=== PATIENT | male | born 1950 | race Caucasian/White ===

== ENCOUNTER 2016-09-29 15:25 | Emergency (ER) | payer MEDICARE, OTHER ==
[~2016-09-29] VITALS: Ht 180.3 cm; Wt 98.0 kg
[~2016-09-29 15:25] MED LIST: DYAZ37.52 PO; LEVI20TA PO; PERC10TA27 PO; SERT50 PO; TAMS0.4C67 PO; ZOCO40TA PO
[2016-09-29 15:30] VITALS: BP_SYST 124; BP_SYST 131; BP_SYST 151; BP_DIAS 73; BP_DIAS 81; BP_DIAS 88; PULSE 88; RESP 20; TEMP 98.9; O2SAT 99
[2016-09-29 16:05] VITALS: BP 148/93; PULSE 89; RESP 18; O2SAT 99
[2016-09-29] MEDS ORDERED: ATOR20TA15 PO (16:09)
[2016-09-29] MEDS ORDERED: SODIUM CHLORIDE 0.9% FLUSH 10 ML FLUSH IVF PRN (16:30)
[2016-09-29] MEDS ORDERED: SODIUM CHLORID 0.9% 500 ML INJ 500 ML IV ONE (16:30)
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
[2016-09-29 17:06] LABS: AUTOMATED NEUTROPHIL # 4.8 TH/MM3 (1.8-7.7); BASOPHIL # 0.1 TH/MM3 (0-0.2); BASOPHIL % 0.9 % (0.0-2.0); EOSINOPHIL # 0.2 TH/MM3 (0-0.4); EOSINOPHIL % 2.5 % (0.0-4.0); HEMATOCRIT 45.9 % (39.0-51.0); HEMO FLAGS DIFF FINAL; LYMPH % 22.1 % (9.0-44.0); LYMPHOCYTE # 1.6 TH/MM3 (1.0-4.8); MEAN CELL VOLUME 89.1 FL (80.0-100.0); MEAN CORPUSCULAR HEMOGLOBIN 30.4 PG (27.0-34.0); MEAN CORPUSCULAR HGB CONC 34.2 % (32.0-36.0); MONO % 8.3 % (0.0-8.0); NEUT % 66.2 % (16.0-70.0); PLATELET COUNT 172 TH/MM3 (150-450); RED BLOOD COUNT 5.15 MIL/MM3 (4.50-5.90); RED CELL DISTRIBUTION WIDTH 13.4 % (11.6-17.2); WHITE BLOOD COUNT 7.3 TH/MM3 (4.0-11.0)
--- NOTE | 2016-09-29 17:06 | RADRPT ---
EXAM DATE/TIME: 09/29/2016 16:56 [facility] COMPARISON: No previous studies available for comparison. INDICATIONS : Dizziness with lightheadness and pain. RADIATION DOSE: 56.35 CTDIvol (mGy) MEDICAL HISTORY : Diabetes mellitus type 2. Lumbago. SURGICAL HISTORY : Head sx in 1972 ENCOUNTER: Initial ACUITY: 1 day PAIN SCALE: 2/10 LOCATION: Bilateral cranial TECHNIQUE: Multiple contiguous axial images were obtained of the head. Using automated exposure control and adj ustment of the mA and/or kV according to patient size, radiation dose was kept as low as reasonably a chievable to obtain optimal diagnostic quality images. DICOM format image data is available electro nically for review and comparison. FINDINGS: CEREBRUM: The ventricles are normal for age. No evidence of midline shift, mass lesion, hemorrhage or acute in farction. No extra-axial fluid collections are seen. POSTERIOR FOSSA: The cerebellum and brainstem are intact. The 4th ventricle is midline. The cerebellopontine angle i s unremarkable. EXTRACRANIAL: The visualized portion of the orbits is intact. SKULL: The calvaria is intact. No evidence of skull fracture. CONCLUSION: Normal examination. Madhav Munguia MD on September 29, 2016 at 17:03 Board Certified Radiologist. This report was verified electronically.
--- NOTE | 2016-09-29 17:09 | RADRPT ---
EXAM DATE/TIME: 09/29/2016 16:40 [facility] COMPARISON: No previous studies available for comparison. INDICATIONS : Short of breath and palpitation. MEDICAL HISTORY : None. SURGICAL HISTORY : None. ENCOUNTER: Initial ACUITY: 1 day PAIN SCORE: 0/10 LOCATION: Bilateral chest FINDINGS: A single view of the chest demonstrates the lungs to be symmetrically aerated without evidence of mas s, infiltrate or effusion. The cardiomediastinal contours are unremarkable. Osseous structures are intact. CONCLUSION: 1. No acute cardiopulmonary disease. Humphrey Dudley MD on September 29, 2016 at 17:08 Board Certified Radiologist. This report was verified electronically.
[2016-09-29 17:12] LABS: APTT (PATIENT) 25.6 SEC (24.3-30.1); PROTHROMBIN TIME - PATIENT 11.2 SEC (9.8-11.6)
[2016-09-29 17:14] LABS: BLOOD, URINE NEG (NEG); COMMENT (UR) CULT NOT INDICATED; CULTURE IF INDICATED CULT NOT INDICATED; GLUCOSE,URINE TRACE mg/dL (NEG); HYALINE CAST, URINE 10 /lpf (RARE); KETONE, URINE NEG (NEG); MUCUS URINE MANY /lpf (OCC); NITRITE,URINE NEG (NEG); PH, URINE 5.5 (5.0-8.5); URINE COLOR YELLOW (YELLW/STRAW)
[2016-09-29 17:32] LABS: ALT (GPT) 27 U/L (12-78); ANION GAP 7 MEQ/L (5-15); AST (GOT) 25 U/L (15-37); BICARBONATE 26.6 MEQ/L (21.0-32.0); BLOOD UREA NITROGEN 24 MG/DL (7-18); CHLORIDE 105 MEQ/L (98-107); GLOMERULAR FILTRATION RATE 40 ML/MIN (>89); MAGNESIUM 2.3 MG/DL (1.5-2.5); POTASSIUM 3.8 MEQ/L (3.5-5.1); SODIUM (NA) 139 MEQ/L (136-145)
[2016-09-29 17:36] LABS: ALKALINE PHOSPHATASE 70 U/L (45-117); CREATINE KINASE 104 U/L (39-308); TOTAL BILIRUBIN ADULT 0.9 MG/DL (0.2-1.0)
[2016-09-29 17:48] LABS: CKMB 0.8 NG/ML (0.5-3.6)
[2016-09-29] MEDS ORDERED: MECL12.574 PO (18:38)
[2016-09-29] MEDS ORDERED: VIST25CA PO (18:38)
--- NOTE | 2016-09-30 16:16 | EKG ---
Date Performed: 09/29/2016 Time Performed: 16:09:46 PTAGE: 66 years EKG: Sinus rhythm NORMAL ECG NO PREVIOUS TRACING DOCTOR: Fabien Cook Interpretating Date/Time 09/30/2016 16:14:59
--- NOTE | 2016-10-06 21:41 | MB ---
cc: MISHAOKSANA DATE OF CONSULTATION 10/06/16 REASON FOR CONSULTATION Ataxia and vertigo. HISTORY OF PRESENT ILLNESS This is a pleasant 66-year-old man who was previously in good health until about a month ago when he started having difficulty with balance where he would tend to stagger, walk from [id number] with walking had a shuffling type of gait. Also, his sons noted a tremor which was a resting tremor. He has had cognitive decline as well as slowing down with his thought processes and left facial expressiveness. He was seen in the ER about a week ago. CT of the brain was negative. He was seen [facility] earlier today who recommended presentation to the ER again because of progressive symptoms. PERSONAL HISTORY History of non-insulin diabetes, hyperlipidemia, depression, anxiety, umbilical hernia repair. MEDICATIONS AT HOME 1. Meclizine. 2. Vistaril. 3. . 4. Lisinopril. 5. Metformin. 6. Triamcinolone. 7. Zoloft. 8. Atorvastatin. ALLERGIES PENICILLIN. SOCIAL HISTORY Drinks alcohol rarely. He does not smoke. NEUROLOGIC EXAMINATION VITAL SIGNS: Blood pressure is 160/81, pulse 83, respiratory rate is 16, temperature 98.6 degrees. NEURO: Higher cortical function, he is alert. Speech is somewhat hypophonic and somewhat slurred. His responses are somewhat slow. There is no neglect. Cranial nerves: He has got diminished facial expressiveness. Extraocular movements are intact. Pupils equal, reactive. On motor exam he has got 5/5 strength of all groups. He is bradykinetic with mild cogwheeling in the upper extremities. [id number] shows mild dysmetria. He has no tremor today. Reflexes are symmetric. LABORATORY DATA White count 6900, hemoglobin 15.1, hematocrit 42%, platelet count 148,000, PT 11.2, INR 1, APTT 24.7. Sodium is 140, potassium 3.7, chloride 104, CO2 25.3, the BUN is 22, creatinine 1.72, glucose 123, AST 26, ALT is 26, alk phos 64. Urinalysis pH is 5.5, specific gravity 1.031, protein is 30. There are 2 WBCs. IMPRESSION The patient has a number of extrapyramidal as well as cerebellar features. Would recommend an MRI of the brain to rule out posterior fossa tumor, rule out hydrocephalus, although, I doubt this with a normal CT. If the CT is negative consider lumbar puncture to further evaluate for chronic [place]NER infectious etiology, also would check the 14-3-3 protein to rule out a variant of Creutzfeldt. We also recommend labs, thyroid panel, sed rate, ASH, B12 level. If all is negative consider a trial of Sinemet to rule out Parkinson's disease, although, the rapid onset is somewhat atypical. MD DILEEP Meeks/NIKKI /8:29 PM /9:26 PM
== END 2016-09-29 19:30 | disposition home or self-care (01) ==
LOC: NEPE 15:25
DX: R42 Dizziness and giddiness (principal); G47.8 Other sleep disorders; F32.9 Major depressive disorder, single episode, unspecified; R53.1 Weakness; R63.0 Anorexia; R63.4 Abnormal weight loss; E11.9 Type 2 diabetes mellitus without complications; E78.00 Pure hypercholesterolemia, unspecified; Z87.442 Personal history of urinary calculi; Z87.39 Personal history of other diseases of the musculoskeletal system and connective tissue; Z86.59 Personal history of other mental and behavioral disorders; Z86.69 Personal history of other diseases of the nervous system and sense organs
CPT/HCPCS: 70450; 71010; 80053; 81001; 82550; 82552; 83735; 84443; 84484; 85025; 85610; 85730; 93005; 96360; 99285; J7040

== ENCOUNTER 2016-10-06 11:17 | Observation (INO) | payer OTHER ==
[2016-10-06] VITALS (8 sets, daily range): BP systolic 133–161; BP diastolic 72–86; PULSE 65–86; RESP 16–18; TEMP 98–98.7; O2SAT 98–100
[~2016-10-06] VITALS: Ht 182.9 cm; Wt 97.5 kg
[~2016-10-06 11:17] MED LIST changes: +ATOR20TA15 PO; -DYAZ37.52 PO; -LEVI20TA PO; +MECL12.574 PO; -PERC10TA27 PO; -SERT50 PO; -TAMS0.4C67 PO; +VIST25CA PO; -ZOCO40TA PO
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
[2016-10-06] MEDS ORDERED: SODIUM CHLORIDE 0.9% FLUSH 10 ML FLUSH IVF PRN (11:45)
[2016-10-06] MEDS ORDERED: CLOT1CRE TOPICAL (11:50)
[2016-10-06] MEDS ORDERED: TRIA.1%T TOPICAL (11:50)
[2016-10-06] MEDS ORDERED: LISI10TA3 PO (11:50)
[2016-10-06] MEDS ORDERED: ZOLO50TA PO (11:50)
[2016-10-06] MEDS ORDERED: METF500T PO (11:50)
--- NOTE | 2016-10-06 12:09 | RADRPT ---
EXAM DATE/TIME: 10/06/2016 11:48 [facility] COMPARISON: CHEST SINGLE AP, September 29, 2016, 16:40. INDICATIONS : Weakness and loss of appetite. MEDICAL HISTORY : None. SURGICAL HISTORY : Umbilical hernia repair. ENCOUNTER: Initial ACUITY: 3 days PAIN SCORE: 0/10 LOCATION: Bilateral chest FINDINGS: Portable AP view of the chest demonstrates a normal-sized cardiac silhouette. No effusion, consolidat ion, or pneumothorax is visualized. The bones and soft tissues demonstrate no acute abnormality. CONCLUSION: No acute cardiopulmonary abnormality is identified. Madhav Paula MD on October 06, 2016 at 12:06 Board Certified Radiologist. This report was verified electronically.
[2016-10-06 12:23] LABS: AUTOMATED NEUTROPHIL # 4.7 TH/MM3 (1.8-7.7); BASOPHIL % 0.7 % (0.0-2.0); EOSINOPHIL # 0.1 TH/MM3 (0-0.4); EOSINOPHIL % 1.4 % (0.0-4.0); HEMATOCRIT 42.9 % (39.0-51.0); LYMPH % 22.2 % (9.0-44.0); LYMPHOCYTE # 1.5 TH/MM3 (1.0-4.8); MEAN CELL VOLUME 87.9 FL (80.0-100.0); MEAN CORPUSCULAR HGB CONC 35.3 % (32.0-36.0); MONO % 7.6 % (0.0-8.0); NEUT % 68.1 % (16.0-70.0); PLATELET COUNT 148 TH/MM3 (150-450); RED BLOOD COUNT 4.87 MIL/MM3 (4.50-5.90); RED CELL DISTRIBUTION WIDTH 13.2 % (11.6-17.2); WHITE BLOOD COUNT 6.9 TH/MM3 (4.0-11.0)
[2016-10-06 12:25] LABS: HEMO FLAGS DIFF FINAL
[2016-10-06 12:28] LABS: APTT (PATIENT) 24.7 SEC (24.3-30.1); PROTHROMBIN TIME - PATIENT 11.2 SEC (9.8-11.6)
[2016-10-06 12:36] LABS: ALT (GPT) 26 U/L (12-78); ANION GAP 11 MEQ/L (5-15); AST (GOT) 26 U/L (15-37); BICARBONATE 25.3 MEQ/L (21.0-32.0); BLOOD UREA NITROGEN 22 MG/DL (7-18); CHLORIDE 104 MEQ/L (98-107); GLOMERULAR FILTRATION RATE 40 ML/MIN (>89); POTASSIUM 3.7 MEQ/L (3.5-5.1); SODIUM (NA) 140 MEQ/L (136-145)
[2016-10-06 12:40] LABS: ALKALINE PHOSPHATASE 64 U/L (45-117); CREATINE KINASE 105 U/L (39-308)
[2016-10-06] MEDS ORDERED: ACETAMINOPHEN 325 MG TAB PO PRN (14:00)
[2016-10-06] MEDS ORDERED: ONDANSETRON HCL 4 MG/2 ML VIAL IVP PRN (14:00)
[2016-10-06] MEDS ORDERED: NALOXONE HCL 0.4 MG/ML AMP IV PRN (14:00)
[2016-10-06] MEDS ORDERED: LACTULOSE SYRUP 20 GM/30 ML CUP PO PRN (14:00)
[2016-10-06] MEDS ORDERED: MAGNESIUM HYDROXIDE SUSP 30 ML CUP PO PRN (14:00)
[2016-10-06] MEDS ORDERED: BISACODYL 10 MG SUPP RECTAL PRN (14:00)
[2016-10-06] MEDS ORDERED: SODIUM CHLORIDE 0.9% FLUSH 10 ML FLUSH IV FLUSH PRN (14:00)
[2016-10-06] MEDS ORDERED: SENNOSIDES 8.6 MG TAB PO PRN (14:00)
[2016-10-06 14:34] LABS: BLOOD, URINE NEG (NEG); GLUCOSE,URINE NEG (NEG); HYALINE CAST, URINE 6 /lpf (RARE); KETONE, URINE TRACE mg/dL (NEG); MUCUS URINE MOD /lpf (OCC); NITRITE,URINE NEG (NEG); PH, URINE 5.5 (5.0-8.5); SQUAMOUS EPITHELIAL CELL URINE <1 /hpf (0-5); URINE COLOR YELLOW (YELLW/STRAW)
[2016-10-06 14:36] LABS: COMMENT (UR) CULT NOT INDICATED; CULTURE IF INDICATED CULT NOT INDICATED
--- NOTE | 2016-10-06 15:13 | HHI.HP ---
HPI Service [facility] Primary Care Physician [facility] Admission Diagnosis syncope Diagnoses: Chief Complaint: Dizziness Travel History International Travel<30 Days: No Contact w/Intl Traveler <30 Da: No Traveled to Known Affected Are: No History of Present Illness Written by Jaime Cooley, acting as scribe for Dr. Blackwood on 10/06/16 at 15:03. This note was transcribed by scribISADORA Love. I, Dr. Benjamin Blackwood personally performed the history, physical exam, and medical decision making; and confirmed the accuracy of the information in the transcribed note. Authenticated by Dr. Benjamin Blackwood on 10/06/16 at 22:12. 66-year-old male with past medical history of DM, HLD, and anxiety/depression, HTN who presented for dizziness. Patient has been having on and off episodes of dizziness for the past 2 months. He states it feels that the room is spinning and it feels acute steady on his feet. Symptoms are exacerbated whenever he stands up. He denies any sensation like he is going to pass out. He reports decreased appetite lately, but denies any nausea, vomiting, or diarrhea. He denies any history of kidney disease. He states that rarely she gets headaches. He has noticed his vision hasn't been as good for the past month. He's been having a hard time focusing. His has been noticing generalized muscle jerking. His PCP started him on Zoloft yesterday. [facility] He has been having a hard time ambulating secondary to the unsteadiness. The patient doesn' t think he had any improvement with meclizine and hydroxyzine. Review of Systems Except as stated in HPI: all other systems reviewed are Neg Past Family Social History Past Medical History Diabetes mellitus Hyperlipidemia Hypertension Anxiety/depression Past Surgical History Umbilical hernia repair Reported Medications Prescribed on recent ED visit, patient reports no improvement: Vistaril (Hydroxyzine Pamoate) 25 Mg Cap 25 Mg PO HS 10 Days Meclizine (Meclizine HCl) 12.5 Mg Tab 12.5 Mg PO TID PRN Reported Lisinopril 10 Mg Tab 5 Mg PO DAILY Clotrimazole Topical (Clotrimazole) 1% Cream 1 Applic TOPICAL DAILY Metformin (Metformin HCl) 500 Mg Tab 500 Mg PO BID With meals Triamcinolone Topical (Triamcinolone Acetonide) 0.1% Cream 1 Applic TOPICAL DAILY Zoloft (Sertraline HCl) 50 Mg Tab 25 Mg PO DAILY 7 Days After 7 days, increase to 1 whole tablet (50mg) daily Atorvastatin (Atorvastatin Calcium) 20 Mg Tab 10 Mg PO HS Allergies: Coded Allergies: Penicillin (Verified Allergy, Severe, 10/06/16) Active Ordered Medications Current Medications Medications (Trade) Dose Ordered Sig/Alyssa Route Start Time Stop Time Status Last Admin (NS 1000 ml Inj) 1,000 ml @ 100 mls/hr Q10H IV 10/06/16 15:00 (NS Flush) 2 ml UNSCH PRN IV FLUSH 10/06/16 14:00 (NS Flush) 2 ml BID IV FLUSH 10/06/16 21:00 (Tylenol) 650 mg Q4H PRN PO 10/06/16 14:00 (Zofran Inj) 4 mg Q6H PRN IVP 10/06/16 14:00 (Narcan Inj) 0.4 mg UNSCH PRN IV 10/06/16 14:00 (Ambar-Colace) 1 tab BID PO 10/06/16 21:00 (Milk Of Magnesia Liq) 30 ml Q12H PRN PO 10/06/16 14:00 (Senokot) 17.2 mg Q12H PRN PO 10/06/16 14:00 (Dulcolax Supp) 10 mg DAILY PRN RECTAL 10/06/16 14:00 (Lactulose Liq) 30 ml DAILY PRN PO 10/06/16 14:00 Family History Multiple relatives with cancer and depression Social History Has one drink every 2 or 3 days Denies any tobacco use Physical Exam Vital Signs Vital Signs Date Time Temp Pulse Resp B/P Pulse Ox O2 Delivery O2 Flow Rate FiO2 10/06/16 12:02 82 141/78 10/06/16 12:02 82 18 141/78 99 Nasal Cannula 2 10/06/16 11:48 99 Nasal Cannula 2 10/06/16 11:44 86 18 135/82 99 Room Air 10/06/16 11:29 98.6 76 16 137/72 99 Room Air 10/06/16 11:29 76 137/72 10/06/16 11:29 99 Room Air 10/06/16 11:29 98.6 73 16 137/72 99 Physical Exam GENERAL: Well-developed well-nourished. In no acute distress. SKIN: Warm and dry. No lesions noted. HEENT: Normocephalic. Pupils equal and round and reactive to light. Mucous membranes pink and moist. CARDIOVASCULAR: Regular rate and rhythm. No murmur appreciated. RESPIRATORY: No accessory muscle use. Clear to auscultation. Breath sounds equal bilaterally. GASTROINTESTINAL: Abdomen soft, non-tender, nondistended. Bowel sounds x4. MUSCULOSKELETAL: No obvious deformities. No clubbing or cyanosis. No edema. NEUROLOGICAL: Awake and alert. No focal neurological deficits. Moves upper and lower extremities spontaneously. Normal speech. Strength 5/5. Normal finger to nose and rapid alternating movement. PSYCHIATRIC: Appropriate mood and affect; insight and judgment normal. Laboratory Laboratory Tests Test 10/06/16 10/06/16 11:30 14:00 White Blood Count 6.9 Red Blood Count 4.87 Hemoglobin 15.1 Hematocrit 42.9 Mean Corpuscular Volume 87.9 Mean Corpuscular Hemoglobin 31.0 Mean Corpuscular Hemoglobin 35.3 Concent Red Cell Distribution Width 13.2 Platelet Count 148 Mean Platelet Volume 9.1 Neutrophils (%) (Auto) 68.1 Lymphocytes (%) (Auto) 22.2 Monocytes (%) (Auto) 7.6 Eosinophils (%) (Auto) 1.4 Basophils (%) (Auto) 0.7 Neutrophils # (Auto) 4.7 Lymphocytes # (Auto) 1.5 Monocytes # (Auto) 0.5 Eosinophils # (Auto) 0.1 Basophils # (Auto) 0.0 CBC Comment DIFF FINAL Differential Comment Prothrombin Time 11.2 Prothromb Time International 1.0 Ratio Activated Partial 24.7 Thromboplast Time Sodium Level 140 Potassium Level 3.7 Chloride Level 104 Carbon Dioxide Level 25.3 Anion Gap 11 Blood Urea Nitrogen 22 Creatinine 1.72 Estimat Glomerular Filtration 40 Rate Random Glucose 123 Calcium Level 9.3 Magnesium Level 2.0 Total Bilirubin 1.0 Aspartate Amino Transf 26 (AST/SGOT) Alanine Aminotransferase 26 (ALT/SGPT) Alkaline Phosphatase 64 Total Creatine Kinase 105 Creatine Kinase MB 1.0 Troponin I LESS THAN 0.02 Total Protein 7.9 Albumin 4.0 Urine Color YELLOW Urine Turbidity HAZY Urine pH 5.5 Urine Specific [place] 1.031 Urine Protein 30 Urine Glucose (UA) NEG Urine Ketones TRACE Urine Occult Blood NEG Urine Nitrite NEG Urine Bilirubin NEG Urine Urobilinogen LESS THAN 2.0 Urine Leukocyte Esterase NEG Urine RBC LESS THAN 1 Urine WBC 2 Urine Squamous Epithelial <1 Cells Urine Hyaline Casts 6 Urine Mucus MOD Microscopic Urinalysis Comment CULT NOT INDICATED Result Diagram: 10/06/16 1130 10/06/16 1130 Imaging Last Impressions Chest X-Ray 10/06/16 1136 Signed Impressions: Service Date/Time: Thursday, October 06, 2016 11:48 - CONCLUSION: No acute cardiopulmonary abnormality is identified. Madhav Paula MD Assessment and Plan Assessment and Plan 66-year-old male with past medical history of DM, HLD, and anxiety/depression, HTN who presented for dizziness Dizziness/vertigo/ataxia: Unclear etiology. Reportedly normal carotid ultrasound as outpatient. Reviewed: Head CT 09/29/16 was unremarkable. Labs with signs of dehydration. Afebrile with no leukocytosis. -Neurology consultation, further imaging per neurology -PT eval -Monitor on telemetry -neuro checks -Consider underlying psychiatric etiology if neuro workup is unremarkable GEOVANY vs CKD: Creatinine 1.72, 1.70 on 09/29/16, no previous labs for comparison. Reports poor oral intake. IVF. Follow-up labs in the a.m. Diabetes mellitus: Hold home metformin for now. Monitor Accu-Cheks. Cover with SSI if needed. DVT prophylaxis: SCDs Discussed Condition With Patient with at bedside, ED staff Jaime Cooley Oct 06, 2016 15:13 Ena Blackwood DO Oct 06, 2016 22:12
[2016-10-06] MEDS: SODIUM CHLOR 0.9% 1000 ML INJ 1,000 ML IV SCH (15:36)
[2016-10-06] MEDS ORDERED: GLUCAGON 1 MG/ML VIAL OTHER PRN (16:45)
[2016-10-06] MEDS ORDERED: DEXTROSE 50% IN WATER 50 ML VIAL(D50) IV PRN (16:45)
[2016-10-06] MEDS ORDERED: MECLIZINE HCL 25 MG TAB PO PRN (17:00)
[2016-10-06] MEDS ORDERED: PILL SPLITTER OTHER PRN (17:00)
[2016-10-06] MEDS: clonazePAM 0.5 MG TAB PO PRN ×2 (17:29→22:01)
--- NOTE | 2016-10-06 17:53 | HHI.PR ---
Addendum to Inpatient Note Addendum Reason: Additional Documentation Additional Information Called by RN to reassess patient due to patient wanting leave leave against bilingual medical assistant and family had concerns. The patient is oriented to person, place, and time. The patient does maintain an odd affect, pressured speech, and does frequently need reorientation as he frequently reverts to talking about friends he lost in [place] and enemies he had to shoot there. He does deny any intent to hurt himself or others. He does not want any further inpatient workup, because he states he trusts [facility], but he has nothing against us here. Discussed with patient's and son. They state that the patient has made statements today about shooting himself in the head and burning down the hospital. He states that the patient is denying these to everybody else. They' re concerned for their safety and feel like he might hurt them are hurt himself if he were to go home. Recommended the patient stay for psychiatric evaluation here, and he wants his IV taken out so that he can go home. Discussed with Dr. Blackwood, we will Jha act the patient and have psychiatry evaluate him here. He refused as needed Klonopin earlier today. Haldol IM as needed for agitation. Ran. Jaime Cooley Oct 06, 2016 17:53
[2016-10-06] MEDS ORDERED: HALOPERIDOL LACTATE 5 MG/ML AMP IM PRN (18:00)
[2016-10-06] MEDS: SODIUM CHLORIDE 0.9% FLUSH 10 ML FLUSH IV FLUSH SCH (21:00)
[2016-10-06] MEDS: INSULIN ASPART SUPPLEMENTAL SCALE SQ SCH (21:00)
[2016-10-06] MEDS ORDERED: ATORVASTATIN 10 MG TAB PO SCH (21:00)
[2016-10-06] MEDS ORDERED: hydrOXYzine PAMOATE 25 MG CAP PO SCH (21:00)
[2016-10-06] MEDS: DOCUSATE SODIUM 50 MG/SENNA 8.6 MG TAB PO SCH (22:02)
[2016-10-07 04:36] VITALS: BP 130/69; PULSE 69; RESP 18; TEMP 98.6; O2SAT 96
[2016-10-07] MEDS: SODIUM CHLOR 0.9% 1000 ML INJ 1,000 ML IV SCH ×2 (06:34→11:00)
[2016-10-07] MEDS: INSULIN ASPART SUPPLEMENTAL SCALE SQ SCH ×2 (07:00→12:30)
[2016-10-07 07:17] VITALS: BP 126/78; PULSE 69; RESP 18; TEMP 98.1; O2SAT 99
[2016-10-07] MEDS ORDERED: GADOBENATE DIM PF 529 MG/ML 20ML VIAL (for RAD MRI) IV ONE (08:14)
--- NOTE | 2016-10-07 08:35 | RADRPT ---
EXAM DATE/TIME: 10/07/2016 07:54 [facility] COMPARISON: No previous studies available for comparison. INDICATIONS : Ataxia. MEDICAL HISTORY : None. SURGICAL HISTORY : Umbilical hernia repair. ENCOUNTER: Initial ACUITY: 1 day PAIN SCORE: 0/10 LOCATION: cranial Please note a normal MRA of the brain does not entirely exclude the possibility of a small aneurysm, nor the possibility of distal intracranial vessel disease. TECHNIQUE: 3D time of flight MRA was performed. Source images, multiplanar STS MIP, and 3D volume MIP reconstru ctions were reviewed. FINDINGS: Anterior circulation: The internal carotid arteries demonstrate no abnormality or atherosclerotic change. A1 segments and m ore distal anterior cerebral arteries are symmetric and within normal limits. The middle cerebral art esther branches demonstrate symmetric flow related enhancement. No aneurysm or high-grade stenosis is id entified. Posterior circulation: There are patent posterior cerebral arteries bilaterally. The left vertebral artery is dominant. The basilar artery and posterior cerebral arteries demonstrate no significant stenosis or abnormality. No aneurysm is visualized. CONCLUSION: No intracranial vascular abnormality is identified. Madhav Paula MD on October 07, 2016 at 8:31 Board Certified Radiologist. This report was verified electronically.
--- NOTE | 2016-10-07 08:42 | RADRPT ---
EXAM DATE/TIME: 10/07/2016 07:54 [facility] COMPARISON: CT BRAIN W/O CONTRAST, September 29, 2016, 16:56. INDICATIONS : Ataxia CONTRAST: 18 cc Multihance (gadobenate) IV MEDICAL HISTORY : None. SURGICAL HISTORY : Umbilical hernia repair. ENCOUNTER: Initial ACUITY: 1 day PAIN SCORE: 0/10 LOCATION: cranial TECHNIQUE: Multiplanar, multisequence MRI of the brain was performed both prior to and following the administrat ion of paramagnetic contrast. FINDINGS: CEREBRUM: The ventricles are within normal limits. No evidence of midline shift, mass lesion, hemorrhage or ac [place] infarction. No extraaxial fluid collections are seen. The pituitary gland and suprasellar ciste rn are normal in configuration. WHITE MATTER: No significant signal abnormalities are seen in the white matter. POSTERIOR FOSSA: The cerebellum and brainstem demonstrate no acute finding. The 4th ventricle is midline. The cerebel lopontine angle is unremarkable. The cerebellar tonsils are normal in position. DIFFUSION IMAGING: No focal areas of restricted diffusion are seen. No evidence of acute infarction. EXTRACRANIAL: The visualized portions of the orbits and paranasal sinuses are unremarkable. POST-CONTRAST: No abnormal areas of parenchymal or dural enhancement. No evidence of blood-brain barrier breakdown. CONCLUSION: Negative brain MRI with and without intravenous contrast. No acute finding is identified. Madhav Paula MD on October 07, 2016 at 8:36 Board Certified Radiologist. This report was verified electronically.
[2016-10-07] MEDS ORDERED: SERTRALINE HCL 50 MG TAB PO SCH (09:00)
[2016-10-07] MEDS: DOCUSATE SODIUM 50 MG/SENNA 8.6 MG TAB PO SCH (09:00)
[2016-10-07] MEDS: SODIUM CHLORIDE 0.9% FLUSH 10 ML FLUSH IV FLUSH SCH (09:00)
--- NOTE | 2016-10-07 09:28 | HHI.PR ---
Subjective Remarks Follow up for dizziness. The patient denies any dizziness today however has not yet attempted ambulation this morning. Denies any headache, visual changes, unilateral numbness/weakness. He wants to go home today. Discussed his family's concerns for suicidal ideations, patient denies any suicidal or homicidal ideations however is guarded with further questioning. Objective Vitals Vital Signs Date Time Temp Pulse Resp B/P Pulse Ox O2 Delivery O2 Flow Rate FiO2 10/07/16 07:17 98.1 69 18 126/78 99 10/07/16 04:36 98.6 69 18 130/69 96 10/06/16 23:37 98.7 65 18 133/79 100 10/06/16 20:36 98.0 66 18 161/82 100 10/06/16 15:00 83 16 160/81 99 Nasal Cannula 2 10/06/16 14:00 66 16 153/86 98 Nasal Cannula 2 10/06/16 13:00 76 18 133/83 99 Nasal Cannula 2 10/06/16 12:02 82 141/78 10/06/16 12:02 82 18 141/78 99 Nasal Cannula 2 10/06/16 11:48 99 Nasal Cannula 2 10/06/16 11:44 86 18 135/82 99 Room Air 10/06/16 11:29 98.6 76 16 137/72 99 Room Air 10/06/16 11:29 76 137/72 10/06/16 11:29 99 Room Air 10/06/16 11:29 98.6 73 16 137/72 99 I/O 10/06/16 10/06/16 10/06/16 10/07/16 10/07/16 10/07/16 07:00 15:00 23:00 07:00 15:00 23:00 Intake Total 240 ml 200 ml 300 ml Balance 240 ml 200 ml 300 ml Intake Oral 240 ml 200 ml 300 ml # Voids 1 Result Diagram: 10/06/16 1130 10/06/16 1130 Imaging Last Impressions Head Magnetic Resonance Angiography 10/07/16 0000 Signed Impressions: Service Date/Time: Friday, October 07, 2016 07:54 - CONCLUSION: No intracranial vascular abnormality is identified. Madhav Paula MD Brain MRI 10/07/16 0000 Signed Impressions: Service Date/Time: Friday, October 07, 2016 07:54 - CONCLUSION: Negative brain MRI with and without intravenous contrast. No acute finding is identified. Madhav Paula MD Chest X-Ray 10/06/16 1136 Signed Impressions: Service Date/Time: Thursday, October 06, 2016 11:48 - CONCLUSION: No acute cardiopulmonary abnormality is identified. Madhav Paula MD Objective Remarks GENERAL: Well-nourished, well-developed male patient in NAD. SKIN: Warm and dry. No rash. HEENT: Normocephalic. Atraumatic. Pupils equal and round. No nystagmus. Mucous membranes pink and moist. NECK: Supple. Trachea midline. CARDIOVASCULAR: Regular rate and rhythm. S1, S2 noted. No murmur appreciated. RESPIRATORY: No accessory muscle use. Clear to auscultation. Breath sounds equal bilaterally. GASTROINTESTINAL: Abdomen soft, non-tender, nondistended. Normoactive bowel sounds x4. MUSCULOSKELETAL: No obvious deformities. Extremities without clubbing, cyanosis , or edema. NEUROLOGICAL: Awake and alert. No obvious cranial nerve deficits. Motor grossly within normal limits. 5/5 muscle strength in bilateral upper and lower extremities. Normal speech. PSYCHIATRIC: Appropriate mood and affect; insight and judgment normal. Medications and IVs Current Medications Medications (Trade) Dose Ordered Sig/Alyssa Route Start Time Stop Time Status Last Admin (NS 1000 ml Inj) 1,000 ml @ 100 mls/hr Q10H IV 10/06/16 15:00 10/07/16 06:34 (NS Flush) 2 ml UNSCH PRN IV FLUSH 10/06/16 14:00 (NS Flush) 2 ml BID IV FLUSH 10/06/16 21:00 (Tylenol) 650 mg Q4H PRN PO 10/06/16 14:00 (Zofran Inj) 4 mg Q6H PRN IVP 10/06/16 14:00 (Narcan Inj) 0.4 mg UNSCH PRN IV 10/06/16 14:00 (Ambar-Colace) 1 tab BID PO 10/06/16 21:00 10/06/16 22:02 (Milk Of Magnesia Liq) 30 ml Q12H PRN PO 10/06/16 14:00 (Senokot) 17.2 mg Q12H PRN PO 10/06/16 14:00 (Dulcolax Supp) 10 mg DAILY PRN RECTAL 10/06/16 14:00 (Lactulose Liq) 30 ml DAILY PRN PO 10/06/16 14:00 (Lipitor) 10 mg HS PO 10/06/16 21:00 10/06/16 22:02 (Vistaril) 25 mg HS PO 10/06/16 21:00 10/06/16 22:02 (Antivert) 12.5 mg TID PRN PO 10/06/16 17:00 (Zoloft) 25 mg DAILY PO 10/07/16 09:00 (D50w (Vial) Inj) 50 ml UNSCH PRN IV 10/06/16 16:45 (Glucagon Inj) 1 mg UNSCH PRN OTHER 10/06/16 16:45 (KlonoPIN) 0.5 mg Q8H PRN PO 10/06/16 17:00 10/06/16 22:01 (Pill Splitter) 1 ea UNSCH PRN OTHER 10/06/16 17:00 A/P Problem List: (1) Vertigo ICD Code: R42 Status: Acute Assessment and Plan 66-year-old male with past medical history of DM, HLD, and anxiety/depression, HTN who presented for dizziness worsening over the past 2 months Dizziness/vertigo/ataxia: Unclear etiology. Reportedly normal carotid ultrasound as outpatient. Head CT 09/29/16 images reviewed, unremarkable. Labs with signs of dehydration. Afebrile, no leukocytosis. -Neurology consulted -Brain MRI/MRA images reviewed and unremarkable -PT eval ordered -Monitor on telemetry, no acute events -check orthostatics -neuro checks -dizziness improved -Consider underlying psychiatric etiology if neuro workup is unremarkable, psychiatry consulted Suicidal Ideations: per patient's family although patient denies -currently under Jha Act -consult psychiatry -continue sitter GEOVANY vs CKD: Creatinine 1.72, 1.70 on 09/29/16, no previous labs for comparison. Reports poor oral intake. -Given IVF. -Repeat labs pending -Avoid nephrotoxins Diabetes mellitus: Hold home metformin for now. -Monitor Accu-Cheks. -Cover with SSI if needed. DVT prophylaxis: SCDs Discharge Planning 0925hrs: Possible discharge later today if cleared by neurology and psychiatry. Also awaiting PT eval. 1300hrs: Discussed with Dr. Rosado, recommends admission to psychiatry. 1400hrs: Discussed with neurologist Dr. Branham, starting patient's on Sinemet for Parkinsonian symptoms. Also given B12 replacement. Dr. Branham ok with discharge to psychiatry, will follow up with the patient there. The patient is medically clear for discharge to inpatient psychiatry. Discharge patient to inpatient psychiatry Condition on discharge: Improved Heart healthy Diet as tolerated Ad Arti activity Rx written: Sinemet Follow-up with primary care physician at the [facility] within 1 week Zayra Lynch PA-C Oct 07, 2016 9:28 am
[2016-10-07 10:26] VITALS: BP_SYST 122; BP_SYST 125; BP_SYST 136; BP_DIAS 67; BP_DIAS 75; BP_DIAS 83; PULSE 73; RESP 18; TEMP 98.1; O2SAT 97
[2016-10-07 10:27] VITALS: PULSE 80
--- NOTE | 2016-10-07 11:52 | PD.PSY.CON ---
Provisional Diagnosis Admission Date Oct 06, 2016 at 14:03 [place] I. 1. Adjustment disorder, unspecified Rule out depressive diathesis Rule out PTSD Montgomery II. Deferred Montgomery V. GAF is presently unclear History of Present Illness Service Psychiatry Consult Requested By ISADORA Cooley Reason for Consult Jha act. Made suicidal and homicidal statements to family. Primary Care Physician [facility] HPI Mr. Luong is a 66-year-old male with no reported past psychiatric history, although I do see suggestions of depression in the chart and the patient is on Zoloft and Klonopin, who presented initially voluntarily from the [place] clinic with complaints of dizziness. Reviewing the electronic medical record , I see no prior psychiatric contact within our system. The patient was apparently trying to leave the hospital yesterday and was placed under a Jha Act after family disclosed the following to ISADORA in CDU: "Discussed with patient's and son. They state that the patient has made statements today about shooting himself in the head and burning down the hospital. He states that the patient is denying these to everybody else. They' re concerned for their safety and feel like he might hurt them are hurt himself if he were to go home." Patient seen and examined. Chart reviewed. Case discussed with ISADORA in the CDU. A sitter is at the bedside. On my examination today, the patient presents as somewhat flat and psychomotor slowed. He denies making any of the threats alluded to above. He denies any suicidal or homicidal ideation on direct questioning. He denies any particular issues with mood, nor can I elicit any depressive or hypomanic/manic symptoms. Sleep is somewhat poor. Appetite reportedly fair. Denies audiovisual hallucinations. No jeniffer delusions. He says that the vertiginous sensation was of relatively recent onset, although he does have a history of head injury in the past. Remainder of the psychiatric ROS is negative. With the patient's permission, I have tried several times to obtain collateral from his , [place], over the phone to clarify the situation. I have left a voicemail requesting a call back. Past psychiatric history: The patient denies a history of psychiatric diagnosis. He denies a history of inpatient or outpatient psychiatric treatment. He denies a history of suicide attempts. Family history: The patient denies any family history of mental illness. Chemical dependency history: The patient reports occasional use of alcohol. Denies any other substance use. Social history: The patient reports that he lives with his of 41 years. He has 2 sons. He has 2 years of college. He is a retired salesman. He served in the [employer] during [place] and [place] and had an honorable discharge. He did see combat but does not describe any PTSD symptoms at this time, nor has he [facility] he tells me. He denies any legal issues. Somewhat evasive on the question of whether he has access to guns or firearms. Review of Systems Except as stated in HPI: all other systems reviewed are Neg Past Family Social History Coded Allergies: Penicillin (Verified Allergy, Severe, 10/06/16) Past Medical History See electronic medical record Active Scripts Hydroxyzine Pamoate (Vistaril)25 Mg Cap25 Mg PO HS 10 Days Ref 0 Prov:Bryanna Laws DO 09/29/16 Meclizine 12.5 Mg Tab12.5 Mg PO TID PRN (VERTIGO) #20 TAB Prov:Bryanna Laws DO 09/29/16 Reported Medications Lisinopril 10 Mg Tab5 Mg PO DAILY #30 TAB Ref 0 10/06/16 Clotrimazole Topical 1% Cream1 Applic TOPICAL DAILY #15 GM 10/06/16 Metformin 500 Mg [id number] Mg PO BID #60 TAB Ref 0 With meals 10/06/16 Triamcinolone Topical 0.1% Cream1 Applic TOPICAL DAILY Ref 0 10/06/16 Sertraline (Zoloft)50 Mg Tab25 Mg PO DAILY 7 Days Ref 0 After 7 days, increase to 1 whole tablet (50mg) daily 10/06/16 Atorvastatin 20 Mg Tab10 Mg PO HS #30 TAB Ref 0 09/29/16 Current Medications Medications (Trade) Dose Ordered Sig/Alyssa Route Start Time Stop Time Status Last Admin (NS 1000 ml Inj) 1,000 ml @ 100 mls/hr Q10H IV 10/06/16 15:00 10/07/16 06:34 (NS Flush) 2 ml UNSCH PRN IV FLUSH 10/06/16 14:00 (NS Flush) 2 ml BID IV FLUSH 10/06/16 21:00 (Tylenol) 650 mg Q4H PRN PO 10/06/16 14:00 (Zofran Inj) 4 mg Q6H PRN IVP 10/06/16 14:00 (Narcan Inj) 0.4 mg UNSCH PRN IV 10/06/16 14:00 (Ambar-Colace) 1 tab BID PO 10/06/16 21:00 10/06/16 22:02 (Milk Of Magnesia Liq) 30 ml Q12H PRN PO 10/06/16 14:00 (Senokot) 17.2 mg Q12H PRN PO 10/06/16 14:00 (Dulcolax Supp) 10 mg DAILY PRN RECTAL 10/06/16 14:00 (Lactulose Liq) 30 ml DAILY PRN PO 10/06/16 14:00 (Lipitor) 10 mg HS PO 10/06/16 21:00 10/06/16 22:02 (Vistaril) 25 mg HS PO 10/06/16 21:00 10/06/16 22:02 (Antivert) 12.5 mg TID PRN PO 10/06/16 17:00 (Zoloft) 25 mg DAILY PO 10/07/16 09:00 10/07/16 09:21 (D50w (Vial) Inj) 50 ml UNSCH PRN IV 10/06/16 16:45 (Glucagon Inj) 1 mg UNSCH PRN OTHER 10/06/16 16:45 (KlonoPIN) 0.5 mg Q8H PRN PO 10/06/16 17:00 10/06/16 22:01 (Pill Splitter) 1 ea UNSCH PRN OTHER 10/06/16 17:00 Patient's Strengths (min. 2) In a monitored setting. Verbally fluent. Physical Exam Physical examination completed by primary team. On my examination today, the patient appears to be in no acute physical distress. No motor abnormalities noted. Labs and vitals reviewed: Vital Signs Vital Signs Date Time Temp Pulse Resp B/P Pulse Ox O2 Delivery O2 Flow Rate FiO2 10/07/16 10:27 80 10/07/16 10:26 98.1 18 136/75 97 122/67 125/83 10/06/16 15:00 Nasal Cannula 2 I/O 10/06/16 10/06/16 10/07/16 08:00 16:00 00:00 Intake Total 240 ml 200 ml Balance 240 ml 200 ml Lab Results Laboratory Tests Test 10/06/16 10/06/16 10/06/16 11:30 14:00 23:21 White Blood Count 6.9 TH/MM3 Red Blood Count 4.87 MIL/MM3 Hemoglobin 15.1 GM/DL Hematocrit 42.9 % Mean Corpuscular Volume 87.9 FL Mean Corpuscular Hemoglobin 31.0 PG Mean Corpuscular Hemoglobin 35.3 % Concent Red Cell Distribution Width 13.2 % Platelet Count 148 TH/MM3 Mean Platelet Volume 9.1 FL Neutrophils (%) (Auto) 68.1 % Lymphocytes (%) (Auto) 22.2 % Monocytes (%) (Auto) 7.6 % Eosinophils (%) (Auto) 1.4 % Basophils (%) (Auto) 0.7 % Neutrophils # (Auto) 4.7 TH/MM3 Lymphocytes # (Auto) 1.5 TH/MM3 Monocytes # (Auto) 0.5 TH/MM3 Eosinophils # (Auto) 0.1 TH/MM3 Basophils # (Auto) 0.0 TH/MM3 CBC Comment DIFF FINAL Differential Comment Prothrombin Time 11.2 SEC Prothromb Time International 1.0 RATIO Ratio Activated Partial 24.7 SEC Thromboplast Time Sodium Level 140 MEQ/L Potassium Level 3.7 MEQ/L Chloride Level 104 MEQ/L Carbon Dioxide Level 25.3 MEQ/L Anion Gap 11 MEQ/L Blood Urea Nitrogen 22 MG/DL Creatinine 1.72 MG/DL Estimat Glomerular Filtration 40 ML/MIN Rate Random Glucose 123 MG/DL Calcium Level 9.3 MG/DL Magnesium Level 2.0 MG/DL Total Bilirubin 1.0 MG/DL Aspartate Amino Transf 26 U/L (AST/SGOT) Alanine Aminotransferase 26 U/L (ALT/SGPT) Alkaline Phosphatase 64 U/L Total Creatine Kinase 105 U/L Creatine Kinase MB 1.0 NG/ML Troponin I LESS THAN 0.02 NG/ML Total Protein 7.9 GM/DL Albumin 4.0 GM/DL Urine Color YELLOW Urine Turbidity HAZY Urine pH 5.5 Urine Specific [place] 1.031 Urine Protein 30 mg/dL Urine Glucose (UA) NEG mg/dL Urine Ketones TRACE mg/dL Urine Occult Blood NEG Urine Nitrite NEG Urine Bilirubin NEG Urine Urobilinogen LESS THAN 2.0 MG/DL Urine Leukocyte Esterase NEG Urine RBC LESS THAN 1 /hpf Urine WBC 2 /hpf Urine Squamous Epithelial <1 /hpf Cells Urine Hyaline Casts 6 /lpf Urine Mucus MOD /lpf Microscopic Urinalysis Comment CULT NOT INDICATED Erythrocyte Sedimentation Rate 16 mm/hr Vitamin B12 Level 235 PG/ML Thyroid Stimulating Hormone 1.570 uIU/ML 3rd Gen Last Impressions Head Magnetic Resonance Angiography 10/07/16 0000 Signed Impressions: Service Date/Time: Friday, October 07, 2016 07:54 - CONCLUSION: No intracranial vascular abnormality is identified. Madhav Paula MD Brain MRI 10/07/16 0000 Signed Impressions: Service Date/Time: Friday, October 07, 2016 07:54 - CONCLUSION: Negative brain MRI with and without intravenous contrast. No acute finding is identified. Madhav Paula MD Chest X-Ray 10/06/16 1136 Signed Impressions: Service Date/Time: Thursday, October 06, 2016 11:48 - CONCLUSION: No acute cardiopulmonary abnormality is identified. Madhav Paula MD Mental Status Examination Patient is in hospital gown. He is well groomed. He is awake and alert and oriented 3. No evidence of delirium. No motor abnormalities noted. Speech within normal limits for rate, tone and volume. Language and fund of knowledge average. Denies mood issues and affect blunted, tending towards flat. Thought process a little slowed but linear. No loosening of associations. No delusions elicited. No audiovisual hallucinations. Denies suicidal or homicidal ideation. Insight and judgment are unclear. Assessment & Plan Problem List: (1) Adjustment disorder ICD Code: F43.20 Assessment & Plan This is a 66-year-old male with psychiatric history as detailed above who is presently admitted to the CDU and under a Jha act. Patient is alleged to have made suicidal and violent threats to family yesterday. He denies making any such threats today and denies suicidal or homicidal ideation at this time. He is somewhat psychomotor slowed and his affect a little flat, but there is otherwise very little evidence of any sort of unstable psychiatric illness in this patient. My best guess would be that the patient was upset yesterday and made the alleged statements, if he did so at all, in this context. However, in the absence of reassuring collateral I think that the most prudent course of action is to continue to observe the patient. If the patient is medically cleared, he may be transferred to the inpatient psychiatric unit for further observation there. Sitter while patient remains in the CDU. Case discussed with PA in the CDU Arnoldo Lynch. Thank you very much for this consultation. Problem Qualifiers (1) Adjustment disorder: Qualified Code: F43.20 - Adjustment disorder, unspecified type Kranthi Rosado MD Oct 07, 2016 11:52
[2016-10-07 12:34] VITALS: BP 140/75; PULSE 69; RESP 20; TEMP 98; O2SAT 98
--- NOTE | 2016-10-07 13:40 | EKG ---
Date Performed: 10/06/2016 Time Performed: 11:39:02 PTAGE: 66 years EKG: Sinus rhythm NORMAL ECG PREVIOUS TRACING : 09/29/2016 16.09 Since previous tracing, no significant change noted DOCTOR: Demetrice Yepez Interpretating Date/Time 10/07/2016 13:38:06
--- NOTE | 2016-10-07 13:57 | HHI.PR ---
Review/Management Diagnosis He has Parkinsonian sx and low B12. Plan vitamin B12 supplements trial of sinemet Diagnosis/Plan: Subjective Subjective Comments No acute events reported I saw patient yesterday in consult and dictated note--but note not yet on the chart. Active Medications Current Medications Medications (Trade) Dose Ordered Sig/Alyssa Route Start Time Stop Time Status Last Admin (NS 1000 ml Inj) 1,000 ml @ 100 mls/hr Q10H IV 10/06/16 15:00 10/07/16 06:34 (NS Flush) 2 ml UNSCH PRN IV FLUSH 10/06/16 14:00 (NS Flush) 2 ml BID IV FLUSH 10/06/16 21:00 (Tylenol) 650 mg Q4H PRN PO 10/06/16 14:00 (Zofran Inj) 4 mg Q6H PRN IVP 10/06/16 14:00 (Narcan Inj) 0.4 mg UNSCH PRN IV 10/06/16 14:00 (Ambar-Colace) 1 tab BID PO 10/06/16 21:00 10/06/16 22:02 (Milk Of Magnesia Liq) 30 ml Q12H PRN PO 10/06/16 14:00 (Senokot) 17.2 mg Q12H PRN PO 10/06/16 14:00 (Dulcolax Supp) 10 mg DAILY PRN RECTAL 10/06/16 14:00 (Lactulose Liq) 30 ml DAILY PRN PO 10/06/16 14:00 (Lipitor) 10 mg HS PO 10/06/16 21:00 10/06/16 22:02 (Vistaril) 25 mg HS PO 10/06/16 21:00 10/06/16 22:02 (Antivert) 12.5 mg TID PRN PO 10/06/16 17:00 (Zoloft) 25 mg DAILY PO 10/07/16 09:00 10/07/16 09:21 (D50w (Vial) Inj) 50 ml UNSCH PRN IV 10/06/16 16:45 (Glucagon Inj) 1 mg UNSCH PRN OTHER 10/06/16 16:45 (KlonoPIN) 0.5 mg Q8H PRN PO 10/06/16 17:00 10/06/16 22:01 (Pill Splitter) 1 ea UNSCH PRN OTHER 10/06/16 17:00 Allergies Allergies Coded Allergies Penicillin (Verified Allergy, Severe, 10/06/16) Exam I&O / VS 10/06/16 10/06/16 10/07/16 15:00 23:00 07:00 Intake Total 240 ml 200 ml 300 ml Balance 240 ml 200 ml 300 ml Intake Oral 240 ml 200 ml 300 ml # Voids 1 Vital Signs Date Time Temp Pulse Resp B/P Pulse Ox O2 Delivery O2 Flow Rate FiO2 10/07/16 12:34 98.0 69 20 140/75 98 10/07/16 10:27 80 10/07/16 10:26 98.1 73 18 136/75 97 122/67 125/83 10/07/16 07:17 98.1 69 18 126/78 99 10/07/16 04:36 98.6 69 18 130/69 96 10/06/16 23:37 98.7 65 18 133/79 100 10/06/16 20:36 98.0 66 18 161/82 100 10/06/16 15:00 83 16 160/81 99 Nasal Cannula 2 10/06/16 14:00 66 16 153/86 98 Nasal Cannula 2 Exam Comments alert speech hypophonic decrease facial expresion eomi MOTOR--bradykinetic 07/07 BUE and BLE, cogwheeling BUE Objective Radiology Results MRI brain normal MRA normal brain Micro and Labs Laboratory Tests Test 10/06/16 10/06/16 14:00 23:21 Urine Color YELLOW Urine Turbidity HAZY Urine pH 5.5 Urine Specific [place] 1.031 Urine Protein 30 Urine Glucose (UA) NEG Urine Ketones TRACE Urine Occult Blood NEG Urine Nitrite NEG Urine Bilirubin NEG Urine Urobilinogen LESS THAN 2.0 Urine Leukocyte Esterase NEG Urine RBC LESS THAN 1 Urine WBC 2 Urine Squamous Epithelial <1 Cells Urine Hyaline Casts 6 Urine Mucus MOD Microscopic Urinalysis Comment CULT NOT INDICATED Erythrocyte Sedimentation Rate 16 Vitamin B12 Level 235 Thyroid Stimulating Hormone 1.570 3rd Gen Miguelito Branham PhD MD Oct 07, 2016 13:57
[2016-10-07] MEDS ORDERED: CYANOCOBALAMIN 1000 MCG/ML VIAL IM ONE (14:00)
[2016-10-07] MEDS ORDERED: CARB25TA9 PO (14:10)
[2016-10-07] MEDS ORDERED: CARBIDOPA/LEVODOPA 25 MG/100 MG TAB PO SCH (21:00)
[2016-10-09 10:03] LABS: RAPID PLASMA REAGIN SCREEN NON-REACTIVE (NON-REACTVE)
[2016-10-09 15:49] LABS: ANA SCREEN NEG (NEG)
== END 2016-10-07 15:17 ==
LOC: NEPE 11:17 → NEDA 14:03 → NEPGCP 17:50
PROVIDERS: ADMIT Hospitalist; ATTEND Hospitalist
DX: R55 Syncope and collapse (principal); R42 Dizziness and giddiness; R63.0 Anorexia; R53.83 Other fatigue; R41.0 Disorientation, unspecified; R45.1 Restlessness and agitation; R45.851 Suicidal ideations; R25.8 Other abnormal involuntary movements; R53.1 Weakness; R27.0 Ataxia, unspecified; I10 Essential (primary) hypertension; E78.5 Hyperlipidemia, unspecified; E78.00 Pure hypercholesterolemia, unspecified; E11.9 Type 2 diabetes mellitus without complications; F41.9 Anxiety disorder, unspecified; F32.9 Major depressive disorder, single episode, unspecified; F41.0 Panic disorder [episodic paroxysmal anxiety]; M54.5 Low back pain; G89.29 Other chronic pain; G43.909 Migraine, unspecified, not intractable, without status migrainosus; Z79.84 Long term (current) use of oral hypoglycemic drugs; Z79.899 Other long term (current) drug therapy
CPT/HCPCS: 70544; 70553; 71010; 80053; 81001; 82550; 82552; 82607; 82948; 83735; 84443; 84484; 85025; 85610; 85652; 85730; 86038; 86592; 93005; 96360; 96361; 96372; 97162; 99285; A9577; G0378; G8987; G8988; J3420; J7030; Q0177

== ENCOUNTER 2016-10-07 14:30 | Inpatient (IN) | payer OTHER, MEDICARE ==
[~2016-10-07] VITALS: Ht 180.3 cm; Wt 90.5 kg
[~2016-10-07 14:30] MED LIST changes: +CARB25TA9 PO; +CLOT1CRE TOPICAL; +LISI10TA3 PO; +METF500T PO; +TRIA.1%T TOPICAL; +ZOLO50TA PO
[2016-10-07] MEDS ORDERED: GLUCAGON 1 MG/ML VIAL OTHER PRN (16:15)
[2016-10-07] MEDS ORDERED: BENZTROPINE MESYLATE 2 MG/2 ML VIAL IM PRN (16:15)
[2016-10-07] MEDS ORDERED: DEXTROSE 50% IN WATER 50 ML VIAL(D50) IV PRN (16:15)
[2016-10-07] MEDS ORDERED: BENZTROPINE MESYLATE 1 MG TAB PO PRN (16:15)
[2016-10-07] MEDS ORDERED: MAGNESIUM HYDROXIDE SUSP 30 ML CUP PO PRN (16:15)
[2016-10-07] MEDS ORDERED: MECLIZINE HCL 25 MG TAB PO PRN (16:15)
[2016-10-07] MEDS ORDERED: ALUMINUM/MAGNESIUM/SIMETH 30 ML CUP PO PRN (16:15)
[2016-10-07 16:41] VITALS: BP 130/92; PULSE 87; RESP 18
[2016-10-07] MEDS ORDERED: PILL SPLITTER OTHER PRN (16:45)
[2016-10-07 17:00] VITALS: BP 101/75; PULSE 74; RESP 16; TEMP 97.9; O2SAT 99
[2016-10-07] MEDS: INSULIN ASPART SUPPLEMENTAL SCALE SQ SCH (21:00)
[2016-10-07] MEDS: ATORVASTATIN 10 MG TAB PO SCH (21:23)
[2016-10-07] MEDS: CARBIDOPA/LEVODOPA 25 MG/100 MG TAB PO SCH (21:23)
[2016-10-07] MEDS: metFORMIN HCL 500 MG TAB PO SCH (21:23)
[2016-10-07] MEDS: hydrOXYzine PAMOATE 25 MG CAP PO SCH (21:24)
[2016-10-07] MEDS: diphenhydrAMINE HCL 50 MG CAP PO PRN (21:24)
[2016-10-08 05:49] VITALS: BP 128/95; PULSE 98; RESP 16; TEMP 97.5; O2SAT 98
[2016-10-08] MEDS: INSULIN ASPART SUPPLEMENTAL SCALE SQ SCH ×5 (06:17→20:51)
[2016-10-08] MEDS ORDERED: REMOVE OLD PATCH T-DERMAL SCH (09:00)
[2016-10-08] MEDS ORDERED: NICOTINE 21 MG/24 HR PATCH T-DERMAL SCH (09:00)
[2016-10-08] MEDS: TRIAMCINOLONE ACETONIDE 0.1% CREAM 15 GM TOPICAL SCH (09:00)
[2016-10-08] MEDS ORDERED: SERTRALINE HCL 50 MG TAB PO SCH (09:00)
[2016-10-08] MEDS: metFORMIN HCL 500 MG TAB PO SCH (09:46)
[2016-10-08] MEDS: CARBIDOPA/LEVODOPA 25 MG/100 MG TAB PO SCH ×2 (09:46→20:47)
[2016-10-08] MEDS: CLOTRIMAZOLE 1% CREAM 15 GM TOPICAL SCH (09:47)
--- NOTE | 2016-10-08 09:47 | HHI.HP ---
Provisional Diagnosis Admission Date Oct 07, 2016 at 14:30 [place]. 1. Adjustment disorder, unspecified Rule out PTSD Rule out mild neurocognitive disorder Rule out primary psychotic process, although this seems significantly less likely [place]. Deferred Certification of Person's Competence To Provide Express and Informed Consent I have personally examined James Luong , a person being served at [facility] on, Oct 08, 2016 09:30. Express and informed consent means consent voluntarily given in writing, by a competent person, after sufficient explanation and disclosure of the subject matter involved to enable the person to make a knowing and willful decision without any element of force, fraud, deceit, duress, or other form of constraint or coercion. This person is 18 years of age or older, is not now known to be incompetent to consent to treatment with a guardian advocate, and does not have a health care surrogate or proxy currently making medical treatment decisions. I have found this person to be one of the following: [x] Competent to provide express and informed consent, as defined above, for voluntary admission to this facility and is competent to provide express and informed consent for treatment. He/she has the consistent capacity to make well reasoned, willful, and knowing decisions concerning his or her medical or mental health treatment. The person fully and consistently understands the purpose of the admission for examination/placement and is fully capable of personally exercising all rights assured under [place] Incompetent to provide express and informed consent to voluntary admission, and this is incompetent to provide express and informed consent to treatment. The person must be transferred to involuntary status and a petition for a guardian advocate filed with the Circuit Court. [] Refusing to provide express and informed consent to voluntary admission but is competent to provide express and informed consent for treatment. The person must be discharged or transferred to involuntary status. Form shall be completed within 24 hours of a person's arrival at the receiving facility and filed in the clinical record of each person: 1. Admitted on a voluntary basis 2. Permitted to provide express and informed consent to his/her own treatment 3. Allowed to transfer from involuntary to voluntary status 4. Prior to permitting a person to consent to his or her own treatment after having been previously found incompetent to consent to treatment. History of Present Illness Capacity: Has Capacity HPI From my consult note yesterday in the CDU: Mr. Luong is a 66-year-old male with no reported past psychiatric history, although I do see suggestions of depression in the chart and the patient is on Zoloft and Klonopin, who presented initially voluntarily from the [facility] with complaints of dizziness. Reviewing the electronic medical record , I see no prior psychiatric contact within our system. The patient was apparently trying to leave the hospital yesterday and was placed under a Jha Act after family disclosed the following to PA in CDU: "Discussed with patient's and son. They state that the patient has made statements today about shooting himself in the head and burning down the hospital. He states that the patient is denying these to everybody else. They' re concerned for their safety and feel like he might hurt them are hurt himself if he were to go home." Patient seen and examined. Chart reviewed. Case discussed with PA in the CDU. A sitter is at the bedside. On my examination today, the patient presents as somewhat flat and psychomotor slowed. He denies making any of the threats alluded to above. He denies any suicidal or homicidal ideation on direct questioning. He denies any particular issues with mood, nor can I elicit any depressive or hypomanic/manic symptoms. Sleep is somewhat poor. Appetite reportedly fair. Denies audiovisual hallucinations. No jeniffer delusions. He says that the vertiginous sensation was of relatively recent onset, although he does have a history of head injury in the past. Remainder of the psychiatric ROS is negative. With the patient's permission, I have tried several times to obtain collateral from his , [place], over the phone to clarify the situation. I have left a voicemail requesting a call back. Past psychiatric history: The patient denies a history of psychiatric diagnosis. He denies a history of inpatient or outpatient psychiatric treatment. He denies a history of suicide attempts. Family history: The patient denies any family history of mental illness. Chemical dependency history: The patient reports occasional use of alcohol. Denies any other substance use. Social history: The patient reports that he lives with his of 41 years. He has 2 sons. He has 2 years of college. He is a retired salesman. He served in the [employer] during [place] and [place] and had an honorable discharge. He did see combat but does not describe any PTSD symptoms at this time, nor has he [facility] this [facility] he tells me. He denies any legal issues. Somewhat evasive on the question of whether he has access to guns or firearms. On my exam today: Patient seen and examined. Chart reviewed. Case discussed with nursing staff. No problematic behaviors noted overnight by nursing staff. On my examination today, I discussed the patient's 's concerns obtained from telephone collateral with the patient. He agrees that he has been somewhat more short- tempered of late. "The news infuriates me and we're the dummies paying for it. I seen it myself when I was in the . Waste, vast quantities of waste. " He speaks quite a bit about his experiences in [place], and this seems quite fresh for him. He does endorse some re-experiencing and hyperarousal but no real avoidance. He does say that he worries that his short temper places him at risk for violence, noting "I don't want to hurt anyone that I don't want to hurt up here [gesturing to his head]." He denies any HI. No SI. Otherwise no new psychiatric symptomatology versus yesterday. Past psychiatric, family, chemical dependency and social history are likewise unchanged. Review of Systems Except as stated in HPI: all other systems reviewed are Neg Past Psych History Psychological trauma history History of combat trauma Violence risk - others (6 mos) Indeterminate. Patient denies any homicidal ideation at this time. Violence risk - self (6 mos) Suspect lower imminent risk. No suicidal ideation. Substance Abuse History Drugs/Alcohol past 12 months See above Past Family Social History Coded Allergies: Penicillin (Verified Allergy, Severe, 10/06/16) Past Medical History See electronic medical record Active Scripts Carbidopa-Levodopa 25-100 Mg Tab1 Tab PO Q12HR #60 TAB Prov:Zayra Lynch PA-C 10/07/16 Hydroxyzine Pamoate (Vistaril)25 Mg Cap25 Mg PO HS 10 Days Ref 0 Prov:Bryanna Laws DO 09/29/16 Meclizine 12.5 Mg Tab12.5 Mg PO TID PRN (VERTIGO) #20 TAB Prov:Bryanna Laws DO 09/29/16 Reported Medications Clotrimazole Topical 1% Cream1 Applic TOPICAL DAILY #15 GM 10/06/16 Metformin 500 Mg Ikj232 Mg PO BID #60 TAB Ref 0 With meals 10/06/16 Triamcinolone Topical 0.1% Cream1 Applic TOPICAL DAILY Ref 0 10/06/16 Sertraline (Zoloft)50 Mg Tab25 Mg PO DAILY 7 Days Ref 0 After 7 days, increase to 1 whole tablet (50mg) daily 10/06/16 Atorvastatin 20 Mg Tab10 Mg PO HS #30 TAB Ref 0 09/29/16 Discontinued Reported Medications Lisinopril 10 Mg Tab5 Mg PO DAILY #30 TAB Ref 0 10/06/16 Current Medications Medications (Trade) Dose Ordered Sig/Alyssa Route Start Time Stop Time Status Last Admin (Ativan) 1 mg Q6H PRN PO 10/07/16 16:15 (Ativan Inj) 1 mg Q6H PRN IM 10/07/16 16:15 (Benadryl) 50 mg HS PRN PO 10/07/16 16:15 10/07/16 21:24 (Tylenol) 650 mg Q4H PRN PO 10/07/16 16:15 (Milk Of Magnesia Liq) 30 ml DAILY PRN PO 10/07/16 16:15 (Mag-Al Plus Susp Liq) 30 ml Q6H PRN PO 10/07/16 16:15 (Cogentin) 1 mg Q12H PRN PO 10/07/16 16:15 (Cogentin Inj) 1 mg Q12H PRN IM 10/07/16 16:15 (Lipitor) 10 mg HS PO 10/07/16 21:00 10/07/16 21:23 (Sinemet 25-100 Mg) 1 tab Q12HR PO 10/07/16 21:00 10/07/16 21:23 (Lotrimin 1% Cream) 1 applic DAILY TOPICAL 10/08/16 09:00 (Vistaril) 25 mg HS PO 10/07/16 21:00 10/07/16 21:24 (Antivert) 12.5 mg TID PRN PO 10/07/16 16:15 (Glucophage) 500 mg BID PO 10/07/16 21:00 10/07/16 21:23 (Zoloft) 25 mg DAILY PO 10/08/16 09:00 (Aristocort 0.1% Cream) 1 applic DAILY TOPICAL 10/08/16 09:00 (D50w (Vial) Inj) 50 ml UNSCH PRN IV 10/07/16 16:15 (Glucagon Inj) 1 mg UNSCH PRN OTHER 10/07/16 16:15 (Pill Splitter) 1 ea UNSCH PRN OTHER 10/07/16 16:45 Patient's Strengths (min. 2) In a monitored setting. Verbally fluent. Physical Exam Physical exam completed in CDU prior to transfer to the inpatient psychiatric unit. On my examination today, the patient appears to be in no acute physical distress. Somewhat shuffling gait but otherwise no motor abnormalities noted. The patient has been started on Sinemet for parkinsonism. Labs and vitals reviewed: Vital Signs Vital Signs Date Time Temp Pulse Resp B/P Pulse Ox O2 Delivery O2 Flow Rate FiO2 10/08/16 05:49 97.5 98 16 128/95 98 Lab Results Item Value Date Time White Blood Count 6.9 TH/MM3 10/06/16 1130 Hemoglobin 15.1 GM/DL 10/06/16 1130 Platelet Count 148 TH/MM3 L 10/06/16 1130 Sodium Level 140 MEQ/L 10/06/16 1130 Potassium Level 3.7 MEQ/L 10/06/16 1130 Chloride Level 104 MEQ/L 10/06/16 1130 Carbon Dioxide Level 25.3 MEQ/L 10/06/16 1130 Blood Urea Nitrogen 22 MG/DL H 10/06/16 1130 Creatinine 1.72 MG/DL H 10/06/16 1130 Aspartate Amino Transf (AST/SGOT) 26 U/L 10/06/16 1130 Alanine Aminotransferase (ALT/SGPT) 26 U/L 10/06/16 1130 Alkaline Phosphatase 64 U/L 10/06/16 1130 Vitamin B12 Level 235 PG/ML 10/06/16 2321 Thyroid Stimulating Hormone 3rd Gen 1.570 uIU/ML 10/06/16 2321 ASH and RPR still pending. MRI of the brain was read as unremarkable. Mental Status Examination Patient is casually dressed. He is well groomed. He is awake and alert and oriented to person, October 2016, hospital in [place]. He struggles to spell the word world backward and likewise struggles with serial sevens. He is able to name 2 items and repeat a phrase. His registration is 3 out of 3 and recall 2 out of 3 at 3 minutes. No evidence of delirium. Motor exam as above noted. Speech within normal limits for rate, tone and volume. Language and fund of knowledge average. No issues with mood and affect somewhat blunted, tending towards flat. Thought process perseverative as above. No loosening of associations. No delusions elicited. No audiovisual hallucinations. Denies suicidal or homicidal ideation. Insight and judgment remain unclear. Assessment & Plan Problem List: (1) Adjustment disorder ICD Code: F43.20 Assessment & Plan This is a 66-year-old male with psychiatric history as detailed above presently admitted to the inpatient psychiatric unit under a Jha act. Collateral obtained from patient's yesterday suggested more psychotic symptomatology as well as increased irritability. The patient admits to being somewhat more quick to anger lately. He does seem to be somewhat perseverative on his experiences in the in [place] and does endorse reexperiencing and hyperarousal but I suspect may be part of a posttraumatic stress reaction. It is unclear, however, why he would come more symptomatic within the last month or so. There are also some subtle neurocognitive abnormalities that are presently unexplained. Primary psychotic process seems less likely but not definitively ruled out. Patient requires psychiatric hospitalization at this time for safety, observation and stabilization. Admit inpatient. Voluntary status. Consult to the hospitalist to continue to follow from the CDU. Continue general medical medications with further adjustments as per the hospitalist. Consult to neurology to continue to follow as the patient was started on Sinemet. Consult PT to continue to follow on the inpatient psychiatric unit. Falls precautions. Follow-up labs. On the likelihood that patient's current symptomatology is related to posttraumatic stress, I will titrate his Zoloft to 50 mg daily. To consider prazosin or other augmenting agents used in the treatment of PTSD. Ativan as needed for anxiety, Cogentin as needed for EPS, Benadryl as needed for sleep. Vitals every shift. Counselor to see. Disposition planning. Estimated length of stay : 5-7 days. Discharge Planning Pending outcome of observation Request HC Surrog/Guard Advoc?: No Problem Qualifiers (1) Adjustment disorder: Qualified Code: F43.20 - Adjustment disorder, unspecified type Kranthi Rosado MD Oct 08, 2016 09:47
[2016-10-08 14:26] LABS: ANION GAP 11 MEQ/L (5-15); BICARBONATE 25.1 MEQ/L (21.0-32.0); BLOOD UREA NITROGEN 20 MG/DL (7-18); CHLORIDE 103 MEQ/L (98-107); GLOMERULAR FILTRATION RATE 47 ML/MIN (>89); SODIUM (NA) 139 MEQ/L (136-145)
[2016-10-08 14:30] LABS: LDL CHOLESTEROL 96 MG/DL (0-99)
[2016-10-08 16:57] VITALS: BP 174/79; PULSE 111; RESP 18; TEMP 97.7; O2SAT 98
[2016-10-08] MEDS ORDERED: POTASSIUM CHLORIDE 10 MEQ CONTROLLED RELEASE TAB PO ONE (17:00)
[2016-10-08 17:55] VITALS: BP 166/77; PULSE 78
--- NOTE | 2016-10-08 18:09 | PD.CONS ---
HPI Service [facility] Hospitalists Consult Requested By Psychiatric services Reason for Consult Medical management Primary Care Physician [facility] Diagnoses: History of Present Illness Written by Jessy Schneider PA-C acting as scribe for Dr. Ruelas on 10/08/16 at 17 :47. This 66-year-old male with past medical history significant for depression, hypertension, diabetes and dyslipidemia who came in with complaints of dizziness. Patient was seen in consultation by neurology. Head CT was negative. Currently patient had normal carotid ultrasound done as an outpatient. Brain MRI and MRA were negative. Per neuro evaluation, patient with parkinsonian symptoms and low B12. Patient started on B12 supplementation and Sinemet. Patient attempted to leave AGAINST MEDICAL ADVICE. Patient's family voiced concerns that he might hurt himself. Per the and son, patient had made statements regarding shooting himself in the head and burning down the hospital. Patient was evaluated by psychiatry and has been admitted to the inpatient psychiatric unit. Hospitalist service consulted for medical management. Patient seen and examined today. Patient denies any complaints except for blurry vision but states he needs new glasses. He denies any fever or chills. Denies any chest pain or shortness of breath. Denies any nausea, vomiting or abdominal pain. Review of Systems Except as stated in HPI: all other systems reviewed are Neg Past Family Social History Allergies: Coded Allergies: Penicillin (Verified Allergy, Severe, 10/06/16) Past Medical History Hypertension Diabetes Dyslipidemia Depression Past Surgical History Umbilical hernia repair Reported Medications Lisinopril 10 Mg Tab 5 Mg PO DAILY Clotrimazole Topical (Clotrimazole) 1% Cream 1 Applic TOPICAL DAILY Metformin (Metformin HCl) 500 Mg Tab 500 Mg PO BID With meals Triamcinolone Topical (Triamcinolone Acetonide) 0.1% Cream 1 Applic TOPICAL DAILY Zoloft (Sertraline HCl) 50 Mg Tab 25 Mg PO DAILY 7 Days After 7 days, increase to 1 whole tablet (50mg) daily Atorvastatin (Atorvastatin Calcium) 20 Mg Tab 10 Mg PO HS Active Ordered Medications Current Medications Medications (Trade) Dose Ordered Sig/Alyssa Route Start Time Stop Time Status Last Admin (Ativan) 1 mg Q6H PRN PO 10/07/16 16:15 (Ativan Inj) 1 mg Q6H PRN IM 10/07/16 16:15 (Benadryl) 50 mg HS PRN PO 10/07/16 16:15 10/07/16 21:24 (Tylenol) 650 mg Q4H PRN PO 10/07/16 16:15 (Milk Of Magnesia Liq) 30 ml DAILY PRN PO 10/07/16 16:15 (Mag-Al Plus Susp Liq) 30 ml Q6H PRN PO 10/07/16 16:15 (Cogentin) 1 mg Q12H PRN PO 10/07/16 16:15 (Cogentin Inj) 1 mg Q12H PRN IM 10/07/16 16:15 (Lipitor) 10 mg HS PO 10/07/16 21:00 10/07/16 21:23 (Sinemet 25-100 Mg) 1 tab Q12HR PO 10/07/16 21:00 10/08/16 09:46 (Lotrimin 1% Cream) 1 applic DAILY TOPICAL 10/08/16 09:00 10/08/16 09:47 (Vistaril) 25 mg HS PO 10/07/16 21:00 10/07/16 21:24 (Antivert) 12.5 mg TID PRN PO 10/07/16 16:15 (Glucophage) 500 mg BID PO 10/07/16 21:00 10/08/16 09:46 (Aristocort 0.1% Cream) 1 applic DAILY TOPICAL 10/08/16 09:00 10/08/16 09:00 (D50w (Vial) Inj) 50 ml UNSCH PRN IV 10/07/16 16:15 (Glucagon Inj) 1 mg UNSCH PRN OTHER 10/07/16 16:15 (Pill Splitter) 1 ea UNSCH PRN OTHER 10/07/16 16:45 (Zoloft) 50 mg DAILY PO 10/09/16 09:00 Family History Cancer Depression Social History Patient reports history of smoking cigars but quit 6-7 years ago. Admits to alcohol consumption of one drink q 2 to 3 days. Denies any illicit drug use Physical Exam Vital Signs Vital Signs Date Time Temp Pulse Resp B/P Pulse Ox O2 Delivery O2 Flow Rate FiO2 10/08/16 16:57 97.7 111 18 174/79 98 10/08/16 05:49 97.5 98 16 128/95 98 Physical Exam GENERAL: This is a well-nourished, well-developed patient, in no apparent distress. Awake and alert. SKIN: No rashes, ecchymoses or lesions. Cool and dry. HEAD: Atraumatic. Normocephalic. No temporal or scalp tenderness. EYES: Pupils equal round and reactive. Extraocular motions intact. No scleral icterus. No injection or drainage. ENT: Nose without bleeding, purulent drainage. Throat without erythema, tonsillar hypertrophy or exudate. Uvula midline. Airway patent. NECK: Trachea midline. No lymphadenopathy. Supple, nontender, no meningeal signs. CARDIOVASCULAR: Regular rate and rhythm without murmurs, gallops, or rubs. RESPIRATORY: Clear to auscultation. Breath sounds equal bilaterally. No wheezes , rales, or rhonchi. GASTROINTESTINAL: Abdomen soft, non-tender, nondistended. No hepato-splenomegaly , or palpable masses. No guarding. MUSCULOSKELETAL: Extremities without clubbing, cyanosis, or edema. No joint tenderness, effusion, or edema noted. No calf tenderness. NEUROLOGICAL: Awake and alert. Able to move all extremities. Normal speech. Laboratory Laboratory Tests Test 10/08/16 13:12 Sodium Level 139 Potassium Level 3.0 Chloride Level 103 Carbon Dioxide Level 25.1 Anion Gap 11 Blood Urea Nitrogen 20 Creatinine 1.48 Estimat Glomerular Filtration 47 Rate Random Glucose 115 Calcium Level 9.3 Triglycerides Level 129 Cholesterol Level 163 LDL Cholesterol 96 HDL Cholesterol 41.0 Cholesterol/HDL Ratio 3.97 Result Diagram: 10/08/16 1312 Assessment and Plan Assessment and Plan 66-year-old male with past medical history significant for depression, hypertension, diabetes and dyslipidemia who came in with complaints of dizziness and was found to have low B12 and parkinsonian symptoms. Patient started on Sinemet and B12. Patient voiced thoughts of harming himself and burning down the hospital. Patient now admitted to the psychiatric unit and hospitalist service is consulted for medical management. Adjustment disorder Depression Management per psychiatric team Parkinsonian symptoms B12 deficiency Patient evaluated by neurology and started on Sinemet and B12 supplementation. Continue Hypertension Hyperlipidemia Continue patient's home dose of Lipitor 10 mg by mouth daily Clonidine when necessary with parameters GEOVANY Improving Hold metformin Encourage by mouth fluids A.m. labs to monitor Hypokalemia Mag level 2.0 Repletion ordered by primary team Follow-up with BMP in a.m. to monitor response Diabetes Hold metformin due to GEOVANY Accu-Chek ISS Obtain hemoglobin A1c DVT prophylaxis Patient is ambulatory This note was transcribed by [place], Dr. Josefa Ruelas personally performed the history, physical exam, and medical decision making; and confirmed the accuracy of the information in the transcribed note. Authenticated by Dr. Josefa Ruelas on 10/08/16 at 17:47. Discussed Condition With Patient and nursing staff Jessy Schneider Oct 08, 2016 18:09 Josefa Ruelas MD Oct 08, 2016 18:41
[2016-10-08] MEDS ORDERED: GLUCAGON 1 MG/ML VIAL OTHER PRN (18:15)
[2016-10-08] MEDS ORDERED: cloNIDine HCL 0.1 MG TAB PO PRN (18:15)
[2016-10-08] MEDS ORDERED: DEXTROSE 50% IN WATER 50 ML VIAL(D50) IV PRN (18:15)
[2016-10-08] MEDS: hydrOXYzine PAMOATE 25 MG CAP PO SCH (20:47)
[2016-10-08] MEDS: ATORVASTATIN 10 MG TAB PO SCH (20:47)
[2016-10-08] MEDS: diphenhydrAMINE HCL 50 MG CAP PO PRN (20:48)
[2016-10-09 05:30] VITALS: BP 120/67; PULSE 91; RESP 18; TEMP 98; O2SAT 97
[2016-10-09] MEDS: INSULIN ASPART SUPPLEMENTAL SCALE SQ SCH ×5 (06:15→20:19)
[2016-10-09] MEDS: SERTRALINE HCL 50 MG TAB PO SCH (08:25)
[2016-10-09] MEDS: CARBIDOPA/LEVODOPA 25 MG/100 MG TAB PO SCH ×2 (08:25→20:19)
[2016-10-09] MEDS: TRIAMCINOLONE ACETONIDE 0.1% CREAM 15 GM TOPICAL SCH (08:45)
[2016-10-09] MEDS: CLOTRIMAZOLE 1% CREAM 15 GM TOPICAL SCH (08:45)
[2016-10-09 10:54] LABS: BICARBONATE 24.2 MEQ/L (21.0-32.0); MAGNESIUM 2.1 MG/DL (1.5-2.5); POTASSIUM 3.3 MEQ/L (3.5-5.1)
--- NOTE | 2016-10-09 11:46 | HHI.PYPN ---
Subjective Remarks Patient seen and examined with counselor and nurse. Chart reviewed. Case discussed with nursing staff who has noted significant confusion and difficulty with ADLs in patient. On my exam, patient does seem a little forgetful. However, affect is bright, and he seems much less pre-occupied with events from [place]. He is calm and easy-going with no signs of irritability or agitation. Continues to feel like Sinemet is making him a little groggy but otherwise denies side effects. No physical complaints. Review of Systems Except as stated in HPI: all other systems reviewed are Neg Objective Alert: Yes Row[place]: Person, Place Mood: Calm Affect: Euthymic Memory Intact: Comment (perhaps mildly impaired on clinical exam) Hallucinations: Other (No AVH) Delusions: No Delusion Type: Other (No delusions) Suicidal: Ideation (No SI) Homicidal: Ideation (No HI) Insight/Judgment Poor Remarks No motor abnormalities appreciated. Grooming and hygiene good. Thought process a little slowed but generally linear. Labs Test 10/08/16 10/09/16 13:12 08:54 Sodium Level 139 MEQ/L 138 MEQ/L Potassium Level 3.0 MEQ/L 3.3 MEQ/L Chloride Level 103 MEQ/L 102 MEQ/L Carbon Dioxide Level 25.1 MEQ/L 24.2 MEQ/L Anion Gap 11 MEQ/L 12 MEQ/L Blood Urea Nitrogen 20 MG/DL 21 MG/DL Creatinine 1.48 MG/DL 1.60 MG/DL Estimat Glomerular Filtration 47 ML/MIN 43 ML/MIN Rate Random Glucose 115 MG/DL 133 MG/DL Calcium Level 9.3 MG/DL 9.2 MG/DL Triglycerides Level 129 MG/DL Cholesterol Level 163 MG/DL LDL Cholesterol 96 MG/DL HDL Cholesterol 41.0 MG/DL Cholesterol/HDL Ratio 3.97 RATIO Magnesium Level 2.1 MG/DL Labs reviewed. Vitals/IOs Vital Signs Date Time Temp Pulse Resp B/P Pulse Ox O2 Delivery O2 Flow Rate FiO2 10/09/16 05:30 98.0 91 18 120/67 97 Assessment & Plan Problem List: (1) Adjustment disorder ICD Code: F43.20 Assessment & Plan Continue Zoloft 50mg daily. Replete potassium and check BMP in morning. OT eval. Awaiting neuro consult. Appreciate hospitalist input. Continue other medications and care as ordered. Justification for Cont. Inpt. Monitoring for impairments in safety, none noted. Discharge Planning Pending outcome of observation. Request HC Surrog/Guard Advoc?: No Problem Qualifiers (1) Adjustment disorder: Qualified Code: F43.20 - Adjustment disorder, unspecified type Kranthi Rosado MD Oct 09, 2016 11:45
[2016-10-09 15:37] VITALS: BP 153/91; PULSE 113; RESP 18; TEMP 97.6; O2SAT 96
[2016-10-09] MEDS ORDERED: POTASSIUM CHLORIDE 10 MEQ CONTROLLED RELEASE TAB PO ONE (17:00)
[2016-10-09 17:05] LABS: HEMOGLOBIN A1a 0.9 %; HEMOGLOBIN A1b 1.6 %; HEMOGLOBIN P3 3.9 %
[2016-10-09] MEDS: hydrOXYzine PAMOATE 25 MG CAP PO SCH (20:19)
[2016-10-09] MEDS: ATORVASTATIN 10 MG TAB PO SCH (20:19)
[2016-10-10 06:26] VITALS: BP 126/74; PULSE 89; RESP 16; TEMP 98.1; O2SAT 96
[2016-10-10] MEDS: INSULIN ASPART SUPPLEMENTAL SCALE SQ SCH ×4 (06:34→21:00)
[2016-10-10 08:32] LABS: BICARBONATE 22.2 MEQ/L (21.0-32.0); POTASSIUM 3.7 MEQ/L (3.5-5.1)
[2016-10-10] MEDS: SERTRALINE HCL 50 MG TAB PO SCH (09:54)
[2016-10-10] MEDS: CARBIDOPA/LEVODOPA 25 MG/100 MG TAB PO SCH ×2 (09:54→21:57)
[2016-10-10] MEDS: CLOTRIMAZOLE 1% CREAM 15 GM TOPICAL SCH (09:55)
[2016-10-10] MEDS: TRIAMCINOLONE ACETONIDE 0.1% CREAM 15 GM TOPICAL SCH (09:55)
--- NOTE | 2016-10-10 13:08 | HHI.PYPN ---
Subjective Remarks Patient seen and examined with counselor and nurse. Chart reviewed. Case discussed in treatment team. Per nursing staff, patient remains fairly confused and struggles with some of his ADLs. Awaiting OT eval. On my exam, patient is calm and pleasant. No psychotic symptoms. No SI or HI. No PTSD symptoms reported. Completed MOCA with patient, suggestive of significant cognitive impairment, and we discuss results. No side effects from medications. No physical complaints. MOCA: Visuospatial/Executive: 2/5 Namin3 Attention: 03/10 Language: 2/3 Abstraction: 12 Delayed Recall: 05 Orientation: 06/08 Total: 03/03 Case d/w pt's yesterday evening (RN confirmed NHUNG). I discuss differential diagnosis, patient's progress on the unit, and recommendations for outpatient follow up. She would like to have the patient home once discharged from the unit. I recommend that she secure the home in advance of patient's return there of all potential means of harm to self/others including but not limited to guns, knives, meds, etc. Review of Systems Except as stated in HPI: all other systems reviewed are Neg Objective Alert: Yes [place]: Person, Place Mood: Calm Affect: Appropriate Memory Intact: Comment (See above.) Hallucinations: Other (No hallucinations.) Delusions: No Delusion Type: Other (No delusions) Suicidal: Ideation (No SI) Homicidal: Ideation (No HI) Insight/Judgment Poor Remarks No motoric abnormalities noted. Thought process a little slowed. Grooming and hygiene fair. Labs Test 10/10/16 07:00 Sodium Level 138 MEQ/L Potassium Level 3.7 MEQ/L Chloride Level 105 MEQ/L Carbon Dioxide Level 22.2 MEQ/L Anion Gap 11 MEQ/L Blood Urea Nitrogen 23 MG/DL Creatinine 1.37 MG/DL Estimat Glomerular Filtration 52 ML/MIN Rate Random Glucose 86 MG/DL Calcium Level 9.2 MG/DL Labs reviewed. Vitals/IOs Vital Signs Date Time Temp Pulse Resp B/P Pulse Ox O2 Delivery O2 Flow Rate FiO2 10/10/16 06:26 98.1 89 16 126/74 96 Assessment & Plan Problem List: (1) Adjustment disorder ICD Code: F43.20 (2) Major neurocognitive disorder Assessment & Plan: Suspected ICD Code: F03.90 Assessment & Plan Cognitive screening findings concerning for major neurocognitive disorder. Workup for reversible causes of dementia completed in CDU. Could consider Aricept/Namenda but since these are rarely associated with worsened behavioral disturbance, I think it is best to hold off in the present case. Continue Zoloft as ordered. Awaiting neuro follow up and OT eval. Continue other medications and care as ordered. Justification for Cont. Inpt. Monitoring for impairment in safety. So far none noted. Discharge Planning Pending completion of observation, OT eval. Request HC Surrog/Guard Advoc?: No Problem Qualifiers (1) Adjustment disorder: Qualified Code: F43.20 - Adjustment disorder, unspecified type Kranthi Rosado MD Oct 10, 2016 13:08
[2016-10-10 15:35] VITALS: BP 157/91; PULSE 95; RESP 18; TEMP 97.3; O2SAT 97
--- NOTE | 2016-10-10 17:04 | PD.TTN ---
Present for Treatment Team Treatment Team Staff: Provider (Dr. Rosado), Nurse (Steven), Psych Therapist ( ROSE MARY Elias) Patient Problems 1. Discharge planning 2. Medication compliance 3. Knowledge deficit 4. Lack of coping skills Progress Toward Goals Provider Input: Dr. Rosado requested an update related to patient's progress, medication compliance, behaviors, and plan for discharge. Dr. Rosado administered The [place] Cognitive Assessment to this patient and the results were suggestive of significant cognitive impairment. Nurse Input: Steven reported the patient typically stays in his room and has remained calm. According to Steven, the patient became slightly confused last night and was looking for his phone, but staff was able to redirect the patient. Psych Therapist Input: Counselor reported that I have spoke to patient's , and she will be visiting the patient on the unit this evening. Documentation Scribe: Rsoe Mary Elias Date Resolved: Oct 10, 2016 Wendy Holland Oct 10, 2016 17:04
[2016-10-10] MEDS: ATORVASTATIN 10 MG TAB PO SCH (21:57)
[2016-10-10] MEDS: hydrOXYzine PAMOATE 25 MG CAP PO SCH (21:57)
[2016-10-11] MEDS: INSULIN ASPART SUPPLEMENTAL SCALE SQ SCH ×4 (06:22→20:38)
[2016-10-11 06:29] VITALS: BP 127/70; PULSE 83; RESP 16; TEMP 97.6; O2SAT 98
[2016-10-11] MEDS: CLOTRIMAZOLE 1% CREAM 15 GM TOPICAL SCH (08:37)
[2016-10-11] MEDS: TRIAMCINOLONE ACETONIDE 0.1% CREAM 15 GM TOPICAL SCH (08:37)
[2016-10-11] MEDS: SERTRALINE HCL 50 MG TAB PO SCH (08:37)
[2016-10-11] MEDS: CARBIDOPA/LEVODOPA 25 MG/100 MG TAB PO SCH ×2 (08:37→21:00)
[2016-10-11 09:08] LABS: BICARBONATE 25.3 MEQ/L (21.0-32.0)
[2016-10-11 09:10] LABS: POTASSIUM 3.3 MEQ/L (3.5-5.1)
--- NOTE | 2016-10-11 15:20 | HHI.PYPN ---
Subjective Remarks Patient seen and examined with counselor and nurse. Chart reviewed. Case discussed with nursing staff. No behavioral outbursts noted, but patient is noted to remain confused per nursing staff. On my examination today, patient seems confused about his length of stay in the hospital, believing that he has been here for weeks possibly. Affect is bright and euthymic. He admits that he has had worsening memory impairment for at least a year or two. He admits that being in the unfamiliar environment of the inpatient unit and CDU is difficult as a result of this impairment; he is more comfortable in his home. He notes that he has struggled somewhat more with complex tasks around the home. No SI or HI. No side effects from medications. No physical complaints. Updated patient's over the phone. I expend not insignificant effort to convey my concerns regarding patient's evident cognitive impairment and my concern for possible dementia diagnosis and prognosis. I perceive that is a little passive-aggressive, I cannot discern for what reason she is so. She is quite insistent on putting her son on the phone even though nurse confirms that we do not have NHUNG for son, and I did try to explain this to . Despite my best efforts, a somewhat unsatisfactory consultation. Review of Systems ROS Limitations: Poor Historian Except as stated in HPI: all other systems reviewed are Neg Objective Alert: Yes [place]: Person, Place Mood: Calm Affect: Euthymic Memory Intact: Comment (Impaired on clinical exam) Hallucinations: Other (No AVH) Delusions: No Delusion Type: Other (No delusions noted.) Suicidal: Ideation (No SI) Homicidal: Ideation (No HI) Insight/Judgment Poor Remarks Minimal hand tremor/cogwheeling with Sinemet. TP slowed. Speech wnl rate, tone , volume. Grooming and hygiene fair. Labs Test 10/11/16 06:59 Sodium Level 137 MEQ/L Potassium Level 3.3 MEQ/L Chloride Level 101 MEQ/L Carbon Dioxide Level 25.3 MEQ/L Anion Gap 11 MEQ/L Blood Urea Nitrogen 26 MG/DL Creatinine 1.52 MG/DL Estimat Glomerular Filtration 46 ML/MIN Rate Random Glucose 85 MG/DL Calcium Level 9.1 MG/DL Labs reviewed. K low. Replete. GFR within recent range. Vitals/IOs Vital Signs Date Time Temp Pulse Resp B/P Pulse Ox O2 Delivery O2 Flow Rate FiO2 10/11/16 06:29 97.6 83 16 127/70 98 Assessment & Plan Problem List: (1) Major neurocognitive disorder ICD Code: F03.90 Assessment & Plan With benefit of observation, major neurocognitive disorder seems most likely cause of patient's presenting symptoms. I have asked Dr. Branham to follow up with the patient and make further recommendations. Given parkinsonism, patient may have some degree of subcortical dementia. I have d/w OT, who will complete his assessment of patient today. Continue Zoloft as ordered. Continue other medications and care as ordered. Justification for Cont. Inpt. Risk for decompensation Discharge Planning Pending completion of OT eval and neuro f/u, possible discharge home after that. Request HC Surrog/Guard Advoc?: No Kranthi Rosado MD Oct 11, 2016 15:20
--- NOTE | 2016-10-11 15:21 | HHI.PR ---
Subjective Remarks Follow up for Dizziness/vertigo/ataxia, Diabetes, elevated creatinine. Pt reports poor food intake due to not liking the food at [facility]. Notes walking with walker for support/stability. Sleep is poor, not restful. 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 When asked if he had PTSD he said "I might have a tough of it but I handle it." No other issues noted or reported by pt. Pt denied fever, chills, cough, shortness of breath, NVD, bloody urine or stool. Discussed with RN (Manjit) told her of pt's comments about PTSD. Per RN, no acute issues noted overnight or since start of shift. Objective Vitals Vital Signs Date Time Temp Pulse Resp B/P Pulse Ox O2 Delivery O2 Flow Rate FiO2 10/11/16 06:29 97.6 83 16 127/70 98 10/10/16 15:35 97.3 95 18 157/91 97 Result Diagram: 10/11/16 0659 Objective Remarks GENERAL: Pt encountered in day room and used a walker to ambulate to his room. Pt alert. NAD SKIN: Warm and dry. HEAD: Normocephalic. EYES: No scleral icterus. No injection or drainage. NECK: Supple, trachea midline. No lymphadenopathy. CARDIOVASCULAR: Regular rate and rhythm without murmurs, gallops, or rubs. RESPIRATORY: Breath sounds equal bilaterally. No accessory muscle use. GASTROINTESTINAL: Abdomen soft, non-tender, nondistended. MUSCULOSKELETAL: No cyanosis, or edema. PSYCHIATRIC: Alert and oriented x 3. Pleasant and cooperative. No overt signs of anxiety/depression. Speech clear and fluent. Medications and IVs Current Medications Medications (Trade) Dose Ordered Sig/Alyssa Route Start Time Stop Time Status Last Admin (Ativan) 1 mg Q6H PRN PO 10/07/16 16:15 (Ativan Inj) 1 mg Q6H PRN IM 10/07/16 16:15 (Benadryl) 50 mg HS PRN PO 10/07/16 16:15 10/08/16 20:48 (Tylenol) 650 mg Q4H PRN PO 10/07/16 16:15 (Milk Of Magnesia Liq) 30 ml DAILY PRN PO 10/07/16 16:15 (Mag-Al Plus Susp Liq) 30 ml Q6H PRN PO 10/07/16 16:15 (Cogentin) 1 mg Q12H PRN PO 10/07/16 16:15 (Cogentin Inj) 1 mg Q12H PRN IM 10/07/16 16:15 (Lipitor) 10 mg HS PO 10/07/16 21:00 10/10/16 21:57 (Sinemet 25-100 Mg) 1 tab Q12HR PO 10/07/16 21:00 10/11/16 08:37 (Lotrimin 1% Cream) 1 applic DAILY TOPICAL 10/08/16 09:00 10/11/16 08:37 (Vistaril) 25 mg HS PO 10/07/16 21:00 10/10/16 21:57 (Antivert) 12.5 mg TID PRN PO 10/07/16 16:15 (Aristocort 0.1% Cream) 1 applic DAILY TOPICAL 10/08/16 09:00 10/11/16 08:37 (Pill Splitter) 1 ea UNSCH PRN OTHER 10/07/16 16:45 (Zoloft) 50 mg DAILY PO 10/09/16 09:00 10/11/16 08:37 (Catapres) 0.1 mg Q6H PRN PO 10/08/16 18:15 (D50w (Vial) Inj) 50 ml UNSCH PRN IV 10/08/16 18:15 (Glucagon Inj) 1 mg UNSCH PRN OTHER 10/08/16 18:15 Urinary Catheter: No A/P Assessment and Plan 66-year-old male with past medical history significant for depression, hypertension, diabetes and dyslipidemia who came in with complaints of dizziness and was found to have low B12 and parkinsonian symptoms. Patient started on Sinemet and B12. Patient voiced thoughts of harming himself and burning down the hospital. Patient now admitted to the psychiatric unit and hospitalist service is consulted for medical management. Creatinine increased to 1.52 (from 1.37) in 24 hours. Encourage fluids. Consider nephrology consult.A1c noted to be 5.6. Adjustment disorder Depression Management per psychiatric team Parkinsonian symptoms B12 deficiency -Patient evaluated by neurology and started on Sinemet and B12 supplementation. Continue Hypertension Hyperlipidemia -Continue patient's home dose of Lipitor 10 mg by mouth daily -Clonidine when necessary with parameters GEOVANY -Improving -Hold metformin -Encourage by mouth fluids -creatinine increased from 1.37 to 1.52 Hypokalemia -Mag level 2.0 -Repletion ordered by primary team -Follow-up with BMP in a.m. to monitor response Diabetes -Hold metformin due to GEOVANY -Accu-Chek -ISS -Obtain hemoglobin A1c, 5.6. DVT prophylaxis -Patient is ambulatory Discussed with Pt, RN, and Dr. Ruelas. Discharge Planning Discharge planning ongoing. Nicholas Simental Jr. Oct 11, 2016 15:21
[2016-10-11] MEDS ORDERED: POTASSIUM CHLORIDE 10 MEQ CONTROLLED RELEASE TAB PO ONE (15:30)
--- NOTE | 2016-10-11 16:41 | HHI.PR ---
Review/Management Diagnosis Parkinsonism--response to sinemet is consistent with idiopathic Parkinsons disease Vitamin B12 deficiency Plan continue current dose of sinemet. vitamin B12 supplement 1000 ug IM weekly times 3. When he is discharged, please schedule follow up in my office in 2-3 weeks Diagnosis/Plan: Subjective Subjective Comments Patient reports improvement in balance since starting sinemet. He is tolerating sinemet at this time. Denies light headedness, nausea Active Medications Current Medications Medications (Trade) Dose Ordered Sig/Alyssa Route Start Time Stop Time Status Last Admin (Ativan) 1 mg Q6H PRN PO 10/07/16 16:15 (Ativan Inj) 1 mg Q6H PRN IM 10/07/16 16:15 (Benadryl) 50 mg HS PRN PO 10/07/16 16:15 10/08/16 20:48 (Tylenol) 650 mg Q4H PRN PO 10/07/16 16:15 (Milk Of Magnesia Liq) 30 ml DAILY PRN PO 10/07/16 16:15 (Mag-Al Plus Susp Liq) 30 ml Q6H PRN PO 10/07/16 16:15 (Cogentin) 1 mg Q12H PRN PO 10/07/16 16:15 (Cogentin Inj) 1 mg Q12H PRN IM 10/07/16 16:15 (Lipitor) 10 mg HS PO 10/07/16 21:00 10/10/16 21:57 (Sinemet 25-100 Mg) 1 tab Q12HR PO 10/07/16 21:00 10/11/16 08:37 (Lotrimin 1% Cream) 1 applic DAILY TOPICAL 10/08/16 09:00 10/11/16 08:37 (Vistaril) 25 mg HS PO 10/07/16 21:00 10/10/16 21:57 (Antivert) 12.5 mg TID PRN PO 10/07/16 16:15 (Aristocort 0.1% Cream) 1 applic DAILY TOPICAL 10/08/16 09:00 10/11/16 08:37 (Pill Splitter) 1 ea UNSCH PRN OTHER 10/07/16 16:45 (Zoloft) 50 mg DAILY PO 10/09/16 09:00 10/11/16 08:37 (Catapres) 0.1 mg Q6H PRN PO 10/08/16 18:15 (D50w (Vial) Inj) 50 ml UNSCH PRN IV 10/08/16 18:15 (Glucagon Inj) 1 mg UNSCH PRN OTHER 10/08/16 18:15 Allergies Allergies Coded Allergies Penicillin (Verified Allergy, Severe, 10/06/16) Exam I&O / VS Vital Signs Date Time Temp Pulse Resp B/P Pulse Ox O2 Delivery O2 Flow Rate FiO2 10/11/16 06:29 97.6 83 16 127/70 98 Exam Comments alert, oriented, speech fluent CN--diminished facial expression. PERRL, extra occular motility normal MOTOR--mild bradykinesia. 5/5 strength BUE and BLE. Mild cogwheel rigidity BUE Objective Micro and Labs Laboratory Tests Test 10/11/16 06:59 Sodium Level 137 Potassium Level 3.3 Chloride Level 101 Carbon Dioxide Level 25.3 Anion Gap 11 Blood Urea Nitrogen 26 Creatinine 1.52 Estimat Glomerular Filtration 46 Rate Random Glucose 85 Calcium Level 9.1 Miguelito Branham PhD MD Oct 11, 2016 16:41
[2016-10-11 17:26] VITALS: BP 137/86; PULSE 90; RESP 17; TEMP 97.3; O2SAT 99
[2016-10-11] MEDS: ATORVASTATIN 10 MG TAB PO SCH (21:00)
[2016-10-11] MEDS: hydrOXYzine PAMOATE 25 MG CAP PO SCH (21:00)
[2016-10-11] MEDS: LORazepam 1 MG TAB PO PRN (21:00)
[2016-10-11] MEDS: ACETAMINOPHEN 325 MG TAB PO PRN (21:00)
[2016-10-12 05:33] VITALS: BP 127/81; PULSE 87; RESP 16; TEMP 97.9; O2SAT 97
[2016-10-12] MEDS: INSULIN ASPART SUPPLEMENTAL SCALE SQ SCH ×4 (06:39→20:10)
[2016-10-12] MEDS ORDERED: POTASSIUM CHLORIDE 10 MEQ CONTROLLED RELEASE TAB PO ONE (08:00)
[2016-10-12] MEDS: CARBIDOPA/LEVODOPA 25 MG/100 MG TAB PO SCH ×2 (08:49→20:49)
[2016-10-12] MEDS: SERTRALINE HCL 50 MG TAB PO SCH (08:49)
[2016-10-12] MEDS: TRIAMCINOLONE ACETONIDE 0.1% CREAM 15 GM TOPICAL SCH (08:54)
[2016-10-12] MEDS: CLOTRIMAZOLE 1% CREAM 15 GM TOPICAL SCH (08:54)
[2016-10-12 09:06] LABS: BICARBONATE 24.7 MEQ/L (21.0-32.0)
--- NOTE | 2016-10-12 11:43 | HHI.PYPN ---
Subjective Remarks Patient seen and examined with counselor. Chart reviewed. Case discussed with nursing staff. No behavioral issues noted overnight. Patient remains confused. He was sitting for a time in an unoccupied room, thinking in error that it was his own room. On my exam, patient reports mood is improved versus admission. Affect is bright and euthymic. Denies SI/HI. Denies AVH. Sleeping and eating well. Hoping to go home soon. No side effects from meds. Spoke with patient's . She is now ambivalent about accepting patient home. Says that he was hallucinating last night during visitation, seeing figures that were not there. Patient has not been noted to hallucinate by staff ( although interestingly, patient told staff son was getting him a new car and one of the figures family said he hallucinated was a car). wants guarantees about patient's behavior if discharged home, and I explain that patient's with cognitive are by nature somewhat unpredictable and I cannot provide these guarantees. The patient has been no behavioral problem in the structure of the unit. I have asked counselor to speak with and son about there options re: placement. Also spoke with Dr. Branham. He was pleased with patient's progress with the Sinemet. He would like to follow up with patient in the clinic in a few weeks. If patient remains in house, Dr. Branham will follow up at intervals, perhaps sometime next week. I saw that he was considering LP for 14-3-3 and other tests , but Dr. Branham tells me he does not think LP is presently essential, and he notes patient was declining LP at initial consultation anyway. Review of Systems ROS Limitations: Poor Historian Except as stated in HPI: all other systems reviewed are Neg Objective Alert: Yes [place]: Person, Place ([place], [place]), Date (Oct, 2016) Mood: Calm Affect: Euthymic Memory Intact: Comment (Remains impaired) Hallucinations: Other (No AVH) Delusions: No Delusion Type: Other (No delusions) Suicidal: Ideation (No SI) Homicidal: Ideation (No HI) Insight/Judgment Poor Remarks Minimal hand tremor. No other motor abnormalities noted. Bradyphrenia noted. Grooming and hygiene fair. Labs Test 10/12/16 07:34 Sodium Level 138 MEQ/L Potassium Level 4.0 MEQ/L Chloride Level 102 MEQ/L Carbon Dioxide Level 24.7 MEQ/L Anion Gap 11 MEQ/L Blood Urea Nitrogen 31 MG/DL Creatinine 1.59 MG/DL Estimat Glomerular Filtration 44 ML/MIN Rate Random Glucose 121 MG/DL Calcium Level 9.3 MG/DL Labs reviewed. Vitals/IOs Vital Signs Date Time Temp Pulse Resp B/P Pulse Ox O2 Delivery O2 Flow Rate FiO2 10/12/16 05:33 97.9 87 16 127/81 97 Intake and Output 10/11/16 10/11/16 10/11/16 07:59 15:59 23:59 Intake Total 360 ml Balance 360 ml Assessment & Plan Problem List: (1) Major neurocognitive disorder Assessment & Plan: ?DLB versus Parkinson's Disease Dementia versus MORIS versus other dementia ICD Code: F03.90 Assessment & Plan Add Seroquel 12.5mg qHS for possible hallucinations. I have chosen Seroquel as it is among the least anti-dopaminergic antipsychotic given the patient's parkinsonism. Continue Zoloft as ordered. Appreciate program evaluation consultant input. RAVI jeter reviewed and appreciated, and I did speak with the occupational therapist about the case yesterday evening. Counselor to speak with patient's family regarding their wishes about placement. Continue other medications and care as ordered. Justification for Cont. Inpt. Medication changes. Discharge Planning To be determined. Home with family and HHC vs. placement. Request HC Surrog/Guard Advoc?: No Kranthi Rosado MD Oct 12, 2016 11:43
--- NOTE | 2016-10-12 14:02 | RADRPT ---
EXAM DATE/TIME: 10/12/2016 12:44 [facility] COMPARISON: No previous studies available for comparison. INDICATIONS : Increased BUN and creatnine. MEDICAL HISTORY : Hypercholesterolemia. Gastroesophageal reflux disease. Osteoarthritis. Umbilical hernia. Diabetes. Ki dney stone. SURGICAL HISTORY : Tonsillectomy. ENCOUNTER: Initial ACUITY: 1 day PAIN SCORE: 0/10 LOCATION: Bilateral flank MEASUREMENTS: RIGHT KIDNEY: 11.1 x 5.4 x 4.4 cm LEFT KIDNEY: 11.8 x 4.0 x 5.0 cm FINDINGS: RIGHT KIDNEY: Renal cortex is normal in thickness and echotexture. No hydronephrosis, stone, or mass. There is a cyst along the upper pole measuring 2.5 cm. LEFT KIDNEY: Renal cortex is normal in thickness and echotexture. No hydronephrosis, stone, or mass. BLADDER: Within normal limits given the degree of distension. CONCLUSION: 1. No evidence of hydronephrosis. 2. Benign right renal cyst measuring 2.5 cm. Trey Bang MD on October 12, 2016 at 14:00 Board Certified Radiologist. This report was verified electronically.
--- NOTE | 2016-10-12 15:10 | HHI.PR ---
Subjective Remarks In bed. Says he still feels depressed. says she is not able to eat much and also did not drink water. Encourage PO intake. No n/v/d/c. No fever ro chills. No lightheadedness. Objective Vitals Vital Signs Date Time Temp Pulse Resp B/P Pulse Ox O2 Delivery O2 Flow Rate FiO2 10/12/16 05:33 97.9 87 16 127/81 97 10/11/16 17:26 97.3 90 17 137/86 99 I/O 10/11/16 10/11/16 10/11/16 10/12/16 10/12/16 10/12/16 07:00 15:00 23:00 07:00 15:00 23:00 Intake Total 360 ml Balance 360 ml Intake Oral 360 ml Result Diagram: 10/12/16 0734 Imaging Last Impressions Renal Ultrasound 10/12/16 0000 Signed Impressions: Service Date/Time: October 12:44 - CONCLUSION: 1. No evidence of hydronephrosis. 2. Benign right renal cyst measuring 2.5 cm. Trey Bang MD Objective Remarks GENERAL: Pt encountered in day room and used a walker to ambulate to his room. Pt alert. NAD CARDIOVASCULAR: Regular rate and rhythm without murmurs, gallops, or rubs. RESPIRATORY: Breath sounds equal bilaterally. No accessory muscle use. GASTROINTESTINAL: Abdomen soft, non-tender, nondistended. MUSCULOSKELETAL: No cyanosis, or edema. PSYCHIATRIC: Alert and oriented x 3. Pleasant and cooperative. No overt signs of anxiety/depression. Speech clear and fluent. A/P Assessment and Plan 66-year-old male with past medical history significant for depression, hypertension, diabetes and dyslipidemia who came in with complaints of dizziness and was found to have low B12 and parkinsonian symptoms. Patient started on Sinemet and B12. Patient voiced thoughts of harming himself and burning down the hospital. Patient now admitted to the psychiatric unit and hospitalist service is consulted for medical management. Creatinine increased to 1.52 (from 1.37) in 24 hours. Encourage fluids. Consider nephrology consult.A1c noted to be 5.6. Adjustment disorder Depression Management per psychiatric team Parkinsonian symptoms B12 deficiency Patient evaluated by neurology and started on Sinemet and B12 supplementation. Continue Hypertension Hyperlipidemia Continue patient's home dose of Lipitor 10 mg by mouth daily Clonidine when necessary with parameters GEOVANY- Worsening . Unknown kidney indices baseline. Hold metformin Encourage by mouth fluids Creatinine trending up Patient is telling me he has decreased PO intake as he is depressed. Will give 1L NS and also start IVF US kidney reviewed cyct noted Will also ask nephrology on consult Hypokalemia Mag level 2.0 Monitor and replace as indicated Follow-up with BMP in a.m. to monitor response Diabetes mellitus controlled Hold metformin due to GEOVANY Accu-Chek ISS Hemoglobin A1c, 5.6. DVT prophylaxis -Patient is ambulatory Discussed with patient, nurse Discharge Planning Discharge planning per psych. Not cleared for dc by medical team , will follow Josefa Ruelas MD Oct 12, 2016 15:10
[2016-10-12] MEDS: SODIUM CHLOR 0.9% 1000 ML INJ 1,000 ML IV SCH ×2 (15:15→23:14)
[2016-10-12] MEDS ORDERED: SODIUM CHLOR 0.9% 1000 ML INJ 1,000 ML IV ONE (15:15)
[2016-10-12 18:09] VITALS: BP 141/65; PULSE 84; RESP 18; TEMP 97.1; O2SAT 99
--- NOTE | 2016-10-12 19:58 | MB ---
cc: WENDY WAY MD DATE OF CONSULTATION 10/12/16 REASON FOR CONSULTATION Elevated BUN and creatinine for evaluation. HISTORY OF PRESENT ILLNESS This is a 66-year-old male with past medical history of depression and psychosis, hypertension, diabetes mellitus, hyperlipidemia, chronic kidney disease, was admitted to the psych department because of worsening psychosis. I was called to see the patient for elevated BUN and creatinine. The patient denies any known history of renal disease. We do not have any previous labs for him except the first creatinine we have on September 29 was 1.7 and it has improved to 1.3 and now it is 1.5. The patient admits that he has not been eating very well. He does not have any nausea or vomiting. There is no history of diarrhea. He denies any dysuria, hematuria or difficulty passing urine. The patient was transferred to the main hospital from the psych unit to give him some IV fluid. He had MRI of the brain done and also he had ultrasound of the kidneys done. The patient denies any dysuria, hematuria or difficulty passing urine. He did not notice any decrease in the urine output. The patient was also diagnosed with Parkinson's disease and neurology has been following him. PAST MEDICAL HISTORY Hypertension, diabetes mellitus, possible chronic kidney disease, hyperlipidemia, depression and psychosis. PAST SURGICAL HISTORY Umbilical hernia repair. REVIEW OF SYSTEMS Denies any headache, dizziness or blurring of vision. No shortness of breath. No chest pain. No palpitation. No nausea, vomiting. He decreased appetite, not eating well. Occasionally has nausea. There is no vomiting. No abdominal pain or diarrhea. No dysuria, hematuria. SOCIAL HISTORY The patient is . He has a history of smoking cigars but quit 6-7 years ago. Occasionally drinks alcoholic beverages. FAMILY HISTORY Noncontributory. ALLERGIES HE HAS ALLERGY TO PENICILLIN. MEDICATIONS Currently on: 1. IV fluid normal saline at 125 an hour. 2. Zoloft 50 milligrams once a day. 3. Lipitor 10 milligrams q. h.s. 4. Vistaril 25 milligrams q. h.s. 5. Seroquel 12.5 milligrams q. h.s. 6. Sinemet 1 tablet q. 12-hours. 7. Ativan p.r.n. 8. Tylenol p.r.n. PHYSICAL EXAMINATION GENERAL: The patient is awake, alert. He is not in acute distress. VITAL SIGNS: Last blood pressure 141/65, temperature 97.1, oxygen saturation 97-99% on room air. There is no documented hypotensive episode during this admission. HEENT: Pupils equally reacting to light. Nonicteric sclera, conjunctiva normal. NECK: Supple. JVD is not elevated. LUNGS: The patient has bilateral good air entry. No wheezing. HEART: S1-S2. Regular rhythm. ABDOMEN: Soft, lax. There is no tenderness. Bowel sounds positive. EXTREMITIES: There is no pedal edema. INVESTIGATION WBC count is 6.9, hemoglobin 15.1, platelet count 148, sodium 138, potassium 4.0, chloride 102, bicarb 24.7, BUN 31, creatinine 1.59, calcium 9.3. Urinalysis showing that he has protein of 30, INR is 1.0. IMAGING STUDIES Ultrasound of the kidney was done which showed both kidneys are normal in size and there is no hydronephrosis. There is benign right renal cyst 2.5 cm in size. MRI of the brain was done and it shows that he has a negative MRI without contrast. MRA of the head was done and it shows that he has no intracranial vascular abnormality. ASSESSMENT/PLAN 1. Possible chronic kidney disease with some acute worsening. 2. Psychosis and depression. 3. Parkinsonism. 4. Hypertension. 5. History of diabetes mellitus. The patient has underlying possible chronic kidney disease. We do not have any baseline creatinine here but he was admitted with abnormal creatinine and has some proteinuria, maybe there is some acute worsening over chronic disease because of dehydration. I agree with continuing IV fluid and avoid giving any nephrotoxins. Follow the BUN and creatinine. Thank you for the consultation and I will follow the patient while he is in the hospital. MD JOSE Kern/NIKKI /7:11 PM /7:37 PM
[2016-10-12] MEDS: QUEtiapine FUMARATE 25 MG TAB PO SCH (20:49)
[2016-10-12] MEDS: hydrOXYzine PAMOATE 25 MG CAP PO SCH (20:49)
[2016-10-12] MEDS: ATORVASTATIN 10 MG TAB PO SCH (20:49)
[2016-10-13] MEDS: SODIUM CHLOR 0.9% 1000 ML INJ 1,000 ML IV SCH ×3 (04:28→23:15)
[2016-10-13 06:25] VITALS: BP 124/71; PULSE 76; RESP 18; TEMP 99.1; O2SAT 98
[2016-10-13] MEDS: INSULIN ASPART SUPPLEMENTAL SCALE SQ SCH ×4 (06:36→21:00)
[2016-10-13] MEDS: CLOTRIMAZOLE 1% CREAM 15 GM TOPICAL SCH (09:00)
[2016-10-13] MEDS: CARBIDOPA/LEVODOPA 25 MG/100 MG TAB PO SCH ×2 (09:10→21:00)
[2016-10-13] MEDS: TRIAMCINOLONE ACETONIDE 0.1% CREAM 15 GM TOPICAL SCH (09:10)
[2016-10-13] MEDS: SERTRALINE HCL 50 MG TAB PO SCH (09:10)
[2016-10-13 10:33] LABS: AUTOMATED NEUTROPHIL # 3.6 TH/MM3 (1.8-7.7); BASOPHIL # 0.1 TH/MM3 (0-0.2); BASOPHIL % 1.1 % (0.0-2.0); EOSINOPHIL # 0.4 TH/MM3 (0-0.4); EOSINOPHIL % 6.8 % (0.0-4.0); HEMO FLAGS DIFF FINAL; LYMPH % 16.5 % (9.0-44.0); LYMPHOCYTE # 0.9 TH/MM3 (1.0-4.8); MEAN CELL VOLUME 88.4 FL (80.0-100.0); MEAN CORPUSCULAR HEMOGLOBIN 30.4 PG (27.0-34.0); MEAN CORPUSCULAR HGB CONC 34.4 % (32.0-36.0); MONO % 9.2 % (0.0-8.0); NEUT % 66.4 % (16.0-70.0); PLATELET COUNT 118 TH/MM3 (150-450); RED BLOOD COUNT 4.42 MIL/MM3 (4.50-5.90); RED CELL DISTRIBUTION WIDTH 13.1 % (11.6-17.2); WHITE BLOOD COUNT 5.4 TH/MM3 (4.0-11.0)
[2016-10-13 11:25] LABS: BICARBONATE 28.2 MEQ/L (21.0-32.0); POTASSIUM 3.7 MEQ/L (3.5-5.1)
--- NOTE | 2016-10-13 12:06 | HHI.PR ---
Subjective Remarks In bed. Says she is not eating much however better than yesterday. No urinary complaints. No n/v/d/c. Denies chest pain or sob. Feels tired. Objective Vitals Vital Signs Date Time Temp Pulse Resp B/P Pulse Ox O2 Delivery O2 Flow Rate FiO2 10/13/16 06:25 99.1 76 18 124/71 98 10/12/16 18:09 97.1 84 18 141/65 99 I/O 10/12/16 10/12/16 10/12/16 10/13/16 10/13/16 10/13/16 07:00 15:00 23:00 07:00 15:00 23:00 Intake Total 90 ml 1616 ml 240 ml Balance 90 ml 1616 ml 240 ml Intake Oral 330 ml 240 ml IV Total 90 ml 1286 ml Result Diagram: 10/13/16 1012 10/13/16 1012 Imaging Last Impressions Renal Ultrasound 10/12/16 0000 Signed Impressions: Service Date/Time: October 12:44 - CONCLUSION: 1. No evidence of hydronephrosis. 2. Benign right renal cyst measuring 2.5 cm. Trey Bang MD Objective Remarks GENERAL: Pt encountered in day room and used a walker to ambulate to his room. Pt alert. NAD CARDIOVASCULAR: Regular rate and rhythm without murmurs, gallops, or rubs. RESPIRATORY: Breath sounds equal bilaterally. No accessory muscle use. GASTROINTESTINAL: Abdomen soft, non-tender, nondistended. MUSCULOSKELETAL: No cyanosis, or edema. PSYCHIATRIC: Alert and oriented x 3. Pleasant and cooperative. No overt signs of anxiety/depression. Speech clear and fluent. A/P Assessment and Plan 66-year-old male with past medical history significant for depression, hypertension, diabetes and dyslipidemia who came in with complaints of dizziness and was found to have low B12 and parkinsonian symptoms. Patient started on Sinemet and B12. Patient voiced thoughts of harming himself and burning down the hospital. Patient now admitted to the psychiatric unit and hospitalist service is consulted for medical management. GEOVANY on likely CKD. Kidney indices improved with IVF. Unknown kidney indices baseline. Creatinine increased to 1.52 (from 1.37) 10/12/16. Encourage fluids. Consider nephrology consult.A1c noted to be 5.6. Hold metformin Encourage by mouth fluids Patient is telling me he has decreased PO intake as he is depressed. Received 1L NS, continue IVF, encourage PO hydration. US kidney reviewed benign right renal cyst noted Nephrology on consult Avoid nephrotoxins. Adjustment disorder Depression Management per psychiatric team Parkinsonian symptoms B12 deficiency Patient evaluated by neurology and started on Sinemet and B12 supplementation. Continue Hypertension Hyperlipidemia Continue patient's home dose of Lipitor 10 mg by mouth daily Clonidine when necessary with parameters Hypokalemia Mag level 2.0 Monitor and replace as indicated Follow-up with BMP in a.m. to monitor response Diabetes mellitus controlled Hold metformin due to GEOVANY Accu-Chek ISS Hemoglobin A1c, 5.6. DVT prophylaxis -Patient is ambulatory Discussed with patient, nurse Discharge Planning Discharge planning per psych. Kidney function improving. Josefa Ruelas MD Oct 13, 2016 12:06
--- NOTE | 2016-10-13 16:25 | HHI.NPPN ---
Subjective Renal Failure: Chronic, Acute, Stage III History of Present Illness 66-year-old male with past medical history of depression and psychosis, hypertension, diabetes mellitus, hyperlipidemia, chronic kidney disease, was admitted to the psych department because of worsening psychosis. I was called to see the patient for elevated BUN and creatinine. The patient denies any known history of renal disease. We do not have any previous labs for him except the first creatinine we have on September 29 was 1.7 and it has improved to 1.3. Additional Remarks Patient is alert, no SOB, not in distress. Objective Data Data 10/12/16 10/13/16 18:59 06:59 Intake Total 1706 ml Balance 1706 ml Intake Oral 330 ml IV Total 1376 ml Vital Signs Date Time Temp Pulse Resp B/P Pulse Ox O2 Delivery O2 Flow Rate FiO2 10/13/16 06:25 99.1 76 18 124/71 98 10/12/16 18:09 97.1 84 18 141/65 99 -: 10/13/16 1012 10/13/16 1012 Physical Exam General Appearance: No Acute Distress, Comfortable Eyes Eye Exam: Pupils Equal Pulmonary Resp Exam: Clear Bilaterally, Breath Sounds Equal, No Distress Cardiology CV Exam: Regular, Normal Sinus Rhythm Gastrointestinal/Abdomen GI Exam: Soft, Non-Tender, Bowel Sounds Present Extremeties Extremities Exam: No Edema Neurologic Neuro Exam: Alert, Awake Assessment/Plan Assessment Summary: GEOVANY/Acute Renal Failure, CKD Stage III Problem List: (1) Depression (2) Adjustment disorder (3) Major neurocognitive disorder (4) GEOVANY (acute kidney injury) Plan Patient has improvement in the Creatinine , now 1.3. BP is stable. He is removing IV Cannula. Need to continue IVF. Has an element of pre renal. Avoid Nephrotoxins, follow the urine out put and BMP. Problem Qualifiers (1) Adjustment disorder: Qualified Code: F43.20 - Adjustment disorder, unspecified type Madhuri Lott MD Oct 13, 2016 16:25
--- NOTE | 2016-10-13 17:50 | HHI.PYPN ---
Subjective Remarks Patient is a 66 y/o man, , domiciled with , connected to ID services, no formal past psychiatric history, no prior psychiatric hospitalizations, no prior SA or mental health services, past medical history of diabetes, was brought into the hospital for initial complaints of dizziness from the ID clinic and as per prior notes patients family had safety concerns of self-harm and harm to others which patient has stated to the family about shooting himself in the head and burning down the hospital which patient denied but was admitted to the inpatient psychiatric unit under [employer] act for safety and reported psychotic symptoms family which stated inpatient admission for stabilization. Patient was started on sertraline 50 mg daily, quetiapine 12.5 mg at bedtime for hallucinations, had consult with neurology for parkinsonian symptoms which patient was started on Sinemet. [facility] was contacted patient was found to have major cognitive impairment (Total: 03/03). Due to current unsafe discharge despite patient requests, patient had been petition for involuntary hospitalization. Patient was transferred to the medpsych unit for IV fluid further observation and management. Patient found lying in hospital bed, noted to be minimally cooperative in interview. Patient states that he had come to the hospital for lightheadedness and dizziness. He states that he does not recall events that led to his hospitalizations lately had been feeling sad and depressed for a while. He states that he had previous service and has suffered some trauma which she continues to have nightmares, but no flashbacks. Patient reports that he had been having suicidal ideations since a year ago and have been worsening lately. Denies any previous suicide attempts. Patient at this time is alert to person place and date. Patient reports he has been having auditory hallucinations for the past month lasting all day last time being yesterday which they have been command type but was not able to elaborate but denied commands to kill self or others. He also reports endorsing visual hallucinations and started months ago but again was not able to elaborate. Patient denies any paranoid ideations. Patient this time reports feeling good , was unable to report whether he was having perceptual disturbances at time of interview this patient did not answer when asked. Review of Systems ROS Limitations: Poor Historian Except as stated in HPI: all other systems reviewed are Neg Objective Alert: Yes [place]: Person, Place ([place], [place]), Date (Oct, 2016) Mood: Other ("good") Affect: Flat Memory Intact: Comment (Remains impaired) Hallucinations: Other (unclear at time of interview with having perceptual disturbances this patient did not elaborate) Delusions: No Delusion Type: Other (No delusions) Suicidal: Ideation (endorsing suicidal ideations.) Homicidal: Ideation (No HI) Insight/Judgment Poor insight, fair impulse control and poor judgment Remarks Patient appears stated age, found in hospital [facility], lying on hospital bed, especially cooperative in interview. Speech slow rate, low tone, language fluent and nonspontaneous Labs Test 10/13/16 10:12 White Blood Count 5.4 TH/MM3 Red Blood Count 4.42 MIL/MM3 Hemoglobin 13.4 GM/DL Hematocrit 39.0 % Mean Corpuscular Volume 88.4 FL Mean Corpuscular Hemoglobin 30.4 PG Mean Corpuscular Hemoglobin 34.4 % Concent Red Cell Distribution Width 13.1 % Platelet Count 118 TH/MM3 Mean Platelet Volume 8.6 FL Neutrophils (%) (Auto) 66.4 % Lymphocytes (%) (Auto) 16.5 % Monocytes (%) (Auto) 9.2 % Eosinophils (%) (Auto) 6.8 % Basophils (%) (Auto) 1.1 % Neutrophils # (Auto) 3.6 TH/MM3 Lymphocytes # (Auto) 0.9 TH/MM3 Monocytes # (Auto) 0.5 TH/MM3 Eosinophils # (Auto) 0.4 TH/MM3 Basophils # (Auto) 0.1 TH/MM3 CBC Comment DIFF FINAL Differential Comment Sodium Level 142 MEQ/L Potassium Level 3.7 MEQ/L Chloride Level 107 MEQ/L Carbon Dioxide Level 28.2 MEQ/L Anion Gap 7 MEQ/L Blood Urea Nitrogen 20 MG/DL Creatinine 1.34 MG/DL Estimat Glomerular Filtration 53 ML/MIN Rate Random Glucose 104 MG/DL Calcium Level 8.6 MG/DL Magnesium Level 2.0 MG/DL Vitals/IOs Vital Signs Date Time Temp Pulse Resp B/P Pulse Ox O2 Delivery O2 Flow Rate FiO2 10/13/16 06:25 99.1 76 18 124/71 98 Intake and Output 10/12/16 10/12/16 10/12/16 07:59 15:59 23:59 Intake Total 420 ml Balance 420 ml Assessment & Plan Problem List: (1) Major neurocognitive disorder ICD Code: F03.90 Assessment & Plan Estimated LOS: 5-7 days. Patient at this time endorsing depressive symptoms along with suicidal ideations and perceptual disturbances which patient will continue to require involuntary admission for stabilization. I have seen and examined this patient also reviewed documentation. Based on my independent findings I completely agree concur with Dr. Silva assessment and plan. Patient to continue current treatment, positive her medication response and adverse drug reactions. Patient to be on one-to-one observation for safety. Discharge planning in progress Justification for Cont. Inpt. Patient at risk for decompensation if at lower level of care Discharge Planning In progress Request HC Surrog/Guard Advoc?: No Abdon Mario MD Oct 13, 2016 17:50
[2016-10-13 18:20] VITALS: BP 149/69; PULSE 86; RESP 18; TEMP 98.8; O2SAT 96
[2016-10-13 19:28] LABS: C. DIFF EPI 027 PRESUMPTIVE NEGATIVE (NEGATIVE)
[2016-10-13] MEDS: LACTOBACILLUS ACIDOPHILUS TAB PO SCH (21:00)
[2016-10-13] MEDS: QUEtiapine FUMARATE 25 MG TAB PO SCH (21:00)
[2016-10-13] MEDS: ATORVASTATIN 10 MG TAB PO SCH (21:00)
[2016-10-13] MEDS: hydrOXYzine PAMOATE 25 MG CAP PO SCH (21:00)
[2016-10-13] MEDS: LORazepam 1 MG TAB PO PRN (21:10)
[2016-10-13] MEDS: diphenhydrAMINE HCL 50 MG CAP PO PRN (21:10)
[2016-10-14] MEDS: SODIUM CHLOR 0.9% 1000 ML INJ 1,000 ML IV SCH ×3 (04:46→22:49)
[2016-10-14 05:00] VITALS: BP 147/79; PULSE 82; RESP 18; TEMP 97.7; O2SAT 97
[2016-10-14] MEDS: INSULIN ASPART SUPPLEMENTAL SCALE SQ SCH ×4 (05:48→21:00)
[2016-10-14 08:43] LABS: AUTOMATED NEUTROPHIL # 3.9 TH/MM3 (1.8-7.7); BASOPHIL # 0.1 TH/MM3 (0-0.2); BASOPHIL % 0.8 % (0.0-2.0); EOSINOPHIL # 0.4 TH/MM3 (0-0.4); EOSINOPHIL % 6.6 % (0.0-4.0); HEMATOCRIT 37.3 % (39.0-51.0); HEMO FLAGS DIFF FINAL; LYMPH % 18.8 % (9.0-44.0); LYMPHOCYTE # 1.2 TH/MM3 (1.0-4.8); MEAN CORPUSCULAR HEMOGLOBIN 30.8 PG (27.0-34.0); MEAN CORPUSCULAR HGB CONC 35.5 % (32.0-36.0); MONO % 10.1 % (0.0-8.0); NEUT % 63.7 % (16.0-70.0); PLATELET COUNT 111 TH/MM3 (150-450); RED BLOOD COUNT 4.29 MIL/MM3 (4.50-5.90); RED CELL DISTRIBUTION WIDTH 13.4 % (11.6-17.2); WHITE BLOOD COUNT 6.1 TH/MM3 (4.0-11.0)
[2016-10-14] MEDS: CLOTRIMAZOLE 1% CREAM 15 GM TOPICAL SCH (09:00)
[2016-10-14] MEDS: LACTOBACILLUS ACIDOPHILUS TAB PO SCH ×2 (09:00→21:33)
[2016-10-14] MEDS: CARBIDOPA/LEVODOPA 25 MG/100 MG TAB PO SCH ×2 (09:00→21:34)
[2016-10-14] MEDS: TRIAMCINOLONE ACETONIDE 0.1% CREAM 15 GM TOPICAL SCH (09:00)
[2016-10-14] MEDS: SERTRALINE HCL 50 MG TAB PO SCH (09:00)
[2016-10-14 09:01] LABS: BICARBONATE 26.4 MEQ/L (21.0-32.0); POTASSIUM 3.3 MEQ/L (3.5-5.1)
--- NOTE | 2016-10-14 10:17 | HHI.PR ---
Subjective Remarks Says he is eating better. [id number] K is low. No n/v/d/c. Denies chest pain or sob. No fever or chills. Objective Vitals Vital Signs Date Time Temp Pulse Resp B/P Pulse Ox O2 Delivery O2 Flow Rate FiO2 10/14/16 05:00 97.7 82 18 147/79 97 10/13/16 18:20 98.8 86 18 149/69 96 I/O 10/13/16 10/13/16 10/13/16 10/14/16 10/14/16 10/14/16 06:59 14:59 22:59 06:59 14:59 22:59 Intake Total 1616 ml 1440 ml 960 ml 2617 ml 240 ml Balance 1616 ml 1440 ml 960 ml 2617 ml 240 ml Intake Oral 330 ml 1440 ml 960 ml 240 ml IV Total 1286 ml 2617 ml # Voids 2 # Bowel Movements 0 Result Diagram: 10/14/16 0816 10/14/16 0816 Imaging Last Impressions Renal Ultrasound 10/12/16 0000 Signed Impressions: Service Date/Time: October 12:44 - CONCLUSION: 1. No evidence of hydronephrosis. 2. Benign right renal cyst measuring 2.5 cm. Trey Bang MD Objective Remarks GENERAL: Pt encountered in day room and used a walker to ambulate to his room. Pt alert. NAD CARDIOVASCULAR: Regular rate and rhythm without murmurs, gallops, or rubs. RESPIRATORY: Breath sounds equal bilaterally. No accessory muscle use. GASTROINTESTINAL: Abdomen soft, non-tender, nondistended. MUSCULOSKELETAL: No cyanosis, or edema. PSYCHIATRIC: Alert and oriented x 3. Pleasant and cooperative. No overt signs of anxiety/depression. Speech clear and fluent. A/P Assessment and Plan 66-year-old male with past medical history significant for depression, hypertension, diabetes and dyslipidemia who came in with complaints of dizziness and was found to have low B12 and parkinsonian symptoms. Patient started on Sinemet and B12. Patient voiced thoughts of harming himself and burning down the hospital. Patient now admitted to the psychiatric unit and hospitalist service is consulted for medical management. GEOVANY on likely CKD. Kidney indices improved with IVF. Unknown kidney indices baseline. Creatinine increased to 1.52 (from 1.37) 10/12/16. Encourage fluids. Consider nephrology consult.A1c noted to be 5.6. Hold metformin Encourage by mouth fluids Patient is telling me he has decreased PO intake as he is depressed. Received 1L NS, continue IVF, encourage PO hydration. US kidney reviewed benign right renal cyst noted Nephrology on consult Avoid nephrotoxins. Adjustment disorder Depression Management per psychiatric team Parkinsonian symptoms B12 deficiency Patient evaluated by neurology and started on Sinemet and B12 supplementation. Continue Hypertension Hyperlipidemia Continue patient's home dose of Lipitor 10 mg by mouth daily Clonidine when necessary with parameters Hypokalemia. Replaced. Monitor K level and replace as need. Mag level 2.0 Monitor and replace as indicated Follow-up with BMP in a.m. to monitor response Diabetes mellitus controlled Hold metformin due to GEOVANY Accu-Chek ISS Hemoglobin A1c, 5.6. DVT prophylaxis -Patient is ambulatory Discussed with patient, nurse Discharge Planning Discharge planning per psych. Kidney function improving. Josefa Ruelas MD Oct 14, 2016 10:17
--- NOTE | 2016-10-14 10:45 | HHI.PYPN ---
Subjective Remarks Patient is a for follow, chart review. As discussed with nursing staff there was reported the patient slept well last night currently on IV fluids with improving creatinine, patient seemed he received Ativan by mouth 1 and 9 PM at that he was pulling his IV line last evening. This morning the patient had noted to be eating and feeling okay. Patient seen lying in hospital bed, calm and cooperative in interview. Patient states they've been feeling "better" and states that his head is "is not as floating around" and when asked to expand to elaborate patient was not able to elaborate patient states that "everything is out of proportion" and again when asked to elaborate patient was unable to do so. Patient noted to be internally preoccupied during interview with some thought blocking. Patient states that he has had auditory hallucinations last evening and vaguely mentioned visual hallucinations but was unable to specify. With passive patient was experiencing auditory hallucinations at time of interview patient simply remained quiet. Review of Systems Except as stated in HPI: all other systems reviewed are Neg Objective Alert: Yes [place]: Person, Place ([place], [place]), Date (Oct, 2016) Mood: Other ("better") Affect: Flat Memory Intact: Comment (Remains impaired) Hallucinations: Other (unclear at time of interview with having perceptual disturbances this patient did not elaborate) Delusions: No Delusion Type: Other (No delusions) Suicidal: Ideation (endorsing suicidal ideations.) Homicidal: Ideation (No HI) Insight/Judgment Impaired insight, fair impulse control, poor judgement Labs Labs reviewed. Patient continues to have mild thrombocytopenia, slowly improving GFR. Test 10/13/16 10/14/16 14:58 08:16 Stool C. difficile Toxin (PCR) NEGATIVE Stl C. difficile Toxin PRESUMPTIVE Epiderm 027 NEGATIVE White Blood Count 6.1 TH/MM3 Red Blood Count 4.29 MIL/MM3 Hemoglobin 13.2 GM/DL Hematocrit 37.3 % Mean Corpuscular Volume 87.0 FL Mean Corpuscular Hemoglobin 30.8 PG Mean Corpuscular Hemoglobin 35.5 % Concent Red Cell Distribution Width 13.4 % Platelet Count 111 TH/MM3 Mean Platelet Volume 9.2 FL Neutrophils (%) (Auto) 63.7 % Lymphocytes (%) (Auto) 18.8 % Monocytes (%) (Auto) 10.1 % Eosinophils (%) (Auto) 6.6 % Basophils (%) (Auto) 0.8 % Neutrophils # (Auto) 3.9 TH/MM3 Lymphocytes # (Auto) 1.2 TH/MM3 Monocytes # (Auto) 0.6 TH/MM3 Eosinophils # (Auto) 0.4 TH/MM3 Basophils # (Auto) 0.1 TH/MM3 CBC Comment DIFF FINAL Differential Comment Sodium Level 142 MEQ/L Potassium Level 3.3 MEQ/L Chloride Level 107 MEQ/L Carbon Dioxide Level 26.4 MEQ/L Anion Gap 9 MEQ/L Blood Urea Nitrogen 12 MG/DL Creatinine 1.30 MG/DL Estimat Glomerular Filtration 55 ML/MIN Rate Random Glucose 122 MG/DL Calcium Level 8.6 MG/DL Vitals/IOs Vital Signs Date Time Temp Pulse Resp B/P Pulse Ox O2 Delivery O2 Flow Rate FiO2 10/14/16 05:00 97.7 82 18 147/79 97 Intake and Output 10/13/16 10/13/16 10/13/16 07:59 15:59 23:59 Intake Total 1286 ml 1440 ml 960 ml Balance 1286 ml 1440 ml 960 ml Assessment & Plan Problem List: (1) Major neurocognitive disorder ICD Code: F03.90 Assessment & Plan Patient at this time continues to be noted to be internally preoccupied, although alert and oriented patient continues to state he is here for dizziness and lightheadedness. Patient denies having felt dizzy or lightheaded but continues to endorse auditory hallucinations and unclear whether he continues to experience visual hallucinations at this time. Patient noted to be internally preoccupied with some thought blocking. Will continue Sinemet daily , continue sertraline 50 mg by mouth daily, increase quetiapine 25 mg by mouth at bedtime with upward titration as needed for psychosis. EKG ordered. Patient will continue to be follow primary medical team. Monitor medication response and adverse drug reactions. Discharge planning in progress Justification for Cont. Inpt. Patient risk for further decompensation if at lower level of care Discharge Planning In progress Request HC Surrog/Guard Advoc?: Abdon Segovia MD Oct 14, 2016 10:45
[2016-10-14] MEDS ORDERED: POTASSIUM CHLORIDE 10 MEQ CONTROLLED RELEASE TAB PO ONE (11:15)
--- NOTE | 2016-10-14 12:13 | HHI.NPPN ---
Subjective Renal Failure: Chronic, Acute, Stage III History of Present Illness 66-year-old male with past medical history of depression and psychosis, hypertension, diabetes mellitus, hyperlipidemia, chronic kidney disease, was admitted to the psych department because of worsening psychosis. I was called to see the patient for elevated BUN and creatinine. The patient denies any known history of renal disease. We do not have any previous labs for him except the first creatinine we have on September 29 was 1.7 and it has improved to 1.3. Additional Remarks Patient is alert, no SOB, not in distress, clinically same. Objective Data Data 10/13/16 10/14/16 18:59 06:59 Intake Total 1920 ml 3097 ml Balance 1920 ml 3097 ml Intake Oral 1920 ml 480 ml IV Total 2617 ml # Voids 2 # Bowel Movements 0 Vital Signs Date Time Temp Pulse Resp B/P Pulse Ox O2 Delivery O2 Flow Rate FiO2 10/14/16 05:00 97.7 82 18 147/79 97 10/13/16 18:20 98.8 86 18 149/69 96 -: 10/14/16 0816 10/14/16 0816 Physical Exam General Appearance: No Acute Distress, Comfortable Eyes Eye Exam: Pupils Equal Pulmonary Resp Exam: Clear Bilaterally, Breath Sounds Equal, No Distress Cardiology CV Exam: Regular, Normal Sinus Rhythm Gastrointestinal/Abdomen GI Exam: Soft, Non-Tender, Bowel Sounds Present Extremeties Extremities Exam: No Edema Neurologic Neuro Exam: Alert, Awake Assessment/Plan Assessment Summary: GEOVANY/Acute Renal Failure, CKD Stage III Problem List: (1) Depression (2) Adjustment disorder (3) Major neurocognitive disorder (4) GEOVANY (acute kidney injury) Plan Patient has now stable Creatinine of 1.3. BP is stable. If eating well, can D/C IVF. Avoid Nephrotoxins, Possibly has chronic kidney disease and baseline Creatinine close to 1.3. Problem Qualifiers (1) Adjustment disorder: Qualified Code: F43.20 - Adjustment disorder, unspecified type Madhuri Lott MD Oct 14, 2016 12:13
[2016-10-14 18:00] VITALS: BP 147/76; PULSE 78; RESP 18; TEMP 99.1; O2SAT 97
[2016-10-14] MEDS: ATORVASTATIN 10 MG TAB PO SCH (21:33)
[2016-10-14] MEDS: QUEtiapine FUMARATE 25 MG TAB PO SCH (21:34)
[2016-10-14] MEDS: hydrOXYzine PAMOATE 25 MG CAP PO SCH (21:34)
[2016-10-15] MEDS: LORazepam 1 MG TAB PO PRN ×2 (01:17→21:32)
[2016-10-15 05:15] VITALS: BP 131/80; PULSE 84; RESP 18; TEMP 97.7; O2SAT 97
[2016-10-15] MEDS: INSULIN ASPART SUPPLEMENTAL SCALE SQ SCH ×4 (07:00→20:19)
[2016-10-15] MEDS: SODIUM CHLOR 0.9% 1000 ML INJ 1,000 ML IV SCH ×3 (07:15→20:20)
[2016-10-15] MEDS: CARBIDOPA/LEVODOPA 25 MG/100 MG TAB PO SCH ×2 (08:11→20:19)
[2016-10-15] MEDS: CLOTRIMAZOLE 1% CREAM 15 GM TOPICAL SCH (08:11)
[2016-10-15] MEDS: TRIAMCINOLONE ACETONIDE 0.1% CREAM 15 GM TOPICAL SCH (08:11)
[2016-10-15] MEDS: SERTRALINE HCL 50 MG TAB PO SCH (08:11)
[2016-10-15] MEDS: LACTOBACILLUS ACIDOPHILUS TAB PO SCH ×2 (08:11→20:19)
[2016-10-15 12:26] LABS: AUTOMATED NEUTROPHIL # 3.3 TH/MM3 (1.8-7.7); BASOPHIL # 0.1 TH/MM3 (0-0.2); BASOPHIL % 1.1 % (0.0-2.0); EOSINOPHIL # 0.4 TH/MM3 (0-0.4); HEMATOCRIT 38.9 % (39.0-51.0); HEMO FLAGS DIFF FINAL; LYMPHOCYTE # 1.5 TH/MM3 (1.0-4.8); MEAN CELL VOLUME 87.1 FL (80.0-100.0); MEAN CORPUSCULAR HEMOGLOBIN 30.9 PG (27.0-34.0); MEAN CORPUSCULAR HGB CONC 35.5 % (32.0-36.0); MONO % 9.7 % (0.0-8.0); NEUT % 57.2 % (16.0-70.0); PLATELET COUNT 120 TH/MM3 (150-450); RED BLOOD COUNT 4.47 MIL/MM3 (4.50-5.90); RED CELL DISTRIBUTION WIDTH 13.1 % (11.6-17.2); WHITE BLOOD COUNT 5.8 TH/MM3 (4.0-11.0)
--- NOTE | 2016-10-15 12:27 | EKG ---
Date Performed: 10/14/2016 Time Performed: 18:46:11 PTAGE: 66 years EKG: Sinus rhythm NORMAL ECG PREVIOUS TRACING : 10/06/2016 11.39 Compared to prior tracing no significant change DOCTOR: Hayden Shaw Interpretating Date/Time 10/15/2016 12:24:19
[2016-10-15 12:50] LABS: BICARBONATE 27.1 MEQ/L (21.0-32.0); POTASSIUM 3.2 MEQ/L (3.5-5.1)
--- NOTE | 2016-10-15 16:12 | HHI.PYPN ---
Subjective Remarks Patient seen for psychiatric evaluation, patient is calm, cooperative, pleasant. He reported improved mood, he says that he has been eating okay, had a good night last night, compliant with medication, no significant side effects. Patient is oriented 3, no attention deficit present. Review of Systems Other No somatic complaint Objective Alert: Yes [place]: Person, Place ([place], [place]), Date (Oct, 2016) Mood: Other ("better") Affect: Flat Memory Intact: Comment (Remains impaired) Hallucinations: Other (unclear at time of interview with having perceptual disturbances this patient did not elaborate) Delusions: No Delusion Type: Other (No delusions) Suicidal: Ideation (endorsing suicidal ideations.) Homicidal: Ideation (No HI) Insight/Judgment Improved Labs Test 10/15/16 12:09 White Blood Count 5.8 TH/MM3 Red Blood Count 4.47 MIL/MM3 Hemoglobin 13.8 GM/DL Hematocrit 38.9 % Mean Corpuscular Volume 87.1 FL Mean Corpuscular Hemoglobin 30.9 PG Mean Corpuscular Hemoglobin 35.5 % Concent Red Cell Distribution Width 13.1 % Platelet Count 120 TH/MM3 Mean Platelet Volume 9.0 FL Neutrophils (%) (Auto) 57.2 % Lymphocytes (%) (Auto) 25.0 % Monocytes (%) (Auto) 9.7 % Eosinophils (%) (Auto) 7.0 % Basophils (%) (Auto) 1.1 % Neutrophils # (Auto) 3.3 TH/MM3 Lymphocytes # (Auto) 1.5 TH/MM3 Monocytes # (Auto) 0.6 TH/MM3 Eosinophils # (Auto) 0.4 TH/MM3 Basophils # (Auto) 0.1 TH/MM3 CBC Comment DIFF FINAL Differential Comment Sodium Level 138 MEQ/L Potassium Level 3.2 MEQ/L Chloride Level 102 MEQ/L Carbon Dioxide Level 27.1 MEQ/L Anion Gap 9 MEQ/L Blood Urea Nitrogen 9 MG/DL Creatinine 1.47 MG/DL Estimat Glomerular Filtration 48 ML/MIN Rate Random Glucose 128 MG/DL Calcium Level 8.9 MG/DL Vitals/IOs Vital Signs Date Time Temp Pulse Resp B/P Pulse Ox O2 Delivery O2 Flow Rate FiO2 10/15/16 05:15 97.7 84 18 131/80 97 Intake and Output 10/14/16 10/14/16 10/15/16 08:00 16:00 00:00 Intake Total 2857 ml 280 ml 2658 ml Balance 2857 ml 280 ml 2658 ml Assessment & Plan Problem List: (1) Major neurocognitive disorder Assessment & Plan: Continue current psychotropic regimen. ICD Code: F03.90 Assessment & Plan Estimated LOS: days Justification for Cont. Inpt. Patient is to continue psychiatric hospitalization for stabilization Request HC Surrog/Guard Advoc?: No Henrik Soto MD Oct 15, 2016 16:12
--- NOTE | 2016-10-15 16:15 | HHI.PR ---
Subjective Remarks Says she is eating better, however potassium is still low. He is drinking more fluids per nurse. Family at bedside. Patient denies any nausea, vomiting, diarrhea or constipation. He feels better however he still appeared depressed. Takes time to answer questions. Objective Vitals Vital Signs Date Time Temp Pulse Resp B/P Pulse Ox O2 Delivery O2 Flow Rate FiO2 10/15/16 05:15 97.7 84 18 131/80 97 10/14/16 18:00 99.1 78 18 147/76 97 I/O 10/14/16 10/14/16 10/14/16 10/15/16 10/15/16 10/15/16 07:00 15:00 23:00 07:00 15:00 23:00 Intake Total 2617 ml 520 ml 2658 ml 442 ml 360 ml Output Total 2 ml Balance 2617 ml 520 ml 2658 ml 440 ml 360 ml Intake Oral 520 ml 1020 ml 360 ml IV Total 2617 ml 1638 ml 442 ml Output Stool Total 2 ml # Voids 1 1 Result Diagram: 10/15/16 1209 10/15/16 1209 Imaging Last Impressions Renal Ultrasound 10/12/16 0000 Signed Impressions: Service Date/Time: October 12:44 - CONCLUSION: 1. No evidence of hydronephrosis. 2. Benign right renal cyst measuring 2.5 cm. Trey Bang MD Objective Remarks GENERAL: Pt encountered in day room and used a walker to ambulate to his room. Pt alert. NAD CARDIOVASCULAR: Regular rate and rhythm without murmurs, gallops, or rubs. RESPIRATORY: Breath sounds equal bilaterally. No accessory muscle use. GASTROINTESTINAL: Abdomen soft, non-tender, nondistended. MUSCULOSKELETAL: No cyanosis, or edema. PSYCHIATRIC: Alert and oriented x 3. Pleasant and cooperative. No overt signs of anxiety/depression. Speech clear and fluent. A/P Assessment and Plan 66-year-old male with past medical history significant for depression, hypertension, diabetes and dyslipidemia who came in with complaints of dizziness and was found to have low B12 and parkinsonian symptoms. Patient started on Sinemet and B12. Patient voiced thoughts of harming himself and burning down the hospital. Patient now admitted to the psychiatric unit and hospitalist service is consulted for medical management. GEOVANY on likely CKD. Kidney indices improved with IVF. Unknown kidney indices baseline. Creatinine increased to 1.52 (from 1.37) 10/12/16. Encourage fluids. Consider nephrology consult.A1c noted to be 5.6. Hold metformin Encourage by mouth fluids Patient is telling me he has decreased PO intake as he is depressed. Received 1L NS. DC IVF, encourage PO hydration. US kidney reviewed benign right renal cyst noted Nephrology on consult, appreciate recommendations. Avoid nephrotoxins. Adjustment disorder Depression Management per psychiatric team Parkinsonian symptoms B12 deficiency Patient evaluated by neurology and started on Sinemet and B12 supplementation. Continue Hypertension Hyperlipidemia Continue patient's home dose of Lipitor 10 mg by mouth daily Clonidine when necessary with parameters Hypokalemia. Replaced. Monitor K level and replace as need. Mag level 2.0 Monitor and replace as indicated Follow-up with BMP in a.m. to monitor response Diabetes mellitus controlled Hold metformin due to GEOVANY Accu-Chek ISS Hemoglobin A1c, 5.6. DVT prophylaxis -Patient is ambulatory Discussed with patient, nurse Discharge Planning Discharge planning per psych. Kidney function improving. Josefa Ruelas MD Oct 15, 2016 16:15
[2016-10-15] MEDS ORDERED: POTASSIUM CHLORIDE 10 MEQ CONTROLLED RELEASE TAB PO ONE (16:30)
[2016-10-15 18:00] VITALS: BP 158/75; PULSE 76; RESP 18; TEMP 97.7; O2SAT 94
[2016-10-15] MEDS: ATORVASTATIN 10 MG TAB PO SCH (20:19)
[2016-10-15] MEDS: hydrOXYzine PAMOATE 25 MG CAP PO SCH (20:19)
[2016-10-15] MEDS: QUEtiapine FUMARATE 25 MG TAB PO SCH (20:19)
[2016-10-15] MEDS: diphenhydrAMINE HCL 50 MG CAP PO PRN (21:32)
[2016-10-16 04:48] VITALS: BP 138/78; PULSE 86; RESP 15; TEMP 96.9; O2SAT 98
[2016-10-16] MEDS: INSULIN ASPART SUPPLEMENTAL SCALE SQ SCH ×4 (06:39→21:00)
[2016-10-16] MEDS: SODIUM CHLOR 0.9% 1000 ML INJ 1,000 ML IV SCH ×3 (06:42→20:38)
[2016-10-16 08:20] LABS: AUTOMATED NEUTROPHIL # 2.7 TH/MM3 (1.8-7.7); BASOPHIL # 0.1 TH/MM3 (0-0.2); BASOPHIL % 1.3 % (0.0-2.0); EOSINOPHIL # 0.4 TH/MM3 (0-0.4); EOSINOPHIL % 8.8 % (0.0-4.0); HEMATOCRIT 39.6 % (39.0-51.0); HEMO FLAGS DIFF FINAL; LYMPH % 26.3 % (9.0-44.0); LYMPHOCYTE # 1.3 TH/MM3 (1.0-4.8); MEAN CELL VOLUME 86.8 FL (80.0-100.0); MEAN CORPUSCULAR HEMOGLOBIN 30.5 PG (27.0-34.0); MEAN CORPUSCULAR HGB CONC 35.2 % (32.0-36.0); MONO % 11.6 % (0.0-8.0); PLATELET COUNT 113 TH/MM3 (150-450); RED BLOOD COUNT 4.57 MIL/MM3 (4.50-5.90); RED CELL DISTRIBUTION WIDTH 12.8 % (11.6-17.2); WHITE BLOOD COUNT 5.1 TH/MM3 (4.0-11.0)
[2016-10-16 08:42] LABS: BICARBONATE 27.2 MEQ/L (21.0-32.0); POTASSIUM 3.4 MEQ/L (3.5-5.1)
[2016-10-16] MEDS: TRIAMCINOLONE ACETONIDE 0.1% CREAM 15 GM TOPICAL SCH (09:00)
[2016-10-16] MEDS: CLOTRIMAZOLE 1% CREAM 15 GM TOPICAL SCH (09:00)
[2016-10-16] MEDS: CARBIDOPA/LEVODOPA 25 MG/100 MG TAB PO SCH ×2 (09:02→20:38)
[2016-10-16] MEDS: SERTRALINE HCL 50 MG TAB PO SCH (09:02)
[2016-10-16] MEDS: LACTOBACILLUS ACIDOPHILUS TAB PO SCH ×2 (09:02→20:37)
[2016-10-16] MEDS ORDERED: POTASSIUM CHLORIDE 20 MEQ CONTROLLED RELEASE TAB PO ONE (11:00)
--- NOTE | 2016-10-16 14:20 | HHI.PR ---
Subjective Remarks potassium low states felt light headed earlier but now asymtomatic denies cp/sob stable bp Creatinine better Objective Vitals Vital Signs Date Time Temp Pulse Resp B/P Pulse Ox O2 Delivery O2 Flow Rate FiO2 10/16/16 04:48 96.9 86 15 138/78 98 10/15/16 18:00 97.7 76 18 158/75 94 I/O 10/15/16 10/15/16 10/15/16 10/16/16 10/16/16 10/16/16 07:00 15:00 23:00 07:00 15:00 23:00 Intake Total 442 ml 360 ml 1080 ml 720 ml Output Total 2 ml Balance 440 ml 360 ml 1080 ml 720 ml Intake Oral 360 ml 1080 ml 720 ml IV Total 442 ml Output Stool Total 2 ml # Voids 1 2 1 Result Diagram: 10/16/16 0752 10/16/16 0752 Imaging Last Impressions Renal Ultrasound 10/12/16 0000 Signed Impressions: Service Date/Time: October 12:44 - CONCLUSION: 1. No evidence of hydronephrosis. 2. Benign right renal cyst measuring 2.5 cm. Trey Bang MD Objective Remarks GENERAL: lying in bed. Pt alert. NAD CARDIOVASCULAR: Regular rate and rhythm without murmurs, gallops, or rubs. RESPIRATORY: Breath sounds equal bilaterally. No accessory muscle use. GASTROINTESTINAL: Abdomen soft, non-tender, nondistended. MUSCULOSKELETAL: No cyanosis, or edema. PSYCHIATRIC: Alert and oriented x 3. Pleasant and cooperative. No overt signs of anxiety/depression. Speech clear and fluent. Procedures none Medications and IVs Current Medications Medications (Trade) Dose Ordered Sig/Alyssa Route Start Time Stop Time Status Last Admin (Ativan) 1 mg Q6H PRN PO 10/07/16 16:15 10/15/16 21:32 (Ativan Inj) 1 mg Q6H PRN IM 10/07/16 16:15 (Benadryl) 50 mg HS PRN PO 10/07/16 16:15 10/15/16 21:32 (Tylenol) 650 mg Q4H PRN PO 10/07/16 16:15 10/11/16 21:00 (Milk Of Magnesia Liq) 30 ml DAILY PRN PO 10/07/16 16:15 (Mag-Al Plus Susp Liq) 30 ml Q6H PRN PO 10/07/16 16:15 (Cogentin) 1 mg Q12H PRN PO 10/07/16 16:15 (Cogentin Inj) 1 mg Q12H PRN IM 10/07/16 16:15 (Lipitor) 10 mg HS PO 10/07/16 21:00 10/15/16 20:19 (Sinemet 25-100 Mg) 1 tab Q12HR PO 10/07/16 21:00 10/16/16 09:02 (Lotrimin 1% Cream) 1 applic DAILY TOPICAL 10/08/16 09:00 10/16/16 09:00 (Vistaril) 25 mg HS PO 10/07/16 21:00 10/15/16 20:19 (Antivert) 12.5 mg TID PRN PO 10/07/16 16:15 (Aristocort 0.1% Cream) 1 applic DAILY TOPICAL 10/08/16 09:00 10/16/16 09:00 (Pill Splitter) 1 ea UNSCH PRN OTHER 10/07/16 16:45 (Zoloft) 50 mg DAILY PO 10/09/16 09:00 10/16/16 09:02 (Catapres) 0.1 mg Q6H PRN PO 10/08/16 18:15 (D50w (Vial) Inj) 50 ml UNSCH PRN IV 10/08/16 18:15 Glucagon 1 mg 1 mg UNSCH PRN OTHER 10/08/16 18:15 (NS 1000 ml Inj) 1,000 ml @ 125 mls/hr Q8H IV 10/12/16 15:15 10/14/16 22:49 (Lactinex) 1 tab BID PO 10/13/16 21:00 10/16/16 09:02 (SEROquel) 25 mg HS PO 10/14/16 21:00 10/15/16 20:19 Urinary Catheter: No Vascular Central Line Catheter: No A/P Problem List: (1) Adjustment disorder ICD Code: F43.20 Status: Acute (2) Major neurocognitive disorder ICD Code: F03.90 Status: Acute (3) Light-headedness ICD Code: R42 Status: Acute (4) GEOVANY (acute kidney injury) ICD Code: N17.9 Status: Acute Assessment and Plan 66-year-old male with past medical history significant for depression, hypertension, diabetes and dyslipidemia who came in with complaints of dizziness and was found to have low B12 and parkinsonian symptoms. Patient started on Sinemet and B12. Patient voiced thoughts of harming himself and burning down the hospital. Patient now admitted to the psychiatric unit and hospitalist service is consulted for medical management. GEOVANY on likely CKD. Kidney indices improved with IVF. Unknown kidney indices baseline. Creatinine increased to 1.52 (from 1.37) 10/12/16. Encourage fluids. Consider nephrology consult.A1c noted to be 5.6. Metformin held Received 1L NS. DC IVF, encourage PO hydration. US kidney reviewed benign right renal cyst noted Nephrology consulted GEOVANY resolving creatinine down from 1.4 to 1.2 - Continue IV fluids but may DC Fluids if patient is eating well. Adjustment disorder Depression Management per psychiatric team Parkinsonian symptoms B12 deficiency Patient evaluated by neurology and started on Sinemet and B12 supplementation. Continue Hypertension Hyperlipidemia Continue patient's home dose of Lipitor 10 mg by mouth daily Clonidine when necessary with parameters Hypokalemia. Replaced. Monitor K level and replace as need. Mag level 2.0 K low today at 3.4 Replace orally and continue to monitor BMP. Diabetes mellitus controlled Hold metformin due to GEOVANY Accu-Chek ISS Hemoglobin A1c, 5.6. Blood sugars stable Lightheadedness - check orthostatic bp. DVT prophylaxis -Patient is ambulatory Discussed with patient, nurse Problem Qualifiers (1) Adjustment disorder: Qualified Code: F43.20 - Adjustment disorder, unspecified type Alvin Garzon MD Oct 16, 2016 14:20
--- NOTE | 2016-10-16 14:21 | HHI.PYPN ---
Subjective Remarks Patient seen for follow-up, chart reviewed. As a discussion with nursing team, patient was found this evening "shoving things down the commode", noted to be incoherent and confused at times. Patient was found lying in hospital bed in the hallway, Cooperative in Interview. Patient states he doesn't recall the event last evening which he was throwing things in the toilet. He states that he was visited by his mother last evening but answers report was visited by his and son. She reports eating and drinking well, no issues with urination a bowel movement, reports adherence to history of denies any adverse drug reactions. Patient continues to be confused alert and oriented only to person. Although he denied auditory or visual hallucinations at time of interview patient was found responding to internal stimuli during visit as reported by nursing staff. Patient denies SI, HI, AVH or delusions at time of interview but also appears to be minimizing symptoms with advertising copywriter at this time. Patient reports feeling better, with improved mood. Review of Systems Except as stated in HPI: all other systems reviewed are Neg Objective Alert: Yes [place]: Person Mood: Other Affect: Blunted (blunted with occasional smiling) Memory Intact: Comment (Remains impaired) Hallucinations: Other (denied any perceptual disturbances at this time but also to be responding to internal stimuli as per nursing staff) Delusions: No Delusion Type: Other (No delusions) Suicidal: Ideation (endorsing suicidal ideations.) Homicidal: Ideation (No HI) Insight/Judgment Poor insight, fair impulse control poor judgment Remarks Patient appears stated age, found hospital gown. Calm and cooperative in interview. Fair eye contact. Patient noted to have thought blocking and is internally preoccupied during interview. Thought process concrete, thought content denies SI, HI, AVH or delusions. Appears to be minimizing symptoms at this time. Labs Labs reviewed. Patient continues with mild hypokalemia and thrombocytopenia. Test 10/16/16 07:52 White Blood Count 5.1 TH/MM3 Red Blood Count 4.57 MIL/MM3 Hemoglobin 13.9 GM/DL Hematocrit 39.6 % Mean Corpuscular Volume 86.8 FL Mean Corpuscular Hemoglobin 30.5 PG Mean Corpuscular Hemoglobin 35.2 % Concent Red Cell Distribution Width 12.8 % Platelet Count 113 TH/MM3 Mean Platelet Volume 8.9 FL Neutrophils (%) (Auto) 52.0 % Lymphocytes (%) (Auto) 26.3 % Monocytes (%) (Auto) 11.6 % Eosinophils (%) (Auto) 8.8 % Basophils (%) (Auto) 1.3 % Neutrophils # (Auto) 2.7 TH/MM3 Lymphocytes # (Auto) 1.3 TH/MM3 Monocytes # (Auto) 0.6 TH/MM3 Eosinophils # (Auto) 0.4 TH/MM3 Basophils # (Auto) 0.1 TH/MM3 CBC Comment DIFF FINAL Differential Comment Sodium Level 136 MEQ/L Potassium Level 3.4 MEQ/L Chloride Level 103 MEQ/L Carbon Dioxide Level 27.2 MEQ/L Anion Gap 6 MEQ/L Blood Urea Nitrogen 12 MG/DL Creatinine 1.23 MG/DL Estimat Glomerular Filtration 59 ML/MIN Rate Random Glucose 102 MG/DL Calcium Level 8.8 MG/DL Vitals/IOs Vital Signs Date Time Temp Pulse Resp B/P Pulse Ox O2 Delivery O2 Flow Rate FiO2 10/16/16 04:48 96.9 86 15 138/78 98 Intake and Output 10/15/16 10/15/16 10/16/16 08:00 16:00 00:00 Intake Total 562 ml 240 ml 1080 ml Output Total 2 ml Balance 560 ml 240 ml 1080 ml Assessment & Plan Problem List: (1) Major neurocognitive disorder ICD Code: F03.90 Assessment & Plan Patient continues to be confused on the unit, appears to have some regression at this time which is allowing staff to treat him although this capable of self defeat himself. Patient able to recall event last evening which she was throwing objects down the toilet. Patient minimizes symptoms and denying any perceptual disturbances although noted to be internally preoccupied with some thought blocking during interview. Patient noted with some mild rigidity upper extremities and slightly shuffled gait, and continues with perceptual disturbances as reported by nursing staff, noted to be dry preoccupied although minimizing symptoms this advertising copywriter. Patient will continue on current treatment will likely increase quetiapine slowly as differential diagnoses is DLB which patient may be more sensitive to neuroleptics but must address current psychosis at this time. Patient may require more supervised setting post discharge which team will continue to explore. Justification for Cont. Inpt. Patient was referred of the conversation if it lower level of care Discharge Planning In progress Request HC Surrog/Guard Advoc?: No Abdon Mario MD Oct 16, 2016 14:21
--- NOTE | 2016-10-16 16:26 | HHI.NPPN ---
Subjective Renal Failure: Chronic, Acute, Stage III History of Present Illness 66-year-old male with past medical history of depression and psychosis, hypertension, diabetes mellitus, hyperlipidemia, chronic kidney disease, was admitted to the psych department because of worsening psychosis. I was called to see the patient for elevated BUN and creatinine. The patient denies any known history of renal disease. We do not have any previous labs for him except the first creatinine we have on September 29 was 1.7 and it has improved to 1.3. Additional Remarks Patient is alert, no SOB, not in distress. Objective Data Data 10/15/16 10/16/16 19:00 07:00 Intake Total 1080 ml 360 ml Balance 1080 ml 360 ml Intake Oral 1080 ml 360 ml # Voids 3 Vital Signs Date Time Temp Pulse Resp B/P Pulse Ox O2 Delivery O2 Flow Rate FiO2 10/16/16 04:48 96.9 86 15 138/78 98 10/15/16 18:00 97.7 76 18 158/75 94 -: 10/16/16 0752 10/16/16 0752 Physical Exam General Appearance: No Acute Distress, Comfortable Eyes Eye Exam: Pupils Equal Pulmonary Resp Exam: Clear Bilaterally, Breath Sounds Equal, No Distress Cardiology CV Exam: Regular, Normal Sinus Rhythm Gastrointestinal/Abdomen GI Exam: Soft, Non-Tender, Bowel Sounds Present Extremeties Extremities Exam: No Edema Neurologic Neuro Exam: Alert, Awake Assessment/Plan Assessment Summary: GEOVANY/Acute Renal Failure, CKD Stage III Problem List: (1) Depression (2) Adjustment disorder (3) Major neurocognitive disorder (4) GEOVANY (acute kidney injury) Plan Patient has now some improvement in the Creatinine and it is 1.2, BP is stable. Avoid Nephrotoxins, Possibly has chronic kidney disease. Encourage oral intake. Problem Qualifiers (1) Adjustment disorder: Qualified Code: F43.20 - Adjustment disorder, unspecified type Madhuri Lott MD Oct 16, 2016 16:26
[2016-10-16 18:29] VITALS: BP 135/76; PULSE 73; RESP 16; TEMP 97.9; O2SAT 96
[2016-10-16] MEDS: hydrOXYzine PAMOATE 25 MG CAP PO SCH (20:37)
[2016-10-16] MEDS: ATORVASTATIN 10 MG TAB PO SCH (20:37)
[2016-10-16] MEDS ORDERED: QUEtiapine FUMARATE 25 MG TAB PO SCH (21:00)
[2016-10-16] MEDS: diphenhydrAMINE HCL 50 MG CAP PO PRN (21:49)
[2016-10-16] MEDS: LORazepam 1 MG TAB PO PRN (21:50)
[2016-10-17 05:18] VITALS: BP 130/71; PULSE 82; RESP 18; TEMP 97; O2SAT 96
[2016-10-17] MEDS: INSULIN ASPART SUPPLEMENTAL SCALE SQ SCH ×4 (06:29→21:00)
[2016-10-17] MEDS: SODIUM CHLOR 0.9% 1000 ML INJ 1,000 ML IV SCH ×3 (07:09→22:21)
[2016-10-17] MEDS: CARBIDOPA/LEVODOPA 25 MG/100 MG TAB PO SCH ×2 (08:49→21:38)
[2016-10-17] MEDS: TRIAMCINOLONE ACETONIDE 0.1% CREAM 15 GM TOPICAL SCH (08:49)
[2016-10-17] MEDS: LACTOBACILLUS ACIDOPHILUS TAB PO SCH ×2 (08:49→21:38)
[2016-10-17] MEDS: SERTRALINE HCL 50 MG TAB PO SCH (08:49)
[2016-10-17] MEDS: CLOTRIMAZOLE 1% CREAM 15 GM TOPICAL SCH (08:50)
[2016-10-17 14:58] LABS: BICARBONATE 27.1 MEQ/L (21.0-32.0); POTASSIUM 3.8 MEQ/L (3.5-5.1)
--- NOTE | 2016-10-17 16:25 | HHI.PR ---
Subjective Remarks as per RN patient having visual and auditory hallucinations patient has no complaints denies cp/sob creatinine trending up to 1.6 Objective Vitals Vital Signs Date Time Temp Pulse Resp B/P Pulse Ox O2 Delivery O2 Flow Rate FiO2 10/17/16 05:18 97.0 82 18 130/71 96 10/16/16 18:29 97.9 73 16 135/76 96 I/O 10/16/16 10/16/16 10/16/16 10/17/16 10/17/16 10/17/16 06:59 14:59 22:59 06:59 14:59 22:59 Intake Total 720 ml 240 ml 720 ml Balance 720 ml 240 ml 720 ml Intake Oral 720 ml 240 ml 720 ml # Voids 1 1 1 Result Diagram: 10/16/16 0752 10/17/16 1339 Imaging Last Impressions Renal Ultrasound 10/12/16 0000 Signed Impressions: Service Date/Time: October 12:44 - CONCLUSION: 1. No evidence of hydronephrosis. 2. Benign right renal cyst measuring 2.5 cm. Trey Bang MD Objective Remarks GENERAL: lying in bed. Pt alert. NAD CARDIOVASCULAR: Regular rate and rhythm without murmurs, gallops, or rubs. RESPIRATORY: Breath sounds equal bilaterally. No accessory muscle use. GASTROINTESTINAL: Abdomen soft, non-tender, nondistended. MUSCULOSKELETAL: No cyanosis, or edema. PSYCHIATRIC: Alert and oriented x 3. Pleasant and cooperative. No overt signs of anxiety/depression. Speech clear and fluent. Procedures none Medications and IVs Current Medications Medications (Trade) Dose Ordered Sig/Alyssa Route Start Time Stop Time Status Last Admin (Ativan) 1 mg Q6H PRN PO 10/07/16 16:15 10/16/16 21:50 (Ativan Inj) 1 mg Q6H PRN IM 10/07/16 16:15 (Benadryl) 50 mg HS PRN PO 10/07/16 16:15 10/16/16 21:49 (Tylenol) 650 mg Q4H PRN PO 10/07/16 16:15 10/11/16 21:00 (Milk Of Magnesia Liq) 30 ml DAILY PRN PO 10/07/16 16:15 (Mag-Al Plus Susp Liq) 30 ml Q6H PRN PO 10/07/16 16:15 (Cogentin) 1 mg Q12H PRN PO 10/07/16 16:15 (Cogentin Inj) 1 mg Q12H PRN IM 10/07/16 16:15 (Lipitor) 10 mg HS PO 10/07/16 21:00 10/16/16 20:37 (Sinemet 25-100 Mg) 1 tab Q12HR PO 10/07/16 21:00 10/17/16 08:49 (Lotrimin 1% Cream) 1 applic DAILY TOPICAL 10/08/16 09:00 10/16/16 09:00 (Vistaril) 25 mg HS PO 10/07/16 21:00 10/16/16 20:37 (Antivert) 12.5 mg TID PRN PO 10/07/16 16:15 (Aristocort 0.1% Cream) 1 applic DAILY TOPICAL 10/08/16 09:00 10/16/16 09:00 (Pill Splitter) 1 ea UNSCH PRN OTHER 10/07/16 16:45 (Zoloft) 50 mg DAILY PO 10/09/16 09:00 10/17/16 08:49 (Catapres) 0.1 mg Q6H PRN PO 10/08/16 18:15 (D50w (Vial) Inj) 50 ml UNSCH PRN IV 10/08/16 18:15 Glucagon 1 mg 1 mg UNSCH PRN OTHER 10/08/16 18:15 (NS 1000 ml Inj) 1,000 ml @ 125 mls/hr Q8H IV 10/12/16 15:15 10/14/16 22:49 (Lactinex) 1 tab BID PO 10/13/16 21:00 10/17/16 08:49 (SEROquel) 100 mg HS PO 10/17/16 21:00 A/P Problem List: (1) Adjustment disorder ICD Code: F43.20 Status: Acute (2) Major neurocognitive disorder ICD Code: F03.90 Status: Acute (3) Light-headedness ICD Code: R42 Status: Acute (4) GEOVANY (acute kidney injury) ICD Code: N17.9 Status: Acute Assessment and Plan 66-year-old male with past medical history significant for depression, hypertension, diabetes and dyslipidemia who came in with complaints of dizziness and was found to have low B12 and parkinsonian symptoms. Patient started on Sinemet and B12. Patient voiced thoughts of harming himself and burning down the hospital. Patient now admitted to the psychiatric unit and hospitalist service is consulted for medical management. GEOVANY on likely CKD. Kidney indices improved with IVF. Unknown kidney indices baseline. Creatinine increased to 1.52 (from 1.37) 10/12/16. Encourage fluids. Consider nephrology consult.A1c noted to be 5.6. Metformin held Received 1L NS. DC IVF, encourage PO hydration. US kidney reviewed benign right renal cyst noted Nephrology consulted GEOVANY resolving creatinine down from 1.4 to 1.2 - Continue IV fluids but may DC Fluids if patient is eating well. 10/17 creatinine Slightly elevated. Continue to monitor BMP. Nephrology following. Adjustment disorder Depression Management per psychiatric team Parkinsonian symptoms B12 deficiency Patient evaluated by neurology and started on Sinemet and B12 supplementation. Continue Hypertension Hyperlipidemia Continue patient's home dose of Lipitor 10 mg by mouth daily Clonidine when necessary with parameters Hypokalemia. Replaced. Monitor K level and replace as need. Mag level 2.0 K low today at 3.4 815 K level normal today. Continue to monitor BMP and replace as needed. Diabetes mellitus controlled Hold metformin due to GEOVANY Accu-Chek ISS Hemoglobin A1c, 5.6. Blood sugars stable Lightheadedness - check orthostatic bp - not done. Patient denies lightheadedness. DVT prophylaxis -Patient is ambulatory Discussed with patient, nurse Problem Qualifiers (1) Adjustment disorder: Qualified Code: F43.20 - Adjustment disorder, unspecified type Alvin Garzon MD Oct 17, 2016 16:25
--- NOTE | 2016-10-17 16:28 | HHI.PYPN ---
Subjective Remarks Patient's C-file, chart review. Patient's recent CBC showed mild thrombocytopenia, basic metabolic panel with a slightly mild hypokalemia and decreased GFR. After discussion with nursing, patient has limited interaction, continues to endorse visual hallucinations of family in the room last evening. Patient found lying in hospital bed found to be in good spirits, patient states that he has been feeling "better" and that he did yesterday he had attended the exercise group but also reported having walked yesterday around the hospital. Patient reports she was visited by family specifically Drs. friends and sister. Patient denies any auditory hallucinations but endorses visual hallucinations "once in a while" was unable to elaborate specifics. Patient noted to be in some preoccupied with some thought blocking and when asked what he was thinking about patient states even having the thoughts of "spinal procedure". Patient at this time denies SI, HI, AVH or delusions at time of interview. Review of Systems Except as stated in HPI: all other systems reviewed are Neg Objective Alert: Yes [place]: Person, Place, Date Mood: Other ("better") Affect: Blunted (blunted with occasional smiling) Memory Intact: Comment (Remains impaired) Hallucinations: Visual (reported recent visual hallucinations but denied experiencing them at time of interview), Other (denied any perceptual disturbances at this time but also to be responding to internal stimuli) Delusions: No Delusion Type: Other (No delusions) Suicidal: Ideation (endorsing suicidal ideations.) Homicidal: Ideation (No HI) Insight/Judgment Poor insight, fair post control, fair judgment Remarks Thought processes, noted to be thought blocking at times, thought content endorsing visual hallucinations but did not elaborate. Labs Test 10/17/16 13:39 Sodium Level 139 MEQ/L Potassium Level 3.8 MEQ/L Chloride Level 104 MEQ/L Carbon Dioxide Level 27.1 MEQ/L Anion Gap 8 MEQ/L Blood Urea Nitrogen 20 MG/DL Creatinine 1.66 MG/DL Estimat Glomerular Filtration 41 ML/MIN Rate Random Glucose 135 MG/DL Calcium Level 9.3 MG/DL Magnesium Level 2.0 MG/DL Vitals/IOs Vital Signs Date Time Temp Pulse Resp B/P Pulse Ox O2 Delivery O2 Flow Rate FiO2 10/17/16 05:18 97.0 82 18 130/71 96 Intake and Output 10/16/16 10/16/16 10/16/16 07:59 15:59 23:59 Intake Total 720 ml 240 ml Balance 720 ml 240 ml Assessment & Plan Problem List: (1) Major neurocognitive disorder ICD Code: F03.90 Assessment & Plan Patient at this time appears to be more reactive during interview but continues to be noted to have thought blocking and as noted to be internally preoccupied at times. Patient continues to have visual hallucinations but denied any auditory hallucinations. We will increase quetiapine to 100 mg by mouth at bedtime for psychosis. Continue sertraline 50 mg by mouth daily for depressive symptoms. We'll monitor for medication response and adverse drug reactions. We 'll monitor for possible NMS as patient with a differential diagnosis of Lewy body dementia. Patient to continue on Sinemet as per neurology consult. Living Coach attempted to contact our for update but was unable to reach them. We'll continue to attempt to contact family Justification for Cont. Inpt. Patient risk for further decompensation if it lower level of care Discharge Planning In progress Request HC Surrog/Guard Advoc?: No Abdon Mario MD Oct 17, 2016 16:28
[2016-10-17 17:58] VITALS: BP 126/69; PULSE 78; RESP 16; TEMP 97.8; O2SAT 95
--- NOTE | 2016-10-17 18:18 | HHI.NPPN ---
Subjective Renal Failure: Chronic, Acute, Stage III History of Present Illness 66-year-old male with past medical history of depression and psychosis, hypertension, diabetes mellitus, hyperlipidemia, chronic kidney disease, was admitted to the psych department because of worsening psychosis. I was called to see the patient for elevated BUN and creatinine. The patient denies any known history of renal disease. We do not have any previous labs for him except the first creatinine we have on September 29 was 1.7 and it has improved to 1.3. Additional Remarks Patient is alert, no SOB, not in distress. Objective Data Data 10/16/16 10/17/16 19:00 07:00 Intake Total 720 ml 240 ml Balance 720 ml 240 ml Intake Oral 720 ml 240 ml # Voids 1 Vital Signs Date Time Temp Pulse Resp B/P Pulse Ox O2 Delivery O2 Flow Rate FiO2 10/17/16 17:58 97.8 78 16 126/69 95 10/17/16 05:18 97.0 82 18 130/71 96 10/16/16 18:29 97.9 73 16 135/76 96 -: 10/16/16 0752 10/17/16 1339 Physical Exam General Appearance: No Acute Distress, Comfortable Eyes Eye Exam: Pupils Equal Pulmonary Resp Exam: Clear Bilaterally, Breath Sounds Equal, No Distress Cardiology CV Exam: Regular, Normal Sinus Rhythm Gastrointestinal/Abdomen GI Exam: Soft, Non-Tender, Bowel Sounds Present Extremeties Extremities Exam: No Edema Neurologic Neuro Exam: Alert, Awake Assessment/Plan Assessment Summary: GEOVANY/Acute Renal Failure, CKD Stage III Problem List: (1) Depression (2) Adjustment disorder (3) Major neurocognitive disorder (4) GEOVANY (acute kidney injury) Plan Patient has now some improvement in the Creatinine and it is 1.2, BP is stable. Avoid Nephrotoxins, Possibly has chronic kidney disease. Encourage oral intake. Problem Qualifiers (1) Adjustment disorder: Qualified Code: F43.20 - Adjustment disorder, unspecified type Madhuri Lott MD Oct 17, 2016 18:18
[2016-10-17] MEDS ORDERED: QUEtiapine FUMARATE 100 MG TAB PO SCH (21:00)
[2016-10-17] MEDS: hydrOXYzine PAMOATE 25 MG CAP PO SCH (21:37)
[2016-10-17] MEDS: ATORVASTATIN 10 MG TAB PO SCH (21:38)
[2016-10-18] MEDS: SODIUM CHLOR 0.9% 1000 ML INJ 1,000 ML IV SCH ×3 (03:45→20:28)
[2016-10-18 05:43] VITALS: BP 131/82; PULSE 85; RESP 20; TEMP 98.1; O2SAT 98
[2016-10-18] MEDS: INSULIN ASPART SUPPLEMENTAL SCALE SQ SCH ×4 (06:45→20:27)
[2016-10-18] MEDS: CLOTRIMAZOLE 1% CREAM 15 GM TOPICAL SCH (09:00)
--- NOTE | 2016-10-18 09:02 | HHI.PYPN ---
Subjective Remarks Patient seen for follow-up, chart reviewed. After discussing with nursing staff patient was doing well last evening, has not been pulling out his IV lines lately, had visits from family yesterday. Patient's creatinine noted to be elevated, and decreased GFR upon labs yesterday. Patient found lying in hospital bed watching television and able to engage in interview today. Patient states that he had a good night last night, doesn't recall who can do visit him this evening. Patient noted during to be looking outside stating "ship is going down" was unable to elaborate what he meant by that. Patient states that he did having less auditory hallucinations but continues to have them even during interview. Patient was pointing at the door when asked what he was seeing and states "I see appear". Patient noted to be internally preoccupied responding to internal stimuli was not able to elaborate. Patient stated that he's been feeling "good" denies being sad or depressed denies any manic symptoms or any other perceptual disturbances. Patient alert and oriented to person and place only. Diagnostic Cardiac Sonographer met with family last evening to discuss patient's current condition which due to patient's significant cognitive deficits will likely require supervision post discharge and services placed. Patient's family also aware that patient will continue to be followed by neurology as an outpatient and currently on Sinemet. Review of Systems Except as stated in HPI: all other systems reviewed are Neg Objective Alert: Yes [place]: Person, Place, Date Mood: Other ("good") Affect: Blunted (blunted with occasional smiling) Memory Intact: Comment (Remains impaired) Hallucinations: Visual (reports seeing appear pointing at the door), Other ( denied any perceptual disturbances at this time but also to be responding to internal stimuli) Delusions: No Delusion Type: Other (No delusions) Suicidal: Ideation (denies at this time) Homicidal: Ideation (No HI) Insight/Judgment Poor insight, fair impulse control, and poor judgment Labs Test 10/17/16 13:39 Sodium Level 139 MEQ/L Potassium Level 3.8 MEQ/L Chloride Level 104 MEQ/L Carbon Dioxide Level 27.1 MEQ/L Anion Gap 8 MEQ/L Blood Urea Nitrogen 20 MG/DL Creatinine 1.66 MG/DL Estimat Glomerular Filtration 41 ML/MIN Rate Random Glucose 135 MG/DL Calcium Level 9.3 MG/DL Magnesium Level 2.0 MG/DL Vitals/IOs Vital Signs Date Time Temp Pulse Resp B/P Pulse Ox O2 Delivery O2 Flow Rate FiO2 10/18/16 05:43 98.1 85 20 131/82 98 Intake and Output 10/17/16 10/17/16 10/18/16 08:00 16:00 00:00 Intake Total 0 ml 720 ml 960 ml Balance 0 ml 720 ml 960 ml Assessment & Plan Problem List: (1) Major neurocognitive disorder ICD Code: F03.90 Assessment & Plan Patient continues to endorse visual hallucinations, noted be disorganized, internally preoccupied and responding to internal stimuli. Patient also seems to be minimizing some of his symptoms refuses to elaborate when asked. Patient also having difficulty recalling who had visited him last evening he was alert and oriented to person and place only. Patient's current renal function is abnormal which medical team is currently managing at this time. Patient current treatment regimen includes Sinemet for idiopathic parkinsonian disease, will will increase quetiapine to 125 at bedtime for psychosis with slow titration due to risk of NMS as Lewy body dementia i current differential diagnosis at this time.. Monitor for medication response of his drug reactions. Discharge planning in progress Justification for Cont. Inpt. A service for further decompensation if it lower level of care Discharge Planning In progress Request HC Surrog/Guard Advoc?: No Abdon Mario MD Oct 18, 2016 09:02
[2016-10-18] MEDS: LACTOBACILLUS ACIDOPHILUS TAB PO SCH ×2 (10:04→20:27)
[2016-10-18] MEDS: TRIAMCINOLONE ACETONIDE 0.1% CREAM 15 GM TOPICAL SCH (10:04)
[2016-10-18] MEDS: CARBIDOPA/LEVODOPA 25 MG/100 MG TAB PO SCH ×2 (10:04→20:27)
[2016-10-18] MEDS: SERTRALINE HCL 50 MG TAB PO SCH (10:04)
[2016-10-18 11:00] LABS: BICARBONATE 25.5 MEQ/L (21.0-32.0); POTASSIUM 3.5 MEQ/L (3.5-5.1)
--- NOTE | 2016-10-18 14:26 | HHI.PR ---
Subjective Remarks patient seen with JM genao - patient was previously not getting IV lfuids because he kept ripping them out However, patient is now compliant with peripheral line and has been getting the IV fluids patient denies cp/sob stable vital signs Objective Vitals Vital Signs Date Time Temp Pulse Resp B/P Pulse Ox O2 Delivery O2 Flow Rate FiO2 10/18/16 05:43 98.1 85 20 131/82 98 10/17/16 17:58 97.8 78 16 126/69 95 I/O 10/17/16 10/17/16 10/17/16 10/18/16 10/18/16 10/18/16 07:00 15:00 23:00 07:00 15:00 23:00 Intake Total 240 ml 720 ml 960 ml 1126 ml 960 ml Balance 240 ml 720 ml 960 ml 1126 ml 960 ml Intake Oral 240 ml 720 ml 960 ml 960 ml IV Total 1126 ml # Voids 1 1 1 3 Result Diagram: 10/16/16 0752 10/18/16 0943 Imaging Last Impressions Renal Ultrasound 10/12/16 0000 Signed Impressions: Service Date/Time: October 12:44 - CONCLUSION: 1. No evidence of hydronephrosis. 2. Benign right renal cyst measuring 2.5 cm. Trey Bang MD Objective Remarks GENERAL: lying in bed. Pt alert. NAD CARDIOVASCULAR: Regular rate and rhythm without murmurs, gallops, or rubs. RESPIRATORY: Breath sounds equal bilaterally. No accessory muscle use. GASTROINTESTINAL: Abdomen soft, non-tender, nondistended. MUSCULOSKELETAL: No cyanosis, or edema. PSYCHIATRIC: Alert and oriented x 3. Pleasant and cooperative. No overt signs of anxiety/depression. Speech clear and fluent. Procedures none Medications and IVs Current Medications Medications (Trade) Dose Ordered Sig/Alyssa Route Start Time Stop Time Status Last Admin (Ativan) 1 mg Q6H PRN PO 10/07/16 16:15 10/16/16 21:50 (Ativan Inj) 1 mg Q6H PRN IM 10/07/16 16:15 (Benadryl) 50 mg HS PRN PO 10/07/16 16:15 10/16/16 21:49 (Tylenol) 650 mg Q4H PRN PO 10/07/16 16:15 10/11/16 21:00 (Milk Of Magnesia Liq) 30 ml DAILY PRN PO 10/07/16 16:15 (Mag-Al Plus Susp Liq) 30 ml Q6H PRN PO 10/07/16 16:15 (Cogentin) 1 mg Q12H PRN PO 10/07/16 16:15 (Cogentin Inj) 1 mg Q12H PRN IM 10/07/16 16:15 (Lipitor) 10 mg HS PO 10/07/16 21:00 10/17/16 21:38 (Sinemet 25-100 Mg) 1 tab Q12HR PO 10/07/16 21:00 10/18/16 10:04 (Lotrimin 1% Cream) 1 applic DAILY TOPICAL 10/08/16 09:00 10/16/16 09:00 (Vistaril) 25 mg HS PO 10/07/16 21:00 10/17/16 21:37 (Antivert) 12.5 mg TID PRN PO 10/07/16 16:15 (Aristocort 0.1% Cream) 1 applic DAILY TOPICAL 10/08/16 09:00 10/18/16 10:04 (Pill Splitter) 1 ea UNSCH PRN OTHER 10/07/16 16:45 (Zoloft) 50 mg DAILY PO 10/09/16 09:00 10/18/16 10:04 (Catapres) 0.1 mg Q6H PRN PO 10/08/16 18:15 (D50w (Vial) Inj) 50 ml UNSCH PRN IV 10/08/16 18:15 Glucagon 1 mg 1 mg UNSCH PRN OTHER 10/08/16 18:15 (NS 1000 ml Inj) 1,000 ml @ 125 mls/hr Q8H IV 10/12/16 15:15 10/18/16 03:45 (Lactinex) 1 tab BID PO 10/13/16 21:00 10/18/16 10:04 (SEROquel) 100 mg HS PO 10/18/16 21:00 (SEROquel) 25 mg HS PO 10/18/16 21:00 A/P Problem List: (1) Adjustment disorder ICD Code: F43.20 Status: Acute (2) Major neurocognitive disorder ICD Code: F03.90 Status: Acute (3) Light-headedness ICD Code: R42 Status: Acute (4) GEOVANY (acute kidney injury) ICD Code: N17.9 Status: Acute Assessment and Plan 66-year-old male with past medical history significant for depression, hypertension, diabetes and dyslipidemia who came in with complaints of dizziness and was found to have low B12 and parkinsonian symptoms. Patient started on Sinemet and B12. Patient voiced thoughts of harming himself and burning down the hospital. Patient now admitted to the psychiatric unit and hospitalist service is consulted for medical management. GEOVANY on likely CKD. Kidney indices improved with IVF. Unknown kidney indices baseline. Creatinine increased to 1.52 (from 1.37) 10/12/16. Encourage fluids. Consider nephrology consult.A1c noted to be 5.6. Metformin held US kidney reviewed benign right renal cyst noted Nephrology consulted. Initially creatinine trending down, however on 10/17 creatinine elevated up to 1.6 since the patient was not compliant with IV fluids. As per RN report the patient kept ripping the peripheral line out. . 10/18 Creatinine trending down from 1.66 to 1.48, continue IV fluids. Continue to monitor BMP and continue to monitor nephrology recommendations. Adjustment disorder Depression Management per psychiatric team Parkinsonian symptoms B12 deficiency Patient evaluated by neurology and started on Sinemet and B12 supplementation. Continue Hypertension Hyperlipidemia Continue patient's home dose of Lipitor 10 mg by mouth daily Clonidine when necessary with parameters BP stable Hypokalemia. Replaced. Monitor K level and replace as need. 10/18 K level normal but trending down will give 20 mew of potassium to avoid hypokalemia. Diabetes mellitus controlled Hold metformin due to GEOVANY Accu-Chek ISS Hemoglobin A1c, 5.6. Blood sugars stable Lightheadedness - Resolved DVT prophylaxis -Patient is ambulatory Problem Qualifiers (1) Adjustment disorder: Qualified Code: F43.20 - Adjustment disorder, unspecified type Alvin Garzon MD Oct 18, 2016 14:26
[2016-10-18] MEDS ORDERED: POTASSIUM CHLORIDE 20 MEQ CONTROLLED RELEASE TAB PO ONE (14:30)
[2016-10-18 18:00] VITALS: BP 142/80; PULSE 80; RESP 20; TEMP 98.4; O2SAT 93
[2016-10-18] MEDS: hydrOXYzine PAMOATE 25 MG CAP PO SCH (20:27)
[2016-10-18] MEDS: ATORVASTATIN 10 MG TAB PO SCH (20:27)
[2016-10-18] MEDS: QUEtiapine FUMARATE 100 MG TAB PO SCH (20:27)
[2016-10-18] MEDS: LORazepam 1 MG TAB PO PRN ×2 (20:27→22:50)
[2016-10-18] MEDS ORDERED: QUEtiapine FUMARATE 25 MG TAB PO SCH (21:00)
[2016-10-18] MEDS: LORazepam 2 MG/ML VIAL IM PRN (22:18)
[2016-10-19] MEDS: INSULIN ASPART SUPPLEMENTAL SCALE SQ SCH ×4 (05:36→21:00)
[2016-10-19 06:13] VITALS: BP 150/73; PULSE 79; RESP 16; TEMP 97.8; O2SAT 97
[2016-10-19] MEDS: SODIUM CHLOR 0.9% 1000 ML INJ 1,000 ML IV SCH ×3 (07:15→21:36)
[2016-10-19] MEDS: SERTRALINE HCL 50 MG TAB PO SCH (08:44)
[2016-10-19] MEDS: LACTOBACILLUS ACIDOPHILUS TAB PO SCH ×2 (08:44→21:34)
[2016-10-19] MEDS: CARBIDOPA/LEVODOPA 25 MG/100 MG TAB PO SCH ×2 (08:44→21:34)
[2016-10-19] MEDS: CLOTRIMAZOLE 1% CREAM 15 GM TOPICAL SCH (09:00)
[2016-10-19] MEDS: TRIAMCINOLONE ACETONIDE 0.1% CREAM 15 GM TOPICAL SCH (09:00)
--- NOTE | 2016-10-19 09:15 | HHI.NPPN ---
Subjective Renal Failure: Chronic, Acute, Stage III History of Present Illness 66-year-old male with past medical history of depression and psychosis, hypertension, diabetes mellitus, hyperlipidemia, chronic kidney disease, was admitted to the psych department because of worsening psychosis. I was called to see the patient for elevated BUN and creatinine. The patient denies any known history of renal disease. We do not have any previous labs for him except the first creatinine we have on September 29 was 1.7 and it has improved to 1.3. Additional Remarks Patient is alert, no SOB, not in distress. Objective Data Data 10/18/16 10/19/16 19:00 07:00 Intake Total 1920 ml 240 ml Output Total 111 ml Balance 1920 ml 129 ml Intake Oral 1920 ml 240 ml Output Urine Total 111 ml # Voids 3 1 # Bowel Movements 1 Vital Signs Date Time Temp Pulse Resp B/P Pulse Ox O2 Delivery O2 Flow Rate FiO2 10/19/16 06:13 97.8 79 16 150/73 97 10/18/16 18:00 98.4 80 20 142/80 93 -: 10/16/16 0752 10/18/16 0943 Physical Exam General Appearance: No Acute Distress, Comfortable Eyes Eye Exam: Pupils Equal Pulmonary Resp Exam: Clear Bilaterally, Breath Sounds Equal, No Distress Cardiology CV Exam: Regular, Normal Sinus Rhythm Gastrointestinal/Abdomen GI Exam: Soft, Non-Tender, Bowel Sounds Present Extremeties Extremities Exam: No Edema Neurologic Neuro Exam: Alert, Awake Assessment/Plan Assessment Summary: GEOVANY/Acute Renal Failure, CKD Stage III Problem List: (1) Depression (2) Adjustment disorder (3) Major neurocognitive disorder (4) GEOVANY (acute kidney injury) Plan Patient has now some improvement in the Creatinine and it is 1.2, BP is stable. Avoid Nephrotoxins, Possibly has chronic kidney disease. Encourage oral intake. Problem Qualifiers (1) Adjustment disorder: Qualified Code: F43.20 - Adjustment disorder, unspecified type Madhuri Lott MD Oct 19, 2016 09:15
--- NOTE | 2016-10-19 13:54 | HHI.PR ---
Subjective Remarks Patient denies any complaints denies fevers/chills denies cp./sob Objective Vitals Vital Signs Date Time Temp Pulse Resp B/P Pulse Ox O2 Delivery O2 Flow Rate FiO2 10/19/16 06:13 97.8 79 16 150/73 97 10/18/16 18:00 98.4 80 20 142/80 93 I/O 10/18/16 10/18/16 10/18/16 10/19/16 10/19/16 10/19/16 07:00 15:00 23:00 07:00 15:00 23:00 Intake Total 1126 ml 1920 ml 240 ml 480 ml Output Total 111 ml Balance 1126 ml 1920 ml 129 ml 480 ml Intake Oral 1920 ml 240 ml 480 ml IV Total 1126 ml Output Urine Total 111 ml # Voids 3 3 1 # Bowel Movements 1 Result Diagram: 10/16/16 0752 10/18/16 0943 Imaging Last Impressions Renal Ultrasound 10/12/16 0000 Signed Impressions: Service Date/Time: October 12:44 - CONCLUSION: 1. No evidence of hydronephrosis. 2. Benign right renal cyst measuring 2.5 cm. Trey Bang MD Objective Remarks GENERAL: lying in bed. Pt alert. NAD CARDIOVASCULAR: Regular rate and rhythm without murmurs, gallops, or rubs. RESPIRATORY: Breath sounds equal bilaterally. No accessory muscle use. GASTROINTESTINAL: Abdomen soft, non-tender, nondistended. MUSCULOSKELETAL: No cyanosis, or edema. PSYCHIATRIC: Alert and oriented x 3. Pleasant and cooperative. No overt signs of anxiety/depression. Speech clear and fluent. Procedures none Medications and IVs Current Medications Medications (Trade) Dose Ordered Sig/Alyssa Route Start Time Stop Time Status Last Admin (Ativan) 1 mg Q6H PRN PO 10/07/16 16:15 10/18/16 22:50 (Ativan Inj) 1 mg Q6H PRN IM 10/07/16 16:15 10/18/16 22:18 (Benadryl) 50 mg HS PRN PO 10/07/16 16:15 10/16/16 21:49 (Tylenol) 650 mg Q4H PRN PO 10/07/16 16:15 10/11/16 21:00 (Milk Of Magnesia Liq) 30 ml DAILY PRN PO 10/07/16 16:15 (Mag-Al Plus Susp Liq) 30 ml Q6H PRN PO 10/07/16 16:15 (Cogentin) 1 mg Q12H PRN PO 10/07/16 16:15 (Cogentin Inj) 1 mg Q12H PRN IM 10/07/16 16:15 (Lipitor) 10 mg HS PO 10/07/16 21:00 10/18/16 20:27 (Sinemet 25-100 Mg) 1 tab Q12HR PO 10/07/16 21:00 10/19/16 08:44 (Lotrimin 1% Cream) 1 applic DAILY TOPICAL 10/08/16 09:00 10/19/16 09:00 (Vistaril) 25 mg HS PO 10/07/16 21:00 10/18/16 20:27 (Antivert) 12.5 mg TID PRN PO 10/07/16 16:15 (Aristocort 0.1% Cream) 1 applic DAILY TOPICAL 10/08/16 09:00 10/19/16 09:00 (Pill Splitter) 1 ea UNSCH PRN OTHER 10/07/16 16:45 (Zoloft) 50 mg DAILY PO 10/09/16 09:00 10/19/16 08:44 (Catapres) 0.1 mg Q6H PRN PO 10/08/16 18:15 (D50w (Vial) Inj) 50 ml UNSCH PRN IV 10/08/16 18:15 Glucagon 1 mg 1 mg UNSCH PRN OTHER 10/08/16 18:15 (NS 1000 ml Inj) 1,000 ml @ 125 mls/hr Q8H IV 10/12/16 15:15 10/18/16 03:45 (Lactinex) 1 tab BID PO 10/13/16 21:00 10/19/16 08:44 (SEROquel) 100 mg HS PO 10/18/16 21:00 10/18/16 20:27 (SEROquel) 25 mg HS PO 10/18/16 21:00 10/18/16 20:26 A/P Problem List: (1) Adjustment disorder ICD Code: F43.20 Status: Acute (2) Major neurocognitive disorder ICD Code: F03.90 Status: Acute (3) Light-headedness ICD Code: R42 Status: Acute (4) GEOVANY (acute kidney injury) ICD Code: N17.9 Status: Acute Assessment and Plan 66-year-old male with past medical history significant for depression, hypertension, diabetes and dyslipidemia who came in with complaints of dizziness and was found to have low B12 and parkinsonian symptoms. Patient started on Sinemet and B12. Patient voiced thoughts of harming himself and burning down the hospital. Patient now admitted to the psychiatric unit and hospitalist service is consulted for medical management. GEOVANY on likely CKD. Kidney indices improved with IVF. Unknown kidney indices baseline. Creatinine increased to 1.52 (from 1.37) 10/12/16. Encourage fluids. Consider nephrology consult.A1c noted to be 5.6. Metformin held US kidney reviewed benign right renal cyst noted Nephrology consulted. Initially creatinine trending down, however on 10/17 creatinine elevated up to 1.6 since the patient was not compliant with IV fluids. As per RN report the patient kept ripping the peripheral line out. . 10/19Creatinine trending down from 1.66 to 1.48, continue IV fluids. Continue to monitor BMP and continue to monitor nephrology recommendations. Adjustment disorder Depression Management per psychiatric team Parkinsonian symptoms B12 deficiency Patient evaluated by neurology and started on Sinemet and B12 supplementation. Continue Hypertension Hyperlipidemia Continue patient's home dose of Lipitor 10 mg by mouth daily Clonidine when necessary with parameters BP stable Hypokalemia. Replaced. Monitor K level and replace as need. 10/18 K level normal but trending down will give 20 mew of potassium to avoid hypokalemia. Diabetes mellitus controlled Hold metformin due to GEOVANY Accu-Chek ISS Hemoglobin A1c, 5.6. Blood sugars stable Lightheadedness - Resolved DVT prophylaxis -Patient is ambulatory Problem Qualifiers (1) Adjustment disorder: Qualified Code: F43.20 - Adjustment disorder, unspecified type Alvin Garzon MD Oct 19, 2016 13:54
[2016-10-19 14:48] LABS: BICARBONATE 29.2 MEQ/L (21.0-32.0); POTASSIUM 3.7 MEQ/L (3.5-5.1)
--- NOTE | 2016-10-19 17:34 | HHI.PYPN ---
Subjective Remarks Patient seen for follow, chart review. As per nursing report patient last evening was noted to be upset and shook one of the nurses. Patient continues to require assistance and feeding. Patient was taken to mental health Court today which petition for involuntary hospitalization was granted. Patient was found lying in hospital bed, calm and cooperative interview. Patient continues to be noted to be thought blocking and/or internally preoccupied. Patient noted to be guarded and required a lot of prompting to be able to have patient respond to questions. Patient states that he had been feeling good, denies feeling sad or depressed, but does recall feeling upset last evening stating "general things going around... World issues". When asked if patient was continued to having any visual hallucinations patient states that his friends and roommates were sitting there pointing toward the corner of the room. Patient denied having some tremor of the left arm and asked if she was feeling restless patient stated yes. Patient this time denies any SI or HI, auditory hallucinations but continues to have visual hallucinations. Review of Systems Except as stated in HPI: all other systems reviewed are Neg Objective Alert: Yes [place]: Person, Place, Date Mood: Other ("good") Affect: Blunted (blunted with occasional smiling) Memory Intact: Comment (Remains impaired) Hallucinations: Visual (reports seeing friends and roommates), Other (denied any perceptual disturbances at this time but also to be responding to internal stimuli) Delusions: No Delusion Type: Other (No delusions) Suicidal: Ideation (denies at this time) Homicidal: Ideation (No HI) Insight/Judgment Limited insight, fair impulse control, limited judgment Labs Labs reviewed. Test 10/19/16 13:35 Sodium Level 138 MEQ/L Potassium Level 3.7 MEQ/L Chloride Level 102 MEQ/L Carbon Dioxide Level 29.2 MEQ/L Anion Gap 7 MEQ/L Blood Urea Nitrogen 16 MG/DL Creatinine 1.46 MG/DL Estimat Glomerular Filtration 48 ML/MIN Rate Random Glucose 104 MG/DL Calcium Level 9.3 MG/DL Vitals/IOs Vital Signs Date Time Temp Pulse Resp B/P Pulse Ox O2 Delivery O2 Flow Rate FiO2 10/19/16 06:13 97.8 79 16 150/73 97 Intake and Output 10/18/16 10/18/16 10/19/16 08:00 16:00 00:00 Intake Total 1846 ml 1200 ml 240 ml Output Total 111 ml Balance 1846 ml 1200 ml 129 ml Assessment & Plan Problem List: (1) Major neurocognitive disorder ICD Code: F03.90 Assessment & Plan Patient this time continues to have visual hallucinations, difficulty with ADLs such as feeding self which she requires assistance with. Patient noted to have some restlessness which may be due to akathisia secondary to neuroleptics. Will decrease quetiapine back to 100 mg at bedtime to see if akathisia resolves. Patient will continue to be monitored for mood and behavior. Patient to continue recommendations as per primary medical team. Continue monitoring renal function. If patient continues to have episodes of behavioral dysregulation and may require one-to-one observation again. Monitor for medication response adverse drug reactions. Discharge planning in progress. Family is pending decision on placement or home with supervision. Justification for Cont. Inpt. Patient risk for decompensation if at lower level of care Discharge Planning In progress Request HC Surrog/Guard Advoc?: No Abdon Mario MD Oct 19, 2016 17:34
[2016-10-19 18:00] VITALS: BP 155/74; PULSE 78; RESP 17; TEMP 98.1; O2SAT 94
[2016-10-19] MEDS: QUEtiapine FUMARATE 100 MG TAB PO SCH (21:34)
[2016-10-19] MEDS: ATORVASTATIN 10 MG TAB PO SCH (21:34)
[2016-10-19] MEDS: hydrOXYzine PAMOATE 25 MG CAP PO SCH (21:35)
[2016-10-20] MEDS: LORazepam 1 MG TAB PO PRN (00:10)
[2016-10-20] MEDS: INSULIN ASPART SUPPLEMENTAL SCALE SQ SCH ×4 (05:36→21:00)
[2016-10-20] MEDS: SODIUM CHLOR 0.9% 1000 ML INJ 1,000 ML IV SCH ×2 (05:36→15:15)
[2016-10-20 06:05] VITALS: BP 125/68; PULSE 96; RESP 14; TEMP 97.5; O2SAT 97
[2016-10-20] MEDS: CARBIDOPA/LEVODOPA 25 MG/100 MG TAB PO SCH ×2 (08:54→21:15)
[2016-10-20] MEDS: TRIAMCINOLONE ACETONIDE 0.1% CREAM 15 GM TOPICAL SCH (08:54)
[2016-10-20] MEDS: SERTRALINE HCL 50 MG TAB PO SCH (08:54)
[2016-10-20] MEDS: LACTOBACILLUS ACIDOPHILUS TAB PO SCH ×2 (08:54→21:15)
[2016-10-20] MEDS: CLOTRIMAZOLE 1% CREAM 15 GM TOPICAL SCH (09:00)
--- NOTE | 2016-10-20 09:27 | HHI.PYPN ---
Subjective Remarks Patient seen for follow up, chart reviewed. After discussion with nursing staff , patient yesterday noted to be confused, noted with tremors yesterday. Patient seen lying on hospital bed, calm and cooperative with interview. Patient continues to be noted to have internal preoccupation but able to engage in interview. Patient noted to have less tremor today. Patient stated that he has been feeling a little cold states "it's the meds". She reports having rested well last evening and also mentions that he had been visited by his mother and father and friends. Patient reports feeling "a little depressed" but not able to elaborate. Patient denies any suicidal ideation states "I want to be alive". Patient attended a new appears to be responding to internal stimuli but does not elaborate even when asked. Review of Systems Except as stated in HPI: all other systems reviewed are Neg Objective Alert: Yes [place]: Person, Place, Date Mood: Other ("good") Affect: Blunted (blunted with occasional smiling) Memory Intact: Comment (Remains impaired) Hallucinations: Visual (reports seeing friends and parents last evening but during interview appears to be responding to internal stimuli but did not elaborate), Other (denied any perceptual disturbances at this time but also to be responding to internal stimuli) Delusions: No Delusion Type: Other (No delusions) Suicidal: Ideation (denies at this time) Homicidal: Ideation (No HI) Insight/Judgment Poor insight, impulse control is fair and judgment is fair Labs Labs reviewed. Test 10/19/16 13:35 Sodium Level 138 MEQ/L Potassium Level 3.7 MEQ/L Chloride Level 102 MEQ/L Carbon Dioxide Level 29.2 MEQ/L Anion Gap 7 MEQ/L Blood Urea Nitrogen 16 MG/DL Creatinine 1.46 MG/DL Estimat Glomerular Filtration 48 ML/MIN Rate Random Glucose 104 MG/DL Calcium Level 9.3 MG/DL Vitals/IOs Vital Signs Date Time Temp Pulse Resp B/P Pulse Ox O2 Delivery O2 Flow Rate FiO2 10/20/16 06:05 97.5 96 14 125/68 97 Intake and Output 10/19/16 10/19/16 10/20/16 08:00 16:00 00:00 Intake Total 480 ml 1020 ml 540 ml Balance 480 ml 1020 ml 540 ml Assessment & Plan Problem List: (1) Major neurocognitive disorder ICD Code: F03.90 Assessment & Plan Patient at this time continues to experience visual hallucinations, continues to be noted to be confused and requires encouragement and prompting to eat his meals. Patient able to eat on his own but requires reminding that he has to eat. Patient was noted with some probable akathisia last evening which quetiapine was lowered back down to 100 mg at bedtime and this morning noted to have much less tremors and restlessness. We'll continue on quetiapine 100 mg at bedtime. Family currently discussing discharge options with team. Patient will continue to require supervision post discharge. Justification for Cont. Inpt. Patient at risk for further decompensation if at lower level of care. Discharge Planning In progress Request HC Surrog/Guard Advoc?: No Abdon Mario MD Oct 20, 2016 09:27
--- NOTE | 2016-10-20 12:37 | HHI.PR ---
Subjective Remarks As per RN patient still having hallucinations patient is eating better but needs encouragement to eat patient denies cp/sob or any other complaints Objective Vitals Vital Signs Date Time Temp Pulse Resp B/P Pulse Ox O2 Delivery O2 Flow Rate FiO2 10/20/16 06:05 97.5 96 14 125/68 97 10/19/16 18:00 98.1 78 17 155/74 94 I/O 10/19/16 10/19/16 10/19/16 10/20/16 10/20/16 10/20/16 07:00 15:00 23:00 07:00 15:00 23:00 Intake Total 1500 ml 540 ml Balance 1500 ml 540 ml Intake Oral 1500 ml 540 ml # Voids 1 2 4 5 Result Diagram: 10/16/16 0752 10/19/16 1335 Objective Remarks GENERAL: lying in bed. Pt alert. NAD CARDIOVASCULAR: Regular rate and rhythm without murmurs, gallops, or rubs. RESPIRATORY: Breath sounds equal bilaterally. No accessory muscle use. GASTROINTESTINAL: Abdomen soft, non-tender, nondistended. MUSCULOSKELETAL: No cyanosis, or edema. PSYCHIATRIC: Alert and oriented x 3. Pleasant and cooperative. No overt signs of anxiety/depression. Speech clear and fluent. Procedures none Medications and IVs Current Medications Medications (Trade) Dose Ordered Sig/Alyssa Route Start Time Stop Time Status Last Admin (Ativan) 1 mg Q6H PRN PO 10/07/16 16:15 10/20/16 00:10 (Ativan Inj) 1 mg Q6H PRN IM 10/07/16 16:15 10/18/16 22:18 (Benadryl) 50 mg HS PRN PO 10/07/16 16:15 10/16/16 21:49 (Tylenol) 650 mg Q4H PRN PO 10/07/16 16:15 10/11/16 21:00 (Milk Of Magnesia Liq) 30 ml DAILY PRN PO 10/07/16 16:15 (Mag-Al Plus Susp Liq) 30 ml Q6H PRN PO 10/07/16 16:15 (Cogentin) 1 mg Q12H PRN PO 10/07/16 16:15 (Cogentin Inj) 1 mg Q12H PRN IM 10/07/16 16:15 (Lipitor) 10 mg HS PO 10/07/16 21:00 10/19/16 21:34 (Sinemet 25-100 Mg) 1 tab Q12HR PO 10/07/16 21:00 10/20/16 08:54 (Lotrimin 1% Cream) 1 applic DAILY TOPICAL 10/08/16 09:00 10/19/16 09:00 (Vistaril) 25 mg HS PO 10/07/16 21:00 10/19/16 21:35 (Antivert) 12.5 mg TID PRN PO 10/07/16 16:15 (Aristocort 0.1% Cream) 1 applic DAILY TOPICAL 10/08/16 09:00 10/20/16 08:54 (Pill Splitter) 1 ea UNSCH PRN OTHER 10/07/16 16:45 (Zoloft) 50 mg DAILY PO 10/09/16 09:00 10/20/16 08:54 (Catapres) 0.1 mg Q6H PRN PO 10/08/16 18:15 (D50w (Vial) Inj) 50 ml UNSCH PRN IV 10/08/16 18:15 Glucagon 1 mg 1 mg UNSCH PRN OTHER 10/08/16 18:15 (NS 1000 ml Inj) 1,000 ml @ 125 mls/hr Q8H IV 10/12/16 15:15 10/20/16 05:36 (Lactinex) 1 tab BID PO 10/13/16 21:00 10/20/16 08:54 (SEROquel) 100 mg HS PO 10/18/16 21:00 10/19/16 21:34 A/P Problem List: (1) Adjustment disorder ICD Code: F43.20 Status: Acute (2) Major neurocognitive disorder ICD Code: F03.90 Status: Acute (3) Light-headedness ICD Code: R42 Status: Acute (4) GEOVANY (acute kidney injury) ICD Code: N17.9 Status: Acute Assessment and Plan 66-year-old male with past medical history significant for depression, hypertension, diabetes and dyslipidemia who came in with complaints of dizziness and was found to have low B12 and parkinsonian symptoms. Patient started on Sinemet and B12. Patient voiced thoughts of harming himself and burning down the hospital. Patient now admitted to the psychiatric unit and hospitalist service is consulted for medical management. GEOVANY on likely CKD. Kidney indices improved with IVF. Unknown kidney indices baseline. Creatinine increased to 1.52 (from 1.37) 10/12/16. Encourage fluids. Consider nephrology consult.A1c noted to be 5.6. Metformin held US kidney reviewed benign right renal cyst noted Nephrology consulted. Initially creatinine trending down, however on 10/17 creatinine elevated up to 1.6 since the patient was not compliant with IV fluids. As per RN report the patient kept ripping the peripheral line out. . 10/19Creatinine trending down from 1.66 to 1.48, continue IV fluids. Continue to monitor BMP and continue to monitor nephrology recommendations. 10/20 Continue to monitor BMP. fu nephrology recommendations. Continue IVF for now. Adjustment disorder Depression Management per psychiatric team Parkinsonian symptoms B12 deficiency Patient evaluated by neurology and started on Sinemet and B12 supplementation. Continue Hypertension Hyperlipidemia Continue patient's home dose of Lipitor 10 mg by mouth daily Clonidine when necessary with parameters BP stable Hypokalemia. Replaced. Monitor K level and replace as need. 10/18 K level normal but trending down will give 20 mew of potassium to avoid hypokalemia. Diabetes mellitus controlled Hold metformin due to GEOVANY Accu-Chek ISS Hemoglobin A1c, 5.6. Blood sugars stable Lightheadedness - Resolved DVT prophylaxis -Patient is ambulatory Problem Qualifiers (1) Adjustment disorder: Qualified Code: F43.20 - Adjustment disorder, unspecified type Alvin Garzon MD Oct 20, 2016 12:37
--- NOTE | 2016-10-20 16:59 | HHI.NPPN ---
Subjective Renal Failure: Chronic, Acute, Stage III History of Present Illness 66-year-old male with past medical history of depression and psychosis, hypertension, diabetes mellitus, hyperlipidemia, chronic kidney disease, was admitted to the psych department because of worsening psychosis. I was called to see the patient for elevated BUN and creatinine. The patient denies any known history of renal disease. We do not have any previous labs for him except the first creatinine we have on September 29 was 1.7 and it has improved to 1.3. Additional Remarks Patient is alert, no SOB, not in distress, remain confused, and pulling lines. Objective Data Data 10/19/16 10/20/16 19:00 07:00 Intake Total 1500 ml 540 ml Balance 1500 ml 540 ml Intake Oral 1500 ml 540 ml # Voids 2 9 Vital Signs Date Time Temp Pulse Resp B/P Pulse Ox O2 Delivery O2 Flow Rate FiO2 10/20/16 06:05 97.5 96 14 125/68 97 10/19/16 18:00 98.1 78 17 155/74 94 -: 10/16/16 0752 10/19/16 1335 Physical Exam General Appearance: No Acute Distress, Comfortable Eyes Eye Exam: Pupils Equal Pulmonary Resp Exam: Clear Bilaterally, Breath Sounds Equal, No Distress Cardiology CV Exam: Regular, Normal Sinus Rhythm Gastrointestinal/Abdomen GI Exam: Soft, Non-Tender, Bowel Sounds Present Extremeties Extremities Exam: No Edema Neurologic Neuro Exam: Alert, Awake Assessment/Plan Assessment Summary: GEOVANY/Acute Renal Failure, CKD Stage III Problem List: (1) Depression (2) Adjustment disorder (3) Major neurocognitive disorder (4) GEOVANY (acute kidney injury) Plan Patient is not eating muc, pulling the IV cannula. Avoid Nephrotoxins, Possibly has chronic kidney disease. Encourage oral intake. Creatinine increase to1.6. Problem Qualifiers (1) Adjustment disorder: Qualified Code: F43.20 - Adjustment disorder, unspecified type Madhuri Lott MD Oct 20, 2016 16:59
[2016-10-20 17:31] VITALS: BP 151/83; PULSE 97; RESP 16; TEMP 97.6; O2SAT 96
[2016-10-20] MEDS: LORazepam 2 MG/ML VIAL IM PRN (18:10)
[2016-10-20] MEDS: QUEtiapine FUMARATE 100 MG TAB PO SCH (21:15)
[2016-10-20] MEDS: hydrOXYzine PAMOATE 25 MG CAP PO SCH (21:15)
[2016-10-20] MEDS: ATORVASTATIN 10 MG TAB PO SCH (21:15)
[2016-10-21 06:13] VITALS: BP 136/82; PULSE 82; RESP 18; TEMP 97.7; O2SAT 94
[2016-10-21] MEDS: INSULIN ASPART SUPPLEMENTAL SCALE SQ SCH ×4 (06:31→21:00)
[2016-10-21] MEDS: SODIUM CHLOR 0.9% 1000 ML INJ 1,000 ML IV SCH ×3 (06:33→16:21)
[2016-10-21] MEDS: CLOTRIMAZOLE 1% CREAM 15 GM TOPICAL SCH (09:00)
[2016-10-21] MEDS: CARBIDOPA/LEVODOPA 25 MG/100 MG TAB PO SCH ×2 (09:29→21:56)
[2016-10-21] MEDS: LORazepam 1 MG TAB PO PRN (09:29)
[2016-10-21] MEDS: LACTOBACILLUS ACIDOPHILUS TAB PO SCH ×2 (09:29→21:56)
[2016-10-21] MEDS: SERTRALINE HCL 50 MG TAB PO SCH (09:29)
[2016-10-21] MEDS: TRIAMCINOLONE ACETONIDE 0.1% CREAM 15 GM TOPICAL SCH (09:30)
--- NOTE | 2016-10-21 09:41 | HHI.PYPN ---
Subjective Remarks Patient seen for follow-up, chart reviewed. As per discussion with nursing staff patient has had no behavioral issues overnight although did need to have IV put back in after having pulled it out and continues to require assistance to eat. Patient found lying in hospital bed watching television. Patient noted to be slightly more interactive with interview today. Patient states they 've been feeling "good" denies feeling sad or depressed and denies having any SI. Patient oriented to person and year only. Patient denies any visual hallucinations and reports last time being couple of days ago although during interview patient presented to be looking around and likely internally preoccupied. Patient states that he would like to go home to be with his family. Review of Systems Except as stated in HPI: all other systems reviewed are Neg Objective Alert: Yes [place]: Person, Place, Date Mood: Other ("good") Affect: Blunted (blunted with occasional smiling) Memory Intact: Comment (Remains impaired) Hallucinations: Visual (denies at this time), Other (denied any perceptual disturbances at this time but also to be responding to internal stimuli) Delusions: No Delusion Type: Other (No delusions) Suicidal: Ideation (denies at this time) Homicidal: Ideation (No HI) Insight/Judgment Poor insight, impulse control and judgment Vitals/IOs Vital Signs Date Time Temp Pulse Resp B/P Pulse Ox O2 Delivery O2 Flow Rate FiO2 10/21/16 06:13 97.7 82 18 136/82 94 Intake and Output 10/20/16 10/20/16 10/20/16 07:59 15:59 23:59 Intake Total 1400 ml 240 ml Balance 1400 ml 240 ml Assessment & Plan Problem List: (1) Major neurocognitive disorder ICD Code: F03.90 Assessment & Plan Estimated LOS: 3-5 days. Patient at this time noted to be less confused able to maintain or engage in interview. Patient with less behavioral dyscontrol and reacting less to internal stimuli. Patient may continue to have visual hallucinations but denies at this time. Patient to continue current regimen discharge planning with family to exhibit services as patient will require supervision post discharge. Recommendations as per primary medical team. Legal Support Analyst attempted to call son as they were wanting to speak with scientific technical writer for an update. Will attempt to reach son again today. Justification for Cont. Inpt. Patient at risk for further decompensation if it lower level of care Discharge Planning In progress Request HC Surrog/Guard Advoc?: No Abdon Mario MD Oct 21, 2016 09:41
--- NOTE | 2016-10-21 13:39 | HHI.PR ---
Subjective Remarks Follow up adjustment disorder, neurocognitive disorder and GEOVANY. Patient resting in bed slow to response verbally- per nurse this is consistent with his baseline Appear to be in no acute distress Patient does appear to be reacting to internal stimuli Objective Vitals Vital Signs Date Time Temp Pulse Resp B/P Pulse Ox O2 Delivery O2 Flow Rate FiO2 10/21/16 06:13 97.7 82 18 136/82 94 10/20/16 17:31 97.6 97 16 151/83 96 I/O 10/20/16 10/20/16 10/20/16 10/21/16 10/21/16 10/21/16 07:00 15:00 23:00 07:00 15:00 23:00 Intake Total 1400 ml 240 ml 0 ml 360 ml Balance 1400 ml 240 ml 0 ml 360 ml Intake Oral 1400 ml 240 ml 0 ml 360 ml # Voids 5 5 1 Result Diagram: 10/19/16 1335 Imaging Last Impressions Renal Ultrasound 10/12/16 0000 Signed Impressions: Service Date/Time: October 12:44 - CONCLUSION: 1. No evidence of hydronephrosis. 2. Benign right renal cyst measuring 2.5 cm. Trey Bang MD Objective Remarks GENERAL: lying in bed. Pt alert. NAD CARDIOVASCULAR: Regular rate and rhythm without murmurs, gallops, or rubs. RESPIRATORY: Breath sounds equal bilaterally. No accessory muscle use. GASTROINTESTINAL: Abdomen soft, non-tender, nondistended. MUSCULOSKELETAL: No cyanosis, or edema. PSYCHIATRIC: Awake and alert. speech is clear seems to have a delay ( per nurse this is patient's baseline) No evidence of focal deficits. Procedures none A/P Problem List: (1) Adjustment disorder ICD Code: F43.20 - Adjustment disorder, unspecified Status: Acute (2) Major neurocognitive disorder ICD Code: F03.90 - Unspecified dementia without behavioral disturbance Status: Acute (3) Light-headedness ICD Code: R42 - Dizziness and giddiness Status: Acute (4) GEOVANY (acute kidney injury) ICD Code: N17.9 - Acute kidney failure, unspecified Status: Acute Assessment and Plan 66-year-old male with past medical history significant for depression, hypertension, diabetes and dyslipidemia who came in with complaints of dizziness and was found to have low B12 and parkinsonian symptoms. Patient started on Sinemet and B12. Patient voiced thoughts of harming himself and burning down the hospital. Patient now admitted to the psychiatric unit and hospitalist service is consulted for medical management. GEOVANY on likely CKD. Kidney indices improved with IVF. Unknown kidney indices baseline. Creatinine increased to 1.52 (from 1.37) 10/12/16. Encourage fluids. Consider nephrology consult.A1c noted to be 5.6. Metformin held US kidney reviewed benign right renal cyst noted Nephrology consulted. Initially creatinine trending down, however on 10/17 creatinine elevated up to 1.6 since the patient was not compliant with IV fluids. As per RN report the patient kept ripping the peripheral line out. . 10/19Creatinine trending down from 1.66 to 1.48, continue IV fluids. Continue to monitor BMP and continue to monitor nephrology recommendations. repeat BMP pending. patient also followed by nephrology appreciate recommendations. Continue IVF decrease rate to 75ml/h Adjustment disorder Depression Management per psychiatric team Parkinsonian symptoms B12 deficiency Patient evaluated by neurology and started on Sinemet and B12 supplementation. Continue Hypertension Hyperlipidemia Continue patient's home dose of Lipitor 10 mg by mouth daily Clonidine when necessary with parameters BP stable Hypokalemia. Replaced. Monitor K level and replace as need. Magnesium 2.0 on 10/17/16 Diabetes mellitus controlled Hold metformin due to GEOVANY Accu-Chek ISS Hemoglobin A1c, 5.6. Blood sugars stable Lightheadedness - Resolved DVT prophylaxis - encourage ambulation Discussed with patient, nursing and Dr. Jewell Problem Qualifiers (1) Adjustment disorder: Valery Darnell Oct 21, 2016 13:38
[2016-10-21 18:10] VITALS: BP 142/81; PULSE 94; RESP 18; O2SAT 97
[2016-10-21] MEDS: QUEtiapine FUMARATE 100 MG TAB PO SCH (21:56)
[2016-10-21] MEDS: ATORVASTATIN 10 MG TAB PO SCH (21:56)
[2016-10-21] MEDS: hydrOXYzine PAMOATE 25 MG CAP PO SCH (21:56)
[2016-10-22 05:24] VITALS: BP 136/77; PULSE 88; RESP 17; TEMP 99.2; O2SAT 94
[2016-10-22] MEDS: SODIUM CHLOR 0.9% 1000 ML INJ 1,000 ML IV SCH ×3 (05:41→22:31)
[2016-10-22] MEDS: INSULIN ASPART SUPPLEMENTAL SCALE SQ SCH ×4 (06:35→21:00)
[2016-10-22 07:32] LABS: BICARBONATE 27.2 MEQ/L (21.0-32.0); POTASSIUM 3.9 MEQ/L (3.5-5.1)
[2016-10-22] MEDS: TRIAMCINOLONE ACETONIDE 0.1% CREAM 15 GM TOPICAL SCH (08:00)
[2016-10-22] MEDS: CARBIDOPA/LEVODOPA 25 MG/100 MG TAB PO SCH ×2 (08:00→21:00)
[2016-10-22] MEDS: SERTRALINE HCL 50 MG TAB PO SCH (08:00)
[2016-10-22] MEDS: LACTOBACILLUS ACIDOPHILUS TAB PO SCH ×2 (08:00→21:00)
[2016-10-22] MEDS: CLOTRIMAZOLE 1% CREAM 15 GM TOPICAL SCH (08:01)
[2016-10-22] MEDS ORDERED: diphenhydrAMINE HCL 25 MG CAP PO ONE (14:45)
[2016-10-22] MEDS ORDERED: diphenhydrAMINE HCL 25 MG CAP PO PRN (14:45)
--- NOTE | 2016-10-22 15:03 | HHI.PR ---
Subjective Remarks Follow up adjustment disorder, neurocognitive disorder and GEOVANY. Patient resting in bed continues to have slow verbal response rash noted through out anterior and posterior trunk, top of head and bilateral legs. Patient endorses itching- consistent with contact dermatitis Objective Vitals Vital Signs Date Time Temp Pulse Resp B/P (MAP) Pulse Ox O2 Delivery O2 Flow Rate FiO2 10/22/16 05:24 99.2 88 17 136/77 (96) 94 10/21/16 18:10 94 18 142/81 (101) 97 I/O 10/21/16 10/21/16 10/21/16 10/22/16 10/22/16 10/22/16 07:00 15:00 23:00 07:00 15:00 23:00 Intake Total 0 ml 360 ml 840 ml 450 ml 480 ml Output Total 2 ml Balance 0 ml 360 ml 838 ml 450 ml 480 ml Intake Oral 0 ml 360 ml 840 ml 480 ml IV Total 450 ml Output Urine Total 2 ml Stool Total 0 ml # Voids 1 3 Result Diagram: 10/22/16 0702 Objective Remarks GENERAL: lying in bed. Pt alert. NAD SKIN: erythematous raised rash noted through out anterior and posterior trunk, top of head and bilateral legs- consistent with contact dermatitis CARDIOVASCULAR: Regular rate and rhythm without murmurs, gallops, or rubs. RESPIRATORY: Breath sounds equal bilaterally. No accessory muscle use. GASTROINTESTINAL: Abdomen soft, non-tender, nondistended. MUSCULOSKELETAL: No cyanosis, or edema. PSYCHIATRIC: Awake and alert. speech is delayed but clear( per nurse this is patient's baseline) Procedures none A/P Problem List: (1) Adjustment disorder ICD Code: F43.20 - Adjustment disorder, unspecified Status: Acute (2) Major neurocognitive disorder ICD Code: F03.90 - Unspecified dementia without behavioral disturbance Status: Acute (3) Light-headedness ICD Code: R42 - Dizziness and giddiness Status: Acute (4) GEOVANY (acute kidney injury) ICD Code: N17.9 - Acute kidney failure, unspecified Status: Acute Assessment and Plan 66-year-old male with past medical history significant for depression, hypertension, diabetes and dyslipidemia who came in with complaints of dizziness and was found to have low B12 and parkinsonian symptoms. Patient started on Sinemet and B12. Patient voiced thoughts of harming himself and burning down the hospital. Patient now admitted to the psychiatric unit and hospitalist service is consulted for medical management. GEOVANY on likely CKD. Kidney indices improved with IVF. Unknown kidney indices baseline. Creatinine increased to 1.52 (from 1.37) 10/12/16. Encourage fluids. Consider nephrology consult.A1c noted to be 5.6. Metformin held US kidney reviewed benign right renal cyst noted Nephrology consulted. Initially creatinine trending down, however on 10/17 creatinine elevated up to 1.6 since the patient was not compliant with IV fluids. As per RN report the patient kept ripping the peripheral line out. . 10/19Creatinine trending down from 1.66 to 1.48, continue IV fluids. Continue to monitor BMP and continue to monitor nephrology recommendations. repeat BMP creatinine increased to 1.55 after decreasing IV fluids will increase rate to 125ml/h patient also followed by nephrology appreciate recommendations. Recheck BMP in AM Adjustment disorder Depression Management per psychiatric team Parkinsonian symptoms B12 deficiency Patient evaluated by neurology and started on Sinemet and B12 supplementation. Continue Hypertension Hyperlipidemia Continue patient's home dose of Lipitor 10 mg by mouth daily Clonidine when necessary with parameters BP stable Hypokalemia. Replaced. Monitor K level and replace as need. Magnesium 2.0 on 10/17/16 Diabetes mellitus controlled Hold metformin due to GEOVANY Accu-Chek ISS Hemoglobin A1c, 5.6. Blood sugars stable Lightheadedness - Resolved Contact dermatitis- Benadryl 25 mg by mouth every 6 hours for itching, prednisone 40 mg by mouth daily 4 days Hypoallergenic sheets ordered DVT prophylaxis - encourage ambulation Discussed with patient, nursing and Dr. Jewell Problem Qualifiers (1) Adjustment disorder: Valery Darnell Oct 22, 2016 15:03
[2016-10-22] MEDS: predniSONE 20 MG TAB PO SCH (15:54)
[2016-10-22] MEDS: ACETAMINOPHEN 325 MG TAB PO PRN (17:02)
[2016-10-22] MEDS: LORazepam 1 MG TAB PO PRN (17:02)
[2016-10-22 18:02] VITALS: BP 148/86; PULSE 102; RESP 18; TEMP 98.3; O2SAT 97
--- NOTE | 2016-10-22 18:21 | HHI.PYPN ---
Subjective Remarks Patient seen for follow-up, chart reviewed. After discussion with nursing staff , patient oriented to person, place and date; eating only with assistance. Patient found lying down watching television, calm and cooperative with interview. Patient states feeling "good", noted to be scratching his head throughout interview and admits to have pruritis. Patient shows tech writer rash on chest, and back. Patient denies depressive mood, denies SI and VH but noted to be internally preoccupied and looking around room. Patient encourged to get out of bed, sit on chair and walk today which he agreed to. Review of Systems Except as stated in HPI: all other systems reviewed are Neg Objective Alert: Yes [place]: Person, Place, Date Mood: Other ("good") Affect: Blunted (blunted with occasional smiling) Memory Intact: Comment (Remains impaired) Hallucinations: Visual (denies at this time), Other (denied any perceptual disturbances at this time but also to be responding to internal stimuli) Delusions: No Delusion Type: Other (No delusions) Suicidal: Ideation (denies at this time) Homicidal: Ideation (No HI) Insight/Judgment Poor insight impulse control and judgement Labs Labs reviewed. Test 10/22/16 07:02 Blood Urea Nitrogen 18 MG/DL Creatinine 1.55 MG/DL Random Glucose 104 MG/DL Calcium Level 8.9 MG/DL Sodium Level 138 MEQ/L Potassium Level 3.9 MEQ/L Chloride Level 104 MEQ/L Carbon Dioxide Level 27.2 MEQ/L Anion Gap 7 MEQ/L Estimat Glomerular Filtration Rate 45 ML/MIN Vitals/IOs Vital Signs Date Time Temp Pulse Resp B/P (MAP) Pulse Ox O2 Delivery O2 Flow Rate FiO2 10/22/16 18:02 98.3 102 18 148/86 (106) 97 Intake and Output 10/22/16 10/22/16 10/23/16 08:00 16:00 00:00 Intake Total 450 ml 480 ml 480 ml Balance 450 ml 480 ml 480 ml Assessment & Plan Problem List: (1) Major neurocognitive disorder ICD Codes: F03.90 - Unspecified dementia without behavioral disturbance Status: Acute Assessment & Plan Patient noted to have slightly less thought blocking, continues to be internally preoccupied likely continuing to have visual hallucinations but denies when asked. Patient no longer to have noted to have tremor which may have been due to EPS from neuroleptic but ceased upon decreased dose. Patient has not had any behavioral dyscontrol recently but continues to require encouragement and assistance to eat and get out of bed. Continue current treatment, discharge planning in progress. Justification for Cont. Inpt. At risk for further decompensation if at lower level of care. Discharge Planning In progress Request HC Surrog/Guard Advoc?: No Abdon Mario MD Oct 22, 2016 18:20
[2016-10-22] MEDS: QUEtiapine FUMARATE 100 MG TAB PO SCH (21:00)
[2016-10-22] MEDS: hydrOXYzine PAMOATE 25 MG CAP PO SCH (21:00)
[2016-10-22] MEDS: ATORVASTATIN 10 MG TAB PO SCH (21:00)
[2016-10-23] MEDS: LORazepam 2 MG/ML VIAL IM PRN ×2 (04:55→15:24)
[2016-10-23] MEDS ORDERED: LORazepam 2 MG/ML VIAL ONE (05:02)
[2016-10-23] MEDS ORDERED: LORazepam 2 MG/ML VIAL IM SCH (05:15)
[2016-10-23] MEDS: INSULIN ASPART SUPPLEMENTAL SCALE SQ SCH ×4 (06:26→21:00)
[2016-10-23 06:30] VITALS: BP 122/68; PULSE 92; RESP 18; O2SAT 97
[2016-10-23 07:14] LABS: MEAN CELL VOLUME 87.1 FL (80.0-100.0); MEAN CORPUSCULAR HEMOGLOBIN 30.7 PG (27.0-34.0); MEAN CORPUSCULAR HGB CONC 35.2 % (32.0-36.0); PLATELET COUNT 190 TH/MM3 (150-450); RED BLOOD COUNT 4.47 MIL/MM3 (4.50-5.90); RED CELL DISTRIBUTION WIDTH 12.9 % (11.6-17.2); REVIEW FLAG FINAL; WHITE BLOOD COUNT 8.6 TH/MM3 (4.0-11.0)
[2016-10-23 07:17] LABS: BICARBONATE 25.2 MEQ/L (21.0-32.0); POTASSIUM 3.8 MEQ/L (3.5-5.1)
[2016-10-23] MEDS: CLOTRIMAZOLE 1% CREAM 15 GM TOPICAL SCH (09:00)
[2016-10-23] MEDS: LACTOBACILLUS ACIDOPHILUS TAB PO SCH ×2 (09:06→21:00)
[2016-10-23] MEDS: SERTRALINE HCL 50 MG TAB PO SCH (09:06)
[2016-10-23] MEDS: CARBIDOPA/LEVODOPA 25 MG/100 MG TAB PO SCH ×2 (09:07→21:00)
[2016-10-23] MEDS: SODIUM CHLOR 0.9% 1000 ML INJ 1,000 ML IV SCH ×2 (09:07→17:21)
[2016-10-23] MEDS: predniSONE 20 MG TAB PO SCH (09:07)
--- NOTE | 2016-10-23 14:11 | HHI.PYPN ---
Subjective Remarks Patient seen for follow, chart review. After discussion with nursing staff patient last evening had become startle with nursing came in to check in on him which she then jumped up showed the nurse which a jodee pinto had to be called in order to safely de-escalate the patient. Patient was provided with 2 mg Ativan at that time for agitation and was later found to be asleep this morning. Patient was a lying on hospital bed asleep and couldn't episode interview this morning due to s sedative effect from recent medications. Patient's family requested a meeting with psychiatry and medical team to discuss current patient' s medical status which meeting will be held tomorrow at 10 AM for the same. Review of Systems Except as stated in HPI: all other systems reviewed are Neg Objective Alert: Yes [place]: Person Mood: Other (patient was sedated) Affect: Other (sedated) Memory Intact: Comment (unable to assess) Hallucinations: Other (patient is sedated and unable to assess at this time) Delusions: No Delusion Type: Other (patient is sedated and unable to assess at this time) Suicidal: Ideation (patient is sedated unable to assess at this time) Homicidal: Ideation (patient is sedated unable to assess at this time) Insight/Judgment Patient sedated unable to assess at this time Labs Labs reviewed. Test 10/23/16 06:45 White Blood Count 8.6 TH/MM3 Red Blood Count 4.47 MIL/MM3 Hemoglobin 13.7 GM/DL Hematocrit 39.0 % Mean Corpuscular Volume 87.1 FL Mean Corpuscular Hemoglobin 30.7 PG Mean Corpuscular Hemoglobin Concent 35.2 % Red Cell Distribution Width 12.9 % Platelet Count 190 TH/MM3 Mean Platelet Volume 8.6 FL Blood Urea Nitrogen 24 MG/DL Creatinine 1.29 MG/DL Random Glucose 160 MG/DL Calcium Level 8.5 MG/DL Sodium Level 136 MEQ/L Potassium Level 3.8 MEQ/L Chloride Level 104 MEQ/L Carbon Dioxide Level 25.2 MEQ/L Anion Gap 7 MEQ/L Estimat Glomerular Filtration Rate 55 ML/MIN Vitals/IOs Vital Signs Date Time Temp Pulse Resp B/P (MAP) Pulse Ox O2 Delivery O2 Flow Rate FiO2 10/23/16 06:30 92 18 122/68 (86) 97 10/22/16 18:02 98.3 Intake and Output 10/23/16 10/23/16 10/24/16 08:00 16:00 00:00 Intake Total 1375 ml 720 ml Balance 1375 ml 720 ml Assessment & Plan Problem List: (1) Major neurocognitive disorder ICD Codes: F03.90 - Unspecified dementia without behavioral disturbance Status: Acute Assessment & Plan Patient this time continues to have disorganization, continues to be noted to be responding to internal stimuli, continues to require assistance for meals. Will order EEG to rule out seizures, discussed the medical team with patient's current medical condition with possibility of lumbar tap to rule out any other etiology to explain patient's current symptomatology. Medical team will also consult neuropsychological testing. Family meeting with medical team tomorrow at 10 AM. Justification for Cont. Inpt. Patient at risk for further decompensation if at a lower level of care Discharge Planning In progress Request HC Surrog/Guard Advoc?: Abdon Segovia MD Oct 23, 2016 14:11
[2016-10-23 18:00] VITALS: BP 147/78; PULSE 96; RESP 16; TEMP 98.4; O2SAT 95
--- NOTE | 2016-10-23 18:08 | HHI.PR ---
Review/Management Diagnosis Parkinsonism-- Vitamin B12 deficiency possible complex-partial seizures Plan I agree with jeanne repeat EEG tomorrow Repeat MRI brain consider lumbar puncture after repeat EEG Diagnosis/Plan: Subjective Subjective Comments Patient has become less responsive and less communicative Active Medications Current Medications Medications (Trade) Dose Ordered Sig/Alyssa Route Start Time Stop Time Status Last Admin (Ativan) 1 mg Q6H PRN PO 10/07/16 16:15 10/22/16 17:02 (Ativan Inj) 1 mg Q6H PRN IM 10/07/16 16:15 10/23/16 15:24 (Benadryl) 50 mg HS PRN PO 10/07/16 16:15 10/16/16 21:49 (Tylenol) 650 mg Q4H PRN PO 10/07/16 16:15 10/22/16 17:02 (Milk Of Magnesia Liq) 30 ml DAILY PRN PO 10/07/16 16:15 10/22/16 17:02 (Mag-Al Plus Susp Liq) 30 ml Q6H PRN PO 10/07/16 16:15 (Cogentin) 1 mg Q12H PRN PO 10/07/16 16:15 (Cogentin Inj) 1 mg Q12H PRN IM 10/07/16 16:15 (Lipitor) 10 mg HS PO 10/07/16 21:00 10/22/16 21:00 (Sinemet 25-100 Mg) 1 tab Q12HR PO 10/07/16 21:00 10/23/16 09:07 (Lotrimin 1% Cream) 1 applic DAILY TOPICAL 10/08/16 09:00 10/23/16 09:00 (Vistaril) 25 mg HS PO 10/07/16 21:00 10/22/16 21:00 (Antivert) 12.5 mg TID PRN PO 10/07/16 16:15 (Pill Splitter) 1 ea UNSCH PRN OTHER 10/07/16 16:45 (Zoloft) 50 mg DAILY PO 10/09/16 09:00 10/23/16 09:06 (Catapres) 0.1 mg Q6H PRN PO 10/08/16 18:15 (D50w (Vial) Inj) 50 ml UNSCH PRN IV 10/08/16 18:15 (Glucagon Inj) 1 mg UNSCH PRN OTHER 10/08/16 18:15 (NovoLOG SUPPLEMENTAL SCALE) 1 ACHS SLIDING SCALE SQ 10/08/16 21:00 Sodium Chloride 1,000 ml @ 125 mls/hr Q8H IV 10/12/16 15:15 10/23/16 17:21 (Lactinex) 1 tab BID PO 10/13/16 21:00 10/23/16 09:06 (SEROquel) 100 mg HS PO 10/18/16 21:00 10/22/16 21:00 (Benadryl) 25 mg Q6H PRN PO 10/22/16 14:45 (Deltasone) 40 mg DAILY PO 10/22/16 16:00 10/26/16 15:59 10/23/16 09:07 Levetriacetam 100 ml @ 400 mls/hr Q12HR IV 10/23/16 21:00 Allergies Allergies Coded Allergies penicillin G (Unverified Allergy, Severe, 10/17/16) Exam I&O / VS 10/23/16 10/23/16 10/24/16 15:00 23:00 07:00 Intake Total 720 ml Balance 720 ml Intake Oral 720 ml Vital Signs Date Time Temp Pulse Resp B/P (MAP) Pulse Ox O2 Delivery O2 Flow Rate FiO2 10/23/16 06:30 92 18 122/68 (86) 97 Exam Comments alert, does not follow commands. No spontaneous speech. CN intact MOTOR--no focal deficits, occasional myoclonus BUE Objective Micro and Labs Laboratory Tests Test 10/23/16 06:45 White Blood Count 8.6 Red Blood Count 4.47 Hemoglobin 13.7 Hematocrit 39.0 Mean Corpuscular Volume 87.1 Mean Corpuscular Hemoglobin 30.7 Mean Corpuscular Hemoglobin Concent 35.2 Red Cell Distribution Width 12.9 Platelet Count 190 Mean Platelet Volume 8.6 Blood Urea Nitrogen 24 Creatinine 1.29 Random Glucose 160 Calcium Level 8.5 Sodium Level 136 Potassium Level 3.8 Chloride Level 104 Carbon Dioxide Level 25.2 Anion Gap 7 Estimat Glomerular Filtration Rate 55 Diagnostic Tests EEG---intermittent sharp activity Miguelito Branham PhD Oct 23, 2016 18:08
--- NOTE | 2016-10-23 18:39 | HHI.PR ---
Subjective Remarks Deferred entry - patient seen at 12:25 am As per RN patient has been declining his functioning intermittent periods of lucency patient does not answer questions Objective Vitals Vital Signs Date Time Temp Pulse Resp B/P (MAP) Pulse Ox O2 Delivery O2 Flow Rate FiO2 10/23/16 06:30 92 18 122/68 (86) 97 I/O 10/22/16 10/22/16 10/22/16 10/23/16 10/23/16 10/23/16 06:59 14:59 22:59 06:59 14:59 22:59 Intake Total 450 ml 480 ml 1350 ml 1375 ml 720 ml 994 ml Balance 450 ml 480 ml 1350 ml 1375 ml 720 ml 994 ml Intake Oral 480 ml 960 ml 720 ml IV Total 450 ml 390 ml 1375 ml 994 ml # Voids 2 2 Result Diagram: 10/23/16 0645 10/23/16 0645 Imaging Last Impressions Renal Ultrasound 10/12/16 0000 Signed Impressions: Service Date/Time: October 12:44 - CONCLUSION: 1. No evidence of hydronephrosis. 2. Benign right renal cyst measuring 2.5 cm. Trey Bang MD Objective Remarks GENERAL: lying in bed. Pt alert. non verbal CARDIOVASCULAR: Regular rate and rhythm without murmurs, gallops, or rubs. RESPIRATORY: Breath sounds equal bilaterally. No accessory muscle use. GASTROINTESTINAL: Abdomen soft, non-tender, nondistended. MUSCULOSKELETAL: No cyanosis, or edema. PSYCHIATRIC: awake, does not follow commands.Non verbal. Procedures none Medications and IVs Current Medications Medications (Trade) Dose Ordered Sig/Alyssa Route Start Time Stop Time Status Last Admin (Ativan) 1 mg Q6H PRN PO 10/07/16 16:15 10/22/16 17:02 (Ativan Inj) 1 mg Q6H PRN IM 10/07/16 16:15 10/23/16 15:24 (Benadryl) 50 mg HS PRN PO 10/07/16 16:15 10/16/16 21:49 (Tylenol) 650 mg Q4H PRN PO 10/07/16 16:15 10/22/16 17:02 (Milk Of Magnesia Liq) 30 ml DAILY PRN PO 10/07/16 16:15 10/22/16 17:02 (Mag-Al Plus Susp Liq) 30 ml Q6H PRN PO 10/07/16 16:15 (Cogentin) 1 mg Q12H PRN PO 10/07/16 16:15 (Cogentin Inj) 1 mg Q12H PRN IM 10/07/16 16:15 (Lipitor) 10 mg HS PO 10/07/16 21:00 10/22/16 21:00 (Sinemet 25-100 Mg) 1 tab Q12HR PO 10/07/16 21:00 10/23/16 09:07 (Lotrimin 1% Cream) 1 applic DAILY TOPICAL 10/08/16 09:00 10/23/16 09:00 (Vistaril) 25 mg HS PO 10/07/16 21:00 10/22/16 21:00 (Antivert) 12.5 mg TID PRN PO 10/07/16 16:15 (Pill Splitter) 1 ea UNSCH PRN OTHER 10/07/16 16:45 (Zoloft) 50 mg DAILY PO 10/09/16 09:00 10/23/16 09:06 (Catapres) 0.1 mg Q6H PRN PO 10/08/16 18:15 (D50w (Vial) Inj) 50 ml UNSCH PRN IV 10/08/16 18:15 (Glucagon Inj) 1 mg UNSCH PRN OTHER 10/08/16 18:15 (NovoLOG SUPPLEMENTAL SCALE) 1 ACHS SLIDING SCALE SQ 10/08/16 21:00 Sodium Chloride 1,000 ml @ 125 mls/hr Q8H IV 10/12/16 15:15 10/23/16 17:21 (Lactinex) 1 tab BID PO 10/13/16 21:00 10/23/16 09:06 (SEROquel) 100 mg HS PO 10/18/16 21:00 10/22/16 21:00 (Benadryl) 25 mg Q6H PRN PO 10/22/16 14:45 (Deltasone) 40 mg DAILY PO 10/22/16 16:00 10/26/16 15:59 10/23/16 09:07 Levetriacetam 100 ml @ 400 mls/hr Q12HR IV 10/23/16 21:00 A/P Problem List: (1) Adjustment disorder ICD Code: F43.20 - Adjustment disorder, unspecified Status: Acute (2) Major neurocognitive disorder ICD Code: F03.90 - Unspecified dementia without behavioral disturbance Status: Acute (3) Light-headedness ICD Code: R42 - Dizziness and giddiness Status: Acute (4) GEOVANY (acute kidney injury) ICD Code: N17.9 - Acute kidney failure, unspecified Status: Acute Assessment and Plan 66-year-old male with past medical history significant for depression, hypertension, diabetes and dyslipidemia who came in with complaints of dizziness and was found to have low B12 and parkinsonian symptoms. Patient started on Sinemet and B12. Patient voiced thoughts of harming himself and burning down the hospital. Patient now admitted to the psychiatric unit and hospitalist service is consulted for medical management. GEOVANY on likely CKD. Kidney indices improved with IVF. Unknown kidney indices baseline. Creatinine increased to 1.52 (from 1.37) 10/12/16. Encourage fluids. Consider nephrology consult.A1c noted to be 5.6. Metformin held US kidney reviewed benign right renal cyst noted Nephrology consulted. Initially creatinine trending down, however on 10/17 creatinine elevated up to 1.6 since the patient was not compliant with IV fluids. As per RN report the patient kept ripping the peripheral line out. . 10/19Creatinine trending down from 1.66 to 1.48, continue IV fluids. Continue to monitor BMP and continue to monitor nephrology recommendations. 10/20 Continue to monitor BMP. fu nephrology recommendations. Continue IVF for now. 10/23 Creatinine trending down - Creatinine down to 1.29, continue IV fluids. Adjustment disorder Depression Management per psychiatric team Parkinsonian symptoms B12 deficiency Cognitive decline Patient evaluated by neurology and started on Sinemet and B12 supplementation. C Case discussed extensively with Dr Mario. Patient presents a fast cognitive decline. Differential diagnosis include parkinson's dementia, Frontotemporal dementia, demential with lewy body, seizures. Will order EEG, HIV test, and consider lumbar puncture. Hypertension Hyperlipidemia Continue patient's home dose of Lipitor 10 mg by mouth daily Clonidine when necessary with parameters BP stable Hypokalemia. Replaced. Monitor K level and replace as need. K normal. Continue to monitor BMP and replace as needed. Diabetes mellitus controlled Hold metformin due to GEOVANY Accu-Chek ISS Hemoglobin A1c, 5.6. Blood sugars stable Lightheadedness - Resolved Dysphagia Patient is pocketing food in mouth and not eating or swallowing. Will order a swallowing eval. DVT prophylaxis -Patient is ambulatory Problem Qualifiers (1) Adjustment disorder: Alvin Garzon MD Oct 23, 2016 18:39
--- NOTE | 2016-10-23 19:04 | MG ---
cc: ZENY RINALDI MD Lab No: Date: 10/23/2016 Age: Sex: M Race: DATE OF [address] Mario. MEDICAL HISTORY ? MEDICATIONS Not available. DESCRIPTION The EEG recording is generally slow in the delta and theta range with polymorphic delta throughout the recording. There is excessive movement artifacts. There is a breach rhythm at T5. Hyperventilation was not done. Photic station did not elicit a driving response. There were no electrographic seizures or epileptiform discharges seen during the recording. INTERPRETATION This is an awake EEG with generalized slowing.The generalized slowing may indicate a moderate encephalopathy that may be related to medications, metabolic derangements or hypoxic effect. Absence of electrographic seizures or epileptiform discharges does not rule out diagnosis of epilepsy. Clinical correlation is recommended. Zeny Rinaldi MD RGO/KK /4:41 PM /6:55 PM MTDD
[2016-10-23 22:08] LABS: APTT (PATIENT) 27.7 SEC (24.3-30.1); PROTHROMBIN TIME - PATIENT 11.4 SEC (9.8-11.6)
[2016-10-23] MEDS: hydrOXYzine PAMOATE 25 MG CAP PO SCH (23:55)
[2016-10-23] MEDS: ATORVASTATIN 10 MG TAB PO SCH (23:55)
[2016-10-23] MEDS: QUEtiapine FUMARATE 100 MG TAB PO SCH (23:55)
[2016-10-23] MEDS: levETIRAcetam 1000 MG INJ 100 ML IV SCH (23:56)
--- NOTE | 2016-10-24 00:04 | HHI.PR ---
Addendum to Inpatient Note Addendum Reason: Additional Documentation Additional Information Subjective: Night Float team paged for Megan at 22:00 to assess patient admitted for psychosis On arrival, patient was awake and alert but only oriented to person Nursing staff noted that his mental status has steadily been declining with occasional agitation, decrease in following commands Denied headache, chest pain, SOB, abdominal pain Objective: Vitals at arrival were HR 85-90, BP 145/80, RR 16-20, O2 sat 95-97 on 2L NC Had not required O2 previously CV: normal rate, regular rhythm with no m/r/g Lungs: CTAB, no wheezes, rales or rhonchi Abd: soft, nontender and nondistended Neuro: Patient was able to state his name, inaccurately state day of week. Poorly cooperated in neurological exam, was able to move bilateral upper extremities, moved both feet, but unable to assess muscle strength/sensation EOMI, PERRL Assessment/Plan: Suspicion for stoke unlikely Patient was already schedule to have MRI later in the evening by primary team, nursing staff encouraged to proceed with this. Troponin, EKG, D Dimer, q4hr Neuro checks and O2 ordered by residents Nursing staff instructed to inform Primary team of the new developments/labs ordered. Seen and discussed with Nahun Saldivar MD R1 Oct 24, 2016 00:04
[2016-10-24] MEDS: SODIUM CHLOR 0.9% 1000 ML INJ 1,000 ML IV SCH ×3 (02:54→17:21)
--- NOTE | 2016-10-24 06:17 | RADRPT ---
EXAM DATE/TIME: 10/24/2016 05:48 [facility] COMPARISON: CHEST SINGLE AP, October 06, 2016, 11:48. INDICATIONS : Short of breath. MEDICAL HISTORY : None. SURGICAL HISTORY : None. ENCOUNTER: Initial ACUITY: 1 day PAIN SCORE: 0/10 LOCATION: Bilateral chest FINDINGS: A single view of the chest demonstrates minimal basilar atelectasis. No effusion. No pneumothorax. He art size normal. CONCLUSION: 1. Minimal basilar atelectasis. Kit Cates MD on October 24, 2016 at 6:15 Board Certified Radiologist. This report was verified electronically.
[2016-10-24 06:20] VITALS: BP 169/79; PULSE 87; RESP 18; TEMP 97.4; O2SAT 95
[2016-10-24] MEDS: INSULIN ASPART SUPPLEMENTAL SCALE SQ SCH ×3 (07:00→16:00)
[2016-10-24] MEDS: levETIRAcetam 1000 MG INJ 100 ML IV SCH (08:41)
[2016-10-24] MEDS: CARBIDOPA/LEVODOPA 25 MG/100 MG TAB PO SCH (08:42)
[2016-10-24] MEDS: LACTOBACILLUS ACIDOPHILUS TAB PO SCH (08:42)
[2016-10-24] MEDS: SERTRALINE HCL 50 MG TAB PO SCH (08:42)
[2016-10-24] MEDS: CLOTRIMAZOLE 1% CREAM 15 GM TOPICAL SCH (08:42)
[2016-10-24] MEDS: predniSONE 20 MG TAB PO SCH (08:42)
[2016-10-24] MEDS: LORazepam 2 MG/ML VIAL IM PRN ×3 (08:53→17:29)
[2016-10-24] MEDS ORDERED: GADODIAMIDE PF 287 MG/ML 20 ML VIAL (for RAD MRI) IVCONTRAST ONE (09:51)
--- NOTE | 2016-10-24 10:50 | RADRPT ---
EXAM DATE/TIME: 10/24/2016 10:11 [facility] COMPARISON: CHEST SINGLE AP, October 24, 2016, 5:48. INDICATIONS : Short of breath and elevated d-dimer. DOSE: 8.1 mCi Tc99m MAA IV 0.71 mCi Tc99m DTPA aerosol MEDICAL HISTORY : Smoking history. SURGICAL HISTORY : Inguinal hernia repair. Head surgery. ENCOUNTER: Initial ACUITY: 1 day PAIN SCALE: 2/10 LOCATION: Bilateral chest TECHNIQUE: Following five minutes of tidal breathing of DTPA aerosol, planar images of the lungs were performed in eight projections. The patient was then injected with MAA, and eight-view perfusion scan was perf ormed. FINDINGS: There is a homogeneous pattern of aerosol delivery to the periphery of both lungs. No focal ventilat ory defects are seen. The perfusion lung scan demonstrates a homogenous pattern of uptake in both lungs. No segmental or s ubsegmental defects are seen. CONCLUSION: Low probability scan for pulmonary embolus. Yonas Mckeon MD on October 24, 2016 at 10:47 Board Certified Radiologist. This report was verified electronically.
--- NOTE | 2016-10-24 11:01 | HHI.PYPN ---
Subjective Remarks Patient seen for follow, chart review. Patient had neurology follow-up as EEG was done yesterday. As per neurology note patient with possible complexpartial seizures recommendations ordered a repeat EEG MRI and lumbar puncture. Medical team also recommended HIV testing as well as swallowing evaluation. Patient was started on Keppra for seizures. Patient found this morning lying on hospital bed isslightly lethargic but was able to respond slightly improved response time. Patient was able to recall that his had visited him yesterday and that he even feeling "okay". Workforce Services Representative met with family today in a family meeting along with hospitalist and treatment team which update on patient 's current workup and medical conditions were discussed at length. Review of Systems Except as stated in HPI: all other systems reviewed are Neg Objective Alert: Yes [place]: Person Mood: Other ("okay") Affect: Other (lethargic) Memory Intact: Comment (unable to assess) Hallucinations: Other (patient is lethargic and unable to assess at this time) Delusions: No Delusion Type: Other (patient is lethargic and unable to assess at this time) Suicidal: Ideation (patient is lethargic unable to assess at this time) Homicidal: Ideation (patient is lethargic unable to assess at this time) Insight/Judgment Poor insight, impulse control and judgment Labs Labs reviewed. Test 10/23/16 21:14 Prothrombin Time 11.4 SEC Prothromb Time International Ratio 1.0 RATIO Activated Partial Thromboplast Time 27.7 SEC D-Dimer Quantitative (PE/DVT) 1.54 MG/L FEU Troponin I LESS THAN 0.02 NG/ML Vitamin B12 Level 347 PG/ML Vitals/IOs Vital Signs Date Time Temp Pulse Resp B/P (MAP) Pulse Ox O2 Delivery O2 Flow Rate FiO2 10/24/16 06:20 97.4 87 18 169/79 (109) 95 Intake and Output 10/24/16 10/24/16 10/25/16 08:00 16:00 00:00 Intake Total 1475 ml Balance 1475 ml Assessment & Plan Problem List: (1) Major neurocognitive disorder ICD Codes: F03.90 - Unspecified dementia without behavioral disturbance Status: Acute Assessment & Plan Patient at this time continues to be confused and disorganized and responding to internal stimuli. Had EEG done yesterday which showed possible poor complexpartial seizures and was put on Keppra for seizure control. Neurology will continue to follow and make recommendations as stated in history of present illness. Patient will continue workup and Sinemet, sertraline, and quetiapine will be down titrated for now to better evaluate his current symptoms that is likely secondary to ongoing seizures. Discharge planning in progress Justification for Cont. Inpt. At risk for further decompensation if lower level of care Request HC Surrog/Guard Advoc?: No Abdon Mario MD Oct 24, 2016 11:01
--- NOTE | 2016-10-24 11:03 | RADRPT ---
EXAM DATE/TIME: 10/24/2016 09:34 [facility] COMPARISON: MRI BRAIN W & W/O CONTRAST, October 07, 2016, 7:54. INDICATIONS : Seizures. Encephalopathy. CONTRAST: 18 cc Omniscan (gadodiamide) IV MEDICAL HISTORY : Diabetes mellitus type 2. TBI. SURGICAL HISTORY : Umbilical hernia repair. ENCOUNTER: Subsequent ACUITY: 4-6 days PAIN SCORE: 0/10 LOCATION: head. TECHNIQUE: Multiplanar, multisequence MRI of the brain was performed both prior to and following the administrat ion of paramagnetic contrast. FINDINGS: CEREBRUM: The ventricles are normal for age. No evidence of midline shift, mass lesion, hemorrhage or acute in farction. No extraaxial fluid collections are seen. The pituitary gland and suprasellar cistern are normal in configuration. WHITE MATTER: No significant signal abnormalities are seen in the white matter. POSTERIOR FOSSA: The cerebellum and brainstem are intact. The 4th ventricle is midline. The cerebellopontine angle is unremarkable. The cerebellar tonsils are normal in position. DIFFUSION IMAGING: No focal areas of restricted diffusion are seen. No evidence of acute infarction. EXTRACRANIAL: The visualized portions of the orbits and paranasal sinuses are unremarkable. POST-CONTRAST: No abnormal areas of parenchymal or dural enhancement. No evidence of blood-brain barrier breakdown. CONCLUSION: 1. Negative exam. No acute intracranial process to explain current clinical symptoms. 2. No change from prior. Yonas Mckeon MD on October 24, 2016 at 10:58 Board Certified Radiologist. This report was verified electronically.
[2016-10-24 12:47] VITALS: O2SAT 95
--- NOTE | 2016-10-24 13:03 | HHI.PR ---
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 Work up thus far negative, but I feel LP is indicated to check for infectious, inflammatory conditions and also check 14- 3-3 protein to asses for possible Ministerio-Creutzfeldt disease. Plan Lumbar Puncture in Radiology Diagnosis/Plan: Subjective Subjective Comments No acute events reported Active Medications Current Medications Medications (Trade) Dose Ordered Sig/Alyssa Route Start Time Stop Time Status Last Admin (Ativan) 1 mg Q6H PRN PO 10/07/16 16:15 10/22/16 17:02 (Ativan Inj) 1 mg Q6H PRN IM 10/07/16 16:15 10/24/16 08:53 (Benadryl) 50 mg HS PRN PO 10/07/16 16:15 10/16/16 21:49 (Tylenol) 650 mg Q4H PRN PO 10/07/16 16:15 10/22/16 17:02 (Milk Of Magnesia Liq) 30 ml DAILY PRN PO 10/07/16 16:15 10/22/16 17:02 (Mag-Al Plus Susp Liq) 30 ml Q6H PRN PO 10/07/16 16:15 (Cogentin) 1 mg Q12H PRN PO 10/07/16 16:15 (Cogentin Inj) 1 mg Q12H PRN IM 10/07/16 16:15 (Lipitor) 10 mg HS PO 10/07/16 21:00 10/23/16 23:55 (Lotrimin 1% Cream) 1 applic DAILY TOPICAL 10/08/16 09:00 10/23/16 09:00 (Vistaril) 25 mg HS PO 10/07/16 21:00 10/23/16 23:55 (Antivert) 12.5 mg TID PRN PO 10/07/16 16:15 (Pill Splitter) 1 ea UNSCH PRN OTHER 10/07/16 16:45 (Catapres) 0.1 mg Q6H PRN PO 10/08/16 18:15 (D50w (Vial) Inj) 50 ml UNSCH PRN IV 10/08/16 18:15 (Glucagon Inj) 1 mg UNSCH PRN OTHER 10/08/16 18:15 (NovoLOG SUPPLEMENTAL SCALE) 1 ACHS SLIDING SCALE SQ 8/6/17 21:00 Sodium Chloride 1,000 ml @ 125 mls/hr Q8H IV 10/12/16 15:15 10/24/16 09:21 (Lactinex) 1 tab BID PO 10/13/16 21:00 10/23/16 21:00 (Benadryl) 25 mg Q6H PRN PO 10/22/16 14:45 (Deltasone) 40 mg DAILY PO 10/22/16 16:00 10/26/16 15:59 10/23/16 09:07 Levetriacetam 100 ml @ 400 mls/hr Q12HR IV 10/23/16 21:00 10/24/16 08:41 (SEROquel) 50 mg HS PO 10/24/16 21:00 Allergies Allergies Coded Allergies penicillin G (Unverified Allergy, Severe, 10/17/16) Exam I&O / VS Vital Signs Date Time Temp Pulse Resp B/P (MAP) Pulse Ox O2 Delivery O2 Flow Rate FiO2 10/24/16 12:47 95 21 10/24/16 06:20 97.4 87 18 169/79 (109) 95 10/23/16 18:00 98.4 96 16 147/78 (101) 95 Exam Comments alert, does not follow commands. No spontaneous speech. CN intact MOTOR--no focal deficits, occasional myoclonus BUE Objective Radiology Results MRI brain--normal Micro and Labs Laboratory Tests Test 10/23/16 21:14 Prothrombin Time 11.4 Prothromb Time International Ratio 1.0 Activated Partial Thromboplast Time 27.7 D-Dimer Quantitative (PE/DVT) 1.54 Troponin I LESS THAN 0.02 Vitamin B12 Level 347 Diagnostic Tests EEG---generalized slowing . There is periodic lateralizing activity over the right hemisphere that resolves during sleep. It is not truly epileptiform as the waves are not sharp and not spike and wave contour but they are periodic and lateralizing. Miguelito Branham. PhD Oct 24, 2016 13:03
--- NOTE | 2016-10-24 13:47 | EKG ---
Date Performed: 10/23/2016 Time Performed: 22:32:32 PTAGE: 66 years EKG: Sinus rhythm NONSPECIFIC T-WAVE ABNORMALITY BORDERLINE ECG Compared to prior tracing no significant change PREVIOUS TRACING : 10/14/2016 18.46 DOCTOR: Arleth Cottrell Interpretating Date/Time 10/24/2016 13:42:21
--- NOTE | 2016-10-24 14:33 | HHI.PR ---
Subjective Remarks Patient still confused does not follow commands as per RN patient was more responsive earlier afebrile no convulsions oberved Objective Vitals Vital Signs Date Time Temp Pulse Resp B/P (MAP) Pulse Ox O2 Delivery O2 Flow Rate FiO2 10/24/16 12:47 95 21 10/24/16 06:20 97.4 87 18 169/79 (109) 95 10/23/16 18:00 98.4 96 16 147/78 (101) 95 I/O 10/23/16 10/23/16 10/23/16 10/24/16 10/24/16 10/24/16 07:00 15:00 23:00 07:00 15:00 23:00 Intake Total 1375 ml 720 ml 994 ml 1475 ml 0 ml Balance 1375 ml 720 ml 994 ml 1475 ml 0 ml Intake Oral 720 ml 0 ml Oral Supplement 0 ml IV Total 1375 ml 994 ml 1475 ml # Voids 2 3 1 # Bowel Movements 2 Result Diagram: 10/23/16 0645 10/23/16 0645 Imaging Last Impressions Renal Ultrasound 10/12/16 0000 Signed Impressions: Service Date/Time: October 12:44 - CONCLUSION: 1. No evidence of hydronephrosis. 2. Benign right renal cyst measuring 2.5 cm. Trey Bang MD Objective Remarks GENERAL: lying in bed. Pt alert. non verbal CARDIOVASCULAR: Regular rate and rhythm without murmurs, gallops, or rubs. RESPIRATORY: Breath sounds equal bilaterally. No accessory muscle use. GASTROINTESTINAL: Abdomen soft, non-tender, nondistended. MUSCULOSKELETAL: No cyanosis, or edema. PSYCHIATRIC: awake, does not follow commands.Non verbal. Procedures none Medications and IVs Current Medications Medications (Trade) Dose Ordered Sig/Alyssa Route Start Time Stop Time Status Last Admin (Ativan) 1 mg Q6H PRN PO 10/07/16 16:15 10/22/16 17:02 (Ativan Inj) 1 mg Q6H PRN IM 10/07/16 16:15 10/24/16 08:53 (Benadryl) 50 mg HS PRN PO 10/07/16 16:15 10/16/16 21:49 (Tylenol) 650 mg Q4H PRN PO 10/07/16 16:15 10/22/16 17:02 (Milk Of Magnesia Liq) 30 ml DAILY PRN PO 10/07/16 16:15 10/22/16 17:02 (Mag-Al Plus Susp Liq) 30 ml Q6H PRN PO 10/07/16 16:15 (Cogentin) 1 mg Q12H PRN PO 10/07/16 16:15 (Cogentin Inj) 1 mg Q12H PRN IM 10/07/16 16:15 (Lipitor) 10 mg HS PO 10/07/16 21:00 10/23/16 23:55 (Lotrimin 1% Cream) 1 applic DAILY TOPICAL 10/08/16 09:00 10/23/16 09:00 (Vistaril) 25 mg HS PO 10/07/16 21:00 10/23/16 23:55 (Antivert) 12.5 mg TID PRN PO 10/07/16 16:15 (Pill Splitter) 1 ea UNSCH PRN OTHER 10/07/16 16:45 (Catapres) 0.1 mg Q6H PRN PO 10/08/16 18:15 (D50w (Vial) Inj) 50 ml UNSCH PRN IV 10/08/16 18:15 (Glucagon Inj) 1 mg UNSCH PRN OTHER 10/08/16 18:15 (NovoLOG SUPPLEMENTAL SCALE) 1 ACHS SLIDING SCALE SQ 10/08/16 21:00 Sodium Chloride 1,000 ml @ 125 mls/hr Q8H IV 10/12/16 15:15 10/24/16 09:21 (Lactinex) 1 tab BID PO 10/13/16 21:00 10/23/16 21:00 (Benadryl) 25 mg Q6H PRN PO 10/22/16 14:45 (Deltasone) 40 mg DAILY PO 10/22/16 16:00 10/26/16 15:59 10/23/16 09:07 Levetriacetam 100 ml @ 400 mls/hr Q12HR IV 10/23/16 21:00 10/24/16 08:41 (SEROquel) 50 mg HS PO 10/24/16 21:00 Acyclovir Sodium 905 mg/Sodium Chloride 150 ml @ 150 mls/hr Q8H IV 10/24/16 16:00 Urinary Catheter: No Vascular Central Line Catheter: No A/P Problem List: (1) Rapidly progressive dementia ICD Code: F03.90 - Unspecified dementia without behavioral disturbance Plan: This is a 66-year-old male with past medical history significant for depression, hypertension, diabetes and dyslipidemia who came in complaining of dizziness and was found to have a low normal B12 along with some parkinsonian symptoms. Patient started on Sinemet and B12. As per medical records the patient voiced thoughts of harming himself and burning down the hospital. Patient was then admitted to the psychiatric unit and the hospitalist service was consulted for medical management. Neurology has been consulted. The patient underwent several imaging studies including a head CT, brain MRI, head MRA which were reportedly normal. Neurology initially labeled the patient is having idiopathic dementia and recommended follow-up as an outpatient once discharged. The patient's neurological status has been declining over the past few weeks to the point where the patient is nonverbal, does not follow commands. EEG was ordered on 10/23 which showed some slowing. As per neurology documentation the patient is having periodic lateralizing activity on EEG. Repeat EEG today and agree with lumbar puncture suggested by neurology. Protein 14-3-3 will be checked to assess for possible Juanjo-Creutzfeldt disease. Case discussed with Dr. Branham who will start the patient on IV acyclovir. Continue Keppra IV and adjust as per neurology recommendations. I will also transfer the patient to the neurology floor. (2) GEOVANY (acute kidney injury) ICD Code: N17.9 - Acute kidney failure, unspecified Status: Acute Plan: GEOVANY secondary to prerenal azotemia due to poor oral intake and dehydration. resolving with Iv fluid administration. Continue to monitor BUN/creatinine, strict I's and O's and continue IV fluids for now. (3) Dysphagia ICD Code: R13.10 - Dysphagia, unspecified Plan: Speech therapy evaluation recommended since patient was seen pocket of fluid in his mouth. Speech therapy recommended soft diet with thin liquids. (4) HTN (hypertension) ICD Code: I10 - Essential (primary) hypertension Plan: Blood pressure seems to be overall with stable control. Continue clonidine when necessary (5) Rash ICD Code: R21 - Rash and other nonspecific skin eruption Plan: Patient has a maculopapular rash on thorax and back. Started on prednisone 40 mg by mouth daily on 10/22. I will discontinue oral prednisone and continue to monitor rash. (6) Dyslipidemia ICD Code: E78.5 - Hyperlipidemia, unspecified Plan: I will discontinue statin given that it is described in the literature that Lipitor can cause cognitive impairment. (7) Diabetes ICD Code: E11.9 - Type 2 diabetes mellitus without complications Status: Chronic Plan: Metformin held due to AKA. Continue SSI with insulin NovoLog and continue to monitor Accu-Cheks. And hemoglobin A1c checked in 5.6. Blood sugars remain stable Assessment and Plan DVT prophylaxis: SCDs while in bed. Have family meeting this a.m. along with the primary physician and staff from the unit including nurse's, caseworkers another ancillary staff. Explained to the family that we still don't have a set diagnosis on the patient's condition, given the cognitive decline and the presence of possible seizures on EEG that he has been started on anticonvulsants and that further testing will be required including a lumbar puncture which the family agreed to. The case was also discussed extensively in person with Dr. Mario and on the phone with Dr. Branham from neurology. 50 minutes were spent in total inpatient family meeting and potential care. Problem Qualifiers (1) Dysphagia: Qualified Codes: R13.10 - Dysphagia, unspecified (2) HTN (hypertension): Qualified Codes: I10 - Essential (primary) hypertension (3) Diabetes: Qualified Codes: E11.9 - Type 2 diabetes mellitus without complications Alvin Garzon MD Oct 24, 2016 14:33
[2016-10-24 14:35] VITALS: BP 146/83; PULSE 83; RESP 20; TEMP 98.7; O2SAT 95
[2016-10-24] MEDS ORDERED: IOHEXOL 300 MG/ML 50 ML BTL (for RAD DIAG) IT ONE (15:15)
[2016-10-24] MEDS ORDERED: ACYCLOVIR IV SCH (16:00)
[2016-10-24] MEDS ORDERED: SODIUM CHLORIDE 0.9% IV SCH (16:00)
--- NOTE | 2016-10-24 16:09 | HHI.DS ---
Psychiatry Discharge Summary Inpatient Psychiatric care?: Yes Advance Directive: No Reason Not Provided: Due to Patient Condition Mental Health AdvanceDirective: No Health Care Proxy: No Admission Admission Date Oct 07, 2016 at 14:30 Admission Diagnosis: (1) Delirium due to another medical condition ICD Code: F05 - Delirium due to known physiological condition (2) Seizure disorder ICD Code: G40.909 - Epilepsy, unspecified, not intractable, without status epilepticus Brief History From my consult note yesterday in the CDU: Mr. Luong is a 66-year-old male with no reported past psychiatric history, although I do see suggestions of depression in the chart and the patient is on Zoloft and Klonopin, who presented initially voluntarily from the [facility] clinic with complaints of dizziness. Reviewing the electronic medical record , I see no prior psychiatric contact within our system. The patient was apparently trying to leave the hospital yesterday and was placed under a Jha Act after family disclosed the following to PA in CDU: "Discussed with patient's and son. They state that the patient has made statements today about shooting himself in the head and burning down the hospital. He states that the patient is denying these to everybody else. They' re concerned for their safety and feel like he might hurt them are hurt himself if he were to go home." Patient seen and examined. Chart reviewed. Case discussed with PA in the CDU. A sitter is at the bedside. On my examination today, the patient presents as somewhat flat and psychomotor slowed. He denies making any of the threats alluded to above. He denies any suicidal or homicidal ideation on direct questioning. He denies any particular issues with mood, nor can I elicit any depressive or hypomanic/manic symptoms. Sleep is somewhat poor. Appetite reportedly fair. Denies audiovisual hallucinations. No jeniffer delusions. He says that the vertiginous sensation was of relatively recent onset, although he does have a history of head injury in the past. Remainder of the psychiatric ROS is negative. With the patient's permission, I have tried several times to obtain collateral from his , [employer], over the phone to clarify the situation. I have left a voicemail requesting a call back. Past psychiatric history: The patient denies a history of psychiatric diagnosis. He denies a history of inpatient or outpatient psychiatric treatment. He denies a history of suicide attempts. Family history: The patient denies any family history of mental illness. Chemical dependency history: The patient reports occasional use of alcohol. Denies any other substance use. Social history: The patient reports that he lives with his of 41 years. He has 2 sons. He has 2 years of college. He is a retired salesman. He served in the [employer] during [place] and [place] and had an honorable discharge. He did see combat but does not describe any PTSD symptoms at this time, nor has he been [facility] with this [facility] the [facility] he tells me. He denies any legal issues. Somewhat evasive on the question of whether he has access to guns or firearms. On my exam today: Patient seen and examined. Chart reviewed. Case discussed with nursing staff. No problematic behaviors noted overnight by nursing staff. On my examination today, I discussed the patient's 's concerns obtained from telephone collateral with the patient. He agrees that he has been somewhat more short- tempered of late. "The news infuriates me and we're the dummies paying for it. I seen it myself when I was in the . Waste, vast quantities of waste. " He speaks quite a bit about his experiences in [place], and this seems quite fresh for him. He does endorse some re-experiencing and hyperarousal but no real avoidance. He does say that he worries that his short temper places him at risk for violence, noting "I don't want to hurt anyone that I don't want to hurt up here [gesturing to his head]." He denies any HI. No SI. Otherwise no new psychiatric symptomatology versus yesterday. Past psychiatric, family, chemical dependency and social history are likewise unchanged. Tobacco Use In Past 30 Days: No Tobacco Past 30 Days Alcohol Use: Never Hospital Course Patient is a 66 y/o man with no previous psychiatric history who presented initially to the ED with complaints of dizziness from the ME clinic. Patient was then put under Jha act after family disclosed that patient had made suicidal threats as well as concerns that he might hurt others. Patient was admitted to the inpatient psychiatry unit where he was noted to have psychotic symptoms which he was initially started on sertraline 50mg po daily. Neurology was consulted and recommended patient to start on Sinemet due to parkinsonian symptoms. Patient had cognitive screening which was concerning for probable major neurocognitive disorder. Workup for reversible causes of dementia were completed in CDU. Patient had response to sinemet which idiopathic parkinsonism was considered at that time. Patient also began to experience hallucinations which he was stated on quetiapine 12.5mg HS. Due to patients poor oral intake patient required IVF which he was then transferred to the medical/psychiatric unit for further management. Patient was retained on involuntary status after he requested discharge and involuntary admission was granted by mental health court senior project accountant. Patient noted to have further cognitive decline and increasing hallucinations which quetiapine was increased to throughout admission to 100mg HS. Patient continued to be noted to be more confused with requiring assistance with feeding. Differential diagnoses were considered due to the clinical picture which included DLB, CJD, fronto-temperal dementia. EEG was ordered to rule out seizure disorder which showed possible complex-partial seizures and was started on Keppra for seizure control. Sertraline, quetiapine and sinemet were discontinued as patients clinical presentation may be secondary to current seizure activity although workup to exclude other differential diagnosis is being pursued. Patient had repeat Brain MRI and lumbar puncture which results are pending. After discussion with medical team, patient will be discharged from the medical/psychiatry unit and transferred onto the medical floor for further testing and management. Results Blood Pressure 146 / 83 Vital Signs Date Time Temp Pulse Resp B/P (MAP) Pulse Ox O2 Delivery O2 Flow Rate FiO2 10/24/16 14:35 98.7 83 20 146/83 (104) 95 10/24/16 12:47 21 Laboratory Tests Test 10/22/16 07:02 10/23/16 06:45 10/23/16 21:14 Creatinine 1.55 MG/DL (0.60-1.30) Estimat Glomerular Filtration Rate 45 ML/MIN (>89) 55 ML/MIN (>89) Red Blood Count 4.47 MIL/MM3 (4.50-5.90) Blood Urea Nitrogen 24 MG/DL (7-18) Random Glucose 160 MG/DL (74-106) D-Dimer Quantitative (PE/DVT) 1.54 MG/L FEU (0.00-0.50) Troponin I LESS THAN 0.02 NG/ML Laboratory Results Test 10/08/16 13:12 Cholesterol Level 163 MG/DL (120-200) HDL Cholesterol 41.0 MG/DL (40.0-60.0) Hemoglobin A1c 5.8 % (4.3-6.0) LDL Cholesterol 96 MG/DL (0-99) Triglycerides Level 129 MG/DL (42-150) Summary of Procedures Head MRA, Brain MRI, two EEG, lumbar puncture, VQ scan Imaging Last Impressions Renal Ultrasound 10/12/16 0000 Signed Impressions: Service Date/Time: October 12:44 - CONCLUSION: 1. No evidence of hydronephrosis. 2. Benign right renal cyst measuring 2.5 cm. Trey Bang MD Pending results at discharge: Yes Medications # of Antipsychotic meds at D/C: 0 Approp Antipsych med options 1 - Minimum of three failed multiple trials of monotherapy. 2 - Documented plan to taper to monotherapy due to previous use of multiple meds OR cross-taper in progress at D/C. 3 - Documentation of augmentation of Clozapine. 4 - Justification other than those listed in allowable values 1-3, document here : Discharge Discharge Date: Oct 24, 2016 Discharge Diagnosis: (1) Delirium due to another medical condition Diagnosis: Principal ICD Code: F05 - Delirium due to known physiological condition Status: Acute (2) Seizure disorder Diagnosis: Secondary ICD Code: G40.909 - Epilepsy, unspecified, not intractable, without status epilepticus Status: Acute Mental Status Exam at Disch MSE: Appearance/Behavior: appears stated age, in hospital [facility], lying on hospital bed, fair hygiene and grooming, poor eye contact Speech: minimal responses Language: fluent and non-spontaneous Mood: good Affect: slightly lethargic Thought process: disorganized Thought content: unable to assess Insight: poor Impulse control: limited Judgment: poor Alert and oriented to person and place only Pt Condition on Discharge: Stable Discharge Disposition: Discharge Home (Patient will be transfered to medical floor for further treatment and management.) Discharge Instructions Diet Instructions: Heart Healthy Diet Activities you can perform: Weight Bearing as Renay Discharge Time > 30 minutes Discharge/Advance Care Plan Health Problems: (1) Major neurocognitive disorder Goals to promote your health * To prevent worsening of your condition and complications * To maintain your health at the optimal level Directions to meet your goals Take your medications as prescribed Follow your dietary instruction Follow activity as directed Keep your appointments as scheduled Take your immunizations and boosters as scheduled If your symptoms worsen call your PCP, if no PCP go to Urgent Care Center or Emergency Room For 25/09 questions related to your inpatient stay or results of tests pending at discharge, please contact Dr. Abdon Mario at Smoking is Dangerous to Your Health. Avoid second hand smoking Abdon Mario MD Oct 24, 2016 16:09
--- NOTE | 2016-10-24 16:09 | PD.RAD ---
Post Procedure Progress Note Pre Procedure Diagnosis: (1) Seizure disorder (2) Delirium due to another medical condition Post Procedure Diagnosis: (1) Seizure disorder (2) Delirium due to another medical condition Procedure Date: Oct 24, 2016 Supervising Radiologist: Abraham Gage JR Proceduralist/Assist: Yeny Baez, RT(R)(), Megan Ibarra RT(R)() Anesthesia: Local Plan of Activity Patient to Unit: Nursing Unit Patient Condition: Good See PACS Report for procedural detail/treatment Spinal Procedure L1-L2, L2-L3, L3-L4, L4-L5 Findings: Very difficult case. 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 Multiple accesses performed with inability to obtain significant volume of CSF. Contrast confirmed intrathecal position of needle. Salines instilled with 0.5 ml obtained in return. Jr. Too,Abraham Swift MD Oct 24, 2016 16:09
--- NOTE | 2016-10-24 16:17 | HHI.NPPN ---
Subjective Renal Failure: Chronic, Acute, Stage III History of Present Illness 66-year-old male with past medical history of depression and psychosis, hypertension, diabetes mellitus, hyperlipidemia, chronic kidney disease, was admitted to the psych department because of worsening psychosis. I was called to see the patient for elevated BUN and creatinine. The patient denies any known history of renal disease. We do not have any previous labs for him except the first creatinine we have on September 29 was 1.7 and it has improved to 1.3. Additional Remarks Patient is alert, no SOB, remain confused, not in distress. Objective Data Data 10/24/16 10/25/16 19:00 07:00 Intake Total 0 ml Balance 0 ml Oral Supplement 0 ml Vital Signs Date Time Temp Pulse Resp B/P (MAP) Pulse Ox O2 Delivery O2 Flow Rate FiO2 10/24/16 14:35 98.7 83 20 146/83 (104) 95 10/24/16 12:47 95 21 10/24/16 06:20 97.4 87 18 169/79 (109) 95 10/23/16 18:00 98.4 96 16 147/78 (101) 95 -: 10/23/16 0645 10/23/16 0645 Physical Exam General Appearance: No Acute Distress, Comfortable Eyes Eye Exam: Pupils Equal Pulmonary Resp Exam: Clear Bilaterally, Breath Sounds Equal, No Distress Cardiology CV Exam: Regular, Normal Sinus Rhythm Gastrointestinal/Abdomen GI Exam: Soft, Non-Tender, Bowel Sounds Present Extremeties Extremities Exam: No Edema Neurologic Neuro Exam: Alert, Awake Assessment/Plan Assessment Summary: GEOVANY/Acute Renal Failure, CKD Stage III Problem List: (1) Depression ICD Codes: F32.9 - Major depressive disorder, single episode, unspecified Status: Acute (2) Adjustment disorder ICD Codes: F43.20 - Adjustment disorder, unspecified Status: Acute (3) Major neurocognitive disorder ICD Codes: F03.90 - Unspecified dementia without behavioral disturbance Status: Acute (4) GEOVANY (acute kidney injury) ICD Codes: N17.9 - Acute kidney failure, unspecified Status: Acute Plan Possibly has chronic kidney disease. Now he is NPO and for transfer to medical floor. Most likely will need GT feeding. Avoid Nephrotoxins and follow the BMP. Problem Qualifiers (1) Adjustment disorder: Madhuri Lott MD Oct 24, 2016 16:17
--- NOTE | 2016-10-24 16:58 | RADRPT ---
EXAM DATE/TIME: 10/24/2016 14:50 [place] COMPARISON: No previous studies available for comparison. 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 MEDICAL HISTORY : 1.AMS 2.Ministerio-Creutzfeldt disease SURGICAL HISTORY : 1.Unobtainable ENCOUNTER: Initial ACUITY: 2 days PAIN SCORE: Nonresponsive. LUMBAR PUNCTURE TIME: 1512 hours FLUORO TIME: 4.2 minutes IMAGE SERIES: ACCESS LEVEL: L2-3, L3-4. L4-5 FLUID: 0.5 cc of clear CSF was collected and sent to the laboratory for analysis. PROCEDURE : 1. Fluoroscopic guided lumbar puncture. The risks, benefits and alternatives to the procedure were explained to the patient's via teleph one and verbal consent was obtained. The site was prepped in sterile fashion. Full sterile techniqu e was used, including cap, mask, sterile gloves and gown and a large sterile sheet. Hand hygiene and 2% chlorhexidine and/or betadine/alcohol prep was utilized per protocol for cutaneous antisepsis. T he skin and subcutaneous tissues were infiltrated with local anesthetic solution. With fluoroscopic guidance the lumbar thecal sac was punctured at multiple levels as above. Unable t o obtain significant CSF at any level. CSF fills the hub of the needle but that's the maximum fluid o btained. Contrast was injected to confirm intrathecal positioning of the needle. Saline was instilled and withdrawn with 0.5 ML's able to be accumulated. 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 The patient tolerated the procedure well and there were no complications. CONCLUSION: Very difficult case as this patient has a congenitally small central canal. Despite accessing 3 level s and utilizing saline I was only able to obtain 0.5 ML of fluid from the thecal space. This was sent for analysis. Abraham Gage Jr., MD on October 24, 2016 at 16:53 Board Certified Radiologist. This report was verified electronically.
[2016-10-24 18:00] VITALS: BP 170/88; PULSE 88; RESP 17; TEMP 97.5; O2SAT 93
[2016-10-24 18:16] LABS: CSF LYMPHOCYTES 6 %; CSF MONOCYTES 84 %; CSF NEUTROPHILS 9 %; GROSS BLOOD TUBE #4 ND (0); SUPERNATE COLOR TUBE #4 ND (CLEAR); VOLUME TUBE # 4 0.2 ML; WBC TUBE #4 17 /MM3 (0-10)
[2016-10-24 19:46] LABS: BLOOD, URINE MOD (NEG); GLUCOSE,URINE TRACE mg/dL (NEG); KETONE, URINE NEG (NEG); MUCUS URINE FEW /lpf (OCC); NITRITE,URINE NEG (NEG); URINE COLOR YELLOW (YELLW/STRAW)
[2016-10-24 19:47] LABS: AUTOMATED NEUTROPHIL # 7.2 TH/MM3 (1.8-7.7); BASOPHIL # 0.1 TH/MM3 (0-0.2); BASOPHIL % 0.7 % (0.0-2.0); EOSINOPHIL # 0.2 TH/MM3 (0-0.4); EOSINOPHIL % 1.6 % (0.0-4.0); HEMATOCRIT 40.6 % (39.0-51.0); HEMO FLAGS DIFF FINAL; LYMPH % 12.4 % (9.0-44.0); LYMPHOCYTE # 1.2 TH/MM3 (1.0-4.8); MEAN CELL VOLUME 88.9 FL (80.0-100.0); MEAN CORPUSCULAR HEMOGLOBIN 29.9 PG (27.0-34.0); MEAN CORPUSCULAR HGB CONC 33.7 % (32.0-36.0); MONO % 11.3 % (0.0-8.0); PLATELET COUNT 195 TH/MM3 (150-450); RED BLOOD COUNT 4.56 MIL/MM3 (4.50-5.90); RED CELL DISTRIBUTION WIDTH 12.9 % (11.6-17.2); WHITE BLOOD COUNT 9.8 TH/MM3 (4.0-11.0)
[2016-10-24 19:47] LABS: COMMENT (UR) CATH-CULT NOT IND; CULTURE IF INDICATED CATH CULTURE NOT IND
[2016-10-24 20:08] LABS: ANION GAP 7 MEQ/L (5-15); BICARBONATE 24.9 MEQ/L (21.0-32.0); BLOOD UREA NITROGEN 25 MG/DL (7-18); CHLORIDE 104 MEQ/L (98-107); GLOMERULAR FILTRATION RATE 55 ML/MIN (>89); MAGNESIUM 2.5 MG/DL (1.5-2.5); POTASSIUM 3.8 MEQ/L (3.5-5.1); SODIUM (NA) 136 MEQ/L (136-145)
[2016-10-24 20:09] LABS: ALT (GPT) 26 U/L (12-78); AST (GOT) 32 U/L (15-37)
[2016-10-24 20:12] LABS: ALKALINE PHOSPHATASE 58 U/L (45-117); TOTAL BILIRUBIN ADULT 0.7 MG/DL (0.2-1.0)
[2016-10-24] MEDS ORDERED: QUEtiapine FUMARATE 25 MG TAB PO SCH (21:00)
--- NOTE | 2016-10-24 21:48 | MG ---
cc: ZENY RINALDI MD Lab No: Date: 10/24/16 Age: 66 Sex: M Race: DATE OF [address] Branham MEDICAL HISTORY Altered mental status, unsteady gait, vertigo. MEDICATIONS 1. Keppra. 2. Seroquel. 3. Zoloft. 4. Lipitor. 5. Sinemet. 6. Vistaril. DESCRIPTION There is generalized slowing on the EEG recording with intermittent lateralized periodic sharp activity mainly on the right hemisphere. During the recording there was generalized slowing in the theta range. Hyperventilation was not done. Photic stimulation did not elicit a driving response. INTERPRETATION This is an abnormal EEG with periodic lateralized discharges mainly on the right hemisphere with background slowing activity.This may indicate epileptogenicity with a background of an encephalopathic pattern. Clinical correlation is recommended. Zeny Rinaldi MD RGO/EO /9:16 PM /9:27 PM [facility]
--- NOTE | 2016-10-29 11:19 | MG ---
cc: ZENY RINALDI MD Lab No: Date: 10/23/2016 Age: Sex: M Race: DATE OF : 1950 This a re-dictation of 10/23/2016 The patient with altered mental status and myoclonic jerking. DESCRIPTION At the very beginning of the recording there were periodic sharp like activities bilateral, greater on the right. The activity was slower after 1 mg of Ativan was given. During the recording there were intermittent generalized slowing noted with polymorphic Beta and Theta high amplitude. Hyperventilation was not done. Photic stimulation did not elicit a driving response. INTERPRETATION This is an abnormal EEG. The background slowing may indicate an encephalopathic pattern. The periodic sharp like activity bilaterally may indicate epileptogenicity. Clinical correlation is indicated. Zeny Rinaldi MD RGO/TLL /10:06 AM /10:53 AM [facility]
== END 2016-10-24 22:55 | disposition admitted as inpatient to this hospital (09) | DRG 882 ==
LOC: H260 14:30 → H4EA 10-12 16:59 → HCPC 10-17 06:46 → H4EA 10-17 06:46
PROVIDERS: ADMIT Student in an Organized Health Care Education/Training Program; ATTEND Student in an Organized Health Care Education/Training Program
PROC: 009U3ZZ Drainage of Spinal Canal, Percutaneous Approach (ICD-10-PCS; principal; 2016-10-24)
PROC: B01B1ZZ Fluoroscopy of Spinal Cord using Low Osmolar Contrast (ICD-10-PCS; 2016-10-24)
DX: F43.20 Adjustment disorder, unspecified (principal); N17.9 Acute kidney failure, unspecified; F05 Delirium due to known physiological condition; E11.22 Type 2 diabetes mellitus with diabetic chronic kidney disease; N28.1 Cyst of kidney, acquired; R13.10 Dysphagia, unspecified; R45.851 Suicidal ideations; F01.50 Vascular dementia, unspecified severity, without behavioral disturbance, psychotic disturbance, mood disturbance, and anxiety; F29 Unspecified psychosis not due to a substance or known physiological condition; F43.10 Post-traumatic stress disorder, unspecified; E53.8 Deficiency of other specified B group vitamins; E78.5 Hyperlipidemia, unspecified; E86.0 Dehydration; E87.6 Hypokalemia; F32.9 Major depressive disorder, single episode, unspecified; G20 Parkinson's disease; G40.909 Epilepsy, unspecified, not intractable, without status epilepticus; I12.9 Hypertensive chronic kidney disease with stage 1 through stage 4 chronic kidney disease, or unspecified chronic kidney disease; N18.3 Chronic kidney disease, stage 3 (moderate); L25.9 Unspecified contact dermatitis, unspecified cause; Z79.899 Other long term (current) drug therapy; Z87.891 Personal history of nicotine dependence
CPT/HCPCS: 62270; 70553; 71010; 76775; 77003; 78582; 80048; 80053; 80061; 81001; 82607; 82948; 83036; 83735; 84100; 84484; 85025; 85027; 85379; 85610; 85730; 87015; 87493; 89051; 93005; 95819; A9540; A9567; A9579; J0133; J1953; J2060; J7030; J7512; Q0163; Q0177; Q9967

== ENCOUNTER 2016-10-24 21:39 | Inpatient (IN) | payer MEDICARE, OTHER ==
[~2016-10-24 21:39] MED LIST changes: +IOHEXOL 300 MG/ML 50 ML BTL (for RAD DIAG) IT ONE; -LISI10TA3 PO
[2016-10-25] VITALS: BP 132/93; PULSE 89; RESP 18; TEMP 97.8; O2SAT 97
[2016-10-25] MEDS ORDERED: SENNOSIDES 8.6 MG TAB PO PRN (00:45)
[2016-10-25] MEDS ORDERED: ONDANSETRON HCL 4 MG/2 ML VIAL IVP PRN (00:45)
[2016-10-25] MEDS ORDERED: ACETAMINOPHEN 325 MG TAB PO PRN (00:45)
[2016-10-25] MEDS ORDERED: NALOXONE HCL 0.4 MG/ML AMP IV PRN (00:45)
[2016-10-25] MEDS ORDERED: SODIUM CHLORIDE 0.9% FLUSH 10 ML FLUSH IV FLUSH PRN (00:45)
[2016-10-25] MEDS: DEXT 5%-NACL 0.9% 1000 ML INJ 1,000 ML IV SCH ×2 (01:00→20:15)
[2016-10-25] MEDS ORDERED: DEXTROSE 50% IN WATER 50 ML VIAL(D50) IV PRN (01:00)
[2016-10-25] MEDS ORDERED: GLUCAGON 1 MG/ML VIAL OTHER PRN (01:00)
[2016-10-25] MEDS: levETIRAcetam 1000 MG INJ 100 ML IV SCH ×3 (02:10→20:14)
[2016-10-25] MEDS: ACYCLOVIR INJ 900 MG in SODIUM CHLORIDE 0.9% INJ 150 ML IV SCH ×3 (02:10→18:33)
[2016-10-25 04:00] VITALS: BP 181/84; PULSE 65; RESP 20; TEMP 98.5; O2SAT 98
[2016-10-25 08:00] VITALS: BP 165/87; PULSE 90; RESP 17; TEMP 98; O2SAT 94
--- NOTE | 2016-10-25 08:52 | HHI.HP ---
[facility] Service [facility] Primary Care Physician [facility] Admission Diagnosis Diagnoses: Travel History International Travel<30 Days: No Contact w/Intl Traveler <30 Da: No Traveled to Known Affected Are: No History of Present Illness Mr. Luong is a 66 year male who initially presented on 10/08/16 with complaints of dizziness, workup was negative. Patient was then admitted to psych unit for suicidal ideations and altered mental status. He was evaluated by neurology, diagnosed with possible Parkinsonian symptoms and vitamin B 12 deficiency. However symptoms did not improve. MRI of the brain showed increased signal on T2 within the right occipital region possible cerebritis however CSF studies does not support this. EEG showed PLEDs, and with his clinical progression of extrapyramidal features was concerning for Creutzfeldt- Ministerio Disease. He underwent lumbar puncture for CSF studies but not enough sample was obtained to test for Creutzfeldt-Jakcob Disease. Patient discharged from psychiatry to inpatient for further workup. Presently, per patient's , patient acutely became confused in a span of 24 hours. No meaningful recovery since that happened. Patient remains to be a poor historian. He does not follow commands but seems to recognize his . Review of Systems ROS Limitations: Poor Historian Past Family Social History Past Medical History Hypertension Diabetes Dyslipidemia Depression Past Surgical History Umbilical hernia repair Reported Medications Carbidopa-Levodopa 25-100 Mg Tab 1 Tab PO Q12HR Vistaril (Hydroxyzine Pamoate) 25 Mg Cap 25 Mg PO HS 10 Days Meclizine (Meclizine HCl) 12.5 Mg Tab 12.5 Mg PO TID PRN Clotrimazole Topical (Clotrimazole) 1% Cream 1 Applic TOPICAL DAILY Metformin (Metformin HCl) 500 Mg Tab 500 Mg PO BID With meals Triamcinolone Topical (Triamcinolone Acetonide) 0.1% Cream 1 Applic TOPICAL DAILY Zoloft (Sertraline HCl) 50 Mg Tab 25 Mg PO DAILY 7 Days After 7 days, increase to 1 whole tablet (50mg) daily Atorvastatin (Atorvastatin Calcium) 20 Mg Tab 10 Mg PO HS Allergies: Coded Allergies: penicillin G (Unverified Allergy, Severe, 10/17/16) Family History Cancer Depression Social History Patient reports history of smoking cigars but quit 6-7 years ago. Admits to alcohol consumption of one drink q 2 to 3 days. Denies any illicit drug use Physical Exam Vital Signs Vital Signs Date Time Temp Pulse Resp B/P (MAP) Pulse Ox O2 Delivery O2 Flow Rate FiO2 10/25/16 04:00 98.5 65 20 181/84 (116) 98 10/25/16 00:00 97.8 89 18 132/93 (106) 97 Physical Exam Not in distress, nonverbal PERRL Supple neck, no masses or thyromegaly, trachea midline Normal rate and regular rhythm, no murmurs gallops or rubs appreciated. Clear to auscultation and symmetric bilaterally,, poor effort. Normal bowel sounds, soft, non-tender, nondistended, no guarding. Extremities without clubbing, cyanosis, or edema. Patient is awake, nonpurposeful movements, does not follow any commands, nonverbal. Moves all 4 extremities, positive for clonus. Caprini VTE Risk Assessment Caprini VTE Risk Assessment: Mod/High Risk (score >= 2) Caprini Risk Assessment Model Point Value = 1 Point Value = 2 Point Value = 3 Point Value = 5 Age 41-60 Minor surgery BMI > 25 kg/m2 Swollen legs Varicose veins or History of unexplained or recurrent spontaneous Oral contraceptives or hormone replacement Sepsis (< 1 month) Serious lung disease, including pneumonia (< 1 month) Abnormal pulmonary function Acute myocardial infarction Congestive heart failure (< 1 month) History of inflammatory bowel disease Medical patient at bed rest Age 61-74 Arthroscopic surgery Major open surgery (> 45 min) Laparoscopic surgery (> 45 min) Malignancy Confined to bed (> 72 hours) Immobilizing plaster cast Central venous access Age >= 75 History of VTE Family history of VTE Factor V Leiden Prothrombin [id number] Lupus anticoagulant Anticardiolipin antibodies Elevated serum homocysteine Heparin-induced thrombocytopenia Other congenital or acquired thrombophilia Stroke (< 1 month) Elective arthroplasty Hip, pelvis, or leg fracture Acute spinal cord injury (< 1 month) Prophylaxis Regimen Total Risk Factor Score Risk Level Prophylaxis Regimen 0-1 Low Early ambulation 2 Moderate Order ONE of the following: *Sequential Compression Device (SCD) *Heparin 5000 units SQ BID 3-4 Higher Order ONE of the following medications: *Heparin 5000 units SQ TID *Enoxaparin/Lovenox 40 mg SQ daily (WT < 150 kg, CrCl > 30 mL/min) *Enoxaparin/Lovenox 30 mg SQ daily (WT < 150 kg, CrCl > 10-29 mL/min) *Enoxaparin/Lovenox 30 mg SQ BID (WT < 150 kg, CrCl > 30 mL/min) AND/OR *Sequential Compression Device (SCD) 5 or more Highest Order ONE of the following medications: *Heparin 5000 units SQ TID (Preferred with Epidurals) *Enoxaparin/Lovenox 40 mg SQ daily (WT < 150 kg, CrCl > 30 mL/min) *Enoxaparin/Lovenox 30 mg SQ daily (WT < 150 kg, CrCl > 10-29 mL/min) *Enoxaparin/Lovenox 30 mg SQ BID (WT < 150 kg, CrCl > 30 mL/min) AND *Sequential Compression Device (SCD) Assessment and Plan Assessment and Plan This is a 66-year-old male with acute mental status changes- Acute mental status changes-secondary to rapidly progressive dementia? Versus Parkinson's, neurology consulted and recommended steroids. Consult neurosurgery for brain biopsy, might need transfer to tertiary care center. Steroids started for cerebritis, also on acyclovir per possible encephalitis, repeat lumbar puncture tomorrow per neurology. Continue Keppra. Patient was on Sinemet and B 12. Head CT, MRI of the brain and MRA unremarkable. EEG however shows some slowing. Repeat lumbar puncture for protein 14-3-3 to rule out Creutzfeldt-Ministerio disease. Recheck CBC and BMP tomorrow. Will defer Sinemet to nephrology. Next Dyslipidemia-statin on hold because of mental status changes Acute renal failure-resolving, recheck BMP tomorrow Dysphagia-reconsult speech therapy, on soft diet. Hypertension-controlled, clonidine as needed. Diabetes mellitus- Hemoglobin A1c 5.6. Monitor blood glucose and BMP. Hold metformin for now with normal hemoglobin A1c DVT prophylaxis: SCDs and heparin needs to be started after lumbar puncture Discussed with and discussed what has been diagnosed so far, she will talk to her 2 sons regarding brain biopsy. Physician Certification 2 Midnight Certification Type: Admission for Inpatient Services Order for Inpatient Services The services are ordered in accordance with Medicare regulations or non- Medicare payer requirements, as applicable. In the case of services not specified as inpatient-only, they are appropriately provided as inpatient services in accordance with the 2-midnight benchmark. Estimated LOS (days): 2 days is the estimated time the patient will need to remain in the hospital, assuming treatment plan goals are met and no additional complications. Post-Hospital Plan: [facility] Maylin Salazar MD Oct 25, 2016 08:52
--- NOTE | 2016-10-25 08:58 | HHI.PR ---
Review/Management Diagnosis I reviewed MRI with Dr Lloyd. THere is an area on the right in the occipital area of increase signal on T2--possible cerebritis. Differential also includes Creutzfeldt-Ministerio. They were unable to obtain sufficient CSF from multiple attempts at lumbar puncture yesterday to send for studies. THerefore, unable to obtain enough for 14-3-3 protein for Creutzfeldt-Ministerio. Currently on acyclovir for possibility of viral cerebritis, but he has no fevers and only minimal csf pleocytosis on the small quantity of csf obtained. This makes infectious cerebritis less likely. The clinical course of progression over time, extrapyramidal features and PLEDS on EEG as well as prominent myoclonus in absence of fevers is more consistent with Creutzfeldt-Ministerio disease. Plan continue current therapy. will start solumedrol for possibility of autoimmune cerebritis consult neurosurgery to consider biopsy of area of abnormality on MRI Consider transfer to [facility] or [facility]. Diagnosis/Plan: Subjective Subjective Comments No acute events Active Medications Current Medications Medications (Trade) Dose Ordered Sig/Alyssa Route Start Time Stop Time Status Last Admin (NS Flush) 2 ml UNSCH PRN IV FLUSH 10/25/16 00:45 (NS Flush) 2 ml BID IV FLUSH 10/25/16 09:00 (Tylenol) 650 mg Q4H PRN PO 10/25/16 00:45 (Zofran Inj) 4 mg Q6H PRN IVP 10/25/16 00:45 (Narcan Inj) 0.4 mg UNSCH PRN IV 10/25/16 00:45 (Senokot) 17.2 mg Q12H PRN PO 10/25/16 00:45 (D50w (Vial) Inj) 50 ml UNSCH PRN IV 10/25/16 01:00 (Glucagon Inj) 1 mg UNSCH PRN OTHER 10/25/16 01:00 Dextrose/Sodium Chloride 1,000 ml @ 84 mls/hr [id number] IV 10/25/16 01:00 10/25/16 01:00 Acyclovir Sodium 900 mg/Sodium Chloride 150 ml @ 150 mls/hr Q8H IV 10/25/16 02:00 10/25/16 02:10 Levetriacetam 100 ml @ 400 mls/hr Q12HR IV 10/25/16 01:00 10/25/16 02:10 Allergies Allergies Coded Allergies penicillin G (Unverified Allergy, Severe, 10/17/16) Exam I&O / VS Vital Signs Date Time Temp Pulse Resp B/P (MAP) Pulse Ox O2 Delivery O2 Flow Rate FiO2 10/25/16 04:00 98.5 65 20 181/84 (116) 98 10/25/16 00:00 97.8 89 18 132/93 (106) 97 Exam Comments alert, does not respond. does not follow simple commands. No speech CN--PERRL, EOM intact MOTOR--no focal deficit. He has myoclonus Miguelito More PhD Oct 25, 2016 08:58
[2016-10-25] MEDS: SODIUM CHLORIDE 0.9% FLUSH 10 ML FLUSH IV FLUSH SCH ×2 (09:00→20:22)
--- NOTE | 2016-10-25 09:32 | PD.CONS ---
(Marcos Nieto MD) HPI Consult Requested By Primary Care Physician [facility] (Marcos Nieto MD) Service Neurosurgery Consult Requested By Dr. Miguelito Branham Reason for Consult Brain Biopsy History of Present Illness Mr. Luong is a 66 year male who initially presented on 10/08/16 with complaints of dizziness. History cannot be obtained from the patient thus history was obtained from medical records and his at bedside. Upon admission, the patient was evaluated by Neurology. He was diagnosed with Parkinsonian symptoms and B12 deficiency and was placed on Sinemet and B12 supplements. The patient then made statements about harming himself and was Jha Acted and admitted in the psychiatric unit. His reports the patient continued to get worse despite medical management. He underwent an MRI Brain which showed increased signal on T2 within the right occipital region concerning for possible cerebritis. EEG showed PLEDs, and with his clinical progression of extrapyramidal features was concerning for Creutzfeldt-Ministerio Disease. He underwent lumbar puncture for CSF studies but not enough sample was obtained to test for Creutzfeldt-Jakcob Disease. Neurosurgery was consulted for possible brain biopsy. (Abi Whalen) Review of Systems NOT POSSIBLE DUE TO HIS CLINICAL CONDITION ROS Limitations: Clinical Condition (confused), Altered Mental Status, Unresponsive (Marcos Nieto MD) ROS Limitations: Clinical Condition (confused), Altered Mental Status (Abi Whalen) Past Family Social History Allergies: Coded Allergies: penicillin G (Unverified Allergy, Severe, 10/17/16) Past Medical History Arterial Hypertension Hyperlipidemia Diabetes Depression Active Ordered Medications Current Medications Sodium Chloride (NS Flush) 2 ml UNSCH PRN IV FLUSH FLUSH AFTER USING IV ACCESS ; Start 10/25/16 at 00:45 Sodium Chloride (NS Flush) 2 ml BID IV FLUSH ; Start 10/25/16 at 09:00 Acetaminophen (Tylenol) 650 mg Q4H PRN PO TEMP > 100.4; Start 10/25/16 at 00:45 Ondansetron HCl (Zofran Inj) 4 mg Q6H PRN IVP NAUSEA OR VOMITING; Start at 00:45 Naloxone HCl (Narcan Inj) 0.4 mg UNSCH PRN IV SEE LABEL COMMENTS; Start at 00:45 Sennosides (Senokot) 17.2 mg Q12H PRN PO MODERATE - SEVERE CONSTIPATION; Start 10/25/16 at 00:45 Dextrose (D50w (Vial) Inj) 50 ml UNSCH PRN IV HYPOGLYCEMIA-SEE COMMENTS; Start 10/25/16 at 01:00 Glucagon (Glucagon Inj) 1 mg UNSCH PRN OTHER HYPOGLYCEMIA-SEE COMMENTS; Start 10/25/16 at 01:00 Dextrose/Sodium Chloride 1,000 ml @ 84 mls/hr [id number] IV Last administered on 10/25/16 01:00; Start 10/25/16 at 01:00 Acyclovir Sodium 900 mg/Sodium Chloride 150 ml @ 150 mls/hr Q8H IV Last administered on 10/25/16 10:09; Start 10/25/16 at 02:00 Levetriacetam 100 ml @ 400 mls/hr Q12HR IV Last administered on 10/25/16 11: 45; Start 10/25/16 at 01:00 Methylprednisolone Sodium Succinate (SoluMEDROL INJ) 250 mg Q8HR IV PUSH ; Start 10/25/16 at 10:00 Iohexol (Omnipaque 300 Inj) 2 ml STK-MED ONCE IT ; Start 10/24/16 at 15:15; Stop 10/25/16 at 15:25; Status DC (Marcos Nieto MD) Past Medical History Per record Hypertension Hyperlipidemia Diabetes Depression Past Surgical History Per record Hernia repair Reported Medications Per record Lisinopril 10 Mg Tab 5 Mg PO DAILY Clotrimazole Topical (Clotrimazole) 1% Cream 1 Applic TOPICAL DAILY Metformin (Metformin HCl) 500 Mg Tab 500 Mg PO BID With meals Triamcinolone Topical (Triamcinolone Acetonide) 0.1% Cream 1 Applic TOPICAL DAILY Zoloft (Sertraline HCl) 50 Mg Tab 25 Mg PO DAILY 7 Days After 7 days, increase to 1 whole tablet (50mg) daily Atorvastatin (Atorvastatin Calcium) 20 Mg Tab 10 Mg PO HS Active Ordered Medications Current Medications Medications (Trade) Dose Ordered Sig/Alyssa Route PRN Reason Start Time Stop Time Status Last Admin Dose Admin Sodium Chloride (NS Flush) 2 ml UNSCH PRN IV FLUSH FLUSH AFTER USING IV ACCESS 10/25/16 00:45 Sodium Chloride (NS Flush) 2 ml BID IV FLUSH 10/25/16 09:00 Acetaminophen (Tylenol) 650 mg Q4H PRN PO TEMP > 100.4 10/25/16 00:45 Ondansetron HCl (Zofran Inj) 4 mg Q6H PRN IVP NAUSEA OR VOMITING 10/25/16 00:45 Naloxone HCl (Narcan Inj) 0.4 mg UNSCH PRN IV SEE LABEL COMMENTS 10/25/16 00:45 Sennosides (Senokot) 17.2 mg Q12H PRN PO MODERATE - SEVERE CONSTIPATION 10/25/16 00:45 Dextrose (D50w (Vial) Inj) 50 ml UNSCH PRN IV HYPOGLYCEMIA-SEE COMMENTS 10/25/16 01:00 Glucagon (Glucagon Inj) 1 mg UNSCH PRN OTHER HYPOGLYCEMIA-SEE COMMENTS 10/25/16 01:00 Dextrose/Sodium Chloride 1,000 ml @ 84 mls/hr [id number] IV 10/25/16 01:00 10/25/16 01:00 Acyclovir Sodium 900 mg/Sodium Chloride 150 ml @ 150 mls/hr Q8H IV 10/25/16 02:00 10/25/16 10:09 Levetriacetam 100 ml @ 400 mls/hr Q12HR IV 10/25/16 01:00 10/25/16 02:10 Methylprednisolone Sodium Succinate (SoluMEDROL INJ) 250 mg Q8HR IV PUSH 10/25/16 10:00 Family History Per records family history of cancer Social History Per record has history of smoking cigars but quit 6 years ago. One alcoholic drink every 2-3 days. No illicit drug use (Abi Whalen) Physical Exam Vital Signs Vital Signs Date Time Temp Pulse Resp B/P (MAP) Pulse Ox O2 Delivery O2 Flow Rate FiO2 10/25/16 04:00 98.5 65 20 181/84 (116) 98 10/25/16 00:00 97.8 89 18 132/93 (106) 97 Physical Exam The patient is minimally responsive. Opens eyes to pain. Localizes to painful stimuli with all 4 extremities. Spontaneous myoclonic jerks Cranial Nerves: Pupils equal, round, reactive to light. Eyes appear conjugated. There was no nystagmus, no papilledema. Face musculature appeared symmetrical at rest. Face sensation, olfaction, visual stephen, and hearing cannot be adequately assessed due to his neurological condition. The patient has a corneal reflex. He has a gag reflex. The sternocleidomastoid and trapezius are symmetrical. Cervical Spine: His neck is soft, supple, without nuchal rigidity. Motor: His muscle tone and bulk are normal. He moves purposefully all 4 extremities symmetrically. Reflexes: Deep tendon reflexes are 1+ and symmetrical in the biceps, triceps, and brachioradialis, bilaterally, in the upper extremities. In the lower extremities, the patellar and ankles are 1+, bilaterally. There is a bilateral plantar flexion response. There is no clonus or other abnormal reflexes noted. Sensory: On examination there is response to painful stimuli, localizing with both upper and lower extremities. Cerebellar: Examination cannot be adequately assessed due to the patient's neurological condition. (Marcos Nieto MD) Imaging I reviewed MRI with Dr Lloyd. THere is an area on the right in the occipital area of increase signal on T2--possible cerebritis. Otherwise the MRI ios unremarkable (Marcos Nieto MD) Attending Statement Neuro. neuro checks in a serial fashion. Discussed with his alternatives of treatment including possibility of a brain biopsy There was an unsuccessful attempt to lumbar puncture yesterday. recommend a C1- C2 puncture and obtain CSF for rotune and specialized studies, including inmunnohystochemical testing Antihypertensives to keep her blood pressure between 1 22/1/40 millimeters of medically anterior the aneurysm is secure He is receiving solumedrol for possibility of suspected autoimmune cerebritis Keppra for prophylaxis of seizures. Hyperlipidemia. Monitor lipid profile Depression. Hoild antidepresants for now Pulmonary. aggressive pulmonary toilette, nasotracheal suction, and breathing treatments with nebulizers. PT and OT evaluation Nutrition. Oral diet Renal. monitor closely urine output, BUN and creatinine Diabetes mellitus. Monitor serial Acu checks and SSI as needed in detail ID monitor for signs of infection Protonix for stress ulcer prophylaxis Steve hose and SCD's for DVT prophylaxis Discussed in detail with and children (Marcos Nieto MD) Marcos Nieto MD Oct 25, 2016 09:32 Abi Whalen Oct 25, 2016 10:50
[2016-10-25] MEDS ORDERED: methylPREDNISolone SOD SUCC 40 MG/1 ML VIAL IV PUSH SCH (10:00)
[2016-10-25 12:39] VITALS: BP 144/70; PULSE 103; RESP 20; TEMP 98.2; O2SAT 94
--- NOTE | 2016-10-25 14:24 | HHI.HP ---
[facility] Service [place] [facility] Primary Care Physician [facility] Admission Diagnosis Diagnoses: Past Family Social History Allergies: Coded Allergies: penicillin G (Unverified Allergy, Severe, 10/17/16) Physical Exam Vital Signs Vital Signs Date Time Temp Pulse Resp B/P (MAP) Pulse Ox O2 Delivery O2 Flow Rate FiO2 10/25/16 12:39 98.2 103 20 144/70 (94) 94 10/25/16 08:00 98.0 90 17 165/87 (113) 94 10/25/16 04:00 98.5 65 20 181/84 (116) 98 10/25/16 00:00 97.8 89 18 132/93 (106) 97 Physical Exam GENERAL: This is a well-nourished, well-developed patient, in no apparent distress. SKIN: No rashes, ecchymoses or lesions. Cool and dry. HEAD: Atraumatic. Normocephalic. No temporal or scalp tenderness. EYES: Pupils equal round and reactive. Extraocular motions intact. No scleral icterus. No injection or drainage. ENT: Nose without bleeding, purulent drainage or septal hematoma. Throat without erythema, tonsillar hypertrophy or exudate. Uvula midline. Airway patent. NECK: Trachea midline. No JVD or lymphadenopathy. Supple, nontender, no meningeal signs. CARDIOVASCULAR: Regular rate and rhythm without murmurs, gallops, or rubs. RESPIRATORY: Clear to auscultation. Breath sounds equal bilaterally. No wheezes , rales, or rhonchi. GASTROINTESTINAL: Abdomen soft, non-tender, nondistended. No hepato-splenomegaly , or palpable masses. No guarding. MUSCULOSKELETAL: Extremities without clubbing, cyanosis, or edema. No joint tenderness, effusion, or edema noted. No calf tenderness. Negative Homans sign bilaterally. NEUROLOGICAL: Awake and alert. Cranial nerves II through XII intact. Motor and sensory grossly within normal limits. Five out of 5 muscle strength in all muscle groups. Normal speech. Caprini VTE Risk Assessment Caprini Risk Assessment Model Point Value = 1 Point Value = 2 Point Value = 3 Point Value = 5 Age 41-60 Minor surgery BMI > 25 kg/m2 Swollen legs Varicose veins or History of unexplained or recurrent spontaneous Oral contraceptives or hormone replacement Sepsis (< 1 month) Serious lung disease, including pneumonia (< 1 month) Abnormal pulmonary function Acute myocardial infarction Congestive heart failure (< 1 month) History of inflammatory bowel disease Medical patient at bed rest Age 61-74 Arthroscopic surgery Major open surgery (> 45 min) Laparoscopic surgery (> 45 min) Malignancy Confined to bed (> 72 hours) Immobilizing plaster cast Central venous access Age >= 75 History of VTE Family history of VTE Factor V Leiden Prothrombin [id number] Lupus anticoagulant Anticardiolipin antibodies Elevated serum homocysteine Heparin-induced thrombocytopenia Other congenital or acquired thrombophilia Stroke (< 1 month) Elective arthroplasty Hip, pelvis, or leg fracture Acute spinal cord injury (< 1 month) Prophylaxis Regimen Total Risk Factor Score Risk Level Prophylaxis Regimen 0-1 Low Early ambulation 2 Moderate Order ONE of the following: *Sequential Compression Device (SCD) *Heparin 5000 units SQ BID 3-4 Higher Order ONE of the following medications: *Heparin 5000 units SQ TID *Enoxaparin/Lovenox 40 mg SQ daily (WT < 150 kg, CrCl > 30 mL/min) *Enoxaparin/Lovenox 30 mg SQ daily (WT < 150 kg, CrCl > 10-29 mL/min) *Enoxaparin/Lovenox 30 mg SQ BID (WT < 150 kg, CrCl > 30 mL/min) AND/OR *Sequential Compression Device (SCD) 5 or more Highest Order ONE of the following medications: *Heparin 5000 units SQ TID (Preferred with Epidurals) *Enoxaparin/Lovenox 40 mg SQ daily (WT < 150 kg, CrCl > 30 mL/min) *Enoxaparin/Lovenox 30 mg SQ daily (WT < 150 kg, CrCl > 10-29 mL/min) *Enoxaparin/Lovenox 30 mg SQ BID (WT < 150 kg, CrCl > 30 mL/min) AND *Sequential Compression Device (SCD) Physician Certification Order for Inpatient Services The services are ordered in accordance with Medicare regulations or non- Medicare payer requirements, as applicable. In the case of services not specified as inpatient-only, they are appropriately provided as inpatient services in accordance with the 2-midnight benchmark. days is the estimated time the patient will need to remain in the hospital, assuming treatment plan goals are met and no additional complications. Maylin Salazar MD Oct 25, 2016 14:24
[2016-10-25 16:11] VITALS: BP 147/95; PULSE 89; RESP 20; TEMP 97.8; O2SAT 94
[2016-10-25] MEDS ORDERED: cloNIDine HCL 0.1 MG TAB PO PRN (18:15)
[2016-10-25 20:00] VITALS: PULSE 100
[2016-10-26] VITALS (7 sets, daily range): BP systolic 133–165; BP diastolic 75–99; PULSE 94–106; RESP 16–22; TEMP 98.2–99.4; O2SAT 92–97
[2016-10-26] MEDS: DEXT 5%-NACL 0.9% 1000 ML INJ 1,000 ML IV SCH ×2 (01:48→12:45)
[2016-10-26] MEDS: ACYCLOVIR INJ 900 MG in SODIUM CHLORIDE 0.9% INJ 150 ML IV SCH ×3 (01:49→18:28)
[2016-10-26 07:45] LABS: AUTOMATED NEUTROPHIL # 6.6 TH/MM3 (1.8-7.7); BASOPHIL # 0.1 TH/MM3 (0-0.2); BASOPHIL % 0.6 % (0.0-2.0); EOSINOPHIL # 0.5 TH/MM3 (0-0.4); EOSINOPHIL % 5.1 % (0.0-4.0); HEMO FLAGS DIFF FINAL; LYMPH % 10.6 % (9.0-44.0); MEAN CELL VOLUME 88.6 FL (80.0-100.0); MEAN CORPUSCULAR HEMOGLOBIN 30.7 PG (27.0-34.0); MEAN CORPUSCULAR HGB CONC 34.6 % (32.0-36.0); NEUT % 72.7 % (16.0-70.0); PLATELET COUNT 176 TH/MM3 (150-450); RED BLOOD COUNT 4.29 MIL/MM3 (4.50-5.90); WHITE BLOOD COUNT 9.1 TH/MM3 (4.0-11.0)
[2016-10-26] MEDS: SODIUM CHLORIDE 0.9% FLUSH 10 ML FLUSH IV FLUSH SCH ×2 (08:15→21:16)
[2016-10-26] MEDS: levETIRAcetam 1000 MG INJ 100 ML IV SCH ×2 (08:15→21:16)
[2016-10-26 08:19] LABS: POTASSIUM 3.6 MEQ/L (3.5-5.1)
--- NOTE | 2016-10-26 08:44 | HHI.PR ---
Subjective Remarks Follow-up for altered mental status No mental status changes, no improvement. Still very confused, not oriented, non-volitional movements. Objective Vitals Vital Signs Date Time Temp Pulse Resp B/P (MAP) Pulse Ox O2 Delivery O2 Flow Rate FiO2 10/26/16 08:00 99.1 94 18 159/86 (110) 94 10/26/16 04:00 98.5 100 22 160/90 (113) 92 10/26/16 00:00 98.5 100 22 160/90 (113) 92 10/25/16 20:00 100 10/25/16 16:11 97.8 89 20 147/95 (112) 94 10/25/16 12:39 98.2 103 20 144/70 (94) 94 I/O 10/25/16 10/25/16 10/25/16 10/26/16 10/26/16 10/26/16 07:00 15:00 23:00 07:00 15:00 23:00 Output Total 300 ml Balance -300 ml Output Urine Total 300 ml # Voids 3 1 # Bowel Movements 3 1 1 Result Diagram: 10/26/16 0648 10/26/16 0648 Objective Remarks Not in distress, nonverbal PERRL Supple neck Normal rate and regular rhythm, no murmurs gallops or rubs appreciated. Clear to auscultation and symmetric bilaterally,, poor effort. Normal bowel sounds, soft, non-tender, nondistended, no guarding. Extremities without clubbing, cyanosis, or edema. Patient is awake, nonpurposeful movements, does not follow any commands, nonverbal. Moves all 4 extremities, positive for clonus. A/P Problem List: (1) GEOVANY (acute kidney injury) ICD Code: N17.9 - Acute kidney failure, unspecified Status: Acute (2) Rapidly progressive dementia ICD Code: F03.90 - Unspecified dementia without behavioral disturbance (3) Diabetes ICD Code: E11.9 - Type 2 diabetes mellitus without complications Status: Chronic (4) HTN (hypertension) ICD Code: I10 - Essential (primary) hypertension Assessment and Plan This is a 66-year-old male initially admitted with dizzines and acute mental status changes Acute mental status changes-secondary to rapidly progressive dementia Versus Parkinson's, neurology ordered. Recommended to consult neurosurgery for brain biopsy, neurosurgery would like to defer brain biopsy for no endocervical puncture. Steroids started for cerebritis, also on acyclovir per possible encephalitis, series on hold until after her cervical puncture. Continue Keppra. Patient was on Sinemet and B 12, on hold including other medications from home. Doubt delirium. Head CT, MRI of the brain and MRA unremarkable. EEG however shows some slowing. Repeat lumbar puncture for protein 14-3-3 to rule out Creutzfeldt-Ministerio disease today, discussed with Dr. Branham. Dyslipidemia-statin on hold because of mental status changes Acute renal failure- Creatinine higher again, start NS, recheck BMP tomorrow, likely from dehydration from poor oral intake. Dysphagia-reconsult speech therapy, on soft diet. Hypertension- uncontrolled, start norvasc, clonidine as needed. Diabetes mellitus- Hemoglobin A1c 5.6. Monitor blood glucose with BMP. Hold metformin for now with normal hemoglobin A1c DVT prophylaxis: SCDs and heparin needs to be started after lumbar puncture Discussed with and discussed what has been diagnosed so far, updated her about the plan. We'll wait for her cervical puncture results, nondiagnostic, might need a brain biopsy or transfer to tertiary center Discharge Planning not Medically ready, will likely need rehabilitation. Maylin Salazar MD Oct 26, 2016 08:44
[2016-10-26] MEDS ORDERED: amLODIPine BESYLATE 5 MG TAB PO SCH (09:00)
[2016-10-26] MEDS ORDERED: LORazepam 2 MG/ML VIAL ONE (13:04)
--- NOTE | 2016-10-26 13:47 | PD.RAD ---
Post Procedure Progress Note Procedure Date: Oct 26, 2016 Supervising Radiologist: Kranthi Lloyd MD Proceduralist/Assist: Zayra Hendrix, RT(R) Anesthesia: Other Plan of Activity Patient to Unit: Critical Care Patient Condition: Fair See PACS Report for procedural detail/treatment Spinal Procedure Lumbar Puncture Other Fluid Removal (CCs): 4 Fluid Description: Clear Puncture Time: 13:00 Findings: C1-C2 puncture for CSF. Best obtainable volume of 4.5 ml. Sample to lab. Jr. Too,Abraham Swift MD Oct 26, 2016 13:47
[2016-10-26] MEDS: SODIUM CHLOR 0.9% 1000 ML INJ 1,000 ML IV SCH ×2 (15:30→18:45)
[2016-10-26 15:50] LABS: CSF LYMPHOCYTES 2 %; CSF MONOCYTES 19 %; CSF NEUTROPHILS 78 %
[2016-10-26 16:01] LABS: SUPERNATE COLOR TUBE #1 CLEAR (CLEAR); VOLUME TUBE # 1 1.2 ML
[2016-10-26 16:02] LABS: GROSS BLOOD TUBE #1 1+ (0); GROSS BLOOD TUBE #2 1+ (0); GROSS BLOOD TUBE #3 1+ (0); SUPERNATE COLOR TUBE #2 CLEAR (CLEAR); SUPERNATE COLOR TUBE #3 CLEAR (CLEAR)
[2016-10-26 16:20] LABS: WBC TUBE #3 20 /MM3 (0-10)
--- NOTE | 2016-10-26 17:26 | HHI.PR ---
Review/Management Diagnosis csf so far is normal. Mild csf wbc elevation --nonspecific. could be proportionate to the rbc count in the csf. possibilities include vasculitis, infectious, Juanjo Creutzfeldt. Plan follow up csf start solumedrol for possibility of vasculitis. Diagnosis/Plan: Subjective Subjective Comments No acute events reported s/p C1-2 puncture for csf Active Medications Current Medications Medications (Trade) Dose Ordered Sig/Alyssa Route Start Time Stop Time Status Last Admin (NS Flush) 2 ml UNSCH PRN IV FLUSH 10/25/16 00:45 (NS Flush) 2 ml BID IV FLUSH 10/25/16 09:00 10/25/16 20:22 (Tylenol) 650 mg Q4H PRN PO 10/25/16 00:45 (Zofran Inj) 4 mg Q6H PRN IVP 10/25/16 00:45 (Narcan Inj) 0.4 mg UNSCH PRN IV 10/25/16 00:45 (Senokot) 17.2 mg Q12H PRN PO 10/25/16 00:45 (D50w (Vial) Inj) 50 ml UNSCH PRN IV 10/25/16 01:00 (Glucagon Inj) 1 mg UNSCH PRN OTHER 10/25/16 01:00 Dextrose/Sodium Chloride 1,000 ml @ 84 mls/hr [id number] IV 10/25/16 01:00 10/26/16 01:48 Acyclovir Sodium 900 mg/Sodium Chloride 150 ml @ 150 mls/hr Q8H IV 10/25/16 02:00 10/26/16 10:33 Levetriacetam 100 ml @ 400 mls/hr Q12HR IV 10/25/16 01:00 10/26/16 08:15 (Catapres) 0.1 mg Q6H PRN PO 10/25/16 18:15 (Norvasc) 5 mg DAILY PO 10/26/16 09:00 Sodium Chloride 1,000 ml @ 100 mls/hr Q10H IV 10/26/16 08:45 10/26/16 15:30 Allergies Allergies Coded Allergies penicillin G (Unverified Allergy, Severe, 10/17/16) Exam I&O / VS 10/26/16 10/26/16 10/27/16 15:00 23:00 07:00 Intake Total 0 ml Balance 0 ml Intake Oral 0 ml # Voids 3 # Bowel Movements 1 Vital Signs Date Time Temp Pulse Resp B/P (MAP) Pulse Ox O2 Delivery O2 Flow Rate FiO2 10/26/16 16:00 98.2 94 16 141/75 (97) 97 10/26/16 12:00 98.4 97 18 165/96 (119) 96 10/26/16 08:00 99.1 94 18 159/86 (110) 94 10/26/16 04:00 98.5 100 22 160/90 (113) 92 10/26/16 00:00 98.5 100 22 160/90 (113) 92 10/25/16 20:00 100 Exam Comments lethargic does not follow simple commands. No speech CN--PERRL, EOM intact MOTOR--no focal deficit. He has myoclonus BUE Objective Micro and Labs Laboratory Tests Test 10/26/16 06:48 10/26/16 13:00 White Blood Count 9.1 Red Blood Count 4.29 Hemoglobin 13.2 Hematocrit 38.0 Mean Corpuscular Volume 88.6 Mean Corpuscular Hemoglobin 30.7 Mean Corpuscular Hemoglobin Concent 34.6 Red Cell Distribution Width 13.0 Platelet Count 176 Mean Platelet Volume 8.3 Neutrophils (%) (Auto) 72.7 Lymphocytes (%) (Auto) 10.6 Monocytes (%) (Auto) 11.0 Eosinophils (%) (Auto) 5.1 Basophils (%) (Auto) 0.6 Neutrophils # (Auto) 6.6 Lymphocytes # (Auto) 1.0 Monocytes # (Auto) 1.0 Eosinophils # (Auto) 0.5 Basophils # (Auto) 0.1 CBC Comment DIFF FINAL Differential Comment Blood Urea Nitrogen 37 Creatinine 2.78 Random Glucose 141 Calcium Level 8.5 Sodium Level 138 Potassium Level 3.6 Chloride Level 107 Carbon Dioxide Level 23.0 Anion Gap 8 Estimat Glomerular Filtration Rate 23 CSF Volume (Tube 1) 1.2 CSF Supernatant Color (tube 1) CLEAR CSF Gross Blood (Tube 1) 1+ CSF Volume (Tube 2) 1.0 CSF Supernatant Color (tube 2) CLEAR CSF Gross Blood (Tube 2) 1+ CSF Volume (Tube 3) 2.0 CSF Supernatant Color (tube 3) CLEAR CSF Gross Blood (Tube 3) 1+ CSF WBC (Tube 3) 20 CSF RBC (Tube 3) 415 CSF Neutrophils 78 CSF Lymphocytes 2 CSF Monocytes 19 CSF Basophils 1 CSF Glucose 86 CSF Total Protein 29.9 Date/Time Source Procedure Growth Status 10/26/16 13:00 Cerebral Spinal Fluid Lumbar Puncture Fungal Smear Pending Received 10/26/16 13:00 Cerebral Spinal Fluid Lumbar Puncture Fungal Culture Pending Received Miguelito Branham PhD Oct 26, 2016 17:26
[2016-10-26] MEDS ORDERED: methylPREDNISolone SOD SUCC 40 MG/1 ML VIAL IV PUSH SCH (18:00)
[2016-10-26] MEDS: METHYLPREDNISOLONE SO SUCC IV SCH (21:02)
[2016-10-26] MEDS: SODIUM CHLORIDE 0.9% IV SCH (21:02)
[2016-10-26] MEDS: LORazepam 2 MG/ML VIAL IV PRN (23:34)
[2016-10-27] VITALS (7 sets, daily range): BP systolic 115–178; BP diastolic 54–88; PULSE 91–108; RESP 18–20; TEMP 97.6–99; O2SAT 93–95
[2016-10-27] MEDS: ACYCLOVIR INJ 900 MG in SODIUM CHLORIDE 0.9% INJ 150 ML IV SCH ×3 (02:43→22:41)
[2016-10-27] MEDS: SODIUM CHLORIDE 0.9% IV SCH ×4 (02:43→20:16)
[2016-10-27] MEDS: METHYLPREDNISOLONE SO SUCC IV SCH ×4 (02:43→20:16)
[2016-10-27] MEDS: SODIUM CHLOR 0.9% 1000 ML INJ 1,000 ML IV SCH ×3 (04:55→17:42)
[2016-10-27] MEDS: LORazepam 2 MG/ML VIAL IV PRN ×3 (06:24→19:56)
[2016-10-27] MEDS: SODIUM CHLORIDE 0.9% FLUSH 10 ML FLUSH IV FLUSH SCH ×2 (09:00→21:11)
[2016-10-27] MEDS: levETIRAcetam 1000 MG INJ 100 ML IV SCH (09:06)
[2016-10-27 10:46] LABS: BICARBONATE 21.7 MEQ/L (21.0-32.0); POTASSIUM 3.9 MEQ/L (3.5-5.1)
[2016-10-27] MEDS: ENALAPRILAT 1.25 MG/ML VIAL IV PUSH PRN (13:35)
--- NOTE | 2016-10-27 16:21 | HHI.PR ---
Subjective Remarks Follow up acute mental status change. Patient still not responding to verbal stimuli. at bedside states that patient is about the same today. He does have a rash on his chest and back. Objective Vitals Vital Signs Date Time Temp Pulse Resp B/P (MAP) Pulse Ox O2 Delivery O2 Flow Rate FiO2 10/27/16 11:56 98.8 100 20 178/70 (106) 95 10/27/16 08:50 98.4 91 20 155/88 (110) 93 10/27/16 06:20 98.0 95 18 126/68 (87) 94 10/27/16 04:00 97.8 99 20 115/54 (74) 95 10/27/16 00:00 97.6 108 18 153/87 (109) 95 10/26/16 20:00 99.4 106 18 133/88 (103) 95 10/26/16 17:30 98.8 97 17 154/99 (117) 96 I/O 10/26/16 10/26/16 10/26/16 10/27/16 10/27/16 10/27/16 07:00 15:00 23:00 07:00 15:00 23:00 Intake Total 0 ml 100 ml 1251 ml 1077 ml Output Total 300 ml 200 ml 200 ml Balance -300 ml 0 ml -100 ml 1051 ml 1077 ml Intake Oral 0 ml IV Total 100 ml 1251 ml 1077 ml Output Urine Total 300 ml 200 ml 200 ml # Voids 3 1 # Bowel Movements 1 1 Result Diagram: 10/26/16 0648 10/27/16 0814 Objective Remarks General: Elderly male in no acute distress. Heart: Regular rate and rhythm. No murmur. Lungs: Clear to auscultation bilaterally. No wheezes, rales, or rhonchi. Breathing is nonlabored. Abdomen: Soft, nontender, nondistended. Extremities: No lower extremity edema. Psych: Nonverbal. Does not respond to verbal stimuli. Does not follow commands. Skin: Rash on chest with excoriations. Procedures 10/26/16 C1-C2 puncture for CSF Urinary Catheter: No Vascular Central Line Catheter: No A/P Problem List: (1) GEOVANY (acute kidney injury) ICD Code: N17.9 - Acute kidney failure, unspecified Status: Acute (2) Rapidly progressive dementia ICD Code: F03.90 - Unspecified dementia without behavioral disturbance (3) Diabetes ICD Code: E11.9 - Type 2 diabetes mellitus without complications Status: Chronic (4) HTN (hypertension) ICD Code: I10 - Essential (primary) hypertension (5) Rash ICD Code: R21 - Rash and other nonspecific skin eruption Assessment and Plan 1 Acute mental status changes: Secondary to rapidly progressive dementia vs Parkinson's. Appreciate neurology recommendations. S/P cervical puncture. Awaiting CSF results. Neurosurgery deferred brain biopsy at this time. Continue steroids, acyclovir. Continue Keppra. Doubt delirium. Imaging unremarkable. EEG shows some slowing. 2. Dyslipidemia: Statin on hold. 3. Acute renal failure: Continue IV fluids. Monitor labs. 4. Dysphagia: NPO per speech therapy. 5. Hypertension: Continue Norvasc. Clonidine as needed. 6. Diabetes mellitus: A1c 5.6. Metformin on hold. Monitor Accu-checks and cover with sliding scale insulin. 7. DVT prophylaxis: SCDs. Discharge Planning Patient may require transfer to tertiary care center. Miguel Stratton MD Oct 27, 2016 16:21
--- NOTE | 2016-10-27 17:00 | HHI.PR ---
Review/Management Diagnosis csf so far is normal. Mild csf wbc elevation --nonspecific. could be proportionate to the rbc count in the csf. possibilities include vasculitis, infectious, Juanjo Creutzfeldt. Plan follow up csf continue solumedrol for possibility of vasculitis. rash could be related to keppra. Will stop keppra and replace with vimpat. Diagnosis/Plan: Subjective Subjective Comments No acute events reported has developed rash Active Medications Current Medications Medications (Trade) Dose Ordered Sig/Alyssa Route Start Time Stop Time Status Last Admin (NS Flush) 2 ml UNSCH PRN IV FLUSH 10/25/16 00:45 (NS Flush) 2 ml BID IV FLUSH 10/25/16 09:00 10/27/16 09:00 (Tylenol) 650 mg Q4H PRN PO 10/25/16 00:45 (Zofran Inj) 4 mg Q6H PRN IVP 10/25/16 00:45 (Narcan Inj) 0.4 mg UNSCH PRN IV 10/25/16 00:45 (Senokot) 17.2 mg Q12H PRN PO 10/25/16 00:45 (D50w (Vial) Inj) 50 ml UNSCH PRN IV 10/25/16 01:00 (Glucagon Inj) 1 mg UNSCH PRN OTHER 10/25/16 01:00 Levetriacetam 100 ml @ 400 mls/hr Q12HR IV 10/25/16 01:00 10/27/16 09:06 (Catapres) 0.1 mg Q6H PRN PO 10/25/16 18:15 (Norvasc) 5 mg DAILY PO 10/26/16 09:00 Sodium Chloride 1,000 ml @ 100 mls/hr Q10H IV 10/26/16 08:45 10/27/16 04:55 Methylprednisolone Sodium Succinate 250 mg/Sodium Chloride 50 ml @ 100 mls/hr Q6H IV 10/26/16 20:00 10/27/16 14:56 (Ativan Inj) 1 mg Q6H PRN IV 10/26/16 21:30 10/27/16 13:35 (Vasotec Inj) 1.25 mg Q6H PRN IV PUSH 10/26/16 21:30 10/27/16 13:35 Acyclovir Sodium 900 mg/Sodium Chloride 150 ml @ 150 mls/hr Q12H IV 10/27/16 22:00 Allergies Allergies Coded Allergies penicillin G (Unverified Allergy, Severe, 10/17/16) Exam I&O / VS 10/27/16 10/27/16 10/28/16 14:59 22:59 06:59 Intake Total 1077 ml Balance 1077 ml IV Total 1077 ml # Voids 1 Vital Signs Date Time Temp Pulse Resp B/P (MAP) Pulse Ox O2 Delivery O2 Flow Rate FiO2 10/27/16 16:49 99.0 98 20 162/85 (110) 94 10/27/16 11:56 98.8 100 20 178/70 (106) 95 10/27/16 08:50 98.4 91 20 155/88 (110) 93 10/27/16 06:20 98.0 95 18 126/68 (87) 94 10/27/16 04:00 97.8 99 20 115/54 (74) 95 10/27/16 00:00 97.6 108 18 153/87 (109) 95 10/26/16 20:00 99.4 106 18 133/88 (103) 95 10/26/16 17:30 98.8 97 17 154/99 (117) 96 Exam Comments lethargic does not follow simple commands. No speech CN--PERRL, EOM intact MOTOR--no focal deficit. He has myoclonus BUE Objective Micro and Labs Laboratory Tests Test 10/27/16 08:14 Blood Urea Nitrogen 47 Creatinine 2.83 Random Glucose 197 Calcium Level 8.6 Sodium Level 138 Potassium Level 3.9 Chloride Level 107 Carbon Dioxide Level 21.7 Anion Gap 9 Estimat Glomerular Filtration Rate 22 Date/Time Source Procedure Growth Status 10/26/16 13:00 Cerebral Spinal Fluid Lumbar Puncture Fungal Smear Pending Received 10/26/16 13:00 Cerebral Spinal Fluid Lumbar Puncture Fungal Culture Pending Received Miguelito Branham PhD Oct 27, 2016 17:00
[2016-10-27] MEDS: LACOSAMIDE INJ 100 MG in SODIUM CHLORIDE 0.9% INJ 100 ML IV SCH (21:09)
[2016-10-28] VITALS: BP 163/90; PULSE 105; RESP 18; TEMP 98.4; O2SAT 93
[2016-10-28] MEDS: SODIUM CHLORIDE 0.9% IV SCH ×4 (01:40→19:43)
[2016-10-28] MEDS: METHYLPREDNISOLONE SO SUCC IV SCH ×4 (01:40→19:43)
[2016-10-28 04:00] VITALS: BP 157/75; PULSE 96; RESP 18; TEMP 98.6; O2SAT 94
[2016-10-28] MEDS: LORazepam 2 MG/ML VIAL IV PRN ×3 (06:25→19:43)
[2016-10-28 08:00] VITALS: BP 143/83; PULSE 98; RESP 22; TEMP 99.1; O2SAT 94
[2016-10-28] MEDS: SODIUM CHLOR 0.9% 1000 ML INJ 1,000 ML IV SCH (08:44)
[2016-10-28 08:58] LABS: BICARBONATE 21.9 MEQ/L (21.0-32.0); MAGNESIUM 2.6 MG/DL (1.5-2.5); POTASSIUM 3.4 MEQ/L (3.5-5.1)
[2016-10-28] MEDS: SODIUM CHLORIDE 0.9% FLUSH 10 ML FLUSH IV FLUSH SCH ×2 (09:00→21:00)
[2016-10-28] MEDS: LACOSAMIDE INJ 100 MG in SODIUM CHLORIDE 0.9% INJ 100 ML IV SCH ×2 (09:17→22:09)
[2016-10-28] MEDS: ACYCLOVIR INJ 900 MG in SODIUM CHLORIDE 0.9% INJ 150 ML IV SCH ×2 (11:04→23:39)
[2016-10-28 12:00] VITALS: BP 155/88; PULSE 111; RESP 22; TEMP 98.5; O2SAT 91
[2016-10-28 13:22] LABS: HSV 1,PCR Negative (Negative)
--- NOTE | 2016-10-28 14:55 | HHI.PR ---
Subjective Remarks Follow up acute mental status change. Patient's at bedside. States that patient opened his eyes earlier today when she said his name. Rash appears to be improving. No other changes noted. Objective Vitals Vital Signs Date Time Temp Pulse Resp B/P (MAP) Pulse Ox O2 Delivery O2 Flow Rate FiO2 10/28/16 12:00 98.5 111 22 155/88 (110) 91 10/28/16 08:00 99.1 98 22 143/83 (103) 94 10/28/16 04:00 98.6 96 18 157/75 (102) 94 10/28/16 00:00 98.4 105 18 163/90 (114) 93 10/27/16 20:00 98.7 94 18 151/82 (105) 93 10/27/16 16:49 99.0 98 20 162/85 (110) 94 I/O 10/27/16 10/27/16 10/27/16 10/28/16 10/28/16 10/28/16 07:00 15:00 23:00 07:00 15:00 23:00 Intake Total 1251 ml 150 ml 1000 ml 160 ml Output Total 200 ml 850 ml Balance 1051 ml 150 ml 1000 ml -850 ml 160 ml IV Total 1251 ml 150 ml 1000 ml 160 ml Output Urine Total 200 ml 850 ml # Voids 1 Result Diagram: 10/26/16 0648 10/28/16 0706 Objective Remarks General: Elderly male in no acute distress. Heart: Regular rate and rhythm. No murmur. Lungs: Clear to auscultation bilaterally. No wheezes, rales, or rhonchi. Breathing is nonlabored. Abdomen: Soft, nontender, nondistended. Extremities: No lower extremity edema. Psych: Nonverbal. Does not respond to verbal stimuli. Does not follow commands. Skin: Rash on chest is improving. Procedures 10/26/16 C1-C2 puncture for CSF Urinary Catheter: No Vascular Central Line Catheter: No A/P Problem List: (1) GEOVANY (acute kidney injury) ICD Code: N17.9 - Acute kidney failure, unspecified Status: Acute (2) Rapidly progressive dementia ICD Code: F03.90 - Unspecified dementia without behavioral disturbance (3) Diabetes ICD Code: E11.9 - Type 2 diabetes mellitus without complications Status: Chronic (4) HTN (hypertension) ICD Code: I10 - Essential (primary) hypertension (5) Rash ICD Code: R21 - Rash and other nonspecific skin eruption Assessment and Plan 1 Acute mental status changes: Secondary to rapidly progressive dementia vs Parkinson's. Appreciate neurology recommendations. S/P cervical puncture. Awaiting CSF results. Neurosurgery deferred brain biopsy at this time. Continue steroids, acyclovir. Continue Vimpat. Doubt delirium. Imaging unremarkable. EEG shows some slowing. 2. Dyslipidemia: Statin on hold. 3. Acute renal failure: Continue IV fluids. Monitor labs. 4. Dysphagia: NPO per speech therapy. 5. Hypertension: Continue Norvasc. Clonidine as needed. 6. Diabetes mellitus: A1c 5.6. Metformin on hold. Monitor Accu-checks and cover with sliding scale insulin. 7. DVT prophylaxis: SCDs. 8. Rash: ? secondary to Keppra. Improving after Keppra discontinued. Discharge Planning Patient may require transfer to tertiary care center. Miguel Stratton MD Oct 28, 2016 14:55
[2016-10-28] MEDS: NS + KCL 20 MEQ INJ 1,000 ML IV SCH (15:11)
[2016-10-28 20:00] VITALS: BP 175/83; PULSE 71; PULSE 98; RESP 18; TEMP 99.3; O2SAT 92
[2016-10-28 22:54] VITALS: BP 159/90
[2016-10-29] VITALS: BP 152/80; PULSE 96; RESP 18; TEMP 98.7; O2SAT 91
--- NOTE | 2016-10-29 00:36 | HHI.PR ---
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 Plan - [place] Q4h - Vimpat 100mg Q12h - Acyclovir 900mg Q8h - Follow up csf - Continue solumedrol for possibility of vasculitis. - Keppra stopped, rash could be related to Keppra, - Continue Vimpat. - Dr. Branham will continue during the week Diagnosis/Plan: Subjective Subjective Comments Neurology follow up, covering for Dr. Branham Patient's and son at bed side Continued myoclonic jerky movements and being delirious Pending CSF results Active Medications Current Medications Medications (Trade) Dose Ordered Sig/Alyssa Route Start Time Stop Time Status Last Admin (NS Flush) 2 ml UNSCH PRN IV FLUSH 10/25/16 00:45 (NS Flush) 2 ml BID IV FLUSH 10/25/16 09:00 10/28/16 09:00 (Tylenol) 650 mg Q4H PRN PO 10/25/16 00:45 (Zofran Inj) 4 mg Q6H PRN IVP 10/25/16 00:45 (Narcan Inj) 0.4 mg UNSCH PRN IV 10/25/16 00:45 (Senokot) 17.2 mg Q12H PRN PO 10/25/16 00:45 (D50w (Vial) Inj) 50 ml UNSCH PRN IV 10/25/16 01:00 (Glucagon Inj) 1 mg UNSCH PRN OTHER 10/25/16 01:00 (Catapres) 0.1 mg Q6H PRN PO 10/25/16 18:15 (Norvasc) 5 mg DAILY PO 10/26/16 09:00 Methylprednisolone Sodium Succinate 250 mg/Sodium Chloride 50 ml @ 100 mls/hr Q6H IV 10/26/16 20:00 10/28/16 19:43 (Ativan Inj) 1 mg Q6H PRN IV 10/26/16 21:30 10/28/16 19:43 (Vasotec Inj) 1.25 mg Q6H PRN IV PUSH 10/26/16 21:30 10/27/16 13:35 Acyclovir Sodium 900 mg/Sodium Chloride 150 ml @ 150 mls/hr Q12H IV 10/27/16 22:00 10/28/16 23:39 Lacosamide 100 mg/ Sodium Chloride 110 ml @ 110 mls/hr Q12HR IV 10/27/16 21:00 10/28/16 22:09 Potassium Chloride/Sodium Chloride 1,000 ml @ 84 mls/hr [id number] IV 10/28/16 14:00 10/28/16 15:11 Allergies Allergies Coded Allergies penicillin G (Unverified Allergy, Severe, 10/17/16) Review of Systems All other ROS: ROS reviewed as documented in chart Exam I&O / VS Vital Signs Date Time Temp Pulse Resp B/P (MAP) Pulse Ox O2 Delivery O2 Flow Rate FiO2 10/28/16 22:54 159/90 (113) 10/28/16 20:00 99.3 71 18 175/83 (113) 92 10/28/16 12:00 98.5 111 22 155/88 (110) 91 10/28/16 08:00 99.1 98 22 143/83 (103) 94 10/28/16 04:00 98.6 96 18 157/75 (102) 94 Exam Comments unchanged neurologic exam Objective Micro and Labs Laboratory Tests Test 10/28/16 07:06 Blood Urea Nitrogen 37 Creatinine 1.35 Random Glucose 177 Calcium Level 8.5 Magnesium Level 2.6 Sodium Level 143 Potassium Level 3.4 Chloride Level 112 Carbon Dioxide Level 21.9 Anion Gap 9 Estimat Glomerular Filtration Rate 53 Date/Time Source Procedure Growth Status 10/26/16 13:00 Cerebral Spinal Fluid Lumbar Puncture Fungal Smear Pending Received 10/26/16 13:00 Cerebral Spinal Fluid Lumbar Puncture Fungal Culture Pending Received Georgette Rinaldi MD Oct 29, 2016 00:36
[2016-10-29] MEDS: METHYLPREDNISOLONE SO SUCC IV SCH ×4 (02:00→22:13)
[2016-10-29] MEDS: SODIUM CHLORIDE 0.9% IV SCH ×4 (02:00→22:13)
[2016-10-29 08:00] VITALS: BP 159/83; PULSE 87; RESP 20; TEMP 98.9; O2SAT 93
[2016-10-29] MEDS: LACOSAMIDE INJ 100 MG in SODIUM CHLORIDE 0.9% INJ 100 ML IV SCH ×2 (09:00→23:23)
[2016-10-29] MEDS: SODIUM CHLORIDE 0.9% FLUSH 10 ML FLUSH IV FLUSH SCH ×2 (09:00→22:13)
[2016-10-29] MEDS: ACYCLOVIR INJ 900 MG in SODIUM CHLORIDE 0.9% INJ 150 ML IV SCH (10:53)
[2016-10-29] MEDS: NS + KCL 20 MEQ INJ 1,000 ML IV SCH ×2 (11:10→22:17)
[2016-10-29 11:43] LABS: AUTOMATED NEUTROPHIL # 8.8 TH/MM3 (1.8-7.7); BASOPHIL % 0.1 % (0.0-2.0); HEMATOCRIT 36.9 % (39.0-51.0); HEMO FLAGS DIFF FINAL; LYMPH % 4.4 % (9.0-44.0); LYMPHOCYTE # 0.4 TH/MM3 (1.0-4.8); MEAN CELL VOLUME 88.9 FL (80.0-100.0); MEAN CORPUSCULAR HEMOGLOBIN 30.7 PG (27.0-34.0); MEAN CORPUSCULAR HGB CONC 34.5 % (32.0-36.0); NEUT % 89.5 % (16.0-70.0); PLATELET COUNT 169 TH/MM3 (150-450); RED BLOOD COUNT 4.15 MIL/MM3 (4.50-5.90); RED CELL DISTRIBUTION WIDTH 12.9 % (11.6-17.2); WHITE BLOOD COUNT 9.8 TH/MM3 (4.0-11.0)
[2016-10-29 12:00] VITALS: BP 157/94; PULSE 106; RESP 20; TEMP 99.7; O2SAT 92
[2016-10-29 12:12] LABS: BICARBONATE 22.9 MEQ/L (21.0-32.0); POTASSIUM 3.7 MEQ/L (3.5-5.1)
[2016-10-29 13:44] LABS: CSF CRYPTOCOCCUS AG CONF ND (NOT DETECTD)
--- NOTE | 2016-10-29 15:22 | HHI.PR ---
Subjective Remarks Follow up acute mental status change. No change reported by nursing or patient' s at bedside. Still not following commands. Objective Vitals Vital Signs Date Time Temp Pulse Resp B/P (MAP) Pulse Ox O2 Delivery O2 Flow Rate FiO2 10/29/16 12:00 99.7 106 20 157/94 (115) 92 10/29/16 08:00 98.9 87 20 159/83 (108) 93 10/29/16 00:00 98.7 96 18 152/80 (104) 91 10/28/16 22:54 159/90 (113) 10/28/16 20:00 98 10/28/16 20:00 99.3 71 18 175/83 (113) 92 I/O 10/28/16 10/28/16 10/28/16 10/29/16 10/29/16 10/29/16 07:00 15:00 23:00 07:00 15:00 23:00 Intake Total 160 ml 450 ml Output Total 850 ml 600 ml 600 ml Balance -850 ml 160 ml 450 ml -600 ml -600 ml IV Total 160 ml 450 ml Output Urine Total 850 ml 600 ml 600 ml # Bowel Movements 2 5 Result Diagram: 10/29/16 1016 10/29/16 1016 Objective Remarks General: Elderly male in no acute distress. Heart: Regular rate and rhythm. No murmur. Lungs: Clear to auscultation bilaterally. No wheezes, rales, or rhonchi. Breathing is nonlabored. Abdomen: Soft, nontender, nondistended. Extremities: No lower extremity edema. Psych: Nonverbal. Does not respond to verbal stimuli. Does not follow commands. Skin: Rash on chest is improving. Procedures 10/26/16 C1-C2 puncture for CSF Urinary Catheter: No Vascular Central Line Catheter: No A/P Problem List: (1) GEOVANY (acute kidney injury) ICD Code: N17.9 - Acute kidney failure, unspecified Status: Acute (2) Rapidly progressive dementia ICD Code: F03.90 - Unspecified dementia without behavioral disturbance (3) Diabetes ICD Code: E11.9 - Type 2 diabetes mellitus without complications Status: Chronic (4) HTN (hypertension) ICD Code: I10 - Essential (primary) hypertension (5) Rash ICD Code: R21 - Rash and other nonspecific skin eruption Assessment and Plan 1 Acute mental status changes: Secondary to rapidly progressive dementia vs Parkinson's. Appreciate neurology recommendations. S/P cervical puncture. Awaiting CSF results. Neurosurgery deferred brain biopsy at this time. Continue steroids, acyclovir. Continue Vimpat. Doubt delirium. Imaging unremarkable. EEG shows some slowing. 2. Dyslipidemia: Statin on hold. 3. Acute renal failure: Continue IV fluids. Monitor labs. Creatinine increased today. 4. Dysphagia: NPO per speech therapy. 5. Hypertension: Continue Norvasc. Clonidine as needed. 6. Diabetes mellitus: A1c 5.6. Metformin on hold. Monitor Accu-checks and cover with sliding scale insulin. Glucose elevated secondary to steroids. 7. DVT prophylaxis: SCDs. 8. Rash: ? secondary to Keppra. Improving after Keppra discontinued. Discharge Planning Patient may require transfer to tertiary care center. Miguel Stratton MD Oct 29, 2016 15:22
[2016-10-29] MEDS ORDERED: GLUCAGON 1 MG/ML VIAL OTHER PRN (15:30)
[2016-10-29] MEDS ORDERED: DEXTROSE 50% IN WATER 50 ML SYRINGE IV PRN (15:45)
[2016-10-29 16:00] VITALS: BP 168/83; PULSE 89; RESP 20; TEMP 99.9; O2SAT 93
[2016-10-29] MEDS: INSULIN ASPART SUPPLEMENTAL SCALE SQ SCH ×2 (16:00→22:56)
[2016-10-29] MEDS: cloNIDine HCL 0.1 MG/24 HR PATCH T-DERMAL SCH (16:58)
[2016-10-29] MEDS: LORazepam 2 MG/ML VIAL IV PRN (18:01)
[2016-10-29 20:00] VITALS: PULSE 101
[2016-10-29 20:39] LABS: C. DIFF EPI 027 PRESUMPTIVE NEGATIVE (NEGATIVE)
[2016-10-29 23:31] VITALS: BP_SYST 159; BP_SYST 168; BP_DIAS 104; BP_DIAS 91; PULSE 100; TEMP 99.4; O2SAT 92
[2016-10-30] VITALS (11 sets, daily range): BP systolic 140–165; BP diastolic 85–90; PULSE 88–109; RESP 20–26; TEMP 98.1–99.4; O2SAT 91–96
[2016-10-30] MEDS: ACYCLOVIR INJ 900 MG in SODIUM CHLORIDE 0.9% INJ 150 ML IV SCH ×2 (00:39→10:42)
[2016-10-30] MEDS: METHYLPREDNISOLONE SO SUCC IV SCH ×4 (03:08→21:18)
[2016-10-30] MEDS: SODIUM CHLORIDE 0.9% IV SCH ×4 (03:08→21:18)
[2016-10-30] MEDS: LORazepam 2 MG/ML VIAL IV PRN ×2 (03:43→10:36)
[2016-10-30] MEDS: INSULIN ASPART SUPPLEMENTAL SCALE SQ SCH ×4 (06:13→21:00)
[2016-10-30 07:31] LABS: AUTOMATED NEUTROPHIL # 6.6 TH/MM3 (1.8-7.7); HEMATOCRIT 39.4 % (39.0-51.0); HEMO FLAGS DIFF FINAL; LYMPH % 3.8 % (9.0-44.0); LYMPHOCYTE # 0.3 TH/MM3 (1.0-4.8); MEAN CELL VOLUME 89.5 FL (80.0-100.0); MEAN CORPUSCULAR HEMOGLOBIN 30.4 PG (27.0-34.0); MEAN CORPUSCULAR HGB CONC 33.9 % (32.0-36.0); MONO % 10.2 % (0.0-8.0); PLATELET COUNT 147 TH/MM3 (150-450); RED CELL DISTRIBUTION WIDTH 12.9 % (11.6-17.2); WHITE BLOOD COUNT 7.7 TH/MM3 (4.0-11.0)
[2016-10-30 08:06] LABS: ALKALINE PHOSPHATASE 74 U/L (45-117); ALT (GPT) 67 U/L (12-78); ANION GAP 9 MEQ/L (5-15); AST (GOT) 50 U/L (15-37); BICARBONATE 21.9 MEQ/L (21.0-32.0); BLOOD UREA NITROGEN 71 MG/DL (7-18); CHLORIDE 122 MEQ/L (98-107); GLOMERULAR FILTRATION RATE 24 ML/MIN (>89); POTASSIUM 3.9 MEQ/L (3.5-5.1); SODIUM (NA) 153 MEQ/L (136-145); TOTAL BILIRUBIN ADULT 1.2 MG/DL (0.2-1.0)
[2016-10-30] MEDS: LACOSAMIDE INJ 100 MG in SODIUM CHLORIDE 0.9% INJ 100 ML IV SCH ×2 (09:17→21:18)
[2016-10-30] MEDS: SODIUM CHLORIDE 0.9% FLUSH 10 ML FLUSH IV FLUSH SCH (09:18)
[2016-10-30] MEDS: NS + KCL 20 MEQ INJ 1,000 ML IV SCH (09:37)
--- NOTE | 2016-10-30 09:56 | RADRPT ---
EXAM DATE/TIME: 10/26/2016 12:24 [facility] COMPARISON: LUMBAR PUNCTURE, October 24, 2016, 14:50. INDICATIONS : Patient with rapidly progressive dementia in need of lumbar puncture. MEDICAL HISTORY : HTN, Diabetes, HLD SURGICAL HISTORY : Lumbar puncture, Umbilical hernia repair ENCOUNTER: Subsequent ACUITY: 3 weeks PAIN SCORE: Nonresponsive. LUMBAR PUNCTURE TIME: 1300 hours FLUORO TIME: 2.8 minutes IMAGE SERIES: 0 SEDATION TIME: 15 minutes ACCESS LEVEL: C1-C2 FLUID: 4.5 cc of clear CSF was collected and sent to the laboratory for analysis. SEDATION: 1.) 100 mcg fentanyl (Sublimaze) IV 2.) 2 mg lorazepam (Ativan) IV PROCEDURE : 1. Fluoroscopic guided cervical puncture. The risks, benefits and alternatives to the procedure were explained and verbal and written consent w as obtained. The site was prepped in sterile fashion. Full sterile technique was used, including ca p, mask, sterile gloves and gown and a large sterile sheet. Hand hygiene and 2% chlorhexidine and/or betadine/alcohol prep was utilized per protocol for cutaneous antisepsis. The skin and subcutaneous tissues were infiltrated with local anesthetic solution. With fluoroscopic guidance the cervical thecal sac was punctured at the level above. The fluid descr ibed above was removed without difficulty. The patient tolerated the procedure well and there were no complications. CONCLUSION: Uncomplicated fluoroscopically guided cervical puncture. Kranthi Lloyd MD on October 30, 2016 at 9:53 Board Certified Radiologist. This report was verified electronically.
--- NOTE | 2016-10-30 11:26 | HHI.PR ---
Subjective Remarks Follow up mental status change. Nursing reports that patient has had labored breathing this morning. O2 sats decreased to 87 on 3L oxygen. Improved to mid 90s on 4L. Still having diarrhea. No other changes reported. Objective Vitals Vital Signs Date Time Temp Pulse Resp B/P (MAP) Pulse Ox O2 Delivery O2 Flow Rate FiO2 10/30/16 08:43 98.1 92 20 165/85 (111) 91 10/30/16 04:00 98.9 103 20 140/90 (107) 91 10/30/16 03:40 98.9 100 156/89 (111) 10/30/16 00:00 98.2 109 20 154/85 (108) 92 10/29/16 23:31 99.4 100 168/91 (116) 92 10/29/16 20:00 101 10/29/16 16:00 99.9 89 20 168/83 (111) 93 10/29/16 12:00 99.7 106 20 157/94 (115) 92 I/O 10/29/16 10/29/16 10/29/16 10/30/16 10/30/16 10/30/16 07:00 15:00 23:00 07:00 15:00 23:00 Output Total 600 ml 600 ml 851 ml Balance -600 ml -600 ml -851 ml Output Urine Total 600 ml 600 ml 850 ml Stool Total 1 ml # Bowel Movements 2 5 1 3 1 Result Diagram: 10/30/16 0704 10/30/16 0704 Imaging Last Impressions Lumbar Puncture Fluoroscopy 10/26/16 0000 Signed Impressions: Service Date/Time: October 12:24 - CONCLUSION: Uncomplicated fluoroscopically guided cervical puncture. Kranthi Lloyd MD Objective Remarks General: Elderly male in no acute distress. Heart: Regular rate and rhythm. No murmur. Lungs: Clear to auscultation bilaterally. No wheezes, rales, or rhonchi. Breathing is somewhat labored. Abdomen: Soft, nontender, nondistended. Extremities: No lower extremity edema. Psych: Nonverbal. Does not respond to verbal stimuli. Does not follow commands. Skin: Rash on chest is improving. Procedures 10/26/16 C1-C2 puncture for CSF Urinary Catheter: No Vascular Central Line Catheter: No A/P Problem List: (1) GEOVANY (acute kidney injury) ICD Code: N17.9 - Acute kidney failure, unspecified Status: Acute (2) Rapidly progressive dementia ICD Code: F03.90 - Unspecified dementia without behavioral disturbance (3) Diabetes ICD Code: E11.9 - Type 2 diabetes mellitus without complications Status: Chronic (4) HTN (hypertension) ICD Code: I10 - Essential (primary) hypertension (5) Rash ICD Code: R21 - Rash and other nonspecific skin eruption Assessment and Plan 1 Acute mental status changes: Secondary to rapidly progressive dementia vs Parkinson's. Appreciate neurology recommendations. S/P cervical puncture. Awaiting CSF results. Neurosurgery deferred brain biopsy at this time. Continue steroids, acyclovir. Continue Vimpat. Doubt delirium. Imaging unremarkable. EEG shows some slowing. 2. Dyslipidemia: Statin on hold. 3. Acute renal failure: Continue IV fluids. Monitor labs. Creatinine continues to increase. Consult nephrology. 4. Dysphagia: NPO per speech therapy. 5. Hypertension: Catapres patch. 6. Diabetes mellitus: A1c 5.6. Metformin on hold. Monitor Accu-checks and cover with sliding scale insulin. Glucose elevated secondary to steroids. 7. DVT prophylaxis: SCDs. 8. Rash: ? secondary to Keppra. Improving after Keppra discontinued. 9. Dyspnea, labored breathing: Check CXR, ABG. Transfer to ICU. Consult pulmonology. Discharge Planning Patient may require transfer to tertiary care center. Miguel Stratton MD Oct 30, 2016 11:26
[2016-10-30 11:28] LABS: BLOOD GAS HCO3 21 mmol/L (22-26); BLOOD GAS METHEMOGLOBIN 0.9 % (0-2); BLOOD GAS O2 HGB SATURATION 93 % (90-100); BLOOD GAS OXYGEN CONTENT 17.8 Vol % (12.0-20.0); BLOOD GAS PCO2 31 mmHg (38-42); BLOOD GAS PO2 76 mmHg (61-120); BLOOD GAS TOTAL HGB 13.5 G/DL (12.0-16.0); TEMP CORR TO 98.6
[2016-10-30 11:29] LABS: CRITICAL VALUE NO; DRAW SITE LT RADIAL; FIO2 36 %; NUMBER OF ARTERIAL PUNCTURES 1; OXYGEN DEVICE NASAL CANNULA; STAT YES; ULNAR PULSE PRESENT
--- NOTE | 2016-10-30 12:03 | RADRPT ---
EXAM DATE/TIME: 10/30/2016 11:21 [facility] COMPARISON: CHEST SINGLE AP, October 24, 2016, 5:48. INDICATIONS : Short of breath. MEDICAL HISTORY : Diabetes mellitus type II. SURGICAL HISTORY : TBI, Hernia repair ENCOUNTER: Initial ACUITY: 3 weeks PAIN SCORE: Non-responsive. LOCATION: Bilateral chest FINDINGS: Lungs are under aerated but clear. The heart and pulmonary vascularity are normal. The portion of the bony skeleton visualized is unremarkable. CONCLUSION: Underated otherwise negative. Rahat Frey MD FACR on October 30, 2016 at 12:01 Board Certified Radiologist. This report was verified electronically.
[2016-10-30 13:41] LABS: BACTERIA, URINE MANY /hpf; BLOOD, URINE LARGE (NEG); COMMENT (UR) CULTURE INDICATED; CULTURE IF INDICATED CULTURE INDICATED; GLUCOSE,URINE NEG (NEG); KETONE, URINE NEG (NEG); MUCUS URINE FEW /lpf (OCC); NITRITE,URINE NEG (NEG); SQUAMOUS EPITHELIAL CELL URINE <1 /hpf (0-5); URINE COLOR YELLOW (YELLW/STRAW)
[2016-10-30 17:51] LABS: CALIFORNIA ENCEPH AB IGG <1:4 (<1:4); CALIFORNIA ENCEPH AB IGM <1:4 (<1:4); EAST EQUINE ENCEPH AB IGG <1:4 (<1:4); EAST EQUINE ENCEPH AB IGM <1:4 (<1:4); ST LOUIS ENCEPH AB IGG <1:4 (<1:4); ST LOUIS ENCEPH AB IGM <1:4 (<1:4)
--- NOTE | 2016-10-30 18:45 | HHI.PR ---
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 Plan - [place]cks Q4h - Vimpat 100mg Q12h - Acyclovir 900mg Q8h - Follow up csf - Continue solumedrol for possibility of vasculitis. - Keppra stopped, rash could be related to Keppra, - Continue Vimpat. - repeat MRI brain and EEG Diagnosis/Plan: Subjective Subjective Comments No acute events reported Active Medications Current Medications Medications (Trade) Dose Ordered Sig/Alyssa Route Start Time Stop Time Status Last Admin (NS Flush) 2 ml UNSCH PRN IV FLUSH 10/25/16 00:45 (NS Flush) 2 ml BID IV FLUSH 10/25/16 09:00 10/30/16 09:18 (Zofran Inj) 4 mg Q6H PRN IVP 10/25/16 00:45 (Narcan Inj) 0.4 mg UNSCH PRN IV 10/25/16 00:45 Methylprednisolone Sodium Succinate 250 mg/Sodium Chloride 50 ml @ 100 mls/hr Q6H IV 10/26/16 20:00 10/30/16 08:13 (Ativan Inj) 1 mg Q6H PRN IV 10/26/16 21:30 10/30/16 10:36 (Vasotec Inj) 1.25 mg Q6H PRN IV PUSH 10/26/16 21:30 10/27/16 13:35 Acyclovir Sodium 900 mg/Sodium Chloride 150 ml @ 150 mls/hr Q12H IV 10/27/16 22:00 10/30/16 10:42 Lacosamide 100 mg/ Sodium Chloride 110 ml @ 110 mls/hr Q12HR IV 10/27/16 21:00 10/30/16 09:17 Potassium Chloride/Sodium Chloride 1,000 ml @ 100 mls/hr Q10H IV 10/28/16 14:00 10/29/16 22:17 (Catapres-Tts 0.1mg Patch.7d) 1 patch Q7D T-DERMAL 10/29/16 16:00 10/29/16 16:58 (D50w (Syr) Inj) 50 ml UNSCH PRN IV 10/29/16 15:45 (Glucagon Inj) 1 mg UNSCH PRN OTHER 10/29/16 15:30 (NovoLOG SUPPLEMENTAL SCALE) 1 ACHS SLIDING SCALE SQ 10/29/16 16:00 10/30/16 11:05 Miscellaneous Information 1 Q7D T-DERMAL 11/05/16 16:00 Allergies Allergies Coded Allergies penicillin G (Unverified Allergy, Severe, 10/17/16) Review of Systems All other ROS: ROS reviewed as documented in chart Exam I&O / VS 10/30/16 10/30/16 10/31/16 15:00 23:00 07:00 Intake Total 50 ml Output Total 950 ml Balance -900 ml IV Total 50 ml Output Urine Total 950 ml # Bowel Movements 1 Vital Signs Date Time Temp Pulse Resp B/P (MAP) Pulse Ox O2 Delivery O2 Flow Rate FiO2 10/30/16 12:00 98.5 97 20 149/86 (107) 94 10/30/16 08:43 98.1 92 20 165/85 (111) 91 10/30/16 08:05 88 10/30/16 04:00 98.9 103 20 140/90 (107) 91 10/30/16 03:40 98.9 100 156/89 (111) 10/30/16 00:00 98.2 109 20 154/85 (108) 92 10/29/16 23:31 99.4 100 168/91 (116) 92 10/29/16 20:00 101 Exam Comments lethargic does not follow simple commands. No speech CN--PERRL, EOM intact MOTOR--no focal deficit. no myoconus at present Objective Micro and Labs Laboratory Tests Test 10/30/16 07:04 10/30/16 11:10 10/30/16 12:25 10/30/16 13:10 White Blood Count 7.7 Red Blood Count 4.40 Hemoglobin 13.4 Hematocrit 39.4 Mean Corpuscular Volume 89.5 Mean Corpuscular Hemoglobin 30.4 Mean Corpuscular Hemoglobin Concent 33.9 Red Cell Distribution Width 12.9 Platelet Count 147 Mean Platelet Volume 8.2 Neutrophils (%) (Auto) 86.0 Lymphocytes (%) (Auto) 3.8 Monocytes (%) (Auto) 10.2 Eosinophils (%) (Auto) 0.0 Basophils (%) (Auto) 0.0 Neutrophils # (Auto) 6.6 Lymphocytes # (Auto) 0.3 Monocytes # (Auto) 0.8 Eosinophils # (Auto) 0.0 Basophils # (Auto) 0.0 CBC Comment DIFF FINAL Differential Comment Blood Urea Nitrogen 71 Creatinine 2.70 Random Glucose 209 Total Protein 6.6 Albumin 2.6 Calcium Level 8.6 Alkaline Phosphatase 74 Aspartate Amino Transf (AST/SGOT) 50 Alanine Aminotransferase (ALT/SGPT) 67 Total Bilirubin 1.2 Sodium Level 153 Potassium Level 3.9 Chloride Level 122 Carbon Dioxide Level 21.9 Anion Gap 9 Estimat Glomerular Filtration Rate 24 Ammonia 33 Blood Gas Puncture Site LT RADIAL Blood Gas Patient Temperature 98.6 Blood Gas HCO3 21 Blood Gas Base Excess -2.0 Blood Gas Oxygen Saturation 93 Arterial Blood pH 7.45 Arterial Blood Partial Pressure CO2 31 Arterial Blood Partial Pressure O2 76 Arterial Blood Oxygen Content 17.8 Arterial Blood Carboxyhemoglobin 1.0 Arterial Blood Methemoglobin 0.9 Blood Gas Hemoglobin 13.5 Oxygen Delivery Device NASAL CANNULA Blood Gas Inspired Oxygen 36 Urine Color YELLOW Urine Turbidity HAZY Urine pH 5.0 Urine Specific [place] 1.020 Urine Protein NEG Urine Glucose (UA) NEG Urine Ketones NEG Urine Occult Blood LARGE Urine Nitrite NEG Urine Bilirubin NEG Urine Urobilinogen 2.0 Urine Leukocyte Esterase LARGE Urine RBC 3 Urine WBC 15 Urine WBC Clumps FEW Urine Squamous Epithelial Cells <1 Urine Bacteria MANY Urine Mucus FEW Microscopic Urinalysis Comment CULTURE INDICATED Nasal Screen MRSA (PCR) MRSA NOT DETECTED Date/Time Source Procedure Growth Status 10/26/16 13:00 Cerebral Spinal Fluid Lumbar Puncture Fungal Smear Pending Received 10/26/16 13:00 Cerebral Spinal Fluid Lumbar Puncture Fungal Culture Pending Received 10/30/16 12:25 Urine Clean Catch Urine Culture Pending Received Miguelito Branham PhD Oct 30, 2016 18:45
[2016-10-30] MEDS: RESP: ALBUTEROL 2.5 MG/IPRATROPIUM 0.5 MG NEB (SCH) NEB (20:47)
[2016-10-31] VITALS (8 sets, daily range): BP systolic 124–162; BP diastolic 64–91; PULSE 78–98; RESP 18–26; TEMP 98.8–100; O2SAT 93–96
[2016-10-31] MEDS: SODIUM CHLORIDE 0.9% IV SCH ×4 (02:00→20:54)
[2016-10-31] MEDS: METHYLPREDNISOLONE SO SUCC IV SCH ×4 (02:00→20:54)
[2016-10-31] MEDS: RESP: ALBUTEROL 2.5 MG/IPRATROPIUM 0.5 MG NEB (SCH) NEB ×4 (03:21→20:59)
[2016-10-31] MEDS: ACYCLOVIR INJ 900 MG in SODIUM CHLORIDE 0.9% INJ 150 ML IV SCH ×3 (06:44→20:54)
[2016-10-31] MEDS: INSULIN ASPART SUPPLEMENTAL SCALE SQ SCH ×4 (06:47→20:54)
--- NOTE | 2016-10-31 07:20 | MB ---
cc: JUAN MIGUEL DIAZ DATE OF CONSULTATION 10/30/[address] Syd Stratton REASON FOR CONSULTATION Evaluation of dizziness. HISTORY OF PRESENT ILLNESS Mr. Luong is a 66-year-old male who was admitted initially on October 06. He had shortness of breath. He was feeling dizzy and he was sent from the [facility]. The patient had a workup done. He has seen by neurologist and the impression was progressive dementia and the differential including vasculitis. 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 He was getting more short of breath. He was put on three liters nasal cannula. The patient is obtunded, barely responds, his is at the bedside who will provided most of the information. PAST MEDICAL HISTORY He has quite a significant history of: 1. Hypertension 2. Hernia surgery done twice. MEDICATIONS He is currently takin. Clonidine patch 2. Insulin on sliding scale 3. Lorazepam as needed 4. Solu-Medrol IV 250 mg q6 ALLERGIES HE IS ALLERGIC TO PENICILLIN. SOCIAL HISTORY He is . He has two children. No history of smoking, drinks socially. He is a retired. He used to work for sales of motorcycles. FAMILY HISTORY He has two children. REVIEW OF SYSTEMS Until a few months ago, he was riding a bicycle and doing everything for himself. No history of seizure, stroke, DVT or pulmonary embolism. PHYSICAL EXAMINATION This is a well-built, well-nourished male on three liters nasal cannula, obtunded, minimal response. VITAL SIGNS: Blood pressure 149/86, heart rate 97, respirations 20, temperature 98.4. HEENT: Pupils are equal and reactive. NECK: Supple. JVP not raised. CHEST: Equal bilaterally. Fair entry, rhonchi. CARDIAC: S1, S2 normal. ABDOMEN: soft, non tender EXTREMITIES: No edema. HEALTH INSURANCE AGENT: He has minimal response. LABORATORY DATA His lab evaluation WBC count is 7.7, hemoglobin 13.4, hematocrit 39.4, platelet count 147. Blood gas pH 7.45, pCO2 38, pO2 76. Sodium 153, chloride 3.9, chloride 122, pCO2 22, BUN 71, creatinine 2.70. IMPRESSION 1. Mild shortness of breath, need to rule out the possibility of aspiration. 2. CVA and altered mental status, possible vasculitis or infectious etiology versus Creutzfeldt-Juanjo disease. 3. Hypertension 4. Hypercholesterolemia 5. Hypercholesterolemia PLAN I discussed with the patient's , we will supplement his oxygen, give him aerosol treatment, frequent suction and aggressive pulmonary toilet. Neurology and neurosurgery are following the patient. Further treatment will dependent on the course in the hospital.. Thank you, Dr. Stratton for this consultation. MD MAYUR White/ARTEMIO /7:33 PM /6:59 AM LISBET
--- NOTE | 2016-10-31 07:48 | MB ---
cc: WENDY WAY MD DATE OF CONSULTATION 10/30/2016 REASON FOR CONSULTATION Elevated BUN and creatinine, for evaluation. HISTORY OF PRESENT ILLNESS This is a 66-year-old male known to me from before with past medical history of hypertension, diabetes mellitus, hyperlipidemia, history of depression, history of rapidly progressive dementia and altered mental status, history of possible chronic kidney disease who was admitted to the medical floor from the Psych department because of worsening mental status. I was called to see the patient because of elevated BUN and creatinine. The patient had elevated creatinine when he was in the Psych department and I saw him there and at that time the impression was that the patient has prerenal azotemia, he was not eating very good and his creatinine improved after he was getting the hydration. His creatinine was 1.7 and it improved to 1.2 to 1.4. Then he was discharged from Psych and admitted here 6 days ago because of worsening mental status. His creatinine on admission to the medical floor was 1.3 which is probably baseline and increased to 2.7 and then now is getting worse. The patient has been mainly admitted to the medical floor because of worsening shortness of breath and was seen by the Psych department and had a lumbar puncture done for CSF history and he was started on acyclovir. The patient remains drowsy and lethargic and so far as not shown significant improvement in his mental status. Today he was transferred to the intensive care unit because of worsening mental status and he has a Mcdaniel catheter inserted and has very good urine, dark colored, coming out of the Mcdaniel catheter. The patient is not able to give any history. Most of the history was taken from the patient's chart and some from the patient's family who is sitting in the bedside. PAST MEDICAL HISTORY 1. Hypertension. 2. Diabetes mellitus. 3. Hyperlipidemia. 4. Depression. 5. Possible chronic kidney disease. PAST SURGICAL HISTORY Umbilical hernia repair. REVIEW OF SYSTEMS Cannot be obtained since the patient is not answering any questions. SOCIAL HISTORY The patient is and has history of smoking cigars. He stopped about 7 years ago and occasionally drinks alcoholic beverages. FAMILY HISTORY Noncontributory. ALLERGIES HE IS ALLERGIC TO PENICILLIN. MEDICATIONS Currently he is on following medications - 1. IV fluid with potassium chloride at 100/hour. 2. DuoNeb nebulizer. 3. Acyclovir 500 mg IV q. 12 hours. 4. Lacosamide 100 mg IV q. 12 hours. 5. Methylprednisone ____ mg IV q. 6 hours. 6. Clonidine patch q. 7 days. 7. Insulin sliding scale. 8. Zofran as needed. 9. Narcan as needed. 10. Ativan as needed. PHYSICAL EXAMINATION GENERAL: The patient is drowsy, lethargic. He is currently on is nasal cannula. VITAL SIGNS: Last blood pressure recorded is 140/86, temperature is 98.5, oxygen saturation 94%. HEENT: Pupils are mid-constricted. Nonicteric sclerae. Conjunctivae are normal. NECK: Supple. JVD is slightly decreased. LUNGS: The patient has bilateral decreased air entry with occasional wheezing. HEART: S1, S2. ABDOMEN: Lax, distended. There is no tenderness. EXTREMITIES: He has mild edema in the legs. INVESTIGATIONS WBC count is 7.7, hemoglobin 13.4, platelet count 147, neutrophils 86%, eosinophils 0%. Sodium 153, potassium 3.9, chloride 132, bicarb 21.9, BUN 71, creatinine 2.7, glucose 209, total bilirubin is 1.2, AST is 50, ALT is 67. Ammonia level is 33. Total protein is 6.6 with albumin of 2.6. INR is 1.0, D-dimer 1.54. Urinalysis showing that there is no proteinuria. Large leukocyte esterase, RBC 15, WBC few, many clumps. ASH was negative. CSF showing WBCs 20, RBC 415, glucose 86, total protein 29.9. Herpes simplex virus negative 1 and 2. RPR is also nonreactive. Cultures are all pending. IMAGING STUDIES The patient had a chest x-ray done which shows lung stephen clear. MRI of the brain was done which shows no acute intracranial process. VQ scan of the lung was done which shows low probability of pulmonary embolism. Ultrasound of the kidney was done on October 12 and it showed that the patient has bilateral normal sized kidneys and no evidence of hydronephrosis, right renal cyst, both 2.5 cm. ASSESSMENT AND PLAN 1. Chronic kidney disease, acute kidney injury. 2. Encephalopathy. 3. Progressive dementia and myoclonus. 4. History of depression. 5. Diabetes mellitus. 6. Hypertension. The patient has been following with Infectious Disease and getting acyclovir right now for the possibility of infectious encephalitis. The acute kidney injury seems to be multifactorial including either prerenal or ATN from the infection or because of the toxicity of medication especially acyclovir or there is a possibility of obstructive uropathy since he has a lot of urine coming out after the Mcdaniel catheter was inserted. I agree with continuing intravenous fluid at present, check the urine sodium and osmolality and follow the urine output and the BUN and creatinine, adjust the dose of acyclovir if needed. Thank you for the consultation and I will follow the patient while he is in the hospital. Discussed with family at the bedside. MD JOSE Kern/ANTIONE /7:44 PM /7:21 AM
[2016-10-31] MEDS: LACOSAMIDE INJ 100 MG in SODIUM CHLORIDE 0.9% INJ 100 ML IV SCH ×2 (08:01→21:49)
[2016-10-31] MEDS: NS + KCL 20 MEQ INJ 1,000 ML IV SCH ×2 (08:02→20:53)
--- NOTE | 2016-10-31 09:32 | HHI.PR ---
Subjective Remarks Follow up mental status change, dyspnea. No change neurologically. Per at bedside, the patient appears more comfortable today. Still having diarrhea. Objective Vitals Vital Signs Date Time Temp Pulse Resp B/P (MAP) Pulse Ox O2 Delivery O2 Flow Rate FiO2 10/31/16 08:42 93 Nasal Cannula 4.00 10/31/16 08:00 99.6 97 18 149/91 (110) 96 10/31/16 04:00 99.6 97 18 151/88 (109) 96 10/31/16 00:00 100.0 98 22 125/69 (87) 93 10/30/16 20:48 93 Nasal Cannula 3.00 10/30/16 20:00 99.4 108 26 149/86 (107) 96 10/30/16 18:00 98.5 97 20 149/86 (107) 94 10/30/16 16:00 98.5 97 20 149/86 (107) 94 10/30/16 14:00 98.5 97 20 149/86 (107) 94 10/30/16 12:00 98.5 97 20 149/86 (107) 94 I/O 10/30/16 10/30/16 10/30/16 10/31/16 10/31/16 10/31/16 06:59 14:59 22:59 06:59 14:59 22:59 Intake Total 50 ml 1855 ml Output Total 851 ml 950 ml 2450 ml Balance -851 ml -900 ml -595 ml IV Total 50 ml 1855 ml Output Urine Total 850 ml 950 ml 2350 ml Stool Total 1 ml 100 ml # Bowel Movements 3 1 Result Diagram: 10/30/16 0704 10/30/16 0704 Imaging Last Impressions Chest X-Ray 10/30/16 0000 Signed Impressions: Service Date/Time: Sunday, October 30, 2016 11:21 - CONCLUSION: Underated otherwise negative. Rahat Frey MD FACR Lumbar Puncture Fluoroscopy 10/26/16 0000 Signed Impressions: Service Date/Time: October 12:24 - CONCLUSION: Uncomplicated fluoroscopically guided cervical puncture. Kranthi Lloyd MD Objective Remarks General: Elderly male in no acute distress. Heart: Regular rate and rhythm. No murmur. Lungs: Clear to auscultation bilaterally. No wheezes, rales, or rhonchi. Breathing is nonlabored. Abdomen: Soft, nontender, nondistended. Extremities: No lower extremity edema. Psych: Nonverbal. Does not respond to verbal stimuli. Does not follow commands. Skin: Rash on chest is improving. Procedures 10/26/16 C1-C2 puncture for CSF Urinary Catheter: No Vascular Central Line Catheter: No A/P Problem List: (1) GEOVANY (acute kidney injury) ICD Code: N17.9 - Acute kidney failure, unspecified Status: Acute (2) Rapidly progressive dementia ICD Code: F03.90 - Unspecified dementia without behavioral disturbance (3) Diabetes ICD Code: E11.9 - Type 2 diabetes mellitus without complications Status: Chronic (4) HTN (hypertension) ICD Code: I10 - Essential (primary) hypertension (5) Rash ICD Code: R21 - Rash and other nonspecific skin eruption Assessment and Plan 1. Acute mental status changes: Secondary to rapidly progressive dementia vs Parkinson's. Appreciate neurology recommendations. S/P cervical puncture. Awaiting CSF results. Neurosurgery deferred brain biopsy at this time. Continue steroids for possible vasculitis. Continue Vimpat. Doubt delirium. Imaging unremarkable. EEG shows some slowing. Repeat MRI brain ordered by neurology. 2. Dyslipidemia: Statin on hold. 3. Acute renal failure: Continue IV fluids. Monitor labs. Creatinine continues to increase. Appreciate nephrology recommendations. May be secondary to Acyclovir (dose changed by pharmacy due to decreased GFR). Labs are pending today. 4. Dysphagia: NPO per speech therapy. 5. Hypertension: Catapres patch. 6. Diabetes mellitus: A1c 5.6. Metformin on hold. Monitor Accu-checks and cover with sliding scale insulin. Glucose elevated secondary to steroids. 7. DVT prophylaxis: SCDs. 8. Rash: ? secondary to Keppra. Improving after Keppra discontinued. 9. Dyspnea, labored breathing: Improving. Appreciate pulmonology recommendations. CXR, ABG unremarkable. Continue supplemental oxygen, bronchodilators. Discharge Planning Patient may require transfer to tertiary care center. Miguel Stratton MD Oct 31, 2016 09:32
--- NOTE | 2016-10-31 11:47 | RADRPT ---
EXAM DATE/TIME: 10/31/2016 10:51 [facility] COMPARISON: MRI BRAIN W & W/O CONTRAST, October 07, 2016, 7:54. MRI BRAIN W & W/O CONTRAST, October 24, 2016, 9: 34. INDICATIONS : CVA. Unresponsive. MEDICAL HISTORY : Hypercholesterolemia. Diabetes mellitus type 2. SURGICAL HISTORY : Inguinal hernia repair. Tonsillectomy. ENCOUNTER: Initial ACUITY: 2 day PAIN SCORE: Nonresponsive. LOCATION: head TECHNIQUE: Multiplanar, multisequence MRI of the brain was performed without contrast. FINDINGS: There is subtle abnormality centered at the pinto-white junction in the right temporal lobe and right occipital lobe which may reflect cerebritis or encephalitis. No hemorrhage is identified. No fracture or fluid collections are present. Posterior fossa structures are unremarkable. CONCLUSION: 1. Subtle signal abdomen only at the pinto-white junction in the right hemisphere as above. The findin gs may reflect encephalitis or cerebritis Kranthi Lloyd MD on October 31, 2016 at 11:31 Board Certified Radiologist. This report was verified electronically.
[2016-10-31] MEDS ORDERED: FOSPHENYTOIN INJ 1,000 MGPE in SODIUM CHLORIDE 0.9% INJ 50 ML IV ONE (14:15)
[2016-10-31 16:00] LABS: BICARBONATE 28.1 MEQ/L (21.0-32.0); POTASSIUM 4.2 MEQ/L (3.5-5.1)
[2016-10-31 16:03] LABS: AUTOMATED NEUTROPHIL # 8.2 TH/MM3 (1.8-7.7); HEMATOCRIT 38.2 % (39.0-51.0); HEMO FLAGS DIFF FINAL; LYMPHOCYTE # 0.3 TH/MM3 (1.0-4.8); MEAN CELL VOLUME 90.4 FL (80.0-100.0); MEAN CORPUSCULAR HEMOGLOBIN 29.6 PG (27.0-34.0); MEAN CORPUSCULAR HGB CONC 32.8 % (32.0-36.0); PLATELET COUNT 106 TH/MM3 (150-450); RED BLOOD COUNT 4.23 MIL/MM3 (4.50-5.90); RED CELL DISTRIBUTION WIDTH 13.1 % (11.6-17.2); WHITE BLOOD COUNT 8.8 TH/MM3 (4.0-11.0)
--- NOTE | 2016-10-31 17:42 | HHI.NPPN ---
Subjective History of Present Illness 66-year-old male known to me from before with past medical history of hypertension, diabetes mellitus, hyperlipidemia, history of depression, history of rapidly progressive dementia and altered mental status, history of possible chronic kidney disease who was admitted to the medical floor from the Psych department because of worsening mental status. I was called to see the patient because of elevated BUN and creatinine. The patient had elevated creatinine when he was in the Psych department and I saw him there and at that time the impression was that the patient has prerenal azotemia, he was not eating very good and his creatinine improved after he was getting the hydration. His creatinine was 1.7 and it improved to 1.2 to 1.4. Additional Remarks Patient remain non verbal and unresponsive. Review of Systems General General Remarks Unresponsive and non verbal. Objective Data Data 10/31/16 11/01/16 19:00 07:00 Intake Total 1030 ml Balance 1030 ml IV Total 1030 ml Vital Signs Date Time Temp Pulse Resp B/P (MAP) Pulse Ox O2 Delivery O2 Flow Rate FiO2 10/31/16 16:00 99.0 78 18 124/64 (84) 96 10/31/16 12:00 99.3 78 18 162/89 (113) 96 10/31/16 08:42 93 Nasal Cannula 4.00 10/31/16 08:00 99.6 97 18 149/91 (110) 96 10/31/16 04:00 99.6 97 18 151/88 (109) 96 10/31/16 00:00 100.0 98 22 125/69 (87) 93 10/30/16 20:48 93 Nasal Cannula 3.00 10/30/16 20:00 99.4 108 26 149/86 (107) 96 10/30/16 18:00 98.5 97 20 149/86 (107) 94 -: 10/31/16 1508 10/31/16 1508 Physical Exam General Appearance Remarks Unresponsive and obtunded. Eyes Eye Exam: Pupils Equal Neck Neck Exam: Neck Supple Pulmonary Resp Exam: Breath Sounds Equal, No Distress, Rhonchi, Decreased Bases Cardiology CV Exam: Regular Gastrointestinal/Abdomen GI Exam: Soft, Non-Tender, Bowel Sounds Present, Non-Distended Extremeties Extremities Exam: Trace Edema Neurologic Neuro Exam: Obtunded, Unresponsive Assessment/Plan Assessment Summary: GEOVANY/Acute Renal Failure Problem List: (1) HTN (hypertension) ICD Codes: I10 - Essential (primary) hypertension (2) Diabetes ICD Codes: E11.9 - Type 2 diabetes mellitus without complications Status: Chronic (3) Seizure disorder ICD Codes: G40.909 - Epilepsy, unspecified, not intractable, without status epilepticus Status: Acute (4) Dyslipidemia ICD Codes: E78.5 - Hyperlipidemia, unspecified (5) Rapidly progressive dementia ICD Codes: F03.90 - Unspecified dementia without behavioral disturbance (6) GEOVANY (acute kidney injury) ICD Codes: N17.9 - Acute kidney failure, unspecified Status: Acute Plan Patient has improvement in the Creatinine. Urine Na. was not low. Most likely has pre renal or obs. uropathy. Now with Mcdaniel's catheter. Repeat MRI and EEG done. Neurology following. Continue IVF, avoid Nephrotoxins. Problem Qualifiers (1) Diabetes: Madhuri Lott MD Oct 31, 2016 17:42
--- NOTE | 2016-10-31 19:58 | HHI.PR ---
Subjective Remarks 66 YOWM with AMS, sz, renal insuff On NC No sig oral secretions Had EEG, started on Cerebyx at BS Objective Vital Signs Vital Signs Date Time Temp Pulse Resp B/P (MAP) Pulse Ox O2 Delivery O2 Flow Rate FiO2 10/31/16 16:00 99.0 78 18 124/64 (84) 96 10/31/16 12:00 99.3 78 18 162/89 (113) 96 10/31/16 08:42 93 Nasal Cannula 4.00 10/31/16 08:00 99.6 97 18 149/91 (110) 96 10/31/16 04:00 99.6 97 18 151/88 (109) 96 10/31/16 00:00 100.0 98 22 125/69 (87) 93 10/30/16 20:48 93 Nasal Cannula 3.00 10/30/16 20:00 99.4 108 26 149/86 (107) 96 I/O 10/30/16 10/30/16 10/30/16 10/31/16 10/31/16 10/31/16 07:00 15:00 23:00 07:00 15:00 23:00 Intake Total 50 ml 1855 ml 310 ml 720 ml Output Total 851 ml 950 ml 2450 ml 1650 ml Balance -851 ml -900 ml -595 ml 310 ml -930 ml IV Total 50 ml 1855 ml 310 ml 720 ml Output Urine Total 850 ml 950 ml 2350 ml 1400 ml Stool Total 1 ml 100 ml 250 ml # Bowel Movements 3 1 Result Diagram: 10/31/16 1508 10/31/16 1508 Objective Remarks GENERAL: WBWN male, unresponsive SKIN: Warm and dry. HEAD: Normocephalic. EYES: No scleral icterus. No injection or drainage. NECK: Supple, trachea midline. No JVD or lymphadenopathy. CARDIOVASCULAR: Regular rate and rhythm without murmurs, gallops, or rubs. RESPIRATORY: Breath sounds equal bilaterally. No accessory muscle use. GASTROINTESTINAL: Abdomen soft, non-tender, nondistended. MUSCULOSKELETAL: No cyanosis, or edema. BACK: Nontender without obvious deformity. No CVA tenderness. A/P Assessment and Plan AMS SZ disorder Renal insuff ? Cerebritis PLAN On nasal cannula Cerebyx per Neuro IV Solumedrol Monitor renal functions Neuro following pt. Stanley Malhotra MD Oct 31, 2016 19:57
--- NOTE | 2016-10-31 20:19 | HHI.PR ---
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 Plan - [place] Q4h - Vimpat 100mg Q12h - Acyclovir 900mg Q8h - Follow up csf - Continue solumedrol for possibility of vasculitis. - Keppra stopped, rash could be related to Keppra, - Continue Vimpat. add cerebyx due to eeg finding of bilateral pleds Diagnosis/Plan: Subjective Subjective Comments No acute events reported Active Medications Current Medications Medications (Trade) Dose Ordered Sig/Alyssa Route Start Time Stop Time Status Last Admin (NS Flush) 2 ml UNSCH PRN IV FLUSH 10/25/16 00:45 (NS Flush) 2 ml BID IV FLUSH 10/25/16 09:00 10/30/16 09:18 (Zofran Inj) 4 mg Q6H PRN IVP 10/25/16 00:45 (Narcan Inj) 0.4 mg UNSCH PRN IV 10/25/16 00:45 Methylprednisolone Sodium Succinate 250 mg/Sodium Chloride 50 ml @ 100 mls/hr Q6H IV 10/26/16 20:00 10/31/16 16:35 (Ativan Inj) 1 mg Q6H PRN IV 10/26/16 21:30 10/30/16 10:36 (Vasotec Inj) 1.25 mg Q6H PRN IV PUSH 10/26/16 21:30 10/27/16 13:35 Acyclovir Sodium 900 mg/Sodium Chloride 150 ml @ 150 mls/hr Q12H IV 10/27/16 22:00 10/31/16 12:15 Lacosamide 100 mg/ Sodium Chloride 110 ml @ 110 mls/hr Q12HR IV 10/27/16 21:00 10/31/16 08:01 Potassium Chloride/Sodium Chloride 1,000 ml @ 100 mls/hr Q10H IV 10/28/16 14:00 10/31/16 08:02 (Catapres-Tts 0.1mg Patch.7d) 1 patch Q7D T-DERMAL 10/29/16 16:00 10/29/16 16:58 (D50w (Syr) Inj) 50 ml UNSCH PRN IV 10/29/16 15:45 (Glucagon Inj) 1 mg UNSCH PRN OTHER 10/29/16 15:30 (NovoLOG SUPPLEMENTAL SCALE) 1 ACHS SLIDING SCALE SQ 10/29/16 16:00 10/31/16 16:00 Miscellaneous Information 1 Q7D T-DERMAL 11/05/16 16:00 (Duoneb Neb) 1 ampule Q6HR NEB NEB 10/30/16 22:00 10/31/16 15:54 (Cerebyx Inj) 100 mgpe Q8H IV 10/31/16 23:00 Allergies Allergies Coded Allergies penicillin G (Unverified Allergy, Severe, 10/17/16) Review of Systems All other ROS: ROS reviewed as documented in chart Exam I&O / VS 10/31/16 10/31/16 11/01/16 15:00 23:00 07:00 Intake Total 310 ml 720 ml Output Total 1650 ml Balance 310 ml -930 ml IV Total 310 ml 720 ml Output Urine Total 1400 ml Stool Total 250 ml Vital Signs Date Time Temp Pulse Resp B/P (MAP) Pulse Ox O2 Delivery O2 Flow Rate FiO2 10/31/16 16:00 99.0 78 18 124/64 (84) 96 10/31/16 12:00 99.3 78 18 162/89 (113) 96 10/31/16 08:42 93 Nasal Cannula 4.00 10/31/16 08:00 99.6 97 18 149/91 (110) 96 10/31/16 04:00 99.6 97 18 151/88 (109) 96 10/31/16 00:00 100.0 98 22 125/69 (87) 93 10/30/16 20:48 93 Nasal Cannula 3.00 Exam Comments minimaly arousable CN--PERRL, EOM intact MOTOR--no focal deficit. no myoconus at present Objective Radiology Results MRI--subtle signal abnormality right temporal / occipital lobe Micro and Labs Laboratory Tests Test 10/31/16 15:08 White Blood Count 8.8 Red Blood Count 4.23 Hemoglobin 12.5 Hematocrit 38.2 Mean Corpuscular Volume 90.4 Mean Corpuscular Hemoglobin 29.6 Mean Corpuscular Hemoglobin Concent 32.8 Red Cell Distribution Width 13.1 Platelet Count 106 Mean Platelet Volume 8.1 Neutrophils (%) (Auto) 93.0 Lymphocytes (%) (Auto) 3.0 Monocytes (%) (Auto) 4.0 Eosinophils (%) (Auto) 0.0 Basophils (%) (Auto) 0.0 Neutrophils # (Auto) 8.2 Lymphocytes # (Auto) 0.3 Monocytes # (Auto) 0.3 Eosinophils # (Auto) 0.0 Basophils # (Auto) 0.0 CBC Comment DIFF FINAL Differential Comment Blood Urea Nitrogen 47 Creatinine 1.34 Random Glucose 246 Calcium Level 8.0 Sodium Level 156 Potassium Level 4.2 Chloride Level 124 Carbon Dioxide Level 28.1 Anion Gap 4 Estimat Glomerular Filtration Rate 53 Complement C3 109 Complement C4 23 Date/Time Source Procedure Growth Status 10/26/16 13:00 Cerebral Spinal Fluid Lumbar Puncture Fungal Smear - Final NO FUNGAL ELEMENTS SEEN. Resulted 10/26/16 13:00 Cerebral Spinal Fluid Lumbar Puncture Fungal Culture Pending Resulted 10/30/16 12:25 Urine Clean Catch Urine Culture - Preliminary Gram Negative Gopi Resulted Diagnostic Tests csf 14-3-3 protein result pending Miguelito Branham PhD Oct 31, 2016 20:19
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
[2016-10-31] MEDS: SODIUM CHLORIDE 0.9% FLUSH 10 ML FLUSH IV FLUSH SCH (20:53)
[2016-10-31] MEDS: FOSPHENYTOIN SODIUM 100 MG PE/2 ML VIAL IV SCH (21:51)
[2016-11-01] VITALS (15 sets, daily range): BP systolic 99–145; BP diastolic 57–86; PULSE 71–108; RESP 16–33; TEMP 98.3–101.4; O2SAT 91–100
[2016-11-01] MEDS: SODIUM CHLORIDE 0.9% IV SCH ×4 (01:53→20:16)
[2016-11-01] MEDS: METHYLPREDNISOLONE SO SUCC IV SCH ×4 (01:53→20:16)
[2016-11-01] MEDS: NS + KCL 20 MEQ INJ 1,000 ML IV SCH (01:55)
[2016-11-01] MEDS: RESP: ALBUTEROL 2.5 MG/IPRATROPIUM 0.5 MG NEB (SCH) NEB ×4 (02:46→19:35)
[2016-11-01] MEDS: FOSPHENYTOIN SODIUM 100 MG PE/2 ML VIAL IV SCH ×3 (06:17→20:22)
[2016-11-01] MEDS: INSULIN ASPART SUPPLEMENTAL SCALE SQ SCH ×4 (06:17→20:17)
[2016-11-01] MEDS: SODIUM CHLORIDE 0.9% FLUSH 10 ML FLUSH IV FLUSH SCH ×2 (08:36→20:17)
[2016-11-01] MEDS: ACYCLOVIR INJ 900 MG in SODIUM CHLORIDE 0.9% INJ 150 ML IV SCH ×2 (08:38→20:15)
[2016-11-01 08:53] LABS: BICARBONATE 26.2 MEQ/L (21.0-32.0); POTASSIUM 4.2 MEQ/L (3.5-5.1)
[2016-11-01] MEDS ORDERED: POTASSIUM CHLORIDE INJ 20 MEQ, SODIUM CHLORIDE 23.4% INJ 38.5 MEQ in WATER STERILE FOR ... IV SCH (09:00)
[2016-11-01] MEDS: LACOSAMIDE INJ 100 MG in SODIUM CHLORIDE 0.9% INJ 100 ML IV SCH ×3 (09:32→20:16)
--- NOTE | 2016-11-01 09:38 | HHI.PR ---
Subjective Remarks Follow up mental status change, hypernatremia. No change neurologically. Family not at bedside. No events overnight per nursing. Objective Vitals Vital Signs Date Time Temp Pulse Resp B/P (MAP) Pulse Ox O2 Delivery O2 Flow Rate FiO2 11/01/16 08:58 96 Nasal Cannula 4.00 11/01/16 04:00 98.3 90 33 145/86 (105) 91 11/01/16 00:00 99.0 80 21 128/76 (93) 96 10/31/16 20:59 95 Nasal Cannula 4.00 10/31/16 20:00 98.8 80 26 134/76 (95) 95 10/31/16 16:00 99.0 78 18 124/64 (84) 96 10/31/16 12:00 99.3 78 18 162/89 (113) 96 I/O 10/31/16 10/31/16 10/31/16 11/01/16 11/01/16 11/01/16 07:00 15:00 23:00 07:00 15:00 23:00 Intake Total 1855 ml 310 ml 720 ml 0 ml 430 ml Output Total 2450 ml 1650 ml 1500 ml Balance -595 ml 310 ml -930 ml -1500 ml 430 ml Intake Oral 0 ml IV Total 1855 ml 310 ml 720 ml 430 ml Output Urine Total 2350 ml 1400 ml 1300 ml Stool Total 100 ml 250 ml 200 ml Result Diagram: 10/31/16 1508 11/01/16 0658 Imaging Last Impressions Brain MRI 10/31/16 0000 Signed Impressions: Service Date/Time: Monday, October 31, 2016 10:51 - CONCLUSION: 1. Subtle signal abdomen only at the pinto-white junction in the right hemisphere as above. The findings may reflect encephalitis or cerebritis Kranthi Lloyd MD Chest X-Ray 10/30/16 0000 Signed Impressions: Service Date/Time: Sunday, October 30, 2016 11:21 - CONCLUSION: Underated otherwise negative. Rahat Frey MD FACR Lumbar Puncture Fluoroscopy 10/26/16 0000 Signed Impressions: Service Date/Time: October 12:24 - CONCLUSION: Uncomplicated fluoroscopically guided cervical puncture. Kranthi Lloyd MD Objective Remarks General: Elderly male in no acute distress. Heart: Regular rate and rhythm. No murmur. Lungs: Clear to auscultation bilaterally. No wheezes, rales, or rhonchi. Breathing is nonlabored. Abdomen: Soft, nontender, nondistended. Extremities: No lower extremity edema. Psych: Nonverbal. Does not respond to verbal stimuli. Does not follow commands. Procedures 10/26/16 C1-C2 puncture for CSF Urinary Catheter: Yes Assessment to: Continue Mcdaniel insert reason: Obstruction/Retention Vascular Central Line Catheter: No A/P Problem List: (1) GEOVANY (acute kidney injury) ICD Code: N17.9 - Acute kidney failure, unspecified Status: Acute (2) Rapidly progressive dementia ICD Code: F03.90 - Unspecified dementia without behavioral disturbance (3) Diabetes ICD Code: E11.9 - Type 2 diabetes mellitus without complications Status: Chronic (4) HTN (hypertension) ICD Code: I10 - Essential (primary) hypertension (5) Rash ICD Code: R21 - Rash and other nonspecific skin eruption Assessment and Plan 1. Acute mental status changes: Secondary to rapidly progressive dementia vs Parkinson's. Appreciate neurology recommendations. S/P cervical puncture. Awaiting CSF results. Neurosurgery deferred brain biopsy at this time. Continue steroids for possible vasculitis. Continue Vimpat. Doubt delirium. Imaging unremarkable. EEG shows some slowing. Repeat MRI brain report noted (? encephalitis/cerebritis). ?Creutzfeldt-Juanjo disease 2. Dyslipidemia: Statin on hold. 3. Acute renal failure: Continue IV fluids. Monitor labs. Creatinine continues to increase. Appreciate nephrology recommendations. May be secondary to Acyclovir (dose changed by pharmacy due to decreased GFR). Labs are pending today. 4. Dysphagia: NPO per speech therapy. 5. Hypertension: Catapres patch. 6. Diabetes mellitus: A1c 5.6. Metformin on hold. Monitor Accu-checks and cover with sliding scale insulin. Glucose elevated secondary to steroids. 7. DVT prophylaxis: SCDs. 8. Rash: ? secondary to Keppra. Resolved after Keppra discontinued. 9. Dyspnea, labored breathing: Improved. Appreciate pulmonology recommendations. CXR, ABG unremarkable. Continue supplemental oxygen, bronchodilators. 10. Hypernatremia: Adjust IV fluids. Recheck labs this afternoon. Appreciate nephrology recommendations. Discharge Planning Patient may require transfer to tertiary care center. Problem Qualifiers (1) Diabetes: Miguel Stratton MD Nov 01, 2016 09:38
[2016-11-01] MEDS ORDERED: FOSPHENYTOIN SODIUM 100 MG PE/2 ML VIAL IV ONE (10:30)
[2016-11-01] MEDS ORDERED: FOSPHENYTOIN INJ 300 MGPE in SODIUM CHLORIDE 0.9% INJ 50 ML IV ONE (11:00)
[2016-11-01] MEDS: LORazepam 2 MG/ML VIAL IV PRN (11:17)
[2016-11-01] MEDS ORDERED: MIDAZOLAM HCL 5 MG/ML VIAL (1 ML) ONE (11:53)
[2016-11-01] MEDS ORDERED: ETOMIDATE 20 MG/10 ML VIAL ONE (11:53)
[2016-11-01] MEDS ORDERED: ROCURONIUM INJ 50 MG/5 ML VIAL ONE (11:54)
--- NOTE | 2016-11-01 12:24 | HHI.PR ---
Review/Management Diagnosis Creutzfeldt-Juanjo is less likely with negative csf 14-3-3 protein and MRI appearance. CSF is negative for infectious etiology---csf cultures no growth, cryptococcal ag in csf negative, negative fungal stain. HSV PCR in csf also negative. This may be an autoimmune encephalitis, possibly paraneoplastic, vasculitic or NMDA-receptor encephalitis. The absence of stroke on MRI is against a vasculitis. A normal MRI or MRI with subtle findings on flair can be seen in NMDA receptor encephalitis He is also having sz on eeg--these did respond to iv ativan Plan Consult [facility] to consider intubation and beginning versed drip for seizure control. THe response to ativan suggests sz may respond to versed start ivig in addition to the iv solumedrol for possible auto-immune encephalitis. Will send anti-NMDA receptor antibody. When stable, proceed with CT or MRI of abdomen and chest to assess for possible malignancy (?paraneoplastic encephalitis) Consult ID to be sure no other infectious considerations. However, csf so far negative for infection and his clinical course is not typical of infectious encephalitis--gradually progressive over 6-8 weeks, no headaches, no fevers. Diagnosis/Plan: Subjective Subjective Comments pt has developed more generalized sz activity especially RUE Active Medications Current Medications Medications (Trade) Dose Ordered Sig/Alyssa Route Start Time Stop Time Status Last Admin (NS Flush) 2 ml UNSCH PRN IV FLUSH 10/25/16 00:45 (NS Flush) 2 ml BID IV FLUSH 10/25/16 09:00 11/01/16 08:36 (Zofran Inj) 4 mg Q6H PRN IVP 10/25/16 00:45 (Narcan Inj) 0.4 mg UNSCH PRN IV 10/25/16 00:45 Methylprednisolone Sodium Succinate 250 mg/Sodium Chloride 50 ml @ 100 mls/hr Q6H IV 10/26/16 20:00 11/01/16 08:35 (Ativan Inj) 1 mg Q6H PRN IV 10/26/16 21:30 11/01/16 11:17 (Vasotec Inj) 1.25 mg Q6H PRN IV PUSH 10/26/16 21:30 10/27/16 13:35 Acyclovir Sodium 900 mg/Sodium Chloride 150 ml @ 150 mls/hr Q12H IV 10/27/16 22:00 11/01/16 08:38 (Catapres-Tts 0.1mg Patch.7d) 1 patch Q7D T-DERMAL 10/29/16 16:00 10/29/16 16:58 (D50w (Syr) Inj) 50 ml UNSCH PRN IV 10/29/16 15:45 (Glucagon Inj) 1 mg UNSCH PRN OTHER 10/29/16 15:30 (NovoLOG SUPPLEMENTAL SCALE) 1 ACHS SLIDING SCALE SQ 10/29/16 16:00 11/01/16 10:57 Miscellaneous Information 1 Q7D T-DERMAL 11/05/16 16:00 (Duoneb Neb) 1 ampule Q6HR NEB NEB 10/30/16 22:00 11/01/16 08:57 Potassium Chloride 20 meq/ Sodium Chloride 38.5 meq/Sterile Water 1,019.625 ml @ 42 mls/hr Q24H IV 11/01/16 09:00 11/01/16 09:32 Lacosamide 100 mg/ Sodium Chloride 110 ml @ 110 mls/hr Q6H IV 11/01/16 15:00 (Cerebyx Inj) 100 mgpe Q6HR NEB IV 11/01/16 16:00 (Ativan Inj) 1 mg NOW ONCE IV PUSH 11/01/16 12:00 11/01/16 12:01 UNV (Ativan Inj) 1 mg ONCE PRN IV PUSH 11/01/16 12:00 11/01/16 13:00 UNV Allergies Allergies Coded Allergies penicillin G (Unverified Allergy, Severe, 10/17/16) Review of Systems All other ROS: ROS reviewed as documented in chart Exam I&O / VS 11/01/16 11/01/16 11/02/16 14:59 22:59 06:59 Intake Total 745 ml Balance 745 ml IV Total 745 ml Vital Signs Date Time Temp Pulse Resp B/P (MAP) Pulse Ox O2 Delivery O2 Flow Rate FiO2 11/01/16 10:00 89 11/01/16 08:58 96 Nasal Cannula 4.00 11/01/16 08:00 100.4 80 20 145/79 (101) 95 11/01/16 08:00 80 11/01/16 04:00 98.3 90 33 145/86 (105) 91 11/01/16 00:00 99.0 80 21 128/76 (93) 96 10/31/16 20:59 95 Nasal Cannula 4.00 10/31/16 20:00 98.8 80 26 134/76 (95) 95 10/31/16 16:00 99.0 78 18 124/64 (84) 96 Exam Comments minimaly arousable CN--PERRL, EOM intact MOTOR--no focal deficit. had rhythmic rue twitching Objective Micro and Labs Laboratory Tests Test 10/31/16 15:08 10/31/16 20:19 11/01/16 06:58 White Blood Count 8.8 Red Blood Count 4.23 Hemoglobin 12.5 Hematocrit 38.2 Mean Corpuscular Volume 90.4 Mean Corpuscular Hemoglobin 29.6 Mean Corpuscular Hemoglobin Concent 32.8 Red Cell Distribution Width 13.1 Platelet Count 106 Mean Platelet Volume 8.1 Neutrophils (%) (Auto) 93.0 Lymphocytes (%) (Auto) 3.0 Monocytes (%) (Auto) 4.0 Eosinophils (%) (Auto) 0.0 Basophils (%) (Auto) 0.0 Neutrophils # (Auto) 8.2 Lymphocytes # (Auto) 0.3 Monocytes # (Auto) 0.3 Eosinophils # (Auto) 0.0 Basophils # (Auto) 0.0 CBC Comment DIFF FINAL Differential Comment Blood Urea Nitrogen 47 45 Creatinine 1.34 1.26 Random Glucose 246 271 Calcium Level 8.0 8.1 Sodium Level 156 159 Potassium Level 4.2 4.2 Chloride Level 124 124 Carbon Dioxide Level 28.1 26.2 Anion Gap 4 9 Estimat Glomerular Filtration Rate 53 57 Complement C3 109 Complement C4 23 Ammonia 27 Phenytoin (Dilantin) Level 12.9 Date/Time Source Procedure Growth Status 10/26/16 13:00 Cerebral Spinal Fluid Lumbar Puncture Fungal Smear - Final NO FUNGAL ELEMENTS SEEN. Resulted 10/26/16 13:00 Cerebral Spinal Fluid Lumbar Puncture Fungal Culture Pending Resulted 10/30/16 12:25 Urine Clean Catch Urine Culture - Final Escherichia Coli Complete Diagnostic Tests CSF 14-3-3 protein is negative. Miguelito Branham PhD Nov 01, 2016 12:24
--- NOTE | 2016-11-01 12:26 | PD.CONS ---
[facility] Service Critical Care Medicine Consult Requested By Dr. Branham Reason for Consult Status epilepticus Acute encephalopathy Encephalitis/cerebritis of unknown etiology Primary Care Physician [facility] History of Present Illness This is a 66-year-old man with history of diabetes, hypertension, dyslipidemia who about a month ago started having difficulty with balance with shuffling type of gait and resting tremor along with recent cognitive decline as well. His initial admission was on 10/06/16, as initial workup was negative patient was admitted to psych unit on 10/06/16 for suicidal ideations and altered mental status. He was evaluated by neurology Dr Branham, possibility of Parkinsonian symptoms and vitamin B 12 deficiency was entertained, but there was no improvement with treatment. He was re admitted to hospitalist service with worsening mental status on 10/25/16. Per Dr. Branham, MRI showed possible cerebritis. Differential included Creutzfeldt-Ministerio. But 14-3-3 protein for Creutzfeldt-Ministerio was negative. Currently on acyclovir for possibility of viral cerebritis. EEG done 10/24/16 showed generalized epileptiform activity. Patient was placed on Cerebyx, Keppra. Keppra was DCd due to rash and currently patient is on Cerebyx and Vimpat. Repeat EEGs from 10/31/16 and today shows continued seizure activity/subclinical seizures. Patient continues to be encephalopathic not responding. EEG today shows continued seizure activity indicating status epilepticus. Critical-care medicine was consulted by Dr. Branham today for continuous Versed infusion after intubation I evaluated the patient in ICU. He barely opens his eyes to painful stimuli localizes with right upper extremity withdrawal of any other extremities. Discussed with Dr. Branham multiple times. In his opinion, this appears to be a autoimmune encephalitis less likely to be infectious. Anti-NMDA receptor antibody ordered. Per Dr. Branham D/D possibly paraneoplastic, vasculitic or NMDA- receptor encephalitis. Currently patient is on IV Solu-Medrol and IVIG had been ordered by Dr. Branham. Initiate continuous EEG monitoring. TTP/HUS unlikely, but patient has E Coli UTI, I have asked for peripheral smear review by pathologist Review of Systems ROS Limitations: Altered Mental Status, Unresponsive Past Family Social History Allergies: Coded Allergies: penicillin G (Unverified Allergy, Severe, 10/17/16) Past Medical History Hypertension Diabetes Dyslipidemia Depression Progressive rapid cognitive rapid cognitive decline with ataxia for 1 month Past Surgical History Umbilical hernia repair Reported Medications Carbidopa-Levodopa 25-100 Mg Tab 1 Tab PO Q12HR Vistaril (Hydroxyzine Pamoate) 25 Mg Cap 25 Mg PO HS 10 Days Meclizine (Meclizine HCl) 12.5 Mg Tab 12.5 Mg PO TID PRN Clotrimazole Topical (Clotrimazole) 1% Cream 1 Applic TOPICAL DAILY Metformin (Metformin HCl) 500 Mg Tab 500 Mg PO BID Triamcinolone Topical (Triamcinolone Acetonide) 0.1% Cream 1 Applic TOPICAL DAILY Zoloft (Sertraline HCl) 50 Mg Tab 25 Mg PO DAILY 7 Days Atorvastatin (Atorvastatin Calcium) 20 Mg Tab 10 Mg PO HS Active Ordered Medications Reviewed Family History Positive for cancer and depression Social History History of smoking cigars but quit 6-7 years ago. One drink of alcoholic beverages every 2-3 days per history Physical Exam Vital Signs Vital Signs Date Time Temp Pulse Resp B/P (MAP) Pulse Ox O2 Delivery O2 Flow Rate FiO2 11/01/16 10:00 89 11/01/16 08:58 96 Nasal Cannula 4.00 11/01/16 08:00 100.4 80 20 145/79 (101) 95 11/01/16 08:00 80 11/01/16 04:00 98.3 90 33 145/86 (105) 91 11/01/16 00:00 99.0 80 21 128/76 (93) 96 10/31/16 20:59 95 Nasal Cannula 4.00 10/31/16 20:00 98.8 80 26 134/76 (95) 95 10/31/16 16:00 99.0 78 18 124/64 (84) 96 Physical Exam GENERAL: Well-developed well-nourished, unresponsive and severely encephalopathic SKIN: Warm and dry. No lesions noted. HEENT: Normocephalic. Pupils equal 2 mm nonreactive. Disconjugate gaze CARDIOVASCULAR: Regular rate and rhythm. No murmur appreciated. RESPIRATORY: No accessory muscle use. Clear to auscultation. Breath sounds equal bilaterally. GASTROINTESTINAL: Abdomen soft, non-tender, nondistended. Bowel sounds x4. MUSCULOSKELETAL: No obvious deformities. No clubbing or cyanosis. No edema. NEUROLOGICAL: Patient is unresponsive. Pupils 2 mm millimeter unreactive with disconjugate gaze. To noxious stimuli there is partial eye opening, localizes with right upper extremity slight withdrawal of the right lower extremity. No movement on the left upper and lower extremity Laboratory Laboratory Tests Test 10/31/16 15:08 10/31/16 20:19 11/01/16 06:58 White Blood Count 8.8 Red Blood Count 4.23 Hemoglobin 12.5 Hematocrit 38.2 Mean Corpuscular Volume 90.4 Mean Corpuscular Hemoglobin 29.6 Mean Corpuscular Hemoglobin Concent 32.8 Red Cell Distribution Width 13.1 Platelet Count 106 Mean Platelet Volume 8.1 Neutrophils (%) (Auto) 93.0 Lymphocytes (%) (Auto) 3.0 Monocytes (%) (Auto) 4.0 Eosinophils (%) (Auto) 0.0 Basophils (%) (Auto) 0.0 Neutrophils # (Auto) 8.2 Lymphocytes # (Auto) 0.3 Monocytes # (Auto) 0.3 Eosinophils # (Auto) 0.0 Basophils # (Auto) 0.0 CBC Comment DIFF FINAL Differential Comment Blood Urea Nitrogen 47 45 Creatinine 1.34 1.26 Random Glucose 246 271 Calcium Level 8.0 8.1 Sodium Level 156 159 Potassium Level 4.2 4.2 Chloride Level 124 124 Carbon Dioxide Level 28.1 26.2 Anion Gap 4 9 Estimat Glomerular Filtration Rate 53 57 Complement C3 109 Complement C4 23 Ammonia 27 Phenytoin (Dilantin) Level 12.9 Date/Time Source Procedure Growth Status 10/26/16 13:00 Cerebral Spinal Fluid Lumbar Puncture Fungal Smear - Final NO FUNGAL ELEMENTS SEEN. 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 Monitor levels - Workup negative for infectious encephalitis including CJD - Ongoing workup for autoimmune encephalitis, anti-NMDA receptor antibody pending - CT of the chest abdomen pelvis to rule out malignancy - Continue acyclovir, ID consulted - Continue IV Solu-Medrol and IVIG per Dr. Branham - TTP/HUS possible with E Coli UTI, but thrombocytopenia has resolved. Peripheral smear review requeted RESP: Acute respiratory failure - Intubated for failure to protect airway from status epilepticus - ACV 16/550/5 50%, and dilated bundle - DuoNeb every 6 hours and when necessary - SBT after sz control CV: - Normal saline IV fluids 75 ml per hour, not on any pressors at this time GI: - Replace NG tube and start tube feedings. IV Protonix for GI prophylaxis : Acute kidney failure - Creatinine steadily improving. Monitor renal function closely. Mcdaniel catheter. - Continue with careful hydration ID: Encephalitis is probably noninfectious E Coli UTI - Continue empiric acyclovir - Start Rocephin for Escherichia coli UTI - TTP/HUS possible but thrombocytopenia has resolved. Check peripheral smear HEME: - Monitor CBC, CMP, coags - Thrombocytopenia has resolved ENDO: Type 2 diabetes - Electrolyte replacement per protocol - Sliding-scale insulin PROPH: - Bilateral lower extremity SCDs. Lovenox 40 mg subcutaneous daily starting . IV Protonix LINES: - Utilize peripheral IVs, central line if needed CC time 95 min excluding procedures Patient remains very critically ill with ongoing status epilepticus inability to protect airway. He was intubated and placed on mechanical ventilation and continuous Versed infusion, will request continuous EEG monitoring. Code Status Full Discussed Condition With Dr. Branham, Stella Mo MD Nov 01, 2016 12:25
[2016-11-01] MEDS ORDERED: LORazepam 2 MG/ML VIAL IV PUSH ONE (12:30)
[2016-11-01] MEDS: MIDAZOLAM 100 MG/NS 100 ML DRIP Premix IV PRN (12:34)
[2016-11-01] MEDS ORDERED: ETOMIDATE 20 MG/10 ML VIAL IV PUSH ONE (12:45)
[2016-11-01] MEDS ORDERED: ROCURONIUM INJ 50 MG/5 ML VIAL IV ONE (12:45)
[2016-11-01] MEDS ORDERED: MIDAZOLAM HCL 5 MG/ML VIAL (1 ML) IV ONE (12:45)
[2016-11-01] MEDS ORDERED: LORazepam 2 MG/ML VIAL IV PUSH PRN (13:00)
[2016-11-01] MEDS ORDERED: diphenhydrAMINE HCL 50 MG/ML VIAL IV PUSH PRN (13:15)
[2016-11-01] MEDS ORDERED: cefTRIAXone INJ 1,000 MG in SODIUM CHLORIDE 0.9% INJ 100 ML IV SCH (13:45)
[2016-11-01] MEDS ORDERED: POTASSIUM PHOSPHATE INJ 30 MMOL in SODIUM CHLOR 0.9% 250 ML INJ 250 ML IV PRN (14:00)
[2016-11-01] MEDS ORDERED: MAGNESIUM OXIDE 400 MG TAB PO PRN (14:00)
[2016-11-01] MEDS ORDERED: POTASSIUM CHLOR 40 MEQ PREMIX 100 ML IV PRN ×2 (14:00)
[2016-11-01] MEDS ORDERED: MAGNESIUM SULFATE INJ 4 GM in SODIUM CHLORIDE 0.9% INJ 92 ML IV PRN (14:00)
[2016-11-01] MEDS ORDERED: MAGNESIUM SULFATE INJ 2 GM in SODIUM CHLORIDE 0.9% INJ 96 ML IV PRN (14:00)
[2016-11-01] MEDS ORDERED: POTASSIUM CHLOR 20 MEQ PREMIX 100 ML IV PRN ×2 (14:00)
[2016-11-01] MEDS ORDERED: POTASSIUM CHLORIDE 25 MEQ EFFERVESCENT TAB PO PRN (14:00)
[2016-11-01] MEDS ORDERED: SODIUM PHOSPHATE INJ 30 MMOL in SODIUM CHLOR 0.9% 250 ML INJ 240 ML IV PRN (14:00)
[2016-11-01] MEDS ORDERED: POTASSIUM PHOSPHATE MONOBASIC 500 MG TAB PO/TUBE PRN (14:00)
[2016-11-01] MEDS ORDERED: POTASSIUM PHOSPHATE MONOBASIC 500 MG TAB PO PRN (14:00)
[2016-11-01] MEDS: IMMUNE GLOBULIN INJ 35 GM in SYRINGE/BAG 1 EA IV SCH (14:11)
--- NOTE | 2016-11-01 14:14 | RADRPT ---
EXAM DATE/TIME: 11/01/2016 13:10 [facility] COMPARISON: CHEST SINGLE AP, October 30, 2016, 11:21. INDICATIONS : Respiratory failure. MEDICAL HISTORY : Hypercholesterolemia. Diabetes mellitus type 2. CVA. SURGICAL HISTORY : Inguinal hernia repair. Tonsillectomy ENCOUNTER: Subsequent ACUITY: 1 week PAIN SCORE: Non-responsive. LOCATION: Bilateral chest FINDINGS: A single view of the chest demonstrates the lungs to be symmetrically aerated without evidence of mas s, infiltrate or effusion. Support apparatus in good position. The cardiomediastinal contours are u nremarkable. Osseous structures are intact. CONCLUSION: ET and nasogastric in good position. Lungs are clear. Rahat Frey MD FACR on November 01, 2016 at 14:12 Board Certified Radiologist. This report was verified electronically.
[2016-11-01 14:21] LABS: BICARBONATE 27.4 MEQ/L (21.0-32.0); POTASSIUM 4.1 MEQ/L (3.5-5.1)
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
--- NOTE | 2016-11-01 15:01 | PD.PROCEDR ---
Procedure Note Procedure Indication: Statue Epilepticus, inability to protect airway INTUBATION: The patient was put in optimal position for the procedure. Rapid sequence intubation was initiated by me using 20 milligrams of etomidate IV and 5 milligrams of versed IV and Rocuronium 50 mg IV. DL Mac 4 Grade 1 view, single attempt. The patient was intubated with a cuffed 8.0 endotracheal tube. Tube placement was confirmed by visualization of the tube and balloon passing through the cords, capnometry and subsequent chest x-ray. Breath sounds were equal and well aerated bilaterally postintubation. No breath sounds over stomach. Patient tolerated procedure well. Stella Corey MD Nov 01, 2016 15:00
[2016-11-01] MEDS ORDERED: SODIUM CHLOR 0.45% 500 ML INJ 500 ML IV ONE (15:45)
[2016-11-01] MEDS ORDERED: cefTRIAXone INJ 2,000 MG in SODIUM CHLORIDE 0.9% INJ 100 ML IV SCH (16:00)
[2016-11-01] MEDS: SODIUM CHLOR 0.45% 1000 ML INJ 1,000 ML IV SCH ×2 (16:30→20:16)
[2016-11-01] MEDS: PANTOPRAZOLE SODIUM 40 MG VIAL IV PUSH SCH (16:54)
[2016-11-01] MEDS: FREE WATER OG-TUBE SCH ×2 (16:58→23:38)
--- NOTE | 2016-11-01 16:58 | RADRPT ---
EXAM DATE/TIME: 11/01/2016 15:59 [facility] COMPARISON: No previous studies available for comparison. INDICATIONS : Evaluate for malignancy. RADIATION DOSE: 5.18 CTDIvol (mGy) ; Combined studies - Thorax/Abdomen/Pelvis MEDICAL HISTORY : Diabetes mellitus type 1. SURGICAL HISTORY : Umbilical hernia repair. ENCOUNTER: Initial ACUITY: 1 day PAIN SCALE: Non-responsive LOCATION: chest TECHNIQUE: Volumetric scanning of the chest was performed. Using automated exposure control and adjustment of t he mA and/or kV according to patient size, radiation dose was kept as low as reasonably achievable to obtain optimal diagnostic quality images. DICOM format image data is available electronically for r eview and comparison. Follow-up recommendations for detected pulmonary nodules are based at a minimum on nodule size and pa tient risk factors according to Fleischner Society Guidelines. FINDINGS: LUNGS: Marked bibasilar parenchymal changes are present worse on the left without significant pleural effusi on. PLEURAE: There is no significant pleural effusion. MEDIASTINUM: The heart and great vessels demonstrate no acute abnormality. There is minimal left axillary adenopa thy. There is no significant mediastinal adenopathy. There is no pericardial effusion.. MUSCULOSKELETAL: Within normal limits for patient age. MISCELLANEOUS: Nasogastric tubes across the GE junction. CONCLUSION: Minimal nonspecific adenopathy the bibasilar parenchymal changes worse on the left. Rahat Frey MD FACR on November 01, 2016 at 16:54 Board Certified Radiologist. This report was verified electronically.
--- NOTE | 2016-11-01 17:01 | RADRPT ---
EXAM DATE/TIME: 11/01/2016 16:04 [facility] COMPARISON: No previous studies available for comparison. INDICATIONS : Evaluate for malignancy. ORAL CONTRAST: No oral contrast ingested. RADIATION DOSE: 5.18 CTDIvol (mGy) ; Combined studies - Thorax/Abdomen/Pelvis MEDICAL HISTORY : Diabetes mellitus type 1. SURGICAL HISTORY : Umbilical hernia repair. ENCOUNTER: Initial ACUITY: 1 day PAIN SCALE: Non-responsive LOCATION: abdomen TECHNIQUE: Volumetric scanning of the abdomen and pelvis was performed. Using automated exposure control and ad justment of the mA and/or kV according to patient size, radiation dose was kept as low as reasonably achievable to obtain optimal diagnostic quality images. DICOM format image data is available electro nically for review and comparison. FINDINGS: LIVER: Homogeneous density without lesion. There is no dilation of the biliary tree. No calcified gallston es. SPLEEN: Normal size without lesion. PANCREAS: Within normal limits. KIDNEYS: Incidental 1 cm right renal cyst. Nonobstructing 1 mm stone on the left. ADRENAL GLANDS: Within normal limits. VASCULAR: There is no aortic aneurysm. BOWEL/MESENTERY: Minimal bowel wall thickening in the colon nonspecific at this point. ABDOMINAL WALL: Within normal limits. RETROPERITONEUM: There is no lymphadenopathy. BLADDER: Decompressed by Mcdaniel REPRODUCTIVE: Within normal limits. INGUINAL: There is no lymphadenopathy or hernia. MUSCULOSKELETAL: Degenerative changes in the lumbar spine and both SI joints. CONCLUSION: Nonspecific minimal bowel wall thickening transverse colon. There are no ancillary s igns of malignancy. Rahat Frey MD FACR on November 01, 2016 at 16:57 Board Certified Radiologist. This report was verified electronically.
[2016-11-01 18:08] LABS: BLOOD GAS BASE EXCESS 1.1 mmol/L (-2-2); BLOOD GAS CARBOXYHEMOGLOBIN 1.1 % (0-4); BLOOD GAS HCO3 25 mmol/L (22-26); BLOOD GAS METHEMOGLOBIN 1.3 % (0-2); BLOOD GAS O2 HGB SATURATION 95 % (90-100); BLOOD GAS OXYGEN CONTENT 16.8 Vol % (12.0-20.0); BLOOD GAS PCO2 37 mmHg (38-42); BLOOD GAS PO2 90 mmHg (61-120); BLOOD GAS TOTAL HGB 12.5 G/DL (12.0-16.0); CRITICAL VALUE NO; OXYGEN DEVICE VENTILATOR; TEMP CORR TO 98.6
[2016-11-01 18:09] LABS: DRAW SITE RT RADIAL; FIO2 40 %; NUMBER OF ARTERIAL PUNCTURES 1; STAT NO; ULNAR PULSE PRESENT; VENT SETTINGS AC/16/550/ITIME1/+5
--- NOTE | 2016-11-01 18:52 | HHI.NPPN ---
Subjective History of Present Illness 66-year-old male known to me from before with past medical history of hypertension, diabetes mellitus, hyperlipidemia, history of depression, history of rapidly progressive dementia and altered mental status, history of possible chronic kidney disease who was admitted to the medical floor from the Psych department because of worsening mental status. I was called to see the patient because of elevated BUN and creatinine. The patient had elevated creatinine when he was in the Psych department and I saw him there and at that time the impression was that the patient has prerenal azotemia, he was not eating very good and his creatinine improved after he was getting the hydration. His creatinine was 1.7 and it improved to 1.2 to 1.4. Additional Remarks Patient remain non verbal and unresponsive, clinically same and now getting EEG. Review of Systems General General Remarks Unresponsive and non verbal. Objective Data Data 11/01/16 11/02/16 18:59 06:59 Intake Total 1566 ml Balance 1566 ml IV Total 1566 ml Vital Signs Date Time Temp Pulse Resp B/P (MAP) Pulse Ox O2 Delivery O2 Flow Rate FiO2 11/01/16 17:31 98 40 11/01/16 16:00 98.7 81 22 99/61 (74) 100 11/01/16 16:00 40 11/01/16 16:00 92 11/01/16 15:40 100 100 11/01/16 14:11 100 16 154/88 11/01/16 14:00 108 11/01/16 12:15 95 40 11/01/16 12:15 40 11/01/16 12:00 101.4 92 23 129/83 (98) 96 11/01/16 12:00 92 11/01/16 10:00 89 11/01/16 08:58 96 Nasal Cannula 4.00 11/01/16 08:00 100.4 80 20 145/79 (101) 95 11/01/16 08:00 80 11/01/16 04:00 98.3 90 33 145/86 (105) 91 11/01/16 00:00 99.0 80 21 128/76 (93) 96 10/31/16 20:59 95 Nasal Cannula 4.00 10/31/16 20:00 98.8 80 26 134/76 (95) 95 -: 10/31/16 1508 11/01/16 1635 Physical Exam General Appearance Remarks Unresponsive and obtunded. Eyes Eye Exam: Pupils Equal Neck Neck Exam: Neck Supple Pulmonary Resp Exam: Breath Sounds Equal, No Distress, Rhonchi, Decreased Bases Cardiology CV Exam: Regular Gastrointestinal/Abdomen GI Exam: Soft, Non-Tender, Bowel Sounds Present, Non-Distended Extremeties Extremities Exam: Trace Edema Neurologic Neuro Exam: Obtunded, Unresponsive Assessment/Plan Assessment Summary: GEOVANY/Acute Renal Failure Problem List: (1) HTN (hypertension) ICD Codes: I10 - Essential (primary) hypertension (2) Diabetes ICD Codes: E11.9 - Type 2 diabetes mellitus without complications Status: Chronic (3) Seizure disorder ICD Codes: G40.909 - Epilepsy, unspecified, not intractable, without status epilepticus Status: Acute (4) Dyslipidemia ICD Codes: E78.5 - Hyperlipidemia, unspecified (5) Rapidly progressive dementia ICD Codes: F03.90 - Unspecified dementia without behavioral disturbance (6) GEOVANY (acute kidney injury) ICD Codes: N17.9 - Acute kidney failure, unspecified Status: Acute Plan Patient has improvement in the Creatinine. Urine Na. was not low. Most likely has pre renal or obs. uropathy. Now with Mcdaniel's catheter. Repeat MRI and EEG done. Neurology following. Na. increased, now on 1/2 NS. Also to start NGT feeding. D/W , follow BMP. Problem Qualifiers (1) HTN (hypertension): Qualified Codes: I10 - Essential (primary) hypertension (2) Diabetes: Madhuri Lott MD Nov 01, 2016 18:52
--- NOTE | 2016-11-01 19:23 | HHI.PR ---
Subjective Remarks 66 YOWM with AMS, sz, renal insuff Intubated for airway protection Sedated with Versed Son and at BS Objective Vital Signs Vital Signs Date Time Temp Pulse Resp B/P (MAP) Pulse Ox O2 Delivery O2 Flow Rate FiO2 11/01/16 17:31 98 40 11/01/16 16:00 98.7 81 22 99/61 (74) 100 11/01/16 16:00 40 11/01/16 16:00 92 11/01/16 15:40 100 100 11/01/16 14:11 100 16 154/88 11/01/16 14:00 108 11/01/16 12:15 95 40 11/01/16 12:15 40 11/01/16 12:00 101.4 92 23 129/83 (98) 96 11/01/16 12:00 92 11/01/16 10:00 89 11/01/16 08:58 96 Nasal Cannula 4.00 11/01/16 08:00 100.4 80 20 145/79 (101) 95 11/01/16 08:00 80 11/01/16 04:00 98.3 90 33 145/86 (105) 91 11/01/16 00:00 99.0 80 21 128/76 (93) 96 10/31/16 20:59 95 Nasal Cannula 4.00 10/31/16 20:00 98.8 80 26 134/76 (95) 95 I/O 10/31/16 10/31/16 10/31/16 11/01/16 11/01/16 11/01/16 07:00 15:00 23:00 07:00 15:00 23:00 Intake Total 1855 ml 310 ml 720 ml 0 ml 801 ml 765 ml Output Total 2450 ml 1650 ml 1500 ml Balance -595 ml 310 ml -930 ml -1500 ml 801 ml 765 ml Intake Oral 0 ml IV Total 1855 ml 310 ml 720 ml 801 ml 765 ml Output Urine Total 2350 ml 1400 ml 1300 ml Stool Total 100 ml 250 ml 200 ml Result Diagram: 10/31/16 1508 11/01/16 4965 Objective Remarks GENERAL: WBWN male, unresponsive SKIN: Warm and dry. HEAD: Normocephalic. EYES: No scleral icterus. No injection or drainage. NECK: Supple, trachea midline. No JVD or lymphadenopathy. CARDIOVASCULAR: Regular rate and rhythm without murmurs, gallops, or rubs. RESPIRATORY: Breath sounds equal bilaterally. No accessory muscle use. GASTROINTESTINAL: Abdomen soft, non-tender, nondistended. MUSCULOSKELETAL: No cyanosis, or edema. BACK: Nontender without obvious deformity. No CVA tenderness. A/P Assessment and Plan AMS SZ disorder Renal insuff ? Cerebritis RF, on vent PLAN Vent Support Cerebyx per Neuro IV Solumedrol Monitor renal functions Neuro following pt. DW and son at [facility] Malhotra MD Nov 01, 2016 19:23
[2016-11-01] MEDS: CHLORHEXIDINE 0.12% (ORAL KIT) 15 ML CUP MT SCH (20:00)
[2016-11-01] MEDS: DOCUSATE SODIUM 100 MG/10 ML UDC PO SCH (20:14)
[2016-11-02] VITALS (17 sets, daily range): BP systolic 90–135; BP diastolic 54–71; PULSE 68–93; RESP 16–31; TEMP 98.1–100; O2SAT 94–99
[2016-11-02] MEDS: METHYLPREDNISOLONE SO SUCC IV SCH ×5 (00:33→23:37)
[2016-11-02] MEDS: SODIUM CHLOR 0.45% 1000 ML INJ 1,000 ML IV SCH ×6 (00:33→23:05)
[2016-11-02] MEDS: SODIUM CHLORIDE 0.9% IV SCH ×5 (00:33→23:37)
[2016-11-02] MEDS: FOSPHENYTOIN SODIUM 100 MG PE/2 ML VIAL IV SCH ×4 (02:08→20:10)
[2016-11-02] MEDS: LACOSAMIDE INJ 100 MG in SODIUM CHLORIDE 0.9% INJ 100 ML IV SCH ×4 (02:08→20:09)
[2016-11-02] MEDS: RESP: ALBUTEROL 2.5 MG/IPRATROPIUM 0.5 MG NEB (SCH) NEB ×4 (03:17→19:56)
[2016-11-02] MEDS: FREE WATER OG-TUBE SCH ×5 (04:50→23:06)
[2016-11-02] MEDS: INSULIN ASPART SUPPLEMENTAL SCALE SQ SCH ×4 (06:30→20:12)
[2016-11-02] MEDS: SODIUM CHLORIDE 0.9% FLUSH 10 ML FLUSH IV FLUSH SCH ×2 (08:20→19:29)
--- NOTE | 2016-11-02 08:47 | HHI.PR ---
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 Plan check phenytoin level. continue versed and vimpat and cerebyx. 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 continue solumedrol and ivig. follow up anti-NMDA receptor ab. follow up hematology consult Diagnosis/Plan: Subjective Subjective Comments No acute events reported Active Medications Current Medications Medications (Trade) Dose Ordered Sig/Alyssa Route Start Time Stop Time Status Last Admin (NS Flush) 2 ml UNSCH PRN IV FLUSH 10/25/16 00:45 (NS Flush) 2 ml BID IV FLUSH 10/25/16 09:00 11/02/16 08:20 (Zofran Inj) 4 mg Q6H PRN IVP 10/25/16 00:45 (Narcan Inj) 0.4 mg UNSCH PRN IV 10/25/16 00:45 Methylprednisolone Sodium Succinate 250 mg/Sodium Chloride 50 ml @ 100 mls/hr Q6H IV 10/26/16 20:00 11/02/16 08:13 (Ativan Inj) 1 mg Q6H PRN IV 10/26/16 21:30 11/01/16 11:17 (Vasotec Inj) 1.25 mg Q6H PRN IV PUSH 10/26/16 21:30 10/27/16 13:35 Acyclovir Sodium 900 mg/Sodium Chloride 150 ml @ 150 mls/hr Q12H IV 10/27/16 22:00 11/01/16 20:15 (Catapres-Tts 0.1mg Patch.7d) 1 patch Q7D T-DERMAL 10/29/16 16:00 10/29/16 16:58 (D50w (Syr) Inj) 50 ml UNSCH PRN IV 10/29/16 15:45 (Glucagon Inj) 1 mg UNSCH PRN OTHER 10/29/16 15:30 (NovoLOG SUPPLEMENTAL SCALE) 1 ACHS SLIDING SCALE SQ 10/29/16 16:00 11/02/16 06:30 Miscellaneous Information 1 Q7D T-DERMAL 11/05/16 16:00 (Duoneb Neb) 1 ampule Q6HR NEB NEB 10/30/16 22:00 11/02/16 08:30 Lacosamide 100 mg/ Sodium Chloride 110 ml @ 110 mls/hr Q6H IV 11/01/16 15:00 11/02/16 02:08 (Cerebyx Inj) 100 mgpe Q6HR NEB IV 11/01/16 16:00 11/02/16 02:08 Immune Globulin 35 gm/Syringe / Bag 350 ml @ 26.04 mls/ hr Q24H IV 11/01/16 14:00 11/03/16 03:27 11/01/16 14:11 (Benadryl Inj) 50 mg UNSCH PRN IV PUSH 11/01/16 13:15 11/04/16 13:14 (Peridex 0.12% Liq) 15 ml BID@08,20 MT 11/01/16 20:00 11/01/16 20:00 Midazolam HCl 100 ml @ 2 mls/hr TITRATE PRN IV 11/01/16 12:30 11/01/16 12:34 Ceftriaxone Sodium 2000 mg/ Sodium Chloride 100 ml @ 200 mls/hr Q24H IV 11/01/16 16:00 11/01/16 16:54 (Duoneb Neb) 1 ampule Q6HR NEB PRN NEB 11/01/16 13:45 (Colace Liq) 100 mg Q12HR PO 11/01/16 21:00 11/01/16 20:14 (Protonix Inj) 40 mg Q24H IV PUSH 11/01/16 16:00 11/01/16 16:54 (Lovenox Inj) 40 mg Q24H SQ 11/02/16 09:00 Potassium Chloride 100 ml @ 50 mls/hr Q2H PRN IV 11/01/16 14:00 Potassium Chloride 100 ml @ 50 mls/hr Q2H PRN IV 11/01/16 14:00 (K-Lyte Cl Eff) 50 meq UNSCH PRN PO 11/01/16 14:00 Potassium Chloride 100 ml @ 25 mls/hr UNSCH PRN IV 11/01/16 14:00 Potassium Chloride 100 ml @ 50 mls/hr Q2H PRN IV 11/01/16 14:00 Magnesium Sulfate 4 gm/Sodium Chloride 100 ml @ 50 mls/hr UNSCH PRN IV 11/01/16 14:00 (Mag-Ox) 800 mg UNSCH PRN PO 11/01/16 14:00 Magnesium Sulfate 2 gm/Sodium Chloride 100 ml @ 50 mls/hr UNSCH PRN IV 11/01/16 14:00 (K-Phos) 2,000 mg Q4H PRN PO 11/01/16 14:00 Sodium Phosphate 30 mmol/Sodium Chloride 250 ml @ 42 mls/hr UNSCH PRN IV 11/01/16 14:00 (K-Phos) 2,000 mg UNSCH PRN PO/TUBE 11/01/16 14:00 Potassium Phosphate 30 mmol/ Sodium Chloride 260 ml @ 42 mls/hr UNSCH PRN IV 11/01/16 14:00 (Tylenol 160 Mg/ 5 ml Liq) 325 mg Q6H PRN NG 11/01/16 14:00 Sodium Chloride 1,000 ml @ 200 mls/hr Q5H IV 11/01/16 15:45 11/02/16 06:31 (Free Water) VOLUME OF WATER: ( 300 ) ML Q6HR OG-TUBE 11/01/16 18:00 11/02/16 04:50 Allergies Allergies Coded Allergies penicillin G (Unverified Allergy, Severe, 10/17/16) Review of Systems All other ROS: ROS reviewed as documented in chart Exam I&O / VS Vital Signs Date Time Temp Pulse Resp B/P (MAP) Pulse Ox O2 Delivery O2 Flow Rate FiO2 11/02/16 08:23 97 40 11/02/16 04:10 95 40 11/02/16 04:00 98.1 72 16 90/55 (67) 94 11/02/16 04:00 40 11/02/16 02:11 98 40 11/02/16 00:00 40 11/02/16 00:00 98.4 70 16 96/54 (68) 94 11/02/16 00:00 70 16 96/54 (68) 94 11/01/16 23:08 97 40 11/01/16 20:35 98 40 11/01/16 20:00 40 11/01/16 20:00 99.0 71 16 102/57 (72) 96 11/01/16 18:00 75 11/01/16 17:31 98 40 11/01/16 16:00 98.7 81 22 99/61 (74) 100 11/01/16 16:00 40 11/01/16 16:00 92 11/01/16 15:40 100 100 11/01/16 14:11 100 16 154/88 11/01/16 14:00 108 11/01/16 12:15 95 40 11/01/16 12:15 40 11/01/16 12:00 101.4 92 23 129/83 (98) 96 11/01/16 12:00 92 11/01/16 10:00 89 11/01/16 08:58 96 Nasal Cannula 4.00 Exam Comments Intubated and on versed--nonresponsive CN--PERRL, MOTOR--no focal deficit. has rhythmic motor activity mainly involving RUE and BLE and neck turning to left--subtle and occurs in a rhythmic fashion--appears like myoclonus Objective Micro and Labs Laboratory Tests Test 11/01/16 13:00 11/01/16 16:35 11/01/16 17:52 11/01/16 22:23 Blood Urea Nitrogen 42 Creatinine 1.20 Random Glucose 247 Calcium Level 8.2 Phosphorus Level 2.8 Sodium Level 159 158 157 Potassium Level 4.1 Chloride Level 125 Carbon Dioxide Level 27.4 Anion Gap 7 Estimat Glomerular Filtration Rate 60 Blood Smear Pathologist Review Erythrocyte Sedimentation Rate 15 Lactate Dehydrogenase 332 Blood Gas Puncture Site RT RADIAL Blood Gas Patient Temperature 98.6 Blood Gas HCO3 25 Blood Gas Base Excess 1.1 Blood Gas Oxygen Saturation 95 Arterial Blood pH 7.44 Arterial Blood Partial Pressure CO2 37 Arterial Blood Partial Pressure O2 90 Arterial Blood Oxygen Content 16.8 Arterial Blood Carboxyhemoglobin 1.1 Arterial Blood Methemoglobin 1.3 Blood Gas Hemoglobin 12.5 Oxygen Delivery Device VENTILATOR Blood Gas Ventilator Setting AC/16/550/ITIME1/+5 Blood Gas Inspired Oxygen 40 Test 11/02/16 03:26 Sodium Level 156 Date/Time Source Procedure Growth Status 10/26/16 13:00 Cerebral Spinal Fluid Lumbar Puncture Fungal Smear - Final NO FUNGAL ELEMENTS SEEN. Resulted 10/26/16 13:00 Cerebral Spinal Fluid Lumbar Puncture Fungal Culture Pending Resulted 10/30/16 12:25 Urine Clean Catch Urine Culture - Final Escherichia Coli Complete Diagnostic Tests Continuous EEG---mainly slowing in delta frequency with periodic low amplitude sharp activity, but significantly improved from EEG yesterday since starting versed. Miguelito Branham PhD Nov 02, 2016 08:47
[2016-11-02 09:23] LABS: AUTOMATED NEUTROPHIL # 10.8 TH/MM3 (1.8-7.7); HEMATOCRIT 37.8 % (39.0-51.0); LYMPH % 3.3 % (9.0-44.0); LYMPHOCYTE # 0.4 TH/MM3 (1.0-4.8); MEAN CELL VOLUME 91.8 FL (80.0-100.0); MEAN CORPUSCULAR HEMOGLOBIN 30.1 PG (27.0-34.0); MEAN CORPUSCULAR HGB CONC 32.8 % (32.0-36.0); NEUT % 93.7 % (16.0-70.0); PLATELET COUNT 69 TH/MM3 (150-450); RED BLOOD COUNT 4.11 MIL/MM3 (4.50-5.90); WHITE BLOOD COUNT 11.5 TH/MM3 (4.0-11.0)
[2016-11-02 09:27] LABS: HEMO FLAGS AUTO DIFF
[2016-11-02 09:52] LABS: ANION GAP 8 MEQ/L (5-15); BICARBONATE 24.1 MEQ/L (21.0-32.0); BLOOD UREA NITROGEN 42 MG/DL (7-18); CHLORIDE 122 MEQ/L (98-107); GLOMERULAR FILTRATION RATE 63 ML/MIN (>89); POTASSIUM 3.9 MEQ/L (3.5-5.1); SODIUM (NA) 154 MEQ/L (136-145)
[2016-11-02] MEDS: ACYCLOVIR INJ 900 MG in SODIUM CHLORIDE 0.9% INJ 150 ML IV SCH ×2 (09:54→20:09)
[2016-11-02] MEDS: ENOXAPARIN SODIUM 40 MG/0.4 ML SYRINGE SQ SCH (09:54)
[2016-11-02 09:55] LABS: ALT (GPT) 178 U/L (12-78); AST (GOT) 127 U/L (15-37)
[2016-11-02 09:56] LABS: PLATELET ESTIMATE SMEAR LOW (NORMAL)
[2016-11-02] MEDS: DOCUSATE SODIUM 100 MG/10 ML UDC PO SCH ×2 (09:56→20:08)
[2016-11-02 09:57] LABS: PLATELET MORPHOLOGY NORMAL (NORMAL); SCAN/DIFF AUTO DIFF CONFIRMED
[2016-11-02] MEDS: CHLORHEXIDINE 0.12% (ORAL KIT) 15 ML CUP MT SCH ×2 (09:57→20:00)
[2016-11-02 09:59] LABS: ALKALINE PHOSPHATASE 70 U/L (45-117); TOTAL BILIRUBIN ADULT 1.4 MG/DL (0.2-1.0)
[2016-11-02] MEDS: VALPROATE INJ 500 MG in SODIUM CHLORIDE 0.9% INJ 100 ML IV SCH ×2 (11:49→18:31)
--- NOTE | 2016-11-02 12:24 | HHI.NPPN ---
Subjective History of Present Illness 66-year-old male known to me from before with past medical history of hypertension, diabetes mellitus, hyperlipidemia, history of depression, history of rapidly progressive dementia and altered mental status, history of possible chronic kidney disease who was admitted to the medical floor from the Psych department because of worsening mental status. I was called to see the patient because of elevated BUN and creatinine. The patient had elevated creatinine when he was in the Psych department and I saw him there and at that time the impression was that the patient has prerenal azotemia, he was not eating very good and his creatinine improved after he was getting the hydration. His creatinine was 1.7 and it improved to 1.2 to 1.4. Additional Remarks Patient now intubated and sedated. Review of Systems General General Remarks intubated and sedated. Objective Data Data Vital Signs Date Time Temp Pulse Resp B/P (MAP) Pulse Ox O2 Delivery O2 Flow Rate FiO2 11/02/16 10:23 96 40 11/02/16 08:23 97 40 11/02/16 04:10 95 40 11/02/16 04:00 98.1 72 16 90/55 (67) 94 11/02/16 04:00 40 11/02/16 02:11 98 40 11/02/16 00:00 40 11/02/16 00:00 98.4 70 16 96/54 (68) 94 11/02/16 00:00 70 16 96/54 (68) 94 11/01/16 23:08 97 40 11/01/16 20:35 98 40 11/01/16 20:00 40 11/01/16 20:00 99.0 71 16 102/57 (72) 96 11/01/16 18:00 75 11/01/16 17:31 98 40 11/01/16 16:00 98.7 81 22 99/61 (74) 100 11/01/16 16:00 40 11/01/16 16:00 92 11/01/16 15:40 100 100 11/01/16 14:11 100 16 154/88 11/01/16 14:00 108 -: 11/02/16 0859 11/02/16 0859 Physical Exam General Appearance Remarks intubated and sedated. Eyes Eye Exam: Pupils Equal Neck Neck Exam: Neck Supple Pulmonary Resp Exam: Breath Sounds Equal, No Distress, Rhonchi, Decreased Bases Cardiology CV Exam: Regular Gastrointestinal/Abdomen GI Exam: Soft, Non-Tender, Bowel Sounds Present, Non-Distended Extremeties Extremities Exam: Trace Edema Neurologic Neuro Exam: Sedated Assessment/Plan Assessment Summary: GEOVANY/Acute Renal Failure Problem List: (1) HTN (hypertension) ICD Codes: I10 - Essential (primary) hypertension (2) Diabetes ICD Codes: E11.9 - Type 2 diabetes mellitus without complications Status: Chronic (3) Seizure disorder ICD Codes: G40.909 - Epilepsy, unspecified, not intractable, without status epilepticus Status: Acute (4) Dyslipidemia ICD Codes: E78.5 - Hyperlipidemia, unspecified (5) Rapidly progressive dementia ICD Codes: F03.90 - Unspecified dementia without behavioral disturbance (6) GEOVANY (acute kidney injury) ICD Codes: N17.9 - Acute kidney failure, unspecified Status: Acute Plan Patient has improvement in the Creatinine. Urine Na. was not low. Most likely has pre renal or obs. uropathy. Now with Mcdaniel's catheter. Repeat MRI and EEG done. Neurology following. Na. is improving. On 1/2 NS and also GT feeding. Creatinine is stable 1.1-1.2. Problem Qualifiers (1) HTN (hypertension): Qualified Codes: I10 - Essential (primary) hypertension (2) Diabetes: Madhuri Lott MD Nov 02, 2016 12:24
[2016-11-02 12:50] LABS: APTT (PATIENT) 29.6 SEC (24.3-30.1); INTERNATIONAL NORMALIZED RATIO 1.2 RATIO; PROTHROMBIN TIME - PATIENT 13.5 SEC (9.8-11.6)
--- NOTE | 2016-11-02 12:50 | HHI.IDPN ---
Note Infectious Disease Note Patient is unresponsive on the ventilator. Noted to have less seizure activity. Afebrile. Had episode of fever yesterday. LFT's elevated. Discussed with RN. Patient admitted to the hospital on October 07, 2016. The patient was felt to have psychosis. PAST MEDICAL HISTORY 1. Hypercholesteremia. 2. Dyslipidemia. 3. Umbilical hernia repair. ALLERGIES PENICILLIN. MEDICATIONS 1. Cerebyx. 2. Lacosamide. 3. Immune globulin. 4. Versed. 5. Methylprednisolone. 6. Acyclovir. SOCIAL HISTORY No tobacco use. Occasional alcohol use approximately twice a week. No illicit drugs. Patient is a who served in [employer]. OBJECTIVE: Vital Signs Date Time Temp Pulse Resp B/P (MAP) Pulse Ox O2 Delivery O2 Flow Rate FiO2 11/02/16 10:23 96 40 11/02/16 08:23 97 40 11/02/16 04:10 95 40 11/02/16 04:00 98.1 72 16 90/55 (67) 94 11/02/16 04:00 40 11/02/16 02:11 98 40 11/02/16 00:00 40 11/02/16 00:00 98.4 70 16 96/54 (68) 94 11/02/16 00:00 70 16 96/54 (68) 94 11/01/16 23:08 97 40 11/01/16 20:35 98 40 11/01/16 20:00 40 11/01/16 20:00 99.0 71 16 102/57 (72) 96 11/01/16 18:00 75 11/01/16 17:31 98 40 11/01/16 16:00 98.7 81 22 99/61 (74) 100 11/01/16 16:00 40 11/01/16 16:00 92 11/01/16 15:40 100 100 11/01/16 14:11 100 16 154/88 11/01/16 14:00 108 Laboratory Tests Test 10/31/16 15:08 11/01/16 16:35 11/02/16 08:59 11/02/16 12:06 White Blood Count 8.8 TH/MM3 11.5 TH/MM3 Red Blood Count 4.23 MIL/MM3 4.11 MIL/MM3 Hemoglobin 12.5 GM/DL 12.4 GM/DL Hematocrit 38.2 % 37.8 % Mean Corpuscular Volume 90.4 FL 91.8 FL Mean Corpuscular Hemoglobin 29.6 PG 30.1 PG Mean Corpuscular Hemoglobin Concent 32.8 % 32.8 % Red Cell Distribution Width 13.1 % 13.0 % Platelet Count 106 TH/MM3 69 TH/MM3 Mean Platelet Volume 8.1 FL 8.5 FL Neutrophils (%) (Auto) 93.0 % 93.7 % Lymphocytes (%) (Auto) 3.0 % 3.3 % Monocytes (%) (Auto) 4.0 % 3.0 % Eosinophils (%) (Auto) 0.0 % 0.0 % Basophils (%) (Auto) 0.0 % 0.0 % Neutrophils # (Auto) 8.2 TH/MM3 10.8 TH/MM3 Lymphocytes # (Auto) 0.3 TH/MM3 0.4 TH/MM3 Monocytes # (Auto) 0.3 TH/MM3 0.3 TH/MM3 Eosinophils # (Auto) 0.0 TH/MM3 0.0 TH/MM3 Basophils # (Auto) 0.0 TH/MM3 0.0 TH/MM3 CBC Comment DIFF FINAL AUTO DIFF Differential Comment AUTO DIFF CONFIRMED Blood Smear Pathologist Review Erythrocyte Sedimentation Rate 15 mm/hr Platelet Estimate LOW Platelet Morphology Comment NORMAL Laboratory Tests Test 10/31/16 15:08 10/31/16 20:19 11/01/16 06:58 11/01/16 13:00 Blood Urea Nitrogen 47 MG/DL 45 MG/DL 42 MG/DL Creatinine 1.34 MG/DL 1.26 MG/DL 1.20 MG/DL Random Glucose 246 MG/DL 271 MG/DL 247 MG/DL Calcium Level 8.0 MG/DL 8.1 MG/DL 8.2 MG/DL Sodium Level 156 MEQ/L 159 MEQ/L 159 MEQ/L Potassium Level 4.2 MEQ/L 4.2 MEQ/L 4.1 MEQ/L Chloride Level 124 MEQ/L 124 MEQ/L 125 MEQ/L Carbon Dioxide Level 28.1 MEQ/L 26.2 MEQ/L 27.4 MEQ/L Anion Gap 4 MEQ/L 9 MEQ/L 7 MEQ/L Estimat Glomerular Filtration Rate 53 ML/MIN 57 ML/MIN 60 ML/MIN Ammonia 27 MCMOL/L Phosphorus Level 2.8 MG/DL Test 11/01/16 16:35 11/01/16 22:23 11/02/16 03:26 11/02/16 08:59 Sodium Level 158 MEQ/L 157 MEQ/L 156 MEQ/L 154 MEQ/L Lactate Dehydrogenase 332 U/L Blood Urea Nitrogen 42 MG/DL Creatinine 1.16 MG/DL Random Glucose 286 MG/DL Total Protein 5.7 GM/DL Albumin 1.8 GM/DL Calcium Level 7.6 MG/DL Alkaline Phosphatase 70 U/L Aspartate Amino Transf (AST/SGOT) 127 U/L Alanine Aminotransferase (ALT/SGPT) 178 U/L Total Bilirubin 1.4 MG/DL Potassium Level 3.9 MEQ/L Chloride Level 122 MEQ/L Carbon Dioxide Level 24.1 MEQ/L Anion Gap 8 MEQ/L Estimat Glomerular Filtration Rate 63 ML/MIN Test 11/02/16 12:06 IMAGING: Chest X-Ray 11/01/16 0000 Signed Impressions: Service Date/Time: Tuesday, November 01, 2016 13:10 - CONCLUSION: ET and nasogastric in good position. Lungs are clear. Rahat Frey MD FACR Chest CT 11/01/16 0000 Signed Impressions: Service Date/Time: Tuesday, November 01, 2016 15:59 - CONCLUSION: Minimal nonspecific adenopathy the bibasilar parenchymal changes worse on the left. Rahat Frey MD FACR Abdomen/Pelvis CT 11/01/16 0000 Signed Impressions: Service Date/Time: Tuesday, November 01, 2016 16:04 - CONCLUSION: Nonspecific minimal bowel wall thickening transverse colon. There are no ancillary signs of malignancy. Rahat Frey MD FACR Brain MRI 10/31/16 0000 Signed Impressions: Service Date/Time: Monday, October 31, 2016 10:51 - CONCLUSION: 1. Subtle signal abdomen only at the pinto-white junction in the right hemisphere as above. The findings may reflect encephalitis or cerebritis Kranthi Lloyd MD Lumbar Puncture Fluoroscopy 10/26/16 0000 Signed Impressions: Service Date/Time: October 12:24 - CONCLUSION: Uncomplicated fluoroscopically guided cervical puncture. Kranthi Lloyd MD PHYSICAL EXAMINATION GENERAL: On the ventilator. Has some twitching at the RUE. HEENT: The sclerae is not icteric. Oropharynx intubated. NECK: Supple without swelling. No adenopathy. LUNGS: Clear breath sounds. HEART: Regular, S1 and S2 without murmurs or rubs or gallops. ABDOMEN: Bowel sounds present, soft, nontender. EXTREMITIES: No clubbing or cyanosis or edema. SKIN: No rash. NEURO: Unable to assess. PSYCHE: Unable to assess. IMPRESSION 1. Possible encephalitis. 2. Acute respiratory failure. 3. Seizures. 4. Increased LFT's ? meds. 5. Thrombocytopenia ? etiology. The patient presented with dizziness and now has seizure activity and lumbar puncture showing some white cells with predominance of neutrophils, elevated glucose. MRI suggesting encephalitis/cerebritis. The patient's noted that he was very healthy before presenting and that he was able to do usual activities including riding his motorcycle and he did some gardening work around the house but never complained of any significant issues and never had any headache. Based on the CSF studies does not suggest bacterial meningitis and the CSF cultures have no growth. The etiology of encephalitis in this patient is unclear and other causes of the MRI findings should be addressed as it is being done currently. He likely could have an autoimmune cause of the cerebritis. RECOMMENDATIONS 1. Monitor serum Lyme antibody titer. 2. Stop ceftriaxone. ? contributing to elevated LFT. Also could be from cerebyx 3. Monitor temps. 4. May stop Acyclovir if okay with Dr. Branham. I will be off 11/03 - 11/19. other ID MD covering. Patient's updated. Also updated son James by phone conversation. Geoff Reeves MD Nov 02, 2016 12:50
[2016-11-02 13:04] LABS: BICARBONATE 25.8 MEQ/L (21.0-32.0); INDIRECT BILIRUBIN 0.4 MG/DL (0.0-0.8); TOTAL BILIRUBIN ADULT 1.3 MG/DL (0.2-1.0)
[2016-11-02 13:16] LABS: CALCIUM-PROTEIN CORRECTED 8.3 MG/DL (8.5-10.1)
[2016-11-02] MEDS: IMMUNE GLOBULIN INJ 35 GM in SYRINGE/BAG 1 EA IV SCH (13:45)
--- NOTE | 2016-11-02 15:27 | HHI.CCPN ---
Subjective Remarks/Hospital Course Hospital Course: This is a 66-year-old man with history of diabetes, hypertension, dyslipidemia who about a month ago started having difficulty with balance with shuffling type of gait and resting tremor along with recent cognitive decline as well. His initial admission was on 10/06/16, as initial workup was negative patient was admitted to psych unit on 10/06/16 for suicidal ideations and altered mental status. He was evaluated by neurology Dr Branham, possibility of Parkinsonian symptoms and vitamin B 12 deficiency was entertained, but there was no improvement with treatment. He was re admitted to hospitalist service with worsening mental status on 10/25/16. Per Dr. Branham, MRI showed possible cerebritis. Differential included Creutzfeldt-Ministerio. But 14-3-3 protein for Creutzfeldt-Ministerio was negative. Currently on acyclovir for possibility of viral cerebritis. EEG done 10/24/16 showed generalized epileptiform activity. Patient was placed on Cerebyx, Keppra. Keppra was DCd due to rash and currently patient is on Cerebyx and Vimpat. Repeat EEGs from 10/31/16 and today shows continued seizure activity/subclinical seizures. Patient continues to be encephalopathic not responding. EEG today shows continued seizure activity indicating status epilepticus. Critical-care medicine was consulted by Dr. Branham today for continuous Versed infusion after intubation I evaluated the patient in ICU. He barely opens his eyes to painful stimuli localizes with right upper extremity withdrawal of any other extremities. Discussed with Dr. Branham multiple times. In his opinion, this appears to be a autoimmune encephalitis less likely to be infectious. Anti-NMDA receptor antibody ordered. Per Dr. Branham D/D possibly paraneoplastic, vasculitic or NMDA- receptor encephalitis. Currently patient is on IV Solu-Medrol and IVIG had been ordered by Dr. Branham. Initiate continuous EEG monitoring. TTP/HUS unlikely, but patient has E Coli UTI, I have asked for peripheral smear review by pathologist Subjective: 11/02: remains encephalopathic, but also very deeply sedated on versed drip. continuous EEG with intermittent sharp spikes that correspond with rhythmic neck movement. neurology adding additional anti-epileptics. peripheral smear without Schistocytes. currently receiving IVIG for possible auto-immune encephalopathy. Objective Vital Signs Date Time Temp Pulse Resp B/P (MAP) Pulse Ox O2 Delivery O2 Flow Rate FiO2 8/31/17 13:58 96 40 11/02/16 13:45 81 19 131/71 11/02/16 04:00 98.1 11/01/16 08:58 Nasal Cannula 4.00 Intake and Output 11/02/16 11/02/16 11/02/16 07:59 15:59 23:59 Intake Total 1155 ml Output Total 1400 ml Balance -245 ml Result Diagram: 11/02/16 0859 11/02/16 1206 Other Results Laboratory Tests Test 11/01/16 17:52 Blood Gas Puncture Site RT RADIAL Blood Gas Patient Temperature 98.6 Blood Gas HCO3 25 mmol/L (22-26) Blood Gas Base Excess 1.1 mmol/L (-2-2) Blood Gas Oxygen Saturation 95 % (90-100) Arterial Blood pH 7.44 (7.380-7.420) Arterial Blood Partial Pressure CO2 37 mmHg (38-42) Arterial Blood Partial Pressure O2 90 mmHg (61-120) Arterial Blood Oxygen Content 16.8 Vol % (12.0-20.0) Arterial Blood Carboxyhemoglobin 1.1 % (0-4) Arterial Blood Methemoglobin 1.3 % (0-2) Blood Gas Hemoglobin 12.5 G/DL (12.0-16.0) Oxygen Delivery Device VENTILATOR Blood Gas Ventilator Setting AC/16/550/ITIME1/+5 Blood Gas Inspired Oxygen 40 % Imaging Reviewed Objective Remarks GENERAL: middle-aged male, lying in bed, intubated, unresponsive and severely encephalopathic SKIN: Warm and dry. No lesions noted. HEENT: Normocephalic. Pupils equal 2 mm nonreactive. Disconjugate gaze CARDIOVASCULAR: Regular rate and rhythm. No murmur appreciated. RESPIRATORY: No accessory muscle use. Clear to auscultation. Breath sounds equal bilaterally. GASTROINTESTINAL: Abdomen soft, non-tender, nondistended. MUSCULOSKELETAL: No obvious deformities. No clubbing or cyanosis. No edema. NEUROLOGICAL: Deeply sedated on versed infusion. Patient is unresponsive. Pupils 2 mm millimeter unreactive with disconjugate gaze. To noxious stimuli there is partial eye opening, localizes with right upper extremity slight withdrawal of the right lower extremity. No movement on the left upper and lower extremity Procedures 10/26/16 C1-C2 puncture for CSF A/P Assessment and Plan Assessment: 66yM with severe encephalopathy of unknown etiology, possibly autoimmune. Remains very critically ill. despite versed infusion still with evidence of epileptiform discharges on EEG. Needs to remain deeply sedated with ongoing continuous EEG. will keep intubated without sedation vacation until seizures improve. 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 Monitor levels - Workup negative for infectious encephalitis including CJD - Ongoing workup for autoimmune encephalitis, anti-NMDA receptor antibody pending - CT of the chest abdomen pelvis to rule out malignancy - Continue acyclovir, ID consulted - Continue IV Solu-Medrol and IVIG per Dr. Branham - TTP/HUS unlikely given lack of schistocytes on peripheral smear 11/01 - IVIG today. RESP: Acute hypoxic and hypercarbic respiratory failure - Intubated for failure to protect airway from status epilepticus - ACV 16/550/5 50%, and dilated bundle - DuoNeb every 6 hours and when necessary - no SBT today given ongoing active epileptic foci. unsafe to wean from mechanical ventilation. CV: - Normal saline IV fluids 75 ml per hour, not on any pressors at this time GI: - Replace NG tube and start tube feedings. IV Protonix for GI prophylaxis : Acute kidney injury - Creatinine steadily improving. Monitor renal function closely. Mcdaniel catheter. - Continue with careful hydration ID: Encephalitis is probably noninfectious E Coli UTI - Continue empiric acyclovir - Rocephin for Escherichia coli UTI - TTP/HUS unlikely given negative peripheral smear for schistocytes HEME: - Monitor CBC, CMP, coags - Thrombocytopenia has resolved ENDO: Type 2 diabetes - Electrolyte replacement per protocol - Sliding-scale insulin PROPH: - Bilateral lower extremity SCDs. Lovenox 40 mg subcutaneous daily starting . IV Protonix LINES: - Utilize peripheral IVs, central line if needed CC time 32 min excluding procedures Patient remains very critically ill with ongoing status epilepticus despite versed infusion. Too unsafe to lighten sedation, so must remain intubated and deeply sedated. Luis Fernando Sadler MD Nov 02, 2016 15:26
--- NOTE | 2016-11-02 16:16 | MB ---
cc: SCOTT BHARDWAJ RUBY ANNE E. M.D. DATE OF CONSULTATION: 11/02/[address] Bhardwaj. CHIEF COMPLAINT Dr. Bhardwaj requested consultation for Mr. Luong with thrombocytopenia, renal insufficiency suspicious for TTP/HUS. HISTORY OF PRESENT ILLNESS Mr. Luong is a 66-year-old man admitted on 10/24. He presented with dizziness. He was admitted to the psychiatric unit for suicidal ideation and altered mental status. He was evaluated by neurology and Parkinson's and B12 deficiency is considered in the differential. His complements the history is suggesting that the mental status change has been acute in nature. He was subsequently transferred back to the medical floor. He has a history of dyslipidemia, dysphasia, hypertension, diabetes. He was on low-molecular weight heparin for DVT prophylaxis. He had rapid onset of acute mental status change for which neurology has been evaluating. Imaging study, MRI of the brain shows no acute findings identified. VQ scan shows low probability for pulmonary embolism. Repeat brain MRI scan shows no acute intracranial process to produce the symptoms. On admission he was mildly thrombocytopenic with platelet count normally at 172,000 back in September. His platelet count started to trend down and is down to 69,000 at the time of the consultation. He was not anemic on admission by his hemoglobin trended down to 12.4. His white blood cell count is increased. His sed rate is normal. He had acute renal failure on admission with a creatinine of 2.78 and gradually improve. His renal function is actually improving at the time of the consultation. His bilirubin on admission was normal, increased to 1.2. Liver functions were elevated, LDH was 332. No history was obtained from the patient as he is intubated and sedated, requiring support. Neurology treatment included Solu-Medrol and IVIG. They are following up anti NMDA receptor. He is on phenytoin. He is thought to have autoimmune encephalitis with secondary seizures. He is on continuous EEG. Hematology/Oncology is consulted for the possibility of TTP. PAST MEDICAL HISTORY 1. Hypertension. 2. Diabetes. 3. Dyslipidemia. 4. Depression. 5. 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 6. Acute renal insufficiency. FAMILY HISTORY Significant for depression and cancer. SOCIAL HISTORY He is and has a . He quit smoking 6-7 years ago. He drinks one drink every [id number] days. Denies any illicit drug use. PHYSICAL EXAMINATION VITAL SIGNS: Temperature 98.1, heart rate 16, blood pressure 90/55, saturation 94%, FIO2 40s, sedated, intubated, mechanical ventilatory support. HEENT: His pupils are round, reactive. Oropharynx is dry. NECK: Neck is supple. LUNGS: Clear anteriorly with good air entry. CARDIOVASCULAR: Exam reveals a normal rate, rhythm. ABDOMEN: Benign. EXTREMITIES: Lower extremity with boot in place. Good pulses. There is no swelling. LABORATORY DATA As described above, bilirubin 1.4, AST 127, ALT 111, alkaline phosphatase 70, LDH is 322. PT and PTT are requested. Fibrinogen is pending. LABORATORY DATA Significant for mild anemia, hemoglobin 12.4, platelet count of 69,000. GAT is pending. ASSESSMENT/PLAN Mr. Luong is a 66-year-old man with multiple medical problems described above. He has acute presentation of mental status change. A differential include autoimmune encephalitis, possible anti NMDA receptor encephalitis and TTP. Hematology/Oncology is consulted for the TTP. Reviewed the evaluation of his labs. He has worsening thrombocytopenia. He also is on low-molecular weight heparin, I am unable to exclude other drug effect. He has no significant hemolysis as his hemoglobin was 13.4 on 10/30, has decreased to 12.4. LDH is only in the upper limits of normal at 332. It is unimpressive for hemolysis. Furthermore, his renal function is improving which argues against a hemolytic process. I will check a haptoglobin, review peripheral smear with pathology. Direct antibody test will be performed. In the differential include DIC. Coags with fibrinogen will be obtained today and repeated tomorrow. We will check heparin-induced thrombocytopenia antibody test. The low-molecular weight heparin will be held, clinically there is no signs of deep vein thromboses. It is difficult to explain his acute mental status change to TTP, his laboratory evaluation did not support that diagnosis. If he has no significant improvement, we can consider empiric trial of pheresis but this will be discussed in conjunction with his treating physicians with Dr. Bhardwaj and Dr. Miguelito Branham. LDH will be repeated. Deya Li MD RAD/TLL /12:06 PM /3:42 PM
[2016-11-02] MEDS: PANTOPRAZOLE SODIUM 40 MG VIAL IV PUSH SCH (16:44)
[2016-11-02] MEDS: MIDAZOLAM 100 MG/NS 100 ML DRIP Premix IV PRN (18:18)
--- NOTE | 2016-11-02 18:45 | HHI.PR ---
Subjective Remarks 66 YOWM with AMS, sz, renal insuff Intubated for airway protection Sedated with Versed at BS Started IVIG Objective Vital Signs Vital Signs Date Time Temp Pulse Resp B/P (MAP) Pulse Ox O2 Delivery O2 Flow Rate FiO2 11/02/16 18:00 68 11/02/16 16:00 68 11/02/16 15:42 96 40 11/02/16 14:00 68 11/02/16 13:58 96 40 11/02/16 13:45 81 19 131/71 11/02/16 12:00 68 11/02/16 10:23 96 40 11/02/16 10:00 68 11/02/16 08:23 97 40 11/02/16 08:00 68 11/02/16 08:00 100.0 75 16 117/59 (78) 97 11/02/16 08:00 40 11/02/16 04:10 95 40 11/02/16 04:00 98.1 72 16 90/55 (67) 94 11/02/16 04:00 40 11/02/16 02:11 98 40 11/02/16 00:00 40 11/02/16 00:00 98.4 70 16 96/54 (68) 94 11/02/16 00:00 70 16 96/54 (68) 94 11/01/16 23:08 97 40 11/01/16 20:35 98 40 11/01/16 20:00 40 11/01/16 20:00 99.0 71 16 102/57 (72) 96 I/O 11/01/16 11/01/16 11/01/16 11/02/16 11/02/16 11/02/16 07:00 15:00 23:00 07:00 15:00 23:00 Intake Total 0 ml 801 ml 765 ml 1155 ml Output Total 1500 ml 1200 ml 1400 ml Balance -1500 ml 801 ml -435 ml -245 ml Intake Oral 0 ml 0 ml IV Total 801 ml 765 ml Tube Feeding 555 ml Other 600 ml Output Urine Total 1300 ml 1200 ml 1125 ml Stool Total 200 ml 275 ml Result Diagram: 11/02/16 0859 11/02/16 1206 Objective Remarks GENERAL: WBWN male, unresponsive SKIN: Warm and dry. HEAD: Normocephalic. EYES: No scleral icterus. No injection or drainage. NECK: Supple, trachea midline. No JVD or lymphadenopathy. CARDIOVASCULAR: Regular rate and rhythm without murmurs, gallops, or rubs. RESPIRATORY: Breath sounds equal bilaterally. No accessory muscle use. GASTROINTESTINAL: Abdomen soft, non-tender, nondistended. MUSCULOSKELETAL: No cyanosis, or edema. BACK: Nontender without obvious deformity. No CVA tenderness. A/P Assessment and Plan AMS SZ disorder Renal insuff ? Cerebritis RF, on vent PLAN Vent Support Cerebyx per Neuro IV Solumedrol Monitor renal functions Neuro following pt. DW at [facility],Stanley Ramon MD Nov 02, 2016 18:45
--- NOTE | 2016-11-02 19:15 | HHI.PR ---
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 Differential includes possible anti-NMDA receptor encephalitis (antibody lab pending), paraneoplastic encephalitis Plan check phenytoin level. continue versed and vimpat and cerebyx. 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 continue solumedrol and ivig. follow up anti-NMDA receptor ab. check complete paraneoplastic antibody panel I spoke with neurologist at [facility] regarding transfer for second opinion. I spoke with his --she states she is not sure she wants him transferred --will discuss with his sons Diagnosis/Plan: Subjective Subjective Comments No acute events reported No clinical SZ Active Medications Current Medications Medications (Trade) Dose Ordered Sig/Alyssa Route Start Time Stop Time Status Last Admin (NS Flush) 2 ml UNSCH PRN IV FLUSH 10/25/16 00:45 (NS Flush) 2 ml BID IV FLUSH 10/25/16 09:00 11/02/16 08:20 (Zofran Inj) 4 mg Q6H PRN IVP 10/25/16 00:45 (Narcan Inj) 0.4 mg UNSCH PRN IV 10/25/16 00:45 Methylprednisolone Sodium Succinate 250 mg/Sodium Chloride 50 ml @ 100 mls/hr Q6H IV 10/26/16 20:00 11/02/16 13:51 (Ativan Inj) 1 mg Q6H PRN IV 10/26/16 21:30 11/01/16 11:17 (Vasotec Inj) 1.25 mg Q6H PRN IV PUSH 10/26/16 21:30 10/27/16 13:35 Acyclovir Sodium 900 mg/Sodium Chloride 150 ml @ 150 mls/hr Q12H IV 10/27/16 22:00 11/02/16 09:54 (Catapres-Tts 0.1mg Patch.7d) 1 patch Q7D T-DERMAL 10/29/16 16:00 10/29/16 16:58 (D50w (Syr) Inj) 50 ml UNSCH PRN IV 10/29/16 15:45 (Glucagon Inj) 1 mg UNSCH PRN OTHER 10/29/16 15:30 (NovoLOG SUPPLEMENTAL SCALE) 1 ACHS SLIDING SCALE SQ 10/29/16 16:00 11/02/16 16:00 Miscellaneous Information 1 Q7D T-DERMAL 11/05/16 16:00 (Duoneb Neb) 1 ampule Q6HR NEB NEB 10/30/16 22:00 11/02/16 15:41 Lacosamide 100 mg/ Sodium Chloride 110 ml @ 110 mls/hr Q6H IV 11/01/16 15:00 11/02/16 14:33 (Cerebyx Inj) 100 mgpe Q6HR NEB IV 11/01/16 16:00 11/02/16 16:00 Immune Globulin 35 gm/Syringe / Bag 350 ml @ 26.04 mls/ hr Q24H IV 11/01/16 14:00 11/03/16 03:27 11/02/16 13:45 (Benadryl Inj) 50 mg UNSCH PRN IV PUSH 11/01/16 13:15 11/04/16 13:14 (Peridex 0.12% Liq) 15 ml BID@08,20 MT 11/01/16 20:00 11/02/16 09:57 Midazolam HCl 100 ml @ 2 mls/hr TITRATE PRN IV 11/01/16 12:30 11/02/16 18:18 (Duoneb Neb) 1 ampule Q6HR NEB PRN NEB 11/01/16 13:45 (Colace Liq) 100 mg Q12HR PO 11/01/16 21:00 11/02/16 09:56 (Protonix Inj) 40 mg Q24H IV PUSH 11/01/16 16:00 11/02/16 16:44 (Lovenox Inj) 40 mg Q24H SQ 11/02/16 09:00 11/02/16 09:54 Potassium Chloride 100 ml @ 50 mls/hr Q2H PRN IV 11/01/16 14:00 Potassium Chloride 100 ml @ 50 mls/hr Q2H PRN IV 11/01/16 14:00 (K-Lyte Cl Eff) 50 meq UNSCH PRN PO 11/01/16 14:00 Potassium Chloride 100 ml @ 25 mls/hr UNSCH PRN IV 11/01/16 14:00 Potassium Chloride 100 ml @ 50 mls/hr Q2H PRN IV 11/01/16 14:00 Magnesium Sulfate 4 gm/Sodium Chloride 100 ml @ 50 mls/hr UNSCH PRN IV 11/01/16 14:00 (Mag-Ox) 800 mg UNSCH PRN PO 11/01/16 14:00 Magnesium Sulfate 2 gm/Sodium Chloride 100 ml @ 50 mls/hr UNSCH PRN IV 11/01/16 14:00 (K-Phos) 2,000 mg Q4H PRN PO 11/01/16 14:00 Sodium Phosphate 30 mmol/Sodium Chloride 250 ml @ 42 mls/hr UNSCH PRN IV 11/01/16 14:00 (K-Phos) 2,000 mg UNSCH PRN PO/TUBE 11/01/16 14:00 Potassium Phosphate 30 mmol/ Sodium Chloride 260 ml @ 42 mls/hr UNSCH PRN IV 11/01/16 14:00 (Tylenol 160 Mg/ 5 ml Liq) 325 mg Q6H PRN NG 11/01/16 14:00 Sodium Chloride 1,000 ml @ 200 mls/hr Q5H IV 11/01/16 15:45 11/02/16 18:19 (Free Water) VOLUME OF WATER: ( 300 ) ML Q6HR OG-TUBE 11/01/16 18:00 11/02/16 18:00 Valproate Sodium 500 mg/Sodium Chloride 105 ml @ 105 mls/hr Q8H IV 11/02/16 11:00 11/02/16 18:31 Allergies Allergies Coded Allergies penicillin G (Unverified Allergy, Severe, 10/17/16) Review of Systems All other ROS: ROS reviewed as documented in chart Exam I&O / VS 11/02/16 11/02/16 11/03/16 15:00 23:00 07:00 Intake Total 3781 ml Output Total 1675 ml Balance 2106 ml IV Total 2463 ml Tube Feeding 670 ml Tube Irrigant 648 ml Output Urine Total 1375 ml Stool Total 300 ml Vital Signs Date Time Temp Pulse Resp B/P (MAP) Pulse Ox O2 Delivery O2 Flow Rate FiO2 11/02/16 18:00 68 11/02/16 18:00 92 31 135/71 (92) 97 11/02/16 16:00 40 11/02/16 16:00 68 11/02/16 16:00 98.8 88 21 128/71 (90) 97 11/02/16 15:42 96 40 11/02/16 14:00 68 11/02/16 13:58 96 40 11/02/16 13:45 81 19 131/71 11/02/16 12:00 68 11/02/16 12:00 98.3 75 16 96/57 (70) 95 11/02/16 12:00 40 11/02/16 10:23 96 40 11/02/16 10:00 68 11/02/16 08:23 97 40 11/02/16 08:00 68 11/02/16 08:00 100.0 75 16 117/59 (78) 97 11/02/16 08:00 40 11/02/16 04:10 95 40 11/02/16 04:00 98.1 72 16 90/55 (67) 94 11/02/16 04:00 40 11/02/16 02:11 98 40 11/02/16 00:00 40 11/02/16 00:00 98.4 70 16 96/54 (68) 94 11/02/16 00:00 70 16 96/54 (68) 94 11/01/16 23:08 97 40 11/01/16 20:35 98 40 11/01/16 20:00 40 11/01/16 20:00 99.0 71 16 102/57 (72) 96 Exam Comments Intubated and on versed--nonresponsive CN--PERRL, MOTOR--no focal deficit. has rhythmic motor activity mainly involving RUE and BLE and neck turning to left--subtle and occurs in a rhythmic fashion--appears like myoclonus Objective Radiology Results CT abdomen/pelvis, CT chest---no evidence of malignancy Micro and Labs Laboratory Tests Test 11/01/16 22:23 11/02/16 03:26 11/02/16 08:59 11/02/16 12:06 Sodium Level 157 156 154 154 White Blood Count 11.5 Red Blood Count 4.11 Hemoglobin 12.4 Hematocrit 37.8 Mean Corpuscular Volume 91.8 Mean Corpuscular Hemoglobin 30.1 Mean Corpuscular Hemoglobin Concent 32.8 Red Cell Distribution Width 13.0 Platelet Count 69 Mean Platelet Volume 8.5 Neutrophils (%) (Auto) 93.7 Lymphocytes (%) (Auto) 3.3 Monocytes (%) (Auto) 3.0 Eosinophils (%) (Auto) 0.0 Basophils (%) (Auto) 0.0 Neutrophils # (Auto) 10.8 Lymphocytes # (Auto) 0.4 Monocytes # (Auto) 0.3 Eosinophils # (Auto) 0.0 Basophils # (Auto) 0.0 CBC Comment AUTO DIFF Differential Comment AUTO DIFF CONFIRMED Platelet Estimate LOW Platelet Morphology Comment NORMAL Blood Urea Nitrogen 42 44 Creatinine 1.16 1.18 Random Glucose 286 307 Total Protein 5.7 5.4 Albumin 1.8 Calcium Level 7.6 7.4 Alkaline Phosphatase 70 Aspartate Amino Transf (AST/SGOT) 127 Alanine Aminotransferase (ALT/SGPT) 178 Total Bilirubin 1.4 1.3 Potassium Level 3.9 4.0 Chloride Level 122 122 Carbon Dioxide Level 24.1 25.8 Anion Gap 8 6 Estimat Glomerular Filtration Rate 63 61 Haptoglobin 215 Prothrombin Time 13.5 Prothromb Time International Ratio 1.2 Activated Partial Thromboplast Time 29.6 Fibrinogen 185 Lactate Dehydrogenase 432 Direct Bilirubin 0.9 Protein Corrected Calcium 8.3 Indirect Bilirubin 0.4 Phenytoin (Dilantin) Level 11.9 Date/Time Source Procedure Growth Status 10/26/16 13:00 Cerebral Spinal Fluid Lumbar Puncture Fungal Smear - Final NO FUNGAL ELEMENTS SEEN. Resulted 10/26/16 13:00 Cerebral Spinal Fluid Lumbar Puncture Fungal Culture - Preliminary NO GROWTH IN 1 WEEK Resulted 10/30/16 12:25 Urine Clean Catch Urine Culture - Final Escherichia Coli Complete Diagnostic Tests Continuous EEG--generalized delta activity with no epileptiform discharges. Miguelito Branham PhD Nov 02, 2016 19:15
--- NOTE | 2016-11-02 23:58 | MG ---
cc: VIOLETTA DWYER M.D. Lab No: [id number] Date: 11/02/16 Age: 66 Sex: M Race: AGE [id number]. DATE OF [address] Branham ROOM 526 With photic stimulation on 10 micrograms of Versed, intubated. History of head injury in 1972, migraines. MEDICATIONS 1. Lacosamide. 2. Cerebyx. 3. Versed. 4. Protonix. DESCRIPTION OF RECORD The patient has an attenuated background predominately of what looks like a delta wave frequency, 1 to 2 hertz. Some artifact but no appreciable spike. Some movement in the hand and the mouth but here is no correlation with any epileptiform discharges. The patient at times looks like he is in the burst suppress pattern. Photic stimulation there is no driving response. IMPRESSION Abnormal EEG due to ___ background, may be due to medicine effect but there are no epileptiform features in this recording. Clinical correlation. Violetta Dwyer MD DF/NIKKI /8:10 PM /11:46 PM
[2016-11-03] VITALS (41 sets, daily range): BP systolic 112–147; BP diastolic 63–84; PULSE 79–101; RESP 16–30; TEMP 98.7–100.6; O2SAT 93–98
[2016-11-03] MEDS: LACOSAMIDE INJ 100 MG in SODIUM CHLORIDE 0.9% INJ 100 ML IV SCH ×4 (00:43→20:35)
[2016-11-03] MEDS: VALPROATE INJ 500 MG in SODIUM CHLORIDE 0.9% INJ 100 ML IV SCH ×4 (00:43→23:16)
[2016-11-03] MEDS: MIDAZOLAM 100 MG/NS 100 ML DRIP Premix IV PRN ×3 (00:46→23:02)
[2016-11-03] MEDS: RESP: ALBUTEROL 2.5 MG/IPRATROPIUM 0.5 MG NEB (SCH) NEB ×4 (02:58→21:17)
[2016-11-03] MEDS: FOSPHENYTOIN SODIUM 100 MG PE/2 ML VIAL IV SCH ×4 (03:04→21:37)
[2016-11-03] MEDS: SODIUM CHLOR 0.45% 1000 ML INJ 1,000 ML IV SCH ×3 (05:06→21:37)
[2016-11-03] MEDS: INSULIN ASPART SUPPLEMENTAL SCALE SQ SCH (05:36)
[2016-11-03] MEDS: SODIUM CHLORIDE 0.9% IV SCH ×3 (08:56→19:53)
[2016-11-03] MEDS: METHYLPREDNISOLONE SO SUCC IV SCH ×3 (08:56→19:53)
[2016-11-03] MEDS: ENOXAPARIN SODIUM 40 MG/0.4 ML SYRINGE SQ SCH (08:56)
[2016-11-03] MEDS: CHLORHEXIDINE 0.12% (ORAL KIT) 15 ML CUP MT SCH ×2 (08:57→19:54)
[2016-11-03] MEDS: SODIUM CHLORIDE 0.9% FLUSH 10 ML FLUSH IV FLUSH SCH ×2 (08:58→19:54)
[2016-11-03] MEDS: ACYCLOVIR INJ 900 MG in SODIUM CHLORIDE 0.9% INJ 150 ML IV SCH ×2 (08:58→19:54)
[2016-11-03] MEDS: DOCUSATE SODIUM 100 MG/10 ML UDC PO SCH ×2 (08:58→19:53)
[2016-11-03] MEDS ORDERED: GLUCAGON 1 MG/ML VIAL OTHER PRN (10:00)
[2016-11-03] MEDS ORDERED: DEXTROSE 50% IN WATER 50 ML VIAL(D50) IV PRN (10:00)
--- NOTE | 2016-11-03 10:16 | HHI.CCPN ---
Subjective Remarks/Hospital Course Hospital Course: This is a 66-year-old man with history of diabetes, hypertension, dyslipidemia who about a month ago started having difficulty with balance with shuffling type of gait and resting tremor along with recent cognitive decline as well. His initial admission was on 10/06/16, as initial workup was negative patient was admitted to psych unit on 10/06/16 for suicidal ideations and altered mental status. He was evaluated by neurology Dr Branham, possibility of Parkinsonian symptoms and vitamin B 12 deficiency was entertained, but there was no improvement with treatment. He was re admitted to hospitalist service with worsening mental status on 10/25/16. Per Dr. Branham, MRI showed possible cerebritis. Differential included Creutzfeldt-Ministerio. But 14-3-3 protein for Creutzfeldt-Ministerio was negative. Currently on acyclovir for possibility of viral cerebritis. EEG done 10/24/16 showed generalized epileptiform activity. Patient was placed on Cerebyx, Keppra. Keppra was DCd due to rash and currently patient is on Cerebyx and Vimpat. Repeat EEGs from 10/31/16 and today shows continued seizure activity/subclinical seizures. Patient continues to be encephalopathic not responding. EEG today shows continued seizure activity indicating status epilepticus. Critical-care medicine was consulted by Dr. Branham today for continuous Versed infusion after intubation I evaluated the patient in ICU. He barely opens his eyes to painful stimuli localizes with right upper extremity withdrawal of any other extremities. Discussed with Dr. Branham multiple times. In his opinion, this appears to be a autoimmune encephalitis less likely to be infectious. Anti-NMDA receptor antibody ordered. Per Dr. Branham D/D possibly paraneoplastic, vasculitic or NMDA- receptor encephalitis. Currently patient is on IV Solu-Medrol and IVIG had been ordered by Dr. Branham. Initiate continuous EEG monitoring. TTP/HUS unlikely, but patient has E Coli UTI, I have asked for peripheral smear review by pathologist Subjective: 11/02: remains encephalopathic, but also very deeply sedated on versed drip. continuous EEG with intermittent sharp spikes that correspond with rhythmic neck movement. neurology adding additional anti-epileptics. peripheral smear without Schistocytes. currently receiving IVIG for possible auto-immune encephalopathy. 11/03 Patient remains sedated and intubated. Afebrile. Objective Vital Signs Date Time Temp Pulse Resp B/P (MAP) Pulse Ox O2 Delivery O2 Flow Rate FiO2 11/03/16 08:10 96 40 11/03/16 06:00 83 11/03/16 04:00 99.3 21 115/63 (80) 11/01/16 08:58 Nasal Cannula 4.00 Intake and Output 11/03/16 11/03/16 11/04/16 08:00 16:00 00:00 Intake Total 2950 ml Output Total 1250 ml Balance 1700 ml Result Diagram: 11/02/1659 11/02/162014 Other Results Laboratory Tests Test 11/02/16 12:06 11/02/16 20:15 Haptoglobin 215 MG/DL Prothrombin Time 13.5 SEC Prothromb Time International Ratio 1.2 RATIO Activated Partial Thromboplast Time 29.6 SEC Fibrinogen 185 mg/dL Blood Urea Nitrogen 44 MG/DL Creatinine 1.18 MG/DL Random Glucose 307 MG/DL Total Protein 5.4 GM/DL Calcium Level 7.4 MG/DL Lactate Dehydrogenase 432 U/L Total Bilirubin 1.3 MG/DL Direct Bilirubin 0.9 MG/DL Sodium Level 154 MEQ/L 150 MEQ/L Potassium Level 4.0 MEQ/L Chloride Level 122 MEQ/L Carbon Dioxide Level 25.8 MEQ/L Anion Gap 6 MEQ/L Estimat Glomerular Filtration Rate 61 ML/MIN Protein Corrected Calcium 8.3 MG/DL Indirect Bilirubin 0.4 MG/DL Phenytoin (Dilantin) Level 11.9 MCG/ML Imaging Last Impressions Chest X-Ray 11/01/16 0000 Signed Impressions: Service Date/Time: Tuesday, November 01, 2016 13:10 - CONCLUSION: ET and nasogastric in good position. Lungs are clear. Rahat Frey MD FACR Chest CT 11/01/16 0000 Signed Impressions: Service Date/Time: Tuesday, November 01, 2016 15:59 - CONCLUSION: Minimal nonspecific adenopathy the bibasilar parenchymal changes worse on the left. Rahat Frey MD FACR Abdomen/Pelvis CT 11/01/16 0000 Signed Impressions: Service Date/Time: Tuesday, November 01, 2016 16:04 - CONCLUSION: Nonspecific minimal bowel wall thickening transverse colon. There are no ancillary signs of malignancy. Rahat Frey MD FACR Brain MRI 10/31/16 0000 Signed Impressions: Service Date/Time: Monday, October 31, 2016 10:51 - CONCLUSION: 1. Subtle signal abdomen only at the pinto-white junction in the right hemisphere as above. The findings may reflect encephalitis or cerebritis Kranthi Lloyd MD Lumbar Puncture Fluoroscopy 10/26/16 0000 Signed Impressions: Service Date/Time: October 12:24 - CONCLUSION: Uncomplicated fluoroscopically guided cervical puncture. Kranthi Lloyd MD Objective Remarks GENERAL: middle-aged male, lying in bed, intubated, unresponsive and severely encephalopathic SKIN: Warm and dry. No lesions noted. HEENT: Normocephalic. Pupils equal 2 mm nonreactive. Disconjugate gaze CARDIOVASCULAR: Regular rate and rhythm. No murmur appreciated. RESPIRATORY: No accessory muscle use. Clear to auscultation. Breath sounds equal bilaterally. GASTROINTESTINAL: Abdomen soft, non-tender, nondistended. MUSCULOSKELETAL: No obvious deformities. No clubbing or cyanosis. No edema. NEUROLOGICAL: Deeply sedated on versed infusion. Patient is unresponsive. Pupils 2 mm millimeter unreactive with disconjugate gaze. To noxious stimuli there is partial eye opening, localizes with right upper extremity slight withdrawal of the right lower extremity. 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 Monitor levels Dilantin level : 11.9 on 11/02 - Workup negative for infectious encephalitis including CJD - Ongoing workup for autoimmune encephalitis, anti-NMDA receptor antibody pending - Continue acyclovir, - Continue IV Solu-Medrol 250mg IV Q6 and IVIG per Dr. Branham - TTP/HUS unlikely given lack of schistocytes on peripheral smear 11/01 RESP: Acute hypoxic and hypercarbic respiratory failure - Intubated for failure to protect airway from status epilepticus - ACV 16/550/5 50%, and dilated bundle - DuoNeb every 6 hours and when necessary - SBT daily as ryland CV: -Monitor HR and BP keep MAP>65mmHg GI: - IV Protonix for GI prophylaxis -Continue tube feeds- Glucerna 1.5 with goal rate 50ml/hr : Acute kidney injury - Monitor renal function, electrolytes replacement as needed -IVF 1/2NS@100ml/hr, Free water 300ml Q6, monitor sodium level. ID: Encephalitis is probably noninfectious E Coli UTI - On empiric acyclovir, d/c Acyclovir, HSV PCR is negative - TTP/HUS unlikely given negative peripheral smear for schistocytes -ID is following HEME: - Monitor CBC, CMP, coags - Thrombocytopenia has resolved ENDO: Type 2 diabetes - Electrolyte replacement per protocol - Change SSI to medium scale, add Levemir 7units BID PROPH: - Bilateral lower extremity SCDs. Lovenox 40 mg subcutaneous daily. IV Protonix LINES: - Utilize peripheral IVs, central line if needed Follow up on labs Level 3 Brad Sheridan MD Nov 03, 2016 10:16
[2016-11-03] MEDS: FREE WATER OG-TUBE SCH ×4 (12:00→23:19)
[2016-11-03] MEDS: INSULIN NovoLIN REGULAR SUPPLEMENTAL SCALE SQ SCH ×4 (12:00→23:00)
--- NOTE | 2016-11-03 12:22 | HHI.NPPN ---
Subjective History of Present Illness 66-year-old male known to me from before with past medical history of hypertension, diabetes mellitus, hyperlipidemia, history of depression, history of rapidly progressive dementia and altered mental status, history of possible chronic kidney disease who was admitted to the medical floor from the Psych department because of worsening mental status. I was called to see the patient because of elevated BUN and creatinine. The patient had elevated creatinine when he was in the Psych department and I saw him there and at that time the impression was that the patient has prerenal azotemia, he was not eating very good and his creatinine improved after he was getting the hydration. His creatinine was 1.7 and it improved to 1.2 to 1.4. Additional Remarks Patient is still intubated and now on CPAP. Review of Systems General General Remarks intubated and sedated. Objective Data Data Vital Signs Date Time Temp Pulse Resp B/P (MAP) Pulse Ox O2 Delivery O2 Flow Rate FiO2 11/03/16 11:07 96 40 11/03/16 08:10 96 40 11/03/16 06:00 83 11/03/16 04:06 96 40 11/03/16 04:00 83 11/03/16 04:00 99.3 89 21 115/63 (80) 97 11/03/16 04:00 40 11/03/16 02:00 93 11/03/16 00:34 97 40 11/03/16 00:00 40 11/03/16 00:00 93 11/03/16 00:00 98.7 87 21 131/70 (90) 97 11/02/16 22:00 93 11/02/16 20:38 99 40 11/02/16 20:00 93 11/02/16 20:00 98.7 93 21 133/71 (91) 97 11/02/16 20:00 40 11/02/16 20:00 40 11/02/16 18:00 68 11/02/16 18:00 92 31 135/71 (92) 97 11/02/16 16:00 40 11/02/16 16:00 68 11/02/16 16:00 98.8 88 21 128/71 (90) 97 11/02/16 15:42 96 40 11/02/16 14:00 68 11/02/16 13:58 96 40 11/02/16 13:45 81 19 131/71 -: 8/31/17 0859 11/02/162014 Physical Exam General Appearance Remarks intubated and sedated. Eyes Eye Exam: Pupils Equal Neck Neck Exam: Neck Supple Pulmonary Resp Exam: Breath Sounds Equal, No Distress, Rhonchi, Decreased Bases Cardiology CV Exam: Regular Gastrointestinal/Abdomen GI Exam: Soft, Non-Tender, Bowel Sounds Present, Non-Distended Extremeties Extremities Exam: Trace Edema Neurologic Neuro Exam: Sedated Assessment/Plan Assessment Summary: GEOVANY/Acute Renal Failure Problem List: (1) HTN (hypertension) ICD Codes: I10 - Essential (primary) hypertension (2) Diabetes ICD Codes: E11.9 - Type 2 diabetes mellitus without complications Status: Chronic (3) Seizure disorder ICD Codes: G40.909 - Epilepsy, unspecified, not intractable, without status epilepticus Status: Acute (4) Dyslipidemia ICD Codes: E78.5 - Hyperlipidemia, unspecified (5) Rapidly progressive dementia ICD Codes: F03.90 - Unspecified dementia without behavioral disturbance (6) GEOVANY (acute kidney injury) ICD Codes: N17.9 - Acute kidney failure, unspecified Status: Acute Plan Urine Na. was not low. Most likely has pre renal or obs. uropathy. Now with Mcdaniel's catheter. Repeat MRI and EEG done. Neurology following. Na. is improving, last was 150. On 1/2 NS and also GT feeding. No new BMP today. Seizure activity improved. Problem Qualifiers (1) HTN (hypertension): Qualified Codes: I10 - Essential (primary) hypertension (2) Diabetes: Madhuri Lott MD Nov 03, 2016 12:22
[2016-11-03] MEDS: INSULIN DETEMIR 100 UNITS/ML VIAL SQ SCH ×2 (12:27→20:30)
[2016-11-03 13:12] LABS: RETIC % 0.9 % (0.4-3.0)
[2016-11-03 13:14] LABS: APTT (PATIENT) 26.1 SEC (24.3-30.1); INTERNATIONAL NORMALIZED RATIO 1.1 RATIO; PROTHROMBIN TIME - PATIENT 12.5 SEC (9.8-11.6)
[2016-11-03 13:20] LABS: REVIEW FLAG FINAL
[2016-11-03 13:21] LABS: AUTOMATED NEUTROPHIL # 12.6 TH/MM3 (1.8-7.7); BASOPHIL % 0.1 % (0.0-2.0); HEMATOCRIT 36.4 % (39.0-51.0); LYMPH % 1.1 % (9.0-44.0); LYMPHOCYTE # 0.1 TH/MM3 (1.0-4.8); MEAN CELL VOLUME 91.2 FL (80.0-100.0); MEAN CORPUSCULAR HEMOGLOBIN 29.7 PG (27.0-34.0); MEAN CORPUSCULAR HGB CONC 32.6 % (32.0-36.0); NEUT % 95.8 % (16.0-70.0); PLATELET COUNT 54 TH/MM3 (150-450); RED BLOOD COUNT 3.99 MIL/MM3 (4.50-5.90); RED CELL DISTRIBUTION WIDTH 13.1 % (11.6-17.2); WHITE BLOOD COUNT 13.1 TH/MM3 (4.0-11.0)
[2016-11-03 13:29] LABS: HEMO FLAGS AUTO DIFF
[2016-11-03 13:35] LABS: BICARBONATE 26.7 MEQ/L (21.0-32.0); CALCIUM-PROTEIN CORRECTED 7.9 MG/DL (8.5-10.1); MAGNESIUM 2.4 MG/DL (1.5-2.5); POTASSIUM 3.9 MEQ/L (3.5-5.1); TOTAL BILIRUBIN ADULT 0.8 MG/DL (0.2-1.0)
--- NOTE | 2016-11-03 13:41 | PD.ONC.PN ---
Subjective Subjective Remarks Afebrile overnight. Remains intubated, sedated. at bedside. Objective Data Date Time Temp Pulse Resp B/P (MAP) Pulse Ox O2 Delivery O2 Flow Rate FiO2 11/03/16 11:07 96 40 11/03/16 08:10 96 40 11/03/16 06:00 83 11/03/16 04:06 96 40 11/03/16 04:00 83 11/03/16 04:00 99.3 89 21 115/63 (80) 97 11/03/16 04:00 40 11/03/16 02:00 93 11/03/16 00:34 97 40 11/03/16 00:00 40 11/03/16 00:00 93 11/03/16 00:00 98.7 87 21 131/70 (90) 97 11/02/16 22:00 93 11/02/16 20:38 99 40 11/02/16 20:00 93 11/02/16 20:00 98.7 93 21 133/71 (91) 97 11/02/16 20:00 40 11/02/16 20:00 40 11/02/16 18:00 68 11/02/16 18:00 92 31 135/71 (92) 97 11/02/16 16:00 40 11/02/16 16:00 68 11/02/16 16:00 98.8 88 21 128/71 (90) 97 11/02/16 15:42 96 40 11/02/16 14:00 68 11/02/16 13:58 96 40 11/02/16 13:45 81 19 131/71 11/03/16 11/03/16 11/03/16 06:59 14:59 22:59 Intake Total 2950 ml Output Total 1250 ml Balance 1700 ml Result Diagram: 11/03/16 1200 11/02/162014 Laboratory Results Laboratory Tests Test 11/02/16 20:15 11/03/16 12:00 Sodium Level 150 MEQ/L White Blood Count 13.1 TH/MM3 Red Blood Count 3.99 MIL/MM3 Hemoglobin 11.9 GM/DL Hematocrit 36.4 % Mean Corpuscular Volume 91.2 FL Mean Corpuscular Hemoglobin 29.7 PG Mean Corpuscular Hemoglobin Concent 32.6 % Red Cell Distribution Width 13.1 % Platelet Count 54 TH/MM3 Mean Platelet Volume 8.9 FL Neutrophils (%) (Auto) 95.8 % Lymphocytes (%) (Auto) 1.1 % Monocytes (%) (Auto) 3.0 % Eosinophils (%) (Auto) 0.0 % Basophils (%) (Auto) 0.1 % Neutrophils # (Auto) 12.6 TH/MM3 Lymphocytes # (Auto) 0.1 TH/MM3 Monocytes # (Auto) 0.4 TH/MM3 Eosinophils # (Auto) 0.0 TH/MM3 Basophils # (Auto) 0.0 TH/MM3 CBC Comment AUTO DIFF Reticulocyte Count 0.9 % Absolute Reticulocyte Count 37.6 MIL/L Prothrombin Time 12.5 SEC Prothromb Time International Ratio 1.1 RATIO Activated Partial Thromboplast Time 26.1 SEC Fibrinogen 183 mg/dL Administered Medications Medications (Trade) Dose Ordered Sig/Alyssa Route PRN Reason Start Time Stop Time Status Last Admin Dose Admin Sodium Chloride (NS Flush) 2 ml BID IV FLUSH 10/25/16 09:00 11/03/16 08:58 Methylprednisolone Sodium Succinate 250 mg/Sodium Chloride 50 ml @ 100 mls/hr Q6H IV 10/26/16 20:00 11/03/16 12:26 Lorazepam (Ativan Inj) 1 mg Q6H PRN IV AGITATION 10/26/16 21:30 11/01/16 11:17 Enalaprilat (Vasotec Inj) 1.25 mg Q6H PRN IV PUSH SBP > 170 10/26/16 21:30 10/27/16 13:35 Acyclovir Sodium 900 mg/Sodium Chloride 150 ml @ 150 mls/hr Q12H IV 10/27/16 22:00 11/03/16 08:58 Clonidine (Catapres-Tts 0.1mg Patch.7d) 1 patch Q7D T-DERMAL 10/29/16 16:00 10/29/16 16:58 Albuterol/ Ipratropium (Duoneb Neb) 1 ampule Q6HR NEB NEB 10/30/16 22:00 11/03/16 08:07 Lacosamide 100 mg/ Sodium Chloride 110 ml @ 110 mls/hr Q6H IV 11/01/16 15:00 11/03/16 08:57 Fosphenytoin Sodium (Cerebyx Inj) 100 mgpe Q6HR NEB IV 11/01/16 16:00 11/03/16 08:58 Chlorhexidine Gluconate (Peridex 0.12% Liq) 15 ml BID@08,20 MT 11/01/16 20:00 11/03/16 08:57 Midazolam HCl 100 ml @ 2 mls/hr TITRATE PRN IV SEDATION 11/01/16 12:30 11/03/16 00:46 Docusate Sodium (Colace Liq) 100 mg Q12HR PO 11/01/16 21:00 11/02/16 20:08 Pantoprazole Sodium (Protonix Inj) 40 mg Q24H IV PUSH 11/01/16 16:00 11/02/16 16:44 Enoxaparin Sodium (Lovenox Inj) 40 mg Q24H SQ 11/02/16 09:00 11/03/16 08:56 Sodium Chloride 1,000 ml @ 100 mls/hr Q10H IV 11/01/16 15:45 11/03/16 05:06 Water (Free Water) VOLUME OF WATER: ( 300 ) ML Q6HR OG-TUBE 11/01/16 18:00 11/03/16 12:00 Valproate Sodium 500 mg/Sodium Chloride 105 ml @ 105 mls/hr Q8H IV 11/02/16 11:00 11/03/16 12:26 Insulin Human Regular (NovoLIN R SUPPLEMENTAL SCALE) 1 Q4HR SQ 11/03/16 12:00 11/03/16 12:00 Insulin Detemir (Levemir Inj) 7 units Q12HR SQ 11/03/16 11:30 11/03/16 12:27 Objective Remarks GENERAL: Intubated, sedated male, supine in bed. SKIN: Warm and dry. HEAD: Normocephalic. EYES: No injection or drainage. NECK: Supple, trachea midline. CARDIOVASCULAR: Regular rate and rhythm RESPIRATORY: anterior stephen clear. on mechanical ventilation. GASTROINTESTINAL: Abdomen soft, nondistended. EXTREMITIES: No cyanosis NEUROLOGICAL: intubated, sedated. Assessment/Plan Problem List: (1) Thrombocytopenia ICD Codes: D69.6 - Thrombocytopenia, unspecified Plan: --?drug effect --has no significant hemolysis --LDH is only in the upper limits of normal at 332-->is unimpressive for hemolysis. --renal function is improving which argues against a hemolytic process. --peripheral smear review: does not support MONSERRAT (microangiopathic hemolysis) --Piyush test negative --coags/fibrinogen--> show mildly low fibrinogen, mildly prolonged PT, normal PTT. --HIT negative --no splenomegaly Assessment 66y/o male with thrombocytopenia, renal insufficiency suspicious for TTP/HUS. HPI( from initial consult): admitted on 10/24. He presented with dizziness. admitted to the psychiatric unit for SI and AMS. He was evaluated by neurology and Parkinson's and B12 deficiency is considered in the differential. His complements the history is suggesting that the mental status change has been acute in nature. He was subsequently transferred back to the medical floor. history of dyslipidemia, dysphasia, hypertension, diabetes. Imaging study, MRI of the brain showed no acute findings identified. VQ scan shows low probability for pulmonary embolism. Repeat brain MRI scan showed no acute intracranial process to produce the symptoms. Plan 1. await HIT 2. monitor CBC 3. check LE U/S r/o DVT Attending Statement The exam, history, and the medical decision-making described in the above note were completed with the assistance of the mid-level provider. I reviewed and agree with the findings presented. I attest that I had a [id number] encounter with the patient on the same day, and personally performed and documented my assessment and findings in the medical record. Unlikely TTP, renal function improving still, smear unimpressive for schistocytes. HIT antibodies neg. Tx for encephalitis/paraneoplastic process per neurology. Thrombocytopenia from low grade DIC, pt prolonged, fibrinogen decreased. Clinically unchanged, no bleeding. Will follow. Saira Celeste Nov 03, 2016 13:41 Deya Li MD Nov 03, 2016 20:02
[2016-11-03 14:01] LABS: PLATELET ESTIMATE SMEAR LOW (NORMAL); PLATELET MORPHOLOGY NORMAL (NORMAL); SCAN/DIFF AUTO DIFF CONFIRMED
[2016-11-03 14:52] LABS: HEPARIN AB OD 0.189 O.D. (0.000-0.300); HEPARIN INDUCED PLATELET AB NEGATIVE (NEGATIVE)
[2016-11-03] MEDS: PANTOPRAZOLE SODIUM 40 MG VIAL IV PUSH SCH (15:38)
--- NOTE | 2016-11-03 16:24 | RADRPT ---
EXAM DATE/TIME: 11/03/2016 15:19 [facility] COMPARISON: No previous studies available for comparison. INDICATIONS : Bilateral leg swelling and pain. MEDICAL HISTORY : Hypercholesterolemia. Gastroesophageal reflux disease. Osteoarthritis. Diabetes. Kidney stone. Hypert ension. Anticoagulant therapy. PTSD. Depression. SURGICAL HISTORY : Tonsillectomy.Umbilical hernia repair. ENCOUNTER: Initial ACUITY: 1 day PAIN SCORE: Non-responsive LOCATION: Bilateral legs. TECHNIQUE: Venous ultrasound of the left and right leg was performed from the inguinal ligament to the proximal calf. Real-time, color Doppler and spectral tracing, compression and augmentation techniques were us ed. FINDINGS: RIGHT LEG: There is normal compressibility of the deep venous system from the inguinal region to the proximal ca lf. No echogenic clot is seen in the lumen of the common femoral, femoral, popliteal, and posterior tibial veins. There is a normal response of the venous system to proximal and distal augmentation an d respiration. LEFT LEG: There is normal compressibility of the deep venous system from the inguinal region to the proximal ca lf. No echogenic clot is seen in the lumen of the common femoral, femoral, popliteal, and posterior tibial veins. There is a normal response of the venous system to proximal and distal augmentation an d respiration. CONCLUSION: Negative for deep venous thrombosis. Rahat Frey MD FACR on November 03, 2016 at 16:22 Board Certified Radiologist. This report was verified electronically.
--- NOTE | 2016-11-03 17:01 | HHI.PR ---
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 Differential includes possible anti-NMDA receptor encephalitis (antibody lab pending), paraneoplastic encephalitis Plan check phenytoin level. continue versed and vimpat and cerebyx. 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 continue solumedrol and ivig. follow up anti-NMDA receptor ab. check complete paraneoplastic antibody panel I spoke with pt and son. They do not wish transfer to [facility] at this time. reduce solumedrol dose to 125 mg iv Q 6 hr. Diagnosis/Plan: Subjective Subjective Comments No acute events reported He developed more epileptiform activity when versed was held. No resumed and EEG shows no epileptiform activity Active Medications Current Medications Medications (Trade) Dose Ordered Sig/Alyssa Route Start Time Stop Time Status Last Admin (NS Flush) 2 ml UNSCH PRN IV FLUSH 10/25/16 00:45 (NS Flush) 2 ml BID IV FLUSH 10/25/16 09:00 11/03/16 08:58 (Zofran Inj) 4 mg Q6H PRN IVP 10/25/16 00:45 (Narcan Inj) 0.4 mg UNSCH PRN IV 10/25/16 00:45 Methylprednisolone Sodium Succinate 250 mg/Sodium Chloride 50 ml @ 100 mls/hr Q6H IV 10/26/16 20:00 11/03/16 12:26 (Ativan Inj) 1 mg Q6H PRN IV 10/26/16 21:30 11/01/16 11:17 (Vasotec Inj) 1.25 mg Q6H PRN IV PUSH 10/26/16 21:30 10/27/16 13:35 Acyclovir Sodium 900 mg/Sodium Chloride 150 ml @ 150 mls/hr Q12H IV 10/27/16 22:00 11/03/16 08:58 (Catapres-Tts 0.1mg Patch.7d) 1 patch Q7D T-DERMAL 10/29/16 16:00 10/29/16 16:58 Miscellaneous Information 1 Q7D T-DERMAL 11/05/16 16:00 (Duoneb Neb) 1 ampule Q6HR NEB NEB 10/30/16 22:00 11/03/16 16:47 Lacosamide 100 mg/ Sodium Chloride 110 ml @ 110 mls/hr Q6H IV 11/01/16 15:00 11/03/16 15:00 (Cerebyx Inj) 100 mgpe Q6HR NEB IV 11/01/16 16:00 11/03/16 15:38 (Benadryl Inj) 50 mg UNSCH PRN IV PUSH 11/01/16 13:15 11/04/16 13:14 (Peridex 0.12% Liq) 15 ml BID@08,20 MT 11/01/16 20:00 11/03/16 08:57 Midazolam HCl 100 ml @ 2 mls/hr TITRATE PRN IV 11/01/16 12:30 11/03/16 00:46 (Duoneb Neb) 1 ampule Q6HR NEB PRN NEB 11/01/16 13:45 (Colace Liq) 100 mg Q12HR PO 11/01/16 21:00 11/02/16 20:08 (Protonix Inj) 40 mg Q24H IV PUSH 11/01/16 16:00 11/03/16 15:38 (Lovenox Inj) 40 mg Q24H SQ 11/02/16 09:00 11/03/16 08:56 Potassium Chloride 100 ml @ 50 mls/hr Q2H PRN IV 11/01/16 14:00 Potassium Chloride 100 ml @ 50 mls/hr Q2H PRN IV 11/01/16 14:00 (K-Lyte Cl Eff) 50 meq UNSCH PRN PO 11/01/16 14:00 Potassium Chloride 100 ml @ 25 mls/hr UNSCH PRN IV 11/01/16 14:00 Potassium Chloride 100 ml @ 50 mls/hr Q2H PRN IV 11/01/16 14:00 Magnesium Sulfate 4 gm/Sodium Chloride 100 ml @ 50 mls/hr UNSCH PRN IV 11/01/16 14:00 (Mag-Ox) 800 mg UNSCH PRN PO 11/01/16 14:00 Magnesium Sulfate 2 gm/Sodium Chloride 100 ml @ 50 mls/hr UNSCH PRN IV 11/01/16 14:00 (K-Phos) 2,000 mg Q4H PRN PO 11/01/16 14:00 Sodium Phosphate 30 mmol/Sodium Chloride 250 ml @ 42 mls/hr UNSCH PRN IV 11/01/16 14:00 (K-Phos) 2,000 mg UNSCH PRN PO/TUBE 11/01/16 14:00 Potassium Phosphate 30 mmol/ Sodium Chloride 260 ml @ 42 mls/hr UNSCH PRN IV 11/01/16 14:00 (Tylenol 160 Mg/ 5 ml Liq) 325 mg Q6H PRN NG 11/01/16 14:00 Sodium Chloride 1,000 ml @ 100 mls/hr Q10H IV 11/01/16 15:45 11/03/16 15:12 (Free Water) VOLUME OF WATER: ( 300 ) ML Q6HR OG-TUBE 11/01/16 18:00 11/03/16 15:40 Valproate Sodium 500 mg/Sodium Chloride 105 ml @ 105 mls/hr Q8H IV 11/02/16 11:00 11/03/16 12:26 (D50w (Vial) Inj) 50 ml UNSCH PRN IV 11/03/16 10:00 (Glucagon Inj) 1 mg UNSCH PRN OTHER 11/03/16 10:00 (NovoLIN R SUPPLEMENTAL SCALE) 1 Q4HR SQ 11/03/16 12:00 11/03/16 15:38 (Levemir Inj) 7 units Q12HR SQ 11/03/16 11:30 11/03/16 12:27 Allergies Allergies Coded Allergies penicillin G (Unverified Allergy, Severe, 10/17/16) Review of Systems All other ROS: ROS reviewed as documented in chart Exam I&O / VS Vital Signs Date Time Temp Pulse Resp B/P (MAP) Pulse Ox O2 Delivery O2 Flow Rate FiO2 11/03/16 15:31 94 40 11/03/16 12:30 100 23 141/74 (96) 96 11/03/16 12:00 100.6 101 22 133/72 (92) 95 11/03/16 11:30 95 27 147/80 (102) 97 11/03/16 11:07 96 40 11/03/16 11:00 83 18 134/71 (92) 96 11/03/16 10:30 86 22 139/84 (102) 96 11/03/16 10:00 86 30 140/83 (102) 98 11/03/16 09:30 80 20 118/69 (85) 98 11/03/16 09:15 85 20 128/70 (89) 98 11/03/16 09:00 86 21 127/69 (88) 98 11/03/16 08:30 83 18 115/65 (82) 96 11/03/16 08:10 96 40 11/03/16 08:00 99.1 79 16 112/65 (81) 96 11/03/16 06:00 83 11/03/16 04:06 96 40 11/03/16 04:00 83 11/03/16 04:00 99.3 89 21 115/63 (80) 97 11/03/16 04:00 40 11/03/16 02:00 93 11/03/16 00:34 97 40 11/03/16 00:00 40 11/03/16 00:00 93 11/03/16 00:00 98.7 87 21 131/70 (90) 97 11/02/16 22:00 93 11/02/16 20:38 99 40 11/02/16 20:00 93 11/02/16 20:00 98.7 93 21 133/71 (91) 97 11/02/16 20:00 40 11/02/16 20:00 40 11/02/16 18:00 68 11/02/16 18:00 92 31 135/71 (92) 97 Exam Comments Intubated and on versed--nonresponsive CN--PERRL, MOTOR--no focal deficit.No clinical sz activity Objective Micro and Labs Laboratory Tests Test 11/02/16 20:15 11/03/16 12:00 Sodium Level 150 150 White Blood Count 13.1 Red Blood Count 3.99 Hemoglobin 11.9 Hematocrit 36.4 Mean Corpuscular Volume 91.2 Mean Corpuscular Hemoglobin 29.7 Mean Corpuscular Hemoglobin Concent 32.6 Red Cell Distribution Width 13.1 Platelet Count 54 Mean Platelet Volume 8.9 Neutrophils (%) (Auto) 95.8 Lymphocytes (%) (Auto) 1.1 Monocytes (%) (Auto) 3.0 Eosinophils (%) (Auto) 0.0 Basophils (%) (Auto) 0.1 Neutrophils # (Auto) 12.6 Lymphocytes # (Auto) 0.1 Monocytes # (Auto) 0.4 Eosinophils # (Auto) 0.0 Basophils # (Auto) 0.0 CBC Comment AUTO DIFF Differential Comment AUTO DIFF CONFIRMED Platelet Estimate LOW Platelet Morphology Comment NORMAL Ovalocytes Reticulocyte Count 0.9 Absolute Reticulocyte Count 37.6 Prothrombin Time 12.5 Prothromb Time International Ratio 1.1 Activated Partial Thromboplast Time 26.1 Fibrinogen 183 Blood Urea Nitrogen 38 Creatinine 1.13 Random Glucose 227 Total Protein 6.0 Albumin 1.7 Calcium Level 7.3 Phosphorus Level 1.8 Magnesium Level 2.4 Alkaline Phosphatase 86 Aspartate Amino Transf (AST/SGOT) 66 Alanine Aminotransferase (ALT/SGPT) 205 Total Bilirubin 0.8 Potassium Level 3.9 Chloride Level 116 Carbon Dioxide Level 26.7 Anion Gap 7 Estimat Glomerular Filtration Rate 65 Protein Corrected Calcium 7.9 Date/Time Source Procedure Growth Status 10/26/16 13:00 Cerebral Spinal Fluid Lumbar Puncture Fungal Smear - Final NO FUNGAL ELEMENTS SEEN. Resulted 10/26/16 13:00 Cerebral Spinal Fluid Lumbar Puncture Fungal Culture - Preliminary NO GROWTH IN 1 WEEK Resulted 10/30/16 12:25 Urine Clean Catch Urine Culture - Final Escherichia Coli Complete Miguelito Branham PhD Nov 03, 2016 17:01
--- NOTE | 2016-11-03 17:48 | HHI.PR ---
Subjective Remarks 66 YOWM with AMS, sz, renal insuff Intubated for airway protection Sedated with Versed at BS Tolerated CPAP briefly Objective Vital Signs Vital Signs Date Time Temp Pulse Resp B/P (MAP) Pulse Ox O2 Delivery O2 Flow Rate FiO2 11/03/16 15:31 94 40 11/03/16 12:30 100 23 141/74 (96) 96 11/03/16 12:00 100.6 101 22 133/72 (92) 95 11/03/16 11:30 95 27 147/80 (102) 97 11/03/16 11:07 96 40 11/03/16 11:00 83 18 134/71 (92) 96 11/03/16 10:30 86 22 139/84 (102) 96 11/03/16 10:00 86 30 140/83 (102) 98 11/03/16 09:30 80 20 118/69 (85) 98 11/03/16 09:15 85 20 128/70 (89) 98 11/03/16 09:00 86 21 127/69 (88) 98 11/03/16 08:30 83 18 115/65 (82) 96 11/03/16 08:10 96 40 11/03/16 08:00 99.1 79 16 112/65 (81) 96 11/03/16 06:00 83 11/03/16 04:06 96 40 11/03/16 04:00 83 11/03/16 04:00 99.3 89 21 115/63 (80) 97 11/03/16 04:00 40 11/03/16 02:00 93 11/03/16 00:34 97 40 11/03/16 00:00 40 11/03/16 00:00 93 11/03/16 00:00 98.7 87 21 131/70 (90) 97 11/02/16 22:00 93 11/02/16 20:38 99 40 11/02/16 20:00 93 11/02/16 20:00 98.7 93 21 133/71 (91) 97 11/02/16 20:00 40 11/02/16 20:00 40 11/02/16 18:00 68 11/02/16 18:00 92 31 135/71 (92) 97 I/O 11/02/16 11/02/16 11/02/16 11/03/16 9/1/17 9/1/17 06:59 14:59 22:59 06:59 14:59 22:59 Intake Total 1155 ml 6456 ml 2950 ml Output Total 1400 ml 2875 ml 1250 ml Balance -245 ml 3581 ml 1700 ml Intake Oral 0 ml IV Total 3938 ml 1750 ml Tube Feeding 555 ml 1245 ml 575 ml Tube Irrigant 1273 ml 625 ml Other 600 ml Output Urine Total 1125 ml 2350 ml 1125 ml Stool Total 275 ml 525 ml 125 ml Result Diagram: 11/03/16 1200 11/03/16 1200 Objective Remarks GENERAL: WBWN male, unresponsive SKIN: Warm and dry. HEAD: Normocephalic. EYES: No scleral icterus. No injection or drainage. NECK: Supple, trachea midline. No JVD or lymphadenopathy. CARDIOVASCULAR: Regular rate and rhythm without murmurs, gallops, or rubs. RESPIRATORY: Breath sounds equal bilaterally. No accessory muscle use. GASTROINTESTINAL: Abdomen soft, non-tender, nondistended. MUSCULOSKELETAL: No cyanosis, or edema. BACK: Nontender without obvious deformity. No CVA tenderness. A/P Assessment and Plan AMS SZ disorder Renal insuff ? Cerebritis RF, on vent PLAN Vent Support Cerebyx per Neuro IV Solumedrol Monitor renal functions Neuro following pt. DW at [facility],Stanley Ramon MD Nov 03, 2016 17:47
[2016-11-03] MEDS ORDERED: DIPHENHYDRAMINE HCL 50 MG/ML VIAL Reaction Med IV PUSH PRN (19:15)
[2016-11-03] MEDS: DIPHENHYDRAMINE HCL 25 MG CAP Pre-med PO SCH (19:53)
[2016-11-03] MEDS: ACETAMINOPHEN 325 MG TAB Pre-med PO SCH (19:53)
[2016-11-03] MEDS: methylPREDNISolone SOD SUCC 125 MG/2 ML VIAL IV SCH (19:55)
[2016-11-03] MEDS: NS 500 ML Pre-hydration IV SCH (19:55)
[2016-11-03] MEDS ORDERED: EPINEPHRINE HCL (1:1000) 1 MG/ML AMP Reaction Med OTHER PRN (20:00)
[2016-11-03] MEDS ORDERED: SODIUM CHLORIDE 0.9% IV SCH (20:00)
[2016-11-03] MEDS ORDERED: METHYLPREDNISOLONE SO SUCC IV SCH (20:00)
[2016-11-03] MEDS: IMMUNE GLOBULIN INJ 40 GM in SYRINGE/BAG 1 EA IV SCH (20:35)
[2016-11-03] MEDS: D5W as prime bag (IVIG as secondary) IV SCH (20:35)
--- NOTE | 2016-11-03 21:06 | MG ---
cc: VIOLETTA DWYER MD Lab No: [id number] Date: 11/03/16 Age: 66 Sex: M Race: DATE OF [address] Branham. Intubated on Versed. Follow-up EEG - last one showed still some spike, change in mental status, head injury. Depakote Cerebyx Glucosamine Versed Acyclovir Possible encephalitis. DESCRIPTION OF RECORD A low amplitude EEG predominately of delta wave frequency, some muscle artifact. Electrocardiogram looks sinus. No epileptiform features. Photic stimulation. No significant driving response observed. IMPRESSION Abnormal EEG due to suppressed background effect consistent with encephalopathic process versus medicine effect. However, there are no epileptiform features. Clinical correlation. Violetta Dwyer MD DF/ /7:14 PM /8:56 PM
[2016-11-03] MEDS: LORazepam 2 MG/ML VIAL IV PRN (23:29)
[2016-11-04] VITALS (19 sets, daily range): BP systolic 101–140; BP diastolic 56–80; PULSE 75–111; RESP 17–25; TEMP 97.9–101; O2SAT 92–100
[2016-11-04] MEDS: RESP: ALBUTEROL 2.5 MG/IPRATROPIUM 0.5 MG NEB (PRN) NEB ×2 (00:15→20:39)
[2016-11-04] MEDS: methylPREDNISolone SOD SUCC 125 MG/2 ML VIAL IV SCH ×4 (00:40→20:00)
[2016-11-04] MEDS: LACOSAMIDE INJ 100 MG in SODIUM CHLORIDE 0.9% INJ 100 ML IV SCH ×4 (00:42→21:00)
[2016-11-04 02:37] LABS: AUTOMATED NEUTROPHIL # 11.1 TH/MM3 (1.8-7.7); BASOPHIL % 0.1 % (0.0-2.0); LYMPH % 2.8 % (9.0-44.0); LYMPHOCYTE # 0.3 TH/MM3 (1.0-4.8); MEAN CORPUSCULAR HEMOGLOBIN 29.2 PG (27.0-34.0); MEAN CORPUSCULAR HGB CONC 32.1 % (32.0-36.0); MONO % 4.8 % (0.0-8.0); NEUT % 92.3 % (16.0-70.0); PLATELET COUNT 46 TH/MM3 (150-450); RED BLOOD COUNT 3.74 MIL/MM3 (4.50-5.90); RED CELL DISTRIBUTION WIDTH 13.1 % (11.6-17.2)
[2016-11-04 02:38] LABS: HEMO FLAGS AUTO DIFF
[2016-11-04] MEDS: FOSPHENYTOIN SODIUM 100 MG PE/2 ML VIAL IV SCH ×4 (02:59→22:37)
[2016-11-04] MEDS: INSULIN NovoLIN REGULAR SUPPLEMENTAL SCALE SQ SCH ×5 (03:00→20:00)
[2016-11-04 03:07] LABS: BICARBONATE 27.1 MEQ/L (21.0-32.0); CALCIUM-PROTEIN CORRECTED 7.6 MG/DL (8.5-10.1); POTASSIUM 3.8 MEQ/L (3.5-5.1); TOTAL BILIRUBIN ADULT 0.5 MG/DL (0.2-1.0)
[2016-11-04 03:15] LABS: SCAN/DIFF AUTO DIFF CONFIRMED
[2016-11-04] MEDS: LORazepam 2 MG/ML VIAL IV PRN ×2 (06:20→16:45)
[2016-11-04] MEDS: CHLORHEXIDINE 0.12% (ORAL KIT) 15 ML CUP MT SCH ×2 (08:49→20:00)
[2016-11-04] MEDS: SODIUM CHLORIDE 0.9% FLUSH 10 ML FLUSH IV FLUSH SCH ×2 (08:50→22:38)
[2016-11-04] MEDS: DOCUSATE SODIUM 100 MG/10 ML UDC PO SCH ×2 (08:50→21:00)
[2016-11-04] MEDS: ENOXAPARIN SODIUM 40 MG/0.4 ML SYRINGE SQ SCH (08:52)
[2016-11-04] MEDS: INSULIN DETEMIR 100 UNITS/ML VIAL SQ SCH ×2 (09:05→20:10)
[2016-11-04] MEDS: ACYCLOVIR INJ 900 MG in SODIUM CHLORIDE 0.9% INJ 150 ML IV SCH (09:26)
--- NOTE | 2016-11-04 10:04 | HHI.CCPN ---
Subjective Remarks/Hospital Course Hospital Course: This is a 66-year-old man with history of diabetes, hypertension, dyslipidemia who about a month ago started having difficulty with balance with shuffling type of gait and resting tremor along with recent cognitive decline as well. His initial admission was on 10/06/16, as initial workup was negative patient was admitted to psych unit on 10/06/16 for suicidal ideations and altered mental status. He was evaluated by neurology Dr Branham, possibility of Parkinsonian symptoms and vitamin B 12 deficiency was entertained, but there was no improvement with treatment. He was re admitted to hospitalist service with worsening mental status on 10/25/16. Per Dr. Branham, MRI showed possible cerebritis. Differential included Creutzfeldt-Ministerio. But 14-3-3 protein for Creutzfeldt-Ministerio was negative. Currently on acyclovir for possibility of viral cerebritis. EEG done 10/24/16 showed generalized epileptiform activity. Patient was placed on Cerebyx, Keppra. Keppra was DCd due to rash and currently patient is on Cerebyx and Vimpat. Repeat EEGs from 10/31/16 and today shows continued seizure activity/subclinical seizures. Patient continues to be encephalopathic not responding. EEG today shows continued seizure activity indicating status epilepticus. Critical-care medicine was consulted by Dr. Branham today for continuous Versed infusion after intubation I evaluated the patient in ICU. He barely opens his eyes to painful stimuli localizes with right upper extremity withdrawal of any other extremities. Discussed with Dr. Branham multiple times. In his opinion, this appears to be a autoimmune encephalitis less likely to be infectious. Anti-NMDA receptor antibody ordered. Per Dr. Branham D/D possibly paraneoplastic, vasculitic or NMDA- receptor encephalitis. Currently patient is on IV Solu-Medrol and IVIG had been ordered by Dr. Branham. Initiate continuous EEG monitoring. TTP/HUS unlikely, but patient has E Coli UTI, I have asked for peripheral smear review by pathologist Subjective: 11/02: remains encephalopathic, but also very deeply sedated on versed drip. continuous EEG with intermittent sharp spikes that correspond with rhythmic neck movement. neurology adding additional anti-epileptics. peripheral smear without Schistocytes. currently receiving IVIG for possible auto-immune encephalopathy. 11/03 Patient remains sedated and intubated. Afebrile. 11/04 Patient remains intubated and sedated with Versed 10mg/hr. Tmax 100.6 Objective Vital Signs Date Time Temp Pulse Resp B/P (MAP) Pulse Ox O2 Delivery O2 Flow Rate FiO2 11/04/16 08:37 98 35 11/04/16 04:00 98.9 75 21 127/71 (89) 11/01/16 08:58 Nasal Cannula 4.00 Intake and Output 11/04/16 11/04/16 11/05/16 08:00 16:00 00:00 Intake Total 2750 ml Output Total 1100 ml Balance 1650 ml Result Diagram: 11/04/16 0218 11/04/16 0218 Other Results Laboratory Tests Test 11/03/16 12:00 11/03/16 18:50 11/04/16 02:18 White Blood Count 13.1 TH/MM3 12.0 TH/MM3 Red Blood Count 3.99 MIL/MM3 3.74 MIL/MM3 Hemoglobin 11.9 GM/DL 10.9 GM/DL Hematocrit 36.4 % 34.0 % Mean Corpuscular Volume 91.2 FL 91.0 FL Mean Corpuscular Hemoglobin 29.7 PG 29.2 PG Mean Corpuscular Hemoglobin Concent 32.6 % 32.1 % Red Cell Distribution Width 13.1 % 13.1 % Platelet Count 54 TH/MM3 46 TH/MM3 Mean Platelet Volume 8.9 FL 8.5 FL Neutrophils (%) (Auto) 95.8 % 92.3 % Lymphocytes (%) (Auto) 1.1 % 2.8 % Monocytes (%) (Auto) 3.0 % 4.8 % Eosinophils (%) (Auto) 0.0 % 0.0 % Basophils (%) (Auto) 0.1 % 0.1 % Neutrophils # (Auto) 12.6 TH/MM3 11.1 TH/MM3 Lymphocytes # (Auto) 0.1 TH/MM3 0.3 TH/MM3 Monocytes # (Auto) 0.4 TH/MM3 0.6 TH/MM3 Eosinophils # (Auto) 0.0 TH/MM3 0.0 TH/MM3 Basophils # (Auto) 0.0 TH/MM3 0.0 TH/MM3 CBC Comment AUTO DIFF AUTO DIFF Differential Comment AUTO DIFF CONFIRMED AUTO DIFF CONFIRMED Platelet Estimate LOW Platelet Morphology Comment NORMAL Ovalocytes Reticulocyte Count 0.9 % Absolute Reticulocyte Count 37.6 MIL/L Prothrombin Time 12.5 SEC Prothromb Time International Ratio 1.1 RATIO Activated Partial Thromboplast Time 26.1 SEC Fibrinogen 183 mg/dL Blood Urea Nitrogen 38 MG/DL 36 MG/DL Creatinine 1.13 MG/DL 1.12 MG/DL Random Glucose 227 MG/DL 189 MG/DL Total Protein 6.0 GM/DL 5.8 GM/DL Albumin 1.7 GM/DL 1.5 GM/DL Calcium Level 7.3 MG/DL 6.9 MG/DL Phosphorus Level 1.8 MG/DL Magnesium Level 2.4 MG/DL Alkaline Phosphatase 86 U/L 64 U/L Aspartate Amino Transf (AST/SGOT) 66 U/L 47 U/L Alanine Aminotransferase (ALT/SGPT) 205 U/L 146 U/L Total Bilirubin 0.8 MG/DL 0.5 MG/DL Sodium Level 150 MEQ/L 149 MEQ/L 149 MEQ/L Potassium Level 3.9 MEQ/L 3.8 MEQ/L Chloride Level 116 MEQ/L 114 MEQ/L Carbon Dioxide Level 26.7 MEQ/L 27.1 MEQ/L Anion Gap 7 MEQ/L 8 MEQ/L Estimat Glomerular Filtration Rate 65 ML/MIN 65 ML/MIN Protein Corrected Calcium 7.9 MG/DL 7.6 MG/DL Lactate Dehydrogenase 350 U/L Phenytoin (Dilantin) Level 7.5 MCG/ML 6.6 MCG/ML Valproic Acid (Depakene) Level 58 MCG/ML 48 MCG/ML Imaging Last Impressions Lower Extremity Ultrasound 11/03/16 0000 Signed Impressions: Service Date/Time: Thursday, November 03, 2016 15:19 - CONCLUSION: Negative for deep venous thrombosis. Rahat Frey MD FACR Chest X-Ray 11/01/16 0000 Signed Impressions: Service Date/Time: Tuesday, November 01, 2016 13:10 - CONCLUSION: ET and nasogastric in good position. Lungs are clear. Rahat Frey MD FACR Chest CT 11/01/16 0000 Signed Impressions: Service Date/Time: Tuesday, November 01, 2016 15:59 - CONCLUSION: Minimal nonspecific adenopathy the bibasilar parenchymal changes worse on the left. Rahat Frey MD FACR Abdomen/Pelvis CT 11/01/16 0000 Signed Impressions: Service Date/Time: Tuesday, November 01, 2016 16:04 - CONCLUSION: Nonspecific minimal bowel wall thickening transverse colon. There are no ancillary signs of malignancy. Rahat Frey MD FACR Brain MRI 10/31/16 0000 Signed Impressions: Service Date/Time: Monday, October 31, 2016 10:51 - CONCLUSION: 1. Subtle signal abdomen only at the pinto-white junction in the right hemisphere as above. The findings may reflect encephalitis or cerebritis Kranthi Lloyd MD Lumbar Puncture Fluoroscopy 10/26/16 0000 Signed Impressions: Service Date/Time: October 12:24 - CONCLUSION: Uncomplicated fluoroscopically guided cervical puncture. Kranthi Lloyd MD Objective Remarks GENERAL: middle-aged male, lying in bed, intubated, unresponsive and severely encephalopathic SKIN: Warm and dry. No lesions noted. HEENT: Normocephalic. Pupils equal 2 mm nonreactive. Disconjugate gaze CARDIOVASCULAR: Regular rate and rhythm. No murmur appreciated. RESPIRATORY: No accessory muscle use. Clear to auscultation. Breath sounds equal bilaterally. GASTROINTESTINAL: Abdomen soft, non-tender, nondistended. MUSCULOSKELETAL: No obvious deformities. No clubbing or cyanosis. No edema. NEUROLOGICAL: Deeply sedated on versed infusion. Patient is unresponsive. Pupils 2 mm millimeter unreactive with disconjugate gaze. To noxious stimuli there is partial eye opening, localizes with right upper extremity slight withdrawal of the right lower extremity. 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 Monitor levels Dilantin level : 6.6 today - Workup negative for infectious encephalitis including CJD - Ongoing workup for autoimmune encephalitis, anti-NMDA receptor antibody pending - Continue acyclovir, - Continue IV Solu-Medrol 125mg IV Q6 and IVIG per Dr. Branham - TTP/HUS unlikely given lack of schistocytes on peripheral smear 11/01 RESP: Acute hypoxic and hypercarbic respiratory failure - Intubated for failure to protect airway from status epilepticus - ACV 16/550/5 40%, and ICU vent bundle - DuoNeb every 6 hours and when necessary - SBT daily as ryland CV: -Monitor HR and BP keep MAP>65mmHg GI: - IV Protonix for GI prophylaxis -Continue tube feeds- Glucerna 1.5 @ 50ml/hr : Acute kidney injury - Monitor renal function, electrolytes replacement as needed -IVF 1/2NS@100ml/hr, Free water 300ml Q6, monitor sodium level. ID: Encephalitis is probably noninfectious E Coli UTI - On empiric acyclovir, d/c Acyclovir, HSV PCR is negative - TTP/HUS unlikely given negative peripheral smear for schistocytes -ID is following HEME: - Monitor CBC, CMP, coags -HIT panel is negative ENDO: Type 2 diabetes - Electrolyte replacement per protocol - On SSI (medium scale), Levemir 7units BID PROPH: - Bilateral lower extremity SCDs. Hold Lovenox 40 mg SQ daily for PLT < 50 - IV Protonix LINES: - Utilize peripheral IVs, central line if needed Level 3 Brad Sheridan MD Nov 04, 2016 10:04
--- NOTE | 2016-11-04 11:07 | HHI.PR ---
Subjective Remarks sedation off now for 2 hrs no sz's seen unresponsive Objective Vital Signs Date Time Temp Pulse Resp B/P (MAP) Pulse Ox O2 Delivery O2 Flow Rate FiO2 11/04/16 10:00 80 11/04/16 08:37 98 35 11/04/16 08:00 40 11/04/16 08:00 97.9 80 17 133/80 (97) 100 11/04/16 08:00 80 11/04/16 08:00 40 11/04/16 08:00 80 11/04/16 04:30 97 40 11/04/16 04:00 98.9 75 21 127/71 (89) 95 11/04/16 04:00 40 11/04/16 01:21 99 40 11/04/16 00:00 40 11/04/16 00:00 98.9 76 21 101/56 (71) 95 11/03/16 21:17 96 40 11/03/16 20:35 81 18 131/78 11/03/16 20:00 98.9 80 21 130/70 (90) 95 11/03/16 20:00 40 11/03/16 17:30 90 21 132/74 (93) 95 11/03/16 17:15 90 20 133/72 (92) 95 11/03/16 17:00 90 21 132/74 (93) 94 11/03/16 16:45 91 21 134/74 (94) 93 11/03/16 16:30 92 21 136/74 (94) 94 11/03/16 16:15 92 22 134/72 (92) 94 11/03/16 16:00 100.5 94 21 128/70 (89) 94 11/03/16 16:00 40 11/03/16 15:45 94 22 139/79 (99) 94 11/03/16 15:31 94 40 11/03/16 15:30 100 23 141/82 (101) 94 11/03/16 15:15 92 18 144/76 (98) 95 11/03/16 15:00 92 18 139/78 (98) 95 11/03/16 14:45 92 19 144/76 (98) 95 11/03/16 14:30 93 22 144/77 (99) 95 11/03/16 14:15 96 26 147/84 (105) 95 11/03/16 14:00 96 22 145/77 (99) 96 11/03/16 13:45 96 21 142/76 (98) 96 11/03/16 13:30 96 23 146/76 (99) 96 11/03/16 13:15 94 22 141/76 (97) 96 11/03/16 13:00 96 20 130/74 (92) 95 11/03/16 12:30 100 23 141/74 (96) 96 11/03/16 12:00 100.6 101 22 133/72 (92) 95 11/03/16 12:00 40 11/03/16 11:30 95 27 147/80 (102) 97 11/03/16 11:07 96 40 I/O 11/03/16 11/03/16 11/03/16 11/04/16 11/04/16 11/04/16 07:00 15:00 23:00 07:00 15:00 23:00 Intake Total 2950 ml 6475 ml 2750 ml Output Total 1250 ml 3700 ml 1100 ml Balance 1700 ml 2775 ml 1650 ml IV Total 1750 ml 3975 ml 1750 ml Tube Feeding 575 ml 1275 ml 375 ml Tube Irrigant 625 ml 1225 ml 625 ml Output Urine Total 1125 ml 3575 ml 975 ml Stool Total 125 ml 125 ml 125 ml Result Diagram: 11/04/1621711/04/16217 Other Results intubated vent not following pp pupils no gaze no eye opening no w/d to pain blunted dtr's toes silent Medications and IVs corrected pht-,vpa Assessment and Plan Assessment and Plan ?encephalitis seizures -cont vimpat,vpa and pht check levels pht,vpa pendig antinmda ab's and paraneoplastic panel. keep off sedation unless sz's reoccur. Violetta Dwyer MD Nov 04, 2016 11:07
--- NOTE | 2016-11-04 11:15 | HHI.IDPN ---
Subjective Subjective Remarks ID [id number] for Dr Nguyen Chart was reviewed 66 yo male with dizziness, twitching started 6 weeks ago, progressive MS change , seizures Now intubated Unresponsive during sedation vacation x 2 hrs curretnly afebrile, fevers low grade few days ago has liquid diarrhea, tested negative for c.dff MRI with cerebritis/encephalitis Antibiotics acyclovir Allergies: Coded Allergies: penicillin G (Unverified Allergy, Severe, 10/17/16) Objective . Vital Signs Date Time Temp Pulse Resp B/P (MAP) Pulse Ox O2 Delivery O2 Flow Rate FiO2 11/04/16 10:00 80 11/04/16 08:37 98 35 11/04/16 08:00 40 11/04/16 08:00 97.9 80 17 133/80 (97) 100 11/04/16 08:00 80 11/04/16 08:00 40 11/04/16 08:00 80 11/04/16 04:30 97 40 11/04/16 04:00 98.9 75 21 127/71 (89) 95 11/04/16 04:00 40 11/04/16 01:21 99 40 11/04/16 00:00 40 11/04/16 00:00 98.9 76 21 101/56 (71) 95 11/03/16 21:17 96 40 11/03/16 20:35 81 18 131/78 11/03/16 20:00 98.9 80 21 130/70 (90) 95 11/03/16 20:00 40 11/03/16 17:30 90 21 132/74 (93) 95 11/03/16 17:15 90 20 133/72 (92) 95 11/03/16 17:00 90 21 132/74 (93) 94 11/03/16 16:45 91 21 134/74 (94) 93 11/03/16 16:30 92 21 136/74 (94) 94 11/03/16 16:15 92 22 134/72 (92) 94 11/03/16 16:00 100.5 94 21 128/70 (89) 94 11/03/16 16:00 40 11/03/16 15:45 94 22 139/79 (99) 94 11/03/16 15:31 94 40 11/03/16 15:30 100 23 141/82 (101) 94 11/03/16 15:15 92 18 144/76 (98) 95 11/03/16 15:00 92 18 139/78 (98) 95 11/03/16 14:45 92 19 144/76 (98) 95 11/03/16 14:30 93 22 144/77 (99) 95 11/03/16 14:15 96 26 147/84 (105) 95 11/03/16 14:00 96 22 145/77 (99) 96 11/03/16 13:45 96 21 142/76 (98) 96 11/03/16 13:30 96 23 146/76 (99) 96 11/03/16 13:15 94 22 141/76 (97) 96 11/03/16 13:00 96 20 130/74 (92) 95 11/03/16 12:30 100 23 141/74 (96) 96 11/03/16 12:00 100.6 101 22 133/72 (92) 95 11/03/16 12:00 40 11/03/16 11:30 95 27 147/80 (102) 97 11/03/16 11:07 96 40 . Laboratory Tests Test 11/02/16 12:06 11/03/16 12:00 11/04/16 02:18 Haptoglobin 215 MG/DL White Blood Count 13.1 TH/MM3 12.0 TH/MM3 Red Blood Count 3.99 MIL/MM3 3.74 MIL/MM3 Hemoglobin 11.9 GM/DL 10.9 GM/DL Hematocrit 36.4 % 34.0 % Mean Corpuscular Volume 91.2 FL 91.0 FL Mean Corpuscular Hemoglobin 29.7 PG 29.2 PG Mean Corpuscular Hemoglobin Concent 32.6 % 32.1 % Red Cell Distribution Width 13.1 % 13.1 % Platelet Count 54 TH/MM3 46 TH/MM3 Mean Platelet Volume 8.9 FL 8.5 FL Neutrophils (%) (Auto) 95.8 % 92.3 % Lymphocytes (%) (Auto) 1.1 % 2.8 % Monocytes (%) (Auto) 3.0 % 4.8 % Eosinophils (%) (Auto) 0.0 % 0.0 % Basophils (%) (Auto) 0.1 % 0.1 % Neutrophils # (Auto) 12.6 TH/MM3 11.1 TH/MM3 Lymphocytes # (Auto) 0.1 TH/MM3 0.3 TH/MM3 Monocytes # (Auto) 0.4 TH/MM3 0.6 TH/MM3 Eosinophils # (Auto) 0.0 TH/MM3 0.0 TH/MM3 Basophils # (Auto) 0.0 TH/MM3 0.0 TH/MM3 CBC Comment AUTO DIFF AUTO DIFF Differential Comment AUTO DIFF CONFIRMED AUTO DIFF CONFIRMED Platelet Estimate LOW Platelet Morphology Comment NORMAL Ovalocytes Reticulocyte Count 0.9 % Absolute Reticulocyte Count 37.6 MIL/L Laboratory Tests Test 11/02/16 12:06 11/02/16 20:15 11/03/16 12:00 11/03/16 18:50 Blood Urea Nitrogen 44 MG/DL 38 MG/DL Creatinine 1.18 MG/DL 1.13 MG/DL Random Glucose 307 MG/DL 227 MG/DL Total Protein 5.4 GM/DL 6.0 GM/DL Calcium Level 7.4 MG/DL 7.3 MG/DL Lactate Dehydrogenase 432 U/L 350 U/L Total Bilirubin 1.3 MG/DL 0.8 MG/DL Direct Bilirubin 0.9 MG/DL Sodium Level 154 MEQ/L 150 MEQ/L 150 MEQ/L 149 MEQ/L Potassium Level 4.0 MEQ/L 3.9 MEQ/L Chloride Level 122 MEQ/L 116 MEQ/L Carbon Dioxide Level 25.8 MEQ/L 26.7 MEQ/L Anion Gap 6 MEQ/L 7 MEQ/L Estimat Glomerular Filtration Rate 61 ML/MIN 65 ML/MIN Protein Corrected Calcium 8.3 MG/DL 7.9 MG/DL Indirect Bilirubin 0.4 MG/DL Albumin 1.7 GM/DL Phosphorus Level 1.8 MG/DL Magnesium Level 2.4 MG/DL Alkaline Phosphatase 86 U/L Aspartate Amino Transf (AST/SGOT) 66 U/L Alanine Aminotransferase (ALT/SGPT) 205 U/L Test 11/04/16 02:18 Blood Urea Nitrogen 36 MG/DL Creatinine 1.12 MG/DL Random Glucose 189 MG/DL Total Protein 5.8 GM/DL Albumin 1.5 GM/DL Calcium Level 6.9 MG/DL Alkaline Phosphatase 64 U/L Aspartate Amino Transf (AST/SGOT) 47 U/L Alanine Aminotransferase (ALT/SGPT) 146 U/L Total Bilirubin 0.5 MG/DL Sodium Level 149 MEQ/L Potassium Level 3.8 MEQ/L Chloride Level 114 MEQ/L Carbon Dioxide Level 27.1 MEQ/L Anion Gap 8 MEQ/L Estimat Glomerular Filtration Rate 65 ML/MIN Protein Corrected Calcium 7.6 MG/DL Imaging Last Impressions Lower Extremity Ultrasound 11/03/16 0000 Signed Impressions: Service Date/Time: Thursday, November 03, 2016 15:19 - CONCLUSION: Negative for deep venous thrombosis. Rahat Frey MD FACR Chest X-Ray 11/01/16 0000 Signed Impressions: Service Date/Time: Tuesday, November 01, 2016 13:10 - CONCLUSION: ET and nasogastric in good position. Lungs are clear. Rahat Frey MD FACR Chest CT 11/01/16 0000 Signed Impressions: Service Date/Time: Tuesday, November 01, 2016 15:59 - CONCLUSION: Minimal nonspecific adenopathy the bibasilar parenchymal changes worse on the left. Rahat Frey MD FACR Abdomen/Pelvis CT 11/01/16 0000 Signed Impressions: Service Date/Time: Tuesday, November 01, 2016 16:04 - CONCLUSION: Nonspecific minimal bowel wall thickening transverse colon. There are no ancillary signs of malignancy. Rahat Frey MD FACR Brain MRI 10/31/16 0000 Signed Impressions: Service Date/Time: Monday, October 31, 2016 10:51 - CONCLUSION: 1. Subtle signal abdomen only at the pinto-white junction in the right hemisphere as above. The findings may reflect encephalitis or cerebritis Kranthi Lloyd MD Lumbar Puncture Fluoroscopy 10/26/16 0000 Signed Impressions: Service Date/Time: October 12:24 - CONCLUSION: Uncomplicated fluoroscopically guided cervical puncture. Kranthi Lloyd MD Physical Exam CONSTITUTIONAL/GENERAL: This is an adequately nourished patient, in no apparent distress. TUBES/LINES/DRAINS: SKIN: No jaundice, rashes, or lesions. Skin temperature appropriate. Not diaphoretic. HEAD: Atraumatic. Normocephalic. EYES: Pupils equal and round and reactive. Extraocular motions intact. No scleral icterus. No injection or drainage. Fundi not examined. ENT: Hearing not tested. Nose without bleeding or purulent drainage. Orally intubated NECK: Trachea midline. Supple, nontender. CARDIOVASCULAR: Regular rate and rhythm without murmurs, gallops, or rubs. No JVD. Peripheral pulses symmetric. RESPIRATORY/CHEST: Symmetric, unlabored respirations. Clear to auscultation. Breath sounds equal bilaterally. No wheezes, rales, or rhonchi. GASTROINTESTINAL: Abdomen soft, non-tender, nondistended. No hepato-splenomegaly , or palpable masses. No guarding. Bowel sounds present. Incontinent of liquid brown stool GENITOURINARY: Without palpable bladder distension. Mcdaniel catheter in place with clear yellow urine MUSCULOSKELETAL: Extremities without clubbing, cyanosis, or edema. No mottling or clubbing. LYMPHATICS: No palpable cervical or supraclavicular adenopathy. NEUROLOGICAL: Pt showing no response to any kind of stimulation during sedation vaceation PSYCHIATRIC: unable to assess Assessment & Plan Remarks Cerebritis , encephalitis: infectious vs autoimnnune 14-3-3 PROTEIN,CSF: LESS THAN 2 ng/mL - ASH neg, ESR wnl - MRI cw cerebritis/encephalitis clinicall progression of neurological symptoms HSV negative CSF with nl glc, protein, bordeline moncytic pleocytosis Lymphopenia Progressive thrombocytopenia No unusual animals/insects exposure Rec's: chk HIV LEILANI dc acyclovir consider to repeat MRI dw @ b/s [place] [address], MD Nov 04, 2016 11:15
[2016-11-04] MEDS: FREE WATER OG-TUBE SCH ×2 (12:00→18:00)
[2016-11-04] MEDS: VALPROATE INJ 500 MG in SODIUM CHLORIDE 0.9% INJ 100 ML IV SCH ×2 (12:10→18:31)
[2016-11-04] MEDS: SODIUM CHLOR 0.45% 1000 ML INJ 1,000 ML IV SCH ×2 (12:11→21:15)
--- NOTE | 2016-11-04 13:20 | HHI.NPPN ---
Subjective History of Present Illness 66-year-old male known to me from before with past medical history of hypertension, diabetes mellitus, hyperlipidemia, history of depression, history of rapidly progressive dementia and altered mental status, history of possible chronic kidney disease who was admitted to the medical floor from the Psych department because of worsening mental status. I was called to see the patient because of elevated BUN and creatinine. The patient had elevated creatinine when he was in the Psych department and I saw him there and at that time the impression was that the patient has prerenal azotemia, he was not eating very good and his creatinine improved after he was getting the hydration. His creatinine was 1.7 and it improved to 1.2 to 1.4. Additional Remarks Patient is still intubated and remain unresponsive, off sedation. Review of Systems General General Remarks intubated and sedated. Objective Data Data 11/04/16 11/05/16 19:00 07:00 Intake Total 1260 ml Balance 1260 ml IV Total 1260 ml Vital Signs Date Time Temp Pulse Resp B/P (MAP) Pulse Ox O2 Delivery O2 Flow Rate FiO2 11/04/16 12:13 100 35 11/04/16 12:00 82 11/04/16 12:00 40 11/04/16 12:00 99.1 82 21 125/71 (89) 97 11/04/16 10:00 80 11/04/16 08:37 98 35 11/04/16 08:00 40 11/04/16 08:00 97.9 80 17 133/80 (97) 100 11/04/16 08:00 80 11/04/16 08:00 40 11/04/16 08:00 80 11/04/16 04:30 97 40 11/04/16 04:00 98.9 75 21 127/71 (89) 95 11/04/16 04:00 40 11/04/16 01:21 99 40 11/04/16 00:00 40 11/04/16 00:00 98.9 76 21 101/56 (71) 95 11/03/16 21:17 96 40 11/03/16 20:35 81 18 131/78 11/03/16 20:00 98.9 80 21 130/70 (90) 95 11/03/16 20:00 40 11/03/16 17:30 90 21 132/74 (93) 95 11/03/16 17:15 90 20 133/72 (92) 95 11/03/16 17:00 90 21 132/74 (93) 94 11/03/16 16:45 91 21 134/74 (94) 93 11/03/16 16:30 92 21 136/74 (94) 94 11/03/16 16:15 92 22 134/72 (92) 94 11/03/16 16:00 100.5 94 21 128/70 (89) 94 11/03/16 16:00 40 11/03/16 15:45 94 22 139/79 (99) 94 11/03/16 15:31 94 40 11/03/16 15:30 100 23 141/82 (101) 94 11/03/16 15:15 92 18 144/76 (98) 95 11/03/16 15:00 92 18 139/78 (98) 95 11/03/16 14:45 92 19 144/76 (98) 95 11/03/16 14:30 93 22 144/77 (99) 95 11/03/16 14:15 96 26 147/84 (105) 95 11/03/16 14:00 96 22 145/77 (99) 96 11/03/16 13:45 96 21 142/76 (98) 96 11/03/16 13:30 96 23 146/76 (99) 96 -: 11/04/16 0218 11/04/16 0218 Physical Exam General Appearance Remarks intubated and unresponsive. Eyes Eye Exam: Pupils Equal Neck Neck Exam: Neck Supple Pulmonary Resp Exam: Breath Sounds Equal, No Distress, Rhonchi, Decreased Bases Cardiology CV Exam: Regular Gastrointestinal/Abdomen GI Exam: Soft, Non-Tender, Bowel Sounds Present, Non-Distended Extremeties Extremities Exam: Trace Edema Neurologic Neuro Exam: Sedated Assessment/Plan Assessment Summary: GEOVANY/Acute Renal Failure Problem List: (1) HTN (hypertension) ICD Codes: I10 - Essential (primary) hypertension (2) Diabetes ICD Codes: E11.9 - Type 2 diabetes mellitus without complications Status: Chronic (3) Seizure disorder ICD Codes: G40.909 - Epilepsy, unspecified, not intractable, without status epilepticus Status: Acute (4) Dyslipidemia ICD Codes: E78.5 - Hyperlipidemia, unspecified (5) Rapidly progressive dementia ICD Codes: F03.90 - Unspecified dementia without behavioral disturbance (6) GEOVANY (acute kidney injury) ICD Codes: N17.9 - Acute kidney failure, unspecified Status: Acute Plan Urine Na. was not low. Most likely has pre renal or obs. uropathy. Now with Mcdaniel's catheter. Repeat MRI and EEG done. Neurology following. Na. is improving, now 149. On 1/2 NS and also GT feeding. Seizure activity improved. HIV test as per ID. Continue IVF. Problem Qualifiers (1) HTN (hypertension): Qualified Codes: I10 - Essential (primary) hypertension (2) Diabetes: Madhuri Lott MD Nov 04, 2016 13:20
[2016-11-04] MEDS: PANTOPRAZOLE SODIUM 40 MG VIAL IV PUSH SCH (15:18)
[2016-11-04] MEDS: MIDAZOLAM 100 MG/NS 100 ML DRIP Premix IV PRN (18:46)
--- NOTE | 2016-11-04 19:02 | RADRPT ---
EXAM DATE/TIME: 11/04/2016 18:24 [facility] COMPARISON: No previous studies available for comparison. INDICATIONS : Right arm swelling. MEDICAL HISTORY : Hypercholesterolemia. Osteoarthritis. Gastroesophageal reflux disease. Diabetes. Kidney stone. Hypert ension. Anticoagulant therapy. PTSD. Depression. SURGICAL HISTORY : Tonsillectomy. Umbilical hernia repair. ENCOUNTER: Initial ACUITY: 1 day PAIN SCORE: Non-responsive LOCATION: Right arm. FINDINGS: There is spontaneous flow documented in the brachial, basilic, axillary, and subclavian veins. The v essels are compressible and augmentation response is documented. No filling defects are seen. The f low is phasic with respiration. Direction of flow in the jugular vein is caudal. There is occlusion of the cephalic vein which is noncompressible from the mid upper arm to the mid forearm. CONCLUSION: Occlusion of the cephalic vein. The other veins are patent. Everett Block MD on November 04, 2016 at 18:59 Board Certified Radiologist. This report was verified electronically.
[2016-11-04] MEDS: ACETAMINOPHEN 325 MG TAB Pre-med PO SCH (20:00)
[2016-11-04] MEDS: NS 500 ML Pre-hydration IV SCH (20:00)
[2016-11-04] MEDS: DIPHENHYDRAMINE HCL 25 MG CAP Pre-med PO SCH (20:00)
[2016-11-04] MEDS: D5W as prime bag (IVIG as secondary) IV SCH (21:00)
[2016-11-04] MEDS: IMMUNE GLOBULIN INJ 40 GM in SYRINGE/BAG 1 EA IV SCH (21:28)
[2016-11-05] VITALS (22 sets, daily range): BP systolic 102–142; BP diastolic 58–91; PULSE 71–92; RESP 16–24; TEMP 97.7–99.9; O2SAT 94–100
[2016-11-05] MEDS: methylPREDNISolone SOD SUCC 125 MG/2 ML VIAL IV SCH ×4 (01:47→20:31)
[2016-11-05] MEDS: VALPROATE INJ 500 MG in SODIUM CHLORIDE 0.9% INJ 100 ML IV SCH ×3 (02:07→17:18)
[2016-11-05] MEDS: LACOSAMIDE INJ 100 MG in SODIUM CHLORIDE 0.9% INJ 100 ML IV SCH ×4 (02:07→21:07)
[2016-11-05] MEDS: FREE WATER OG-TUBE SCH ×2 (04:06)
[2016-11-05] MEDS: SODIUM CHLOR 0.45% 1000 ML INJ 1,000 ML IV SCH (04:06)
[2016-11-05] MEDS: INSULIN NovoLIN REGULAR SUPPLEMENTAL SCALE SQ SCH ×6 (04:21→20:00)
[2016-11-05] MEDS: FOSPHENYTOIN SODIUM 100 MG PE/2 ML VIAL IV SCH ×4 (04:23→20:33)
[2016-11-05] MEDS: MIDAZOLAM 100 MG/NS 100 ML DRIP Premix IV PRN ×3 (04:23→21:09)
[2016-11-05 06:13] LABS: AUTOMATED NEUTROPHIL # 8.5 TH/MM3 (1.8-7.7); HEMATOCRIT 30.6 % (39.0-51.0); LYMPH % 3.4 % (9.0-44.0); LYMPHOCYTE # 0.3 TH/MM3 (1.0-4.8); MEAN CELL VOLUME 90.5 FL (80.0-100.0); MEAN CORPUSCULAR HEMOGLOBIN 29.6 PG (27.0-34.0); MEAN CORPUSCULAR HGB CONC 32.7 % (32.0-36.0); MONO % 3.3 % (0.0-8.0); NEUT % 93.3 % (16.0-70.0); PLATELET COUNT 32 TH/MM3 (150-450); RED BLOOD COUNT 3.39 MIL/MM3 (4.50-5.90); RED CELL DISTRIBUTION WIDTH 13.2 % (11.6-17.2); WHITE BLOOD COUNT 9.1 TH/MM3 (4.0-11.0)
[2016-11-05 06:23] LABS: HEMO FLAGS DIFF FINAL
[2016-11-05 06:41] LABS: BICARBONATE 25.4 MEQ/L (21.0-32.0); POTASSIUM 4.1 MEQ/L (3.5-5.1); TOTAL BILIRUBIN ADULT 0.4 MG/DL (0.2-1.0)
[2016-11-05] MEDS: CHLORHEXIDINE 0.12% (ORAL KIT) 15 ML CUP MT SCH ×2 (07:47→20:00)
[2016-11-05] MEDS: INSULIN DETEMIR 100 UNITS/ML VIAL SQ SCH ×3 (07:48→21:00)
[2016-11-05] MEDS: SODIUM CHLORIDE 0.9% FLUSH 10 ML FLUSH IV FLUSH SCH ×2 (07:51→20:31)
[2016-11-05] MEDS ORDERED: CALCIUM GLUCONATE INJ 1 GM in SODIUM CHLORIDE 0.9% INJ 100 ML IV ONE (08:15)
--- NOTE | 2016-11-05 08:20 | HHI.CCPN ---
Subjective Remarks/Hospital Course Hospital Course: This is a 66-year-old man with history of diabetes, hypertension, dyslipidemia who about a month ago started having difficulty with balance with shuffling type of gait and resting tremor along with recent cognitive decline as well. His initial admission was on 10/06/16, as initial workup was negative patient was admitted to psych unit on 10/06/16 for suicidal ideations and altered mental status. He was evaluated by neurology Dr Branham, possibility of Parkinsonian symptoms and vitamin B 12 deficiency was entertained, but there was no improvement with treatment. He was re admitted to hospitalist service with worsening mental status on 10/25/16. Per Dr. Branham, MRI showed possible cerebritis. Differential included Creutzfeldt-Ministerio. But 14-3-3 protein for Creutzfeldt-Ministerio was negative. Currently on acyclovir for possibility of viral cerebritis. EEG done 10/24/16 showed generalized epileptiform activity. Patient was placed on Cerebyx, Keppra. Keppra was DCd due to rash and currently patient is on Cerebyx and Vimpat. Repeat EEGs from 10/31/16 and today shows continued seizure activity/subclinical seizures. Patient continues to be encephalopathic not responding. EEG today shows continued seizure activity indicating status epilepticus. Critical-care medicine was consulted by Dr. Branham today for continuous Versed infusion after intubation I evaluated the patient in ICU. He barely opens his eyes to painful stimuli localizes with right upper extremity withdrawal of any other extremities. Discussed with Dr. Branham multiple times. In his opinion, this appears to be a autoimmune encephalitis less likely to be infectious. Anti-NMDA receptor antibody ordered. Per Dr. Branham D/D possibly paraneoplastic, vasculitic or NMDA- receptor encephalitis. Currently patient is on IV Solu-Medrol and IVIG had been ordered by Dr. Branham. Initiate continuous EEG monitoring. TTP/HUS unlikely, but patient has E Coli UTI, I have asked for peripheral smear review by pathologist Subjective: 11/02: remains encephalopathic, but also very deeply sedated on versed drip. continuous EEG with intermittent sharp spikes that correspond with rhythmic neck movement. neurology adding additional anti-epileptics. peripheral smear without Schistocytes. currently receiving IVIG for possible auto-immune encephalopathy. 11/03 Patient remains sedated and intubated. Afebrile. 11/04 Patient remains intubated and sedated with Versed 10mg/hr. Tmax 100.6 11/05 No events overnight. On Versed drip for sedation, no seizures overnight. Patient is on continuous EEG monitoring. T: 101.0 last night. Objective Vital Signs Date Time Temp Pulse Resp B/P (MAP) Pulse Ox O2 Delivery O2 Flow Rate FiO2 11/05/16 06:00 73 11/05/16 04:55 96 35 11/05/16 04:00 98.5 22 110/63 (79) 11/01/16 08:58 Nasal Cannula 4.00 Intake and Output 11/05/16 11/05/16 11/05/16 07:59 15:59 23:59 Output Total 1400 ml Balance -1400 ml Result Diagram: 11/05/16 0550 11/05/16 0550 Other Results Laboratory Tests Test 11/04/16 17:41 11/05/16 05:50 White Blood Count 9.1 TH/MM3 Red Blood Count 3.39 MIL/MM3 Hemoglobin 10.0 GM/DL Hematocrit 30.6 % Mean Corpuscular Volume 90.5 FL Mean Corpuscular Hemoglobin 29.6 PG Mean Corpuscular Hemoglobin Concent 32.7 % Red Cell Distribution Width 13.2 % Platelet Count 32 TH/MM3 Mean Platelet Volume 9.5 FL Neutrophils (%) (Auto) 93.3 % Lymphocytes (%) (Auto) 3.4 % Monocytes (%) (Auto) 3.3 % Eosinophils (%) (Auto) 0.0 % Basophils (%) (Auto) 0.0 % Neutrophils # (Auto) 8.5 TH/MM3 Lymphocytes # (Auto) 0.3 TH/MM3 Monocytes # (Auto) 0.3 TH/MM3 Eosinophils # (Auto) 0.0 TH/MM3 Basophils # (Auto) 0.0 TH/MM3 CBC Comment DIFF FINAL Differential Comment Blood Urea Nitrogen 40 MG/DL Creatinine 1.16 MG/DL Random Glucose 252 MG/DL Total Protein 6.2 GM/DL Albumin 1.2 GM/DL Calcium Level 6.6 MG/DL Alkaline Phosphatase 64 U/L Aspartate Amino Transf (AST/SGOT) 49 U/L Alanine Aminotransferase (ALT/SGPT) 104 U/L Total Bilirubin 0.4 MG/DL Sodium Level 142 MEQ/L Potassium Level 4.1 MEQ/L Chloride Level 109 MEQ/L Carbon Dioxide Level 25.4 MEQ/L Anion Gap 8 MEQ/L Estimat Glomerular Filtration Rate 63 ML/MIN Protein Corrected Calcium 7.0 MG/DL Phenytoin (Dilantin) Level 7.0 MCG/ML Valproic Acid (Depakene) Level 43 MCG/ML Imaging Last Impressions Upper Extremity Ultrasound 11/04/16 0000 Signed Impressions: Service Date/Time: Friday, November 04, 2016 18:24 - CONCLUSION: Occlusion of the cephalic vein. The other veins are patent. Everett Block MD Lower Extremity Ultrasound 11/03/16 0000 Signed Impressions: Service Date/Time: Thursday, November 03, 2016 15:19 - CONCLUSION: Negative for deep venous thrombosis. Rahat Frey MD FACR Chest X-Ray 11/01/16 0000 Signed Impressions: Service Date/Time: Tuesday, November 01, 2016 13:10 - CONCLUSION: ET and nasogastric in good position. Lungs are clear. Rahat Frey MD FACR Chest CT 11/01/16 0000 Signed Impressions: Service Date/Time: Tuesday, November 01, 2016 15:59 - CONCLUSION: Minimal nonspecific adenopathy the bibasilar parenchymal changes worse on the left. Rahat Frey MD FACR Abdomen/Pelvis CT 11/01/16 0000 Signed Impressions: Service Date/Time: Tuesday, November 01, 2016 16:04 - CONCLUSION: Nonspecific minimal bowel wall thickening transverse colon. There are no ancillary signs of malignancy. Rahat Frey MD FACR Brain MRI 10/31/16 0000 Signed Impressions: Service Date/Time: Monday, October 31, 2016 10:51 - CONCLUSION: 1. Subtle signal abdomen only at the pinto-white junction in the right hemisphere as above. The findings may reflect encephalitis or cerebritis Kranthi Lloyd MD Lumbar Puncture Fluoroscopy 10/26/16 0000 Signed Impressions: Service Date/Time: October 12:24 - CONCLUSION: Uncomplicated fluoroscopically guided cervical puncture. Kranthi Lloyd MD Objective Remarks GENERAL: middle-aged male, lying in bed, intubated, unresponsive and severely encephalopathic SKIN: Warm and dry. No lesions noted. HEENT: Normocephalic. Pupils equal 2 mm nonreactive. Disconjugate gaze CARDIOVASCULAR: Regular rate and rhythm. No murmur appreciated. RESPIRATORY: No accessory muscle use. Clear to auscultation. Breath sounds equal bilaterally. GASTROINTESTINAL: Abdomen soft, non-tender, nondistended. MUSCULOSKELETAL: No obvious deformities. No clubbing or cyanosis. No edema. NEUROLOGICAL: Deeply sedated on versed infusion. Patient is unresponsive. Pupils 2 mm millimeter unreactive with disconjugate gaze. To noxious stimuli there is partial eye opening, localizes with right upper extremity slight withdrawal of the right lower extremity. 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 Monitor levels Dilantin level : 7.0, Depakote level 43 today - Workup negative for infectious encephalitis including CJD - Ongoing workup for autoimmune encephalitis, anti-NMDA receptor antibody pending - Continue acyclovir, - Continue IV Solu-Medrol 125mg IV Q6 and IVIG per Dr. Branham - TTP/HUS unlikely given lack of schistocytes on peripheral smear 11/01 RESP: Acute hypoxic and hypercarbic respiratory failure - Intubated for failure to protect airway from status epilepticus - ACV 16/550/5 40%, and ICU vent bundle - DuoNeb every 6 hours and when necessary - SBT daily as ryland. Check CXR CV: -Monitor HR and BP keep MAP>65mmHg GI: - IV Protonix for GI prophylaxis -Continue tube feeds- Glucerna 1.5 @ 50ml/hr : Acute kidney injury - Monitor renal function, electrolytes replacement as needed -D/C IVF ID: Encephalitis is probably noninfectious E Coli UTI - Panculture today ( Blood, sputum, UA with cx if indicated) - TTP/HUS unlikely given negative peripheral smear for schistocytes -ID is following HEME: - Monitor CBC, CMP, check coags, Fibrinogen level. Heme is following -HIT panel is negative ENDO: Type 2 diabetes - Electrolyte replacement per protocol - On SSI (medium scale), increase Levemir 10 units BID PROPH: - Bilateral lower extremity SCDs. Lovenox on hold for PLT < 50 -US RUE: Occlusion of the cephalic vein. Patient is at high for anticoagulation given thrombocytopenia -US LE b/L: No DVT - IV Protonix LINES: - Utilize peripheral IVs, central line if needed Level 3 Brad Sheridan MD Nov 05, 2016 08:20
--- NOTE | 2016-11-05 08:47 | HHI.PR ---
Addendum to Inpatient Note Additional Information Urine clx with deshpande S E.coli will start levaquine 500 po x 7 days [place] Mackay MD Nov 05, 2016 08:47
[2016-11-05] MEDS: SENNOSIDES SYRUP 8.8 MG/5 ML CUP PO SCH (08:59)
[2016-11-05] MEDS: LACTULOSE SYRUP 20 GM/30 ML CUP PO SCH ×3 (08:59→17:18)
[2016-11-05] MEDS: DOCUSATE SODIUM 100 MG/10 ML UDC PO SCH ×2 (09:00→20:47)
[2016-11-05] MEDS: LEVOFLOXACIN 500 MG TAB PO SCH (09:14)
--- NOTE | 2016-11-05 09:53 | RADRPT ---
EXAM DATE/TIME: 11/05/2016 09:29 [facility] COMPARISON: CHEST SINGLE AP, November 01, 2016, 13:10. INDICATIONS : Short of breath. MEDICAL HISTORY : Diabetes mellitus type I. SURGICAL HISTORY : Umbilical hernia repair. ENCOUNTER: Initial ACUITY: 1 day PAIN SCORE: 0/10 LOCATION: Bilateral chest FINDINGS: Is bandlike atelectasis in the right lung base. Endotracheal tube and enteric tube in satisfactory po sition. EKG leads are noted overlying the chest. No obvious consolidation. CONCLUSION: Interval development of atelectasis right lung base. Lemuel Eastman MD on November 05, 2016 at 9:51 Board Certified Radiologist. This report was verified electronically.
--- NOTE | 2016-11-05 10:19 | HHI.IDPN ---
Subjective Subjective Remarks ID [id number] for Dr Nguyen Chart was reviewed 66 yo male with dizziness, twitching started 6 weeks ago, progressive MS change , seizures Patient is on the vent Has EEG leads in place Febrile overnight up to 101 Has liquid diarrhea, tested negative for c.dff MRI with cerebritis/encephalitis Antibiotics Levaquin for UTI Past Medical History Hypertension Diabetes Dyslipidemia Depression Past Surgical History Umbilical hernia repair Allergies: Coded Allergies: penicillin G (Unverified Allergy, Severe, 10/17/16) Objective . Vital Signs Date Time Temp Pulse Resp B/P (MAP) Pulse Ox O2 Delivery O2 Flow Rate FiO2 11/05/16 08:35 100 35 11/05/16 06:00 73 11/05/16 04:55 96 35 11/05/16 04:00 73 11/05/16 04:00 98.5 74 22 110/63 (79) 94 11/05/16 04:00 40 11/05/16 02:00 90 11/05/16 01:15 96 35 11/05/16 00:00 99.9 90 22 102/62 (75) 94 11/05/16 00:00 90 11/05/16 00:00 40 11/04/16 22:05 92 35 11/04/16 22:00 100 11/04/16 21:28 103 23 104/58 11/04/16 21:00 101.0 108 25 110/60 (77) 93 11/04/16 20:32 94 35 11/04/16 20:00 101.0 111 23 104/66 (79) 95 11/04/16 20:00 109 11/04/16 20:00 40 11/04/16 19:15 101.0 111 23 104/66 (79) 95 11/04/16 18:00 110 11/04/16 16:47 97 35 11/04/16 16:00 99.4 85 19 140/77 (98) 97 11/04/16 16:00 85 11/04/16 16:00 40 11/04/16 14:00 81 11/04/16 12:13 100 35 11/04/16 12:00 82 11/04/16 12:00 40 11/04/16 12:00 99.1 82 21 125/71 (89) 97 . Laboratory Tests Test 11/03/16 12:00 11/04/16 02:18 11/05/16 05:50 White Blood Count 13.1 TH/MM3 12.0 TH/MM3 9.1 TH/MM3 Red Blood Count 3.99 MIL/MM3 3.74 MIL/MM3 3.39 MIL/MM3 Hemoglobin 11.9 GM/DL 10.9 GM/DL 10.0 GM/DL Hematocrit 36.4 % 34.0 % 30.6 % Mean Corpuscular Volume 91.2 FL 91.0 FL 90.5 FL Mean Corpuscular Hemoglobin 29.7 PG 29.2 PG 29.6 PG Mean Corpuscular Hemoglobin Concent 32.6 % 32.1 % 32.7 % Red Cell Distribution Width 13.1 % 13.1 % 13.2 % Platelet Count 54 TH/MM3 46 TH/MM3 32 TH/MM3 Mean Platelet Volume 8.9 FL 8.5 FL 9.5 FL Neutrophils (%) (Auto) 95.8 % 92.3 % 93.3 % Lymphocytes (%) (Auto) 1.1 % 2.8 % 3.4 % Monocytes (%) (Auto) 3.0 % 4.8 % 3.3 % Eosinophils (%) (Auto) 0.0 % 0.0 % 0.0 % Basophils (%) (Auto) 0.1 % 0.1 % 0.0 % Neutrophils # (Auto) 12.6 TH/MM3 11.1 TH/MM3 8.5 TH/MM3 Lymphocytes # (Auto) 0.1 TH/MM3 0.3 TH/MM3 0.3 TH/MM3 Monocytes # (Auto) 0.4 TH/MM3 0.6 TH/MM3 0.3 TH/MM3 Eosinophils # (Auto) 0.0 TH/MM3 0.0 TH/MM3 0.0 TH/MM3 Basophils # (Auto) 0.0 TH/MM3 0.0 TH/MM3 0.0 TH/MM3 CBC Comment AUTO DIFF AUTO DIFF DIFF FINAL Differential Comment AUTO DIFF CONFIRMED AUTO DIFF CONFIRMED Platelet Estimate LOW Platelet Morphology Comment NORMAL Ovalocytes Reticulocyte Count 0.9 % Absolute Reticulocyte Count 37.6 MIL/L Laboratory Tests Test 11/03/16 12:00 11/03/16 18:50 11/04/16 02:18 11/05/16 05:50 Blood Urea Nitrogen 38 MG/DL 36 MG/DL 40 MG/DL Creatinine 1.13 MG/DL 1.12 MG/DL 1.16 MG/DL Random Glucose 227 MG/DL 189 MG/DL 252 MG/DL Total Protein 6.0 GM/DL 5.8 GM/DL 6.2 GM/DL Albumin 1.7 GM/DL 1.5 GM/DL 1.2 GM/DL Calcium Level 7.3 MG/DL 6.9 MG/DL 6.6 MG/DL Phosphorus Level 1.8 MG/DL Magnesium Level 2.4 MG/DL Alkaline Phosphatase 86 U/L 64 U/L 64 U/L Aspartate Amino Transf (AST/SGOT) 66 U/L 47 U/L 49 U/L Alanine Aminotransferase (ALT/SGPT) 205 U/L 146 U/L 104 U/L Total Bilirubin 0.8 MG/DL 0.5 MG/DL 0.4 MG/DL Sodium Level 150 MEQ/L 149 MEQ/L 149 MEQ/L 142 MEQ/L Potassium Level 3.9 MEQ/L 3.8 MEQ/L 4.1 MEQ/L Chloride Level 116 MEQ/L 114 MEQ/L 109 MEQ/L Carbon Dioxide Level 26.7 MEQ/L 27.1 MEQ/L 25.4 MEQ/L Anion Gap 7 MEQ/L 8 MEQ/L 8 MEQ/L Estimat Glomerular Filtration Rate 65 ML/MIN 65 ML/MIN 63 ML/MIN Protein Corrected Calcium 7.9 MG/DL 7.6 MG/DL 7.0 MG/DL Lactate Dehydrogenase 350 U/L Imaging Last Impressions Lower Extremity Ultrasound 11/03/16 0000 Signed Impressions: Service Date/Time: Thursday, November 03, 2016 15:19 - CONCLUSION: Negative for deep venous thrombosis. Rahat Frey MD FACR Chest X-Ray 11/01/16 0000 Signed Impressions: Service Date/Time: Tuesday, November 01, 2016 13:10 - CONCLUSION: ET and nasogastric in good position. Lungs are clear. Rahat Frey MD FACR Chest CT 11/01/16 0000 Signed Impressions: Service Date/Time: Tuesday, November 01, 2016 15:59 - CONCLUSION: Minimal nonspecific adenopathy the bibasilar parenchymal changes worse on the left. Rahat Frey MD FACR Abdomen/Pelvis CT 11/01/16 0000 Signed Impressions: Service Date/Time: Tuesday, November 01, 2016 16:04 - CONCLUSION: Nonspecific minimal bowel wall thickening transverse colon. There are no ancillary signs of malignancy. Rahat Frey MD FACR Brain MRI 10/31/16 0000 Signed Impressions: Service Date/Time: Monday, October 31, 2016 10:51 - CONCLUSION: 1. Subtle signal abdomen only at the pinto-white junction in the right hemisphere as above. The findings may reflect encephalitis or cerebritis Kranthi Lloyd MD Lumbar Puncture Fluoroscopy 10/26/16 0000 Signed Impressions: Service Date/Time: October 12:24 - CONCLUSION: Uncomplicated fluoroscopically guided cervical puncture. Kranthi Lloyd MD Physical Exam CONSTITUTIONAL/GENERAL: On the vent, looks comfortable. SKIN: No jaundice, rashes, or lesions. HEAD: Atraumatic. Normocephalic. EYES: Pupils equal and round and reactive. No scleral icterus. No injection or drainage. Fundi not examined. ENT: Hearing not tested. Nose without bleeding or purulent drainage. Orally intubated NECK: Trachea midline. Supple, nontender. CARDIOVASCULAR: Regular rate and rhythm without murmurs, gallops, or rubs. No JVD. Peripheral pulses symmetric. RESPIRATORY/CHEST: Coarse breath sounds bilaterally GASTROINTESTINAL: Abdomen soft, non-tender, nondistended. No hepato-splenomegaly , or palpable masses. No guarding. Bowel sounds present. Incontinent of liquid brown stool GENITOURINARY: Mcdaniel catheter in place with clear yellow urine MUSCULOSKELETAL: Extremities without clubbing, cyanosis, or edema. No mottling or clubbing. NEUROLOGICAL: Sedated PSYCHIATRIC: unable to assess Assessment & Plan Remarks Cerebritis , encephalitis: infectious vs autoimnnune 14-3-3 PROTEIN,CSF: LESS THAN 2 ng/mL - ASH neg, ESR wnl - MRI cw cerebritis/encephalitis clinicall progression of neurological symptoms HSV negative CSF with nl glc, protein, bordeline moncytic pleocytosis Lymphopenia Progressive thrombocytopenia No unusual animals/insects exposure Respiratory failure UTI fevers RECS: Continue levaquin Repeat 2 BC Follow temps Monitor progress Await HIV test Consider repeat MRI Shannan Salvador MD Nov 05, 2016 10:18
[2016-11-05] MEDS: RESP: ALBUTEROL 2.5 MG/IPRATROPIUM 0.5 MG NEB (SCH) NEB ×3 (10:48→20:56)
--- NOTE | 2016-11-05 14:50 | HHI.NPPN ---
Subjective History of Present Illness 66-year-old male known to me from before with past medical history of hypertension, diabetes mellitus, hyperlipidemia, history of depression, history of rapidly progressive dementia and altered mental status, history of possible chronic kidney disease who was admitted to the medical floor from the Psych department because of worsening mental status. I was called to see the patient because of elevated BUN and creatinine. The patient had elevated creatinine when he was in the Psych department and I saw him there and at that time the impression was that the patient has prerenal azotemia, he was not eating very good and his creatinine improved after he was getting the hydration. His creatinine was 1.7 and it improved to 1.2 to 1.4. Additional Remarks Patient is still intubated and remain unresponsive, clinically same. Review of Systems General General Remarks intubated and sedated. Objective Data Data 11/05/16 11/06/16 19:00 07:00 Intake Total 110 ml Balance 110 ml IV Total 110 ml Vital Signs Date Time Temp Pulse Resp B/P (MAP) Pulse Ox O2 Delivery O2 Flow Rate FiO2 11/05/16 14:00 82 11/05/16 12:00 81 11/05/16 12:00 35 11/05/16 12:00 97.9 83 18 133/74 (93) 97 11/05/16 11:31 99 Ventilator 11/05/16 11:28 100 35 11/05/16 10:00 78 11/05/16 08:35 100 35 11/05/16 08:00 35 11/05/16 08:00 71 11/05/16 08:00 97.9 71 17 140/74 (96) 100 11/05/16 06:00 73 11/05/16 04:55 96 35 11/05/16 04:00 73 11/05/16 04:00 98.5 74 22 110/63 (79) 94 11/05/16 04:00 40 11/05/16 02:00 90 11/05/16 01:15 96 35 11/05/16 00:00 99.9 90 22 102/62 (75) 94 11/05/16 00:00 90 11/05/16 00:00 40 11/04/16 22:05 92 35 11/04/16 22:00 100 11/04/16 21:28 103 23 104/58 11/04/16 21:00 101.0 108 25 110/60 (77) 93 11/04/16 20:32 94 35 11/04/16 20:00 101.0 111 23 104/66 (79) 95 11/04/16 20:00 109 11/04/16 20:00 40 11/04/16 19:15 101.0 111 23 104/66 (79) 95 11/04/16 18:00 110 11/04/16 16:47 97 35 11/04/16 16:00 99.4 85 19 140/77 (98) 97 11/04/16 16:00 85 11/04/16 16:00 40 -: 11/05/16 0550 11/05/16 0550 Microbiology 11/05/16 Gram Stain, Received Pending 11/05/16 Sputum Culture, Received Pending Physical Exam General Appearance Remarks intubated and unresponsive. Eyes Eye Exam: Pupils Equal Neck Neck Exam: Neck Supple Pulmonary Resp Exam: Breath Sounds Equal, No Distress, Rhonchi, Decreased Bases Cardiology CV Exam: Regular Gastrointestinal/Abdomen GI Exam: Soft, Non-Tender, Bowel Sounds Present, Non-Distended Extremeties Extremities Exam: Trace Edema Neurologic Neuro Exam: Sedated Assessment/Plan Assessment Summary: GEOVANY/Acute Renal Failure Problem List: (1) HTN (hypertension) ICD Codes: I10 - Essential (primary) hypertension (2) Diabetes ICD Codes: E11.9 - Type 2 diabetes mellitus without complications Status: Chronic (3) Seizure disorder ICD Codes: G40.909 - Epilepsy, unspecified, not intractable, without status epilepticus Status: Acute (4) Dyslipidemia ICD Codes: E78.5 - Hyperlipidemia, unspecified (5) Rapidly progressive dementia ICD Codes: F03.90 - Unspecified dementia without behavioral disturbance (6) GEOVANY (acute kidney injury) ICD Codes: N17.9 - Acute kidney failure, unspecified Status: Acute Plan Urine Na. was not low. Most likely has pre renal or obs. uropathy. Now with Mcdaniel's catheter. Repeat MRI and EEG done. Neurology following. Na. improved. On 03/06 NS and also GT feeding. Seizure activity improved. HIV test as per ID. Tolerating GT feeding. I will see PRN as needed. Problem Qualifiers (1) HTN (hypertension): Qualified Codes: I10 - Essential (primary) hypertension (2) Diabetes: Jumani,Nataliia Q. MD Nov 05, 2016 14:50
[2016-11-05] MEDS: PANTOPRAZOLE SODIUM 40 MG VIAL IV PUSH SCH (15:04)
[2016-11-05] MEDS: cloNIDine HCL 0.1 MG/24 HR PATCH T-DERMAL SCH (15:07)
[2016-11-05] MEDS: [UNRECOGNIZED DRUG - OTHER] T-DERMAL SCH (15:07)
[2016-11-05 15:56] LABS: APTT (PATIENT) 26.4 SEC (24.3-30.1); INTERNATIONAL NORMALIZED RATIO 1.1 RATIO; PROTHROMBIN TIME - PATIENT 11.9 SEC (9.8-11.6)
[2016-11-05] MEDS: NS 500 ML Pre-hydration IV SCH (19:48)
[2016-11-05] MEDS: ACETAMINOPHEN 325 MG TAB Pre-med PO SCH (20:31)
[2016-11-05] MEDS: DIPHENHYDRAMINE HCL 25 MG CAP Pre-med PO SCH (20:31)
[2016-11-05] MEDS: D5W as prime bag (IVIG as secondary) IV SCH (21:00)
[2016-11-05] MEDS: IMMUNE GLOBULIN INJ 40 GM in SYRINGE/BAG 1 EA IV SCH (21:08)
[2016-11-05] MEDS: fentaNYL DRIP 250 ML IV PRN (22:23)
[2016-11-06] VITALS (18 sets, daily range): BP systolic 98–119; BP diastolic 58–66; PULSE 75–85; RESP 16–18; TEMP 98.8–99.4; O2SAT 92–98
[2016-11-06] MEDS: VALPROATE INJ 500 MG in SODIUM CHLORIDE 0.9% INJ 100 ML IV SCH ×3 (02:08→18:53)
[2016-11-06] MEDS: FOSPHENYTOIN SODIUM 100 MG PE/2 ML VIAL IV SCH ×4 (02:08→20:54)
[2016-11-06] MEDS: methylPREDNISolone SOD SUCC 125 MG/2 ML VIAL IV SCH ×4 (02:08→20:53)
[2016-11-06] MEDS: LACOSAMIDE INJ 100 MG in SODIUM CHLORIDE 0.9% INJ 100 ML IV SCH ×4 (02:08→20:53)
[2016-11-06] MEDS: MIDAZOLAM 100 MG/NS 100 ML DRIP Premix IV PRN ×3 (02:09→20:28)
[2016-11-06] MEDS: INSULIN NovoLIN REGULAR SUPPLEMENTAL SCALE SQ SCH ×7 (03:01→23:25)
[2016-11-06] MEDS: RESP: ALBUTEROL 2.5 MG/IPRATROPIUM 0.5 MG NEB (SCH) NEB ×4 (03:30→20:15)
[2016-11-06 05:18] LABS: BACTERIA, URINE RARE /hpf; BLOOD, URINE SMALL (NEG); COMMENT (UR) CATH-CULTURE IND; CULTURE IF INDICATED CATH CULTURE IND; GLUCOSE,URINE 300 mg/dL (NEG); HYALINE CAST, URINE 1 /lpf (RARE); KETONE, URINE 10 mg/dL (NEG); MUCUS URINE FEW /lpf (OCC); NITRITE,URINE NEG (NEG); PH, URINE 5.5 (5.0-8.5); RENAL EPITHELIAL CELLS <1 /hpf; SQUAMOUS EPITHELIAL CELL URINE <1 /hpf (0-5); URINE COLOR YELLOW (YELLW/STRAW)
[2016-11-06 06:07] LABS: BLOOD GAS BASE EXCESS -0.9 mmol/L (-2-2); BLOOD GAS CARBOXYHEMOGLOBIN 1.3 % (0-4); BLOOD GAS HCO3 23 mmol/L (22-26); BLOOD GAS O2 HGB SATURATION 94 % (90-100); BLOOD GAS OXYGEN CONTENT 13.4 Vol % (12.0-20.0); BLOOD GAS PCO2 39 mmHg (38-42); BLOOD GAS PO2 86 mmHg (61-120); CRITICAL VALUE NO; OXYGEN DEVICE VENTILATOR; TEMP CORR TO 98.6
[2016-11-06 06:08] LABS: DRAW SITE RT RADIAL; FIO2 35 %; NUMBER OF ARTERIAL PUNCTURES 1; STAT NO; ULNAR PULSE PRESENT; VENT SETTINGS PRVC/AC
[2016-11-06 06:27] LABS: AUTOMATED NEUTROPHIL # 7.6 TH/MM3 (1.8-7.7); BASOPHIL % 0.1 % (0.0-2.0); HEMATOCRIT 27.7 % (39.0-51.0); LYMPHOCYTE # 0.2 TH/MM3 (1.0-4.8); MEAN CELL VOLUME 89.8 FL (80.0-100.0); MEAN CORPUSCULAR HEMOGLOBIN 30.4 PG (27.0-34.0); MEAN CORPUSCULAR HGB CONC 33.9 % (32.0-36.0); MONO % 4.5 % (0.0-8.0); NEUT % 92.4 % (16.0-70.0); PLATELET COUNT 37 TH/MM3 (150-450); RED BLOOD COUNT 3.09 MIL/MM3 (4.50-5.90); RED CELL DISTRIBUTION WIDTH 12.9 % (11.6-17.2); WHITE BLOOD COUNT 8.2 TH/MM3 (4.0-11.0)
[2016-11-06 06:38] LABS: HEMO FLAGS AUTO DIFF
[2016-11-06 06:50] LABS: BICARBONATE 25.3 MEQ/L (21.0-32.0); CALCIUM-PROTEIN CORRECTED 7.7 MG/DL (8.5-10.1); POTASSIUM 4.1 MEQ/L (3.5-5.1); TOTAL BILIRUBIN ADULT 0.4 MG/DL (0.2-1.0)
[2016-11-06] MEDS: fentaNYL DRIP 250 ML IV PRN ×2 (07:30→20:28)
--- NOTE | 2016-11-06 08:06 | HHI.CCPN ---
Subjective Remarks/Hospital Course Hospital Course: This is a 66-year-old man with history of diabetes, hypertension, dyslipidemia who about a month ago started having difficulty with balance with shuffling type of gait and resting tremor along with recent cognitive decline as well. His initial admission was on 10/06/16, as initial workup was negative patient was admitted to psych unit on 10/06/16 for suicidal ideations and altered mental status. He was evaluated by neurology Dr Branham, possibility of Parkinsonian symptoms and vitamin B 12 deficiency was entertained, but there was no improvement with treatment. He was re admitted to hospitalist service with worsening mental status on 10/25/16. Per Dr. Branham, MRI showed possible cerebritis. Differential included Creutzfeldt-Ministerio. But 14-3-3 protein for Creutzfeldt-Ministerio was negative. Currently on acyclovir for possibility of viral cerebritis. EEG done 10/24/16 showed generalized epileptiform activity. Patient was placed on Cerebyx, Keppra. Keppra was DCd due to rash and currently patient is on Cerebyx and Vimpat. Repeat EEGs from 10/31/16 and today shows continued seizure activity/subclinical seizures. Patient continues to be encephalopathic not responding. EEG today shows continued seizure activity indicating status epilepticus. Critical-care medicine was consulted by Dr. Branham today for continuous Versed infusion after intubation I evaluated the patient in ICU. He barely opens his eyes to painful stimuli localizes with right upper extremity withdrawal of any other extremities. Discussed with Dr. Branham multiple times. In his opinion, this appears to be a autoimmune encephalitis less likely to be infectious. Anti-NMDA receptor antibody ordered. Per Dr. Branham D/D possibly paraneoplastic, vasculitic or NMDA- receptor encephalitis. Currently patient is on IV Solu-Medrol and IVIG had been ordered by Dr. Branham. Initiate continuous EEG monitoring. TTP/HUS unlikely, but patient has E Coli UTI, I have asked for peripheral smear review by pathologist Subjective: 11/02: remains encephalopathic, but also very deeply sedated on versed drip. continuous EEG with intermittent sharp spikes that correspond with rhythmic neck movement. neurology adding additional anti-epileptics. peripheral smear without Schistocytes. currently receiving IVIG for possible auto-immune encephalopathy. 11/03 Patient remains sedated and intubated. Afebrile. 11/04 Patient remains intubated and sedated with Versed 10mg/hr. Tmax 100.6 11/05 No events overnight. On Versed drip for sedation, no seizures overnight. Patient is on continuous EEG monitoring. T: 101.0 last night. 11/06 Patient is sedated with Versed and Fentanyl. No seizures overnight. Afebrile. Objective Vital Signs Date Time Temp Pulse Resp B/P (MAP) Pulse Ox O2 Delivery O2 Flow Rate FiO2 11/06/16 06:00 75 11/06/16 04:30 97 35 11/06/16 04:00 99.3 16 98/60 (73) 11/05/16 11:31 Ventilator Intake and Output 11/06/16 11/06/16 11/07/16 08:00 16:00 00:00 Intake Total 3088 ml Output Total 1000 ml Balance 2088 ml Result Diagram: 11/06/16 0553 11/06/16 0553 Other Results Laboratory Tests Test 11/05/16 14:35 11/06/16 03:00 11/06/16 05:39 11/06/16 05:53 Prothrombin Time 11.9 SEC Prothromb Time International Ratio 1.1 RATIO Activated Partial Thromboplast Time 26.4 SEC Fibrinogen 365 mg/dL Urine Color YELLOW Urine Turbidity HAZY Urine pH 5.5 Urine Specific [place] 1.028 Urine Protein 30 mg/dL Urine Glucose (UA) 300 mg/dL Urine Ketones 10 mg/dL Urine Occult Blood SMALL Urine Nitrite NEG Urine Bilirubin NEG Urine Urobilinogen 2.0 MG/DL Urine Leukocyte Esterase LARGE Urine RBC 13 /hpf Urine WBC 76 /hpf Urine WBC Clumps FEW Urine Squamous Epithelial Cells <1 /hpf Urine Renal Epithelial Cells <1 /hpf Urine Bacteria RARE /hpf Urine Hyaline Casts 1 /lpf Urine Mucus FEW /lpf Microscopic Urinalysis Comment CATH-CULTURE IND Blood Gas Puncture Site RT RADIAL Blood Gas Patient Temperature 98.6 Blood Gas HCO3 23 mmol/L Blood Gas Base Excess -0.9 mmol/L Blood Gas Oxygen Saturation 94 % Arterial Blood pH 7.40 Arterial Blood Partial Pressure CO2 39 mmHg Arterial Blood Partial Pressure O2 86 mmHg Arterial Blood Oxygen Content 13.4 Vol % Arterial Blood Carboxyhemoglobin 1.3 % Arterial Blood Methemoglobin 1.0 % Blood Gas Hemoglobin 10.0 G/DL Oxygen Delivery Device VENTILATOR Blood Gas Ventilator Setting PRVC/AC Blood Gas Inspired Oxygen 35 % White Blood Count 8.2 TH/MM3 Red Blood Count 3.09 MIL/MM3 Hemoglobin 9.4 GM/DL Hematocrit 27.7 % Mean Corpuscular Volume 89.8 FL Mean Corpuscular Hemoglobin 30.4 PG Mean Corpuscular Hemoglobin Concent 33.9 % Red Cell Distribution Width 12.9 % Platelet Count 37 TH/MM3 Mean Platelet Volume 10.1 FL Neutrophils (%) (Auto) 92.4 % Lymphocytes (%) (Auto) 3.0 % Monocytes (%) (Auto) 4.5 % Eosinophils (%) (Auto) 0.0 % Basophils (%) (Auto) 0.1 % Neutrophils # (Auto) 7.6 TH/MM3 Lymphocytes # (Auto) 0.2 TH/MM3 Monocytes # (Auto) 0.4 TH/MM3 Eosinophils # (Auto) 0.0 TH/MM3 Basophils # (Auto) 0.0 TH/MM3 CBC Comment AUTO DIFF Blood Urea Nitrogen 38 MG/DL Creatinine 1.09 MG/DL Random Glucose 247 MG/DL Total Protein 6.2 GM/DL Albumin 1.1 GM/DL Calcium Level 7.2 MG/DL Alkaline Phosphatase 60 U/L Aspartate Amino Transf (AST/SGOT) 40 U/L Alanine Aminotransferase (ALT/SGPT) 80 U/L Total Bilirubin 0.4 MG/DL Sodium Level 139 MEQ/L Potassium Level 4.1 MEQ/L Chloride Level 107 MEQ/L Carbon Dioxide Level 25.3 MEQ/L Anion Gap 7 MEQ/L Estimat Glomerular Filtration Rate 67 ML/MIN Protein Corrected Calcium 7.7 MG/DL Imaging Last Impressions Chest X-Ray 11/05/16 0000 Signed Impressions: Service Date/Time: Saturday, November 05, 2016 09:29 - CONCLUSION: Interval development of atelectasis right lung base. Lemuel Eastman MD Upper Extremity Ultrasound 11/04/16 0000 Signed Impressions: Service Date/Time: Friday, November 04, 2016 18:24 - CONCLUSION: Occlusion of the cephalic vein. The other veins are patent. Everett Block MD Lower Extremity Ultrasound 11/03/16 0000 Signed Impressions: Service Date/Time: Thursday, November 03, 2016 15:19 - CONCLUSION: Negative for deep venous thrombosis. Rahat Frey MD FACR Chest CT 11/01/16 0000 Signed Impressions: Service Date/Time: Tuesday, November 01, 2016 15:59 - CONCLUSION: Minimal nonspecific adenopathy the bibasilar parenchymal changes worse on the left. Rahat Frey MD FACR Abdomen/Pelvis CT 11/01/16 0000 Signed Impressions: Service Date/Time: Tuesday, November 01, 2016 16:04 - CONCLUSION: Nonspecific minimal bowel wall thickening transverse colon. There are no ancillary signs of malignancy. Rahat Frey MD FACR Brain MRI 10/31/16 0000 Signed Impressions: Service Date/Time: Monday, October 31, 2016 10:51 - CONCLUSION: 1. Subtle signal abdomen only at the pinto-white junction in the right hemisphere as above. The findings may reflect encephalitis or cerebritis Kranthi Lloyd MD Lumbar Puncture Fluoroscopy 10/26/16 0000 Signed Impressions: Service Date/Time: October 12:24 - CONCLUSION: Uncomplicated fluoroscopically guided cervical puncture. Kranthi Lloyd MD Objective Remarks GENERAL: middle-aged male, lying in bed, intubated, unresponsive and severely encephalopathic SKIN: Warm and dry. No lesions noted. HEENT: Normocephalic. Pupils equal 2 mm nonreactive. Disconjugate gaze CARDIOVASCULAR: Regular rate and rhythm. No murmur appreciated. RESPIRATORY: No accessory muscle use. Clear to auscultation. Breath sounds equal bilaterally. GASTROINTESTINAL: Abdomen soft, non-tender, nondistended. MUSCULOSKELETAL: No obvious deformities. No clubbing or cyanosis. No edema. NEUROLOGICAL: Deeply sedated on versed infusion. Patient is unresponsive. Pupils 2 mm millimeter unreactive with disconjugate gaze. To noxious stimuli there is partial eye opening, localizes with right upper extremity slight withdrawal of the right lower extremity. 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 Monitor levels Dilantin level : 7.0, Depakote level 43 9/3 - Workup negative for infectious encephalitis including CJD - Ongoing workup for autoimmune encephalitis, anti-NMDA receptor antibody pending - Continue acyclovir, - Continue IV Solu-Medrol 125mg IV Q6 and IVIG per Dr. Branham - TTP/HUS unlikely given lack of schistocytes on peripheral smear 11/01 RESP: Acute hypoxic and hypercarbic respiratory failure - Intubated for failure to protect airway from status epilepticus - ACV 16/550/5 40%, and ICU vent bundle - DuoNeb every 6 hours and when necessary - SBT daily as ryland. -CXR 11/05: Atelectasis right lung base CV: -Monitor HR and BP keep MAP>65mmHg GI: - IV Protonix for GI prophylaxis -Continue tube feeds- Glucerna 1.5 @ 50ml/hr : Acute kidney injury - Monitor renal function, electrolytes replacement as needed ID: Encephalitis is probably noninfectious E Coli UTI Continue with abx ( Levaquin) ID is following monitor for isgns of infections ( Fever, WBC) - Follow up on Blood,sputum from 11/05 -Urine cx 11/06: pending - TTP/HUS unlikely given negative peripheral smear for schistocytes -ID is following HEME: - Monitor CBC, CMP, coags, Fibrinogen level 365 11/05, Heme is following -HIT panel is negative ENDO: Type 2 diabetes - Electrolyte replacement per protocol - On SSI (medium scale), increase Levemir 14 units BID PROPH: - Bilateral lower extremity SCDs. Lovenox on hold for PLT < 50 -US RUE: Occlusion of the cephalic vein. Patient is at high for anticoagulation given thrombocytopenia -US LE b/L: No DVT - IV Protonix LINES: - Utilize peripheral IVs Level 3 Brad Sheridan MD Nov 06, 2016 08:06
[2016-11-06] MEDS: CHLORHEXIDINE 0.12% (ORAL KIT) 15 ML CUP MT SCH ×2 (08:21→20:00)
[2016-11-06] MEDS: SODIUM CHLORIDE 0.9% FLUSH 10 ML FLUSH IV FLUSH SCH ×2 (08:23→20:54)
[2016-11-06] MEDS: SENNOSIDES SYRUP 8.8 MG/5 ML CUP PO SCH (08:24)
[2016-11-06] MEDS: DOCUSATE SODIUM 100 MG/10 ML UDC PO SCH ×2 (08:24→20:27)
[2016-11-06] MEDS: LEVOFLOXACIN 500 MG TAB PO SCH (08:24)
[2016-11-06] MEDS: LACTULOSE SYRUP 20 GM/30 ML CUP PO SCH ×3 (08:24→17:44)
[2016-11-06 09:14] LABS: PLATELET ESTIMATE SMEAR LOW (NORMAL); PLATELET MORPHOLOGY NORMAL (NORMAL); SCAN/DIFF AUTO DIFF CONFIRMED
[2016-11-06] MEDS: INSULIN DETEMIR 100 UNITS/ML VIAL SQ SCH ×2 (09:27→21:00)
--- NOTE | 2016-11-06 11:14 | PD.ONC.PN ---
Subjective Subjective Remarks at bedside concern about taper sedation. Concern about seizures recurring. Noted UE superficial thrombosis. Mild arm swelling. Objective Data Date Time Temp Pulse Resp B/P (MAP) Pulse Ox O2 Delivery O2 Flow Rate FiO2 11/06/16 08:04 98 35 11/06/16 06:00 75 11/06/16 04:30 97 35 11/06/16 04:00 79 11/06/16 04:00 99.3 79 16 98/60 (73) 92 11/06/16 04:00 35 11/06/16 02:00 77 11/06/16 01:07 98 35 11/06/16 00:00 99.2 85 17 119/66 (83) 95 11/06/16 00:00 35 11/06/16 00:00 85 11/05/16 22:12 100 35 11/05/16 22:00 92 11/05/16 22:00 99.2 88 24 112/80 (91) 94 11/05/16 21:50 99.6 89 24 110/91 (97) 95 11/05/16 21:30 99.6 90 16 104/58 (73) 96 11/05/16 21:08 90 22 131/79 11/05/16 20:00 87 11/05/16 20:00 35 11/05/16 20:00 98.3 87 24 140/84 (102) 94 11/05/16 19:47 98 35 11/05/16 18:00 87 11/05/16 16:00 97.7 84 19 142/85 (104) 99 11/05/16 16:00 89 11/05/16 16:00 35 11/05/16 15:46 100 35 11/05/16 14:00 82 11/05/16 12:00 81 11/05/16 12:00 35 11/05/16 12:00 97.9 83 18 133/74 (93) 97 11/05/16 11:31 99 Ventilator 11/05/16 11:28 100 35 11/06/16 11/06/16 11/06/16 07:00 15:00 23:00 Intake Total 3088 ml Output Total 1000 ml Balance 2088 ml Result Diagram: 11/06/16 0553 11/06/16 0553 Laboratory Results Laboratory Tests Test 11/05/16 14:35 11/06/16 03:00 11/06/16 05:39 11/06/16 05:53 Prothrombin Time 11.9 SEC Prothromb Time International Ratio 1.1 RATIO Activated Partial Thromboplast Time 26.4 SEC Fibrinogen 365 mg/dL Urine Color YELLOW Urine Turbidity HAZY Urine pH 5.5 Urine Specific [place] 1.028 Urine Protein 30 mg/dL Urine Glucose (UA) 300 mg/dL Urine Ketones 10 mg/dL Urine Occult Blood SMALL Urine Nitrite NEG Urine Bilirubin NEG Urine Urobilinogen 2.0 MG/DL Urine Leukocyte Esterase LARGE Urine RBC 13 /hpf Urine WBC 76 /hpf Urine WBC Clumps FEW Urine Squamous Epithelial Cells <1 /hpf Urine Renal Epithelial Cells <1 /hpf Urine Bacteria RARE /hpf Urine Hyaline Casts 1 /lpf Urine Mucus FEW /lpf Microscopic Urinalysis Comment CATH-CULTURE IND Blood Gas Puncture Site RT RADIAL Blood Gas Patient Temperature 98.6 Blood Gas HCO3 23 mmol/L Blood Gas Base Excess -0.9 mmol/L Blood Gas Oxygen Saturation 94 % Arterial Blood pH 7.40 Arterial Blood Partial Pressure CO2 39 mmHg Arterial Blood Partial Pressure O2 86 mmHg Arterial Blood Oxygen Content 13.4 Vol % Arterial Blood Carboxyhemoglobin 1.3 % Arterial Blood Methemoglobin 1.0 % Blood Gas Hemoglobin 10.0 G/DL Oxygen Delivery Device VENTILATOR Blood Gas Ventilator Setting PRVC/AC Blood Gas Inspired Oxygen 35 % White Blood Count 8.2 TH/MM3 Red Blood Count 3.09 MIL/MM3 Hemoglobin 9.4 GM/DL Hematocrit 27.7 % Mean Corpuscular Volume 89.8 FL Mean Corpuscular Hemoglobin 30.4 PG Mean Corpuscular Hemoglobin Concent 33.9 % Red Cell Distribution Width 12.9 % Platelet Count 37 TH/MM3 Mean Platelet Volume 10.1 FL Neutrophils (%) (Auto) 92.4 % Lymphocytes (%) (Auto) 3.0 % Monocytes (%) (Auto) 4.5 % Eosinophils (%) (Auto) 0.0 % Basophils (%) (Auto) 0.1 % Neutrophils # (Auto) 7.6 TH/MM3 Lymphocytes # (Auto) 0.2 TH/MM3 Monocytes # (Auto) 0.4 TH/MM3 Eosinophils # (Auto) 0.0 TH/MM3 Basophils # (Auto) 0.0 TH/MM3 CBC Comment AUTO DIFF Differential Comment AUTO DIFF CONFIRMED Platelet Estimate LOW Platelet Morphology Comment NORMAL Blood Urea Nitrogen 38 MG/DL Creatinine 1.09 MG/DL Random Glucose 247 MG/DL Total Protein 6.2 GM/DL Albumin 1.1 GM/DL Calcium Level 7.2 MG/DL Alkaline Phosphatase 60 U/L Aspartate Amino Transf (AST/SGOT) 40 U/L Alanine Aminotransferase (ALT/SGPT) 80 U/L Total Bilirubin 0.4 MG/DL Sodium Level 139 MEQ/L Potassium Level 4.1 MEQ/L Chloride Level 107 MEQ/L Carbon Dioxide Level 25.3 MEQ/L Anion Gap 7 MEQ/L Estimat Glomerular Filtration Rate 67 ML/MIN Protein Corrected Calcium 7.7 MG/DL Culture Results Microbiology Date/Time Source Procedure Growth Status 11/05/16 14:45 Blood Peripheral Aerobic Blood Culture - Preliminary NO GROWTH IN 1 DAY Resulted 11/05/16 14:45 Blood Peripheral Anaerobic Blood Culture - Preliminary NO GROWTH IN 1 DAY Resulted 11/05/16 14:35 Blood Peripheral Aerobic Blood Culture - Preliminary NO GROWTH IN 1 DAY Resulted 11/05/16 14:35 Blood Peripheral Anaerobic Blood Culture - Preliminary NO GROWTH IN 1 DAY Resulted 11/05/16 09:15 Sputum Endotracheal Gram Stain - Final Resulted 11/05/16 09:15 Sputum Endotracheal Sputum Culture Pending Resulted 11/06/16 03:00 Urine Catheterized Urine Urine Culture Pending Received Administered Medications Medications (Trade) Dose Ordered Sig/Alyssa Route PRN Reason Start Time Stop Time Status Last Admin Dose Admin Sodium Chloride (NS Flush) 2 ml BID IV FLUSH 10/25/16 09:00 11/06/16 08:23 Lorazepam (Ativan Inj) 1 mg Q6H PRN IV AGITATION 10/26/16 21:30 11/04/16 16:45 Enalaprilat (Vasotec Inj) 1.25 mg Q6H PRN IV PUSH SBP > 170 10/26/16 21:30 10/27/16 13:35 Clonidine (Catapres-Tts 0.1mg Patch.7d) 1 patch Q7D T-DERMAL 10/29/16 16:00 11/05/16 15:07 Miscellaneous Information 1 Q7D T-DERMAL 11/05/16 16:00 11/05/16 15:07 Lacosamide 100 mg/ Sodium Chloride 110 ml @ 110 mls/hr Q6H IV 11/01/16 15:00 11/06/16 08:44 Fosphenytoin Sodium (Cerebyx Inj) 100 mgpe Q6HR NEB IV 11/01/16 16:00 11/06/16 10:53 Chlorhexidine Gluconate (Peridex 0.12% Liq) 15 ml BID@08,20 MT 11/01/16 20:00 11/06/16 08:21 Midazolam HCl 100 ml @ 2 mls/hr TITRATE PRN IV SEDATION 11/01/16 12:30 11/06/16 02:09 Albuterol/ Ipratropium (Duoneb Neb) 1 ampule Q6HR NEB PRN NEB SHORTNESS OF BREATH 11/01/16 13:45 11/04/16 20:39 Docusate Sodium (Colace Liq) 100 mg Q12HR PO 11/01/16 21:00 11/06/16 08:24 Pantoprazole Sodium (Protonix Inj) 40 mg Q24H IV PUSH 11/01/16 16:00 11/05/16 15:04 Enoxaparin Sodium (Lovenox Inj) 40 mg Q24H SQ 11/02/16 09:00 Future Hold 11/04/16 08:52 Valproate Sodium 500 mg/Sodium Chloride 105 ml @ 105 mls/hr Q8H IV 11/02/16 11:00 11/06/16 02:08 Insulin Human Regular (NovoLIN R SUPPLEMENTAL SCALE) 1 Q4HR SQ 11/03/16 12:00 11/06/16 08:00 Methylprednisolone Sodium Succinate (SoluMEDROL INJ) 125 mg Q6H IV 11/03/16 20:00 11/06/16 08:20 Sodium Chloride 500 ml @ 500 mls/hr Q24H IV 11/03/16 20:00 11/07/16 20:59 11/05/16 19:48 Immune Globulin 40 gm/Syringe / Bag 400 ml @ 28.89 mls/ hr Q24H IV 11/03/16 21:00 11/08/16 10:51 11/05/16 21:08 Acetaminophen (Tylenol) 650 mg Q24H PO 11/03/16 20:00 11/07/16 20:01 11/05/16 20:31 Diphenhydramine HCl (Benadryl) 25 mg Q24H PO 11/03/16 20:00 11/07/16 20:01 11/05/16 20:31 Dextrose 500 ml @ 30 mls/hr Q24H IV 11/03/16 21:00 11/08/16 13:39 11/05/16 21:00 Albuterol/ Ipratropium (Duoneb Neb) 1 ampule Q6HR NEB NEB 11/05/16 10:00 11/06/16 08:03 Sennosides (Senna Liq) 8.8 mg DAILY PO 11/05/16 09:00 11/06/16 08:24 Lactulose (Lactulose Liq) 15 ml TID PO 11/05/16 09:00 11/06/16 08:24 Levofloxacin (Levaquin) 500 mg DAILY PO 11/05/16 09:00 11/06/16 08:24 Fentanyl Citrate 250 ml @ 5 mls/hr TITRATE PRN IV SEDATION 11/05/16 22:15 11/06/16 07:30 Insulin Detemir (Levemir Inj) 14 units Q12HR SQ 11/06/16 09:00 11/06/16 09:27 Objective Remarks GENERAL: Intubated, sedated male, supine in bed. SKIN: Warm and dry. HEAD: Normocephalic. EYES: No injection or drainage. NECK: Supple, trachea midline. CARDIOVASCULAR: Regular rate and rhythm RESPIRATORY: anterior stephen clear. on mechanical ventilation. GASTROINTESTINAL: Abdomen soft, nondistended. EXTREMITIES: No cyanosis NEUROLOGICAL: intubated, sedated. Assessment/Plan Problem List: (1) Thrombocytopenia ICD Codes: D69.6 - Thrombocytopenia, unspecified Plan: 11/06/16. Unlikely DC as fibrinogen increase. Renal function remain the same. Check LDH and retic. Suspect drug effect, suppression from antiseizure medication. Pt w/ new superficial thrombosis- cephalic vein thrombosis off LMWH, Resume LMWH, HIT antibody was negative. Transfuse platelets <20k and check post platelet transfusion count Discussed w/ health administration teacher. --?drug effect --has no significant hemolysis --LDH is only in the upper limits of normal at 332-->is unimpressive for hemolysis. --renal function is improving which argues against a hemolytic process. --peripheral smear review: does not support MONSERRAT (microangiopathic hemolysis) --Piyush test negative --coags/fibrinogen--> show mildly low fibrinogen, mildly prolonged PT, normal PTT. --HIT negative --no splenomegaly Assessment 66y/o male with thrombocytopenia, renal insufficiency suspicious for TTP/HUS. HPI( from initial consult): admitted on 10/24. He presented with dizziness. admitted to the psychiatric unit for SI and AMS. He was evaluated by neurology and Parkinson's and B12 deficiency is considered in the differential. His complements the history is suggesting that the mental status change has been acute in nature. He was subsequently transferred back to the medical floor. history of dyslipidemia, dysphasia, hypertension, diabetes. Imaging study, MRI of the brain showed no acute findings identified. VQ scan shows low probability for pulmonary embolism. Repeat brain MRI scan showed no acute intracranial process to produce the symptoms. Plan 1. HIT neg. 2. monitor CBC 3. Restart Lovenox 4. Monitor platelet count, transfuse for platelet <20K 5. Check retic and LDH Deya Li MD Nov 06, 2016 11:14
--- NOTE | 2016-11-06 11:39 | HHI.PR ---
Subjective Remarks sedation being decreased eeg w/o sz's just slow took a couple of breaths over the vent I was informed. at bedside. Objective Vital Signs Date Time Temp Pulse Resp B/P (MAP) Pulse Ox O2 Delivery O2 Flow Rate FiO2 11/06/16 08:04 98 35 11/06/16 06:00 75 11/06/16 04:30 97 35 11/06/16 04:00 79 11/06/16 04:00 99.3 79 16 98/60 (73) 92 11/06/16 04:00 35 11/06/16 02:00 77 11/06/16 01:07 98 35 11/06/16 00:00 99.2 85 17 119/66 (83) 95 11/06/16 00:00 35 11/06/16 00:00 85 11/05/16 22:12 100 35 11/05/16 22:00 92 11/05/16 22:00 99.2 88 24 112/80 (91) 94 11/05/16 21:50 99.6 89 24 110/91 (97) 95 11/05/16 21:30 99.6 90 16 104/58 (73) 96 11/05/16 21:08 90 22 131/79 11/05/16 20:00 87 11/05/16 20:00 35 11/05/16 20:00 98.3 87 24 140/84 (102) 94 11/05/16 19:47 98 35 11/05/16 18:00 87 11/05/16 16:00 97.7 84 19 142/85 (104) 99 11/05/16 16:00 89 11/05/16 16:00 35 11/05/16 15:46 100 35 11/05/16 14:00 82 11/05/16 12:00 81 11/05/16 12:00 35 11/05/16 12:00 97.9 83 18 133/74 (93) 97 I/O 11/05/16 11/05/16 11/05/16 11/06/16 11/06/16 11/06/16 07:00 15:00 23:00 07:00 15:00 23:00 Intake Total 325 ml 1515 ml 3088 ml Output Total 1400 ml 1425 ml 1000 ml Balance -1400 ml 325 ml 90 ml 2088 ml IV Total 325 ml 315 ml 2033 ml Tube Feeding 600 ml 455 ml Other 600 ml 600 ml Output Urine Total 1350 ml 1375 ml 900 ml Stool Total 50 ml 50 ml 100 ml Result Diagram: 11/06/16 0553 11/06/16 0553 Other Results pht 7. vpa 43 Objective Remarks intub/vent still sedated opened eyes for sternal rub,blinks not following commands or moving extremities. Assessment and Plan Assessment and Plan ?encephalitis seizures -cont vimpat,vpa and pht check levels pht,vpa pendig antinmda ab's and paraneoplastic panel. continue to wean off sedation unless sz's reoccur. Dr Branham in am. Violetta Dwyer MD Nov 06, 2016 11:39
[2016-11-06] MEDS: PANTOPRAZOLE SODIUM 40 MG VIAL IV PUSH SCH (16:47)
--- NOTE | 2016-11-06 17:15 | HHI.PR ---
Subjective Remarks 66 YOWM with AMS, sz, renal insuff Intubated for airway protection Sedated with Versed at BS [place] to wean Versed Objective Vital Signs Vital Signs Date Time Temp Pulse Resp B/P (MAP) Pulse Ox O2 Delivery O2 Flow Rate FiO2 11/06/16 16:09 95 35 11/06/16 16:00 35 11/06/16 14:00 77 11/06/16 12:00 98.9 79 16 115/66 (82) 94 11/06/16 12:00 35 11/06/16 11:41 95 35 11/06/16 08:04 98 35 11/06/16 08:00 98.8 78 17 99/58 (72) 96 11/06/16 08:00 35 11/06/16 06:00 75 11/06/16 04:30 97 35 11/06/16 04:00 79 11/06/16 04:00 99.3 79 16 98/60 (73) 92 11/06/16 04:00 35 11/06/16 02:00 77 11/06/16 01:07 98 35 11/06/16 00:00 99.2 85 17 119/66 (83) 95 11/06/16 00:00 35 11/06/16 00:00 85 11/05/16 22:12 100 35 11/05/16 22:00 92 11/05/16 22:00 99.2 88 24 112/80 (91) 94 11/05/16 21:50 99.6 89 24 110/91 (97) 95 11/05/16 21:30 99.6 90 16 104/58 (73) 96 11/05/16 21:08 90 22 131/79 11/05/16 20:00 87 11/05/16 20:00 35 11/05/16 20:00 98.3 87 24 140/84 (102) 94 11/05/16 19:47 98 35 11/05/16 18:00 87 I/O 11/05/16 11/05/16 11/05/16 11/06/16 11/06/16 11/06/16 07:00 15:00 23:00 07:00 15:00 23:00 Intake Total 325 ml 1515 ml 3088 ml Output Total 1400 ml 1425 ml 1000 ml Balance -1400 ml 325 ml 90 ml 2088 ml IV Total 325 ml 315 ml 2033 ml Tube Feeding 600 ml 455 ml Other 600 ml 600 ml Output Urine Total 1350 ml 1375 ml 900 ml Stool Total 50 ml 50 ml 100 ml Result Diagram: 11/06/1655211/06/1653 Objective Remarks GENERAL: WBWN male, unresponsive SKIN: Warm and dry. HEAD: Normocephalic. EYES: No scleral icterus. No injection or drainage. NECK: Supple, trachea midline. No JVD or lymphadenopathy. CARDIOVASCULAR: Regular rate and rhythm without murmurs, gallops, or rubs. RESPIRATORY: Breath sounds equal bilaterally. No accessory muscle use. GASTROINTESTINAL: Abdomen soft, non-tender, nondistended. MUSCULOSKELETAL: No cyanosis, or edema. BACK: Nontender without obvious deformity. No CVA tenderness. A/P Assessment and Plan AMS SZ disorder Renal insuff ? Cerebritis RF, on vent PLAN Vent Support Anti sz meds Monitor renal functions Neuro following pt. DW at Stanley Malhotra MD Nov 06, 2016 17:15
[2016-11-06] MEDS: ACETAMINOPHEN 325 MG TAB Pre-med PO SCH ×2 (17:44→20:29)
[2016-11-06] MEDS: CEFEPIME INJ 2,000 MG in SODIUM CHLORIDE 0.9% INJ 100 ML IV SCH (18:00)
--- NOTE | 2016-11-06 19:59 | HHI.IDPN ---
Subjective Subjective Remarks ID Xcover for Dr Nguyen No seizures remans onsedation, dose weaned down remains on vent moderate hutchison secretions Blood clzx are + for a GNR 2/2 sputum + for MSSA, a GNR Antibiotics Levaquin for UTI Past Medical History Hypertension Diabetes Dyslipidemia Depression Past Surgical History Umbilical hernia repair Allergies: Coded Allergies: penicillin G (Unverified Allergy, Severe, 10/17/16) Objective . Vital Signs Date Time Temp Pulse Resp B/P (MAP) Pulse Ox O2 Delivery O2 Flow Rate FiO2 11/06/16 18:53 17 11/06/16 18:00 80 11/06/16 16:09 95 35 11/06/16 16:00 35 11/06/16 16:00 99.4 79 17 110/63 (79) 96 11/06/16 14:00 77 11/06/16 12:00 98.9 79 16 115/66 (82) 94 11/06/16 12:00 35 11/06/16 11:41 95 35 11/06/16 08:04 98 35 11/06/16 08:00 98.8 78 17 99/58 (72) 96 11/06/16 08:00 35 11/06/16 06:00 75 11/06/16 04:30 97 35 11/06/16 04:00 79 11/06/16 04:00 99.3 79 16 98/60 (73) 92 11/06/16 04:00 35 11/06/16 02:00 77 11/06/16 01:07 98 35 11/06/16 00:00 99.2 85 17 119/66 (83) 95 11/06/16 00:00 35 11/06/16 00:00 85 11/05/16 22:12 100 35 11/05/16 22:00 92 11/05/16 22:00 99.2 88 24 112/80 (91) 94 11/05/16 21:50 99.6 89 24 110/91 (97) 95 11/05/16 21:30 99.6 90 16 104/58 (73) 96 11/05/16 21:08 90 22 131/79 11/05/16 20:00 87 11/05/16 20:00 35 11/05/16 20:00 98.3 87 24 140/84 (102) 94 11/06/16 11/06/16 11/07/16 14:59 22:59 06:59 Intake Total 1914 ml Output Total 1200 ml Balance 714 ml IV Total 968 ml Tube Feeding 946 ml Output Urine Total 1200 ml . Laboratory Tests Test 11/05/16 05:50 11/06/16 05:53 White Blood Count 9.1 TH/MM3 8.2 TH/MM3 Red Blood Count 3.39 MIL/MM3 3.09 MIL/MM3 Hemoglobin 10.0 GM/DL 9.4 GM/DL Hematocrit 30.6 % 27.7 % Mean Corpuscular Volume 90.5 FL 89.8 FL Mean Corpuscular Hemoglobin 29.6 PG 30.4 PG Mean Corpuscular Hemoglobin Concent 32.7 % 33.9 % Red Cell Distribution Width 13.2 % 12.9 % Platelet Count 32 TH/MM3 37 TH/MM3 Mean Platelet Volume 9.5 FL 10.1 FL Neutrophils (%) (Auto) 93.3 % 92.4 % Lymphocytes (%) (Auto) 3.4 % 3.0 % Monocytes (%) (Auto) 3.3 % 4.5 % Eosinophils (%) (Auto) 0.0 % 0.0 % Basophils (%) (Auto) 0.0 % 0.1 % Neutrophils # (Auto) 8.5 TH/MM3 7.6 TH/MM3 Lymphocytes # (Auto) 0.3 TH/MM3 0.2 TH/MM3 Monocytes # (Auto) 0.3 TH/MM3 0.4 TH/MM3 Eosinophils # (Auto) 0.0 TH/MM3 0.0 TH/MM3 Basophils # (Auto) 0.0 TH/MM3 0.0 TH/MM3 CBC Comment DIFF FINAL AUTO DIFF Differential Comment AUTO DIFF CONFIRMED Platelet Estimate LOW Platelet Morphology Comment NORMAL Laboratory Tests Test 11/05/16 05:50 11/06/16 05:53 Blood Urea Nitrogen 40 MG/DL 38 MG/DL Creatinine 1.16 MG/DL 1.09 MG/DL Random Glucose 252 MG/DL 247 MG/DL Total Protein 6.2 GM/DL 6.2 GM/DL Albumin 1.2 GM/DL 1.1 GM/DL Calcium Level 6.6 MG/DL 7.2 MG/DL Alkaline Phosphatase 64 U/L 60 U/L Aspartate Amino Transf (AST/SGOT) 49 U/L 40 U/L Alanine Aminotransferase (ALT/SGPT) 104 U/L 80 U/L Total Bilirubin 0.4 MG/DL 0.4 MG/DL Sodium Level 142 MEQ/L 139 MEQ/L Potassium Level 4.1 MEQ/L 4.1 MEQ/L Chloride Level 109 MEQ/L 107 MEQ/L Carbon Dioxide Level 25.4 MEQ/L 25.3 MEQ/L Anion Gap 8 MEQ/L 7 MEQ/L Estimat Glomerular Filtration Rate 63 ML/MIN 67 ML/MIN Protein Corrected Calcium 7.0 MG/DL 7.7 MG/DL Microbiology Date/Time Source Procedure Growth Status 11/05/16 14:45 Blood Peripheral Aerobic Blood Culture - Preliminary NO GROWTH IN 1 DAY Resulted 11/05/16 14:45 Blood Peripheral Anaerobic Blood Culture - Preliminary NO GROWTH IN 1 DAY Resulted 11/05/16 14:35 Blood Peripheral Aerobic Blood Culture - Preliminary Gram Negative Gopi Resulted 11/05/16 14:35 Blood Peripheral Anaerobic Blood Culture - Preliminary NO GROWTH IN 1 DAY Resulted 11/05/16 09:15 Sputum Endotracheal Gram Stain - Final Resulted 11/05/16 09:15 Sputum Culture - Preliminary Staphylococcus Aureus Gram Negative Gopi Resulted 11/06/16 03:00 Urine Catheterized Urine Urine Culture Pending Received Imaging Last Impressions Chest X-Ray 11/05/16 0000 Signed Impressions: Service Date/Time: Saturday, November 05, 2016 09:29 - CONCLUSION: Interval development of atelectasis right lung base. Lemuel Eastman MD Upper Extremity Ultrasound 11/04/16 0000 Signed Impressions: Service Date/Time: Friday, November 04, 2016 18:24 - CONCLUSION: Occlusion of the cephalic vein. The other veins are patent. Everett Block MD Lower Extremity Ultrasound 11/03/16 0000 Signed Impressions: Service Date/Time: Thursday, November 03, 2016 15:19 - CONCLUSION: Negative for deep venous thrombosis. Rahat Frey MD FACR Chest CT 11/01/16 0000 Signed Impressions: Service Date/Time: Tuesday, November 01, 2016 15:59 - CONCLUSION: Minimal nonspecific adenopathy the bibasilar parenchymal changes worse on the left. Rahat Frey MD FACR Abdomen/Pelvis CT 11/01/16 0000 Signed Impressions: Service Date/Time: Tuesday, November 01, 2016 16:04 - CONCLUSION: Nonspecific minimal bowel wall thickening transverse colon. There are no ancillary signs of malignancy. Rahat Frey MD FACR Brain MRI 10/31/16 0000 Signed Impressions: Service Date/Time: Monday, October 31, 2016 10:51 - CONCLUSION: 1. Subtle signal abdomen only at the pinto-white junction in the right hemisphere as above. The findings may reflect encephalitis or cerebritis Kranthi Lloyd MD Lumbar Puncture Fluoroscopy 10/26/16 0000 Signed Impressions: Service Date/Time: October 12:24 - CONCLUSION: Uncomplicated fluoroscopically guided cervical puncture. Kranthi Lloyd MD Physical Exam CONSTITUTIONAL/GENERAL: On the vent, looks comfortable. SKIN: No jaundice, rashes, or lesions. HEAD: Atraumatic. Normocephalic. EYES: Pupils equal and round and reactive. No scleral icterus. No injection or drainage. Fundi not examined. ENT: Hearing not tested. Nose without bleeding or purulent drainage. Orally intubated NECK: Trachea midline. Supple, nontender. CARDIOVASCULAR: Regular rate and rhythm without murmurs, gallops, or rubs. No JVD. Peripheral pulses symmetric. RESPIRATORY/CHEST: Coarse breath sounds bilaterally GASTROINTESTINAL: Abdomen soft, non-tender, nondistended. No hepato-splenomegaly , or palpable masses. No guarding. Bowel sounds present. Incontinent of liquid brown stool GENITOURINARY: Mcdaniel catheter in place with clear yellow urine MUSCULOSKELETAL: Extremities without clubbing, cyanosis, or edema. No mottling or clubbing. NEUROLOGICAL: Sedated; opens eyes, not tracking, not making eye contact, not following commands PSYCHIATRIC: unable to assess Assessment & Plan Remarks Cerebritis , encephalitis: infectious vs autoimnnune 14-3-3 PROTEIN,CSF: LESS THAN 2 ng/mL - ASH neg, ESR wnl - MRI cw cerebritis/encephalitis clinicall progression of neurological symptoms HSV negative CSF with nl glc, protein, bordeline moncytic pleocytosis Lymphopenia Progressive thrombocytopenia No unusual animals/insects exposure Respiratory failure UTI GNB bacteremia - new ? source UTI vs PNA PNA: growing a GNR, MSSA RECS: Continue levaquin add cefepime fu BC Follow temps Monitor progress Await HIV test Consider repeat MRI dw RN dw @ b/s [place] Mackay MD Nov 06, 2016 19:59
[2016-11-06] MEDS: NS 500 ML Pre-hydration IV SCH (20:00)
[2016-11-06] MEDS: D5W as prime bag (IVIG as secondary) IV SCH (20:27)
[2016-11-06] MEDS: DIPHENHYDRAMINE HCL 25 MG CAP Pre-med PO SCH (20:28)
[2016-11-06] MEDS: IMMUNE GLOBULIN INJ 40 GM in SYRINGE/BAG 1 EA IV SCH (20:29)
[2016-11-07] VITALS (20 sets, daily range): BP systolic 118–127; BP diastolic 67–73; PULSE 70–88; RESP 16; TEMP 98.6–99.4; O2SAT 94–100
[2016-11-07] MEDS: CEFEPIME INJ 2,000 MG in SODIUM CHLORIDE 0.9% INJ 100 ML IV SCH ×3 (01:33→17:52)
[2016-11-07] MEDS: methylPREDNISolone SOD SUCC 125 MG/2 ML VIAL IV SCH ×4 (01:33→19:54)
[2016-11-07] MEDS: FOSPHENYTOIN SODIUM 100 MG PE/2 ML VIAL IV SCH ×4 (02:39→23:09)
[2016-11-07] MEDS: VALPROATE INJ 500 MG in SODIUM CHLORIDE 0.9% INJ 100 ML IV SCH ×3 (02:39→17:54)
[2016-11-07] MEDS: LACOSAMIDE INJ 100 MG in SODIUM CHLORIDE 0.9% INJ 100 ML IV SCH ×4 (02:39→20:11)
[2016-11-07] MEDS: INSULIN NovoLIN REGULAR SUPPLEMENTAL SCALE SQ SCH ×5 (04:00→23:10)
[2016-11-07] MEDS: RESP: ALBUTEROL 2.5 MG/IPRATROPIUM 0.5 MG NEB (SCH) NEB ×4 (05:05→20:12)
[2016-11-07 06:19] LABS: RETIC % 0.6 % (0.4-3.0)
[2016-11-07 06:20] LABS: AUTOMATED NEUTROPHIL # 9.1 TH/MM3 (1.8-7.7); BASOPHIL % 0.1 % (0.0-2.0); HEMATOCRIT 26.8 % (39.0-51.0); LYMPH % 3.3 % (9.0-44.0); LYMPHOCYTE # 0.3 TH/MM3 (1.0-4.8); MEAN CELL VOLUME 89.4 FL (80.0-100.0); MEAN CORPUSCULAR HEMOGLOBIN 30.6 PG (27.0-34.0); MEAN CORPUSCULAR HGB CONC 34.2 % (32.0-36.0); MONO % 3.6 % (0.0-8.0); PLATELET COUNT 54 TH/MM3 (150-450); RED CELL DISTRIBUTION WIDTH 12.7 % (11.6-17.2); WHITE BLOOD COUNT 9.8 TH/MM3 (4.0-11.0)
[2016-11-07 06:26] LABS: REVIEW FLAG FINAL
[2016-11-07 06:27] LABS: HEMO FLAGS AUTO DIFF
[2016-11-07 07:11] LABS: BICARBONATE 25.5 MEQ/L (21.0-32.0)
[2016-11-07 07:56] LABS: BANDS 1 % (0-6); MYELOCYTES 1 % (0-0); NEUTROPHIL # MANUAL DIFF 9.4 TH/MM3 (1.8-7.7); PLATELET ESTIMATE SMEAR LOW (NORMAL); PLATELET MORPHOLOGY ENLARGED (NORMAL); POLYS (SEG NEUTROPHILS) 94 % (16-70); WBC DIFF SAMPLE 100
[2016-11-07 07:57] LABS: SCAN/DIFF FINAL DIFF MANUAL
[2016-11-07] MEDS: DOCUSATE SODIUM 100 MG/10 ML UDC PO SCH ×2 (08:47→19:55)
[2016-11-07] MEDS: ENOXAPARIN SODIUM 40 MG/0.4 ML SYRINGE SQ SCH (08:47)
[2016-11-07] MEDS: INSULIN DETEMIR 100 UNITS/ML VIAL SQ SCH ×2 (08:54→21:12)
[2016-11-07] MEDS: CHLORHEXIDINE 0.12% (ORAL KIT) 15 ML CUP MT SCH ×2 (08:57→19:41)
[2016-11-07] MEDS: LEVOFLOXACIN 500 MG TAB PO SCH (08:58)
[2016-11-07] MEDS: LACTULOSE SYRUP 20 GM/30 ML CUP PO SCH ×3 (08:58→17:41)
[2016-11-07] MEDS: SODIUM CHLORIDE 0.9% FLUSH 10 ML FLUSH IV FLUSH SCH ×2 (08:59→21:10)
[2016-11-07] MEDS: SENNOSIDES SYRUP 8.8 MG/5 ML CUP PO SCH (08:59)
--- NOTE | 2016-11-07 09:29 | HHI.CCPN ---
Subjective Remarks/Hospital Course Hospital Course: This is a 66-year-old man with history of diabetes, hypertension, dyslipidemia who about a month ago started having difficulty with balance with shuffling type of gait and resting tremor along with recent cognitive decline as well. His initial admission was on 10/06/16, as initial workup was negative patient was admitted to psych unit on 10/06/16 for suicidal ideations and altered mental status. He was evaluated by neurology Dr Branham, possibility of Parkinsonian symptoms and vitamin B 12 deficiency was entertained, but there was no improvement with treatment. He was re admitted to hospitalist service with worsening mental status on 10/25/16. Per Dr. Branham, MRI showed possible cerebritis. Differential included Creutzfeldt-Ministerio. But 14-3-3 protein for Creutzfeldt-Ministerio was negative. Currently on acyclovir for possibility of viral cerebritis. EEG done 10/24/16 showed generalized epileptiform activity. Patient was placed on Cerebyx, Keppra. Keppra was DCd due to rash and currently patient is on Cerebyx and Vimpat. Repeat EEGs from 10/31/16 and today shows continued seizure activity/subclinical seizures. Patient continues to be encephalopathic not responding. EEG today shows continued seizure activity indicating status epilepticus. Critical-care medicine was consulted by Dr. Branham today for continuous Versed infusion after intubation I evaluated the patient in ICU. He barely opens his eyes to painful stimuli localizes with right upper extremity withdrawal of any other extremities. Discussed with Dr. Branham multiple times. In his opinion, this appears to be a autoimmune encephalitis less likely to be infectious. Anti-NMDA receptor antibody ordered. Per Dr. Branham D/D possibly paraneoplastic, vasculitic or NMDA- receptor encephalitis. Currently patient is on IV Solu-Medrol and IVIG had been ordered by Dr. Branham. Initiate continuous EEG monitoring. TTP/HUS unlikely, but patient has E Coli UTI, I have asked for peripheral smear review by pathologist Subjective: 11/02: remains encephalopathic, but also very deeply sedated on versed drip. continuous EEG with intermittent sharp spikes that correspond with rhythmic neck movement. neurology adding additional anti-epileptics. peripheral smear without Schistocytes. currently receiving IVIG for possible auto-immune encephalopathy. 11/03 Patient remains sedated and intubated. Afebrile. 11/04 Patient remains intubated and sedated with Versed 10mg/hr. Tmax 100.6 11/05 No events overnight. On Versed drip for sedation, no seizures overnight. Patient is on continuous EEG monitoring. T: 101.0 last night. 11/06 Patient is sedated with Versed and Fentanyl. No seizures overnight. Afebrile. 11/07 Patient remains sedated and intubated. Afebrile. No recurrent seizures overnight. Objective Vital Signs Date Time Temp Pulse Resp B/P (MAP) Pulse Ox O2 Delivery O2 Flow Rate FiO2 11/07/16 09:05 100 35 11/07/16 06:00 81 11/07/16 04:00 99.4 16 119/67 (84) 11/06/16 20:09 Ventilator Intake and Output 11/07/16 11/07/16 11/07/16 07:59 15:59 23:59 Intake Total 1112 ml Output Total 1250 ml Balance -138 ml Result Diagram: 11/07/16 0601 11/07/16 0601 Other Results Laboratory Tests Test 11/07/16 06:01 White Blood Count 9.8 TH/MM3 Red Blood Count 3.00 MIL/MM3 Hemoglobin 9.2 GM/DL Hematocrit 26.8 % Mean Corpuscular Volume 89.4 FL Mean Corpuscular Hemoglobin 30.6 PG Mean Corpuscular Hemoglobin Concent 34.2 % Red Cell Distribution Width 12.7 % Platelet Count 54 TH/MM3 Mean Platelet Volume 10.6 FL Neutrophils (%) (Auto) 93.0 % Lymphocytes (%) (Auto) 3.3 % Monocytes (%) (Auto) 3.6 % Eosinophils (%) (Auto) 0.0 % Basophils (%) (Auto) 0.1 % Neutrophils # (Auto) 9.1 TH/MM3 Lymphocytes # (Auto) 0.3 TH/MM3 Monocytes # (Auto) 0.3 TH/MM3 Eosinophils # (Auto) 0.0 TH/MM3 Basophils # (Auto) 0.0 TH/MM3 CBC Comment AUTO DIFF Differential Total Cells Counted 100 Neutrophils % (Manual) 94 % Band Neutrophils % 1 % Monocytes % 4 % Neutrophils # (Manual) 9.4 TH/MM3 Myelocytes 1 % Differential Comment FINAL DIFF MANUAL Platelet Estimate LOW Platelet Morphology Comment ENLARGED Reticulocyte Count 0.6 % Absolute Reticulocyte Count 19.5 MIL/L Blood Urea Nitrogen 36 MG/DL Creatinine 1.06 MG/DL Random Glucose 228 MG/DL Total Protein 6.8 GM/DL Calcium Level 6.8 MG/DL Lactate Dehydrogenase 239 U/L Sodium Level 141 MEQ/L Potassium Level 4.0 MEQ/L Chloride Level 109 MEQ/L Carbon Dioxide Level 25.5 MEQ/L Anion Gap 7 MEQ/L Estimat Glomerular Filtration Rate 69 ML/MIN Protein Corrected Calcium 7.0 MG/DL Imaging Last Impressions Chest X-Ray 11/05/16 Signed Impressions: Service Date/Time: Saturday, November 05, 2016 09:29 - CONCLUSION: Interval development of atelectasis right lung base. Lemuel Eastman MD Upper Extremity Ultrasound 11/04/16 Signed Impressions: Service Date/Time: Friday, November 04, 2016 18:24 - CONCLUSION: Occlusion of the cephalic vein. The other veins are patent. Everett Block MD Lower Extremity Ultrasound 11/03/16 Signed Impressions: Service Date/Time: Thursday, November 03, 2016 15:19 - CONCLUSION: Negative for deep venous thrombosis. Rahat Frey MD FACR Chest CT 11/01/16 0000 Signed Impressions: Service Date/Time: Tuesday, November 01, 2016 15:59 - CONCLUSION: Minimal nonspecific adenopathy the bibasilar parenchymal changes worse on the left. aRhat Frey MD FACR Abdomen/Pelvis CT 11/01/16 0000 Signed Impressions: Service Date/Time: Tuesday, November 01, 2016 16:04 - CONCLUSION: Nonspecific minimal bowel wall thickening transverse colon. There are no ancillary signs of malignancy. Rahat Frey MD FACR Brain MRI 10/31/16 0000 Signed Impressions: Service Date/Time: Monday, October 31, 2016 10:51 - CONCLUSION: 1. Subtle signal abdomen only at the pinto-white junction in the right hemisphere as above. The findings may reflect encephalitis or cerebritis Kranthi Lloyd MD Lumbar Puncture Fluoroscopy 10/26/16 0000 Signed Impressions: Service Date/Time: October 12:24 - CONCLUSION: Uncomplicated fluoroscopically guided cervical puncture. Kranthi Lloyd MD Objective Remarks GENERAL: middle-aged male, lying in bed, intubated, unresponsive and severely encephalopathic SKIN: Warm and dry. No lesions noted. HEENT: Normocephalic. Pupils equal 2 mm nonreactive. Disconjugate gaze CARDIOVASCULAR: Regular rate and rhythm. No murmur appreciated. RESPIRATORY: No accessory muscle use. Clear to auscultation. Breath sounds equal bilaterally. GASTROINTESTINAL: Abdomen soft, non-tender, nondistended. MUSCULOSKELETAL: No obvious deformities. No clubbing or cyanosis. No edema. NEUROLOGICAL: Deeply sedated on versed infusion. Patient is unresponsive. Pupils 2 mm millimeter unreactive with disconjugate gaze. To noxious stimuli there is partial eye opening, localizes with right upper extremity slight withdrawal of the right lower extremity. 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 The findings may reflect encephalitis or cerebritis -Will repeat MRI brain today - On Continuous EEG, no seizures overnight - Continue IV Cerebyx 100mg Q6 Vimpat, Depakote. Monitor levels Dilantin level : 7.0, Depakote level 43 11/05. Check levels today - Workup negative for infectious encephalitis including CJD - Ongoing workup for autoimmune encephalitis, anti-NMDA receptor antibody pending - Continue IV Solu-Medrol 125mg IV Q6 and IVIG per Dr. Branham - TTP/HUS unlikely given lack of schistocytes on peripheral smear 11/01 RESP: Acute hypoxic and hypercarbic respiratory failure - Intubated for failure to protect airway from status epilepticus - PRVC 16/550/5/IT;1 35%, and ICU vent bundle - DuoNeb every 6 hours and when necessary - SBT daily as ryland. -CXR 11/05: Atelectasis right lung base CV: -Monitor HR and BP keep MAP>65mmHg GI: - IV Protonix for GI prophylaxis -Continue tube feeds- Glucerna 1.5 @ 50ml/hr : Acute kidney injury - Monitor renal function, electrolytes replacement as needed ID: Encephalitis is probably noninfectious E Coli UTI Gram negative bacteremia Pneumonia Continue with abx (Cefepime, Levaquin) ID is following monitor for isgns of infections ( Fever, WBC) - Blood,sputum from 11/05: GNR, sputum cx 11/05: GNR, Staph Aureus -Urine cx 11/06: pending - TTP/HUS unlikely given negative peripheral smear for schistocytes -ID is following HEME: - Monitor CBC, CMP, coags, Fibrinogen level 365 11/05, Heme is following -HIT panel is negative ENDO: Type 2 diabetes - Electrolyte replacement per protocol - Increase SSI (High scale) Levemir 14 units BID PROPH: - Bilateral lower extremity SCDs. Lovenox on hold for thrombocytopenia ( PLT 54 today from 37 11/06) -US RUE: Occlusion of the cephalic vein. Patient is at high for anticoagulation given thrombocytopenia -US LE b/L: No DVT - IV Protonix LINES: - Utilize peripheral IVs Level 3 Brad Sheridan MD Nov 07, 2016 09:28
[2016-11-07] MEDS ORDERED: DEXTROSE 50% IN WATER 50 ML VIAL(D50) IV PRN (09:30)
[2016-11-07] MEDS ORDERED: GLUCAGON 1 MG/ML VIAL OTHER PRN (09:30)
--- NOTE | 2016-11-07 12:17 | RADRPT ---
EXAM DATE/TIME: 11/07/2016 11:17 [facility] COMPARISON: MRI BRAIN W & W/O CONTRAST, October 24, 2016, 9:34. INDICATIONS : Encephalitis. CONTRAST: 18 cc Omniscan (gadodiamide) IV MEDICAL HISTORY : None. SURGICAL HISTORY : Inguinal hernia repair. ENCOUNTER: Subsequent ACUITY: 2 weeks PAIN SCORE: Nonresponsive. LOCATION: head TECHNIQUE: Multiplanar, multisequence MRI of the brain was performed both prior to and following the administrat ion of paramagnetic contrast. FINDINGS: The craniocervical junction and midline structures are unremarkable. There is continued clinical sign al abnormality in the mesial occipital lobe and right parietal region nonspecific change from the rc or study. No acute hemorrhage is identified. No intra-axial fluid collections are evident. Posterior fossa structures are unremarkable. Following the administration of contrast no abnormal enhancement i s identified. CONCLUSION: 1. Continued subtle signal abnormality involving the pinto-white junction in the right occipital and r ight parietal regions. There has been no significant change when compared to the prior exam. Kranthi Lloyd MD on November 07, 2016 at 12:10 Board Certified Radiologist. This report was verified electronically.
--- NOTE | 2016-11-07 12:39 | RADRPT ---
EXAM DATE/TIME: 11/07/2016 11:55 [facility] COMPARISON: CHEST SINGLE AP, November 05, 2016, 9:29. INDICATIONS : Short of breath. MEDICAL HISTORY : Hypercholesterolemia. Osteoarthritis. Gastroesophageal reflux disease. Diabetes. SURGICAL HISTORY : Umbilical hernia repair. Tonsillectomy. ENCOUNTER: Subsequent ACUITY: 2 weeks PAIN SCORE: Non-responsive. LOCATION: Bilateral chest FINDINGS: The cardiac silhouette is normal in transverse diameter. Support lines and tubes are in satisfactory position. There is subsegmental atelectasis in the both bases. There has been no significant change when compared to the prior exam. CONCLUSION: 1. Subsegmental atelectasis both bases. There has been no significant change when compared to the rc or exam. Kranthi Lloyd MD on November 07, 2016 at 12:37 Board Certified Radiologist. This report was verified electronically.
[2016-11-07] MEDS ORDERED: GADODIAMIDE PF 287 MG/ML 10 ML VIAL (for RAD MRI) IV PUSH ONE (13:07)
--- NOTE | 2016-11-07 16:02 | HHI.IDPN ---
Subjective Subjective Remarks ID Xcover for Dr Nguyen No seizures Awake borderline temps remains on vent moderate hutchison secretions Blood clzx are + for a GNR 2/2 sputum + for MSSA, a GNR Antibiotics Levaquin cefepime Past Medical History Hypertension Diabetes Dyslipidemia Depression Past Surgical History Umbilical hernia repair Allergies: Coded Allergies: penicillin G (Unverified Allergy, Severe, 10/17/16) Objective . Vital Signs Date Time Temp Pulse Resp B/P (MAP) Pulse Ox O2 Delivery O2 Flow Rate FiO2 11/07/16 14:00 77 11/07/16 12:48 97 35 11/07/16 12:00 60 11/07/16 12:00 99.0 83 16 127/73 (91) 94 11/07/16 12:00 83 11/07/16 11:00 97 60 11/07/16 10:00 86 11/07/16 09:05 100 35 11/07/16 08:00 81 11/07/16 08:00 35 11/07/16 08:00 98.6 81 16 119/68 (85) 100 11/07/16 06:00 81 11/07/16 05:01 100 35 11/07/16 04:00 35 11/07/16 04:00 99.4 83 16 119/67 (84) 100 11/07/16 04:00 83 11/07/16 02:00 88 11/07/16 00:13 97 35 11/07/16 00:00 99.2 77 16 125/67 (86) 97 11/07/16 00:00 70 11/07/16 00:00 35 11/06/16 22:00 77 11/06/16 21:10 99.3 79 18 113/60 (77) 96 11/06/16 20:29 80 22 111/60 11/06/16 20:09 96 Ventilator 35 11/06/16 20:09 96 35 11/06/16 20:00 35 11/06/16 20:00 79 11/06/16 20:00 99.3 79 16 108/58 (75) 96 11/06/16 18:53 17 11/06/16 18:00 80 11/06/16 16:09 95 35 11/06/16 16:00 35 11/06/16 16:00 99.4 79 17 110/63 (79) 96 . Laboratory Tests Test 11/06/16 05:53 11/07/16 06:01 White Blood Count 8.2 TH/MM3 9.8 TH/MM3 Red Blood Count 3.09 MIL/MM3 3.00 MIL/MM3 Hemoglobin 9.4 GM/DL 9.2 GM/DL Hematocrit 27.7 % 26.8 % Mean Corpuscular Volume 89.8 FL 89.4 FL Mean Corpuscular Hemoglobin 30.4 PG 30.6 PG Mean Corpuscular Hemoglobin Concent 33.9 % 34.2 % Red Cell Distribution Width 12.9 % 12.7 % Platelet Count 37 TH/MM3 54 TH/MM3 Mean Platelet Volume 10.1 FL 10.6 FL Neutrophils (%) (Auto) 92.4 % 93.0 % Lymphocytes (%) (Auto) 3.0 % 3.3 % Monocytes (%) (Auto) 4.5 % 3.6 % Eosinophils (%) (Auto) 0.0 % 0.0 % Basophils (%) (Auto) 0.1 % 0.1 % Neutrophils # (Auto) 7.6 TH/MM3 9.1 TH/MM3 Lymphocytes # (Auto) 0.2 TH/MM3 0.3 TH/MM3 Monocytes # (Auto) 0.4 TH/MM3 0.3 TH/MM3 Eosinophils # (Auto) 0.0 TH/MM3 0.0 TH/MM3 Basophils # (Auto) 0.0 TH/MM3 0.0 TH/MM3 CBC Comment AUTO DIFF AUTO DIFF Differential Comment AUTO DIFF CONFIRMED FINAL DIFF MANUAL Platelet Estimate LOW LOW Platelet Morphology Comment NORMAL ENLARGED Differential Total Cells Counted 100 Neutrophils % (Manual) 94 % Band Neutrophils % 1 % Monocytes % 4 % Neutrophils # (Manual) 9.4 TH/MM3 Myelocytes 1 % Reticulocyte Count 0.6 % Absolute Reticulocyte Count 19.5 MIL/L Laboratory Tests Test 11/06/16 05:53 11/07/16 06:01 Blood Urea Nitrogen 38 MG/DL 36 MG/DL Creatinine 1.09 MG/DL 1.06 MG/DL Random Glucose 247 MG/DL 228 MG/DL Total Protein 6.2 GM/DL 6.8 GM/DL Albumin 1.1 GM/DL Calcium Level 7.2 MG/DL 6.8 MG/DL Alkaline Phosphatase 60 U/L Aspartate Amino Transf (AST/SGOT) 40 U/L Alanine Aminotransferase (ALT/SGPT) 80 U/L Total Bilirubin 0.4 MG/DL Sodium Level 139 MEQ/L 141 MEQ/L Potassium Level 4.1 MEQ/L 4.0 MEQ/L Chloride Level 107 MEQ/L 109 MEQ/L Carbon Dioxide Level 25.3 MEQ/L 25.5 MEQ/L Anion Gap 7 MEQ/L 7 MEQ/L Estimat Glomerular Filtration Rate 67 ML/MIN 69 ML/MIN Protein Corrected Calcium 7.7 MG/DL 7.0 MG/DL Lactate Dehydrogenase 239 U/L Microbiology Date/Time Source Procedure Growth Status 11/05/16 14:45 Blood Peripheral Aerobic Blood Culture - Preliminary NO GROWTH IN 2 DAYS Resulted 11/05/16 14:45 Blood Peripheral Anaerobic Blood Culture - Preliminary NO GROWTH IN 2 DAYS Resulted 11/05/16 14:35 Blood Peripheral Aerobic Blood Culture - Preliminary Gram Negative Gopi Resulted 11/05/16 14:35 Blood Peripheral Anaerobic Blood Culture - Preliminary NO GROWTH IN 2 DAYS Resulted 11/05/16 09:15 Sputum Endotracheal Gram Stain - Final Resulted 11/05/16 09:15 Sputum Culture - Preliminary Staphylococcus Aureus Gram Negative Gopi Resulted 11/06/16 03:00 Urine Catheterized Urine Urine Culture - Preliminary NO GROWTH IN 24 HOURS. Resulted Imaging Last Impressions Chest X-Ray 11/07/16 0000 Signed Impressions: Service Date/Time: Monday, November 07, 2016 11:55 - CONCLUSION: 1. Subsegmental atelectasis both bases. There has been no significant change when compared to the prior exam. Kranthi Lloyd MD Brain MRI 11/07/16 0000 Signed Impressions: Service Date/Time: Monday, November 07, 2016 11:17 - CONCLUSION: 1. Continued subtle signal abnormality involving the pinto-white junction in the right occipital and right parietal regions. There has been no significant change when compared to the prior exam. Kranthi Lloyd MD Upper Extremity Ultrasound 11/04/16 0000 Signed Impressions: Service Date/Time: Friday, November 04, 2016 18:24 - CONCLUSION: Occlusion of the cephalic vein. The other veins are patent. Everett Block MD Lower Extremity Ultrasound 11/03/16 0000 Signed Impressions: Service Date/Time: Thursday, November 03, 2016 15:19 - CONCLUSION: Negative for deep venous thrombosis. Rahat Frey MD FACR Chest CT 11/01/16 0000 Signed Impressions: Service Date/Time: Tuesday, November 01, 2016 15:59 - CONCLUSION: Minimal nonspecific adenopathy the bibasilar parenchymal changes worse on the left. Rahat Frey MD FACR Abdomen/Pelvis CT 11/01/16 0000 Signed Impressions: Service Date/Time: Tuesday, November 01, 2016 16:04 - CONCLUSION: Nonspecific minimal bowel wall thickening transverse colon. There are no ancillary signs of malignancy. Rahat Frey MD FACR Lumbar Puncture Fluoroscopy 10/26/16 0000 Signed Impressions: Service Date/Time: October 12:24 - CONCLUSION: Uncomplicated fluoroscopically guided cervical puncture. Kranthi Lloyd MD Physical Exam CONSTITUTIONAL/GENERAL: On the vent, looks comfortable. SKIN: No jaundice, rashes, or lesions. HEAD: Atraumatic. Normocephalic. EYES: Pupils equal and round and reactive. No scleral icterus. No injection or drainage. Fundi not examined. ENT: Hearing not tested. Nose without bleeding or purulent drainage. Orally intubated NECK: Trachea midline. Supple, nontender. CARDIOVASCULAR: Regular rate and rhythm without murmurs, gallops, or rubs. No JVD. Peripheral pulses symmetric. RESPIRATORY/CHEST: Coarse breath sounds bilaterally GASTROINTESTINAL: Abdomen soft, non-tender, nondistended. No hepato-splenomegaly , or palpable masses. No guarding. Bowel sounds present. Incontinent of liquid brown stool GENITOURINARY: Mcdaniel catheter in place with clear yellow urine MUSCULOSKELETAL: Extremities without clubbing, cyanosis, or edema. No mottling or clubbing. NEUROLOGICAL: O pens eyes, not tracking, not making eye contact, not following commands PSYCHIATRIC: unable to assess Assessment & Plan Remarks Cerebritis , encephalitis: infectious vs autoimnnune repeat brain MRI negative 14-3-3 PROTEIN,CSF: LESS THAN 2 ng/mL - ASH neg, ESR wnl - MRI cw cerebritis/encephalitis clinicall progression of neurological symptoms HSV negative CSF with nl glc, protein, bordeline moncytic pleocytosis Lymphopenia Progressive thrombocytopenia No unusual animals/insects exposure Respiratory failure UTI GNB bacteremia - new ? source UTI vs PNA PNA: growing a GNR, MSSA RECS: Continue levaquin cont cefepime fu BC Follow temps Monitor progress Await HIV test dw Dr Yonas brock @ [facility] [place] Mackay MD Nov 07, 2016 16:02
--- NOTE | 2016-11-07 16:02 | HHI.PR ---
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 Differential includes possible anti-NMDA receptor encephalitis (antibody lab pending), paraneoplastic encephalitis Creutzfeldt-Juanjo in the differential. Plan continue the cerebyx at present dose---protein corrected phenytoin level is 16.6 increase depacote follow up paraneoplastic antibodies and anti nmda antibody--I called lab and not yet back. taper sedation if possible recheck eeg Diagnosis/Plan: Subjective Subjective Comments No acute events reported Active Medications Current Medications Medications (Trade) Dose Ordered Sig/Alyssa Route Start Time Stop Time Status Last Admin (NS Flush) 2 ml UNSCH PRN IV FLUSH 10/25/16 00:45 (NS Flush) 2 ml BID IV FLUSH 10/25/16 09:00 11/07/16 08:59 (Zofran Inj) 4 mg Q6H PRN IVP 10/25/16 00:45 (Narcan Inj) 0.4 mg UNSCH PRN IV 10/25/16 00:45 (Ativan Inj) 1 mg Q6H PRN IV 10/26/16 21:30 11/04/16 16:45 (Vasotec Inj) 1.25 mg Q6H PRN IV PUSH 10/26/16 21:30 10/27/16 13:35 (Catapres-Tts 0.1mg Patch.7d) 1 patch Q7D T-DERMAL 10/29/16 16:00 11/05/16 15:07 Miscellaneous Information 1 Q7D T-DERMAL 11/05/16 16:00 11/05/16 15:07 Lacosamide 100 mg/ Sodium Chloride 110 ml @ 110 mls/hr Q6H IV 11/01/16 15:00 11/07/16 15:04 (Cerebyx Inj) 100 mgpe Q6HR NEB IV 11/01/16 16:00 11/07/16 08:59 (Peridex 0.12% Liq) 15 ml BID@08,20 MT 11/01/16 20:00 11/07/16 08:57 Midazolam HCl 100 ml @ 2 mls/hr TITRATE PRN IV 11/01/16 12:30 11/06/16 20:28 (Duoneb Neb) 1 ampule Q6HR NEB PRN NEB 11/01/16 13:45 11/04/16 20:39 (Colace Liq) 100 mg Q12HR PO 11/01/16 21:00 11/07/16 08:47 (Protonix Inj) 40 mg Q24H IV PUSH 11/01/16 16:00 11/06/16 16:47 (Lovenox Inj) 40 mg Q24H SQ 11/02/16 09:00 Future hold 11/07/16 08:47 Potassium Chloride 100 ml @ 50 mls/hr Q2H PRN IV 11/01/16 14:00 Potassium Chloride 100 ml @ 50 mls/hr Q2H PRN IV 11/01/16 14:00 (K-Lyte Cl Eff) 50 meq UNSCH PRN PO 11/01/16 14:00 Potassium Chloride 100 ml @ 25 mls/hr UNSCH PRN IV 11/01/16 14:00 Potassium Chloride 100 ml @ 50 mls/hr Q2H PRN IV 11/01/16 14:00 Magnesium Sulfate 4 gm/Sodium Chloride 100 ml @ 50 mls/hr UNSCH PRN IV 11/01/16 14:00 (Mag-Ox) 800 mg UNSCH PRN PO 11/01/16 14:00 Magnesium Sulfate 2 gm/Sodium Chloride 100 ml @ 50 mls/hr UNSCH PRN IV 11/01/16 14:00 (K-Phos) 2,000 mg Q4H PRN PO 11/01/16 14:00 Sodium Phosphate 30 mmol/Sodium Chloride 250 ml @ 42 mls/hr UNSCH PRN IV 11/01/16 14:00 (K-Phos) 2,000 mg UNSCH PRN PO/TUBE 11/01/16 14:00 Potassium Phosphate 30 mmol/ Sodium Chloride 260 ml @ 42 mls/hr UNSCH PRN IV 11/01/16 14:00 (Tylenol 160 Mg/ 5 ml Liq) 325 mg Q6H PRN NG 11/01/16 14:00 Valproate Sodium 500 mg/Sodium Chloride 105 ml @ 105 mls/hr Q8H IV 11/02/16 11:00 11/07/16 11:00 (SoluMEDROL INJ) 125 mg Q6H IV 11/03/16 20:00 11/07/16 13:43 Sodium Chloride 500 ml @ 500 mls/hr Q24H IV 11/03/16 20:00 11/07/16 20:59 11/06/16 20:00 Immune Globulin 40 gm/Syringe / Bag 400 ml @ 28.89 mls/ hr Q24H IV 11/03/16 21:00 11/08/16 10:51 11/06/16 20:29 (Tylenol) 650 mg Q24H PO 11/03/16 20:00 11/07/16 20:01 11/06/16 20:29 (Benadryl) 25 mg Q24H PO 11/03/16 20:00 11/07/16 20:01 11/06/16 20:28 Dextrose 500 ml @ 30 mls/hr Q24H IV 11/03/16 21:00 11/08/16 13:39 11/06/16 20:27 (Benadryl Inj) 50 mg UNSCH PRN IV PUSH 11/03/16 19:15 11/09/16 06:00 (Adrenalin (1:1000) Inj) 0.3 mg Q10M PRN OTHER 11/03/16 20:00 11/09/16 06:00 (Duoneb Neb) 1 ampule Q6HR NEB NEB 11/05/16 10:00 11/07/16 15:57 (Senna Liq) 8.8 mg DAILY PO 11/05/16 09:00 11/07/16 08:59 (Lactulose Liq) 15 ml TID PO 11/05/16 09:00 11/07/16 13:43 (Levaquin) 500 mg DAILY PO 11/05/16 09:00 11/07/16 08:58 Fentanyl Citrate 250 ml @ 5 mls/hr TITRATE PRN IV 11/05/16 22:15 11/06/16 20:28 (Levemir Inj) 14 units Q12HR SQ 11/06/16 09:00 11/07/16 08:54 Cefepime HCl 2000 mg/Sodium Chloride 100 ml @ 200 mls/hr Q8H IV 11/06/16 18:00 11/07/16 08:58 (D50w (Vial) Inj) 50 ml UNSCH PRN IV 11/07/16 09:30 (Glucagon Inj) 1 mg UNSCH PRN OTHER 11/07/16 09:30 (NovoLIN R SUPPLEMENTAL SCALE) 1 Q6H SQ 11/07/16 11:00 11/07/16 11:00 Allergies Allergies Coded Allergies penicillin G (Unverified Allergy, Severe, 10/17/16) Review of Systems All other ROS: ROS reviewed as documented in chart Exam I&O / VS Vital Signs Date Time Temp Pulse Resp B/P (MAP) Pulse Ox O2 Delivery O2 Flow Rate FiO2 11/07/16 14:00 77 11/07/16 12:48 97 35 11/07/16 12:00 60 11/07/16 12:00 99.0 83 16 127/73 (91) 94 11/07/16 12:00 83 11/07/16 11:00 97 60 11/07/16 10:00 86 11/07/16 09:05 100 35 11/07/16 08:00 81 11/07/16 08:00 35 11/07/16 08:00 98.6 81 16 119/68 (85) 100 11/07/16 06:00 81 11/07/16 05:01 100 35 11/07/16 04:00 35 11/07/16 04:00 99.4 83 16 119/67 (84) 100 11/07/16 04:00 83 11/07/16 02:00 88 11/07/16 00:13 97 35 11/07/16 00:00 99.2 77 16 125/67 (86) 97 11/07/16 00:00 70 11/07/16 00:00 35 11/06/16 22:00 77 11/06/16 21:10 99.3 79 18 113/60 (77) 96 11/06/16 20:29 80 22 111/60 11/06/16 20:09 96 Ventilator 35 11/06/16 20:09 96 35 11/06/16 20:00 35 11/06/16 20:00 79 11/06/16 20:00 99.3 79 16 108/58 (75) 96 11/06/16 18:53 17 11/06/16 18:00 80 11/06/16 16:09 95 35 11/06/16 16:00 35 11/06/16 16:00 99.4 79 17 110/63 (79) 96 Exam Comments Intubated and on versed--nonresponsive CN--PERRL, MOTOR--no focal deficit.No clinical sz activity Objective Radiology Results MRI brain--no change in sublte signal abnormality right posterior parietal - occiptial Micro and Labs Laboratory Tests Test 11/07/16 06:01 White Blood Count 9.8 Red Blood Count 3.00 Hemoglobin 9.2 Hematocrit 26.8 Mean Corpuscular Volume 89.4 Mean Corpuscular Hemoglobin 30.6 Mean Corpuscular Hemoglobin Concent 34.2 Red Cell Distribution Width 12.7 Platelet Count 54 Mean Platelet Volume 10.6 Neutrophils (%) (Auto) 93.0 Lymphocytes (%) (Auto) 3.3 Monocytes (%) (Auto) 3.6 Eosinophils (%) (Auto) 0.0 Basophils (%) (Auto) 0.1 Neutrophils # (Auto) 9.1 Lymphocytes # (Auto) 0.3 Monocytes # (Auto) 0.3 Eosinophils # (Auto) 0.0 Basophils # (Auto) 0.0 CBC Comment AUTO DIFF Differential Total Cells Counted 100 Neutrophils % (Manual) 94 Band Neutrophils % 1 Monocytes % 4 Neutrophils # (Manual) 9.4 Myelocytes 1 Differential Comment FINAL DIFF MANUAL Platelet Estimate LOW Platelet Morphology Comment ENLARGED Reticulocyte Count 0.6 Absolute Reticulocyte Count 19.5 Blood Urea Nitrogen 36 Creatinine 1.06 Random Glucose 228 Total Protein 6.8 Calcium Level 6.8 Lactate Dehydrogenase 239 Sodium Level 141 Potassium Level 4.0 Chloride Level 109 Carbon Dioxide Level 25.5 Anion Gap 7 Estimat Glomerular Filtration Rate 69 Protein Corrected Calcium 7.0 Phenytoin (Dilantin) Level 5.0 Valproic Acid (Depakene) Level 30 Date/Time Source Procedure Growth Status 11/05/16 14:45 Blood Peripheral Aerobic Blood Culture - Preliminary NO GROWTH IN 2 DAYS Resulted 11/05/16 14:45 Blood Peripheral Anaerobic Blood Culture - Preliminary NO GROWTH IN 2 DAYS Resulted 10/26/16 13:00 Cerebral Spinal Fluid Lumbar Puncture Fungal Smear - Final NO FUNGAL ELEMENTS SEEN. Resulted 10/26/16 13:00 Cerebral Spinal Fluid Lumbar Puncture Fungal Culture - Preliminary NO GROWTH IN 1 WEEK Resulted 11/05/16 09:15 Sputum Endotracheal Gram Stain - Final Resulted 11/05/16 09:15 Sputum Culture - Preliminary Staphylococcus Aureus Gram Negative Gopi Resulted 11/06/16 03:00 Urine Catheterized Urine Urine Culture - Preliminary NO GROWTH IN 24 HOURS. Resulted Miguelito Branham PhD Nov 07, 2016 16:02
--- NOTE | 2016-11-07 16:25 | MG ---
cc: JONES AVALOS MD Lab No: [id number] Date: 11/07/2016 Age: 66 Sex: M Race: DATE OF : 1950 HISTORY: 66-year-old history of progressive mental status decline and agitation, unsteady gait. PROCEDURE: Appearance of stage II sleep at the beginning of the recording with generalized 1-3 Hz delta activity. By vertex waves with slight frontal sharp transients occurring in epoch 13, tiny left frontal sharp transient epoch 35, sharp bur bifrontal wave epoch 38, frontal sharp wave epoch 55. This appeared to be occurring during sleep state. Limited driving with photic stimulation. Single EKG showing sinus rhythm. INTERPRETATION Mainly sleep state, however, possible underlying at least mild level encephalopathy characterized by poorly formed sleep architecture however larger finding of paroxysmal isolated frontal sharp waves. However no active seizure activity. Clinical correlation. Jones Avalos MD MG/ /3:53 PM /4:15 PM
[2016-11-07] MEDS: PANTOPRAZOLE SODIUM 40 MG VIAL IV PUSH SCH (16:50)
--- NOTE | 2016-11-07 19:10 | PD.ONC.PN ---
Subjective Subjective Remarks at bedside, reports opens eyes more. Still very anxious for . Tolerated sedation titration yesterday, no seizure. Opened eyes spontaneously during exam. Objective Data Date Time Temp Pulse Resp B/P (MAP) Pulse Ox O2 Delivery O2 Flow Rate FiO2 11/07/16 18:00 78 11/07/16 16:01 96 35 11/07/16 16:00 76 11/07/16 16:00 99.2 76 16 120/67 (84) 95 11/07/16 16:00 35 11/07/16 14:00 77 11/07/16 12:48 97 35 11/07/16 12:00 60 11/07/16 12:00 99.0 83 16 127/73 (91) 94 11/07/16 12:00 83 11/07/16 11:00 97 60 11/07/16 10:00 86 11/07/16 09:05 100 35 11/07/16 08:00 81 11/07/16 08:00 35 11/07/16 08:00 98.6 81 16 119/68 (85) 100 11/07/16 06:00 81 11/07/16 05:01 100 35 11/07/16 04:00 35 11/07/16 04:00 99.4 83 16 119/67 (84) 100 11/07/16 04:00 83 11/07/16 02:00 88 11/07/16 00:13 97 35 11/07/16 00:00 99.2 77 16 125/67 (86) 97 11/07/16 00:00 70 11/07/16 00:00 35 11/06/16 22:00 77 11/06/16 21:10 99.3 79 18 113/60 (77) 96 11/06/16 20:29 80 22 111/60 11/06/16 20:09 96 Ventilator 35 11/06/16 20:09 96 35 11/06/16 20:00 35 11/06/16 20:00 79 11/06/16 20:00 99.3 79 16 108/58 (75) 96 11/07/16 11/07/16 11/07/16 06:59 14:59 22:59 Intake Total 1112 ml Output Total 1250 ml Balance -138 ml Result Diagram: 11/07/16 0601 11/07/16 0601 Laboratory Results Laboratory Tests Test 11/07/16 06:01 White Blood Count 9.8 TH/MM3 Red Blood Count 3.00 MIL/MM3 Hemoglobin 9.2 GM/DL Hematocrit 26.8 % Mean Corpuscular Volume 89.4 FL Mean Corpuscular Hemoglobin 30.6 PG Mean Corpuscular Hemoglobin Concent 34.2 % Red Cell Distribution Width 12.7 % Platelet Count 54 TH/MM3 Mean Platelet Volume 10.6 FL Neutrophils (%) (Auto) 93.0 % Lymphocytes (%) (Auto) 3.3 % Monocytes (%) (Auto) 3.6 % Eosinophils (%) (Auto) 0.0 % Basophils (%) (Auto) 0.1 % Neutrophils # (Auto) 9.1 TH/MM3 Lymphocytes # (Auto) 0.3 TH/MM3 Monocytes # (Auto) 0.3 TH/MM3 Eosinophils # (Auto) 0.0 TH/MM3 Basophils # (Auto) 0.0 TH/MM3 CBC Comment AUTO DIFF Differential Total Cells Counted 100 Neutrophils % (Manual) 94 % Band Neutrophils % 1 % Monocytes % 4 % Neutrophils # (Manual) 9.4 TH/MM3 Myelocytes 1 % Differential Comment FINAL DIFF MANUAL Platelet Estimate LOW Platelet Morphology Comment ENLARGED Reticulocyte Count 0.6 % Absolute Reticulocyte Count 19.5 MIL/L Blood Urea Nitrogen 36 MG/DL Creatinine 1.06 MG/DL Random Glucose 228 MG/DL Total Protein 6.8 GM/DL Calcium Level 6.8 MG/DL Lactate Dehydrogenase 239 U/L Sodium Level 141 MEQ/L Potassium Level 4.0 MEQ/L Chloride Level 109 MEQ/L Carbon Dioxide Level 25.5 MEQ/L Anion Gap 7 MEQ/L Estimat Glomerular Filtration Rate 69 ML/MIN Protein Corrected Calcium 7.0 MG/DL Phenytoin (Dilantin) Level 5.0 MCG/ML Valproic Acid (Depakene) Level 30 MCG/ML Culture Results Microbiology Date/Time Source Procedure Growth Status 11/05/16 14:45 Blood Peripheral Aerobic Blood Culture - Preliminary NO GROWTH IN 2 DAYS Resulted 11/05/16 14:45 Blood Peripheral Anaerobic Blood Culture - Preliminary NO GROWTH IN 2 DAYS Resulted 11/05/16 14:35 Blood Peripheral Aerobic Blood Culture - Preliminary Gram Negative Gopi Resulted 11/05/16 14:35 Blood Peripheral Anaerobic Blood Culture - Preliminary NO GROWTH IN 2 DAYS Resulted 11/05/16 09:15 Sputum Endotracheal Gram Stain - Final Resulted 11/05/16 09:15 Sputum Culture - Preliminary Staphylococcus Aureus Gram Negative Gopi Resulted 11/06/16 03:00 Urine Catheterized Urine Urine Culture - Preliminary NO GROWTH IN 24 HOURS. Resulted Imaging Studies Last 24 hours Impressions Chest X-Ray 11/07/16 0000 Signed Impressions: Service Date/Time: Monday, November 07, 2016 11:55 - CONCLUSION: 1. Subsegmental atelectasis both bases. There has been no significant change when compared to the prior exam. Kranthi Lloyd MD Brain MRI 11/07/16 0000 Signed Impressions: Service Date/Time: Monday, November 07, 2016 11:17 - CONCLUSION: 1. Continued subtle signal abnormality involving the pinto-white junction in the right occipital and right parietal regions. There has been no significant change when compared to the prior exam. Kranthi Lloyd MD Administered Medications Medications (Trade) Dose Ordered Sig/Alyssa Route PRN Reason Start Time Stop Time Status Last Admin Dose Admin Sodium Chloride (NS Flush) 2 ml BID IV FLUSH 10/25/16 09:00 11/07/16 08:59 Lorazepam (Ativan Inj) 1 mg Q6H PRN IV AGITATION 10/26/16 21:30 11/04/16 16:45 Enalaprilat (Vasotec Inj) 1.25 mg Q6H PRN IV PUSH SBP > 170 10/26/16 21:30 10/27/16 13:35 Clonidine (Catapres-Tts 0.1mg Patch.7d) 1 patch Q7D T-DERMAL 10/29/16 16:00 11/05/16 15:07 Miscellaneous Information 1 Q7D T-DERMAL 11/05/16 16:00 11/05/16 15:07 Lacosamide 100 mg/ Sodium Chloride 110 ml @ 110 mls/hr Q6H IV 11/01/16 15:00 11/07/16 15:04 Fosphenytoin Sodium (Cerebyx Inj) 100 mgpe Q6HR NEB IV 11/01/16 16:00 11/07/16 16:49 Chlorhexidine Gluconate (Peridex 0.12% Liq) 15 ml BID@08,20 MT 11/01/16 20:00 11/07/16 08:57 Midazolam HCl 100 ml @ 2 mls/hr TITRATE PRN IV SEDATION 11/01/16 12:30 11/06/16 20:28 Albuterol/ Ipratropium (Duoneb Neb) 1 ampule Q6HR NEB PRN NEB SHORTNESS OF BREATH 11/01/16 13:45 11/04/16 20:39 Docusate Sodium (Colace Liq) 100 mg Q12HR PO 11/01/16 21:00 11/07/16 08:47 Pantoprazole Sodium (Protonix Inj) 40 mg Q24H IV PUSH 11/01/16 16:00 11/07/16 16:50 Enoxaparin Sodium (Lovenox Inj) 40 mg Q24H SQ 11/02/16 09:00 Future hold 11/07/16 08:47 Methylprednisolone Sodium Succinate (SoluMEDROL INJ) 125 mg Q6H IV 11/03/16 20:00 11/07/16 13:43 Sodium Chloride 500 ml @ 500 mls/hr Q24H IV 11/03/16 20:00 11/07/16 20:59 11/06/16 20:00 Immune Globulin 40 gm/Syringe / Bag 400 ml @ 28.89 mls/ hr Q24H IV 11/03/16 21:00 11/08/16 10:51 11/06/16 20:29 Acetaminophen (Tylenol) 650 mg Q24H PO 11/03/16 20:00 11/07/16 20:01 11/06/16 20:29 Diphenhydramine HCl (Benadryl) 25 mg Q24H PO 11/03/16 20:00 11/07/16 20:01 11/06/16 20:28 Dextrose 500 ml @ 30 mls/hr Q24H IV 11/03/16 21:00 11/08/16 13:39 11/06/16 20:27 Albuterol/ Ipratropium (Duoneb Neb) 1 ampule Q6HR NEB NEB 11/05/16 10:00 11/07/16 15:57 Sennosides (Senna Liq) 8.8 mg DAILY PO 11/05/16 09:00 11/07/16 08:59 Lactulose (Lactulose Liq) 15 ml TID PO 11/05/16 09:00 11/07/16 13:43 Levofloxacin (Levaquin) 500 mg DAILY PO 11/05/16 09:00 11/07/16 08:58 Fentanyl Citrate 250 ml @ 5 mls/hr TITRATE PRN IV SEDATION 11/05/16 22:15 11/06/16 20:28 Insulin Detemir (Levemir Inj) 14 units Q12HR SQ 11/06/16 09:00 11/07/16 08:54 Cefepime HCl 2000 mg/Sodium Chloride 100 ml @ 200 mls/hr Q8H IV 11/06/16 18:00 11/07/16 17:52 Insulin Human Regular (NovoLIN R SUPPLEMENTAL SCALE) 1 Q6H SQ 11/07/16 11:00 11/07/16 16:50 Valproate Sodium 500 mg/Sodium Chloride 105 ml @ 105 mls/hr Q6HR IV 11/07/16 18:00 11/07/16 17:54 Objective Remarks GENERAL: Intubated, sedated male, supine in bed. SKIN: Warm and dry. HEAD: Normocephalic. EYES: No injection or drainage. NECK: Supple, trachea midline. CARDIOVASCULAR: Regular rate and rhythm RESPIRATORY: anterior stephen clear. on mechanical ventilation. GASTROINTESTINAL: Abdomen soft, nondistended. EXTREMITIES: No cyanosis. Trace edema both hands and feet. Feet in boot. NEUROLOGICAL: intubated, opens eyes to tactile stimulus. Assessment/Plan Problem List: (1) Thrombocytopenia ICD Codes: D69.6 - Thrombocytopenia, unspecified Plan: . Started on LMWH for superficial vein thrombosis of R UE. Platelet count improve. No bleeding. Retic low possible drug effect. Anemia but no transfusion needed. 11/06/16. Unlikely DC as fibrinogen increase. Renal function remain the same. Check LDH and retic. Suspect drug effect, suppression from antiseizure medication. Pt w/ new superficial thrombosis- cephalic vein thrombosis off LMWH, Resume LMWH, HIT antibody was negative. Transfuse platelets <20k and check post platelet transfusion count Discussed w/ rn ent. --?drug effect --has no significant hemolysis --LDH is only in the upper limits of normal at 332-->is unimpressive for hemolysis. --renal function is improving which argues against a hemolytic process. --peripheral smear review: does not support MONSERRAT (microangiopathic hemolysis) --Piyush test negative --coags/fibrinogen--> show mildly low fibrinogen, mildly prolonged PT, normal PTT. --HIT negative --no splenomegaly Assessment 66y/o male with thrombocytopenia, renal insufficiency suspicious for TTP/HUS. HPI( from initial consult): admitted on 10/24. He presented with dizziness. admitted to the psychiatric unit for SI and AMS. He was evaluated by neurology and Parkinson's and B12 deficiency is considered in the differential. His complements the history is suggesting that the mental status change has been acute in nature. He was subsequently transferred back to the medical floor. history of dyslipidemia, dysphasia, hypertension, diabetes. Imaging study, MRI of the brain showed no acute findings identified. VQ scan shows low probability for pulmonary embolism. Repeat brain MRI scan showed no acute intracranial process to produce the symptoms. Plan 1. HIT neg. 2. No transfusion 3. Continue Lovenox 4. Emotional support provided to . Deya Li MD Nov 07, 2016 19:10
--- NOTE | 2016-11-07 19:23 | HHI.PR ---
Subjective Remarks 66 YOWM with AMS, sz, renal insuff Intubated for airway protection Sedated with Versed at BS Opens eyes MRI Brain unchanged Objective Vital Signs Vital Signs Date Time Temp Pulse Resp B/P (MAP) Pulse Ox O2 Delivery O2 Flow Rate FiO2 11/07/16 18:00 78 11/07/16 16:01 96 35 11/07/16 16:00 76 11/07/16 16:00 99.2 76 16 120/67 (84) 95 11/07/16 16:00 35 11/07/16 14:00 77 11/07/16 12:48 97 35 11/07/16 12:00 60 11/07/16 12:00 99.0 83 16 127/73 (91) 94 11/07/16 12:00 83 11/07/16 11:00 97 60 11/07/16 10:00 86 11/07/16 09:05 100 35 11/07/16 08:00 81 11/07/16 08:00 35 11/07/16 08:00 98.6 81 16 119/68 (85) 100 11/07/16 06:00 81 11/07/16 05:01 100 35 11/07/16 04:00 35 11/07/16 04:00 99.4 83 16 119/67 (84) 100 11/07/16 04:00 83 11/07/16 02:00 88 11/07/16 00:13 97 35 11/07/16 00:00 99.2 77 16 125/67 (86) 97 11/07/16 00:00 70 11/07/16 00:00 35 11/06/16 22:00 77 11/06/16 21:10 99.3 79 18 113/60 (77) 96 11/06/16 20:29 80 22 111/60 11/06/16 20:09 96 Ventilator 35 11/06/16 20:09 96 35 11/06/16 20:00 35 11/06/16 20:00 79 11/06/16 20:00 99.3 79 16 108/58 (75) 96 I/O 11/06/16 11/06/16 11/06/16 11/07/16 11/07/16 11/07/16 07:00 15:00 23:00 07:00 15:00 23:00 Intake Total 3088 ml 1914 ml 1112 ml Output Total 1000 ml 1200 ml 1250 ml Balance 2088 ml 714 ml -138 ml IV Total 2033 ml 968 ml Tube Feeding 455 ml 946 ml 512 ml Other 600 ml 600 ml Output Urine Total 900 ml 1200 ml 1100 ml Stool Total 100 ml 150 ml Result Diagram: 11/07/1660011/07/16600 Objective Remarks GENERAL: WBWN male, unresponsive SKIN: Warm and dry. HEAD: Normocephalic. EYES: No scleral icterus. No injection or drainage. NECK: Supple, trachea midline. No JVD or lymphadenopathy. CARDIOVASCULAR: Regular rate and rhythm without murmurs, gallops, or rubs. RESPIRATORY: Breath sounds equal bilaterally. No accessory muscle use. GASTROINTESTINAL: Abdomen soft, non-tender, nondistended. MUSCULOSKELETAL: No cyanosis, or edema. BACK: Nontender without obvious deformity. No CVA tenderness. A/P Assessment and Plan AMS SZ disorder Renal insuff ? Cerebritis RF, on vent PLAN Vent Support Anti sz meds Monitor renal functions Neuro following pt. DW at BS Marya,Stanley Ramon MD Nov 07, 2016 19:22
[2016-11-07] MEDS: fentaNYL DRIP 250 ML IV PRN (19:41)
[2016-11-07] MEDS: DIPHENHYDRAMINE HCL 25 MG CAP Pre-med PO SCH (19:54)
[2016-11-07] MEDS: NS 500 ML Pre-hydration IV SCH (19:54)
[2016-11-07] MEDS: D5W as prime bag (IVIG as secondary) IV SCH (21:09)
[2016-11-07] MEDS: IMMUNE GLOBULIN INJ 40 GM in SYRINGE/BAG 1 EA IV SCH (21:10)
[2016-11-07] MEDS: MIDAZOLAM 100 MG/NS 100 ML DRIP Premix IV PRN (21:35)
[2016-11-08] VITALS (18 sets, daily range): BP systolic 128–156; BP diastolic 75–88; PULSE 69–109; RESP 16–22; TEMP 98.8–100.8; O2SAT 94–100
[2016-11-08] MEDS: VALPROATE INJ 500 MG in SODIUM CHLORIDE 0.9% INJ 100 ML IV SCH ×5 (00:30→23:39)
[2016-11-08] MEDS: CEFEPIME INJ 2,000 MG in SODIUM CHLORIDE 0.9% INJ 100 ML IV SCH ×3 (02:05→17:36)
[2016-11-08] MEDS: methylPREDNISolone SOD SUCC 125 MG/2 ML VIAL IV SCH ×4 (02:05→20:44)
[2016-11-08] MEDS: LACOSAMIDE INJ 100 MG in SODIUM CHLORIDE 0.9% INJ 100 ML IV SCH ×4 (03:37→20:48)
[2016-11-08] MEDS: RESP: ALBUTEROL 2.5 MG/IPRATROPIUM 0.5 MG NEB (SCH) NEB ×4 (03:43→20:42)
[2016-11-08] MEDS: FOSPHENYTOIN SODIUM 100 MG PE/2 ML VIAL IV SCH ×4 (04:06→22:02)
--- NOTE | 2016-11-08 05:16 | RADRPT ---
EXAM DATE/TIME: 11/08/2016 03:36 [facility] COMPARISON: CHEST SINGLE AP, November 07, 2016, 11:55. INDICATIONS : Short of breath. MEDICAL HISTORY : Hypercholesterolemia. Osteoarthritis. Gastroesophageal reflux disease. SURGICAL HISTORY : Umbilical hernia repair. Tonsillectomy. ENCOUNTER: Subsequent ACUITY: 1 month PAIN SCORE: 0/10 LOCATION: Bilateral chest FINDINGS: There is a stable ETT and NGT in the stomach. Lungs are hypoaerated with mild bibasilar airspace dise ase. Cardiomediastinal contours are stable. Remainder of the exam is unchanged. CONCLUSION: 1. Stable ETT and NGT. 2. Low lung volumes with mild bibasilar airspace disease, likely atelectasis. 3. No significant interval change. Humphrey Dudley MD on November 08, 2016 at 5:13 Board Certified Radiologist. This report was verified electronically.
[2016-11-08] MEDS: INSULIN NovoLIN REGULAR SUPPLEMENTAL SCALE SQ SCH ×4 (05:52→23:40)
[2016-11-08 06:23] LABS: AUTOMATED NEUTROPHIL # 11.4 TH/MM3 (1.8-7.7); BASOPHIL % 0.2 % (0.0-2.0); HEMATOCRIT 27.2 % (39.0-51.0); LYMPH % 2.8 % (9.0-44.0); LYMPHOCYTE # 0.3 TH/MM3 (1.0-4.8); MEAN CELL VOLUME 89.3 FL (80.0-100.0); MEAN CORPUSCULAR HEMOGLOBIN 29.6 PG (27.0-34.0); MEAN CORPUSCULAR HGB CONC 33.2 % (32.0-36.0); MONO % 2.8 % (0.0-8.0); NEUT % 94.2 % (16.0-70.0); PLATELET COUNT 81 TH/MM3 (150-450); RED BLOOD COUNT 3.05 MIL/MM3 (4.50-5.90); RED CELL DISTRIBUTION WIDTH 12.8 % (11.6-17.2); WHITE BLOOD COUNT 12.1 TH/MM3 (4.0-11.0)
[2016-11-08 06:33] LABS: HEMO FLAGS AUTO DIFF
[2016-11-08 07:29] LABS: BICARBONATE 24.1 MEQ/L (21.0-32.0); POTASSIUM 3.9 MEQ/L (3.5-5.1); TOTAL BILIRUBIN ADULT 0.3 MG/DL (0.2-1.0)
[2016-11-08 07:34] LABS: CALCIUM-PROTEIN CORRECTED 7.2 MG/DL (8.5-10.1)
[2016-11-08 08:13] LABS: BANDS 2 % (0-6); METAMYELOCYTES 1 % (0-1); MYELOCYTES 1 % (0-0); NEUTROPHIL # MANUAL DIFF 11.6 TH/MM3 (1.8-7.7); PLATELET ESTIMATE SMEAR LOW (NORMAL); PLATELET MORPHOLOGY NORMAL (NORMAL); POLYS (SEG NEUTROPHILS) 92 % (16-70); SCAN/DIFF FINAL DIFF MANUAL; WBC DIFF SAMPLE 100
[2016-11-08] MEDS: CHLORHEXIDINE 0.12% (ORAL KIT) 15 ML CUP MT SCH ×2 (08:41→20:44)
[2016-11-08] MEDS: LEVOFLOXACIN 500 MG TAB PO SCH (08:42)
[2016-11-08] MEDS: DOCUSATE SODIUM 100 MG/10 ML UDC PO SCH ×2 (08:42→20:44)
[2016-11-08] MEDS: SENNOSIDES SYRUP 8.8 MG/5 ML CUP PO SCH (08:42)
[2016-11-08] MEDS: LACTULOSE SYRUP 20 GM/30 ML CUP PO SCH ×3 (08:42→17:35)
[2016-11-08] MEDS: SODIUM CHLORIDE 0.9% FLUSH 10 ML FLUSH IV FLUSH SCH ×2 (08:43→20:44)
[2016-11-08] MEDS: ENOXAPARIN SODIUM 40 MG/0.4 ML SYRINGE SQ SCH (08:43)
[2016-11-08] MEDS: INSULIN DETEMIR 100 UNITS/ML VIAL SQ SCH ×2 (08:45→20:47)
[2016-11-08] MEDS ORDERED: CALCIUM GLUCONATE INJ 2 GM in SODIUM CHLORIDE 0.9% INJ 100 ML IV ONE (13:30)
--- NOTE | 2016-11-08 13:37 | HHI.CCPN ---
Subjective Remarks/Hospital Course Hospital Course: This is a 66-year-old man with history of diabetes, hypertension, dyslipidemia who about a month ago started having difficulty with balance with shuffling type of gait and resting tremor along with recent cognitive decline as well. His initial admission was on 10/06/16, as initial workup was negative patient was admitted to psych unit on 10/06/16 for suicidal ideations and altered mental status. He was evaluated by neurology Dr Branham, possibility of Parkinsonian symptoms and vitamin B 12 deficiency was entertained, but there was no improvement with treatment. He was re admitted to hospitalist service with worsening mental status on 10/25/16. Per Dr. Branham, MRI showed possible cerebritis. Differential included Creutzfeldt-Ministerio. But 14-3-3 protein for Creutzfeldt-Ministerio was negative. Currently on acyclovir for possibility of viral cerebritis. EEG done 10/24/16 showed generalized epileptiform activity. Patient was placed on Cerebyx, Keppra. Keppra was DCd due to rash and currently patient is on Cerebyx and Vimpat. Repeat EEGs from 10/31/16 and today shows continued seizure activity/subclinical seizures. Patient continues to be encephalopathic not responding. EEG today shows continued seizure activity indicating status epilepticus. Critical-care medicine was consulted by Dr. Branham today for continuous Versed infusion after intubation I evaluated the patient in ICU. He barely opens his eyes to painful stimuli localizes with right upper extremity withdrawal of any other extremities. Discussed with Dr. Branham multiple times. In his opinion, this appears to be a autoimmune encephalitis less likely to be infectious. Anti-NMDA receptor antibody ordered. Per Dr. Branham D/D possibly paraneoplastic, vasculitic or NMDA- receptor encephalitis. Currently patient is on IV Solu-Medrol and IVIG had been ordered by Dr. Branham. Initiate continuous EEG monitoring. TTP/HUS unlikely, but patient has E Coli UTI, I have asked for peripheral smear review by pathologist Subjective: 11/02: remains encephalopathic, but also very deeply sedated on versed drip. continuous EEG with intermittent sharp spikes that correspond with rhythmic neck movement. neurology adding additional anti-epileptics. peripheral smear without Schistocytes. currently receiving IVIG for possible auto-immune encephalopathy. 11/03 Patient remains sedated and intubated. Afebrile. 11/04 Patient remains intubated and sedated with Versed 10mg/hr. Tmax 100.6 11/05 No events overnight. On Versed drip for sedation, no seizures overnight. Patient is on continuous EEG monitoring. T: 101.0 last night. 11/06 Patient is sedated with Versed and Fentanyl. No seizures overnight. Afebrile. 11/07 Patient remains sedated and intubated. Afebrile. No recurrent seizures overnight. 11/08 TMax 99.6. The patient was noted to be on sedation vacation, EEG was being performed patient was noted to have subclinical seizures persistent. The patient was immediately bolused with 5 mg IV.Versed infusion continued at 8 mg/ h noted cessation of subclinical seizures and the patient continues to be monitored via EEG. Noted phenytoin and valproic acid levels were noted subtherapeutic today. Objective Vital Signs Date Time Temp Pulse Resp B/P (MAP) Pulse Ox O2 Delivery O2 Flow Rate FiO2 11/08/16 12:33 100 35 11/08/16 06:00 79 11/08/16 04:00 99.0 16 130/77 (94) 11/06/16 20:09 Ventilator Intake and Output 11/08/16 11/08/16 11/09/16 08:00 16:00 00:00 Intake Total 2197 ml Output Total 1650 ml Balance 547 ml Result Diagram: 11/08/16 0545 11/08/16 0545 Other Results Microbiology Date/Time Source Procedure Growth Status 11/06/16 03:00 Urine Catheterized Urine Urine Culture - Final NO GROWTH IN 48 HOURS. Complete Imaging Last Impressions Chest X-Ray 11/08/16 0000 Signed Impressions: Service Date/Time: Tuesday, November 08, 2016 03:36 - CONCLUSION: 1. Stable ETT and NGT. 2. Low lung volumes with mild bibasilar airspace disease, likely atelectasis. 3. No significant interval change. Humphrey Dudley MD Brain MRI 11/07/16 0000 Signed Impressions: Service Date/Time: Monday, November 07, 2016 11:17 - CONCLUSION: 1. Continued subtle signal abnormality involving the pinto-white junction in the right occipital and right parietal regions. There has been no significant change when compared to the prior exam. Kranthi Lloyd MD Upper Extremity Ultrasound 11/04/16 0000 Signed Impressions: Service Date/Time: Friday, November 04, 2016 18:24 - CONCLUSION: Occlusion of the cephalic vein. The other veins are patent. Everett Block MD Lower Extremity Ultrasound 11/03/16 0000 Signed Impressions: Service Date/Time: Thursday, November 03, 2016 15:19 - CONCLUSION: Negative for deep venous thrombosis. Rahat Frey MD FACR Chest CT 11/01/16 0000 Signed Impressions: Service Date/Time: Tuesday, November 01, 2016 15:59 - CONCLUSION: Minimal nonspecific adenopathy the bibasilar parenchymal changes worse on the left. Rahat Frey MD FACR Abdomen/Pelvis CT 11/01/16 0000 Signed Impressions: Service Date/Time: Tuesday, November 01, 2016 16:04 - CONCLUSION: Nonspecific minimal bowel wall thickening transverse colon. There are no ancillary signs of malignancy. Rahat Frey MD FACR Lumbar Puncture Fluoroscopy 10/26/16 0000 Signed Impressions: Service Date/Time: October 12:24 - CONCLUSION: Uncomplicated fluoroscopically guided cervical puncture. Kranthi Lloyd MD Last Impressions Chest X-Ray 11/05/16 0000 Signed Impressions: Service Date/Time: Saturday, November 05, 2016 09:29 - CONCLUSION: Interval development of atelectasis right lung base. Lemuel Eastman MD Upper Extremity Ultrasound 11/04/16 0000 Signed Impressions: Service Date/Time: Friday, November 04, 2016 18:24 - CONCLUSION: Occlusion of the cephalic vein. The other veins are patent. Everett Block MD Lower Extremity Ultrasound 11/03/16 0000 Signed Impressions: Service Date/Time: Thursday, November 03, 2016 15:19 - CONCLUSION: Negative for deep venous thrombosis. Rahat Frey MD FACR Chest CT 11/01/16 0000 Signed Impressions: Service Date/Time: Tuesday, November 01, 2016 15:59 - CONCLUSION: Minimal nonspecific adenopathy the bibasilar parenchymal changes worse on the left. Rahat Frey MD FACR Abdomen/Pelvis CT 11/01/16 0000 Signed Impressions: Service Date/Time: Tuesday, November 01, 2016 16:04 - CONCLUSION: Nonspecific minimal bowel wall thickening transverse colon. There are no ancillary signs of malignancy. Rahat Frey MD FACR Brain MRI 10/31/16 0000 Signed Impressions: Service Date/Time: Monday, October 31, 2016 10:51 - CONCLUSION: 1. Subtle signal abdomen only at the pinto-white junction in the right hemisphere as above. The findings may reflect encephalitis or cerebritis Kranthi Lloyd MD Lumbar Puncture Fluoroscopy 10/26/16 0000 Signed Impressions: Service Date/Time: October 12:24 - CONCLUSION: Uncomplicated fluoroscopically guided cervical puncture. Kranthi Lloyd MD Objective Remarks GENERAL: This is a middle-aged male, lying in bed, intubated, unresponsive and severely encephalopathic SKIN: Warm and dry. No lesions noted. HEENT: Normocephalic. Pupils equal 2 mm nonreactive. Disconjugate gaze CARDIOVASCULAR: Regular rate and rhythm. No murmur appreciated. RESPIRATORY: No accessory muscle use. Clear to auscultation. Breath sounds equal bilaterally. GASTROINTESTINAL: Abdomen soft, non-tender, nondistended. MUSCULOSKELETAL: No obvious deformities. No clubbing or cyanosis. No edema. NEUROLOGICAL: Deeply sedated on versed infusion. Patient is unresponsive. Pupils 2 mm millimeter unreactive with disconjugate gaze. Noted head and neck twitching in the right upper arm twitching. EEG monitoring underweight noted subclinical seizure activity currently. 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 The findings may reflect encephalitis or cerebritis -11/07 repeat MRI brain continued subtle signal abnormality involving pinto/white matter junction in right occiput total and right parietal regions. No change from previous MRI -11/08 Continuous EEG, noted subclinical seizures-resolution with deep sedation Versed 8 mg/hour - Continue IV Cerebyx 100mg Q6 Vimpat, Depakote. 11/08 Monitor levels Dilantin level: 5.0, Depakote level 30 11/05. Check levels today - Workup negative for infectious encephalitis including CJD - Ongoing workup for autoimmune encephalitis, anti-NMDA receptor antibody pending - Continue IV Solu-Medrol 125mg IV Q6 and IVIG per Dr. Branham - TTP/HUS unlikely given lack of schistocytes on peripheral smear 11/01 -Hold all sedation vacations per Dr. Branham, due to active seizure activity RESP: Acute hypoxic and hypercarbic respiratory failure - Intubated for failure to protect airway from status epilepticus - PRVC 16/550/5/IT;1 35%, and ICU vent bundle - DuoNeb every 6 hours and when necessary - HOLD SBT / CPAP trials at this time, maintain sedation secondary to active seizure activity -CXR 11/08: Atelectasis right lung base -ETT day 6, plan discussion with family regarding possible tracheostomy CV: -Monitor HR and BP keep MAP>65mmHg GI: - IV Protonix for GI prophylaxis -Continue tube feeds- Glucerna 1.5 @ 50ml/hr @ goal - Bowel Regimen : Acute kidney injury Hypocalcemia - Monitor renal function, electrolytes replacement as needed -2 g calcium gluconate IV ID: Encephalitis is probably noninfectious E Coli UTI Gram negative bacteremia Pneumonia Continue with abx (Cefepime, Levaquin) ID is following monitor for isgns of infections ( Fever, WBC) - Blood,sputum from 11/05: Escherichia coli, sputum cx 11/05: Escherichia coli, Staph Aureus, Enterobacter Aerogenes -Urine cx 11/06: Escherichia coli - TTP/HUS unlikely given negative peripheral smear for schistocytes -ID following-Dr. Mackay HEME: Thrombocytopenia - Monitor CBC, CMP, coags, Fibrinogen level 365 11/05, Heme is following -HIT panel is negative ENDO: Type 2 diabetes - Electrolyte replacement per protocol - Increase SSI (High scale) Levemir 14 units BID PROPH: - Bilateral lower extremity SCDs. Lovenox SQ -US RUE: Occlusion of the cephalic vein. Patient is at high risk for anticoagulation given thrombocytopenia -US LE b/L: No DVT - IV Protonix LINES: - Utilize peripheral IVs Dispo: Discussed with Mrs. Luong and updated her regarding patients current medical status. Continuation of obtaining therapuetic AED levels and reinitiation of CPAP trials. Level 3 Physician Leslie Hoffman MD Nov 08, 2016 13:37
--- NOTE | 2016-11-08 13:38 | PD.ONC.PN ---
Subjective Subjective Remarks Afebrile overnight. Patient undergoing EEG. Resting in nad, intubated. at bedside. Objective Data Date Time Temp Pulse Resp B/P (MAP) Pulse Ox O2 Delivery O2 Flow Rate FiO2 11/08/16 12:33 100 35 11/08/16 09:06 100 35 11/08/16 08:00 35 11/08/16 06:00 79 11/08/16 04:20 96 35 11/08/16 04:00 35 11/08/16 04:00 77 11/08/16 04:00 99.0 77 16 130/77 (94) 98 11/08/16 02:00 79 11/08/16 01:02 98 35 11/08/16 00:00 69 11/08/16 00:00 98.9 69 16 128/75 (92) 100 11/08/16 00:00 35 11/07/16 22:40 79 16 127/74 11/07/16 22:25 100 35 11/07/16 22:10 73 16 119/73 11/07/16 22:00 73 11/07/16 21:10 79 17 107/65 11/07/16 20:12 98 35 11/07/16 20:00 98.8 75 16 118/70 (86) 96 11/07/16 20:00 35 11/07/16 20:00 75 11/07/16 18:00 78 11/07/16 16:01 96 35 11/07/16 16:00 76 11/07/16 16:00 99.2 76 16 120/67 (84) 95 11/07/16 16:00 35 11/07/16 14:00 77 11/08/16 11/08/16 11/08/16 07:00 15:00 23:00 Intake Total 2197 ml Output Total 1650 ml Balance 547 ml Result Diagram: 11/08/16 0545 11/08/16 0545 Laboratory Results Laboratory Tests Test 11/08/16 05:45 White Blood Count 12.1 TH/MM3 Red Blood Count 3.05 MIL/MM3 Hemoglobin 9.0 GM/DL Hematocrit 27.2 % Mean Corpuscular Volume 89.3 FL Mean Corpuscular Hemoglobin 29.6 PG Mean Corpuscular Hemoglobin Concent 33.2 % Red Cell Distribution Width 12.8 % Platelet Count 81 TH/MM3 Mean Platelet Volume 10.0 FL Neutrophils (%) (Auto) 94.2 % Lymphocytes (%) (Auto) 2.8 % Monocytes (%) (Auto) 2.8 % Eosinophils (%) (Auto) 0.0 % Basophils (%) (Auto) 0.2 % Neutrophils # (Auto) 11.4 TH/MM3 Lymphocytes # (Auto) 0.3 TH/MM3 Monocytes # (Auto) 0.3 TH/MM3 Eosinophils # (Auto) 0.0 TH/MM3 Basophils # (Auto) 0.0 TH/MM3 CBC Comment AUTO DIFF Differential Total Cells Counted 100 Neutrophils % (Manual) 92 % Band Neutrophils % 2 % Lymphocytes % 3 % Monocytes % 1 % Neutrophils # (Manual) 11.6 TH/MM3 Metamyelocytes 1 % Myelocytes 1 % Differential Comment FINAL DIFF MANUAL Platelet Estimate LOW Platelet Morphology Comment NORMAL Red Cell Morphology Comment NORMAL Blood Urea Nitrogen 33 MG/DL Creatinine 0.90 MG/DL Random Glucose 200 MG/DL Total Protein 7.0 GM/DL Albumin 1.1 GM/DL Calcium Level 7.1 MG/DL Phosphorus Level 2.1 MG/DL Magnesium Level 2.0 MG/DL Alkaline Phosphatase 54 U/L Aspartate Amino Transf (AST/SGOT) 42 U/L Alanine Aminotransferase (ALT/SGPT) 64 U/L Total Bilirubin 0.3 MG/DL Sodium Level 138 MEQ/L Potassium Level 3.9 MEQ/L Chloride Level 106 MEQ/L Carbon Dioxide Level 24.1 MEQ/L Anion Gap 8 MEQ/L Estimat Glomerular Filtration Rate 84 ML/MIN Protein Corrected Calcium 7.2 MG/DL Culture Results Microbiology Date/Time Source Procedure Growth Status 11/05/16 14:45 Blood Peripheral Aerobic Blood Culture - Preliminary NO GROWTH IN 3 DAYS Resulted 11/05/16 14:45 Blood Peripheral Anaerobic Blood Culture - Preliminary NO GROWTH IN 3 DAYS Resulted 11/05/16 14:35 Blood Peripheral Aerobic Blood Culture - Final Escherichia Coli Resulted 11/05/16 14:35 Blood Peripheral Anaerobic Blood Culture - Preliminary NO GROWTH IN 3 DAYS Resulted 11/06/16 03:00 Urine Catheterized Urine Urine Culture - Final NO GROWTH IN 48 HOURS. Complete Imaging Studies Last 24 hours Impressions Chest X-Ray 11/08/16 0000 Signed Impressions: Service Date/Time: Tuesday, November 08, 2016 03:36 - CONCLUSION: 1. Stable ETT and NGT. 2. Low lung volumes with mild bibasilar airspace disease, likely atelectasis. 3. No significant interval change. Humphrey Dudley MD Administered Medications Medications (Trade) Dose Ordered Sig/Alyssa Route PRN Reason Start Time Stop Time Status Last Admin Dose Admin Sodium Chloride (NS Flush) 2 ml BID IV FLUSH 10/25/16 09:00 11/08/16 08:43 Lorazepam (Ativan Inj) 1 mg Q6H PRN IV AGITATION 10/26/16 21:30 11/04/16 16:45 Enalaprilat (Vasotec Inj) 1.25 mg Q6H PRN IV PUSH SBP > 170 10/26/16 21:30 10/27/16 13:35 Clonidine (Catapres-Tts 0.1mg Patch.7d) 1 patch Q7D T-DERMAL 10/29/16 16:00 11/05/16 15:07 Miscellaneous Information 1 Q7D T-DERMAL 11/05/16 16:00 11/05/16 15:07 Lacosamide 100 mg/ Sodium Chloride 110 ml @ 110 mls/hr Q6H IV 11/01/16 15:00 11/08/16 08:46 Fosphenytoin Sodium (Cerebyx Inj) 100 mgpe Q6HR NEB IV 11/01/16 16:00 11/08/16 08:54 Chlorhexidine Gluconate (Peridex 0.12% Liq) 15 ml BID@08,20 MT 11/01/16 20:00 11/08/16 08:41 Midazolam HCl 100 ml @ 2 mls/hr TITRATE PRN IV SEDATION 11/01/16 12:30 11/07/16 21:35 Albuterol/ Ipratropium (Duoneb Neb) 1 ampule Q6HR NEB PRN NEB SHORTNESS OF BREATH 11/01/16 13:45 11/04/16 20:39 Docusate Sodium (Colace Liq) 100 mg Q12HR PO 11/01/16 21:00 11/08/16 08:42 Pantoprazole Sodium (Protonix Inj) 40 mg Q24H IV PUSH 11/01/16 16:00 11/07/16 16:50 Enoxaparin Sodium (Lovenox Inj) 40 mg Q24H SQ 11/02/16 09:00 Future hold 11/08/16 08:43 Sodium Phosphate 30 mmol/Sodium Chloride 250 ml @ 42 mls/hr UNSCH PRN IV For Phosphorus < 2.5 mg/dL 11/01/16 14:00 11/08/16 08:48 Methylprednisolone Sodium Succinate (SoluMEDROL INJ) 125 mg Q6H IV 11/03/16 20:00 11/08/16 08:41 Dextrose 500 ml @ 30 mls/hr Q24H IV 11/03/16 21:00 11/08/16 13:39 11/07/16 21:09 Albuterol/ Ipratropium (Duoneb Neb) 1 ampule Q6HR NEB NEB 11/05/16 10:00 11/08/16 09:05 Sennosides (Senna Liq) 8.8 mg DAILY PO 11/05/16 09:00 11/08/16 08:42 Lactulose (Lactulose Liq) 15 ml TID PO 11/05/16 09:00 11/08/16 11:38 Levofloxacin (Levaquin) 500 mg DAILY PO 11/05/16 09:00 11/08/16 08:42 Fentanyl Citrate 250 ml @ 5 mls/hr TITRATE PRN IV SEDATION 11/05/16 22:15 11/07/16 19:41 Insulin Detemir (Levemir Inj) 14 units Q12HR SQ 11/06/16 09:00 11/08/16 08:45 Cefepime HCl 2000 mg/Sodium Chloride 100 ml @ 200 mls/hr Q8H IV 11/06/16 18:00 11/08/16 08:46 Insulin Human Regular (NovoLIN R SUPPLEMENTAL SCALE) 1 Q6H SQ 11/07/16 11:00 11/08/16 11:59 Valproate Sodium 500 mg/Sodium Chloride 105 ml @ 105 mls/hr Q6HR IV 11/07/16 18:00 11/08/16 11:38 Objective Remarks GENERAL: Intubated, sedated male, supine in bed. SKIN: Warm and dry. HEAD: Normocephalic. EYES: No injection or drainage. NECK: Supple, trachea midline. CARDIOVASCULAR: +S1/S2 RESPIRATORY: anterior stephen clear. on mechanical ventilation. GASTROINTESTINAL: Abdomen soft, nondistended. EXTREMITIES: No cyanosis. +edema, all extremities. NEUROLOGICAL: intubated, sedated Assessment/Plan Problem List: (1) Thrombocytopenia ICD Codes: D69.6 - Thrombocytopenia, unspecified Plan: 11/08/16: platelet count continuing to improve. tolerating low-dose Lovenox. 11/07/16. Started on LMWH for superficial vein thrombosis of R UE. Platelet count improve. No bleeding. Retic low possible drug effect. Anemia but no transfusion needed. 11/06/16. Unlikely DC as fibrinogen increase. Renal function remain the same. Check LDH and retic. Suspect drug effect, suppression from antiseizure medication. Pt w/ new superficial thrombosis- cephalic vein thrombosis off LMWH, Resume LMWH, HIT antibody was negative. Transfuse platelets <20k and check post platelet transfusion count Discussed w/ campground hand. --?drug effect --has no significant hemolysis --LDH is only in the upper limits of normal at 332-->is unimpressive for hemolysis. --renal function is improving which argues against a hemolytic process. --peripheral smear review: does not support MONSERRAT (microangiopathic hemolysis) --Piyush test negative --coags/fibrinogen--> show mildly low fibrinogen, mildly prolonged PT, normal PTT. --HIT negative --no splenomegaly Assessment 66y/o male with thrombocytopenia, renal insufficiency suspicious for TTP/HUS. HPI( from initial consult): admitted on 10/24. He presented with dizziness. admitted to the psychiatric unit for SI and AMS. He was evaluated by neurology and Parkinson's and B12 deficiency is considered in the differential. His complements the history is suggesting that the mental status change has been acute in nature. He was subsequently transferred back to the medical floor. history of dyslipidemia, dysphasia, hypertension, diabetes. Imaging study, MRI of the brain showed no acute findings identified. VQ scan shows low probability for pulmonary embolism. Repeat brain MRI scan showed no acute intracranial process to produce the symptoms. Plan 1. monitor CBC 2. supportive care Attending Statement The exam, history, and the medical decision-making described in the above note were completed with the assistance of the mid-level provider. I reviewed and agree with the findings presented. I attest that I had a [id number] encounter with the patient on the same day, and personally performed and documented my assessment and findings in the medical record. reported seizures off sedations, she did not witness any physical change. EEG monitoring continue. Clinically patient unchanged intubated sedated, mild swelling BL hands and feet noted. Platelets improving, hgb 9.0, LFT and Cr improving. Continue to DVT prophylaxis. Saira Celeste Nov 08, 2016 13:38 Deya Li MD Nov 08, 2016 19:21
[2016-11-08] MEDS: PANTOPRAZOLE SODIUM 40 MG VIAL IV PUSH SCH (15:03)
[2016-11-08] MEDS: MIDAZOLAM 100 MG/NS 100 ML DRIP Premix IV PRN ×2 (15:04→22:47)
[2016-11-08] MEDS: LORazepam 2 MG/ML VIAL IV PRN (17:34)
--- NOTE | 2016-11-08 17:37 | HHI.PR ---
Subjective Remarks 66 YOWM with AMS, sz, renal insuff Intubated for airway protection. Noted subclinical sz on stoping Versed Back on Sedation with Versed at BS MRI Brain unchanged Objective Vital Signs Vital Signs Date Time Temp Pulse Resp B/P (MAP) Pulse Ox O2 Delivery O2 Flow Rate FiO2 11/08/16 16:00 35 11/08/16 12:33 100 35 11/08/16 12:00 35 11/08/16 09:06 100 35 11/08/16 08:00 35 11/08/16 06:00 79 11/08/16 04:20 96 35 11/08/16 04:00 35 11/08/16 04:00 77 11/08/16 04:00 99.0 77 16 130/77 (94) 98 11/08/16 02:00 79 11/08/16 01:02 98 35 11/08/16 00:00 69 11/08/16 00:00 98.9 69 16 128/75 (92) 100 11/08/16 00:00 35 11/07/16 22:40 79 16 127/74 11/07/16 22:25 100 35 11/07/16 22:10 73 16 119/73 11/07/16 22:00 73 11/07/16 21:10 79 17 107/65 11/07/16 20:12 98 35 11/07/16 20:00 98.8 75 16 118/70 (86) 96 11/07/16 20:00 35 11/07/16 20:00 75 11/07/16 18:00 78 I/O 11/07/16 11/07/16 11/07/16 11/08/16 11/08/16 11/08/16 07:00 15:00 23:00 07:00 15:00 23:00 Intake Total 1112 ml 3771 ml 2197 ml Output Total 1250 ml 1375 ml 1650 ml Balance -138 ml 2396 ml 547 ml IV Total 1859 ml 1004 ml Tube Feeding 512 ml 1149 ml 593 ml Tube Irrigant 763 ml Other 600 ml 600 ml Output Urine Total 1100 ml 1175 ml 1250 ml Stool Total 150 ml 200 ml 400 ml Bladder Scan Volume Amount 585 ml Result Diagram: 11/08/16 0545 11/08/1645 Objective Remarks GENERAL: WBWN male, unresponsive SKIN: Warm and dry. HEAD: Normocephalic. EYES: No scleral icterus. No injection or drainage. NECK: Supple, trachea midline. No JVD or lymphadenopathy. CARDIOVASCULAR: Regular rate and rhythm without murmurs, gallops, or rubs. RESPIRATORY: Breath sounds equal bilaterally. No accessory muscle use. GASTROINTESTINAL: Abdomen soft, non-tender, nondistended. MUSCULOSKELETAL: No cyanosis, or edema. BACK: Nontender without obvious deformity. No CVA tenderness. A/P Assessment and Plan AMS SZ disorder Renal insuff ? Cerebritis RF, on vent PLAN Vent Support Anti sz meds per Neuro Monitor renal functions Neuro following pt. DW at Stanley Malhotra MD Nov 08, 2016 17:37
[2016-11-08] MEDS: ENALAPRILAT 1.25 MG/ML VIAL IV PUSH PRN (18:33)
[2016-11-08] MEDS: ACETAMINOPHEN SUSP 160 MG/5 ML UDC NG PRN (21:01)
[2016-11-09] VITALS (18 sets, daily range): BP systolic 98–130; BP diastolic 63–83; PULSE 86–106; RESP 16–18; TEMP 98.5–100.2; O2SAT 93–98
[2016-11-09] MEDS: CEFEPIME INJ 2,000 MG in SODIUM CHLORIDE 0.9% INJ 100 ML IV SCH ×3 (02:17→17:14)
[2016-11-09] MEDS: methylPREDNISolone SOD SUCC 125 MG/2 ML VIAL IV SCH ×4 (02:17→19:46)
[2016-11-09] MEDS: RESP: ALBUTEROL 2.5 MG/IPRATROPIUM 0.5 MG NEB (SCH) NEB ×2 (03:04→08:53)
[2016-11-09] MEDS: LACOSAMIDE INJ 100 MG in SODIUM CHLORIDE 0.9% INJ 100 ML IV SCH ×4 (03:13→21:29)
[2016-11-09 03:42] LABS: BLOOD GAS BASE EXCESS -2.1 mmol/L (-2-2); BLOOD GAS CARBOXYHEMOGLOBIN 1.2 % (0-4); BLOOD GAS HCO3 22 mmol/L (22-26); BLOOD GAS METHEMOGLOBIN 1.2 % (0-2); BLOOD GAS O2 HGB SATURATION 95 % (90-100); BLOOD GAS PCO2 32 mmHg (38-42); BLOOD GAS PO2 97 mmHg (61-120); BLOOD GAS TOTAL HGB 12.6 G/DL (12.0-16.0); CRITICAL VALUE NO; OXYGEN DEVICE VENTILATOR; TEMP CORR TO 98.6
[2016-11-09 03:43] LABS: DRAW SITE RT RADIAL; FIO2 45 %; NUMBER OF ARTERIAL PUNCTURES 1; STAT NO; ULNAR PULSE Y
[2016-11-09] MEDS: FOSPHENYTOIN SODIUM 100 MG PE/2 ML VIAL IV SCH ×3 (04:32→22:16)
--- NOTE | 2016-11-09 05:31 | MG ---
cc: JONES AVALOS MD Lab No: [id number] Date: 11/08/2016 Age: 66 Sex: M Race: EEG RECORD NUMBER [id number] DATE OF 1950 NOTE 66-year-old, intubated. FINDINGS Periodic frontal sharp waves occurring every 1-3 seconds with underlying 1-3 Hz delta activity, 20-75 microvolts. Single lead EKG - sinus rhythm. INTERPRETATION Generalized periodic frontal discharges. Clinical correlation. Jones Avalos MD MG/SSB /8:09 PM /5:24 AM
[2016-11-09] MEDS: VALPROATE INJ 500 MG in SODIUM CHLORIDE 0.9% INJ 100 ML IV SCH ×5 (05:37→23:52)
[2016-11-09] MEDS: INSULIN NovoLIN REGULAR SUPPLEMENTAL SCALE SQ SCH ×4 (06:00→23:51)
[2016-11-09 06:02] LABS: AUTOMATED NEUTROPHIL # 22.7 TH/MM3 (1.8-7.7); BASOPHIL % 0.1 % (0.0-2.0); HEMATOCRIT 33.3 % (39.0-51.0); LYMPH % 2.2 % (9.0-44.0); LYMPHOCYTE # 0.5 TH/MM3 (1.0-4.8); MEAN CELL VOLUME 90.3 FL (80.0-100.0); MEAN CORPUSCULAR HEMOGLOBIN 29.9 PG (27.0-34.0); MEAN CORPUSCULAR HGB CONC 33.1 % (32.0-36.0); MONO % 3.5 % (0.0-8.0); NEUT % 94.2 % (16.0-70.0); PLATELET COUNT 151 TH/MM3 (150-450); RED BLOOD COUNT 3.69 MIL/MM3 (4.50-5.90); RED CELL DISTRIBUTION WIDTH 12.9 % (11.6-17.2); WHITE BLOOD COUNT 24.1 TH/MM3 (4.0-11.0)
[2016-11-09 06:24] LABS: HEMO FLAGS AUTO DIFF
[2016-11-09 06:43] LABS: BICARBONATE 23.6 MEQ/L (21.0-32.0); MAGNESIUM 1.9 MG/DL (1.5-2.5); POTASSIUM 3.6 MEQ/L (3.5-5.1)
--- NOTE | 2016-11-09 06:49 | RADRPT ---
EXAM DATE/TIME: 11/09/2016 05:56 [facility] COMPARISON: CHEST SINGLE AP, November 08, 2016, 3:36. INDICATIONS : Respiratory status. MEDICAL HISTORY : None. SURGICAL HISTORY : None. ENCOUNTER: Subsequent ACUITY: 4 - 6 days PAIN SCORE: Non-responsive. LOCATION: Bilateral chest FINDINGS: Stable ETT and NGT. Lungs are hypoaerated with mild bibasilar airspace disease. Cardiomediastinal con tours are stable. Remainder of the exam is unchanged. CONCLUSION: 1. Stable ETT and NGT. 2. Stable low lung volumes with mild bibasilar airspace disease, likely atelectasis. 3. No significant interval change. Humphrey Dudley MD on November 09, 2016 at 6:46 Board Certified Radiologist. This report was verified electronically.
[2016-11-09 07:30] LABS: CALCIUM-PROTEIN CORRECTED 7.1 MG/DL (8.5-10.1)
[2016-11-09] MEDS: MIDAZOLAM 100 MG/NS 100 ML DRIP Premix IV PRN ×2 (07:59→17:15)
[2016-11-09] MEDS: SENNOSIDES SYRUP 8.8 MG/5 ML CUP PO SCH (08:00)
[2016-11-09] MEDS: DOCUSATE SODIUM 100 MG/10 ML UDC PO SCH ×2 (08:00→19:47)
[2016-11-09] MEDS: ENOXAPARIN SODIUM 40 MG/0.4 ML SYRINGE SQ SCH (08:00)
[2016-11-09] MEDS: LEVOFLOXACIN 500 MG TAB PO SCH (08:00)
[2016-11-09] MEDS: LACTULOSE SYRUP 20 GM/30 ML CUP PO SCH ×3 (08:00→17:14)
[2016-11-09] MEDS: SODIUM CHLORIDE 0.9% FLUSH 10 ML FLUSH IV FLUSH SCH ×2 (08:00→19:47)
[2016-11-09] MEDS: CHLORHEXIDINE 0.12% (ORAL KIT) 15 ML CUP MT SCH ×2 (08:01→19:47)
[2016-11-09] MEDS: INSULIN DETEMIR 100 UNITS/ML VIAL SQ SCH ×2 (08:03→21:30)
[2016-11-09 10:27] LABS: BANDS 5 % (0-6); METAMYELOCYTES 3 % (0-1); MYELOCYTES 3 % (0-0); NEUTROPHIL # MANUAL DIFF 24.1 TH/MM3 (1.8-7.7); POLYS (SEG NEUTROPHILS) 89 % (16-70); WBC DIFF SAMPLE 100
[2016-11-09 10:29] LABS: PLATELET ESTIMATE SMEAR NORMAL (NORMAL); PLATELET MORPHOLOGY NORMAL (NORMAL); SCAN/DIFF FINAL DIFF MANUAL
--- NOTE | 2016-11-09 10:30 | PD.ONC.PN ---
Subjective Subjective Remarks Tmax 100.7. Patient intubated, sedated. Objective Data Date Time Temp Pulse Resp B/P (MAP) Pulse Ox O2 Delivery O2 Flow Rate FiO2 11/09/16 10:00 90 11/09/16 08:00 98.5 90 18 111/68 (82) 97 11/09/16 08:00 90 11/09/16 08:00 35 11/09/16 07:38 97 35 11/09/16 06:00 93 11/09/16 04:36 96 45 11/09/16 04:00 100.0 93 16 98/63 (75) 96 11/09/16 04:00 93 11/09/16 04:00 35 11/09/16 02:00 96 11/09/16 00:27 93 45 11/09/16 00:00 100.2 106 16 117/83 (94) 94 11/09/16 00:00 35 11/09/16 00:00 106 11/08/16 22:00 108 11/08/16 20:42 94 35 11/08/16 20:00 109 11/08/16 20:00 35 11/08/16 20:00 100.7 109 22 147/88 (107) 95 11/08/16 18:00 100 11/08/16 17:49 94 35 11/08/16 16:00 35 11/08/16 16:00 93 11/08/16 16:00 100.3 93 16 156/88 (110) 95 11/08/16 14:00 89 11/08/16 12:33 100 35 11/08/16 12:00 98.8 88 19 155/82 (106) 99 11/08/16 12:00 88 11/08/16 12:00 35 11/09/16 11/09/16 11/09/16 07:00 15:00 23:00 Intake Total 854 ml Output Total 1850.0 ml Balance -996.0 ml Result Diagram: 11/09/1632 11/09/1632 Laboratory Results Laboratory Tests Test 11/09/16 03:25 11/09/16 05:32 Blood Gas Puncture Site RT RADIAL Blood Gas Patient Temperature 98.6 Blood Gas HCO3 22 mmol/L Blood Gas Base Excess -2.1 mmol/L Blood Gas Oxygen Saturation 95 % Arterial Blood pH 7.44 Arterial Blood Partial Pressure CO2 32 mmHg Arterial Blood Partial Pressure O2 97 mmHg Arterial Blood Oxygen Content 17.0 Vol % Arterial Blood Carboxyhemoglobin 1.2 % Arterial Blood Methemoglobin 1.2 % Blood Gas Hemoglobin 12.6 G/DL Oxygen Delivery Device VENTILATOR Blood Gas Ventilator Setting COMMENT Blood Gas Inspired Oxygen 45 % White Blood Count 24.1 TH/MM3 Red Blood Count 3.69 MIL/MM3 Hemoglobin 11.0 GM/DL Hematocrit 33.3 % Mean Corpuscular Volume 90.3 FL Mean Corpuscular Hemoglobin 29.9 PG Mean Corpuscular Hemoglobin Concent 33.1 % Red Cell Distribution Width 12.9 % Platelet Count 151 TH/MM3 Mean Platelet Volume 9.5 FL Neutrophils (%) (Auto) 94.2 % Lymphocytes (%) (Auto) 2.2 % Monocytes (%) (Auto) 3.5 % Eosinophils (%) (Auto) 0.0 % Basophils (%) (Auto) 0.1 % Neutrophils # (Auto) 22.7 TH/MM3 Lymphocytes # (Auto) 0.5 TH/MM3 Monocytes # (Auto) 0.8 TH/MM3 Eosinophils # (Auto) 0.0 TH/MM3 Basophils # (Auto) 0.0 TH/MM3 CBC Comment AUTO DIFF Blood Urea Nitrogen 46 MG/DL Creatinine 1.14 MG/DL Random Glucose 184 MG/DL Total Protein 6.7 GM/DL Calcium Level 6.9 MG/DL Phosphorus Level 3.6 MG/DL Magnesium Level 1.9 MG/DL Sodium Level 142 MEQ/L Potassium Level 3.6 MEQ/L Chloride Level 109 MEQ/L Carbon Dioxide Level 23.6 MEQ/L Anion Gap 9 MEQ/L Estimat Glomerular Filtration Rate 64 ML/MIN Protein Corrected Calcium 7.1 MG/DL Imaging Studies Last 24 hours Impressions Chest X-Ray 11/09/16 0600 Signed Impressions: Service Date/Time: November 05:56 - CONCLUSION: 1. Stable ETT and NGT. 2. Stable low lung volumes with mild bibasilar airspace disease, likely atelectasis. 3. No significant interval change. Humphrey Dudley MD Administered Medications Medications (Trade) Dose Ordered Sig/Alyssa Route PRN Reason Start Time Stop Time Status Last Admin Dose Admin Sodium Chloride (NS Flush) 2 ml BID IV FLUSH 10/25/16 09:00 11/09/16 08:00 Lorazepam (Ativan Inj) 1 mg Q6H PRN IV AGITATION 10/26/16 21:30 11/08/16 17:34 Enalaprilat (Vasotec Inj) 1.25 mg Q6H PRN IV PUSH SBP > 170 10/26/16 21:30 11/08/16 18:33 Clonidine (Catapres-Tts 0.1mg Patch.7d) 1 patch Q7D T-DERMAL 10/29/16 16:00 11/05/16 15:07 Miscellaneous Information 1 Q7D T-DERMAL 11/05/16 16:00 11/05/16 15:07 Lacosamide 100 mg/ Sodium Chloride 110 ml @ 110 mls/hr Q6H IV 11/01/16 15:00 11/09/16 08:45 Fosphenytoin Sodium (Cerebyx Inj) 100 mgpe Q6HR NEB IV 11/01/16 16:00 11/09/16 09:03 Chlorhexidine Gluconate (Peridex 0.12% Liq) 15 ml BID@08,20 MT 11/01/16 20:00 11/09/16 08:01 Midazolam HCl 100 ml @ 2 mls/hr TITRATE PRN IV SEDATION 11/01/16 12:30 11/09/16 07:59 Albuterol/ Ipratropium (Duoneb Neb) 1 ampule Q6HR NEB PRN NEB SHORTNESS OF BREATH 11/01/16 13:45 11/04/16 20:39 Docusate Sodium (Colace Liq) 100 mg Q12HR PO 11/01/16 21:00 11/09/16 08:00 Pantoprazole Sodium (Protonix Inj) 40 mg Q24H IV PUSH 11/01/16 16:00 11/08/16 15:03 Enoxaparin Sodium (Lovenox Inj) 40 mg Q24H SQ 11/02/16 09:00 Future hold 11/09/16 08:00 Sodium Phosphate 30 mmol/Sodium Chloride 250 ml @ 42 mls/hr UNSCH PRN IV For Phosphorus < 2.5 mg/dL 11/01/16 14:00 11/08/16 08:48 Acetaminophen (Tylenol 160 Mg/ 5 ml Liq) 325 mg Q6H PRN NG FEVERS OF 100.4F 8/30/17 14:00 11/08/16 21:01 Methylprednisolone Sodium Succinate (SoluMEDROL INJ) 125 mg Q6H IV 11/03/16 20:00 11/09/16 08:00 Sennosides (Senna Liq) 8.8 mg DAILY PO 11/05/16 09:00 11/09/16 08:00 Lactulose (Lactulose Liq) 15 ml TID PO 11/05/16 09:00 11/09/16 08:00 Levofloxacin (Levaquin) 500 mg DAILY PO 11/05/16 09:00 11/09/16 08:00 Fentanyl Citrate 250 ml @ 5 mls/hr TITRATE PRN IV SEDATION 11/05/16 22:15 11/07/16 19:41 Insulin Detemir (Levemir Inj) 14 units Q12HR SQ 11/06/16 09:00 11/09/16 08:03 Cefepime HCl 2000 mg/Sodium Chloride 100 ml @ 200 mls/hr Q8H IV 11/06/16 18:00 11/09/16 09:04 Insulin Human Regular (NovoLIN R SUPPLEMENTAL SCALE) 1 Q6H SQ 11/07/16 11:00 11/09/16 06:00 Valproate Sodium 500 mg/Sodium Chloride 105 ml @ 105 mls/hr Q6HR IV 11/07/16 18:00 11/09/16 05:37 Objective Remarks GENERAL: Intubated, sedated male. SKIN: Warm and dry. HEAD: Normocephalic. EYES: No injection or drainage. NECK: Supple, trachea midline. CARDIOVASCULAR: +S1/S2 RESPIRATORY: anterior stephen clear. on mechanical ventilation. GASTROINTESTINAL: Abdomen nondistended. EXTREMITIES: No cyanosis. ++extremities with edema. NEUROLOGICAL: intubated, sedated Assessment/Plan Problem List: (1) Thrombocytopenia ICD Codes: D69.6 - Thrombocytopenia, unspecified Plan: 11/09: platelet count now recovered. 11/08/16: platelet count continuing to improve. tolerating low-dose Lovenox. 11/07/16. Started on LMWH for superficial vein thrombosis of R UE. Platelet count improve. No bleeding. Retic low possible drug effect. Anemia but no transfusion needed. 11/06/16. Unlikely DC as fibrinogen increase. Renal function remain the same. Check LDH and retic. Suspect drug effect, suppression from antiseizure medication. Pt w/ new superficial thrombosis- cephalic vein thrombosis off LMWH, Resume LMWH, HIT antibody was negative. Transfuse platelets <20k and check post platelet transfusion count Discussed w/ marketing co op. --?drug effect --has no significant hemolysis --LDH is only in the upper limits of normal at 332-->is unimpressive for hemolysis. --renal function is improving which argues against a hemolytic process. --peripheral smear review: does not support MONSERRAT (microangiopathic hemolysis) --Piyush test negative --coags/fibrinogen--> show mildly low fibrinogen, mildly prolonged PT, normal PTT. --HIT negative --no splenomegaly Assessment 66y/o male with thrombocytopenia, renal insufficiency suspicious for TTP/HUS. HPI( from initial consult): admitted on 10/24. He presented with dizziness. admitted to the psychiatric unit for SI and AMS. He was evaluated by neurology and Parkinson's and B12 deficiency is considered in the differential. His complements the history is suggesting that the mental status change has been acute in nature. He was subsequently transferred back to the medical floor. history of dyslipidemia, dysphasia, hypertension, diabetes. Imaging study, MRI of the brain showed no acute findings identified. VQ scan shows low probability for pulmonary embolism. Repeat brain MRI scan showed no acute intracranial process to produce the symptoms. Plan 1. monitor CBC 2. supportive care 3. platelet counts have recovered. hematology will sign off. please call or reconsult if needed. Attending Statement The exam, history, and the medical decision-making described in the above note were completed with the assistance of the mid-level provider. I reviewed and agree with the findings presented. I attest that I had a [id number] encounter with the patient on the same day, and personally performed and documented my assessment and findings in the medical record. Pt seen and examined. Opens eyes spontaneously, no tracking, no response to tactile stimuli. beside, discussed platelet have recovered. Note no change in UE and LE edema, pt cont intubated and sedated. Noted also WBC elevated, fever and mild anemia. Platelets recovered, will sign off but will be available as needed. Saira Celeste Nov 09, 2016 10:30 Deya Li MD Nov 09, 2016 14:55
[2016-11-09] MEDS ORDERED: SODIUM CHLORID 0.9% 500 ML INJ 500 ML IV ONE ×2 (11:45→14:00)
--- NOTE | 2016-11-09 15:02 | HHI.CCPN ---
Subjective Remarks/Hospital Course Hospital Course: This is a 66-year-old man with history of diabetes, hypertension, dyslipidemia who about a month ago started having difficulty with balance with shuffling type of gait and resting tremor along with recent cognitive decline as well. His initial admission was on 10/06/16, as initial workup was negative patient was admitted to psych unit on 10/06/16 for suicidal ideations and altered mental status. He was evaluated by neurology Dr Branham, possibility of Parkinsonian symptoms and vitamin B 12 deficiency was entertained, but there was no improvement with treatment. He was re admitted to hospitalist service with worsening mental status on 10/25/16. Per Dr. Branham, MRI showed possible cerebritis. Differential included Creutzfeldt-Ministerio. But 14-3-3 protein for Creutzfeldt-Ministerio was negative. Currently on acyclovir for possibility of viral cerebritis. EEG done 10/24/16 showed generalized epileptiform activity. Patient was placed on Cerebyx, Keppra. Keppra was DCd due to rash and currently patient is on Cerebyx and Vimpat. Repeat EEGs from 10/31/16 and today shows continued seizure activity/subclinical seizures. Patient continues to be encephalopathic not responding. EEG today shows continued seizure activity indicating status epilepticus. Critical-care medicine was consulted by Dr. Branham today for continuous Versed infusion after intubation I evaluated the patient in ICU. He barely opens his eyes to painful stimuli localizes with right upper extremity withdrawal of any other extremities. Discussed with Dr. Branham multiple times. In his opinion, this appears to be a autoimmune encephalitis less likely to be infectious. Anti-NMDA receptor antibody ordered. Per Dr. Branham D/D possibly paraneoplastic, vasculitic or NMDA- receptor encephalitis. Currently patient is on IV Solu-Medrol and IVIG had been ordered by Dr. Branham. Initiate continuous EEG monitoring. TTP/HUS unlikely, but patient has E Coli UTI, I have asked for peripheral smear review by pathologist Subjective: 11/02: remains encephalopathic, but also very deeply sedated on versed drip. continuous EEG with intermittent sharp spikes that correspond with rhythmic neck movement. neurology adding additional anti-epileptics. peripheral smear without Schistocytes. currently receiving IVIG for possible auto-immune encephalopathy. 11/03 Patient remains sedated and intubated. Afebrile. 11/04 Patient remains intubated and sedated with Versed 10mg/hr. Tmax 100.6 11/05 No events overnight. On Versed drip for sedation, no seizures overnight. Patient is on continuous EEG monitoring. T: 101.0 last night. 11/06 Patient is sedated with Versed and Fentanyl. No seizures overnight. Afebrile. 11/07 Patient remains sedated and intubated. Afebrile. No recurrent seizures overnight. 11/08 TMax 99.6. The patient was noted to be on sedation vacation, EEG was being performed patient was noted to have subclinical seizures persistent. The patient was immediately bolused with 5 mg IV.Versed infusion continued at 8 mg/ h noted cessation of subclinical seizures and the patient continues to be monitored via EEG. Noted phenytoin and valproic acid levels were noted subtherapeutic today. 11/09 TMax 100.7. No further sedation holiday per Neurology due to ongoing subclinical seizure activity.the patient continues on AED's. AED levels pending in am.The patient remained on continuous EEG monitoring throughout the night with cessation of subclinical seizure activity. Objective Vital Signs Date Time Temp Pulse Resp B/P (MAP) Pulse Ox O2 Delivery O2 Flow Rate FiO2 11/09/16 12:00 90 11/09/16 12:00 98.7 18 111/68 (82) 97 11/09/16 12:00 35 11/06/16 20:09 Ventilator Intake and Output 11/09/16 11/09/16 11/09/16 07:59 15:59 23:59 Intake Total 854 ml Output Total 1850.0 ml Balance -996.0 ml Result Diagram: 11/09/16 0532 11/09/16 0532 Other Results Laboratory Tests Test 11/09/16 03:25 Blood Gas Puncture Site RT RADIAL Blood Gas Patient Temperature 98.6 Blood Gas HCO3 22 mmol/L (22-26) Blood Gas Base Excess -2.1 mmol/L (-2-2) Blood Gas Oxygen Saturation 95 % (90-100) Arterial Blood pH 7.44 (7.380-7.420) Arterial Blood Partial Pressure CO2 32 mmHg (38-42) Arterial Blood Partial Pressure O2 97 mmHg (61-120) Arterial Blood Oxygen Content 17.0 Vol % (12.0-20.0) Arterial Blood Carboxyhemoglobin 1.2 % (0-4) Arterial Blood Methemoglobin 1.2 % (0-2) Blood Gas Hemoglobin 12.6 G/DL (12.0-16.0) Oxygen Delivery Device VENTILATOR Blood Gas Ventilator Setting COMMENT Blood Gas Inspired Oxygen 45 % Imaging Last Impressions Chest X-Ray 11/09/16 0600 Signed Impressions: Service Date/Time: November 05:56 - CONCLUSION: 1. Stable ETT and NGT. 2. Stable low lung volumes with mild bibasilar airspace disease, likely atelectasis. 3. No significant interval change. Humphrey Dudley MD Brain MRI 11/07/16 0000 Signed Impressions: Service Date/Time: Monday, November 07, 2016 11:17 - CONCLUSION: 1. Continued subtle signal abnormality involving the pinto-white junction in the right occipital and right parietal regions. There has been no significant change when compared to the prior exam. Kranthi Lloyd MD Upper Extremity Ultrasound 11/04/16 0000 Signed Impressions: Service Date/Time: Friday, November 04, 2016 18:24 - CONCLUSION: Occlusion of the cephalic vein. The other veins are patent. Everett Block MD Lower Extremity Ultrasound 11/03/16 0000 Signed Impressions: Service Date/Time: Thursday, November 03, 2016 15:19 - CONCLUSION: Negative for deep venous thrombosis. Rahat Frey MD FACR Chest CT 11/01/16 0000 Signed Impressions: Service Date/Time: Tuesday, November 01, 2016 15:59 - CONCLUSION: Minimal nonspecific adenopathy the bibasilar parenchymal changes worse on the left. Rahat Frey MD FACR Abdomen/Pelvis CT 11/01/16 0000 Signed Impressions: Service Date/Time: Tuesday, November 01, 2016 16:04 - CONCLUSION: Nonspecific minimal bowel wall thickening transverse colon. There are no ancillary signs of malignancy. Rahat Frey MD FACR Lumbar Puncture Fluoroscopy 10/26/16 0000 Signed Impressions: Service Date/Time: October 12:24 - CONCLUSION: Uncomplicated fluoroscopically guided cervical puncture. Kranthi Lloyd MD Last Impressions Chest X-Ray 11/08/16 0000 Signed Impressions: Service Date/Time: Tuesday, November 08, 2016 03:36 - CONCLUSION: 1. Stable ETT and NGT. 2. Low lung volumes with mild bibasilar airspace disease, likely atelectasis. 3. No significant interval change. Humphrey Dudley MD Brain MRI 11/07/16 0000 Signed Impressions: Service Date/Time: Monday, November 07, 2016 11:17 - CONCLUSION: 1. Continued subtle signal abnormality involving the pinto-white junction in the right occipital and right parietal regions. There has been no significant change when compared to the prior exam. Kranthi Lloyd MD Upper Extremity Ultrasound 11/04/16 0000 Signed Impressions: Service Date/Time: Friday, November 04, 2016 18:24 - CONCLUSION: Occlusion of the cephalic vein. The other veins are patent. Everett Block MD Lower Extremity Ultrasound 11/03/16 0000 Signed Impressions: Service Date/Time: Thursday, November 03, 2016 15:19 - CONCLUSION: Negative for deep venous thrombosis. Rahat Frey MD FACR Chest CT 11/01/16 0000 Signed Impressions: Service Date/Time: Tuesday, November 01, 2016 15:59 - CONCLUSION: Minimal nonspecific adenopathy the bibasilar parenchymal changes worse on the left. Rahat Frey MD FACR Abdomen/Pelvis CT 11/01/16 0000 Signed Impressions: Service Date/Time: Tuesday, November 01, 2016 16:04 - CONCLUSION: Nonspecific minimal bowel wall thickening transverse colon. There are no ancillary signs of malignancy. Rahat Frey MD FACR Lumbar Puncture Fluoroscopy 10/26/16 0000 Signed Impressions: Service Date/Time: October 12:24 - CONCLUSION: Uncomplicated fluoroscopically guided cervical puncture. Kranthi Lloyd MD Last Impressions Chest X-Ray 11/05/16 0000 Signed Impressions: Service Date/Time: Saturday, November 05, 2016 09:29 - CONCLUSION: Interval development of atelectasis right lung base. Lemuel Eastman MD Upper Extremity Ultrasound 11/04/16 0000 Signed Impressions: Service Date/Time: Friday, November 04, 2016 18:24 - CONCLUSION: Occlusion of the cephalic vein. The other veins are patent. Everett Block MD Lower Extremity Ultrasound 11/03/16 0000 Signed Impressions: Service Date/Time: Thursday, November 03, 2016 15:19 - CONCLUSION: Negative for deep venous thrombosis. Rahat Frey MD FACR Chest CT 11/01/16 0000 Signed Impressions: Service Date/Time: Tuesday, November 01, 2016 15:59 - CONCLUSION: Minimal nonspecific adenopathy the bibasilar parenchymal changes worse on the left. Rahat Frey MD FACR Abdomen/Pelvis CT 11/01/16 0000 Signed Impressions: Service Date/Time: Tuesday, November 01, 2016 16:04 - CONCLUSION: Nonspecific minimal bowel wall thickening transverse colon. There are no ancillary signs of malignancy. Rahat Frey MD FACR Brain MRI 10/31/16 0000 Signed Impressions: Service Date/Time: Monday, October 31, 2016 10:51 - CONCLUSION: 1. Subtle signal abdomen only at the pinto-white junction in the right hemisphere as above. The findings may reflect encephalitis or cerebritis Kranthi Lloyd MD Lumbar Puncture Fluoroscopy 10/26/16 0000 Signed Impressions: Service Date/Time: October 12:24 - CONCLUSION: Uncomplicated fluoroscopically guided cervical puncture. Kranthi Lloyd MD Objective Remarks GENERAL: This is a well developed , well nourished middle-aged male, lying in bed, intubated, and sedated. SKIN: Warm and dry. No lesions noted. HEENT: Normocephalic. Pupils equal 2 mm reactive. orotracheally intubated CARDIOVASCULAR: Regular rate and rhythm. No murmur appreciated. RESPIRATORY: No accessory muscle use. Clear to auscultation. Breath sounds equal bilaterally. GASTROINTESTINAL: Abdomen soft, non-tender, nondistended. MUSCULOSKELETAL: No obvious deformities. No clubbing or cyanosis. No edema. NEUROLOGICAL: GCS 3T.Deeply sedated on versed infusion. Pupils 2 mm reactive. 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 The findings may reflect encephalitis or cerebritis -11/07 repeat MRI brain continued subtle signal abnormality involving pinto/white matter junction in right occiput total and right parietal regions. No change from previous MRI -11/08 Continuous EEG, noted subclinical seizures-resolution with deep sedation Versed 8 mg/hour - Continue IV Cerebyx 100mg Q6 Vimpat, Depakote. 11/08 Monitor levels Dilantin level: 5.0, Depakote level 30 11/05. Check levels today - Workup negative for infectious encephalitis including CJD - Ongoing workup for autoimmune encephalitis, anti-NMDA receptor antibody pending - Continue IV Solu-Medrol 125mg IV Q6 and IVIG per Dr. Branham - TTP/HUS unlikely given lack of schistocytes on peripheral smear 11/01 -11/08 Hold all sedation vacations per Dr. Branham,Neurology due to active seizure activity at this time, F/U AED levels in am RESP: Acute hypoxic and hypercarbic respiratory failure - Intubated for failure to protect airway from status epilepticus - PRVC 16/550/5/IT;1 35%, and ICU vent bundle - DuoNeb every 6 hours and when necessary - 11/08 HOLD SBT / CPAP trials at this time, maintain sedation secondary to active seizure activity -CXR 11/08: Atelectasis right lung base -ETT day plan discussion with regarding possible tracheostomy CV: -Monitor HR and BP keep MAP>65mmHg GI: - IV Protonix for GI prophylaxis -Continue tube feeds- Glucerna 1.5 @ 50ml/hr @ goal, minimal residuals - Bowel Regimen : Acute kidney injury Hypocalcemia - Monitor renal function, electrolytes replacement as needed -2 g calcium gluconate IV ID: Encephalitis is probably noninfectious E Coli UTI Gram negative bacteremia Pneumonia Continue with abx (Cefepime, Levaquin) ID is following monitor for isgns of infections ( Fever, WBC) - Blood,sputum from 11/05: Escherichia coli, sputum cx 11/05: Escherichia coli, Staph Aureus, Enterobacter Aerogenes -Urine cx 11/06: Escherichia coli - TTP/HUS unlikely given negative peripheral smear for schistocytes -ID following-Dr. Mackay HEME: Thrombocytopenia-resolved - Monitor CBC, CMP, coags, Fibrinogen level 365 11/05, Heme signed off 11/09 -HIT panel is negative ENDO: Type 2 diabetes - Electrolyte replacement per protocol - Increase SSI (High scale) Levemir 14 units BID PROPH: - Bilateral lower extremity SCDs. Lovenox SQ -US RUE: Occlusion of the cephalic vein. -US LE b/L: No DVT - IV Protonix LINES: - Utilize peripheral IVs Level 3 Physician Leslie Hoffman MD Nov 09, 2016 15:02
[2016-11-09] MEDS: PANTOPRAZOLE SODIUM 40 MG VIAL IV PUSH SCH (15:57)
--- NOTE | 2016-11-09 15:58 | HHI.PR ---
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 Differential includes possible anti-NMDA receptor encephalitis (antibody lab pending), paraneoplastic encephalitis Creutzfeldt-Juanjo in the differential. Plan increase phenytoin increase depacote follow up paraneoplastic antibodies and anti nmda antibody--I called lab and not yet ba recheck eeg recheck anticonvulsant levels tomorrow Diagnosis/Plan: Subjective Subjective Comments No acute events reported No sz--on fentanyl, versed, dph, depacon Active Medications Current Medications Medications (Trade) Dose Ordered Sig/Alyssa Route Start Time Stop Time Status Last Admin (NS Flush) 2 ml UNSCH PRN IV FLUSH 10/25/16 00:45 (NS Flush) 2 ml BID IV FLUSH 10/25/16 09:00 11/09/16 08:00 (Zofran Inj) 4 mg Q6H PRN IVP 10/25/16 00:45 (Narcan Inj) 0.4 mg UNSCH PRN IV 10/25/16 00:45 (Ativan Inj) 1 mg Q6H PRN IV 10/26/16 21:30 11/08/16 17:34 (Vasotec Inj) 1.25 mg Q6H PRN IV PUSH 10/26/16 21:30 11/08/16 18:33 (Catapres-Tts 0.1mg Patch.7d) 1 patch Q7D T-DERMAL 10/29/16 16:00 11/05/16 15:07 Miscellaneous Information 1 Q7D T-DERMAL 11/05/16 16:00 11/05/16 15:07 Lacosamide 100 mg/ Sodium Chloride 110 ml @ 110 mls/hr Q6H IV 11/01/16 15:00 11/09/16 08:45 (Cerebyx Inj) 100 mgpe Q6HR NEB IV 11/01/16 16:00 11/09/16 09:03 (Peridex 0.12% Liq) 15 ml BID@08,20 MT 11/01/16 20:00 11/09/16 08:01 Midazolam HCl 100 ml @ 2 mls/hr TITRATE PRN IV 11/01/16 12:30 11/09/16 07:59 (Duoneb Neb) 1 ampule Q6HR NEB PRN NEB 11/01/16 13:45 11/04/16 20:39 (Colace Liq) 100 mg Q12HR PO 11/01/16 21:00 11/09/16 08:00 (Protonix Inj) 40 mg Q24H IV PUSH 11/01/16 16:00 11/08/16 15:03 (Lovenox Inj) 40 mg Q24H SQ 11/02/16 09:00 Future hold 11/09/16 08:00 Potassium Chloride 100 ml @ 50 mls/hr Q2H PRN IV 11/01/16 14:00 Potassium Chloride 100 ml @ 50 mls/hr Q2H PRN IV 11/01/16 14:00 (K-Lyte Cl Eff) 50 meq UNSCH PRN PO 11/01/16 14:00 Potassium Chloride 100 ml @ 25 mls/hr UNSCH PRN IV 11/01/16 14:00 Potassium Chloride 100 ml @ 50 mls/hr Q2H PRN IV 11/01/16 14:00 Magnesium Sulfate 4 gm/Sodium Chloride 100 ml @ 50 mls/hr UNSCH PRN IV 11/01/16 14:00 (Mag-Ox) 800 mg UNSCH PRN PO 11/01/16 14:00 Magnesium Sulfate 2 gm/Sodium Chloride 100 ml @ 50 mls/hr UNSCH PRN IV 11/01/16 14:00 (K-Phos) 2,000 mg Q4H PRN PO 11/01/16 14:00 Sodium Phosphate 30 mmol/Sodium Chloride 250 ml @ 42 mls/hr UNSCH PRN IV 11/01/16 14:00 11/08/16 08:48 (K-Phos) 2,000 mg UNSCH PRN PO/TUBE 11/01/16 14:00 Potassium Phosphate 30 mmol/ Sodium Chloride 260 ml @ 42 mls/hr UNSCH PRN IV 11/01/16 14:00 (Tylenol 160 Mg/ 5 ml Liq) 325 mg Q6H PRN NG 11/01/16 14:00 11/08/16 21:01 (SoluMEDROL INJ) 125 mg Q6H IV 11/03/16 20:00 11/09/16 08:00 (Senna Liq) 8.8 mg DAILY PO 11/05/16 09:00 11/09/16 08:00 (Lactulose Liq) 15 ml TID PO 11/05/16 09:00 11/09/16 13:00 (Levaquin) 500 mg DAILY PO 11/05/16 09:00 11/09/16 08:00 Fentanyl Citrate 250 ml @ 5 mls/hr TITRATE PRN IV 11/05/16 22:15 11/07/16 19:41 (Levemir Inj) 14 units Q12HR SQ 11/06/16 09:00 11/09/16 08:03 Cefepime HCl 2000 mg/Sodium Chloride 100 ml @ 200 mls/hr Q8H IV 11/06/16 18:00 11/09/16 09:04 (D50w (Vial) Inj) 50 ml UNSCH PRN IV 11/07/16 09:30 (Glucagon Inj) 1 mg UNSCH PRN OTHER 11/07/16 09:30 (NovoLIN R SUPPLEMENTAL SCALE) 1 Q6H SQ 11/07/16 11:00 11/09/16 10:17 Valproate Sodium 500 mg/Sodium Chloride 105 ml @ 105 mls/hr Q6HR IV 11/07/16 18:00 11/09/16 11:41 Calcium Gluconate 2 gm/Sodium Chloride 120 ml @ 120 mls/hr ONCE ONCE IV 11/09/16 16:00 11/09/16 16:59 Allergies Allergies Coded Allergies penicillin G (Unverified Allergy, Severe, 10/17/16) Review of Systems All other ROS: ROS reviewed as documented in chart Exam I&O / VS Vital Signs Date Time Temp Pulse Resp B/P (MAP) Pulse Ox O2 Delivery O2 Flow Rate FiO2 11/09/16 12:00 90 11/09/16 12:00 98.7 90 18 111/68 (82) 97 11/09/16 12:00 89 11/09/16 12:00 35 11/09/16 12:00 98.7 89 16 119/70 (86) 94 11/09/16 11:04 97 35 11/09/16 10:00 90 11/09/16 08:00 98.5 90 18 111/68 (82) 97 11/09/16 08:00 90 11/09/16 08:00 35 11/09/16 07:38 97 35 11/09/16 06:00 93 11/09/16 04:36 96 45 11/09/16 04:00 100.0 93 16 98/63 (75) 96 11/09/16 04:00 93 11/09/16 04:00 35 11/09/16 02:00 96 11/09/16 00:27 93 45 11/09/16 00:00 100.2 106 16 117/83 (94) 94 11/09/16 00:00 35 11/09/16 00:00 106 11/08/16 22:00 108 11/08/16 20:42 94 35 11/08/16 20:00 109 11/08/16 20:00 35 11/08/16 20:00 100.7 109 22 147/88 (107) 95 11/08/16 18:00 100 11/08/16 17:49 94 35 11/08/16 16:00 35 11/08/16 16:00 93 11/08/16 16:00 100.3 93 16 156/88 (110) 95 Exam Comments Intubated and on versed. fentanyl--nonresponsive CN--PERRL, MOTOR--no focal deficit.No clinical sz activity Objective Micro and Labs Laboratory Tests Test 11/09/16 03:25 11/09/16 05:32 Blood Gas Puncture Site RT RADIAL Blood Gas Patient Temperature 98.6 Blood Gas HCO3 22 Blood Gas Base Excess -2.1 Blood Gas Oxygen Saturation 95 Arterial Blood pH 7.44 Arterial Blood Partial Pressure CO2 32 Arterial Blood Partial Pressure O2 97 Arterial Blood Oxygen Content 17.0 Arterial Blood Carboxyhemoglobin 1.2 Arterial Blood Methemoglobin 1.2 Blood Gas Hemoglobin 12.6 Oxygen Delivery Device VENTILATOR Blood Gas Ventilator Setting COMMENT Blood Gas Inspired Oxygen 45 White Blood Count 24.1 Red Blood Count 3.69 Hemoglobin 11.0 Hematocrit 33.3 Mean Corpuscular Volume 90.3 Mean Corpuscular Hemoglobin 29.9 Mean Corpuscular Hemoglobin Concent 33.1 Red Cell Distribution Width 12.9 Platelet Count 151 Mean Platelet Volume 9.5 Neutrophils (%) (Auto) 94.2 Lymphocytes (%) (Auto) 2.2 Monocytes (%) (Auto) 3.5 Eosinophils (%) (Auto) 0.0 Basophils (%) (Auto) 0.1 Neutrophils # (Auto) 22.7 Lymphocytes # (Auto) 0.5 Monocytes # (Auto) 0.8 Eosinophils # (Auto) 0.0 Basophils # (Auto) 0.0 CBC Comment AUTO DIFF Differential Total Cells Counted 100 Neutrophils % (Manual) 89 Band Neutrophils % 5 Neutrophils # (Manual) 24.1 Metamyelocytes 3 Myelocytes 3 Differential Comment FINAL DIFF MANUAL Platelet Estimate NORMAL Platelet Morphology Comment NORMAL Red Cell Morphology Comment NORMAL Blood Urea Nitrogen 46 Creatinine 1.14 Random Glucose 184 Total Protein 6.7 Calcium Level 6.9 Phosphorus Level 3.6 Magnesium Level 1.9 Sodium Level 142 Potassium Level 3.6 Chloride Level 109 Carbon Dioxide Level 23.6 Anion Gap 9 Estimat Glomerular Filtration Rate 64 Protein Corrected Calcium 7.1 Date/Time Source Procedure Growth Status 11/05/16 14:45 Blood Peripheral Aerobic Blood Culture - Preliminary NO GROWTH IN 4 DAYS Resulted 11/05/16 14:45 Blood Peripheral Anaerobic Blood Culture - Preliminary NO GROWTH IN 4 DAYS Resulted 10/26/16 13:00 Cerebral Spinal Fluid Lumbar Puncture Fungal Smear - Final NO FUNGAL ELEMENTS SEEN. Resulted 10/26/16 13:00 Cerebral Spinal Fluid Lumbar Puncture Fungal Culture - Preliminary NO GROWTH IN 2 WEEKS Resulted 11/05/16 09:15 Sputum Endotracheal Gram Stain - Final Complete 11/05/16 09:15 Sputum Culture - Final Staphylococcus Aureus Escherichia Coli Enterobacter Aerogenes Complete 11/06/16 03:00 Urine Catheterized Urine Urine Culture - Final NO GROWTH IN 48 HOURS. Complete Miguelito Branham PhD Nov 09, 2016 15:58
[2016-11-09] MEDS ORDERED: CALCIUM GLUCONATE INJ 2 GM in SODIUM CHLORIDE 0.9% INJ 100 ML IV ONE (16:00)
--- NOTE | 2016-11-09 16:37 | HHI.PR ---
Subjective Remarks 66 YOWM with AMS, sz, renal insuff Intubated for airway protection. Noted subclinical sz on stoping Versed Back on Sedation with Versed 10 mg /hr at BS Objective Vital Signs Vital Signs Date Time Temp Pulse Resp B/P (MAP) Pulse Ox O2 Delivery O2 Flow Rate FiO2 11/09/16 12:00 90 11/09/16 12:00 98.7 90 18 111/68 (82) 97 11/09/16 12:00 89 11/09/16 12:00 35 11/09/16 12:00 98.7 89 16 119/70 (86) 94 11/09/16 11:04 97 35 11/09/16 10:00 90 11/09/16 08:00 98.5 90 18 111/68 (82) 97 11/09/16 08:00 90 11/09/16 08:00 35 11/09/16 07:38 97 35 11/09/16 06:00 93 11/09/16 04:36 96 45 11/09/16 04:00 100.0 93 16 98/63 (75) 96 11/09/16 04:00 93 11/09/16 04:00 35 11/09/16 02:00 96 11/09/16 00:27 93 45 11/09/16 00:00 100.2 106 16 117/83 (94) 94 11/09/16 00:00 35 11/09/16 00:00 106 11/08/16 22:00 108 11/08/16 20:42 94 35 11/08/16 20:00 109 11/08/16 20:00 35 11/08/16 20:00 100.7 109 22 147/88 (107) 95 11/08/16 18:00 100 11/08/16 17:49 94 35 I/O 11/08/16 11/08/16 11/08/16 11/09/16 11/09/16 11/09/16 07:00 15:00 23:00 07:00 15:00 23:00 Intake Total 2197 ml 450 ml 1763 ml 854 ml Output Total 1650 ml 1255 ml 1850.0 ml Balance 547 ml 450 ml 508 ml -996.0 ml IV Total 1004 ml 450 ml 525 ml 309 ml Tube Feeding 593 ml 638 ml 245 ml Other 600 ml 600 ml 300 ml Output Urine Total 1250 ml 1225 ml 450 ml Stool Total 400 ml 30 ml 1200 ml Tube Feeding Residual Discard 200.0 ml Result Diagram: 11/09/1653111/09/16531 Objective Remarks GENERAL: WBWN male, unresponsive SKIN: Warm and dry. HEAD: Normocephalic. EYES: No scleral icterus. No injection or drainage. NECK: Supple, trachea midline. No JVD or lymphadenopathy. CARDIOVASCULAR: Regular rate and rhythm without murmurs, gallops, or rubs. RESPIRATORY: Breath sounds equal bilaterally. No accessory muscle use. GASTROINTESTINAL: Abdomen soft, non-tender, nondistended. MUSCULOSKELETAL: No cyanosis, or edema. BACK: Nontender without obvious deformity. No CVA tenderness. A/P Assessment and Plan AMS SZ disorder Renal insuff ? Cerebritis RF, on vent PLAN Vent Support Anti sz meds per Neuro Monitor renal functions Neuro following pt. DW at BS Sedation with versed Stanley Malhotra MD Nov 09, 2016 16:37
--- NOTE | 2016-11-09 17:57 | MG ---
cc: JONES AVALOS MD Lab No: [id number] Date: 11/09/2016 Age: 66 Sex: M Race: DATE OF : 1950 HISTORY: A 66-year-old, mental status changes, intubated on Versed 10 mg. PROCEDURE: Generalized 1-2 Hz delta activity occurring 10-40 microvolts. Occasional low voltage pseudo periodic waves with slightly higher voltage around epoch 42 occurring every 1 to 5 seconds, followed by retraction of amplitude, some voltage close to the end, single EKG showing sinus rhythm. INTERPRETATION Severe encephalopathy, pseudo periodic frontal discharges less rhythmic with reduced voltage improvement from previous EEG. EEG pattern can be seen after post cardiac arrest, anoxic injury, hyperperfusion injury, generalized epilepsy. In the spongiform encephalopathy. Clinical correlation. MD FAUSTINO Elliott/ /5:35 PM /5:48 PM
[2016-11-10] VITALS (19 sets, daily range): BP systolic 94–121; BP diastolic 60–73; PULSE 87–99; RESP 16–18; TEMP 97.6–99.3; O2SAT 94–100
[2016-11-10] MEDS: CEFEPIME INJ 2,000 MG in SODIUM CHLORIDE 0.9% INJ 100 ML IV SCH ×3 (02:13→17:01)
[2016-11-10] MEDS: methylPREDNISolone SOD SUCC 125 MG/2 ML VIAL IV SCH ×4 (02:13→19:54)
[2016-11-10] MEDS: LACOSAMIDE INJ 100 MG in SODIUM CHLORIDE 0.9% INJ 100 ML IV SCH ×4 (03:29→20:52)
[2016-11-10] MEDS: VALPROATE INJ 500 MG in SODIUM CHLORIDE 0.9% INJ 100 ML IV SCH ×5 (04:25→19:55)
[2016-11-10] MEDS: MIDAZOLAM 100 MG/NS 100 ML DRIP Premix IV PRN ×3 (04:26→22:27)
[2016-11-10] MEDS: FOSPHENYTOIN SODIUM 100 MG PE/2 ML VIAL IV SCH ×3 (05:48→22:22)
[2016-11-10] MEDS: INSULIN NovoLIN REGULAR SUPPLEMENTAL SCALE SQ SCH ×4 (05:49→22:57)
[2016-11-10 06:13] LABS: AUTOMATED NEUTROPHIL # 17.9 TH/MM3 (1.8-7.7); BASOPHIL % 0.1 % (0.0-2.0); HEMATOCRIT 30.4 % (39.0-51.0); LYMPH % 3.2 % (9.0-44.0); LYMPHOCYTE # 0.6 TH/MM3 (1.0-4.8); MEAN CORPUSCULAR HEMOGLOBIN 29.4 PG (27.0-34.0); MEAN CORPUSCULAR HGB CONC 32.7 % (32.0-36.0); MONO % 3.2 % (0.0-8.0); NEUT % 93.5 % (16.0-70.0); PLATELET COUNT 151 TH/MM3 (150-450); RED BLOOD COUNT 3.38 MIL/MM3 (4.50-5.90); WHITE BLOOD COUNT 19.2 TH/MM3 (4.0-11.0)
[2016-11-10 06:31] LABS: HEMO FLAGS AUTO DIFF
[2016-11-10 06:44] LABS: BICARBONATE 24.1 MEQ/L (21.0-32.0); MAGNESIUM 2.1 MG/DL (1.5-2.5); POTASSIUM 3.6 MEQ/L (3.5-5.1)
[2016-11-10] MEDS: ENOXAPARIN SODIUM 40 MG/0.4 ML SYRINGE SQ SCH (08:00)
[2016-11-10] MEDS: CHLORHEXIDINE 0.12% (ORAL KIT) 15 ML CUP MT SCH ×2 (08:00→19:55)
[2016-11-10] MEDS: LEVOFLOXACIN 500 MG TAB PO SCH (08:01)
[2016-11-10] MEDS: INSULIN DETEMIR 100 UNITS/ML VIAL SQ SCH ×2 (08:01→20:54)
[2016-11-10] MEDS: DOCUSATE SODIUM 100 MG/10 ML UDC PO SCH ×2 (08:02→19:54)
[2016-11-10] MEDS: SENNOSIDES SYRUP 8.8 MG/5 ML CUP PO SCH (08:02)
[2016-11-10] MEDS: LACTULOSE SYRUP 20 GM/30 ML CUP PO SCH ×3 (08:03→17:01)
[2016-11-10] MEDS: SODIUM CHLORIDE 0.9% FLUSH 10 ML FLUSH IV FLUSH SCH ×2 (09:00→19:56)
[2016-11-10 09:16] LABS: BANDS 6 % (0-6); METAMYELOCYTES 2 % (0-1); NEUTROPHIL # MANUAL DIFF 18.2 TH/MM3 (1.8-7.7); POLYS (SEG NEUTROPHILS) 87 % (16-70); WBC DIFF SAMPLE 100
[2016-11-10 09:18] LABS: PLATELET ESTIMATE SMEAR NORMAL (NORMAL); PLATELET MORPHOLOGY NORMAL (NORMAL); SCAN/DIFF FINAL DIFF MANUAL
--- NOTE | 2016-11-10 10:27 | HHI.PR ---
Subjective Remarks 66 YOWM with AMS, sz, renal insuff Intubated for airway protection. Noted subclinical sz on stoping Versed Back on Sedation with Versed 10 mg /hr at BS On Fi02 35% Objective Vital Signs Vital Signs Date Time Temp Pulse Resp B/P (MAP) Pulse Ox O2 Delivery O2 Flow Rate FiO2 11/10/16 09:34 94 35 11/10/16 08:00 35 11/10/16 08:00 91 11/10/16 08:00 99.0 91 17 115/73 (87) 96 11/10/16 06:00 96 11/10/16 04:12 97 35 11/10/16 04:00 99.0 91 17 115/73 (87) 96 11/10/16 04:00 91 11/10/16 04:00 35 11/10/16 02:00 87 11/10/16 00:18 94 35 11/10/16 00:00 35 11/10/16 00:00 92 11/10/16 00:00 98.8 92 18 94/61 (72) 95 11/09/16 22:00 96 11/09/16 21:13 94 35 11/09/16 20:00 92 11/09/16 20:00 35 11/09/16 20:00 98.9 92 17 130/68 (88) 94 11/09/16 18:00 91 11/09/16 16:41 98 35 11/09/16 16:00 35 11/09/16 16:00 88 11/09/16 16:00 98.5 88 18 122/73 (89) 96 11/09/16 14:00 86 11/09/16 12:00 90 11/09/16 12:00 98.7 90 18 111/68 (82) 97 11/09/16 12:00 89 11/09/16 12:00 35 11/09/16 12:00 98.7 89 16 119/70 (86) 94 11/09/16 11:04 97 35 I/O 11/09/16 11/09/16 11/09/16 11/10/16 11/10/16 11/10/16 06:59 14:59 22:59 06:59 14:59 22:59 Intake Total 964 ml 710 ml 1706 ml 1770 ml Output Total 1850.0 ml 850 ml 1200 ml Balance -886.0 ml 710 ml 856 ml 570 ml IV Total 419 ml 710 ml 530 ml 540 ml Tube Feeding 245 ml 576 ml 630 ml Other 300 ml 600 ml 600 ml Output Urine Total 450 ml 650 ml 800 ml Stool Total 1200 ml 200 ml 400 ml Tube Feeding Residual Discard 200.0 ml Result Diagram: 11/10/16 0545 11/10/16 0548 Objective Remarks GENERAL: WBWN male, unresponsive SKIN: Warm and dry. HEAD: Normocephalic. EYES: No scleral icterus. No injection or drainage. NECK: Supple, trachea midline. No JVD or lymphadenopathy. CARDIOVASCULAR: Regular rate and rhythm without murmurs, gallops, or rubs. RESPIRATORY: Breath sounds equal bilaterally. No accessory muscle use. GASTROINTESTINAL: Abdomen soft, non-tender, nondistended. MUSCULOSKELETAL: No cyanosis, or edema. BACK: Nontender without obvious deformity. No CVA tenderness. A/P Assessment and Plan AMS SZ disorder Renal insuff ? Cerebritis RF, on vent PLAN Vent Support Anti sz meds per Neuro Monitor renal functions Neuro following pt. DW at BS Sedation with versed Dr Mckeon covering until sunday Stanley Malhotra MD Nov 10, 2016 10:27
--- NOTE | 2016-11-10 14:49 | MG ---
cc: JONES AVALOS MD Lab No: [id number] Date: 10/10/2016 Age: 58 Sex: M Race: DATE OF : 1950. HISTORY: This is a 66-year-old intubated on Versed. Current generalized pseudo periodic sharp waveforms occurring ranging 1 to 5 seconds with intraictal suppressed delta activity. No driving with photic stimulation. Single EKG showing sinus rhythm. INTERPRETATION: Persistent severe encephalopathy. Generalized discharges occurring with pseudo periodic fashion higher voltage than previous EEG. Clinical correlation. Jones Avalos MD MG/KEVIN /2:36 PM /2:44 PM
[2016-11-10] MEDS: PANTOPRAZOLE SODIUM 40 MG VIAL IV PUSH SCH (16:00)
[2016-11-10] MEDS ORDERED: PROPOFOL 1000 MG/100 ML INJ 100 ML IV PRN (18:45)
--- NOTE | 2016-11-10 18:46 | HHI.CCPN ---
Subjective Remarks/Hospital Course Hospital Course: This is a 66-year-old man with history of diabetes, hypertension, dyslipidemia who about a month ago started having difficulty with balance with shuffling type of gait and resting tremor along with recent cognitive decline as well. His initial admission was on 10/06/16, as initial workup was negative patient was admitted to psych unit on 10/06/16 for suicidal ideations and altered mental status. He was evaluated by neurology Dr Branham, possibility of Parkinsonian symptoms and vitamin B 12 deficiency was entertained, but there was no improvement with treatment. He was re admitted to hospitalist service with worsening mental status on 10/25/16. Per Dr. Branham, MRI showed possible cerebritis. Differential included Creutzfeldt-Ministerio. But 14-3-3 protein for Creutzfeldt-Ministerio was negative. Currently on acyclovir for possibility of viral cerebritis. EEG done 10/24/16 showed generalized epileptiform activity. Patient was placed on Cerebyx, Keppra. Keppra was DCd due to rash and currently patient is on Cerebyx and Vimpat. Repeat EEGs from 10/31/16 and today shows continued seizure activity/subclinical seizures. Patient continues to be encephalopathic not responding. EEG today shows continued seizure activity indicating status epilepticus. Critical-care medicine was consulted by Dr. Branham today for continuous Versed infusion after intubation I evaluated the patient in ICU. He barely opens his eyes to painful stimuli localizes with right upper extremity withdrawal of any other extremities. Discussed with Dr. Branham multiple times. In his opinion, this appears to be a autoimmune encephalitis less likely to be infectious. Anti-NMDA receptor antibody ordered. Per Dr. Branham D/D possibly paraneoplastic, vasculitic or NMDA- receptor encephalitis. Currently patient is on IV Solu-Medrol and IVIG had been ordered by Dr. Branham. Initiate continuous EEG monitoring. TTP/HUS unlikely, but patient has E Coli UTI, I have asked for peripheral smear review by pathologist Subjective: 11/02: remains encephalopathic, but also very deeply sedated on versed drip. continuous EEG with intermittent sharp spikes that correspond with rhythmic neck movement. neurology adding additional anti-epileptics. peripheral smear without Schistocytes. currently receiving IVIG for possible auto-immune encephalopathy. 11/03 Patient remains sedated and intubated. Afebrile. 11/04 Patient remains intubated and sedated with Versed 10mg/hr. Tmax 100.6 11/05 No events overnight. On Versed drip for sedation, no seizures overnight. Patient is on continuous EEG monitoring. T: 101.0 last night. 11/06 Patient is sedated with Versed and Fentanyl. No seizures overnight. Afebrile. 11/07 Patient remains sedated and intubated. Afebrile. No recurrent seizures overnight. 11/08 TMax 99.6. The patient was noted to be on sedation vacation, EEG was being performed patient was noted to have subclinical seizures persistent. The patient was immediately bolused with 5 mg IV.Versed infusion continued at 8 mg/ h noted cessation of subclinical seizures and the patient continues to be monitored via EEG. Noted phenytoin and valproic acid levels were noted subtherapeutic today. 11/09 TMax 100.7. No further sedation holiday per Neurology due to ongoing subclinical seizure activity.the patient continues on AED's. AED levels pending in am.The patient remained on continuous EEG monitoring throughout the night with cessation of subclinical seizure activity. 11/10: No acute events overnight. EEG performed today. Propofol infusion added to medication regimen. Objective Vital Signs Date Time Temp Pulse Resp B/P (MAP) Pulse Ox O2 Delivery O2 Flow Rate FiO2 11/10/16 18:00 99 11/10/16 16:39 94 35 11/10/16 16:00 98.8 17 101/60 (74) 11/06/16 20:09 Ventilator Intake and Output 11/10/16 11/10/16 11/10/16 07:59 15:59 23:59 Intake Total 1770 ml 1250 ml Output Total 1200 ml 1600 ml Balance 570 ml -350 ml Result Diagram: 11/10/16 0545 11/10/16 0548 Imaging Last Impressions Chest X-Ray 11/09/16 0600 Signed Impressions: Service Date/Time: November 05:56 - CONCLUSION: 1. Stable ETT and NGT. 2. Stable low lung volumes with mild bibasilar airspace disease, likely atelectasis. 3. No significant interval change. Humphrey Dudley MD Brain MRI 11/07/16 0000 Signed Impressions: Service Date/Time: Monday, November 07, 2016 11:17 - CONCLUSION: 1. Continued subtle signal abnormality involving the pinto-white junction in the right occipital and right parietal regions. There has been no significant change when compared to the prior exam. Kranthi Lloyd MD Upper Extremity Ultrasound 11/04/16 Signed Impressions: Service Date/Time: Friday, November 04, 2016 18:24 - CONCLUSION: Occlusion of the cephalic vein. The other veins are patent. Everett Block MD Lower Extremity Ultrasound 11/03/16 0000 Signed Impressions: Service Date/Time: Thursday, November 03, 2016 15:19 - CONCLUSION: Negative for deep venous thrombosis. Rahat Frey MD FACR Chest CT 11/01/16 0000 Signed Impressions: Service Date/Time: Tuesday, November 01, 2016 15:59 - CONCLUSION: Minimal nonspecific adenopathy the bibasilar parenchymal changes worse on the left. Rahat Frey MD FACR Abdomen/Pelvis CT 11/01/16 0000 Signed Impressions: Service Date/Time: Tuesday, November 01, 2016 16:04 - CONCLUSION: Nonspecific minimal bowel wall thickening transverse colon. There are no ancillary signs of malignancy. Rahat Frey MD FACR Lumbar Puncture Fluoroscopy 10/26/16 0000 Signed Impressions: Service Date/Time: October 12:24 - CONCLUSION: Uncomplicated fluoroscopically guided cervical puncture. Kranthi Lloyd MD Last Impressions Chest X-Ray 11/08/16 0000 Signed Impressions: Service Date/Time: Tuesday, November 08, 2016 03:36 - CONCLUSION: 1. Stable ETT and NGT. 2. Low lung volumes with mild bibasilar airspace disease, likely atelectasis. 3. No significant interval change. Humphrey Dudley MD Brain MRI 11/07/16 0000 Signed Impressions: Service Date/Time: Monday, November 07, 2016 11:17 - CONCLUSION: 1. Continued subtle signal abnormality involving the pinto-white junction in the right occipital and right parietal regions. There has been no significant change when compared to the prior exam. Kranthi Lloyd MD Upper Extremity Ultrasound 11/04/16 0000 Signed Impressions: Service Date/Time: Friday, November 04, 2016 18:24 - CONCLUSION: Occlusion of the cephalic vein. The other veins are patent. Everett Block MD Lower Extremity Ultrasound 11/03/16 0000 Signed Impressions: Service Date/Time: Thursday, November 03, 2016 15:19 - CONCLUSION: Negative for deep venous thrombosis. Rahat Frey MD FACR Chest CT 11/01/16 0000 Signed Impressions: Service Date/Time: Tuesday, November 01, 2016 15:59 - CONCLUSION: Minimal nonspecific adenopathy the bibasilar parenchymal changes worse on the left. Rahat Frey MD FACR Abdomen/Pelvis CT 11/01/16 0000 Signed Impressions: Service Date/Time: Tuesday, November 01, 2016 16:04 - CONCLUSION: Nonspecific minimal bowel wall thickening transverse colon. There are no ancillary signs of malignancy. Rahat Frey MD FACR Lumbar Puncture Fluoroscopy 10/26/16 0000 Signed Impressions: Service Date/Time: October 12:24 - CONCLUSION: Uncomplicated fluoroscopically guided cervical puncture. Kranthi Lloyd MD Last Impressions Chest X-Ray 11/05/16 0000 Signed Impressions: Service Date/Time: Saturday, November 05, 2016 09:29 - CONCLUSION: Interval development of atelectasis right lung base. Lemuel Eastman MD Upper Extremity Ultrasound 11/04/16 0000 Signed Impressions: Service Date/Time: Friday, November 04, 2016 18:24 - CONCLUSION: Occlusion of the cephalic vein. The other veins are patent. Everett Block MD Lower Extremity Ultrasound 11/03/16 0000 Signed Impressions: Service Date/Time: Thursday, November 03, 2016 15:19 - CONCLUSION: Negative for deep venous thrombosis. Rahat Frey MD FACR Chest CT 11/01/16 0000 Signed Impressions: Service Date/Time: Tuesday, November 01, 2016 15:59 - CONCLUSION: Minimal nonspecific adenopathy the bibasilar parenchymal changes worse on the left. Rahat Frey MD FACR Abdomen/Pelvis CT 11/01/16 0000 Signed Impressions: Service Date/Time: Tuesday, November 01, 2016 16:04 - CONCLUSION: Nonspecific minimal bowel wall thickening transverse colon. There are no ancillary signs of malignancy. Rahat Frey MD FACR Brain MRI 10/31/16 0000 Signed Impressions: Service Date/Time: Monday, October 31, 2016 10:51 - CONCLUSION: 1. Subtle signal abdomen only at the pinto-white junction in the right hemisphere as above. The findings may reflect encephalitis or cerebritis Kranthi Lloyd MD Lumbar Puncture Fluoroscopy 10/26/16 0000 Signed Impressions: Service Date/Time: October 12:24 - CONCLUSION: Uncomplicated fluoroscopically guided cervical puncture. Kranthi Lloyd MD Objective Remarks GENERAL: This is a well developed , well nourished middle-aged male, lying in bed, intubated, and sedated. SKIN: Warm and dry. No lesions noted. HEENT: Normocephalic. Pupils equal 2 mm reactive. orotracheally intubated CARDIOVASCULAR: Regular rate and rhythm. No murmur appreciated. RESPIRATORY: No accessory muscle use. Clear to auscultation. Breath sounds equal bilaterally. GASTROINTESTINAL: Abdomen soft, non-tender, nondistended. MUSCULOSKELETAL: No obvious deformities. No clubbing or cyanosis. No edema. NEUROLOGICAL: GCS 3T.Deeply sedated on versed infusion. Pupils 2 mm reactive. 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 The findings may reflect encephalitis or cerebritis -11/07 repeat MRI brain continued subtle signal abnormality involving pinto/white matter junction in right occiput total and right parietal regions. No change from previous MRI -11/08 Continuous EEG, noted subclinical seizures-resolution with deep sedation Versed 8 mg/hour - Continue IV Cerebyx 100mg Q6 Vimpat, Depakote. 11/08 Monitor levels Dilantin level: 5.0, Depakote level 30 11/05. Check levels today - Workup negative for infectious encephalitis including CJD - Ongoing workup for autoimmune encephalitis, anti-NMDA receptor antibody pending - Continue IV Solu-Medrol 125mg IV Q6 and IVIG per Dr. Branham - TTP/HUS unlikely given lack of schistocytes on peripheral smear 11/01 -Hold all sedation vacations per Dr. Branham, due to active seizure activity -11/10 Add Propofol infusion RESP: Acute hypoxic and hypercarbic respiratory failure - Intubated for failure to protect airway from status epilepticus - [facility]/IT;1 35%, and ICU vent bundle - DuoNeb every 6 hours and when necessary - HOLD SBT / CPAP trials at this time, maintain sedation secondary to active seizure activity -CXR 11/08: Atelectasis right lung base -ETT day 6, plan discussion with family regarding possible tracheostomy CV: -Monitor HR and BP keep MAP>65mmHg GI: - IV Protonix for GI prophylaxis -Continue tube feeds- Glucerna 1.5 @ 50ml/hr @ goal - Bowel Regimen : Acute kidney injury Hypocalcemia - Monitor renal function, - electrolytes replacement as needed ID: Encephalitis is probably noninfectious E Coli UTI Gram negative bacteremia Pneumonia Continue with abx (Cefepime, Levaquin) ID is following monitor for isgns of infections ( Fever, WBC) - Blood,sputum from 11/05: Escherichia coli, sputum cx 11/05: Escherichia coli, Staph Aureus, Enterobacter Aerogenes -Urine cx 11/06: Escherichia coli - TTP/HUS unlikely given negative peripheral smear for schistocytes -ID following-Dr. Mackay HEME: Thrombocytopenia - Monitor CBC, CMP, coags, Fibrinogen level 365 11/05, Heme is following -HIT panel is negative ENDO: Type 2 diabetes - Electrolyte replacement per protocol - Increase SSI (High scale) Levemir 14 units BID PROPH: - Bilateral lower extremity SCDs. Lovenox SQ -US RUE: Occlusion of the cephalic vein. -US LE b/L: No DVT - IV Protonix LINES: - Utilize peripheral IVs Dispo: Discussed with Mrs. Luong and updated her regarding patients current medical status. Continuation of obtaining therapuetic AED levels and reinitiation of CPAP trials, when clinically appropriate Level 3 Physician Leslie Hoffman MD Nov 10, 2016 18:46
--- NOTE | 2016-11-10 20:47 | RADRPT ---
EXAM DATE/TIME: 11/10/2016 20:12 [facility] COMPARISON: CHEST SINGLE AP, November 09, 2016, 5:56. INDICATIONS : Shortness of breath. MEDICAL HISTORY : None. SURGICAL HISTORY : None. ENCOUNTER: Subsequent ACUITY: 1 week PAIN SCORE: Non-responsive. LOCATION: Bilateral chest FINDINGS: A single view of the chest demonstrates endotracheal tube in satisfactory position. NG enters stomach . Mild basilar atelectasis. No effusion. No pneumothorax. CONCLUSION: 1. Endotracheal tube and nasogastric tube in satisfactory position. Mild basilar atelectasis. Kit Cates MD on November 10, 2016 at 20:44 Board Certified Radiologist. This report was verified electronically.
--- NOTE | 2016-11-10 21:08 | HHI.PR ---
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 Creutzfeldt juanjo in differential, also possible autoimmune encepalitis such as NMDA, paraneoplastic Plan increase phenytoin increase depacote follow up paraneoplastic antibodies and anti nmda antibody--I called lab and not yet ba repeat MRI next week and consider brain bx if the labs for paraneoplastic and NMDA come back negative to further assess for Creutzfeldt Juanjo taper solumedrol Diagnosis/Plan: Subjective Subjective Comments No acute events reported Active Medications Current Medications Medications (Trade) Dose Ordered Sig/Alyssa Route Start Time Stop Time Status Last Admin (NS Flush) 2 ml UNSCH PRN IV FLUSH 10/25/16 00:45 (NS Flush) 2 ml BID IV FLUSH 10/25/16 09:00 11/10/16 19:56 (Zofran Inj) 4 mg Q6H PRN IVP 10/25/16 00:45 (Narcan Inj) 0.4 mg UNSCH PRN IV 10/25/16 00:45 (Ativan Inj) 1 mg Q6H PRN IV 10/26/16 21:30 11/08/16 17:34 (Vasotec Inj) 1.25 mg Q6H PRN IV PUSH 10/26/16 21:30 11/08/16 18:33 (Catapres-Tts 0.1mg Patch.7d) 1 patch Q7D T-DERMAL 10/29/16 16:00 11/05/16 15:07 Miscellaneous Information 1 Q7D T-DERMAL 11/05/16 16:00 11/05/16 15:07 Lacosamide 100 mg/ Sodium Chloride 110 ml @ 110 mls/hr Q6H IV 11/01/16 15:00 11/10/16 20:52 (Peridex 0.12% Liq) 15 ml BID@08,20 MT 11/01/16 20:00 11/10/16 19:55 Midazolam HCl 100 ml @ 2 mls/hr TITRATE PRN IV 11/01/16 12:30 11/10/16 12:40 (Duoneb Neb) 1 ampule Q6HR NEB PRN NEB 11/01/16 13:45 11/04/16 20:39 (Colace Liq) 100 mg Q12HR PO 11/01/16 21:00 11/10/16 19:54 (Protonix Inj) 40 mg Q24H IV PUSH 11/01/16 16:00 11/10/16 16:00 (Lovenox Inj) 40 mg Q24H SQ 11/02/16 09:00 Future hold 11/10/16 08:00 Potassium Chloride 100 ml @ 50 mls/hr Q2H PRN IV 11/01/16 14:00 Potassium Chloride 100 ml @ 50 mls/hr Q2H PRN IV 11/01/16 14:00 (K-Lyte Cl Eff) 50 meq UNSCH PRN PO 11/01/16 14:00 Potassium Chloride 100 ml @ 25 mls/hr UNSCH PRN IV 11/01/16 14:00 Potassium Chloride 100 ml @ 50 mls/hr Q2H PRN IV 11/01/16 14:00 Magnesium Sulfate 4 gm/Sodium Chloride 100 ml @ 50 mls/hr UNSCH PRN IV 11/01/16 14:00 (Mag-Ox) 800 mg UNSCH PRN PO 11/01/16 14:00 Magnesium Sulfate 2 gm/Sodium Chloride 100 ml @ 50 mls/hr UNSCH PRN IV 11/01/16 14:00 (K-Phos) 2,000 mg Q4H PRN PO 11/01/16 14:00 Sodium Phosphate 30 mmol/Sodium Chloride 250 ml @ 42 mls/hr UNSCH PRN IV 11/01/16 14:00 11/08/16 08:48 (K-Phos) 2,000 mg UNSCH PRN PO/TUBE 11/01/16 14:00 Potassium Phosphate 30 mmol/ Sodium Chloride 260 ml @ 42 mls/hr UNSCH PRN IV 11/01/16 14:00 (Tylenol 160 Mg/ 5 ml Liq) 325 mg Q6H PRN NG 11/01/16 14:00 11/08/16 21:01 (SoluMEDROL INJ) 125 mg Q6H IV 11/03/16 20:00 11/10/16 19:54 (Senna Liq) 8.8 mg DAILY PO 11/05/16 09:00 11/09/16 08:00 (Lactulose Liq) 15 ml TID PO 11/05/16 09:00 11/10/16 08:03 (Levaquin) 500 mg DAILY PO 11/05/16 09:00 11/10/16 08:01 Fentanyl Citrate 250 ml @ 5 mls/hr TITRATE PRN IV 11/05/16 22:15 11/07/16 19:41 (Levemir Inj) 14 units Q12HR SQ 11/06/16 09:00 11/10/16 20:54 Cefepime HCl 2000 mg/Sodium Chloride 100 ml @ 200 mls/hr Q8H IV 11/06/16 18:00 11/10/16 17:01 (D50w (Vial) Inj) 50 ml UNSCH PRN IV 11/07/16 09:30 (Glucagon Inj) 1 mg UNSCH PRN OTHER 11/07/16 09:30 (NovoLIN R SUPPLEMENTAL SCALE) 1 Q6H SQ 11/07/16 11:00 11/10/16 10:20 Valproate Sodium 500 mg/Sodium Chloride 105 ml @ 105 mls/hr Q4HR IV 11/09/16 17:00 11/10/16 19:55 (Cerebyx Inj) 200 mgpe Q8HR IV 11/09/16 22:00 11/10/16 12:40 Propofol 100 ml @ 15.975 mls/ hr TITRATE PRN IV 11/10/16 18:45 Allergies Allergies Coded Allergies penicillin G (Unverified Allergy, Severe, 10/17/16) Review of Systems All other ROS: ROS reviewed as documented in chart Exam I&O / VS 11/10/16 11/10/16 11/11/16 15:00 23:00 07:00 Intake Total 405 ml 1455 ml Output Total 1600 ml Balance 405 ml -145 ml IV Total 405 ml 1455 ml Output Urine Total 1200 ml Stool Total 400 ml Vital Signs Date Time Temp Pulse Resp B/P (MAP) Pulse Ox O2 Delivery O2 Flow Rate FiO2 11/10/16 20:57 95 35 11/10/16 18:00 99 11/10/16 16:39 94 35 11/10/16 16:00 99 11/10/16 16:00 35 11/10/16 16:00 98.8 95 17 101/60 (74) 96 11/10/16 14:00 99 11/10/16 12:49 94 35 11/10/16 12:00 35 11/10/16 12:00 99.3 91 116/65 (82) 96 11/10/16 12:00 99 11/10/16 10:00 91 11/10/16 09:34 94 35 11/10/16 08:00 35 11/10/16 08:00 91 11/10/16 08:00 99.0 91 115/73 (87) 96 11/10/16 06:00 96 11/10/16 04:12 97 35 11/10/16 04:00 99.0 91 115/73 (87) 96 11/10/16 04:00 91 11/10/16 04:00 35 11/10/16 02:00 87 11/10/16 00:18 94 35 11/10/16 00:00 35 11/10/16 00:00 92 11/10/16 00:00 98.8 92 18 94/61 (72) 95 11/09/16 22:00 96 11/09/16 21:13 94 35 Exam Comments Intubated and on versed. --nonresponsive CN--PERRL, MOTOR--no focal deficit.No clinical sz activity Objective Micro and Labs Laboratory Tests Test 11/10/16 05:45 11/10/16 05:48 White Blood Count 19.2 Red Blood Count 3.38 Hemoglobin 9.9 Hematocrit 30.4 Mean Corpuscular Volume 90.0 Mean Corpuscular Hemoglobin 29.4 Mean Corpuscular Hemoglobin Concent 32.7 Red Cell Distribution Width 13.0 Platelet Count 151 Mean Platelet Volume 9.3 Neutrophils (%) (Auto) 93.5 Lymphocytes (%) (Auto) 3.2 Monocytes (%) (Auto) 3.2 Eosinophils (%) (Auto) 0.0 Basophils (%) (Auto) 0.1 Neutrophils # (Auto) 17.9 Lymphocytes # (Auto) 0.6 Monocytes # (Auto) 0.6 Eosinophils # (Auto) 0.0 Basophils # (Auto) 0.0 CBC Comment AUTO DIFF Differential Total Cells Counted 100 Neutrophils % (Manual) 87 Band Neutrophils % 6 Lymphocytes % 4 Monocytes % 1 Neutrophils # (Manual) 18.2 Metamyelocytes 2 Differential Comment FINAL DIFF MANUAL Platelet Estimate NORMAL Platelet Morphology Comment NORMAL Red Cell Morphology Comment NORMAL Blood Urea Nitrogen 47 Creatinine 1.03 Random Glucose 182 Calcium Level 7.5 Phosphorus Level 3.1 Magnesium Level 2.1 Sodium Level 141 Potassium Level 3.6 Chloride Level 109 Carbon Dioxide Level 24.1 Anion Gap 8 Estimat Glomerular Filtration Rate 72 Phenytoin (Dilantin) Level 5.1 Valproic Acid (Depakene) Level 43 Date/Time Source Procedure Growth Status 11/05/16 14:45 Blood Peripheral Aerobic Blood Culture - Preliminary Gram Negative Gopi Resulted 11/05/16 14:45 Blood Peripheral Anaerobic Blood Culture - Final NO GROWTH IN 5 DAYS Resulted 10/26/16 13:00 Cerebral Spinal Fluid Lumbar Puncture Fungal Smear - Final NO FUNGAL ELEMENTS SEEN. Resulted 10/26/16 13:00 Cerebral Spinal Fluid Lumbar Puncture Fungal Culture - Preliminary NO GROWTH IN 2 WEEKS Resulted 11/05/16 09:15 Sputum Endotracheal Gram Stain - Final Complete 11/05/16 09:15 Sputum Culture - Final Staphylococcus Aureus Escherichia Coli Enterobacter Aerogenes Complete 11/06/16 03:00 Urine Catheterized Urine Urine Culture - Final NO GROWTH IN 48 HOURS. Complete Diagnostic Tests EEG today showing bilateral PLEDS Miguelito Branham PhD Nov 10, 2016 21:07
[2016-11-11] VITALS (18 sets, daily range): BP systolic 89–132; BP diastolic 54–63; PULSE 81–91; RESP 16–18; TEMP 98.5–101.9; O2SAT 93–98
[2016-11-11 01:48] LABS: HEMATOCRIT 26.2 % (39.0-51.0); MEAN CORPUSCULAR HGB CONC 32.9 % (32.0-36.0); PLATELET COUNT 147 TH/MM3 (150-450); RED BLOOD COUNT 2.88 MIL/MM3 (4.50-5.90); RED CELL DISTRIBUTION WIDTH 13.2 % (11.6-17.2); REVIEW FLAG FINAL
[2016-11-11 02:11] LABS: BICARBONATE 25.8 MEQ/L (21.0-32.0); MAGNESIUM 2.2 MG/DL (1.5-2.5); POTASSIUM 3.7 MEQ/L (3.5-5.1)
[2016-11-11 02:38] LABS: CALCIUM-PROTEIN CORRECTED 7.6 MG/DL (8.5-10.1)
[2016-11-11] MEDS: VALPROATE INJ 500 MG in SODIUM CHLORIDE 0.9% INJ 100 ML IV SCH ×4 (03:04→12:01)
[2016-11-11 03:53] LABS: BLOOD GAS BASE EXCESS 0.4 mmol/L (-2-2); BLOOD GAS CARBOXYHEMOGLOBIN 1.6 % (0-4); BLOOD GAS HCO3 24 mmol/L (22-26); BLOOD GAS METHEMOGLOBIN 1.2 % (0-2); BLOOD GAS O2 HGB SATURATION 95 % (90-100); BLOOD GAS OXYGEN CONTENT 12.7 Vol % (12.0-20.0); BLOOD GAS PCO2 32 mmHg (38-42); BLOOD GAS PO2 97 mmHg (61-120); BLOOD GAS TOTAL HGB 9.4 G/DL (12.0-16.0); TEMP CORR TO 98.6
[2016-11-11 03:54] LABS: CRITICAL VALUE NO; OXYGEN DEVICE VENTILATOR
[2016-11-11 03:55] LABS: DRAW SITE RT BRACHIAL; FIO2 35 %; NUMBER OF ARTERIAL PUNCTURES 1; STAT NO; ULNAR PULSE PRESENT
[2016-11-11] MEDS: INSULIN NovoLIN REGULAR SUPPLEMENTAL SCALE SQ SCH ×4 (05:00→23:00)
[2016-11-11] MEDS: methylPREDNISolone SOD SUCC 125 MG/2 ML VIAL IV SCH ×4 (06:03→20:34)
[2016-11-11] MEDS: LACOSAMIDE INJ 100 MG in SODIUM CHLORIDE 0.9% INJ 100 ML IV SCH ×4 (06:03→20:34)
[2016-11-11] MEDS: CEFEPIME INJ 2,000 MG in SODIUM CHLORIDE 0.9% INJ 100 ML IV SCH ×3 (06:04→17:06)
[2016-11-11] MEDS: FOSPHENYTOIN SODIUM 100 MG PE/2 ML VIAL IV SCH ×3 (06:24→23:41)
[2016-11-11] MEDS: CHLORHEXIDINE 0.12% (ORAL KIT) 15 ML CUP MT SCH ×2 (08:00→20:33)
[2016-11-11] MEDS: DOCUSATE SODIUM 100 MG/10 ML UDC PO SCH ×2 (08:08→20:34)
[2016-11-11] MEDS: SODIUM CHLORIDE 0.9% FLUSH 10 ML FLUSH IV FLUSH SCH ×2 (08:08→20:34)
[2016-11-11] MEDS: SENNOSIDES SYRUP 8.8 MG/5 ML CUP PO SCH (08:08)
[2016-11-11] MEDS: LACTULOSE SYRUP 20 GM/30 ML CUP PO SCH ×3 (08:08→17:08)
[2016-11-11] MEDS: MIDAZOLAM 100 MG/NS 100 ML DRIP Premix IV PRN ×2 (08:09→20:38)
[2016-11-11] MEDS: LEVOFLOXACIN 500 MG TAB PO SCH (08:09)
[2016-11-11] MEDS: ENOXAPARIN SODIUM 40 MG/0.4 ML SYRINGE SQ SCH (08:09)
[2016-11-11] MEDS: INSULIN DETEMIR 100 UNITS/ML VIAL SQ SCH ×2 (08:20→20:35)
--- NOTE | 2016-11-11 10:45 | HHI.IDPN ---
Subjective Subjective Remarks ID [id number] for Dr Nguyen No seizures remains on vent cont to have moderate hutchison secretions Blood clzx are + for E.coli no fvever x 2 days Antibiotics Levaquin cefepime Past Medical History Hypertension Diabetes Dyslipidemia Depression Past Surgical History Umbilical hernia repair Allergies: Coded Allergies: penicillin G (Unverified Allergy, Severe, 10/17/16) Objective . Vital Signs Date Time Temp Pulse Resp B/P (MAP) Pulse Ox O2 Delivery O2 Flow Rate FiO2 11/11/16 10:00 86 11/11/16 09:02 94 35 11/11/16 08:00 35 11/11/16 08:00 98.6 87 18 115/55 (75) 93 11/11/16 08:00 87 11/11/16 06:00 35 11/11/16 06:00 86 11/11/16 04:08 96 35 11/11/16 04:00 98.9 91 18 89/54 (66) 94 11/11/16 04:00 86 11/11/16 02:00 90 11/11/16 00:19 97 35 11/11/16 00:00 99.1 90 16 101/63 (76) 96 11/11/16 00:00 35 11/11/16 00:00 90 11/10/16 22:00 91 11/10/16 20:57 95 35 11/10/16 20:00 94 11/10/16 20:00 97.6 94 16 121/64 (83) 95 11/10/16 20:00 35 11/10/16 18:00 99 11/10/16 16:39 94 35 11/10/16 16:00 99 11/10/16 16:00 35 11/10/16 16:00 98.8 95 17 101/60 (74) 96 11/10/16 14:00 99 11/10/16 12:49 94 35 11/10/16 12:00 35 11/10/16 12:00 99.3 91 17 116/65 (82) 96 11/10/16 12:00 99 11/11/16 11/11/16 11/12/16 15:00 23:00 07:00 Intake Total 315 ml Balance 315 ml IV Total 315 ml . Laboratory Tests Test 11/10/16 05:45 11/11/16 01:37 White Blood Count 19.2 TH/MM3 15.0 TH/MM3 Red Blood Count 3.38 MIL/MM3 2.88 MIL/MM3 Hemoglobin 9.9 GM/DL 8.6 GM/DL Hematocrit 30.4 % 26.2 % Mean Corpuscular Volume 90.0 FL 91.0 FL Mean Corpuscular Hemoglobin 29.4 PG 30.0 PG Mean Corpuscular Hemoglobin Concent 32.7 % 32.9 % Red Cell Distribution Width 13.0 % 13.2 % Platelet Count 151 TH/MM3 147 TH/MM3 Mean Platelet Volume 9.3 FL 8.8 FL Neutrophils (%) (Auto) 93.5 % Lymphocytes (%) (Auto) 3.2 % Monocytes (%) (Auto) 3.2 % Eosinophils (%) (Auto) 0.0 % Basophils (%) (Auto) 0.1 % Neutrophils # (Auto) 17.9 TH/MM3 Lymphocytes # (Auto) 0.6 TH/MM3 Monocytes # (Auto) 0.6 TH/MM3 Eosinophils # (Auto) 0.0 TH/MM3 Basophils # (Auto) 0.0 TH/MM3 CBC Comment AUTO DIFF Differential Total Cells Counted 100 Neutrophils % (Manual) 87 % Band Neutrophils % 6 % Lymphocytes % 4 % Monocytes % 1 % Neutrophils # (Manual) 18.2 TH/MM3 Metamyelocytes 2 % Differential Comment FINAL DIFF MANUAL Platelet Estimate NORMAL Platelet Morphology Comment NORMAL Red Cell Morphology Comment NORMAL Laboratory Tests Test 11/09/16 16:11 11/10/16 05:48 11/11/16 01:37 C-Reactive Protein 3.66 MG/DL Procalcitonin 1.64 ng/mL Blood Urea Nitrogen 47 MG/DL 49 MG/DL Creatinine 1.03 MG/DL 1.12 MG/DL Random Glucose 182 MG/DL 182 MG/DL Calcium Level 7.5 MG/DL 7.2 MG/DL Phosphorus Level 3.1 MG/DL 2.5 MG/DL Magnesium Level 2.1 MG/DL 2.2 MG/DL Sodium Level 141 MEQ/L 147 MEQ/L Potassium Level 3.6 MEQ/L 3.7 MEQ/L Chloride Level 109 MEQ/L 113 MEQ/L Carbon Dioxide Level 24.1 MEQ/L 25.8 MEQ/L Anion Gap 8 MEQ/L 8 MEQ/L Estimat Glomerular Filtration Rate 72 ML/MIN 65 ML/MIN Total Protein 6.3 GM/DL Protein Corrected Calcium 7.6 MG/DL Microbiology Date/Time Source Procedure Growth Status 11/11/16 01:37 Blood Peripheral Aerobic Blood Culture Pending Received 11/11/16 01:37 Blood Peripheral Anaerobic Blood Culture Pending Received 11/11/16 01:32 Blood Peripheral Aerobic Blood Culture Pending Received 11/11/16 01:32 Blood Peripheral Anaerobic Blood Culture Pending Received Imaging Last Impressions Chest X-Ray 11/07/16 0000 Signed Impressions: Service Date/Time: Monday, November 07, 2016 11:55 - CONCLUSION: 1. Subsegmental atelectasis both bases. There has been no significant change when compared to the prior exam. Kranthi Lloyd MD Brain MRI 11/07/16 0000 Signed Impressions: Service Date/Time: Monday, November 07, 2016 11:17 - CONCLUSION: 1. Continued subtle signal abnormality involving the pinto-white junction in the right occipital and right parietal regions. There has been no significant change when compared to the prior exam. Kranthi Lloyd MD Upper Extremity Ultrasound 11/04/16 0000 Signed Impressions: Service Date/Time: Friday, November 04, 2016 18:24 - CONCLUSION: Occlusion of the cephalic vein. The other veins are patent. Everett Block MD Lower Extremity Ultrasound 11/03/16 0000 Signed Impressions: Service Date/Time: Thursday, November 03, 2016 15:19 - CONCLUSION: Negative for deep venous thrombosis. Rahat Frey MD FACR Chest CT 11/01/16 0000 Signed Impressions: Service Date/Time: Tuesday, November 01, 2016 15:59 - CONCLUSION: Minimal nonspecific adenopathy the bibasilar parenchymal changes worse on the left. Rahat Frey MD FACR Abdomen/Pelvis CT 11/01/16 0000 Signed Impressions: Service Date/Time: Tuesday, November 01, 2016 16:04 - CONCLUSION: Nonspecific minimal bowel wall thickening transverse colon. There are no ancillary signs of malignancy. Rahat Frey MD FACR Lumbar Puncture Fluoroscopy 10/26/16 0000 Signed Impressions: Service Date/Time: October 12:24 - CONCLUSION: Uncomplicated fluoroscopically guided cervical puncture. Kranthi Lloyd MD Physical Exam CONSTITUTIONAL/GENERAL: On the vent, looks comfortable. SKIN: No jaundice, rashes, or lesions. HEAD: Atraumatic. Normocephalic. EYES: Pupils equal and round and reactive. No scleral icterus. No injection or drainage. Fundi not examined. ENT: Hearing not tested. Nose without bleeding or purulent drainage. Orally intubated NECK: Trachea midline. Supple, nontender. CARDIOVASCULAR: Regular rate and rhythm without murmurs, gallops, or rubs. No JVD. Peripheral pulses symmetric. RESPIRATORY/CHEST: Coarse breath sounds bilaterally GASTROINTESTINAL: Abdomen soft, non-tender, nondistended. No hepato-splenomegaly , or palpable masses. No guarding. Bowel sounds present. Incontinent of very liquid foul smelling brown stool GENITOURINARY: Mcdaniel catheter in place with clear yellow urine MUSCULOSKELETAL: Extremities without clubbing, cyanosis, or edema. No mottling or clubbing. 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 Creutzfeldt ryann in differential, also possible autoimmune encepalitis such as NMDA, paraneoplastic repeat brain MRI negative 14-3-3 PROTEIN,CSF: LESS THAN 2 ng/mL - ASH neg, ESR wnl - MRI cw cerebritis/encephalitis clinicall progression of neurological symptoms HSV negative CSF with nl glc, protein, bordeline moncytic pleocytosis HIV negative Lymphopenia Progressive thrombocytopenia: improved Respiratory failure UTI, E.coli, bacteremic - deshpande S PNA: growing multiple GNRs (Enterobacter, E.coli), MSSA Persistent diarhea, abx associated; stool neg for C.diff as of 10/29 RECS: Continue levaquin x 14 days cont cefepime x 7 days fu repeat BC Follow temps, WBC Monitor progress repeat stool for C.diff dw [place] Greene MD Nov 11, 2016 10:45
--- NOTE | 2016-11-11 14:10 | HHI.PR ---
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 Creutzfeldt ryann in differential, also possible autoimmune encepalitis such as NMDA, paraneoplastic Plan increase phenytoin increase depacote follow up paraneoplastic antibodies and anti nmda antibody--I called lab and not yet ba repeat MRI next week and consider brain bx if the labs for paraneoplastic and NMDA come back negative to further assess for Creutzfeldt Ryann taper solumedrol Diagnosis/Plan: Subjective Subjective Comments No acute events reported No clinical sz or myoclonus on versed, vpa, dph, vimpat Active Medications Current Medications Medications (Trade) Dose Ordered Sig/Alyssa Route Start Time Stop Time Status Last Admin (NS Flush) 2 ml UNSCH PRN IV FLUSH 10/25/16 00:45 (NS Flush) 2 ml BID IV FLUSH 10/25/16 09:00 11/11/16 08:08 (Zofran Inj) 4 mg Q6H PRN IVP 10/25/16 00:45 (Narcan Inj) 0.4 mg UNSCH PRN IV 10/25/16 00:45 (Ativan Inj) 1 mg Q6H PRN IV 10/26/16 21:30 11/08/16 17:34 (Vasotec Inj) 1.25 mg Q6H PRN IV PUSH 10/26/16 21:30 11/08/16 18:33 (Catapres-Tts 0.1mg Patch.7d) 1 patch Q7D T-DERMAL 10/29/16 16:00 11/05/16 15:07 Miscellaneous Information 1 Q7D T-DERMAL 11/05/16 16:00 11/05/16 15:07 Lacosamide 100 mg/ Sodium Chloride 110 ml @ 110 mls/hr Q6H IV 11/01/16 15:00 11/11/16 08:07 (Peridex 0.12% Liq) 15 ml BID@08,20 MT 11/01/16 20:00 11/11/16 08:00 Midazolam HCl 100 ml @ 2 mls/hr TITRATE PRN IV 11/01/16 12:30 11/11/16 08:09 (Duoneb Neb) 1 ampule Q6HR NEB PRN NEB 11/01/16 13:45 11/04/16 20:39 (Colace Liq) 100 mg Q12HR PO 11/01/16 21:00 11/11/16 08:08 (Protonix Inj) 40 mg Q24H IV PUSH 11/01/16 16:00 11/10/16 16:00 (Lovenox Inj) 40 mg Q24H SQ 11/02/16 09:00 Future hold 11/11/16 08:09 Potassium Chloride 100 ml @ 50 mls/hr Q2H PRN IV 11/01/16 14:00 Potassium Chloride 100 ml @ 50 mls/hr Q2H PRN IV 11/01/16 14:00 (K-Lyte Cl Eff) 50 meq UNSCH PRN PO 11/01/16 14:00 Potassium Chloride 100 ml @ 25 mls/hr UNSCH PRN IV 11/01/16 14:00 Potassium Chloride 100 ml @ 50 mls/hr Q2H PRN IV 11/01/16 14:00 Magnesium Sulfate 4 gm/Sodium Chloride 100 ml @ 50 mls/hr UNSCH PRN IV 11/01/16 14:00 (Mag-Ox) 800 mg UNSCH PRN PO 11/01/16 14:00 Magnesium Sulfate 2 gm/Sodium Chloride 100 ml @ 50 mls/hr UNSCH PRN IV 11/01/16 14:00 (K-Phos) 2,000 mg Q4H PRN PO 11/01/16 14:00 Sodium Phosphate 30 mmol/Sodium Chloride 250 ml @ 42 mls/hr UNSCH PRN IV 11/01/16 14:00 11/08/16 08:48 (K-Phos) 2,000 mg UNSCH PRN PO/TUBE 11/01/16 14:00 Potassium Phosphate 30 mmol/ Sodium Chloride 260 ml @ 42 mls/hr UNSCH PRN IV 11/01/16 14:00 (Tylenol 160 Mg/ 5 ml Liq) 325 mg Q6H PRN NG 11/01/16 14:00 11/08/16 21:01 (Senna Liq) 8.8 mg DAILY PO 11/05/16 09:00 11/11/16 08:08 (Lactulose Liq) 15 ml TID PO 11/05/16 09:00 11/11/16 12:01 (Levaquin) 500 mg DAILY PO 11/05/16 09:00 11/18/16 09:00 11/11/16 08:09 Fentanyl Citrate 250 ml @ 5 mls/hr TITRATE PRN IV 11/05/16 22:15 11/07/16 19:41 (Levemir Inj) 14 units Q12HR SQ 11/06/16 09:00 11/11/16 08:20 Cefepime HCl 2000 mg/Sodium Chloride 100 ml @ 200 mls/hr Q8H IV 11/06/16 18:00 11/12/16 20:00 11/11/16 10:03 (D50w (Vial) Inj) 50 ml UNSCH PRN IV 11/07/16 09:30 (Glucagon Inj) 1 mg UNSCH PRN OTHER 11/07/16 09:30 (NovoLIN R SUPPLEMENTAL SCALE) 1 Q6H SQ 11/07/16 11:00 11/11/16 11:12 Valproate Sodium 500 mg/Sodium Chloride 105 ml @ 105 mls/hr Q4HR IV 11/09/16 17:00 11/11/16 12:01 (Cerebyx Inj) 200 mgpe Q8HR IV 11/09/16 22:00 11/11/16 06:24 Propofol 100 ml @ 15.975 mls/ hr TITRATE PRN IV 11/10/16 18:45 (SoluMEDROL INJ) 60 mg Q6H IV 11/11/16 02:00 11/11/16 08:09 Allergies Allergies Coded Allergies penicillin G (Unverified Allergy, Severe, 10/17/16) Review of Systems All other ROS: ROS reviewed as documented in chart Exam I&O / VS 11/11/16 11/11/16 11/12/16 15:00 23:00 07:00 Intake Total 315 ml Balance 315 ml IV Total 315 ml Vital Signs Date Time Temp Pulse Resp B/P (MAP) Pulse Ox O2 Delivery O2 Flow Rate FiO2 11/11/16 12:13 96 35 11/11/16 12:00 35 11/11/16 12:00 98.5 86 16 111/57 (75) 95 11/11/16 12:00 86 11/11/16 10:00 86 11/11/16 09:02 94 35 11/11/16 08:00 35 11/11/16 08:00 98.6 87 18 115/55 (75) 93 11/11/16 08:00 87 11/11/16 06:00 35 11/11/16 06:00 86 11/11/16 04:08 96 35 11/11/16 04:00 98.9 91 18 89/54 (66) 94 11/11/16 04:00 86 11/11/16 02:00 90 11/11/16 00:19 97 35 11/11/16 00:00 99.1 90 16 101/63 (76) 96 11/11/16 00:00 35 11/11/16 00:00 90 11/10/16 22:00 91 11/10/16 20:57 95 35 11/10/16 20:00 94 11/10/16 20:00 97.6 94 16 121/64 (83) 95 11/10/16 20:00 35 11/10/16 18:00 99 11/10/16 16:39 94 35 11/10/16 16:00 99 11/10/16 16:00 35 11/10/16 16:00 98.8 95 17 101/60 (74) 96 Exam Comments Intubated and on versed. --nonresponsive CN--PERRL, MOTOR--no focal deficit.No clinical sz activity Objective Micro and Labs Laboratory Tests Test 11/11/16 01:37 11/11/16 03:32 White Blood Count 15.0 Red Blood Count 2.88 Hemoglobin 8.6 Hematocrit 26.2 Mean Corpuscular Volume 91.0 Mean Corpuscular Hemoglobin 30.0 Mean Corpuscular Hemoglobin Concent 32.9 Red Cell Distribution Width 13.2 Platelet Count 147 Mean Platelet Volume 8.8 Blood Urea Nitrogen 49 Creatinine 1.12 Random Glucose 182 Total Protein 6.3 Calcium Level 7.2 Phosphorus Level 2.5 Magnesium Level 2.2 Sodium Level 147 Potassium Level 3.7 Chloride Level 113 Carbon Dioxide Level 25.8 Anion Gap 8 Estimat Glomerular Filtration Rate 65 Protein Corrected Calcium 7.6 Phenytoin (Dilantin) Level 5.8 Valproic Acid (Depakene) Level 31 Blood Gas Puncture Site RT BRACHIAL Blood Gas Patient Temperature 98.6 Blood Gas HCO3 24 Blood Gas Base Excess 0.4 Blood Gas Oxygen Saturation 95 Arterial Blood pH 7.48 Arterial Blood Partial Pressure CO2 32 Arterial Blood Partial Pressure O2 97 Arterial Blood Oxygen Content 12.7 Arterial Blood Carboxyhemoglobin 1.6 Arterial Blood Methemoglobin 1.2 Blood Gas Hemoglobin 9.4 Oxygen Delivery Device VENTILATOR Blood Gas Ventilator Setting COMMENT Blood Gas Inspired Oxygen 35 Date/Time Source Procedure Growth Status 11/11/16 01:37 Blood Peripheral Aerobic Blood Culture Pending Received 11/11/16 01:37 Blood Peripheral Anaerobic Blood Culture Pending Received 10/26/16 13:00 Cerebral Spinal Fluid Lumbar Puncture Fungal Smear - Final NO FUNGAL ELEMENTS SEEN. Resulted 10/26/16 13:00 Cerebral Spinal Fluid Lumbar Puncture Fungal Culture - Preliminary NO GROWTH IN 2 WEEKS Resulted 11/05/16 09:15 Sputum Endotracheal Gram Stain - Final Complete 11/05/16 09:15 Sputum Culture - Final Staphylococcus Aureus Escherichia Coli Enterobacter Aerogenes Complete 11/06/16 03:00 Urine Catheterized Urine Urine Culture - Final NO GROWTH IN 48 HOURS. Complete Miguelito Branham PhD Nov 11, 2016 14:10
--- NOTE | 2016-11-11 15:41 | HHI.PR ---
Subjective Remarks ON THE VENTILATOR UNRESPONSIVE Objective Vital Signs Date Time Temp Pulse Resp B/P (MAP) Pulse Ox O2 Delivery O2 Flow Rate FiO2 11/11/16 15:12 98 35 11/11/16 14:00 90 11/11/16 12:13 96 35 11/11/16 12:00 35 11/11/16 12:00 98.5 86 16 111/57 (75) 95 11/11/16 12:00 86 11/11/16 10:00 86 11/11/16 09:02 94 35 11/11/16 08:00 35 11/11/16 08:00 98.6 87 18 115/55 (75) 93 11/11/16 08:00 87 11/11/16 06:00 35 11/11/16 06:00 86 11/11/16 04:08 96 35 11/11/16 04:00 98.9 91 18 89/54 (66) 94 11/11/16 04:00 86 11/11/16 02:00 90 11/11/16 00:19 97 35 11/11/16 00:00 99.1 90 16 101/63 (76) 96 11/11/16 00:00 35 11/11/16 00:00 90 11/10/16 22:00 91 11/10/16 20:57 95 35 11/10/16 20:00 94 11/10/16 20:00 97.6 94 16 121/64 (83) 95 11/10/16 20:00 35 11/10/16 18:00 99 11/10/16 16:39 94 35 11/10/16 16:00 99 11/10/16 16:00 35 11/10/16 16:00 98.8 95 17 101/60 (74) 96 I/O 11/10/16 11/10/16 11/10/16 11/11/16 11/11/16 11/11/16 07:00 15:00 23:00 07:00 15:00 23:00 Intake Total 1770 ml 405 ml 1455 ml 1540 ml 315 ml Output Total 1200 ml 1600 ml 800 ml Balance 570 ml 405 ml -145 ml 740 ml 315 ml IV Total 540 ml 405 ml 1455 ml 877 ml 315 ml Tube Feeding 630 ml 663 ml Other 600 ml Output Urine Total 800 ml 1200 ml 400 ml Stool Total 400 ml 400 ml 400 ml Bladder Scan Volume Amount 585 ml Result Diagram: 11/11/16 0137 11/11/16 0137 Objective Remarks Laboratory Tests Test 11/09/16 03:25 11/09/16 05:32 11/09/16 16:11 11/10/16 05:45 Blood Gas Base Excess -2.1 mmol/L (-2-2) Arterial Blood pH 7.44 (7.380-7.420) Arterial Blood Partial Pressure CO2 32 mmHg (38-42) White Blood Count 24.1 TH/MM3 (4.0-11.0) 19.2 TH/MM3 (4.0-11.0) Red Blood Count 3.69 MIL/MM3 (4.50-5.90) 3.38 MIL/MM3 (4.50-5.90) Hemoglobin 11.0 GM/DL (13.0-17.0) 9.9 GM/DL (13.0-17.0) Hematocrit 33.3 % (39.0-51.0) 30.4 % (39.0-51.0) Neutrophils (%) (Auto) 94.2 % (16.0-70.0) 93.5 % (16.0-70.0) Lymphocytes (%) (Auto) 2.2 % (9.0-44.0) 3.2 % (9.0-44.0) Neutrophils # (Auto) 22.7 TH/MM3 (1.8-7.7) 17.9 TH/MM3 (1.8-7.7) Lymphocytes # (Auto) 0.5 TH/MM3 (1.0-4.8) 0.6 TH/MM3 (1.0-4.8) Neutrophils % (Manual) 89 % (16-70) 87 % (16-70) Neutrophils # (Manual) 24.1 TH/MM3 (1.8-7.7) 18.2 TH/MM3 (1.8-7.7) Metamyelocytes 3 % (0-1) 2 % (0-1) Myelocytes 3 % (0-0) Blood Urea Nitrogen 46 MG/DL (7-18) Random Glucose 184 MG/DL (74-106) Calcium Level 6.9 MG/DL (8.5-10.1) Chloride Level 109 MEQ/L (98-107) Estimat Glomerular Filtration Rate 64 ML/MIN (>89) Protein Corrected Calcium 7.1 MG/DL (8.5-10.1) C-Reactive Protein 3.66 MG/DL (0.00-0.30) Procalcitonin 1.64 ng/mL (0.00-0.50) Lymphocytes % 4 % (9-44) Test 11/10/16 05:48 11/11/16 01:37 11/11/16 03:32 Blood Urea Nitrogen 47 MG/DL (7-18) 49 MG/DL (7-18) Random Glucose 182 MG/DL (74-106) 182 MG/DL (74-106) Calcium Level 7.5 MG/DL (8.5-10.1) 7.2 MG/DL (8.5-10.1) Chloride Level 109 MEQ/L (98-107) 113 MEQ/L (98-107) Estimat Glomerular Filtration Rate 72 ML/MIN (>89) 65 ML/MIN (>89) Phenytoin (Dilantin) Level 5.1 MCG/ML (10.0-20.0) 5.8 MCG/ML (10.0-20.0) Valproic Acid (Depakene) Level 43 MCG/ML (50-100) 31 MCG/ML (50-100) White Blood Count 15.0 TH/MM3 (4.0-11.0) Red Blood Count 2.88 MIL/MM3 (4.50-5.90) Hemoglobin 8.6 GM/DL (13.0-17.0) Hematocrit 26.2 % (39.0-51.0) Platelet Count 147 TH/MM3 (150-450) Total Protein 6.3 GM/DL (6.4-8.2) Sodium Level 147 MEQ/L (136-145) Protein Corrected Calcium 7.6 MG/DL (8.5-10.1) Arterial Blood pH 7.48 (7.380-7.420) Arterial Blood Partial Pressure CO2 32 mmHg (38-42) Blood Gas Hemoglobin 9.4 G/DL (12.0-16.0) Medications and IVs GENERAL: SKIN: Warm and dry. HEAD: Atraumatic. Normocephalic. EYES: Pupils equal and round. No scleral icterus. No injection or drainage. ENT: No nasal bleeding or discharge. Mucous membranes pink and moist. NECK: Trachea midline. No JVD. CARDIOVASCULAR: Regular rate and rhythm. RESPIRATORY: No accessory muscle use. Clear to auscultation. Breath sounds equal bilaterally. GASTROINTESTINAL: Abdomen soft, non-tender, nondistended. Hepatic and splenic margins not palpable. MUSCULOSKELETAL: Extremities without clubbing, cyanosis, or edema. No obvious deformities. NEUROLOGICAL: Awake and alert. No obvious cranial nerve deficits. Motor grossly within normal limits. Five out of 5 muscle strength in the arms and legs. Normal speech. PSYCHIATRIC: Appropriate mood and affect; insight and judgment normal. Assessment and Plan Assessment and Plan RESPIRATORY FAILURE ENCEPHALOPATHY PLAN VENT SUPPORT PULM. TOILET WEAN OFF VENT TOLERATED Linda Mckeon MD Nov 11, 2016 15:41
[2016-11-11] MEDS: PANTOPRAZOLE SODIUM 40 MG VIAL IV PUSH SCH (16:13)
[2016-11-11] MEDS: VALPROATE IV SCH ×3 (16:14→23:40)
[2016-11-11] MEDS: SODIUM CHLORIDE 0.9% IV SCH ×3 (16:14→23:40)
--- NOTE | 2016-11-11 17:13 | HHI.CCPN ---
Subjective Remarks/Hospital Course Hospital Course: This is a 66-year-old man with history of diabetes, hypertension, dyslipidemia who about a month ago started having difficulty with balance with shuffling type of gait and resting tremor along with recent cognitive decline as well. His initial admission was on 10/06/16, as initial workup was negative patient was admitted to psych unit on 10/06/16 for suicidal ideations and altered mental status. He was evaluated by neurology Dr Branham, possibility of Parkinsonian symptoms and vitamin B 12 deficiency was entertained, but there was no improvement with treatment. He was re admitted to hospitalist service with worsening mental status on 10/25/16. Per Dr. Branham, MRI showed possible cerebritis. Differential included Creutzfeldt-Ministerio. But 14-3-3 protein for Creutzfeldt-Ministerio was negative. Currently on acyclovir for possibility of viral cerebritis. EEG done 10/24/16 showed generalized epileptiform activity. Patient was placed on Cerebyx, Keppra. Keppra was DCd due to rash and currently patient is on Cerebyx and Vimpat. Repeat EEGs from 10/31/16 and today shows continued seizure activity/subclinical seizures. Patient continues to be encephalopathic not responding. EEG today shows continued seizure activity indicating status epilepticus. Critical-care medicine was consulted by Dr. Branham today for continuous Versed infusion after intubation I evaluated the patient in ICU. He barely opens his eyes to painful stimuli localizes with right upper extremity withdrawal of any other extremities. Discussed with Dr. Branham multiple times. In his opinion, this appears to be a autoimmune encephalitis less likely to be infectious. Anti-NMDA receptor antibody ordered. Per Dr. Branham D/D possibly paraneoplastic, vasculitic or NMDA- receptor encephalitis. Currently patient is on IV Solu-Medrol and IVIG had been ordered by Dr. Branham. Initiate continuous EEG monitoring. TTP/HUS unlikely, but patient has E Coli UTI, I have asked for peripheral smear review by pathologist Subjective: 11/02: remains encephalopathic, but also very deeply sedated on versed drip. continuous EEG with intermittent sharp spikes that correspond with rhythmic neck movement. neurology adding additional anti-epileptics. peripheral smear without Schistocytes. currently receiving IVIG for possible auto-immune encephalopathy. 11/03 Patient remains sedated and intubated. Afebrile. 11/04 Patient remains intubated and sedated with Versed 10mg/hr. Tmax 100.6 11/05 No events overnight. On Versed drip for sedation, no seizures overnight. Patient is on continuous EEG monitoring. T: 101.0 last night. 11/06 Patient is sedated with Versed and Fentanyl. No seizures overnight. Afebrile. 11/07 Patient remains sedated and intubated. Afebrile. No recurrent seizures overnight. 11/08 TMax 99.6. The patient was noted to be on sedation vacation, EEG was being performed patient was noted to have subclinical seizures persistent. The patient was immediately bolused with 5 mg IV.Versed infusion continued at 8 mg/ h noted cessation of subclinical seizures and the patient continues to be monitored via EEG. Noted phenytoin and valproic acid levels were noted subtherapeutic today. 11/09 TMax 100.7. No further sedation holiday per Neurology due to ongoing subclinical seizure activity.the patient continues on AED's. AED levels pending in am.The patient remained on continuous EEG monitoring throughout the night with cessation of subclinical seizure activity. 11/10: No acute events overnight. EEG performed today. Propofol infusion added to medication regimen. Objective Vital Signs Date Time Temp Pulse Resp B/P (MAP) Pulse Ox O2 Delivery O2 Flow Rate FiO2 11/11/16 16:00 98.7 90 17 132/63 (86) 98 11/11/16 16:00 35 Intake and Output 11/11/16 11/11/16 11/12/16 08:00 16:00 00:00 Intake Total 1540 ml 315 ml 211 ml Output Total 800 ml Balance 740 ml 315 ml 211 ml Result Diagram: 11/11/16 0137 11/11/16 0137 Other Results Laboratory Tests Test 11/11/16 03:32 Blood Gas Puncture Site RT BRACHIAL Blood Gas Patient Temperature 98.6 Blood Gas HCO3 24 mmol/L (22-26) Blood Gas Base Excess 0.4 mmol/L (-2-2) Blood Gas Oxygen Saturation 95 % (90-100) Arterial Blood pH 7.48 (7.380-7.420) Arterial Blood Partial Pressure CO2 32 mmHg (38-42) Arterial Blood Partial Pressure O2 97 mmHg (61-120) Arterial Blood Oxygen Content 12.7 Vol % (12.0-20.0) Arterial Blood Carboxyhemoglobin 1.6 % (0-4) Arterial Blood Methemoglobin 1.2 % (0-2) Blood Gas Hemoglobin 9.4 G/DL (12.0-16.0) Oxygen Delivery Device VENTILATOR Blood Gas Ventilator Setting COMMENT Blood Gas Inspired Oxygen 35 % Imaging Last Impressions Chest X-Ray 11/09/16 0600 Signed Impressions: Service Date/Time: November 05:56 - CONCLUSION: 1. Stable ETT and NGT. 2. Stable low lung volumes with mild bibasilar airspace disease, likely atelectasis. 3. No significant interval change. Humphrey Dudley MD Brain MRI 11/07/16 0000 Signed Impressions: Service Date/Time: Monday, November 07, 2016 11:17 - CONCLUSION: 1. Continued subtle signal abnormality involving the pinto-white junction in the right occipital and right parietal regions. There has been no significant change when compared to the prior exam. Kranthi Lloyd MD Upper Extremity Ultrasound 11/04/16 0000 Signed Impressions: Service Date/Time: Friday, November 04, 2016 18:24 - CONCLUSION: Occlusion of the cephalic vein. The other veins are patent. Everett Block MD Lower Extremity Ultrasound 11/03/16 0000 Signed Impressions: Service Date/Time: Thursday, November 03, 2016 15:19 - CONCLUSION: Negative for deep venous thrombosis. Rahat Frey MD FACR Chest CT 11/01/16 0000 Signed Impressions: Service Date/Time: Tuesday, November 01, 2016 15:59 - CONCLUSION: Minimal nonspecific adenopathy the bibasilar parenchymal changes worse on the left. Rahat Frey MD FACR Abdomen/Pelvis CT 11/01/16 0000 Signed Impressions: Service Date/Time: Tuesday, November 01, 2016 16:04 - CONCLUSION: Nonspecific minimal bowel wall thickening transverse colon. There are no ancillary signs of malignancy. Rahat Frey MD FACR Lumbar Puncture Fluoroscopy 10/26/16 0000 Signed Impressions: Service Date/Time: October 12:24 - CONCLUSION: Uncomplicated fluoroscopically guided cervical puncture. Kranthi Lloyd MD Last Impressions Chest X-Ray 11/08/16 0000 Signed Impressions: Service Date/Time: Tuesday, November 08, 2016 03:36 - CONCLUSION: 1. Stable ETT and NGT. 2. Low lung volumes with mild bibasilar airspace disease, likely atelectasis. 3. No significant interval change. Humphrey Dudley MD Brain MRI 11/07/16 Signed Impressions: Service Date/Time: Monday, November 07, 2016 11:17 - CONCLUSION: 1. Continued subtle signal abnormality involving the pinto-white junction in the right occipital and right parietal regions. There has been no significant change when compared to the prior exam. Kranthi Lloyd MD Upper Extremity Ultrasound 11/04/16 Signed Impressions: Service Date/Time: Friday, November 04, 2016 18:24 - CONCLUSION: Occlusion of the cephalic vein. The other veins are patent. Everett Block MD Lower Extremity Ultrasound 11/03/16 Signed Impressions: Service Date/Time: Thursday, November 03, 2016 15:19 - CONCLUSION: Negative for deep venous thrombosis. Rahat Frey MD FACR Chest CT 11/01/16 Signed Impressions: Service Date/Time: Tuesday, November 01, 2016 15:59 - CONCLUSION: Minimal nonspecific adenopathy the bibasilar parenchymal changes worse on the left. Rahat Frey MD FACR Abdomen/Pelvis CT 11/01/16 Signed Impressions: Service Date/Time: Tuesday, November 01, 2016 16:04 - CONCLUSION: Nonspecific minimal bowel wall thickening transverse colon. There are no ancillary signs of malignancy. Rahat Frey MD FACR Lumbar Puncture Fluoroscopy 10/26/16 Signed Impressions: Service Date/Time: October 12:24 - CONCLUSION: Uncomplicated fluoroscopically guided cervical puncture. Kranthi Lloyd MD Last Impressions Chest X-Ray 11/05/16 Signed Impressions: Service Date/Time: Saturday, November 05, 2016 09:29 - CONCLUSION: Interval development of atelectasis right lung base. Lemuel Eastman MD Upper Extremity Ultrasound 11/04/16 Signed Impressions: Service Date/Time: Friday, November 04, 2016 18:24 - CONCLUSION: Occlusion of the cephalic vein. The other veins are patent. Everett Block MD Lower Extremity Ultrasound 9/1/17 0000 Signed Impressions: Service Date/Time: Thursday, November 03, 2016 15:19 - CONCLUSION: Negative for deep venous thrombosis. Rahat Frey MD FACR Chest CT 11/01/16 0000 Signed Impressions: Service Date/Time: Tuesday, November 01, 2016 15:59 - CONCLUSION: Minimal nonspecific adenopathy the bibasilar parenchymal changes worse on the left. Rahat Frey MD FACR Abdomen/Pelvis CT 11/01/16 0000 Signed Impressions: Service Date/Time: Tuesday, November 01, 2016 16:04 - CONCLUSION: Nonspecific minimal bowel wall thickening transverse colon. There are no ancillary signs of malignancy. Rahat Frey MD FACR Brain MRI 10/31/16 0000 Signed Impressions: Service Date/Time: Monday, October 31, 2016 10:51 - CONCLUSION: 1. Subtle signal abdomen only at the pinto-white junction in the right hemisphere as above. The findings may reflect encephalitis or cerebritis Kranthi Lloyd MD Lumbar Puncture Fluoroscopy 10/26/16 0000 Signed Impressions: Service Date/Time: October 12:24 - CONCLUSION: Uncomplicated fluoroscopically guided cervical puncture. Kranthi Lloyd MD Objective Remarks GENERAL: This is a well developed , well nourished middle-aged male, lying in bed, intubated, and sedated. SKIN: Warm and dry. No lesions noted. HEENT: Normocephalic. Pupils equal 2 mm reactive. orotracheally intubated CARDIOVASCULAR: Regular rate and rhythm. No murmur appreciated. RESPIRATORY: No accessory muscle use. Clear to auscultation. Breath sounds equal bilaterally. GASTROINTESTINAL: Abdomen soft, non-tender, nondistended. MUSCULOSKELETAL: No obvious deformities. No clubbing or cyanosis. No edema. NEUROLOGICAL: GCS 3T.Deeply sedated on versed infusion. Pupils 2 mm reactive. 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 The findings may reflect encephalitis or cerebritis -11/07 repeat MRI brain continued subtle signal abnormality involving pinto/white matter junction in right occiput total and right parietal regions. No change from previous MRI -9/6 Continuous EEG, noted subclinical seizures-resolution with deep sedation Versed 8 mg/hour - Continue IV Cerebyx 100mg Q6 Vimpat, Depakote. 11/08 Monitor levels Dilantin level: 5.0, Depakote level 30 11/05. Check levels today - Workup negative for infectious encephalitis including CJD - Ongoing workup for autoimmune encephalitis, anti-NMDA receptor antibody pending - Continue IV Solu-Medrol 125mg IV Q6 and IVIG per Dr. Branham - TTP/HUS unlikely given lack of schistocytes on peripheral smear 11/01 -Hold all sedation vacations per Dr. Branham, due to active seizure activity -11/10 Add Propofol infusion RESP: Acute hypoxic and hypercarbic respiratory failure - Intubated for failure to protect airway from status epilepticus - PRVC 16/550/5/IT;1 35%, and ICU vent bundle - DuoNeb every 6 hours and when necessary - HOLD SBT / CPAP trials at this time, maintain sedation secondary to active seizure activity -CXR 11/08: Atelectasis right lung base -ETT day , plan discussion with family regarding possible tracheostomy CV: -Monitor HR and BP keep MAP>65mmHg GI: - IV Protonix for GI prophylaxis -Continue tube feeds- Glucerna 1.5 @ 50ml/hr @ goal - Bowel Regimen : Acute kidney injury Hypocalcemia - Monitor renal function, - electrolytes replacement as needed ID: Encephalitis is probably noninfectious E Coli UTI Gram negative bacteremia Pneumonia Continue with abx (Cefepime, Levaquin) ID is following monitor for isgns of infections ( Fever, WBC) - Blood,sputum from 11/05: Escherichia coli, sputum cx 11/05: Escherichia coli, Staph Aureus, Enterobacter Aerogenes -Urine cx 11/06: Escherichia coli - TTP/HUS unlikely given negative peripheral smear for schistocytes -ID following-Dr. Mackay HEME: Thrombocytopenia - Monitor CBC, CMP, coags, Fibrinogen level 365 11/05, Heme is following -HIT panel is negative ENDO: Type 2 diabetes - Electrolyte replacement per protocol - Increase SSI (High scale) Levemir 14 units BID PROPH: - Bilateral lower extremity SCDs. Lovenox SQ -US RUE: Occlusion of the cephalic vein. -US LE b/L: No DVT - IV Protonix LINES: - Utilize peripheral IVs Dispo: Discussed with Mrs. Luong and updated her regarding patients current medical status. Continuation of obtaining therapuetic AED levels and reinitiation of CPAP trials, when clinically appropriate Level 3 Leslie Smyth MD Nov 11, 2016 17:13
[2016-11-11] MEDS ORDERED: CALCIUM GLUCONATE INJ 2 GM in SODIUM CHLORIDE 0.9% INJ 100 ML IV ONE (18:00)
[2016-11-11] MEDS: ACETAMINOPHEN SUSP 160 MG/5 ML UDC NG PRN (20:35)
[2016-11-12] VITALS (33 sets, daily range): BP systolic 83–121; BP diastolic 51–66; PULSE 61–77; RESP 16–17; TEMP 97–99.6; O2SAT 98–100
[2016-11-12] MEDS: CEFEPIME INJ 2,000 MG in SODIUM CHLORIDE 0.9% INJ 100 ML IV SCH ×3 (01:21→17:07)
[2016-11-12] MEDS: methylPREDNISolone SOD SUCC 125 MG/2 ML VIAL IV SCH ×4 (01:21→20:23)
[2016-11-12] MEDS: LACOSAMIDE INJ 100 MG in SODIUM CHLORIDE 0.9% INJ 100 ML IV SCH ×4 (02:19→20:48)
[2016-11-12] MEDS: SODIUM CHLORIDE 0.9% IV SCH ×6 (03:59→23:03)
[2016-11-12] MEDS: VALPROATE IV SCH ×6 (03:59→23:03)
--- NOTE | 2016-11-12 04:47 | RADRPT ---
EXAM DATE/TIME: 11/12/2016 03:47 [facility] COMPARISON: CHEST SINGLE AP, November 10, 2016, 20:12. INDICATIONS : Evaluate lung status, respiratory failure. MEDICAL HISTORY : None. SURGICAL HISTORY : None. ENCOUNTER: Subsequent ACUITY: 1 week PAIN SCORE: Non-responsive. LOCATION: Bilateral chest FINDINGS: Bilateral perihilar and basilar consolidation persists, right more so than left. A small to moderate right pleural effusion is present, larger than before. No pneumothorax. Heart size stable, within normal limits. Endotracheal tube tip is approximately 5 cm above the alice. There is a nasogastric tube coiled in t he stomach. CONCLUSION: Bilateral perihilar infiltrates and right small to moderate pleural effusion, all slightly worse in t he interim. Madhav Oneil MD on November 12, 2016 at 4:45 Board Certified Radiologist. This report was verified electronically.
[2016-11-12] MEDS: INSULIN NovoLIN REGULAR SUPPLEMENTAL SCALE SQ SCH ×4 (04:50→23:00)
[2016-11-12] MEDS: FOSPHENYTOIN SODIUM 100 MG PE/2 ML VIAL IV SCH ×4 (04:51→23:04)
[2016-11-12] MEDS: MIDAZOLAM 100 MG/NS 100 ML DRIP Premix IV PRN ×2 (04:52→14:40)
[2016-11-12 06:10] LABS: BLOOD GAS BASE EXCESS 0.6 mmol/L (-2-2); BLOOD GAS CARBOXYHEMOGLOBIN 1.7 % (0-4); BLOOD GAS HCO3 24 mmol/L (22-26); BLOOD GAS O2 HGB SATURATION 95 % (90-100); BLOOD GAS PCO2 33 mmHg (38-42); BLOOD GAS PO2 87 mmHg (61-120); BLOOD GAS TOTAL HGB 8.9 G/DL (12.0-16.0); TEMP CORR TO 98.6
[2016-11-12 06:11] LABS: CRITICAL VALUE NO; DRAW SITE RT RADIAL; FIO2 35 %; NUMBER OF ARTERIAL PUNCTURES 1; OXYGEN DEVICE VENT; STAT NO; ULNAR PULSE PRESENT; VENT SETTINGS SEE COMMENTS
[2016-11-12 06:23] LABS: BICARBONATE 21.5 MEQ/L (21.0-32.0); MAGNESIUM 2.1 MG/DL (1.5-2.5); POTASSIUM 4.8 MEQ/L (3.5-5.1)
[2016-11-12 06:47] LABS: CALCIUM-PROTEIN CORRECTED 7.6 MG/DL (8.5-10.1)
[2016-11-12] MEDS: DOCUSATE SODIUM 100 MG/10 ML UDC PO SCH ×2 (08:18→20:23)
[2016-11-12] MEDS: SODIUM CHLORIDE 0.9% FLUSH 10 ML FLUSH IV FLUSH SCH ×2 (08:18→20:24)
[2016-11-12] MEDS: LACTULOSE SYRUP 20 GM/30 ML CUP PO SCH ×3 (08:18→17:06)
[2016-11-12] MEDS: LEVOFLOXACIN 500 MG TAB PO SCH (08:18)
[2016-11-12] MEDS: SENNOSIDES SYRUP 8.8 MG/5 ML CUP PO SCH (08:18)
[2016-11-12] MEDS: CHLORHEXIDINE 0.12% (ORAL KIT) 15 ML CUP MT SCH ×2 (08:18→20:24)
[2016-11-12] MEDS: ENOXAPARIN SODIUM 40 MG/0.4 ML SYRINGE SQ SCH (08:19)
--- NOTE | 2016-11-12 08:22 | HHI.PR ---
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 Branham to consider and f/u dilantin/depakote pending Subjective Subjective Comments No acute events reported No headache No chest pain No dyspnea Active Medications Current Medications Medications (Trade) Dose Ordered Sig/Alyssa Route Start Time Stop Time Status Last Admin (NS Flush) 2 ml UNSCH PRN IV FLUSH 10/25/16 00:45 (NS Flush) 2 ml BID IV FLUSH 10/25/16 09:00 11/11/16 20:34 (Zofran Inj) 4 mg Q6H PRN IVP 10/25/16 00:45 (Narcan Inj) 0.4 mg UNSCH PRN IV 10/25/16 00:45 (Ativan Inj) 1 mg Q6H PRN IV 10/26/16 21:30 11/08/16 17:34 (Vasotec Inj) 1.25 mg Q6H PRN IV PUSH 10/26/16 21:30 11/08/16 18:33 (Catapres-Tts 0.1mg Patch.7d) 1 patch Q7D T-DERMAL 10/29/16 16:00 11/05/16 15:07 Miscellaneous Information 1 Q7D T-DERMAL 11/05/16 16:00 11/05/16 15:07 Lacosamide 100 mg/ Sodium Chloride 110 ml @ 110 mls/hr Q6H IV 11/01/16 15:00 11/12/16 02:19 (Peridex 0.12% Liq) 15 ml BID@08,20 MT 11/01/16 20:00 11/11/16 20:33 Midazolam HCl 100 ml @ 2 mls/hr TITRATE PRN IV 11/01/16 12:30 11/12/16 04:52 (Duoneb Neb) 1 ampule Q6HR NEB PRN NEB 11/01/16 13:45 11/04/16 20:39 (Colace Liq) 100 mg Q12HR PO 11/01/16 21:00 11/11/16 20:34 (Protonix Inj) 40 mg Q24H IV PUSH 11/01/16 16:00 11/11/16 16:13 (Lovenox Inj) 40 mg Q24H SQ 11/02/16 09:00 Future hold 11/11/16 08:09 Potassium Chloride 100 ml @ 50 mls/hr Q2H PRN IV 11/01/16 14:00 Potassium Chloride 100 ml @ 50 mls/hr Q2H PRN IV 11/01/16 14:00 (K-Lyte Cl Eff) 50 meq UNSCH PRN PO 11/01/16 14:00 Potassium Chloride 100 ml @ 25 mls/hr UNSCH PRN IV 11/01/16 14:00 Potassium Chloride 100 ml @ 50 mls/hr Q2H PRN IV 11/01/16 14:00 Magnesium Sulfate 4 gm/Sodium Chloride 100 ml @ 50 mls/hr UNSCH PRN IV 11/01/16 14:00 (Mag-Ox) 800 mg UNSCH PRN PO 11/01/16 14:00 Magnesium Sulfate 2 gm/Sodium Chloride 100 ml @ 50 mls/hr UNSCH PRN IV 11/01/16 14:00 (K-Phos) 2,000 mg Q4H PRN PO 11/01/16 14:00 Sodium Phosphate 30 mmol/Sodium Chloride 250 ml @ 42 mls/hr UNSCH PRN IV 11/01/16 14:00 11/08/16 08:48 (K-Phos) 2,000 mg UNSCH PRN PO/TUBE 11/01/16 14:00 Potassium Phosphate 30 mmol/ Sodium Chloride 260 ml @ 42 mls/hr UNSCH PRN IV 11/01/16 14:00 (Tylenol 160 Mg/ 5 ml Liq) 325 mg Q6H PRN NG 11/01/16 14:00 11/11/16 20:35 (Senna Liq) 8.8 mg DAILY PO 11/05/16 09:00 11/11/16 08:08 (Lactulose Liq) 15 ml TID PO 11/05/16 09:00 11/11/16 17:08 (Levaquin) 500 mg DAILY PO 11/05/16 09:00 11/18/16 09:00 11/11/16 08:09 Fentanyl Citrate 250 ml @ 5 mls/hr TITRATE PRN IV 11/05/16 22:15 11/07/16 19:41 (Levemir Inj) 14 units Q12HR SQ 11/06/16 09:00 11/11/16 20:35 Cefepime HCl 2000 mg/Sodium Chloride 100 ml @ 200 mls/hr Q8H IV 11/06/16 18:00 11/12/16 20:00 11/12/16 01:21 (D50w (Vial) Inj) 50 ml UNSCH PRN IV 11/07/16 09:30 (Glucagon Inj) 1 mg UNSCH PRN OTHER 11/07/16 09:30 (NovoLIN R SUPPLEMENTAL SCALE) 1 Q6H SQ 11/07/16 11:00 11/12/16 04:50 (SoluMEDROL INJ) 60 mg Q6H IV 11/11/16 02:00 11/12/16 01:21 Valproate Sodium 600 mg/Sodium Chloride 106 ml @ 105 mls/hr Q4HR IV 11/11/16 16:00 11/12/16 03:59 (Cerebyx Inj) 200 mgpe Q6HR IV 11/11/16 18:00 11/12/16 04:51 Propofol 100 ml @ 15.3 mls/hr CONTINUOUS PRN IV 11/11/16 17:15 Allergies Allergies Coded Allergies penicillin G (Unverified Allergy, Severe, 10/17/16) Review of Systems All other ROS: ROS reviewed as documented in chart Exam I&O / VS Vital Signs Date Time Temp Pulse Resp B/P (MAP) Pulse Ox O2 Delivery O2 Flow Rate FiO2 11/12/16 08:12 100 35 11/12/16 06:00 65 11/12/16 04:21 100 35 11/12/16 04:00 65 11/12/16 04:00 35 11/12/16 04:00 97.0 65 16 115/62 (79) 99 11/12/16 02:00 72 11/12/16 00:20 99 35 11/12/16 00:00 35 11/12/16 00:00 99.6 77 16 110/54 (72) 99 11/12/16 00:00 76 11/11/16 22:00 81 11/11/16 22:00 99.8 11/11/16 20:05 94 35 11/11/16 20:00 35 11/11/16 20:00 86 11/11/16 20:00 101.9 86 16 121/63 (82) 96 11/11/16 18:00 82 11/11/16 16:00 98.7 90 17 132/63 (86) 98 11/11/16 16:00 35 11/11/16 16:00 90 11/11/16 15:12 98 35 11/11/16 14:00 90 11/11/16 12:13 96 35 11/11/16 12:00 35 11/11/16 12:00 98.5 86 16 111/57 (75) 95 11/11/16 12:00 86 11/11/16 10:00 86 11/11/16 09:02 94 35 Exam Comments intubated. on versed gtt's. coma state, ou 2mm sluggish, not following, no ext movement Objective Micro and Labs Laboratory Tests Test 11/12/16 05:08 11/12/16 05:53 Blood Urea Nitrogen 46 Creatinine 0.93 Random Glucose 187 Total Protein 6.0 Calcium Level 7.0 Phosphorus Level 2.9 Magnesium Level 2.1 Sodium Level 146 Potassium Level 4.8 Chloride Level 117 Carbon Dioxide Level 21.5 Anion Gap 8 Estimat Glomerular Filtration Rate 81 Protein Corrected Calcium 7.6 Blood Gas Puncture Site RT RADIAL Blood Gas Patient Temperature 98.6 Blood Gas HCO3 24 Blood Gas Base Excess 0.6 Blood Gas Oxygen Saturation 95 Arterial Blood pH 7.47 Arterial Blood Partial Pressure CO2 33 Arterial Blood Partial Pressure O2 87 Arterial Blood Oxygen Content 12.0 Arterial Blood Carboxyhemoglobin 1.7 Arterial Blood Methemoglobin 1.0 Blood Gas Hemoglobin 8.9 Oxygen Delivery Device VENT Blood Gas Ventilator Setting SEE COMMENTS Blood Gas Inspired Oxygen 35 Date/Time Source Procedure Growth Status 11/11/16 01:37 Blood Peripheral Aerobic Blood Culture Pending Received 11/11/16 01:37 Blood Peripheral Anaerobic Blood Culture Pending Received 10/26/16 13:00 Cerebral Spinal Fluid Lumbar Puncture Fungal Smear - Final NO FUNGAL ELEMENTS SEEN. Resulted 10/26/16 13:00 Cerebral Spinal Fluid Lumbar Puncture Fungal Culture - Preliminary NO GROWTH IN 2 WEEKS Resulted 11/05/16 09:15 Sputum Endotracheal Gram Stain - Final Complete 11/05/16 09:15 Sputum Culture - Final Staphylococcus Aureus Escherichia Coli Enterobacter Aerogenes Complete 11/06/16 03:00 Urine Catheterized Urine Urine Culture - Final NO GROWTH IN 48 HOURS. Complete Ady Martel MD Nov 12, 2016 08:22
[2016-11-12] MEDS: INSULIN DETEMIR 100 UNITS/ML VIAL SQ SCH ×2 (08:34→20:48)
[2016-11-12] MEDS ORDERED: PEPPERMINT OIL ONE ×2 (08:45)
[2016-11-12 10:13] LABS: HEMATOCRIT 21.7 % (39.0-51.0); MEAN CELL VOLUME 90.9 FL (80.0-100.0); MEAN CORPUSCULAR HEMOGLOBIN 30.6 PG (27.0-34.0); MEAN CORPUSCULAR HGB CONC 33.7 % (32.0-36.0); PLATELET COUNT 110 TH/MM3 (150-450); RED BLOOD COUNT 2.38 MIL/MM3 (4.50-5.90); RED CELL DISTRIBUTION WIDTH 13.3 % (11.6-17.2); WHITE BLOOD COUNT 8.7 TH/MM3 (4.0-11.0)
[2016-11-12 10:15] LABS: REVIEW FLAG FINAL
[2016-11-12] MEDS: PROPOFOL 1000 MG/100 ML INJ 100 ML IV PRN ×2 (10:44→21:04)
--- NOTE | 2016-11-12 14:09 | HHI.PR ---
Subjective Remarks ON THE VENTILATOR UNRESPONSIVE Objective Vital Signs Date Time Temp Pulse Resp B/P (MAP) Pulse Ox O2 Delivery O2 Flow Rate FiO2 11/12/16 13:00 62 16 92/54 (67) 100 11/12/16 12:32 100 35 11/12/16 12:30 64 16 94/54 (67) 99 11/12/16 12:00 35 11/12/16 12:00 64 11/12/16 12:00 97.5 64 16 103/58 (73) 99 11/12/16 11:30 66 16 119/65 (83) 99 11/12/16 11:00 63 16 96/54 (68) 100 11/12/16 10:00 62 16 108/59 (75) 100 11/12/16 10:00 62 11/12/16 09:30 63 16 92/55 (67) 100 11/12/16 09:00 62 17 102/60 (74) 100 11/12/16 08:30 66 16 101/58 (72) 100 11/12/16 08:12 100 35 11/12/16 08:00 35 11/12/16 08:00 64 11/12/16 08:00 97.5 64 16 91/53 (66) 100 11/12/16 07:30 64 16 95/51 (66) 100 11/12/16 07:00 65 16 83/51 (62) 100 11/12/16 06:00 65 11/12/16 04:21 100 35 11/12/16 04:00 65 11/12/16 04:00 35 11/12/16 04:00 97.0 65 16 115/62 (79) 99 11/12/16 02:00 72 11/12/16 00:20 99 35 11/12/16 00:00 35 11/12/16 00:00 99.6 77 16 110/54 (72) 99 11/12/16 00:00 76 11/11/16 22:00 81 11/11/16 22:00 99.8 11/11/16 20:05 94 35 11/11/16 20:00 35 11/11/16 20:00 86 11/11/16 20:00 101.9 86 16 121/63 (82) 96 11/11/16 18:00 82 11/11/16 16:00 98.7 90 17 132/63 (86) 98 11/11/16 16:00 35 11/11/16 16:00 90 11/11/16 15:12 98 35 I/O 11/11/16 11/11/16 11/11/16 11/12/16 11/12/16 11/12/16 06:59 14:59 22:59 06:59 14:59 22:59 Intake Total 1540 ml 315 ml 1696 ml 1178 ml 216 ml Output Total 800 ml 1200 ml 1050 ml Balance 740 ml 315 ml 496 ml 128 ml 216 ml IV Total 877 ml 315 ml 976 ml 518 ml 216 ml Tube Feeding 663 ml 720 ml 560 ml Other 100 ml Output Urine Total 400 ml 1000 ml 850 ml Stool Total 400 ml 200 ml 200 ml Bladder Scan Volume Amount 585 ml Result Diagram: 11/12/16 0910 11/12/16 0508 Objective Remarks GENERAL: SKIN: Warm and dry. HEAD: Atraumatic. Normocephalic. EYES: Pupils equal and round. No scleral icterus. No injection or drainage. ENT: No nasal bleeding or discharge. Mucous membranes pink and moist. NECK: Trachea midline. No JVD. CARDIOVASCULAR: Regular rate and rhythm. RESPIRATORY: No accessory muscle use. Clear to auscultation. Breath sounds equal bilaterally. GASTROINTESTINAL: Abdomen soft, non-tender, nondistended. Hepatic and splenic margins not palpable. MUSCULOSKELETAL: Extremities without clubbing, cyanosis, or edema. No obvious deformities. NEUROLOGICAL: Awake and alert. No obvious cranial nerve deficits. Motor grossly within normal limits. Five out of 5 muscle strength in the arms and legs. Normal speech. PSYCHIATRIC: Appropriate mood and affect; insight and judgment normal. Laboratory Tests Test 11/09/16 03:25 11/09/16 05:32 11/09/16 16:11 11/10/16 05:45 Blood Gas Base Excess -2.1 mmol/L (-2-2) Arterial Blood pH 7.44 (7.380-7.420) Arterial Blood Partial Pressure CO2 32 mmHg (38-42) White Blood Count 24.1 TH/MM3 (4.0-11.0) 19.2 TH/MM3 (4.0-11.0) Red Blood Count 3.69 MIL/MM3 (4.50-5.90) 3.38 MIL/MM3 (4.50-5.90) Hemoglobin 11.0 GM/DL (13.0-17.0) 9.9 GM/DL (13.0-17.0) Hematocrit 33.3 % (39.0-51.0) 30.4 % (39.0-51.0) Neutrophils (%) (Auto) 94.2 % (16.0-70.0) 93.5 % (16.0-70.0) Lymphocytes (%) (Auto) 2.2 % (9.0-44.0) 3.2 % (9.0-44.0) Neutrophils # (Auto) 22.7 TH/MM3 (1.8-7.7) 17.9 TH/MM3 (1.8-7.7) Lymphocytes # (Auto) 0.5 TH/MM3 (1.0-4.8) 0.6 TH/MM3 (1.0-4.8) Neutrophils % (Manual) 89 % (16-70) 87 % (16-70) Neutrophils # (Manual) 24.1 TH/MM3 (1.8-7.7) 18.2 TH/MM3 (1.8-7.7) Metamyelocytes 3 % (0-1) 2 % (0-1) Myelocytes 3 % (0-0) Blood Urea Nitrogen 46 MG/DL (7-18) Random Glucose 184 MG/DL (74-106) Calcium Level 6.9 MG/DL (8.5-10.1) Chloride Level 109 MEQ/L (98-107) Estimat Glomerular Filtration Rate 64 ML/MIN (>89) Protein Corrected Calcium 7.1 MG/DL (8.5-10.1) C-Reactive Protein 3.66 MG/DL (0.00-0.30) Procalcitonin 1.64 ng/mL (0.00-0.50) Lymphocytes % 4 % (9-44) Test 11/10/16 05:48 11/11/16 01:37 11/11/16 03:32 Blood Urea Nitrogen 47 MG/DL (7-18) 49 MG/DL (7-18) Random Glucose 182 MG/DL (74-106) 182 MG/DL (74-106) Calcium Level 7.5 MG/DL (8.5-10.1) 7.2 MG/DL (8.5-10.1) Chloride Level 109 MEQ/L (98-107) 113 MEQ/L (98-107) Estimat Glomerular Filtration Rate 72 ML/MIN (>89) 65 ML/MIN (>89) Phenytoin (Dilantin) Level 5.1 MCG/ML (10.0-20.0) 5.8 MCG/ML (10.0-20.0) Valproic Acid (Depakene) Level 43 MCG/ML (50-100) 31 MCG/ML (50-100) White Blood Count 15.0 TH/MM3 (4.0-11.0) Red Blood Count 2.88 MIL/MM3 (4.50-5.90) Hemoglobin 8.6 GM/DL (13.0-17.0) Hematocrit 26.2 % (39.0-51.0) Platelet Count 147 TH/MM3 (150-450) Total Protein 6.3 GM/DL (6.4-8.2) Sodium Level 147 MEQ/L (136-145) Protein Corrected Calcium 7.6 MG/DL (8.5-10.1) Arterial Blood pH 7.48 (7.380-7.420) Arterial Blood Partial Pressure CO2 32 mmHg (38-42) Blood Gas Hemoglobin 9.4 G/DL (12.0-16.0) Assessment and Plan Assessment and Plan RESPIRATORY FAILURE ENCEPHALOPATHY PLAN VENT SUPPORT PULM. TOILET WEAN OFF VENT TOLERATED Linda Mckeon MD Nov 12, 2016 14:09
--- NOTE | 2016-11-12 14:50 | HHI.CCPN ---
Subjective Remarks/Hospital Course This is a 66-year-old man with history of diabetes, hypertension, dyslipidemia who about a month ago started having difficulty with balance with shuffling type of gait and resting tremor along with recent cognitive decline as well. His initial admission was on 10/06/16, as initial workup was negative patient was admitted to psych unit on 10/06/16 for suicidal ideations and altered mental status. He was evaluated by neurology Dr Branham, possibility of Parkinsonian symptoms and vitamin B 12 deficiency was entertained, but there was no improvement with treatment. He was re admitted to hospitalist service with worsening mental status on 10/25/16. Per Dr. Branham, MRI showed possible cerebritis. Differential included Creutzfeldt-Ministerio. But 14-3-3 protein for Creutzfeldt-Ministerio was negative. Currently on acyclovir for possibility of viral cerebritis. EEG done 10/24/16 showed generalized epileptiform activity. Patient was placed on Cerebyx, Keppra. Keppra was DCd due to rash and currently patient is on Cerebyx and Vimpat. Repeat EEGs from 10/31/16 and today shows continued seizure activity/subclinical seizures. Patient continues to be encephalopathic not responding. EEG today shows continued seizure activity indicating status epilepticus. Critical-care medicine was consulted by Dr. Branham today for continuous Versed infusion after intubation I evaluated the patient in ICU. He barely opens his eyes to painful stimuli localizes with right upper extremity withdrawal of any other extremities. Discussed with Dr. Branham multiple times. In his opinion, this appears to be a autoimmune encephalitis less likely to be infectious. Anti-NMDA receptor antibody ordered. Per Dr. Branham D/D possibly paraneoplastic, vasculitic or NMDA- receptor encephalitis. Currently patient is on IV Solu-Medrol and IVIG had been ordered by Dr. Branham. Initiate continuous EEG monitoring. TTP/HUS unlikely, but patient has E Coli UTI, I have asked for peripheral smear review by pathologist 11/02: remains encephalopathic, but also very deeply sedated on versed drip. continuous EEG with intermittent sharp spikes that correspond with rhythmic neck movement. neurology adding additional anti-epileptics. peripheral smear without Schistocytes. currently receiving IVIG for possible au immune encephalopathy. 11/03 Patient remains sedated and intubated. Afebrile. 11/04 Patient remains intubated and sedated with Versed 10mg/hr. Tmax 100.6 11/05 No events overnight. On Versed drip for sedation, no seizures overnight. Patient is on continuous EEG monitoring. T: 101.0 last night. 11/06 Patient is sedated with Versed and Fentanyl. No seizures overnight. Afebrile. 11/07 Patient remains sedated and intubated. Afebrile. No recurrent seizures overnight. 11/08 TMax 99.6. The patient was noted to be on sedation vacation, EEG was being performed patient was noted to have subclinical seizures persistent. The patient was immediately bolused with 5 mg IV.Versed infusion continued at 8 mg/ h noted cessation of subclinical seizures and the patient continues to be monitored via EEG. Noted phenytoin and valproic acid levels were noted subtherapeutic today. 11/09 TMax 100.7. No further sedation holiday per Neurology due to ongoing subclinical seizure activity.the patient continues on AED's. AED levels pending in am.The patient remained on continuous EEG monitoring throughout the night with cessation of subclinical seizure activity. 11/10: No acute events overnight. EEG performed today. Propofol infusion added to medication regimen.\ Subjective 11/12: Maximum 101.9. Currently afebrile. Tolerating tube feeding. Positive BM. Objective Vital Signs Date Time Temp Pulse Resp B/P (MAP) Pulse Ox O2 Delivery O2 Flow Rate FiO2 11/12/16 13:00 62 16 92/54 (67) 100 11/12/16 12:32 35 11/12/16 12:00 97.5 Intake and Output 11/12/16 11/12/16 11/12/16 07:59 15:59 23:59 Intake Total 1178 ml 216 ml Output Total 1050 ml Balance 128 ml 216 ml Result Diagram: 11/12/16 0910 11/12/16 0508 Other Results Microbiology Date/Time Source Procedure Growth Status 11/11/16 01:37 Blood Peripheral Aerobic Blood Culture - Preliminary NO GROWTH IN 1 DAY Resulted 11/11/16 01:37 Blood Peripheral Anaerobic Blood Culture - Preliminary NO GROWTH IN 1 DAY Resulted 10/26/16 13:00 Cerebral Spinal Fluid Lumbar Puncture Fungal Smear - Final NO FUNGAL ELEMENTS SEEN. Resulted 10/26/16 13:00 Cerebral Spinal Fluid Lumbar Puncture Fungal Culture - Preliminary NO GROWTH IN 2 WEEKS Resulted 11/05/16 09:15 Sputum Endotracheal Gram Stain - Final Complete 11/05/16 09:15 Sputum Culture - Final Staphylococcus Aureus Escherichia Coli Enterobacter Aerogenes Complete 11/06/16 03:00 Urine Catheterized Urine Urine Culture - Final NO GROWTH IN 48 HOURS. Complete Imaging Last Impressions Chest X-Ray 11/12/16 0600 Signed Impressions: Service Date/Time: Saturday, November 12, 2016 03:47 - CONCLUSION: Bilateral perihilar infiltrates and right small to moderate pleural effusion, all slightly worse in the interim. Madhav Oneil MD Brain MRI 11/07/16 0000 Signed Impressions: Service Date/Time: Monday, November 07, 2016 11:17 - CONCLUSION: 1. Continued subtle signal abnormality involving the pinto-white junction in the right occipital and right parietal regions. There has been no significant change when compared to the prior exam. Kranthi Lloyd MD Upper Extremity Ultrasound 11/04/16 0000 Signed Impressions: Service Date/Time: Friday, November 04, 2016 18:24 - CONCLUSION: Occlusion of the cephalic vein. The other veins are patent. Everett Block MD Lower Extremity Ultrasound 11/03/16 0000 Signed Impressions: Service Date/Time: Thursday, November 03, 2016 15:19 - CONCLUSION: Negative for deep venous thrombosis. Rahat Frey MD FACR Chest CT 11/01/16 0000 Signed Impressions: Service Date/Time: Tuesday, November 01, 2016 15:59 - CONCLUSION: Minimal nonspecific adenopathy the bibasilar parenchymal changes worse on the left. Rahat Frey MD FACR Abdomen/Pelvis CT 11/01/16 0000 Signed Impressions: Service Date/Time: Tuesday, November 01, 2016 16:04 - CONCLUSION: Nonspecific minimal bowel wall thickening transverse colon. There are no ancillary signs of malignancy. Rahat Frey MD FACR Lumbar Puncture Fluoroscopy 10/26/16 0000 Signed Impressions: Service Date/Time: October 12:24 - CONCLUSION: Uncomplicated fluoroscopically guided cervical puncture. Kranthi Lloyd MD Objective Remarks GENERAL: 66-year-old male, lying in bed, intubated, and sedated. SKIN: Warm and dry. No lesions noted. HEENT: Normocephalic. Pupils equal 2 mm reactive. orotracheally intubated CARDIOVASCULAR: RRR. S1, S2 no S4. No murmur appreciated. RESPIRATORY: No accessory muscle use. Clear to auscultation. Breath sounds equal bilaterally. GASTROINTESTINAL: Abdomen soft, non-tender, nondistended. MUSCULOSKELETAL: No obvious deformities. No clubbing or cyanosis. No edema. NEUROLOGICAL: GCS 3T.Deeply sedated on multiples sedatives. Pupils 2 mm reactive. A/P Assessment and Plan NEURO/Psych: Status epilepticus Acute encephalopathy Probable autoimmune encephalitis Currently on propofol at 50 micrograms per kilogram an hour/midazolam drip at 10 mg an hour for sedation while intubated Goal of RASS -4 while actively seizing -10/31 MRI brain: Subtle signal abdomen only at the pinto-white junction in the right hemisphere as above. The findings may reflect encephalitis or cerebritis -11/07 repeat MRI brain continued subtle signal abnormality involving pinto/white matter junction in right occiput total and right parietal regions. No change from previous MRI -11/10 Continuous EEG, noted subclinical appears worse than 11/08 EEG - Continue IV fosphenytoin 100mg Q6, lacosamide 100 mg every 6 hours valproic acid 600 mill grams IV every 4 hours. Recheck levels 11/14 - Workup negative for infectious encephalitis including CJD - Ongoing workup for autoimmune encephalitis, anti-NMDA receptor antibody pending - Continue IV Solu-Medrol 60 mg IV Q6 and IVIG per Dr. Branham - TTP/HUS unlikely given lack of schistocytes on peripheral smear 11/01 -Hold all sedation vacations per Dr. Branham, due to active seizure activity RESP: Acute hypoxic and hypercarbic respiratory failure PRVC 16/550///35 Albuterol/ipratropium every 6 hours and when necessary - HOLD SBT / CPAP trials at this time, maintain sedation secondary to active seizure activity -CXR 11/08: Atelectasis right lung base CV: -Monitor HR and BP keep MAP>65mmHg Not requiring any interventions and/or vasopressors at the present time Continue clonidine patch 0.1 mg every week. GI: Hypoalbuminemia -Continue tube feeds- Glucerna 1.5 @ 50ml/hr @ goal Pantoprazole 40 mg IV daily for GI prophylaxis - Bowel Regimen with docusate sodium/senna twice a day C. difficile ordered today with lactulose 15 cc every 8 hours Renal/: Acute kidney injury Hypocalcemia - Monitor renal function, - electrolytes replacement as needed per ICU left leg protocol Currently stable ID: Encephalitis is probably noninfectious E Coli UTI E. Aerogenes Escherichia coli/staph aureus bacteremia Pneumonia Continue with abx (Cefepime, levofloxacin) ID is following monitor for isgns of infections ( Fever, WBC) - Blood,sputum from 11/05: Escherichia coli, sputum cx 11/05: Escherichia coli, Staph Aureus, Enterobacter Aerogenes -Urine cx 11/06: Escherichia coli - TTP/HUS unlikely given negative peripheral smear for schistocytes -ID following-Dr. Mackay. Discontinuing cefepime today. Currently on levofloxacin 500 mg daily and until 11/18 HEME: Thrombocytopenia Normocytic anemia Superficial thrombus cephalic vein - Monitor CBC, CMP, coags, Fibrinogen level 365 11/05, Heme was called and currently signed off -HIT panel is negative No indications for transfusion of blood product at this time ENDO: Type 2 diabetes Hyperglycemia secondary steroids Holding metformin 500 mg twice a day/home medication - Electrolyte replacement per protocol - Increase SSI (High scale Novulin N) Levemir 14 units BID PROPH: - Bilateral lower extremity SCDs. Anoxic. SQ -US RUE: Occlusion of the cephalic vein. -US LE b/L: No DVT - IV pantoprazole LINES: - Utilize peripheral IVs Level 3 Tc Roger MD Nov 12, 2016 14:50
[2016-11-12] MEDS ORDERED: RESP: ALBUTEROL 2.5 MG/3 ML NEB (PRN) NEB (15:15)
[2016-11-12] MEDS: RESP: ALBUTEROL 2.5 MG/IPRATROPIUM 0.5 MG NEB (SCH) NEB ×2 (15:56→20:54)
[2016-11-12] MEDS: [UNRECOGNIZED DRUG - OTHER] T-DERMAL SCH (16:00)
[2016-11-12 16:38] LABS: C. DIFF EPI 027 PRESUMPTIVE NEGATIVE (NEGATIVE)
[2016-11-12] MEDS: PANTOPRAZOLE SODIUM 40 MG VIAL IV PUSH SCH (16:39)
[2016-11-12] MEDS: cloNIDine HCL 0.1 MG/24 HR PATCH T-DERMAL SCH (16:43)
[2016-11-12] MEDS: SENNOSIDES SYRUP 8.8 MG/5 ML CUP NG SCH (20:23)
[2016-11-12] MEDS: FREE WATER G-TUBE SCH (20:25)
--- NOTE | 2016-11-12 22:26 | HHI.PR ---
Addendum to Inpatient Note Additional Information C.diff + start po vanco change levaquin to CFTX [place] Mackay MD Nov 12, 2016 22:26
[2016-11-12] MEDS: cefTRIAXone INJ 2,000 MG in SODIUM CHLORIDE 0.9% INJ 100 ML IV SCH (23:03)
[2016-11-12] MEDS: VANCOMYCIN 500 MG VIAL (FOR ORAL USE ONLY) PO SCH (23:04)
[2016-11-13] VITALS (29 sets, daily range): BP systolic 101–131; BP diastolic 55–70; PULSE 67–80; RESP 16–19; TEMP 97.9–98.9; O2SAT 94–100
[2016-11-13] MEDS: MIDAZOLAM 100 MG/NS 100 ML DRIP Premix IV PRN ×3 (01:38→21:27)
[2016-11-13] MEDS: LACOSAMIDE INJ 100 MG in SODIUM CHLORIDE 0.9% INJ 100 ML IV SCH ×4 (01:43→20:49)
[2016-11-13] MEDS: methylPREDNISolone SOD SUCC 125 MG/2 ML VIAL IV SCH ×4 (01:48→20:51)
[2016-11-13] MEDS: VALPROATE IV SCH ×6 (04:17→23:39)
[2016-11-13] MEDS: SODIUM CHLORIDE 0.9% IV SCH ×6 (04:17→23:39)
[2016-11-13] MEDS: FREE WATER G-TUBE SCH ×3 (04:20→20:53)
[2016-11-13] MEDS: INSULIN NovoLIN REGULAR SUPPLEMENTAL SCALE SQ SCH ×4 (04:20→23:00)
[2016-11-13] MEDS: FOSPHENYTOIN SODIUM 100 MG PE/2 ML VIAL IV SCH ×3 (04:31→16:31)
[2016-11-13] MEDS: VANCOMYCIN 500 MG VIAL (FOR ORAL USE ONLY) PO SCH ×4 (04:31→23:38)
--- NOTE | 2016-11-13 04:55 | HHI.CCPN ---
Subjective Remarks/Hospital Course This is a 66-year-old man with history of diabetes, hypertension, dyslipidemia who about a month ago started having difficulty with balance with shuffling type of gait and resting tremor along with recent cognitive decline as well. His initial admission was on 10/06/16, as initial workup was negative patient was admitted to psych unit on 10/06/16 for suicidal ideations and altered mental status. He was evaluated by neurology Dr Branham, possibility of Parkinsonian symptoms and vitamin B 12 deficiency was entertained, but there was no improvement with treatment. He was re admitted to hospitalist service with worsening mental status on 10/25/16. Per Dr. Branham, MRI showed possible cerebritis. Differential included Creutzfeldt-Ministerio. But 14-3-3 protein for Creutzfeldt-Ministerio was negative. Currently on acyclovir for possibility of viral cerebritis. EEG done 10/24/16 showed generalized epileptiform activity. Patient was placed on Cerebyx, Keppra. Keppra was DCd due to rash and currently patient is on Cerebyx and Vimpat. Repeat EEGs from 10/31/16 and today shows continued seizure activity/subclinical seizures. Patient continues to be encephalopathic not responding. EEG today shows continued seizure activity indicating status epilepticus. Critical-care medicine was consulted by Dr. Branham today for continuous Versed infusion after intubation I evaluated the patient in ICU. He barely opens his eyes to painful stimuli localizes with right upper extremity withdrawal of any other extremities. Discussed with Dr. Branham multiple times. In his opinion, this appears to be a autoimmune encephalitis less likely to be infectious. Anti-NMDA receptor antibody ordered. Per Dr. Branham D/D possibly paraneoplastic, vasculitic or NMDA- receptor encephalitis. Currently patient is on IV Solu-Medrol and IVIG had been ordered by Dr. Branham. Initiate continuous EEG monitoring. TTP/HUS unlikely, but patient has E Coli UTI, I have asked for peripheral smear review by pathologist 11/02: remains encephalopathic, but also very deeply sedated on versed drip. continuous EEG with intermittent sharp spikes that correspond with rhythmic neck movement. neurology adding additional anti-epileptics. peripheral smear without Schistocytes. currently receiving IVIG for possible au immune encephalopathy. 11/03 Patient remains sedated and intubated. Afebrile. 11/04 Patient remains intubated and sedated with Versed 10mg/hr. Tmax 100.6 11/05 No events overnight. On Versed drip for sedation, no seizures overnight. Patient is on continuous EEG monitoring. T: 101.0 last night. 11/06 Patient is sedated with Versed and Fentanyl. No seizures overnight. Afebrile. 11/07 Patient remains sedated and intubated. Afebrile. No recurrent seizures overnight. 11/08 TMax 99.6. The patient was noted to be on sedation vacation, EEG was being performed patient was noted to have subclinical seizures persistent. The patient was immediately bolused with 5 mg IV.Versed infusion continued at 8 mg/ h noted cessation of subclinical seizures and the patient continues to be monitored via EEG. Noted phenytoin and valproic acid levels were noted subtherapeutic today. 11/09 TMax 100.7. No further sedation holiday per Neurology due to ongoing subclinical seizure activity.the patient continues on AED's. AED levels pending in am.The patient remained on continuous EEG monitoring throughout the night with cessation of subclinical seizure activity. 11/10: No acute events overnight. EEG performed today. Propofol infusion added to medication regimen.\ 11/12: Maximum 101.9. Currently afebrile. Tolerating tube feeding. Positive BM. Subjective 11/13: Moved from room 526 to room 500 due to leaking window. Early afebrile. Diagnosed with C. difficile EPID O27 negative. Started on oral vancomycin per infectious disease. Otherwise no changes overnight. Objective Vital Signs Date Time Temp Pulse Resp B/P (MAP) Pulse Ox O2 Delivery O2 Flow Rate FiO2 11/13/16 04:00 35 11/13/16 03:55 98 11/13/16 02:00 71 11/13/16 00:00 97.9 16 108/60 (76) Result Diagram: 11/12/16 0910 11/12/16 0508 Other Results Microbiology Date/Time Source Procedure Growth Status 11/11/16 01:37 Blood Peripheral Aerobic Blood Culture - Preliminary NO GROWTH IN 1 DAY Resulted 11/11/16 01:37 Blood Peripheral Anaerobic Blood Culture - Preliminary NO GROWTH IN 1 DAY Resulted 10/26/16 13:00 Cerebral Spinal Fluid Lumbar Puncture Fungal Smear - Final NO FUNGAL ELEMENTS SEEN. Resulted 10/26/16 13:00 Cerebral Spinal Fluid Lumbar Puncture Fungal Culture - Preliminary NO GROWTH IN 2 WEEKS Resulted 11/05/16 09:15 Sputum Endotracheal Gram Stain - Final Complete 11/05/16 09:15 Sputum Culture - Final Staphylococcus Aureus Escherichia Coli Enterobacter Aerogenes Complete 11/06/16 03:00 Urine Catheterized Urine Urine Culture - Final NO GROWTH IN 48 HOURS. Complete Imaging Last Impressions Chest X-Ray 11/12/16 0600 Signed Impressions: Service Date/Time: Saturday, November 12, 2016 03:47 - CONCLUSION: Bilateral perihilar infiltrates and right small to moderate pleural effusion, all slightly worse in the interim. Madhav Oneil MD Brain MRI 11/07/16 0000 Signed Impressions: Service Date/Time: Monday, November 07, 2016 11:17 - CONCLUSION: 1. Continued subtle signal abnormality involving the pinto-white junction in the right occipital and right parietal regions. There has been no significant change when compared to the prior exam. Kranthi Lloyd MD Upper Extremity Ultrasound 11/04/16 0000 Signed Impressions: Service Date/Time: Friday, November 04, 2016 18:24 - CONCLUSION: Occlusion of the cephalic vein. The other veins are patent. Everett Block MD Lower Extremity Ultrasound 11/03/16 0000 Signed Impressions: Service Date/Time: Thursday, November 03, 2016 15:19 - CONCLUSION: Negative for deep venous thrombosis. Rahat Frey MD FACR Chest CT 11/01/16 0000 Signed Impressions: Service Date/Time: Tuesday, November 01, 2016 15:59 - CONCLUSION: Minimal nonspecific adenopathy the bibasilar parenchymal changes worse on the left. Rahat Frey MD FACR Abdomen/Pelvis CT 11/01/16 0000 Signed Impressions: Service Date/Time: Tuesday, November 01, 2016 16:04 - CONCLUSION: Nonspecific minimal bowel wall thickening transverse colon. There are no ancillary signs of malignancy. Rahat Frey MD FACR Lumbar Puncture Fluoroscopy 10/26/16 0000 Signed Impressions: Service Date/Time: October 12:24 - CONCLUSION: Uncomplicated fluoroscopically guided cervical puncture. Kranthi Lloyd MD Objective Remarks GENERAL: 66-year-old male, lying in bed, intubated, and sedated. SKIN: Warm and dry. No lesions noted. HEENT: Normocephalic. Pupils equal 2 mm reactive. orotracheally intubated CARDIOVASCULAR: RRR. S1, S2 no S4. No murmur appreciated. RESPIRATORY: Ms. breath sounds in the bases right greater than left. Few coarse crackles appreciated anteriorly. Symmetrical excursion. GASTROINTESTINAL: Abdomen soft, non-tender, nondistended. Bowel sounds are active MUSCULOSKELETAL: No obvious deformities. No significant peripheral edema. NEUROLOGICAL: GCS 3T.Deeply sedated on multiples sedatives. Pupils 5 mm bilaterally and reactive. A/P Assessment and Plan NEURO/Psych: Status epilepticus Acute encephalopathy Probable autoimmune encephalitis Currently on propofol at 10 micrograms per kilogram an hour/midazolam drip at 10 mg an hour for sedation while intubated Goal of RASS -4 while actively seizing -10/31 MRI brain: Subtle signal abdomen only at the pinto-white junction in the right hemisphere as above. The findings may reflect encephalitis or cerebritis -11/07 repeat MRI brain continued subtle signal abnormality involving pinto/white matter junction in right occiput total and right parietal regions. No change from previous MRI -11/10 Continuous EEG, noted subclinical appears worse than 11/08 EEG - Continue IV fosphenytoin 200mg Q6, lacosamide 100 mg every 6 hours valproic acid 600 mill grams IV every 4 hours Recheck levels 11/14 - Workup negative for infectious encephalitis - Ongoing workup for autoimmune encephalitis, anti-NMDA receptor antibody pending - follow up paraneoplastic antibodies and anti nmda antibody - neurology call lab 11/12/not back yet - Neurology recommends repeat MRI next week and consider brain bx if the labs for paraneoplastic and NMDA come back negative to further assess for Creutzfeldt Juanjo - Continue IV Solu-Medrol 60 mg IV Q6 per Dr. Branham/neurology - TTP/HUS unlikely given lack of schistocytes on peripheral smear 11/01 -Hold all sedation vacations per Dr. Branham, due to active seizure activity RESP: Acute hypoxic and hypercarbic respiratory failure PRVC 16/550/// Albuterol/ipratropium every 6 hours and when necessary - HOLD SBT / CPAP trials at this time, maintain sedation secondary to active seizure activity -CXR 11/12: Moderate right pleural effusion, atelectasis. CV: -Monitor HR and BP keep MAP>65mmHg Not requiring any interventions and/or vasopressors at the present time Continue clonidine patch 0.1 mg every week. GI: Hypoalbuminemia -Continue tube feeds- Glucerna 1.5 @ 50ml/hr @ goal Pantoprazole 40 mg IV daily for GI prophylaxis - Bowel Regimen with docusate sodium/senna twice a day C. difficile ordered today with lactulose 15 cc every 8 hours Renal/: Acute kidney injury Hypocalcemia - Monitor renal function, - electrolytes replacement as needed per ICU electrolyte protocol Currently stable ID: Encephalitis is probably noninfectious E Coli UTI E. Aerogenes Escherichia coli/staph aureus bacteremia Pneumonia C. difficile Continue with abx (Cefepime, levofloxacin) ID is following monitor for isgns of infections ( Fever, WBC) - Blood cultures 11/11 - no growth - Blood,sputum from 11/05: Escherichia coli, sputum cx 11/05: Escherichia coli, Staph Aureus, Enterobacter Aerogenes -Urine cx 10/30: Escherichia coli - TTP/HUS unlikely given negative peripheral smear for schistocytes -ID following-Dr. Mackay. Discontined cefepime 11/12. Restarted instead on ceftriaxone 11/12. Currently on levofloxacin 500 mg daily and until 11/18 Start oral vancomycin 500 every 6 hours for C. difficile +11/12 HEME: Thrombocytopenia Normocytic anemia Superficial thrombus cephalic vein/right - Monitor CBC, CMP, coags, Fibrinogen level 365 11/05, Heme was called and currently signed off -HIT panel is negative No indications for transfusion of blood product at this time ENDO: Type 2 diabetes Hyperglycemia secondary steroids Holding metformin 500 mg twice a day/home medication - Electrolyte replacement per protocol - SSI (High scale Novulin R) Levemir 14 units BID PROPH: - Bilateral lower extremity SCDs. Anoxic. SQ -US RUE: Occlusion of the cephalic vein. -US LE b/L: No DVT - IV pantoprazole LINES: - Utilize peripheral IVs Level 3 Tc Roger MD Nov 13, 2016 04:55
[2016-11-13] MEDS: CHLORHEXIDINE 0.12% (ORAL KIT) 15 ML CUP MT SCH ×2 (08:00→20:51)
[2016-11-13] MEDS: SENNOSIDES SYRUP 8.8 MG/5 ML CUP NG SCH ×2 (08:07→20:52)
[2016-11-13] MEDS: ENOXAPARIN SODIUM 40 MG/0.4 ML SYRINGE SQ SCH (08:07)
[2016-11-13] MEDS: LACTULOSE SYRUP 20 GM/30 ML CUP PO SCH ×3 (08:07→16:31)
[2016-11-13] MEDS: DOCUSATE SODIUM 100 MG/10 ML UDC PO SCH ×2 (08:07→20:52)
[2016-11-13] MEDS: INSULIN DETEMIR 100 UNITS/ML VIAL SQ SCH ×2 (09:00→20:53)
[2016-11-13] MEDS: SODIUM CHLORIDE 0.9% FLUSH 10 ML FLUSH IV FLUSH SCH ×2 (09:00→20:51)
[2016-11-13] MEDS: RESP: ALBUTEROL 2.5 MG/IPRATROPIUM 0.5 MG NEB (SCH) NEB ×3 (10:00→19:36)
[2016-11-13 10:55] LABS: AUTOMATED NEUTROPHIL # 10.9 TH/MM3 (1.8-7.7); BASOPHIL % 0.1 % (0.0-2.0); EOSINOPHIL % 0.2 % (0.0-4.0); HEMATOCRIT 27.7 % (39.0-51.0); LYMPH % 3.8 % (9.0-44.0); LYMPHOCYTE # 0.5 TH/MM3 (1.0-4.8); MEAN CELL VOLUME 92.3 FL (80.0-100.0); MEAN CORPUSCULAR HGB CONC 33.6 % (32.0-36.0); MONO % 7.6 % (0.0-8.0); NEUT % 88.3 % (16.0-70.0); PLATELET COUNT 135 TH/MM3 (150-450); RED CELL DISTRIBUTION WIDTH 13.8 % (11.6-17.2); WHITE BLOOD COUNT 12.4 TH/MM3 (4.0-11.0)
[2016-11-13 11:01] LABS: HEMO FLAGS AUTO DIFF
[2016-11-13 12:02] LABS: SCAN/DIFF AUTO DIFF CONFIRMED
--- NOTE | 2016-11-13 12:06 | HHI.IDPN ---
Subjective Subjective Remarks ID Xcover for Dr Nguyen remains on vent not much ETT secretions no fever x 2 days cont to have diarrha up [id number], C.diff was + yfday remains sedated Antibiotics Levaquin - stopped CFTX vancpo Po Past Medical History Hypertension Diabetes Dyslipidemia Depression Past Surgical History Umbilical hernia repair Allergies: Coded Allergies: penicillin G (Unverified Allergy, Severe, 10/17/16) Objective . Vital Signs Date Time Temp Pulse Resp B/P (MAP) Pulse Ox O2 Delivery O2 Flow Rate FiO2 11/13/16 10:25 100 35 11/13/16 06:00 69 11/13/16 04:00 68 11/13/16 04:00 98.2 68 18 126/66 (86) 98 11/13/16 04:00 35 11/13/16 03:55 98 35 11/13/16 02:00 71 11/13/16 00:58 100 35 11/13/16 00:00 35 11/13/16 00:00 68 11/13/16 00:00 97.9 71 16 108/60 (76) 100 11/12/16 22:00 69 11/12/16 20:55 99 35 11/12/16 20:00 67 11/12/16 20:00 35 11/12/16 20:00 97.6 67 17 104/55 (71) 99 11/12/16 18:00 66 17 100/59 (73) 98 11/12/16 18:00 66 11/12/16 17:30 63 16 102/63 (76) 99 11/12/16 17:00 65 16 95/53 (67) 99 11/12/16 16:30 64 16 105/59 (74) 99 11/12/16 16:00 35 11/12/16 16:00 68 11/12/16 16:00 97.9 68 16 121/66 (84) 100 11/12/16 15:56 100 35 11/12/16 15:30 64 16 115/62 (79) 100 11/12/16 15:00 62 16 102/56 (71) 100 11/12/16 14:30 62 16 97/59 (72) 100 11/12/16 14:00 64 11/12/16 14:00 61 16 89/53 (65) 100 11/12/16 13:00 62 16 92/54 (67) 100 11/12/16 12:32 100 35 11/12/16 12:30 64 16 94/54 (67) 99 11/12/16 12:00 35 11/12/16 12:00 64 11/12/16 12:00 97.5 64 16 103/58 (73) 99 . Laboratory Tests Test 11/12/16 09:10 11/13/16 10:25 White Blood Count 8.7 TH/MM3 12.4 TH/MM3 Red Blood Count 2.38 MIL/MM3 3.00 MIL/MM3 Hemoglobin 7.3 GM/DL 9.3 GM/DL Hematocrit 21.7 % 27.7 % Mean Corpuscular Volume 90.9 FL 92.3 FL Mean Corpuscular Hemoglobin 30.6 PG 31.0 PG Mean Corpuscular Hemoglobin Concent 33.7 % 33.6 % Red Cell Distribution Width 13.3 % 13.8 % Platelet Count 110 TH/MM3 135 TH/MM3 Mean Platelet Volume 9.3 FL 9.9 FL Neutrophils (%) (Auto) 88.3 % Lymphocytes (%) (Auto) 3.8 % Monocytes (%) (Auto) 7.6 % Eosinophils (%) (Auto) 0.2 % Basophils (%) (Auto) 0.1 % Neutrophils # (Auto) 10.9 TH/MM3 Lymphocytes # (Auto) 0.5 TH/MM3 Monocytes # (Auto) 0.9 TH/MM3 Eosinophils # (Auto) 0.0 TH/MM3 Basophils # (Auto) 0.0 TH/MM3 CBC Comment AUTO DIFF Laboratory Tests Test 11/12/16 05:08 11/13/16 10:25 Blood Urea Nitrogen 46 MG/DL 29 MG/DL Creatinine 0.93 MG/DL 0.79 MG/DL Random Glucose 187 MG/DL 183 MG/DL Total Protein 6.0 GM/DL 5.3 GM/DL Calcium Level 7.0 MG/DL 8.2 MG/DL Phosphorus Level 2.9 MG/DL 2.0 MG/DL Magnesium Level 2.1 MG/DL 2.0 MG/DL Sodium Level 146 MEQ/L 145 MEQ/L Potassium Level 4.8 MEQ/L 3.6 MEQ/L Chloride Level 117 MEQ/L 105 MEQ/L Carbon Dioxide Level 21.5 MEQ/L 34.4 MEQ/L Anion Gap 8 MEQ/L 6 MEQ/L Estimat Glomerular Filtration Rate 81 ML/MIN 98 ML/MIN Protein Corrected Calcium 7.6 MG/DL Albumin 1.9 GM/DL Alkaline Phosphatase 59 U/L Aspartate Amino Transf (AST/SGOT) 17 U/L Alanine Aminotransferase (ALT/SGPT) 14 U/L Total Bilirubin 0.2 MG/DL Ammonia 40 MCMOL/L Microbiology Date/Time Source Procedure Growth Status 11/11/16 01:37 Blood Peripheral Aerobic Blood Culture - Preliminary NO GROWTH IN 2 DAYS Resulted 11/11/16 01:37 Blood Peripheral Anaerobic Blood Culture - Preliminary NO GROWTH IN 2 DAYS Resulted 11/11/16 01:32 Blood Peripheral Aerobic Blood Culture - Preliminary NO GROWTH IN 2 DAYS Resulted 11/11/16 01:32 Blood Peripheral Anaerobic Blood Culture - Preliminary NO GROWTH IN 2 DAYS Resulted Imaging Last Impressions Chest X-Ray 11/12/16 0600 Signed Impressions: Service Date/Time: Saturday, November 12, 2016 03:47 - CONCLUSION: Bilateral perihilar infiltrates and right small to moderate pleural effusion, all slightly worse in the interim. Madhav Oneil MD Brain MRI 11/07/16 0000 Signed Impressions: Service Date/Time: Monday, November 07, 2016 11:17 - CONCLUSION: 1. Continued subtle signal abnormality involving the pinto-white junction in the right occipital and right parietal regions. There has been no significant change when compared to the prior exam. Kranthi Lloyd MD Upper Extremity Ultrasound 11/04/16 0000 Signed Impressions: Service Date/Time: Friday, November 04, 2016 18:24 - CONCLUSION: Occlusion of the cephalic vein. The other veins are patent. Everett Block MD Lower Extremity Ultrasound 11/03/16 0000 Signed Impressions: Service Date/Time: Thursday, November 03, 2016 15:19 - CONCLUSION: Negative for deep venous thrombosis. Rahat Frey MD FACR Chest CT 11/01/16 0000 Signed Impressions: Service Date/Time: Tuesday, November 01, 2016 15:59 - CONCLUSION: Minimal nonspecific adenopathy the bibasilar parenchymal changes worse on the left. Rahat Frey MD FACR Abdomen/Pelvis CT 11/01/16 0000 Signed Impressions: Service Date/Time: Tuesday, November 01, 2016 16:04 - CONCLUSION: Nonspecific minimal bowel wall thickening transverse colon. There are no ancillary signs of malignancy. Rahat Frey MD FACR Lumbar Puncture Fluoroscopy 10/26/16 0000 Signed Impressions: Service Date/Time: October 12:24 - CONCLUSION: Uncomplicated fluoroscopically guided cervical puncture. Kranthi Lloyd MD Physical Exam CONSTITUTIONAL/GENERAL: On the vent, looks comfortable. SKIN: No jaundice, rashes, or lesions. HEAD: Atraumatic. Normocephalic. EYES: Pupils equal and round and reactive. No scleral icterus. No injection or drainage. Fundi not examined. ENT: Hearing not tested. Nose without bleeding or purulent drainage. Orally intubated NECK: Trachea midline. Supple, nontender. CARDIOVASCULAR: Regular rate and rhythm without murmurs, gallops, or rubs. No JVD. Peripheral pulses symmetric. RESPIRATORY/CHEST: Coarse breath sounds bilaterally GASTROINTESTINAL: Abdomen soft, non-tender, nondistended. No hepato-splenomegaly , or palpable masses. No guarding. Bowel sounds present. Incontinent of large amount of liquid brown stool GENITOURINARY: Mcdaniel catheter in place with clear yellow urine MUSCULOSKELETAL: Extremities without clubbing, cyanosis, or edema. No mottling or clubbing. NEUROLOGICAL: Sedated, ? 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 Creutzfeldt ryann in differential, also possible autoimmune encepalitis such as NMDA, paraneoplastic repeat brain MRI negative 14-3-3 PROTEIN,CSF: LESS THAN 2 ng/mL - ASH neg, ESR wnl - MRI cw cerebritis/encephalitis clinicall progression of neurological symptoms HSV negative CSF with nl glc, protein, bordeline moncytic pleocytosis HIV negative Lymphopenia Progressive thrombocytopenia: improved Respiratory failure UTI, E.coli, bacteremic - deshpande S PNA: growing multiple GNRs (Enterobacter, E.coli), MSSA C.diff - new issue RECS: started on oral vancomycin; anticipate 14 days of oral vancomycin dc levaquin -stopped ydays cont CFTX to complete 14 days for bactremnic UTI however will stop eralier if diarrhea will be worsening/not improbving fu repeat BC Follow temps, WBC dw [place] Greene MD Nov 13, 2016 12:06
[2016-11-13] MEDS: PROPOFOL 1000 MG/100 ML INJ 100 ML IV PRN ×2 (12:08→21:19)
[2016-11-13 14:42] LABS: BLOOD UREA NITROGEN 38 MG/DL (7-18); GLOMERULAR FILTRATION RATE 105 ML/MIN (>89); MAGNESIUM 2.1 MG/DL (1.5-2.5)
[2016-11-13 14:43] LABS: ALKALINE PHOSPHATASE 57 U/L (45-117); ALT (GPT) 77 U/L (12-78); ANION GAP 8 MEQ/L (5-15); AST (GOT) 68 U/L (15-37); BICARBONATE 26.3 MEQ/L (21.0-32.0); CHLORIDE 116 MEQ/L (98-107); POTASSIUM 3.7 MEQ/L (3.5-5.1); SODIUM (NA) 150 MEQ/L (136-145); TOTAL BILIRUBIN ADULT 0.2 MG/DL (0.2-1.0)
[2016-11-13] MEDS: PANTOPRAZOLE SODIUM 40 MG VIAL IV PUSH SCH (16:30)
--- NOTE | 2016-11-13 19:43 | HHI.PR ---
Subjective Remarks ON THE VENTILATOR UNRESPONSIVE Objective Vital Signs Date Time Temp Pulse Resp B/P (MAP) Pulse Ox O2 Delivery O2 Flow Rate FiO2 11/13/16 18:00 79 11/13/16 17:30 79 18 131/69 (89) 97 11/13/16 17:00 77 17 128/70 (89) 96 11/13/16 17:00 77 11/13/16 16:30 78 11/13/16 16:30 78 19 123/66 (85) 97 11/13/16 16:00 75 11/13/16 16:00 35 11/13/16 16:00 75 16 117/67 (84) 97 11/13/16 15:38 97 35 11/13/16 14:30 74 11/13/16 14:00 75 11/13/16 13:00 77 11/13/16 12:30 75 11/13/16 12:30 75 18 120/64 (82) 100 11/13/16 12:00 75 18 101/55 (70) 100 11/13/16 12:00 35 11/13/16 12:00 75 11/13/16 11:30 78 16 127/66 (86) 100 11/13/16 11:30 78 11/13/16 11:00 79 11/13/16 11:00 79 16 124/65 (84) 100 11/13/16 10:30 74 17 119/65 (83) 100 11/13/16 10:30 74 11/13/16 10:25 100 35 11/13/16 10:00 74 11/13/16 10:00 74 17 120/65 (83) 100 11/13/16 09:30 73 17 119/64 (82) 100 11/13/16 09:30 73 11/13/16 09:00 72 11/13/16 09:00 72 17 128/64 (85) 100 11/13/16 08:30 71 11/13/16 08:30 71 17 127/66 (86) 100 11/13/16 08:00 35 11/13/16 08:00 67 11/13/16 08:00 67 17 114/64 (81) 100 11/13/16 06:00 69 11/13/16 04:00 68 11/13/16 04:00 98.2 68 18 126/66 (86) 98 11/13/16 04:00 35 11/13/16 03:55 98 35 11/13/16 02:00 71 11/13/16 00:58 100 35 11/13/16 00:00 35 11/13/16 00:00 68 11/13/16 00:00 97.9 71 16 108/60 (76) 100 11/12/16 22:00 69 11/12/16 20:55 99 35 11/12/16 20:00 67 11/12/16 20:00 35 11/12/16 20:00 97.6 67 17 104/55 (71) 99 I/O 11/12/16 11/12/16 11/12/16 11/13/16 11/13/16 11/13/16 07:00 15:00 23:00 07:00 15:00 23:00 Intake Total 1178 ml 422 ml 2647 ml 2225 ml 205 ml 992 ml Output Total 1050 ml 1850 ml 1050 ml 2100 ml Balance 128 ml 422 ml 797 ml 1175 ml 205 ml -1108 ml IV Total 518 ml 422 ml 1280 ml 1450 ml 205 ml Tube Feeding 560 ml 767 ml 475 ml 692 ml Other 100 ml 600 ml 300 ml 300 ml Output Urine Total 850 ml 850 ml 750 ml 1100 ml Stool Total 200 ml 1000 ml 300 ml 1000 ml Bladder Scan Volume Amount 585 ml 585 ml Result Diagram: 11/13/16 1025 11/13/16 1025 Objective Remarks GENERAL: SKIN: Warm and dry. HEAD: Atraumatic. Normocephalic. EYES: Pupils equal and round. No scleral icterus. No injection or drainage. ENT: No nasal bleeding or discharge. Mucous membranes pink and moist. NECK: Trachea midline. No JVD. CARDIOVASCULAR: Regular rate and rhythm. RESPIRATORY: No accessory muscle use. Clear to auscultation. Breath sounds equal bilaterally. GASTROINTESTINAL: Abdomen soft, non-tender, nondistended. Hepatic and splenic margins not palpable. MUSCULOSKELETAL: Extremities without clubbing, cyanosis, or edema. No obvious deformities. NEUROLOGICAL: Awake and alert. No obvious cranial nerve deficits. Motor grossly within normal limits. Five out of 5 muscle strength in the arms and legs. Normal speech. PSYCHIATRIC: Appropriate mood and affect; insight and judgment normal. Laboratory Tests Test 11/09/16 03:25 11/09/16 05:32 11/09/16 16:11 11/10/16 05:45 Blood Gas Base Excess -2.1 mmol/L (-2-2) Arterial Blood pH 7.44 (7.380-7.420) Arterial Blood Partial Pressure CO2 32 mmHg (38-42) White Blood Count 24.1 TH/MM3 (4.0-11.0) 19.2 TH/MM3 (4.0-11.0) Red Blood Count 3.69 MIL/MM3 (4.50-5.90) 3.38 MIL/MM3 (4.50-5.90) Hemoglobin 11.0 GM/DL (13.0-17.0) 9.9 GM/DL (13.0-17.0) Hematocrit 33.3 % (39.0-51.0) 30.4 % (39.0-51.0) Neutrophils (%) (Auto) 94.2 % (16.0-70.0) 93.5 % (16.0-70.0) Lymphocytes (%) (Auto) 2.2 % (9.0-44.0) 3.2 % (9.0-44.0) Neutrophils # (Auto) 22.7 TH/MM3 (1.8-7.7) 17.9 TH/MM3 (1.8-7.7) Lymphocytes # (Auto) 0.5 TH/MM3 (1.0-4.8) 0.6 TH/MM3 (1.0-4.8) Neutrophils % (Manual) 89 % (16-70) 87 % (16-70) Neutrophils # (Manual) 24.1 TH/MM3 (1.8-7.7) 18.2 TH/MM3 (1.8-7.7) Metamyelocytes 3 % (0-1) 2 % (0-1) Myelocytes 3 % (0-0) Blood Urea Nitrogen 46 MG/DL (7-18) Random Glucose 184 MG/DL (74-106) Calcium Level 6.9 MG/DL (8.5-10.1) Chloride Level 109 MEQ/L (98-107) Estimat Glomerular Filtration Rate 64 ML/MIN (>89) Protein Corrected Calcium 7.1 MG/DL (8.5-10.1) C-Reactive Protein 3.66 MG/DL (0.00-0.30) Procalcitonin 1.64 ng/mL (0.00-0.50) Lymphocytes % 4 % (9-44) Test 11/10/16 05:48 11/11/16 01:37 11/11/16 03:32 Blood Urea Nitrogen 47 MG/DL (7-18) 49 MG/DL (7-18) Random Glucose 182 MG/DL (74-106) 182 MG/DL (74-106) Calcium Level 7.5 MG/DL (8.5-10.1) 7.2 MG/DL (8.5-10.1) Chloride Level 109 MEQ/L (98-107) 113 MEQ/L (98-107) Estimat Glomerular Filtration Rate 72 ML/MIN (>89) 65 ML/MIN (>89) Phenytoin (Dilantin) Level 5.1 MCG/ML (10.0-20.0) 5.8 MCG/ML (10.0-20.0) Valproic Acid (Depakene) Level 43 MCG/ML (50-100) 31 MCG/ML (50-100) White Blood Count 15.0 TH/MM3 (4.0-11.0) Red Blood Count 2.88 MIL/MM3 (4.50-5.90) Hemoglobin 8.6 GM/DL (13.0-17.0) Hematocrit 26.2 % (39.0-51.0) Platelet Count 147 TH/MM3 (150-450) Total Protein 6.3 GM/DL (6.4-8.2) Sodium Level 147 MEQ/L (136-145) Protein Corrected Calcium 7.6 MG/DL (8.5-10.1) Arterial Blood pH 7.48 (7.380-7.420) Arterial Blood Partial Pressure CO2 32 mmHg (38-42) Blood Gas Hemoglobin 9.4 G/DL (12.0-16.0) Assessment and Plan Assessment and Plan RESPIRATORY FAILURE ENCEPHALOPATHY PLAN VENT SUPPORT PULM. TOILET WEAN OFF VENT TOLERATED Discharge Planning Laboratory Tests Test 11/11/16 01:37 11/11/16 03:32 11/12/16 05:08 11/12/16 05:53 White Blood Count 15.0 TH/MM3 (4.0-11.0) Red Blood Count 2.88 MIL/MM3 (4.50-5.90) Hemoglobin 8.6 GM/DL (13.0-17.0) Hematocrit 26.2 % (39.0-51.0) Platelet Count 147 TH/MM3 (150-450) Blood Urea Nitrogen 49 MG/DL (7-18) 46 MG/DL (7-18) Random Glucose 182 MG/DL (74-106) 187 MG/DL (74-106) Total Protein 6.3 GM/DL (6.4-8.2) 6.0 GM/DL (6.4-8.2) Calcium Level 7.2 MG/DL (8.5-10.1) 7.0 MG/DL (8.5-10.1) Sodium Level 147 MEQ/L (136-145) 146 MEQ/L (136-145) Chloride Level 113 MEQ/L (98-107) 117 MEQ/L (98-107) Estimat Glomerular Filtration Rate 65 ML/MIN (>89) 81 ML/MIN (>89) Protein Corrected Calcium 7.6 MG/DL (8.5-10.1) 7.6 MG/DL (8.5-10.1) Phenytoin (Dilantin) Level 5.8 MCG/ML (10.0-20.0) Valproic Acid (Depakene) Level 31 MCG/ML (50-100) Arterial Blood pH 7.48 (7.380-7.420) 7.47 (7.380-7.420) Arterial Blood Partial Pressure CO2 32 mmHg (38-42) 33 mmHg (38-42) Blood Gas Hemoglobin 9.4 G/DL (12.0-16.0) 8.9 G/DL (12.0-16.0) Test 11/12/16 09:10 11/12/16 14:30 11/13/16 10:25 11/13/16 15:52 Red Blood Count 2.38 MIL/MM3 (4.50-5.90) 3.00 MIL/MM3 (4.50-5.90) Hemoglobin 7.3 GM/DL (13.0-17.0) 9.3 GM/DL (13.0-17.0) Hematocrit 21.7 % (39.0-51.0) 27.7 % (39.0-51.0) Platelet Count 110 TH/MM3 (150-450) 135 TH/MM3 (150-450) Stool C. difficile Toxin (PCR) POSITIVE (NEGATIVE) White Blood Count 12.4 TH/MM3 (4.0-11.0) Neutrophils (%) (Auto) 88.3 % (16.0-70.0) Lymphocytes (%) (Auto) 3.8 % (9.0-44.0) Neutrophils # (Auto) 10.9 TH/MM3 (1.8-7.7) Lymphocytes # (Auto) 0.5 TH/MM3 (1.0-4.8) Blood Urea Nitrogen 38 MG/DL (7-18) Total Protein 6.2 GM/DL (6.4-8.2) Albumin 1.3 GM/DL (3.4-5.0) Calcium Level 7.5 MG/DL (8.5-10.1) Aspartate Amino Transf (AST/SGOT) 68 U/L (15-37) Sodium Level 150 MEQ/L (136-145) Chloride Level 116 MEQ/L (98-107) Ammonia 40 MCMOL/L (11-32) Physician Attestation GENERAL: SKIN: Warm and dry. HEAD: Atraumatic. Normocephalic. EYES: Pupils equal and round. No scleral icterus. No injection or drainage. ENT: No nasal bleeding or discharge. Mucous membranes pink and moist. NECK: Trachea midline. No JVD. CARDIOVASCULAR: Regular rate and rhythm. RESPIRATORY: No accessory muscle use. Clear to auscultation. Breath sounds equal bilaterally. GASTROINTESTINAL: Abdomen soft, non-tender, nondistended. Hepatic and splenic margins not palpable. MUSCULOSKELETAL: Extremities without clubbing, cyanosis, or edema. No obvious deformities. NEUROLOGICAL: Awake and alert. No obvious cranial nerve deficits. Motor grossly within normal limits. Five out of 5 muscle strength in the arms and legs. Normal speech. PSYCHIATRIC: Appropriate mood and affect; insight and judgment normal. Linda Mckeon MD Nov 13, 2016 19:43
[2016-11-13] MEDS: cefTRIAXone INJ 2,000 MG in SODIUM CHLORIDE 0.9% INJ 100 ML IV SCH (23:38)
[2016-11-14] VITALS (16 sets, daily range): BP systolic 92–118; BP diastolic 52–60; PULSE 64–79; RESP 2–18; TEMP 97.1–98.9; O2SAT 96–100
[2016-11-14] MEDS: methylPREDNISolone SOD SUCC 125 MG/2 ML VIAL IV SCH ×4 (00:51→19:33)
[2016-11-14] MEDS: FOSPHENYTOIN SODIUM 100 MG PE/2 ML VIAL IV SCH ×2 (00:51→05:43)
[2016-11-14] MEDS: LACOSAMIDE INJ 100 MG in SODIUM CHLORIDE 0.9% INJ 100 ML IV SCH ×4 (02:27→21:15)
[2016-11-14] MEDS: RESP: ALBUTEROL 2.5 MG/IPRATROPIUM 0.5 MG NEB (SCH) NEB ×4 (02:33→19:38)
[2016-11-14] MEDS: SODIUM CHLORIDE 0.9% IV SCH ×3 (04:15→12:35)
[2016-11-14] MEDS: VALPROATE IV SCH ×3 (04:15→12:35)
[2016-11-14] MEDS: INSULIN NovoLIN REGULAR SUPPLEMENTAL SCALE SQ SCH ×4 (05:00→23:00)
[2016-11-14] MEDS: VANCOMYCIN 500 MG VIAL (FOR ORAL USE ONLY) PO SCH ×3 (05:18→16:54)
[2016-11-14 05:24] LABS: AUTOMATED NEUTROPHIL # 7.8 TH/MM3 (1.8-7.7); BASOPHIL % 0.4 % (0.0-2.0); EOSINOPHIL % 0.1 % (0.0-4.0); HEMATOCRIT 32.2 % (39.0-51.0); LYMPH % 3.5 % (9.0-44.0); LYMPHOCYTE # 0.3 TH/MM3 (1.0-4.8); MEAN CELL VOLUME 94.2 FL (80.0-100.0); MEAN CORPUSCULAR HEMOGLOBIN 31.5 PG (27.0-34.0); MEAN CORPUSCULAR HGB CONC 33.4 % (32.0-36.0); MONO % 4.9 % (0.0-8.0); NEUT % 91.1 % (16.0-70.0); PLATELET COUNT 109 TH/MM3 (150-450); RED BLOOD COUNT 3.42 MIL/MM3 (4.50-5.90); RED CELL DISTRIBUTION WIDTH 13.8 % (11.6-17.2); WHITE BLOOD COUNT 8.6 TH/MM3 (4.0-11.0)
[2016-11-14] MEDS: FREE WATER G-TUBE SCH ×3 (05:27→21:17)
[2016-11-14 05:28] LABS: HEMO FLAGS AUTO DIFF
[2016-11-14 06:00] LABS: BICARBONATE 27.8 MEQ/L (21.0-32.0); CALCIUM-PROTEIN CORRECTED 8.1 MG/DL (8.5-10.1); MAGNESIUM 2.1 MG/DL (1.5-2.5); POTASSIUM 4.1 MEQ/L (3.5-5.1); TOTAL BILIRUBIN ADULT 0.2 MG/DL (0.2-1.0)
[2016-11-14 06:14] LABS: METAMYELOCYTES 1 % (0-1); MYELOCYTES 1 % (0-0); NEUTROPHIL # MANUAL DIFF 8.2 TH/MM3 (1.8-7.7); OVALOCYTES 1+ (NORMAL); PLATELET ESTIMATE SMEAR LOW (NORMAL); PLATELET MORPHOLOGY NORMAL (NORMAL); POLYS (SEG NEUTROPHILS) 93 % (16-70); SCAN/DIFF FINAL DIFF MANUAL; WBC DIFF SAMPLE 100
--- NOTE | 2016-11-14 06:22 | RADRPT ---
EXAM DATE/TIME: 11/14/2016 04:59 [facility] COMPARISON: CHEST SINGLE AP, November 12, 2016, 3:47. INDICATIONS : Short of breath. MEDICAL HISTORY : None. SURGICAL HISTORY : None. ENCOUNTER: Subsequent ACUITY: 1 week PAIN SCORE: 0/10 LOCATION: Bilateral chest FINDINGS: A single view of the chest demonstrates endotracheal tube in good position. NG coiled in stomach. Bas ilar airspace disease present. No significant effusion. No pneumothorax. CONCLUSION: 1. Basilar airspace disease similar to November 12. Endotracheal tube and nasogastric tube in satisf actory position. Kit Cates MD on November 14, 2016 at 6:18 Board Certified Radiologist. This report was verified electronically.
[2016-11-14] MEDS: MIDAZOLAM 100 MG/NS 100 ML DRIP Premix IV PRN ×2 (06:37→18:04)
[2016-11-14] MEDS: ENOXAPARIN SODIUM 40 MG/0.4 ML SYRINGE SQ SCH (08:32)
[2016-11-14] MEDS: SODIUM CHLORIDE 0.9% FLUSH 10 ML FLUSH IV FLUSH SCH ×2 (08:33→21:17)
[2016-11-14] MEDS: DOCUSATE SODIUM 100 MG/10 ML UDC PO SCH ×2 (08:33→21:16)
[2016-11-14] MEDS: SENNOSIDES SYRUP 8.8 MG/5 ML CUP NG SCH ×2 (08:33→21:16)
[2016-11-14] MEDS: LACTULOSE SYRUP 20 GM/30 ML CUP PO SCH ×3 (08:33→16:54)
[2016-11-14] MEDS: INSULIN DETEMIR 100 UNITS/ML VIAL SQ SCH ×2 (08:34→21:00)
[2016-11-14] MEDS: CHLORHEXIDINE 0.12% (ORAL KIT) 15 ML CUP MT SCH ×2 (09:42→19:35)
--- NOTE | 2016-11-14 13:03 | PD.WCN.NOT ---
Wound Consult Description: Received consult for pressure ulcer to sacrum from Doctor Kana Communicated with: JM LORD and Doctor Leslie Smyth Recommendation: Please cleanse sacral area gently with soap, water and soft cloths, pat dry and apply thick layer of calazime barrier cream and leave open to air for now. Will reassess patient next week for further recommendations Additional Information: Patient seen on 5th floor C for evaluation of possible pressure injury to sacrum. Positioned patient to L side with the maximum assistance of JM LORD and verse writer. to reveal sacrococcygeal unstageable pressure injury measuring 6.3cm x 6 cm x eschar. Wound bed presents with ~70% coverage of thin black eschar , ~30 % pink tissue. Periwound presents with non blanchable purple discoloration from 11 to 1 o'clock extending out ~1cm from wound bed. Also noted to periwound and wound margins, skin peeled back from wound bed circumferentially, with surrounding blanchable erythema. Patient has dignishield in place for incontinence management of stools from C-Diff.JM Zelaya states," he had an adhesive foam dressing covering wound that I removed. " Adhesive foam dressing in contraindicated due to the presence of eschar in wound bed. Wound etiology appears to be mixed with moisture, pressure and friction.Cleansed buttock and sacrococcygeal area with soap and water before patting dry. Applied thick layer of Calazime barrier cream and left open to air. Patient was positioned off bottom toward the R side with pillow on Shayla low air loss standard IMC bed.Will leave wound open to air for now and reassess next week for further recommendations Maye Saleh [facility] Nov 14, 2016 13:03
--- NOTE | 2016-11-14 13:33 | HHI.PR ---
Subjective Remarks 66 YOWM with AMS, sz, renal insuff Intubated for airway protection. Noted subclinical sz on stoping Versed Sedated with Versed 10 mg /hr at BS On Fi02 35% C.diff positive, started on Vanco Objective Vital Signs Vital Signs Date Time Temp Pulse Resp B/P (MAP) Pulse Ox O2 Delivery O2 Flow Rate FiO2 11/14/16 12:00 97.6 71 16 99/58 (72) 97 11/14/16 12:00 35 11/14/16 12:00 72 11/14/16 10:00 72 11/14/16 08:11 100 35 11/14/16 08:00 35 11/14/16 08:00 67 11/14/16 08:00 98.0 67 18 95/53 (67) 99 11/14/16 06:00 68 11/14/16 04:00 35 11/14/16 04:00 98.6 70 18 92/52 (65) 96 11/14/16 04:00 70 11/14/16 02:33 99 35 11/14/16 02:00 78 11/14/16 00:00 35 11/14/16 00:00 98.9 79 10 118/60 (79) 99 11/14/16 00:00 79 11/13/16 22:00 75 11/13/16 20:00 98.9 80 18 118/65 (82) 94 11/13/16 20:00 35 11/13/16 20:00 80 11/13/16 19:37 99 35 11/13/16 18:00 79 11/13/16 17:30 79 18 131/69 (89) 97 11/13/16 17:00 77 17 128/70 (89) 96 11/13/16 17:00 77 11/13/16 16:30 78 11/13/16 16:30 78 19 123/66 (85) 97 11/13/16 16:00 75 11/13/16 16:00 35 11/13/16 16:00 75 16 117/67 (84) 97 11/13/16 15:38 97 35 11/13/16 14:30 74 11/13/16 14:00 75 I/O 11/13/16 11/13/16 11/13/16 11/14/16 11/14/1617 07:00 15:00 23:00 07:00 15:00 23:00 Intake Total 2225 ml 205 ml 992 ml 2290 ml 461 ml Output Total 1050 ml 2100 ml 1700 ml Balance 1175 ml 205 ml -1108 ml 590 ml 461 ml IV Total 1450 ml 205 ml 913 ml 461 ml Tube Feeding 475 ml 692 ml 677 ml Other 300 ml 300 ml 700 ml Output Urine Total 750 ml 1100 ml 1300 ml Stool Total 300 ml 1000 ml 400 ml Bladder Scan Volume Amount 585 ml 585 ml 585 ml Result Diagram: 11/14/1640611/14/16406 Objective Remarks GENERAL: WBWN male, unresponsive SKIN: Warm and dry. HEAD: Normocephalic. EYES: No scleral icterus. No injection or drainage. NECK: Supple, trachea midline. No JVD or lymphadenopathy. CARDIOVASCULAR: Regular rate and rhythm without murmurs, gallops, or rubs. RESPIRATORY: Breath sounds equal bilaterally. No accessory muscle use. GASTROINTESTINAL: Abdomen soft, non-tender, nondistended. MUSCULOSKELETAL: No cyanosis, or edema. BACK: Nontender without obvious deformity. No CVA tenderness. A/P Assessment and Plan AMS SZ disorder Renal insuff ? Cerebritis RF, on vent PLAN Vent Support Anti sz meds per Neuro Monitor renal functions Neuro following pt. DW at BS Sedation with versed Stanley Raygoza MD Nov 14, 2016 13:33
[2016-11-14] MEDS: FOSPHENYTOIN INJ 200 MGPE in SODIUM CHLORIDE 0.9% INJ 50 ML IV SCH ×2 (14:23→18:37)
[2016-11-14] MEDS: PANTOPRAZOLE SODIUM 40 MG VIAL IV PUSH SCH (14:42)
--- NOTE | 2016-11-14 15:36 | HHI.PR ---
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 Branham to consider and f/u dilantin/depakote pending Subjective Subjective Comments No acute events reported No clinical sz--on versed. Active Medications Current Medications Medications (Trade) Dose Ordered Sig/Alyssa Route Start Time Stop Time Status Last Admin (NS Flush) 2 ml UNSCH PRN IV FLUSH 10/25/16 00:45 (NS Flush) 2 ml BID IV FLUSH 10/25/16 09:00 11/14/16 08:33 (Zofran Inj) 4 mg Q6H PRN IVP 10/25/16 00:45 (Narcan Inj) 0.4 mg UNSCH PRN IV 10/25/16 00:45 (Ativan Inj) 1 mg Q6H PRN IV 10/26/16 21:30 11/08/16 17:34 (Vasotec Inj) 1.25 mg Q6H PRN IV PUSH 10/26/16 21:30 11/08/16 18:33 (Catapres-Tts 0.1mg Patch.7d) 1 patch Q7D T-DERMAL 10/29/16 16:00 11/12/16 16:43 Miscellaneous Information 1 Q7D T-DERMAL 11/05/16 16:00 11/12/16 16:00 Lacosamide 100 mg/ Sodium Chloride 110 ml @ 110 mls/hr Q6H IV 11/01/16 15:00 11/14/16 14:43 (Peridex 0.12% Liq) 15 ml BID@08,20 MT 11/01/16 20:00 11/14/16 09:42 Midazolam HCl 100 ml @ 2 mls/hr TITRATE PRN IV 11/01/16 12:30 11/14/16 06:37 (Colace Liq) 100 mg Q12HR PO 11/01/16 21:00 11/13/16 20:52 (Protonix Inj) 40 mg Q24H IV PUSH 11/01/16 16:00 11/14/16 14:42 (Lovenox Inj) 40 mg Q24H SQ 11/02/16 09:00 Future hold 11/14/16 08:32 Potassium Chloride 100 ml @ 50 mls/hr Q2H PRN IV 11/01/16 14:00 Potassium Chloride 100 ml @ 50 mls/hr Q2H PRN IV 11/01/16 14:00 (K-Lyte Cl Eff) 50 meq UNSCH PRN PO 11/01/16 14:00 Potassium Chloride 100 ml @ 25 mls/hr UNSCH PRN IV 11/01/16 14:00 Potassium Chloride 100 ml @ 50 mls/hr Q2H PRN IV 11/01/16 14:00 Magnesium Sulfate 4 gm/Sodium Chloride 100 ml @ 50 mls/hr UNSCH PRN IV 11/01/16 14:00 (Mag-Ox) 800 mg UNSCH PRN PO 11/01/16 14:00 Magnesium Sulfate 2 gm/Sodium Chloride 100 ml @ 50 mls/hr UNSCH PRN IV 11/01/16 14:00 (K-Phos) 2,000 mg Q4H PRN PO 11/01/16 14:00 Sodium Phosphate 30 mmol/Sodium Chloride 250 ml @ 42 mls/hr UNSCH PRN IV 11/01/16 14:00 11/08/16 08:48 (K-Phos) 2,000 mg UNSCH PRN PO/TUBE 11/01/16 14:00 Potassium Phosphate 30 mmol/ Sodium Chloride 260 ml @ 42 mls/hr UNSCH PRN IV 11/01/16 14:00 (Tylenol 160 Mg/ 5 ml Liq) 325 mg Q6H PRN NG 11/01/16 14:00 11/11/16 20:35 (Lactulose Liq) 15 ml TID PO 11/05/16 09:00 11/13/16 16:31 Fentanyl Citrate 250 ml @ 5 mls/hr TITRATE PRN IV 11/05/16 22:15 11/07/16 19:41 (Levemir Inj) 14 units Q12HR SQ 11/06/16 09:00 11/14/16 08:34 (D50w (Vial) Inj) 50 ml UNSCH PRN IV 11/07/16 09:30 (Glucagon Inj) 1 mg UNSCH PRN OTHER 11/07/16 09:30 (NovoLIN R SUPPLEMENTAL SCALE) 1 Q6H SQ 11/07/16 11:00 11/14/16 05:00 (SoluMEDROL INJ) 60 mg Q6H IV 11/11/16 02:00 11/14/16 14:42 Propofol 100 ml @ 15.3 mls/hr CONTINUOUS PRN IV 11/11/16 17:15 11/13/16 21:19 (Senna Liq) 8.8 mg BID NG 11/12/16 21:00 11/13/16 20:52 (Free Water) VOLUME: 300 ML Q8HR G-TUBE 11/12/16 22:00 11/14/16 12:35 (Albuterol Neb) 2.5 mg Q2HR NEB PRN NEB 11/12/16 15:15 (Duoneb Neb) 1 ampule Q6HR NEB NEB 11/12/16 16:00 11/14/16 08:11 Ceftriaxone Sodium 2000 mg/ Sodium Chloride 100 ml @ 200 mls/hr Q24H IV 11/12/16 23:00 11/13/16 23:38 (VANCOMYCIN for oral use only) 500 mg Q6H PO 11/13/16 00:00 11/14/16 12:35 Fosphenytoin Sodium 200 mgpe/ Sodium Chloride 54 ml @ 216 mls/hr Q6HR IV 11/14/16 12:00 11/14/16 14:23 Valproate Sodium 750 mg/Sodium Chloride 107.5 ml @ 105 mls/hr Q4HR IV 11/14/16 16:00 UNV Allergies Allergies Coded Allergies penicillin G (Unverified Allergy, Severe, 10/17/16) Review of Systems All other ROS: ROS reviewed as documented in chart Exam I&O / VS 11/14/16 11/14/16 11/15/16 15:00 23:00 07:00 Intake Total 626 ml Balance 626 ml IV Total 626 ml Vital Signs Date Time Temp Pulse Resp B/P (MAP) Pulse Ox O2 Delivery O2 Flow Rate FiO2 11/14/16 12:00 97.6 71 16 99/58 (72) 97 11/14/16 12:00 35 11/14/16 12:00 72 11/14/16 10:00 72 11/14/16 08:11 100 35 11/14/16 08:00 35 11/14/16 08:00 67 11/14/16 08:00 98.0 67 18 95/53 (67) 99 11/14/16 06:00 68 11/14/16 04:00 35 11/14/16 04:00 98.6 70 18 92/52 (65) 96 11/14/16 04:00 70 11/14/16 02:33 99 35 11/14/16 02:00 78 11/14/16 00:00 35 11/14/16 00:00 98.9 79 10 118/60 (79) 99 11/14/16 00:00 79 11/13/16 22:00 75 11/13/16 20:00 98.9 80 18 118/65 (82) 94 11/13/16 20:00 35 11/13/16 20:00 80 11/13/16 19:37 99 35 11/13/16 18:00 79 11/13/16 17:30 79 18 131/69 (89) 97 11/13/16 17:00 77 17 128/70 (89) 96 11/13/16 17:00 77 11/13/16 16:30 78 11/13/16 16:30 78 19 123/66 (85) 97 11/13/16 16:00 75 11/13/16 16:00 35 11/13/16 16:00 75 16 117/67 (84) 97 11/13/16 15:38 97 35 Exam Comments Intubated and on versed. --nonresponsive CN--PERRL, MOTOR--no focal deficit.No clinical sz activity Objective Micro and Labs Laboratory Tests Test 11/13/16 15:52 11/14/16 04:07 Ammonia 40 White Blood Count 8.6 Red Blood Count 3.42 Hemoglobin 10.7 Hematocrit 32.2 Mean Corpuscular Volume 94.2 Mean Corpuscular Hemoglobin 31.5 Mean Corpuscular Hemoglobin Concent 33.4 Red Cell Distribution Width 13.8 Platelet Count 109 Mean Platelet Volume 10.2 Neutrophils (%) (Auto) 91.1 Lymphocytes (%) (Auto) 3.5 Monocytes (%) (Auto) 4.9 Eosinophils (%) (Auto) 0.1 Basophils (%) (Auto) 0.4 Neutrophils # (Auto) 7.8 Lymphocytes # (Auto) 0.3 Monocytes # (Auto) 0.4 Eosinophils # (Auto) 0.0 Basophils # (Auto) 0.0 CBC Comment AUTO DIFF Differential Total Cells Counted 100 Neutrophils % (Manual) 93 Lymphocytes % 2 Monocytes % 3 Neutrophils # (Manual) 8.2 Metamyelocytes 1 Myelocytes 1 Differential Comment FINAL DIFF MANUAL Platelet Estimate LOW Platelet Morphology Comment NORMAL Ovalocytes 1+ Blood Urea Nitrogen 33 Creatinine 0.74 Random Glucose 137 Total Protein 5.9 Albumin 1.2 Calcium Level 7.4 Phosphorus Level 3.0 Magnesium Level 2.1 Alkaline Phosphatase 61 Aspartate Amino Transf (AST/SGOT) 72 Alanine Aminotransferase (ALT/SGPT) 75 Total Bilirubin 0.2 Sodium Level 150 Potassium Level 4.1 Chloride Level 116 Carbon Dioxide Level 27.8 Anion Gap 6 Estimat Glomerular Filtration Rate 105 Protein Corrected Calcium 8.1 Phenytoin (Dilantin) Level 7.8 Valproic Acid (Depakene) Level 41 Date/Time Source Procedure Growth Status 11/11/16 01:37 Blood Peripheral Aerobic Blood Culture - Preliminary NO GROWTH IN 3 DAYS Resulted 11/11/16 01:37 Blood Peripheral Anaerobic Blood Culture - Preliminary NO GROWTH IN 3 DAYS Resulted 10/26/16 13:00 Cerebral Spinal Fluid Lumbar Puncture Fungal Smear - Final NO FUNGAL ELEMENTS SEEN. Resulted 10/26/16 13:00 Cerebral Spinal Fluid Lumbar Puncture Fungal Culture - Preliminary NO GROWTH IN 2 WEEKS Resulted 11/05/16 09:15 Sputum Endotracheal Gram Stain - Final Complete 11/05/16 09:15 Sputum Culture - Final Staphylococcus Aureus Escherichia Coli Enterobacter Aerogenes Complete 11/06/16 03:00 Urine Catheterized Urine Urine Culture - Final NO GROWTH IN 48 HOURS. Complete Miguelito Branham PhD Nov 14, 2016 15:36
[2016-11-14] MEDS: PROPOFOL 1000 MG/100 ML INJ 100 ML IV PRN ×2 (15:59→21:17)
[2016-11-14] MEDS: VALPROATE INJ 750 MG in SODIUM CHLORIDE 0.9% INJ 100 ML IV SCH ×2 (16:54→19:33)
--- NOTE | 2016-11-14 18:03 | HHI.CCPN ---
Subjective Remarks/Hospital Course This is a 66-year-old man with history of diabetes, hypertension, dyslipidemia who about a month ago started having difficulty with balance with shuffling type of gait and resting tremor along with recent cognitive decline as well. His initial admission was on 10/06/16, as initial workup was negative patient was admitted to psych unit on 10/06/16 for suicidal ideations and altered mental status. He was evaluated by neurology Dr Branham, possibility of Parkinsonian symptoms and vitamin B 12 deficiency was entertained, but there was no improvement with treatment. He was re admitted to hospitalist service with worsening mental status on 10/25/16. Per Dr. Branham, MRI showed possible cerebritis. Differential included Creutzfeldt-Ministerio. But 14-3-3 protein for Creutzfeldt-Ministerio was negative. Currently on acyclovir for possibility of viral cerebritis. EEG done 10/24/16 showed generalized epileptiform activity. Patient was placed on Cerebyx, Keppra. Keppra was DCd due to rash and currently patient is on Cerebyx and Vimpat. Repeat EEGs from 10/31/16 and today shows continued seizure activity/subclinical seizures. Patient continues to be encephalopathic not responding. EEG today shows continued seizure activity indicating status epilepticus. Critical-care medicine was consulted by Dr. Branham today for continuous Versed infusion after intubation I evaluated the patient in ICU. He barely opens his eyes to painful stimuli localizes with right upper extremity withdrawal of any other extremities. Discussed with Dr. Branham multiple times. In his opinion, this appears to be a autoimmune encephalitis less likely to be infectious. Anti-NMDA receptor antibody ordered. Per Dr. Branham D/D possibly paraneoplastic, vasculitic or NMDA- receptor encephalitis. Currently patient is on IV Solu-Medrol and IVIG had been ordered by Dr. Branham. Initiate continuous EEG monitoring. TTP/HUS unlikely, but patient has E Coli UTI, I have asked for peripheral smear review by pathologist 11/02: remains encephalopathic, but also very deeply sedated on versed drip. continuous EEG with intermittent sharp spikes that correspond with rhythmic neck movement. neurology adding additional anti-epileptics. peripheral smear without Schistocytes. currently receiving IVIG for possible au immune encephalopathy. 11/03 Patient remains sedated and intubated. Afebrile. 11/04 Patient remains intubated and sedated with Versed 10mg/hr. Tmax 100.6 11/05 No events overnight. On Versed drip for sedation, no seizures overnight. Patient is on continuous EEG monitoring. T: 101.0 last night. 11/06 Patient is sedated with Versed and Fentanyl. No seizures overnight. Afebrile. 11/07 Patient remains sedated and intubated. Afebrile. No recurrent seizures overnight. 11/08 TMax 99.6. The patient was noted to be on sedation vacation, EEG was being performed patient was noted to have subclinical seizures persistent. The patient was immediately bolused with 5 mg IV.Versed infusion continued at 8 mg/ h noted cessation of subclinical seizures and the patient continues to be monitored via EEG. Noted phenytoin and valproic acid levels were noted subtherapeutic today. 11/09 TMax 100.7. No further sedation holiday per Neurology due to ongoing subclinical seizure activity.the patient continues on AED's. AED levels pending in am.The patient remained on continuous EEG monitoring throughout the night with cessation of subclinical seizure activity. 11/10: No acute events overnight. EEG performed today. Propofol infusion added to medication regimen.\ 11/12: Maximum 101.9. Currently afebrile. Tolerating tube feeding. Positive BM. Subjective 11/13: Moved from room 526 to room 500 due to leaking window. Early afebrile. Diagnosed with C. difficile EPID O27 negative. Started on oral vancomycin per infectious disease. Otherwise no changes overnight. 11/14: The patient continues on deep sedation secondary to subclinical seizure activity, per Dr. Branham recommendation. Continues on Versed 10 mg, propofol 25 mcgs. Discussed extensively possibility of tracheostomy with today. Further discussion planned tomorrow, after results from EEG and repeat MRI are obtained, to assess for continued subclinical seizure activity. Objective Vital Signs Date Time Temp Pulse Resp B/P (MAP) Pulse Ox O2 Delivery O2 Flow Rate FiO2 11/14/16 17:35 100 35 11/14/16 12:00 97.6 71 16 99/58 (72) Intake and Output 11/14/16 11/14/16 11/15/16 08:00 16:00 00:00 Intake Total 2290 ml 746 ml Output Total 1700 ml Balance 590 ml 746 ml Result Diagram: 11/14/1640611/14/16406 Imaging Last Impressions Chest X-Ray 11/14/16 0600 Signed Impressions: Service Date/Time: Monday, November 14, 2016 04:59 - CONCLUSION: 1. Basilar airspace disease similar to November 12. Endotracheal tube and nasogastric tube in satisfactory position. Kit Cates MD Brain MRI 11/07/16 0000 Signed Impressions: Service Date/Time: Monday, November 07, 2016 11:17 - CONCLUSION: 1. Continued subtle signal abnormality involving the pinto-white junction in the right occipital and right parietal regions. There has been no significant change when compared to the prior exam. Kranthi Lloyd MD Upper Extremity Ultrasound 11/04/16 Signed Impressions: Service Date/Time: Friday, November 04, 2016 18:24 - CONCLUSION: Occlusion of the cephalic vein. The other veins are patent. Everett Block MD Lower Extremity Ultrasound 11/03/16 0000 Signed Impressions: Service Date/Time: Thursday, November 03, 2016 15:19 - CONCLUSION: Negative for deep venous thrombosis. Rahat Frey MD FACR Chest CT 11/01/16 0000 Signed Impressions: Service Date/Time: Tuesday, November 01, 2016 15:59 - CONCLUSION: Minimal nonspecific adenopathy the bibasilar parenchymal changes worse on the left. Rahat Frey MD FACR Abdomen/Pelvis CT 11/01/16 0000 Signed Impressions: Service Date/Time: Tuesday, November 01, 2016 16:04 - CONCLUSION: Nonspecific minimal bowel wall thickening transverse colon. There are no ancillary signs of malignancy. Rahat Frey MD FACR Lumbar Puncture Fluoroscopy 10/26/16 0000 Signed Impressions: Service Date/Time: October 12:24 - CONCLUSION: Uncomplicated fluoroscopically guided cervical puncture. Kranthi Lloyd MD Last Impressions Chest X-Ray 11/12/16 0600 Signed Impressions: Service Date/Time: Saturday, November 12, 2016 03:47 - CONCLUSION: Bilateral perihilar infiltrates and right small to moderate pleural effusion, all slightly worse in the interim. Madhav Oneil MD Brain MRI 11/07/16 0000 Signed Impressions: Service Date/Time: Monday, November 07, 2016 11:17 - CONCLUSION: 1. Continued subtle signal abnormality involving the pinto-white junction in the right occipital and right parietal regions. There has been no significant change when compared to the prior exam. Kranthi Lloyd MD Upper Extremity Ultrasound 11/04/16 0000 Signed Impressions: Service Date/Time: Friday, November 04, 2016 18:24 - CONCLUSION: Occlusion of the cephalic vein. The other veins are patent. Everett Block MD Lower Extremity Ultrasound 11/03/16 0000 Signed Impressions: Service Date/Time: Thursday, November 03, 2016 15:19 - CONCLUSION: Negative for deep venous thrombosis. Rahat Frey MD FACR Chest CT 11/01/16 0000 Signed Impressions: Service Date/Time: Tuesday, November 01, 2016 15:59 - CONCLUSION: Minimal nonspecific adenopathy the bibasilar parenchymal changes worse on the left. Rahat Frey MD FACR Abdomen/Pelvis CT 11/01/16 0000 Signed Impressions: Service Date/Time: Tuesday, November 01, 2016 16:04 - CONCLUSION: Nonspecific minimal bowel wall thickening transverse colon. There are no ancillary signs of malignancy. Rahat Frey MD FACR Lumbar Puncture Fluoroscopy 10/26/16 0000 Signed Impressions: Service Date/Time: October 12:24 - CONCLUSION: Uncomplicated fluoroscopically guided cervical puncture. Kranthi Lloyd MD Objective Remarks GENERAL: 66-year-old male, lying in bed, intubated, and sedated. SKIN: Warm and dry. No lesions noted. HEENT: Normocephalic. Pupils equal 2 mm reactive. orotracheally intubated CARDIOVASCULAR: RRR. S1, S2 no S4. No murmur appreciated. Telemetry sinus rhythm RESPIRATORY:.Few coarse crackles appreciated anteriorly. Symmetrical excursion. GASTROINTESTINAL: Abdomen soft, non-tender, nondistended. Bowel sounds are active MUSCULOSKELETAL: No obvious deformities. No significant peripheral edema. NEUROLOGICAL: GCS 3T.Deeply sedated on multiple sedatives. Pupils 5 mm bilaterally and reactive. A/P Assessment and Plan NEURO/Psych: Status epilepticus Acute encephalopathy Probable autoimmune encephalitis Currently on propofol at 25 micrograms per kilogram an hour/midazolam drip at 10 mg an hour for sedation while intubated Goal of RASS -4 while actively seizing -10/31 MRI brain: Subtle signal abdomen only at the pinto-white junction in the right hemisphere as above. The findings may reflect encephalitis or cerebritis -11/07 repeat MRI brain continued subtle signal abnormality involving pinto/white matter junction in right occiput total and right parietal regions. No change from previous MRI -11/10 Continuous EEG, noted subclinical appears worse than 11/08 EEG - Continue IV fosphenytoin 200mg Q6, lacosamide 100 mg every 6 hours valproic acid 600 mill grams IV every 4 hours Recheck levels 11/14 - Workup negative for infectious encephalitis - Ongoing workup for autoimmune encephalitis, anti-NMDA receptor antibody pending - follow up paraneoplastic antibodies and anti nmda antibody - neurology call lab 11/12/not back yet - Neurology recommends repeat MRI and EEG scheduled for 11/15 and consider brain bx if the labs for paraneoplastic and NMDA come back negative to further assess for Creutzfeldt Juanjo - Continue IV Solu-Medrol 60 mg IV Q6 per Dr. Branham/neurology - TTP/HUS unlikely given lack of schistocytes on peripheral smear 11/01 -Hold all sedation vacations per Dr. Branham, due to active seizure activity RESP: Acute hypoxic and hypercarbic respiratory failure [facility] 16//03/09/34 Albuterol/ipratropium every 6 hours and when necessary - HOLD SBT / CPAP trials at this time, maintain sedation secondary to active seizure activity -CXR 11/12: Moderate right pleural effusion, atelectasis. CV: -Monitor HR and BP keep MAP>65mmHg Not requiring any interventions and/or vasopressors at the present time Continue clonidine patch 0.1 mg every week. GI: Hypoalbuminemia -Continue tube feeds- Glucerna 1.5 @ 50ml/hr @ goal Pantoprazole 40 mg IV daily for GI prophylaxis - Bowel Regimen with docusate sodium/senna twice a day on hold C. difficile positive-by mouth vancomycin lactulose 15 cc every 8 hours Renal/: Acute kidney injury Hypocalcemia - Monitor renal function, - electrolytes replacement as needed per ICU electrolyte protocol Currently stable ID: Encephalitis is probably noninfectious E Coli UTI E. Aerogenes Escherichia coli/staph aureus bacteremia Pneumonia C. difficile Continue with abx (Cefepime, levofloxacin) ID is following monitor for isgns of infections ( Fever, WBC) - Blood cultures 11/11 - no growth - Blood,sputum from 11/05: Escherichia coli, sputum cx 11/05: Escherichia coli, Staph Aureus, Enterobacter Aerogenes -Urine cx 10/30: Escherichia coli - TTP/HUS unlikely given negative peripheral smear for schistocytes -ID following-Dr. Mackay. Discontined cefepime 11/12. Restarted instead on ceftriaxone 11/12. Currently on levofloxacin 500 mg daily and until 11/18 Start oral vancomycin 500 every 6 hours for C. difficile +11/12 HEME: Thrombocytopenia Normocytic anemia Superficial thrombus cephalic vein/right - Monitor CBC, CMP, coags, Fibrinogen level 365 11/05, Heme was called and currently signed off -HIT panel is negative No indications for transfusion of blood product at this time ENDO: Type 2 diabetes Hyperglycemia secondary steroids Holding metformin 500 mg twice a day/home medication - Electrolyte replacement per protocol - SSI (High scale Novulin R) Levemir 14 units BID MSK: Wound care consult for eschar noted sacral [id number] recommendations PROPH: - Bilateral lower extremity SCDs. Anoxic. SQ -US RUE: Occlusion of the cephalic vein. -US LE b/L: No DVT - IV pantoprazole LINES: - Utilize peripheral IVs Level 3 Dispo: Discussed with Mrs. Luong regarding tracheostomy plan for the very near future, she would like to wait until results from repeat MRI and EEG tomorrow for decision whether to continue CPAP trials of sedation vacations are reinitiated, and discussed with FIRE POT OPERATOR at bedside. Physician Level 3 Leslie Smyth MD Nov 14, 2016 18:03
[2016-11-15] VITALS (20 sets, daily range): BP systolic 91–134; BP diastolic 53–66; PULSE 58–67; RESP 16–18; TEMP 97.4–98; O2SAT 94–100
[2016-11-15] MEDS: cefTRIAXone INJ 2,000 MG in SODIUM CHLORIDE 0.9% INJ 100 ML IV SCH (00:10)
[2016-11-15] MEDS: FOSPHENYTOIN INJ 200 MGPE in SODIUM CHLORIDE 0.9% INJ 50 ML IV SCH ×4 (00:38→18:52)
[2016-11-15] MEDS: VANCOMYCIN 500 MG VIAL (FOR ORAL USE ONLY) PO SCH ×5 (00:38→23:58)
[2016-11-15] MEDS: VALPROATE INJ 750 MG in SODIUM CHLORIDE 0.9% INJ 100 ML IV SCH ×7 (01:24→23:56)
[2016-11-15] MEDS: LACOSAMIDE INJ 100 MG in SODIUM CHLORIDE 0.9% INJ 100 ML IV SCH ×4 (02:41→21:14)
[2016-11-15] MEDS: methylPREDNISolone SOD SUCC 125 MG/2 ML VIAL IV SCH ×4 (02:41→19:54)
[2016-11-15] MEDS: PROPOFOL 1000 MG/100 ML INJ 100 ML IV PRN ×3 (02:41→15:02)
[2016-11-15] MEDS: RESP: ALBUTEROL 2.5 MG/IPRATROPIUM 0.5 MG NEB (SCH) NEB ×4 (03:09→19:19)
[2016-11-15] MEDS: MIDAZOLAM 100 MG/NS 100 ML DRIP Premix IV PRN ×3 (03:10→19:54)
[2016-11-15 04:03] LABS: BLOOD GAS BASE EXCESS 2.6 mmol/L (-2-2); BLOOD GAS CARBOXYHEMOGLOBIN 1.9 % (0-4); BLOOD GAS HCO3 26 mmol/L (22-26); BLOOD GAS O2 HGB SATURATION 94 % (90-100); BLOOD GAS OXYGEN CONTENT 11.2 Vol % (12.0-20.0); BLOOD GAS PCO2 39 mmHg (38-42); BLOOD GAS PO2 82 mmHg (61-120); BLOOD GAS TOTAL HGB 8.4 G/DL (12.0-16.0); TEMP CORR TO 98.6
[2016-11-15 04:04] LABS: CRITICAL VALUE NO; OXYGEN DEVICE VENTILATOR
[2016-11-15 04:05] LABS: DRAW SITE LT BRACHIAL; FIO2 35 %; NUMBER OF ARTERIAL PUNCTURES 1; STAT NO; ULNAR PULSE PRESENT
[2016-11-15] MEDS: INSULIN NovoLIN REGULAR SUPPLEMENTAL SCALE SQ SCH ×4 (05:00→23:00)
[2016-11-15] MEDS: FREE WATER G-TUBE SCH ×5 (05:54→23:58)
--- NOTE | 2016-11-15 06:05 | RADRPT ---
EXAM DATE/TIME: 11/15/2016 04:21 [facility] COMPARISON: CHEST SINGLE AP, November 14, 2016, 4:59. INDICATIONS : Shortness of breath. MEDICAL HISTORY : None. SURGICAL HISTORY : None. ENCOUNTER: Subsequent ACUITY: 1 week PAIN SCORE: Non-responsive. LOCATION: Bilateral chest FINDINGS: The endotracheal tube is in good position. Nasogastric tube coiled in stomach. Basilar airspace disea se and bilateral effusions. No pneumothorax. CONCLUSION: 1. Stable basilar airspace disease and probable small effusions. Support apparatus unchanged. Kit Cates MD on November 15, 2016 at 6:03 Board Certified Radiologist. This report was verified electronically.
[2016-11-15 07:29] LABS: MEAN CELL VOLUME 94.6 FL (80.0-100.0); MEAN CORPUSCULAR HGB CONC 32.8 % (32.0-36.0); PLATELET COUNT 135 TH/MM3 (150-450); RED BLOOD COUNT 2.85 MIL/MM3 (4.50-5.90); RED CELL DISTRIBUTION WIDTH 14.3 % (11.6-17.2); REVIEW FLAG FINAL; WHITE BLOOD COUNT 10.4 TH/MM3 (4.0-11.0)
[2016-11-15 07:54] LABS: BICARBONATE 28.8 MEQ/L (21.0-32.0); MAGNESIUM 2.3 MG/DL (1.5-2.5); POTASSIUM 4.3 MEQ/L (3.5-5.1)
[2016-11-15] MEDS: LACTULOSE SYRUP 20 GM/30 ML CUP PO SCH ×3 (08:16→17:38)
[2016-11-15] MEDS: INSULIN DETEMIR 100 UNITS/ML VIAL SQ SCH ×2 (08:16→21:00)
[2016-11-15] MEDS: ENOXAPARIN SODIUM 40 MG/0.4 ML SYRINGE SQ SCH (08:16)
[2016-11-15] MEDS: SODIUM CHLORIDE 0.9% FLUSH 10 ML FLUSH IV FLUSH SCH ×2 (08:20→21:14)
[2016-11-15] MEDS: SENNOSIDES SYRUP 8.8 MG/5 ML CUP NG SCH (08:20)
[2016-11-15] MEDS: DOCUSATE SODIUM 100 MG/10 ML UDC PO SCH (08:20)
[2016-11-15] MEDS: CHLORHEXIDINE 0.12% (ORAL KIT) 15 ML CUP MT SCH ×2 (08:22→19:55)
--- NOTE | 2016-11-15 14:37 | HHI.CCPN ---
Subjective Remarks/Hospital Course This is a 66-year-old man with history of diabetes, hypertension, dyslipidemia who about a month ago started having difficulty with balance with shuffling type of gait and resting tremor along with recent cognitive decline as well. His initial admission was on 10/06/16, as initial workup was negative patient was admitted to psych unit on 10/06/16 for suicidal ideations and altered mental status. He was evaluated by neurology Dr Branham, possibility of Parkinsonian symptoms and vitamin B 12 deficiency was entertained, but there was no improvement with treatment. He was re admitted to hospitalist service with worsening mental status on 10/25/16. Per Dr. Branham, MRI showed possible cerebritis. Differential included Creutzfeldt-Ministerio. But 14-3-3 protein for Creutzfeldt-Ministerio was negative. Currently on acyclovir for possibility of viral cerebritis. EEG done 10/24/16 showed generalized epileptiform activity. Patient was placed on Cerebyx, Keppra. Keppra was DCd due to rash and currently patient is on Cerebyx and Vimpat. Repeat EEGs from 10/31/16 and today shows continued seizure activity/subclinical seizures. Patient continues to be encephalopathic not responding. EEG today shows continued seizure activity indicating status epilepticus. Critical-care medicine was consulted by Dr. Branham today for continuous Versed infusion after intubation I evaluated the patient in ICU. He barely opens his eyes to painful stimuli localizes with right upper extremity withdrawal of any other extremities. Discussed with Dr. Branham multiple times. In his opinion, this appears to be a autoimmune encephalitis less likely to be infectious. Anti-NMDA receptor antibody ordered. Per Dr. Branham D/D possibly paraneoplastic, vasculitic or NMDA- receptor encephalitis. Currently patient is on IV Solu-Medrol and IVIG had been ordered by Dr. Branham. Initiate continuous EEG monitoring. TTP/HUS unlikely, but patient has E Coli UTI, I have asked for peripheral smear review by pathologist 11/02: remains encephalopathic, but also very deeply sedated on versed drip. continuous EEG with intermittent sharp spikes that correspond with rhythmic neck movement. neurology adding additional anti-epileptics. peripheral smear without Schistocytes. currently receiving IVIG for possible au immune encephalopathy. 11/03 Patient remains sedated and intubated. Afebrile. 11/04 Patient remains intubated and sedated with Versed 10mg/hr. Tmax 100.6 11/05 No events overnight. On Versed drip for sedation, no seizures overnight. Patient is on continuous EEG monitoring. T: 101.0 last night. 11/06 Patient is sedated with Versed and Fentanyl. No seizures overnight. Afebrile. 11/07 Patient remains sedated and intubated. Afebrile. No recurrent seizures overnight. 11/08 TMax 99.6. The patient was noted to be on sedation vacation, EEG was being performed patient was noted to have subclinical seizures persistent. The patient was immediately bolused with 5 mg IV.Versed infusion continued at 8 mg/ h noted cessation of subclinical seizures and the patient continues to be monitored via EEG. Noted phenytoin and valproic acid levels were noted subtherapeutic today. 11/09 TMax 100.7. No further sedation holiday per Neurology due to ongoing subclinical seizure activity.the patient continues on AED's. AED levels pending in am.The patient remained on continuous EEG monitoring throughout the night with cessation of subclinical seizure activity. 11/10: No acute events overnight. EEG performed today. Propofol infusion added to medication regimen.\ 11/12: Maximum 101.9. Currently afebrile. Tolerating tube feeding. Positive BM. 11/13: Moved from room 526 to room 500 due to leaking window. Early afebrile. Diagnosed with C. difficile EPID O27 negative. Started on oral vancomycin per infectious disease. Otherwise no changes overnight. 11/14: The patient continues on deep sedation secondary to subclinical seizure activity, per Dr. Branham recommendation. Continues on Versed 10 mg, propofol 25 mcgs. Discussed extensively possibility of tracheostomy with today. Further discussion planned tomorrow, after results from EEG and repeat MRI are obtained, to assess for continued subclinical seizure activity. Subjective 11/15: no improvements in mental status. will get palliative involved. poor prognosis. still seizes with any lightening of deep sedation. Objective Vital Signs Date Time Temp Pulse Resp B/P (MAP) Pulse Ox O2 Delivery O2 Flow Rate FiO2 11/15/16 12:54 99 35 11/15/16 10:00 62 11/15/16 08:00 97.8 18 94/56 (69) Intake and Output 11/15/16 11/15/16 11/16/16 08:00 16:00 00:00 Intake Total 1902.0 ml 793 ml Output Total 1300 ml Balance 602.0 ml 793 ml Result Diagram: 11/15/16 0515 11/15/16 0515 Other Results Laboratory Tests Test 11/15/16 03:43 Blood Gas Puncture Site LT BRACHIAL Blood Gas Patient Temperature 98.6 Blood Gas HCO3 26 mmol/L (22-26) Blood Gas Base Excess 2.6 mmol/L (-2-2) Blood Gas Oxygen Saturation 94 % (90-100) Arterial Blood pH 7.45 (7.380-7.420) Arterial Blood Partial Pressure CO2 39 mmHg (38-42) Arterial Blood Partial Pressure O2 82 mmHg (61-120) Arterial Blood Oxygen Content 11.2 Vol % (12.0-20.0) Arterial Blood Carboxyhemoglobin 1.9 % (0-4) Arterial Blood Methemoglobin 1.0 % (0-2) Blood Gas Hemoglobin 8.4 G/DL (12.0-16.0) Oxygen Delivery Device VENTILATOR Blood Gas Ventilator Setting COMMENT Blood Gas Inspired Oxygen 35 % Imaging Last Impressions Chest X-Ray 11/14/16 0600 Signed Impressions: Service Date/Time: Monday, November 14, 2016 04:59 - CONCLUSION: 1. Basilar airspace disease similar to November 12. Endotracheal tube and nasogastric tube in satisfactory position. Kit aCtes MD Brain MRI 11/07/16 0000 Signed Impressions: Service Date/Time: Monday, November 07, 2016 11:17 - CONCLUSION: 1. Continued subtle signal abnormality involving the pinto-white junction in the right occipital and right parietal regions. There has been no significant change when compared to the prior exam. Kranthi Lloyd MD Upper Extremity Ultrasound 11/04/16 0000 Signed Impressions: Service Date/Time: Friday, November 04, 2016 18:24 - CONCLUSION: Occlusion of the cephalic vein. The other veins are patent. Everett Block MD Lower Extremity Ultrasound 11/03/16 0000 Signed Impressions: Service Date/Time: Thursday, November 03, 2016 15:19 - CONCLUSION: Negative for deep venous thrombosis. Rahat Frey MD FACR Chest CT 11/01/16 0000 Signed Impressions: Service Date/Time: Tuesday, November 01, 2016 15:59 - CONCLUSION: Minimal nonspecific adenopathy the bibasilar parenchymal changes worse on the left. Rahat Frey MD FACR Abdomen/Pelvis CT 11/01/16 0000 Signed Impressions: Service Date/Time: Tuesday, November 01, 2016 16:04 - CONCLUSION: Nonspecific minimal bowel wall thickening transverse colon. There are no ancillary signs of malignancy. Rahat Frey MD FACR Lumbar Puncture Fluoroscopy 10/26/16 0000 Signed Impressions: Service Date/Time: October 12:24 - CONCLUSION: Uncomplicated fluoroscopically guided cervical puncture. Kranthi Lloyd MD Last Impressions Chest X-Ray 11/12/16 0600 Signed Impressions: Service Date/Time: Saturday, November 12, 2016 03:47 - CONCLUSION: Bilateral perihilar infiltrates and right small to moderate pleural effusion, all slightly worse in the interim. Madhav Oneil MD Brain MRI 11/07/16 0000 Signed Impressions: Service Date/Time: Monday, November 07, 2016 11:17 - CONCLUSION: 1. Continued subtle signal abnormality involving the pinto-white junction in the right occipital and right parietal regions. There has been no significant change when compared to the prior exam. Kranthi Lloyd MD Upper Extremity Ultrasound 11/04/16 0000 Signed Impressions: Service Date/Time: Friday, November 04, 2016 18:24 - CONCLUSION: Occlusion of the cephalic vein. The other veins are patent. Everett Block MD Lower Extremity Ultrasound 11/03/16 0000 Signed Impressions: Service Date/Time: Thursday, November 03, 2016 15:19 - CONCLUSION: Negative for deep venous thrombosis. Rahat Frey MD FACR Chest CT 11/01/16 0000 Signed Impressions: Service Date/Time: Tuesday, November 01, 2016 15:59 - CONCLUSION: Minimal nonspecific adenopathy the bibasilar parenchymal changes worse on the left. Rahat Frey MD FACR Abdomen/Pelvis CT 11/01/16 0000 Signed Impressions: Service Date/Time: Tuesday, November 01, 2016 16:04 - CONCLUSION: Nonspecific minimal bowel wall thickening transverse colon. There are no ancillary signs of malignancy. Rahat Frey MD FACR Lumbar Puncture Fluoroscopy 10/26/16 0000 Signed Impressions: Service Date/Time: Thursday, October 26, 2016 12:24 - CONCLUSION: Uncomplicated fluoroscopically guided cervical puncture. Kranthi Lloyd MD Objective Remarks GENERAL: 66-year-old male, lying in bed, intubated, and sedated. SKIN: Warm and dry. No lesions noted. HEENT: Normocephalic. Pupils equal 2 mm reactive. orotracheally intubated CARDIOVASCULAR: RRR. Telemetry sinus rhythm RESPIRATORY:. Symmetrical excursion. intubated. GASTROINTESTINAL: Abdomen soft, non-tender, nondistended MUSCULOSKELETAL: No obvious deformities. No significant peripheral edema. NEUROLOGICAL: GCS 3T.Deeply sedated on multiple sedatives. Pupils 5 mm bilaterally and reactive. A/P Assessment and Plan Assessment: 66yM with acute encephalopathy of unknown etiology. All tests negative at this point. Prognosis would be poor. will consult palliative care. If goals of care remain aggressive, then we need to pursue trach and peg. will discuss with neurology possibility of brain biopsy. remains critically ill and off pathway. NEURO/Psych: Status epilepticus Acute encephalopathy Probable autoimmune encephalitis Currently on propofol at 25 micrograms per kilogram an hour/midazolam drip at 10 mg an hour for sedation while intubated Goal of RASS -4 while actively seizing -10/31 MRI brain: Subtle signal abdomen only at the pinto-white junction in the right hemisphere as above. The findings may reflect encephalitis or cerebritis -11/07 repeat MRI brain continued subtle signal abnormality involving pinto/white matter junction in right occiput total and right parietal regions. No change from previous MRI -11/10 Continuous EEG, noted subclinical appears worse than 11/08 EEG - Continue IV fosphenytoin 200mg Q6, lacosamide 100 mg every 6 hours valproic acid 600 mill grams IV every 4 hours Recheck levels 11/14 - Workup negative for infectious encephalitis - Ongoing workup for autoimmune encephalitis, anti-NMDA receptor antibody negative. - all paraneoplastic antibodies and anti nmda antibody negative. - Neurology recommends repeat MRI and EEG scheduled for today and consider brain bx to further assess for Creutzfeldt Juanjo - Continue IV Solu-Medrol 60 mg IV Q6 per Dr. Branham/neurology - TTP/HUS unlikely given lack of schistocytes on peripheral smear 11/01 -Hold all sedation vacations per Dr. Branham, due to active seizure activity RESP: Acute hypoxic and hypercarbic respiratory failure PRVC 16//1/5/35 Albuterol/ipratropium every 6 hours and when necessary - HOLD SBT / CPAP trials at this time, maintain sedation secondary to active seizure activity -CXR 11/12: Moderate right pleural effusion, atelectasis. CV: -Monitor HR and BP keep MAP>65mmHg Not requiring any interventions and/or vasopressors at the present time Continue clonidine patch 0.1 mg every week. GI: Hypoalbuminemia -Continue tube feeds- Glucerna 1.5 @ 50ml/hr @ goal Pantoprazole 40 mg IV daily for GI prophylaxis - Bowel Regimen with docusate sodium/senna twice a day on hold C. difficile positive-by mouth vancomycin lactulose 15 cc every 8 hours Renal/: Acute kidney injury Hypocalcemia - Monitor renal function, - electrolytes replacement as needed per ICU electrolyte protocol Currently stable ID: Encephalitis is probably noninfectious E Coli UTI E. Aerogenes Escherichia coli/staph aureus bacteremia Pneumonia C. difficile Continue with abx (Cefepime, levofloxacin) ID is following monitor for isgns of infections ( Fever, WBC) - Blood cultures 11/11 - no growth - Blood,sputum from 11/05: Escherichia coli, sputum cx 11/05: Escherichia coli, Staph Aureus, Enterobacter Aerogenes -Urine cx 10/30: Escherichia coli - TTP/HUS unlikely given negative peripheral smear for schistocytes -ID following-Dr. Mackay. Discontined cefepime 11/12. Restarted instead on ceftriaxone 11/12. Currently on levofloxacin 500 mg daily and until 11/18 Oral vancomycin 500 every 6 hours for C. difficile +11/12 HEME: Thrombocytopenia Normocytic anemia Superficial thrombus cephalic vein/right - Monitor CBC, CMP, coags, Fibrinogen level 365 11/05, Heme was called and currently signed off -HIT panel is negative No indications for transfusion of blood product at this time ENDO: Type 2 diabetes Hyperglycemia secondary steroids Holding metformin 500 mg twice a day/home medication - Electrolyte replacement per protocol - SSI (High scale Novulin R) Levemir 14 units BID MSK: Wound care consult for eschar noted sacral [id number] recommendations PROPH: - Bilateral lower extremity SCDs. Anoxic. SQ -US RUE: Occlusion of the cephalic vein. -US LE b/L: No DVT - IV pantoprazole LINES: - Utilize peripheral IVs Dispo: Discussed with Mrs. Luong regarding tracheostomy plan for the very near future, she would like to wait until results from repeat MRI and EEG tomorrow for decision whether to continue CPAP trials of sedation vacations are reinitiated, and discussed with [employer] at bedside. Luis Fernando Sadler MD Nov 15, 2016 14:36
[2016-11-15] MEDS: PANTOPRAZOLE SODIUM 40 MG VIAL IV PUSH SCH (15:02)
[2016-11-15] MEDS: FUROSEMIDE 40 MG/4 ML VIAL IV PUSH SCH ×2 (15:04→17:39)
--- NOTE | 2016-11-15 16:36 | RADRPT ---
EXAM DATE/TIME: 11/15/2016 15:53 [facility] COMPARISON: MRI BRAIN W & W/O CONTRAST, November 07, 2016, 11:17. INDICATIONS : Encephalitis. CONTRAST: 20 cc Omniscan (gadodiamide) IV MEDICAL HISTORY : None. SURGICAL HISTORY : Umbilical hernia repair. ENCOUNTER: Subsequent ACUITY: 2 months PAIN SCORE: 0/10 LOCATION: head. TECHNIQUE: Multiplanar, multisequence MRI of the brain was performed both prior to and following the administrat ion of paramagnetic contrast. FINDINGS: Again seen are the subtle changes pinto-white matter. There is no parietal hemorrhage, extra-axial fl uid or mass effect. Ventricle size is appropriate. Posterior fossa is unremarkable. There is no abnormal contrast enhancement Minimal sinus disease is evident CONCLUSION: Stable MRI of the brain with subtle increased signal pinto-white matter junction right parietal and oc cipital regions. Rahat Frey MD FACR on November 15, 2016 at 16:31 Board Certified Radiologist. This report was verified electronically.
--- NOTE | 2016-11-15 17:08 | PD.CONS ---
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 functional/cognitive status? . Code Status: Full Code Plan == Code Status -- FULL CODE == Decision making: The patient is incapacitated to make his own health care decisions. At this point it appears unlikely that he will regain capacity to do so. There is no written designation of health care surrogate. The patient' s spouse, therefore, serves as proxy health care decision-maker. == Goals of medical treatment: The patient's is still under the impression that there are outstanding diagnostic tests that might provide a clue on how to successfully treat the illness. She tells me that no one has discussed the possibility of a type of permanent brain injury from the ongoing status epilepticus. For these reasons, at this time, she would like full CODE STATUS and ongoing aggressive care including tracheostomy if necessary. She has her discussion about a possible brain biopsy and she would agree to this as a "last resort." == The patient's would benefit greatly from an open and jeniffer discussion from neurology regarding prognosis. This discussion will be important before she has to make decisions regarding tracheostomy and possible brain biopsy. Important questions include the following: * Does neurology believe the patient may have suffered any type of permanent brain injury from the ongoing status epilepticus? If so how severe might this be and what can be expected should he survive? * The patient's understands that there are still outstanding diagnostic tests. Of the remaining possibilities in the differential, which are treatable ? With treatment, what type of recovery can we expect? * What is the best possible outcome from her brain biopsy? What diagnoses might be made from that test that would be treatable and likely bring the patient back to normal physical and cognitive abilities? It is important that neurology weigh in on overall prognosis so the rest of the medical team can deliver a unified message. Palliative care will be much better equipped to help with decision making with this information. ==Symptoms * Pain: There are no known prehospitalization pain syndromes. Current sources of pain might include prolonged bedbound status; orotracheal intubation; nasogastric intubation; Sparrow catheter; rectal tube; soft wrist restraints; extensive edema. It is unclear to what extent the patient is able to experience pain. Patient currently has orders for fentanyl, and propofol. No further recommendations at this time. * Dyspnea: Dyspnea is well controlled with mechanical ventilation. The patient 's opiates, propofol, and midazolam would also mitigate any dyspnea. No further recommendations at this time . * Edema: Patient has a significant positive fluid balance. Patient is being diuresed currently. No further recommendations at this time. * Encephalopathy: The challenges to find the underlying illness and treat that. There has been an extensive effort to diagnosis problem with no success. I have no recommendations at this time. == Though this patient might benefit from a transfer to a tertiary care medical center, because his spouse cannot drive, she is very reluctant to let this happen. She would need to know what specific things that center could offer. She would also need to know that the hospital costs would be born by the [employer]. == Palliative care will continue to follow to assist with symptom management and to further clarify goals of medical treatment as the clinical course evolves. We will also try to support the patient's spouse. . Thank you for the opportunity to participate in the care of Mr. Luong. . Attestation To help prompt me to consider important information that might be impacting today's encounter and assessment, information from prior notes written by myself or my colleagues may have been "brought forward" into today's note. My signature on this note, however, is an attestation that I personally performed the exam, history, and/or decision-making noted today, and, unless otherwise indicated, the interactions with patient, family, and staff as well as the review of records all occurred today. I also attest that the listed assessment and stated plan reflect my best clinical judgment today based on the combination of historical information, prior notes, and today's exam/ interactions. When time spent is documented, it refers only to time spent today by the signer, or if indicated, combined time spent today by collaborating physician/nurse practitioner. . Clinton Jo MD Nov 15, 2016 17:08
[2016-11-15] MEDS ORDERED: GADODIAMIDE PF 287 MG/ML 20 ML VIAL (for RAD MRI) IVCONTRAST ONE (17:35)
--- NOTE | 2016-11-15 18:03 | HHI.PR ---
Subjective Remarks 66 YOWM with AMS, sz, renal insuff Intubated for airway protection. Noted subclinical sz on stoping Versed Sedated with Versed 10 mg /hr at BS On Fi02 35% Starts seizing on weaning sedation Objective Vital Signs Vital Signs Date Time Temp Pulse Resp B/P (MAP) Pulse Ox O2 Delivery O2 Flow Rate FiO2 11/15/16 16:00 64 11/15/16 16:00 97.9 64 16 134/66 (88) 94 11/15/16 16:00 35 11/15/16 15:00 100 100 11/15/16 14:00 67 11/15/16 12:54 99 35 11/15/16 12:00 58 11/15/16 12:00 35 11/15/16 12:00 98.0 58 17 112/62 (79) 99 11/15/16 10:17 97 35 11/15/16 10:00 62 11/15/16 08:00 35 11/15/16 08:00 61 11/15/16 08:00 97.8 61 18 94/56 (69) 100 11/15/16 07:54 100 35 11/15/16 06:00 61 11/15/16 04:06 99 35 11/15/16 04:00 62 11/15/16 04:00 35 11/15/16 04:00 97.4 62 18 99/59 (72) 98 11/15/16 02:00 62 11/15/16 01:44 98 35 11/15/16 00:00 97.5 62 18 91/53 (66) 99 11/15/16 00:00 62 11/15/16 00:00 35 11/14/16 22:00 66 11/14/16 21:05 100 35 11/14/16 20:00 35 11/14/16 20:00 97.1 65 2 98/56 (70) 100 11/14/16 20:00 65 I/O 11/14/16 11/14/16 11/14/16 11/15/16 11/15/16 11/15/16 07:00 15:00 23:00 07:00 15:00 23:00 Intake Total 2290 ml 678 ml 1567 ml 1902.0 ml 793 ml 410 ml Output Total 1700 ml 1600 ml 1300 ml 3400 ml Balance 590 ml 678 ml -33 ml 602.0 ml 793 ml -2990 ml IV Total 913 ml 678 ml 563 ml 748.0 ml 466 ml 410 ml Tube Feeding 677 ml 644 ml 554 ml 327 ml Other 700 ml 360 ml 600 ml Output Urine Total 1300 ml 1000 ml 800 ml 2500 ml Stool Total 400 ml 600 ml 500 ml 900 ml Result Diagram: 11/15/1651411/15/16514 Objective Remarks GENERAL: WBWN male, unresponsive SKIN: Warm and dry. HEAD: Normocephalic. EYES: No scleral icterus. No injection or drainage. NECK: Supple, trachea midline. No JVD or lymphadenopathy. CARDIOVASCULAR: Regular rate and rhythm without murmurs, gallops, or rubs. RESPIRATORY: Breath sounds equal bilaterally. No accessory muscle use. GASTROINTESTINAL: Abdomen soft, non-tender, nondistended. MUSCULOSKELETAL: No cyanosis, or edema. BACK: Nontender without obvious deformity. No CVA tenderness. A/P Assessment and Plan AMS SZ disorder Renal insuff ? Cerebritis RF, on vent PLAN Vent Support Anti sz meds per Neuro Monitor renal functions Neuro following pt. DW at BS Sedation with versed PO Vanco Diurease meeting Palliative care Stanley Malhotra MD Nov 15, 2016 18:03
--- NOTE | 2016-11-15 19:23 | HHI.IDPN ---
Subjective Subjective Remarks ID Xcover for Dr Nguyen remains on vent not much ETT secretions afebrile stioll stooling a lot no change in mental status Antibiotics CFTX vancpo Po Past Medical History Hypertension Diabetes Dyslipidemia Depression Past Surgical History Umbilical hernia repair Allergies: Coded Allergies: penicillin G (Unverified Allergy, Severe, 10/17/16) Objective . Vital Signs Date Time Temp Pulse Resp B/P (MAP) Pulse Ox O2 Delivery O2 Flow Rate FiO2 11/15/16 18:02 96 35 11/15/16 18:00 63 11/15/16 16:00 64 11/15/16 16:00 97.9 64 16 134/66 (88) 94 11/15/16 16:00 35 11/15/16 15:00 100 100 11/15/16 14:00 67 11/15/16 12:54 99 35 11/15/16 12:00 58 11/15/16 12:00 35 11/15/16 12:00 98.0 58 17 112/62 (79) 99 11/15/16 10:17 97 35 11/15/16 10:00 62 11/15/16 08:00 35 11/15/16 08:00 61 11/15/16 08:00 97.8 61 18 94/56 (69) 100 11/15/16 07:54 100 35 11/15/16 06:00 61 11/15/16 04:06 99 35 11/15/16 04:00 62 11/15/16 04:00 35 11/15/16 04:00 97.4 62 18 99/59 (72) 98 11/15/16 02:00 62 11/15/16 01:44 98 35 11/15/16 00:00 97.5 62 18 91/53 (66) 99 11/15/16 00:00 62 11/15/16 00:00 35 11/14/16 22:00 66 11/14/16 21:05 100 35 11/14/16 20:00 35 11/14/16 20:00 97.1 65 2 98/56 (70) 100 11/14/16 20:00 65 11/15/16 11/15/16 11/16/16 15:00 23:00 07:00 Intake Total 793 ml 530 ml Output Total 3400 ml Balance 793 ml -2870 ml IV Total 466 ml 530 ml Tube Feeding 327 ml Output Urine Total 2500 ml Stool Total 900 ml . Laboratory Tests Test 11/14/16 04:07 11/15/16 05:15 White Blood Count 8.6 TH/MM3 10.4 TH/MM3 Red Blood Count 3.42 MIL/MM3 2.85 MIL/MM3 Hemoglobin 10.7 GM/DL 8.8 GM/DL Hematocrit 32.2 % 27.0 % Mean Corpuscular Volume 94.2 FL 94.6 FL Mean Corpuscular Hemoglobin 31.5 PG 31.0 PG Mean Corpuscular Hemoglobin Concent 33.4 % 32.8 % Red Cell Distribution Width 13.8 % 14.3 % Platelet Count 109 TH/MM3 135 TH/MM3 Mean Platelet Volume 10.2 FL 10.2 FL Neutrophils (%) (Auto) 91.1 % Lymphocytes (%) (Auto) 3.5 % Monocytes (%) (Auto) 4.9 % Eosinophils (%) (Auto) 0.1 % Basophils (%) (Auto) 0.4 % Neutrophils # (Auto) 7.8 TH/MM3 Lymphocytes # (Auto) 0.3 TH/MM3 Monocytes # (Auto) 0.4 TH/MM3 Eosinophils # (Auto) 0.0 TH/MM3 Basophils # (Auto) 0.0 TH/MM3 CBC Comment AUTO DIFF Differential Total Cells Counted 100 Neutrophils % (Manual) 93 % Lymphocytes % 2 % Monocytes % 3 % Neutrophils # (Manual) 8.2 TH/MM3 Metamyelocytes 1 % Myelocytes 1 % Differential Comment FINAL DIFF MANUAL Platelet Estimate LOW Platelet Morphology Comment NORMAL Ovalocytes 1+ Laboratory Tests Test 11/14/16 04:07 11/15/16 05:15 Blood Urea Nitrogen 33 MG/DL 32 MG/DL Creatinine 0.74 MG/DL 0.69 MG/DL Random Glucose 137 MG/DL 127 MG/DL Total Protein 5.9 GM/DL Albumin 1.2 GM/DL Calcium Level 7.4 MG/DL 7.5 MG/DL Phosphorus Level 3.0 MG/DL 3.2 MG/DL Magnesium Level 2.1 MG/DL 2.3 MG/DL Alkaline Phosphatase 61 U/L Aspartate Amino Transf (AST/SGOT) 72 U/L Alanine Aminotransferase (ALT/SGPT) 75 U/L Total Bilirubin 0.2 MG/DL Sodium Level 150 MEQ/L 148 MEQ/L Potassium Level 4.1 MEQ/L 4.3 MEQ/L Chloride Level 116 MEQ/L 113 MEQ/L Carbon Dioxide Level 27.8 MEQ/L 28.8 MEQ/L Anion Gap 6 MEQ/L 6 MEQ/L Estimat Glomerular Filtration Rate 105 ML/MIN 114 ML/MIN Protein Corrected Calcium 8.1 MG/DL Imaging Last Impressions Chest X-Ray 11/15/16 0600 Signed Impressions: Service Date/Time: Tuesday, November 15, 2016 04:21 - CONCLUSION: 1. Stable basilar airspace disease and probable small effusions. Support apparatus unchanged. Kit Cates MD Brain MRI 11/15/16 0000 Signed Impressions: Service Date/Time: Tuesday, November 15, 2016 15:53 - CONCLUSION: Stable MRI of the brain with subtle increased signal pinto-white matter junction right parietal and occipital regions. Rahat Frey MD FACR Upper Extremity Ultrasound 11/04/16 0000 Signed Impressions: Service Date/Time: Friday, November 04, 2016 18:24 - CONCLUSION: Occlusion of the cephalic vein. The other veins are patent. Everett Block MD Lower Extremity Ultrasound 11/03/16 0000 Signed Impressions: Service Date/Time: Thursday, November 03, 2016 15:19 - CONCLUSION: Negative for deep venous thrombosis. Rahat Frye MD FACR Chest CT 11/01/16 0000 Signed Impressions: Service Date/Time: Tuesday, November 01, 2016 15:59 - CONCLUSION: Minimal nonspecific adenopathy the bibasilar parenchymal changes worse on the left. Rahat Frey MD FACR Abdomen/Pelvis CT 11/01/16 0000 Signed Impressions: Service Date/Time: Tuesday, November 01, 2016 16:04 - CONCLUSION: Nonspecific minimal bowel wall thickening transverse colon. There are no ancillary signs of malignancy. Rahat Frey MD FACR Lumbar Puncture Fluoroscopy 10/26/16 0000 Signed Impressions: Service Date/Time: October 12:24 - CONCLUSION: Uncomplicated fluoroscopically guided cervical puncture. Kranthi Lloyd MD Physical Exam CONSTITUTIONAL/GENERAL: On the vent, looks comfortable. SKIN: No jaundice, rashes, or lesions. HEAD: Atraumatic. Normocephalic. EYES: Pupils equal and round and reactive. No scleral icterus. No injection or drainage. Fundi not examined. ENT: Hearing not tested. Nose without bleeding or purulent drainage. Orally intubated NECK: Trachea midline. Supple, nontender. CARDIOVASCULAR: Regular rate and rhythm without murmurs, gallops, or rubs. No JVD. Peripheral pulses symmetric. RESPIRATORY/CHEST: Coarse breath sounds bilaterally GASTROINTESTINAL: Abdomen soft, non-tender, mildly distended. No hepato- splenomegaly, or palpable masses. No guarding. Bowel sounds present. Incontinent of large amount of liquid brown stool GENITOURINARY: Mcdaniel catheter in place with clear yellow urine MUSCULOSKELETAL: Extremities without clubbing, cyanosis, or edema. No mottling or clubbing. NEUROLOGICAL: Sedated, ? 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 Creutzfeldt ryann in differential, also possible autoimmune encepalitis such as NMDA, paraneoplastic repeat brain MRI 11/15 with worsening subtle changes 14-3-3 PROTEIN,CSF: LESS THAN 2 ng/mL - ASH neg, ESR wnl - MRI cw cerebritis/encephalitis clinicall progression of neurological symptoms HSV negative CSF with nl glc, protein, bordeline moncytic pleocytosis HIV negative Lymphopenia Progressive thrombocytopenia: improved Respiratory failure UTI, E.coli, bacteremic - deshpande S PNA: growing multiple GNRs (Enterobacter, E.coli), MSSA C.diff - high volume diarrhea RECS: cont oral vancomycin; anticipate 14 days of oral vancomycin dc CFTX fu repeat BC Follow temps, WBC Pt will probably need brain bx to estabnlish diagnosis dw @ b/s [place] Mackay MD Nov 15, 2016 19:23
--- NOTE | 2016-11-15 19:29 | MG ---
cc: OKSANA CABRAL M.D. Lab No: [id number] Date: 11/15/2016 Age: 66 Sex: M Race: __ TECHNIQUE 17 channel EEG. DESCRIPTION The background rhythm is generally slow in the delta frequency at roughly 2-3 Hz. There are periodic discharges bilaterally of sharp activity of low amplitude occurring every two to three seconds consistent with bilateral PLEDS. It is very low amplitude slowing. No other abnormalities identified. INTERPRETATION Abnormal study consistent with severe encephalopathy as well as bilateral PLEDS. MD DILEEP Meeks/ARTEMIO /6:58 PM /7:23 PM
--- NOTE | 2016-11-15 19:41 | HHI.PR ---
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 Creutzfeldt ryann in differential, also possible autoimmune encepalitis such as NMDA, paraneoplastic Plan follow up paraneoplastic antibodies and anti nmda antibody--full panel not back. 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 Branham to consider and f/u dilantin/depakote pending Subjective Subjective Comments No acute events reported Active Medications Current Medications Medications (Trade) Dose Ordered Sig/Alyssa Route Start Time Stop Time Status Last Admin (NS Flush) 2 ml UNSCH PRN IV FLUSH 10/25/16 00:45 (NS Flush) 2 ml BID IV FLUSH 10/25/16 09:00 11/15/16 08:20 (Zofran Inj) 4 mg Q6H PRN IVP 10/25/16 00:45 (Narcan Inj) 0.4 mg UNSCH PRN IV 10/25/16 00:45 (Ativan Inj) 1 mg Q6H PRN IV 10/26/16 21:30 11/08/16 17:34 (Catapres-Tts 0.1mg Patch.7d) 1 patch Q7D T-DERMAL 10/29/16 16:00 11/12/16 16:43 Miscellaneous Information 1 Q7D T-DERMAL 11/05/16 16:00 11/12/16 16:00 Lacosamide 100 mg/ Sodium Chloride 110 ml @ 110 mls/hr Q6H IV 11/01/16 15:00 11/15/16 17:35 (Peridex 0.12% Liq) 15 ml BID@08,20 MT 11/01/16 20:00 11/15/16 08:22 Midazolam HCl 100 ml @ 2 mls/hr TITRATE PRN IV 11/01/16 12:30 11/15/16 11:34 (Protonix Inj) 40 mg Q24H IV PUSH 11/01/16 16:00 11/15/16 15:02 (Lovenox Inj) 40 mg Q24H SQ 11/02/16 09:00 Future hold 11/15/16 08:16 Potassium Chloride 100 ml @ 50 mls/hr Q2H PRN IV 11/01/16 14:00 Potassium Chloride 100 ml @ 50 mls/hr Q2H PRN IV 11/01/16 14:00 (K-Lyte Cl Eff) 50 meq UNSCH PRN PO 11/01/16 14:00 Potassium Chloride 100 ml @ 25 mls/hr UNSCH PRN IV 11/01/16 14:00 Potassium Chloride 100 ml @ 50 mls/hr Q2H PRN IV 11/01/16 14:00 Magnesium Sulfate 4 gm/Sodium Chloride 100 ml @ 50 mls/hr UNSCH PRN IV 11/01/16 14:00 (Mag-Ox) 800 mg UNSCH PRN PO 11/01/16 14:00 Magnesium Sulfate 2 gm/Sodium Chloride 100 ml @ 50 mls/hr UNSCH PRN IV 11/01/16 14:00 (K-Phos) 2,000 mg Q4H PRN PO 11/01/16 14:00 Sodium Phosphate 30 mmol/Sodium Chloride 250 ml @ 42 mls/hr UNSCH PRN IV 11/01/16 14:00 11/08/16 08:48 (K-Phos) 2,000 mg UNSCH PRN PO/TUBE 11/01/16 14:00 Potassium Phosphate 30 mmol/ Sodium Chloride 260 ml @ 42 mls/hr UNSCH PRN IV 11/01/16 14:00 (Tylenol 160 Mg/ 5 ml Liq) 325 mg Q6H PRN NG 11/01/16 14:00 11/11/16 20:35 (Lactulose Liq) 15 ml TID PO 11/05/16 09:00 11/15/16 17:38 Fentanyl Citrate 250 ml @ 5 mls/hr TITRATE PRN IV 11/05/16 22:15 11/07/16 19:41 (Levemir Inj) 14 units Q12HR SQ 11/06/16 09:00 11/15/16 08:16 (D50w (Vial) Inj) 50 ml UNSCH PRN IV 11/07/16 09:30 (Glucagon Inj) 1 mg UNSCH PRN OTHER 11/07/16 09:30 (NovoLIN R SUPPLEMENTAL SCALE) 1 Q6H SQ 11/07/16 11:00 11/14/16 05:00 (SoluMEDROL INJ) 60 mg Q6H IV 11/11/16 02:00 11/15/16 13:43 Propofol 100 ml @ 15.3 mls/hr CONTINUOUS PRN IV 11/11/16 17:15 11/15/16 15:02 (Albuterol Neb) 2.5 mg Q2HR NEB PRN NEB 11/12/16 15:15 (Duoneb Neb) 1 ampule Q6HR NEB NEB 11/12/16 16:00 11/15/16 19:19 (VANCOMYCIN for oral use only) 500 mg Q6H PO 11/13/16 00:00 11/15/16 17:39 Fosphenytoin Sodium 200 mgpe/ Sodium Chloride 54 ml @ 216 mls/hr Q6HR IV 11/14/16 12:00 11/15/16 18:52 Valproate Sodium 750 mg/Sodium Chloride 107.5 ml @ 105 mls/hr Q4HR IV 11/14/16 16:00 11/15/16 17:39 (Free Water) VOLUME: 300 ML Q4HR G-TUBE 11/15/16 16:00 11/15/16 15:02 (Lasix Inj) 40 mg BID@09,18 IV PUSH 11/15/16 14:45 11/15/16 17:39 (Diamox Inj) 500 mg Q8H IV PUSH 11/15/16 16:00 11/16/16 08:01 11/15/16 17:39 Allergies Allergies Coded Allergies penicillin G (Unverified Allergy, Severe, 10/17/16) Review of Systems All other ROS: ROS reviewed as documented in chart Exam I&O / VS 11/15/16 11/15/16 11/16/16 15:00 23:00 07:00 Intake Total 793 ml 530 ml Output Total 3400 ml Balance 793 ml -2870 ml IV Total 466 ml 530 ml Tube Feeding 327 ml Output Urine Total 2500 ml Stool Total 900 ml Vital Signs Date Time Temp Pulse Resp B/P (MAP) Pulse Ox O2 Delivery O2 Flow Rate FiO2 11/15/16 18:02 96 35 11/15/16 18:00 63 11/15/16 16:00 64 11/15/16 16:00 97.9 64 16 134/66 (88) 94 11/15/16 16:00 35 11/15/16 15:00 100 100 11/15/16 14:00 67 11/15/16 12:54 99 35 11/15/16 12:00 58 11/15/16 12:00 35 11/15/16 12:00 98.0 58 17 112/62 (79) 99 11/15/16 10:17 97 35 11/15/16 10:00 62 11/15/16 08:00 35 11/15/16 08:00 61 11/15/16 08:00 97.8 61 18 94/56 (69) 100 11/15/16 07:54 100 35 11/15/16 06:00 61 11/15/16 04:06 99 35 11/15/16 04:00 62 11/15/16 04:00 35 11/15/16 04:00 97.4 62 18 99/59 (72) 98 11/15/16 02:00 62 11/15/16 01:44 98 35 11/15/16 00:00 97.5 62 18 91/53 (66) 99 11/15/16 00:00 62 11/15/16 00:00 35 11/14/16 22:00 66 11/14/16 21:05 100 35 11/14/16 20:00 35 11/14/16 20:00 97.1 65 2 98/56 (70) 100 11/14/16 20:00 65 Exam Comments Intubated and on versed.propofol --nonresponsive CN--PERRL, MOTOR--no focal deficit.No clinical sz activity Objective Radiology Results MRI brain--no change in subtle increase cortical signal in parieto occipital area on the right Micro and Labs Laboratory Tests Test 11/15/16 03:43 11/15/16 05:15 Blood Gas Puncture Site LT BRACHIAL Blood Gas Patient Temperature 98.6 Blood Gas HCO3 26 Blood Gas Base Excess 2.6 Blood Gas Oxygen Saturation 94 Arterial Blood pH 7.45 Arterial Blood Partial Pressure CO2 39 Arterial Blood Partial Pressure O2 82 Arterial Blood Oxygen Content 11.2 Arterial Blood Carboxyhemoglobin 1.9 Arterial Blood Methemoglobin 1.0 Blood Gas Hemoglobin 8.4 Oxygen Delivery Device VENTILATOR Blood Gas Ventilator Setting COMMENT Blood Gas Inspired Oxygen 35 White Blood Count 10.4 Red Blood Count 2.85 Hemoglobin 8.8 Hematocrit 27.0 Mean Corpuscular Volume 94.6 Mean Corpuscular Hemoglobin 31.0 Mean Corpuscular Hemoglobin Concent 32.8 Red Cell Distribution Width 14.3 Platelet Count 135 Mean Platelet Volume 10.2 Blood Urea Nitrogen 32 Creatinine 0.69 Random Glucose 127 Calcium Level 7.5 Phosphorus Level 3.2 Magnesium Level 2.3 Sodium Level 148 Potassium Level 4.3 Chloride Level 113 Carbon Dioxide Level 28.8 Anion Gap 6 Estimat Glomerular Filtration Rate 114 Phenytoin (Dilantin) Level 9.2 Valproic Acid (Depakene) Level 54 Date/Time Source Procedure Growth Status 11/11/16 01:37 Blood Peripheral Aerobic Blood Culture - Preliminary NO GROWTH IN 4 DAYS Resulted 11/11/16 01:37 Blood Peripheral Anaerobic Blood Culture - Preliminary NO GROWTH IN 4 DAYS Resulted 10/26/16 13:00 Cerebral Spinal Fluid Lumbar Puncture Fungal Smear - Final NO FUNGAL ELEMENTS SEEN. Resulted 10/26/16 13:00 Cerebral Spinal Fluid Lumbar Puncture Fungal Culture - Preliminary NO GROWTH IN 2 WEEKS Resulted 11/05/16 09:15 Sputum Endotracheal Gram Stain - Final Complete 11/05/16 09:15 Sputum Culture - Final Staphylococcus Aureus Escherichia Coli Enterobacter Aerogenes Complete 11/06/16 03:00 Urine Catheterized Urine Urine Culture - Final NO GROWTH IN 48 HOURS. Complete Diagnostic Tests EEG---very low amplitude Miguelito Arellano PhD Nov 15, 2016 19:41
[2016-11-16] VITALS (37 sets, daily range): BP systolic 82–103; BP diastolic 49–55; PULSE 59–66; RESP 10–23; TEMP 98–98.1; O2SAT 91–100
[2016-11-16] MEDS: methylPREDNISolone SOD SUCC 125 MG/2 ML VIAL IV SCH ×4 (01:07→19:47)
[2016-11-16] MEDS: PROPOFOL 1000 MG/100 ML INJ 100 ML IV PRN ×4 (02:05→18:23)
[2016-11-16] MEDS: FOSPHENYTOIN INJ 200 MGPE in SODIUM CHLORIDE 0.9% INJ 50 ML IV SCH ×4 (02:06→18:15)
[2016-11-16] MEDS: RESP: ALBUTEROL 2.5 MG/IPRATROPIUM 0.5 MG NEB (SCH) NEB ×2 (03:01→08:37)
[2016-11-16] MEDS: LACOSAMIDE INJ 100 MG in SODIUM CHLORIDE 0.9% INJ 100 ML IV SCH ×4 (03:30→21:51)
[2016-11-16] MEDS: FREE WATER G-TUBE SCH ×5 (04:00→19:46)
[2016-11-16 04:17] LABS: HEMATOCRIT 27.4 % (39.0-51.0); MEAN CELL VOLUME 96.1 FL (80.0-100.0); MEAN CORPUSCULAR HEMOGLOBIN 31.2 PG (27.0-34.0); MEAN CORPUSCULAR HGB CONC 32.4 % (32.0-36.0); PLATELET COUNT 118 TH/MM3 (150-450); RED BLOOD COUNT 2.85 MIL/MM3 (4.50-5.90); RED CELL DISTRIBUTION WIDTH 14.4 % (11.6-17.2); REVIEW FLAG FINAL; WHITE BLOOD COUNT 12.9 TH/MM3 (4.0-11.0)
[2016-11-16 04:39] LABS: POTASSIUM 4.1 MEQ/L (3.5-5.1)
[2016-11-16 04:50] LABS: CALCIUM-PROTEIN CORRECTED 7.9 MG/DL (8.5-10.1)
[2016-11-16] MEDS: INSULIN NovoLIN REGULAR SUPPLEMENTAL SCALE SQ SCH ×4 (05:00→23:00)
[2016-11-16] MEDS: VALPROATE INJ 750 MG in SODIUM CHLORIDE 0.9% INJ 100 ML IV SCH ×5 (05:10→19:46)
[2016-11-16] MEDS: VANCOMYCIN 500 MG VIAL (FOR ORAL USE ONLY) PO SCH ×3 (05:10→18:00)
[2016-11-16] MEDS: MIDAZOLAM 100 MG/NS 100 ML DRIP Premix IV PRN ×2 (06:21→18:16)
[2016-11-16] MEDS ORDERED: FUROSEMIDE 40 MG/4 ML VIAL IV PUSH ONE (07:45)
--- NOTE | 2016-11-16 08:18 | HHI.CCPN ---
Subjective Remarks/Hospital Course This is a 66-year-old man with history of diabetes, hypertension, dyslipidemia who about a month ago started having difficulty with balance with shuffling type of gait and resting tremor along with recent cognitive decline as well. His initial admission was on 10/06/16, as initial workup was negative patient was admitted to psych unit on 10/06/16 for suicidal ideations and altered mental status. He was evaluated by neurology Dr Branham, possibility of Parkinsonian symptoms and vitamin B 12 deficiency was entertained, but there was no improvement with treatment. He was re admitted to hospitalist service with worsening mental status on 10/25/16. Per Dr. Branham, MRI showed possible cerebritis. Differential included Creutzfeldt-Ministerio. But 14-3-3 protein for Creutzfeldt-Ministerio was negative. Currently on acyclovir for possibility of viral cerebritis. EEG done 10/24/16 showed generalized epileptiform activity. Patient was placed on Cerebyx, Keppra. Keppra was DCd due to rash and currently patient is on Cerebyx and Vimpat. Repeat EEGs from 10/31/16 and today shows continued seizure activity/subclinical seizures. Patient continues to be encephalopathic not responding. EEG today shows continued seizure activity indicating status epilepticus. Critical-care medicine was consulted by Dr. Branham today for continuous Versed infusion after intubation I evaluated the patient in ICU. He barely opens his eyes to painful stimuli localizes with right upper extremity withdrawal of any other extremities. Discussed with Dr. Branham multiple times. In his opinion, this appears to be a autoimmune encephalitis less likely to be infectious. Anti-NMDA receptor antibody ordered. Per Dr. Branham D/D possibly paraneoplastic, vasculitic or NMDA- receptor encephalitis. Currently patient is on IV Solu-Medrol and IVIG had been ordered by Dr. Branham. Initiate continuous EEG monitoring. TTP/HUS unlikely, but patient has E Coli UTI, I have asked for peripheral smear review by pathologist 11/02: remains encephalopathic, but also very deeply sedated on versed drip. continuous EEG with intermittent sharp spikes that correspond with rhythmic neck movement. neurology adding additional anti-epileptics. peripheral smear without Schistocytes. currently receiving IVIG for possible au immune encephalopathy. 11/03 Patient remains sedated and intubated. Afebrile. 11/04 Patient remains intubated and sedated with Versed 10mg/hr. Tmax 100.6 11/05 No events overnight. On Versed drip for sedation, no seizures overnight. Patient is on continuous EEG monitoring. T: 101.0 last night. 11/06 Patient is sedated with Versed and Fentanyl. No seizures overnight. Afebrile. 11/07 Patient remains sedated and intubated. Afebrile. No recurrent seizures overnight. 11/08 TMax 99.6. The patient was noted to be on sedation vacation, EEG was being performed patient was noted to have subclinical seizures persistent. The patient was immediately bolused with 5 mg IV.Versed infusion continued at 8 mg/ h noted cessation of subclinical seizures and the patient continues to be monitored via EEG. Noted phenytoin and valproic acid levels were noted subtherapeutic today. 11/09 TMax 100.7. No further sedation holiday per Neurology due to ongoing subclinical seizure activity.the patient continues on AED's. AED levels pending in am.The patient remained on continuous EEG monitoring throughout the night with cessation of subclinical seizure activity. 11/10: No acute events overnight. EEG performed today. Propofol infusion added to medication regimen.\ 11/12: Maximum 101.9. Currently afebrile. Tolerating tube feeding. Positive BM. 11/13: Moved from room 526 to room 500 due to leaking window. Early afebrile. Diagnosed with C. difficile EPID O27 negative. Started on oral vancomycin per infectious disease. Otherwise no changes overnight. 11/14: The patient continues on deep sedation secondary to subclinical seizure activity, per Dr. Branham recommendation. Continues on Versed 10 mg, propofol 25 mcgs. Discussed extensively possibility of tracheostomy with today. Further discussion planned tomorrow, after results from EEG and repeat MRI are obtained, to assess for continued subclinical seizure activity. 11/15: no improvements in mental status. will get palliative involved. poor prognosis. still seizes with any lightening of deep sedation. Subjective 11/16: No changes or improvements. MRI with persistence of subtle changes in the temporal and occipital regions. Highest on the differential is spongiform encephalitis at this point per neurology. Neuro considering possible brain biopsy. Palliative involved. Objective Vital Signs Date Time Temp Pulse Resp B/P (MAP) Pulse Ox O2 Delivery O2 Flow Rate FiO2 11/16/16 06:00 66 11/16/16 04:09 100 35 11/16/16 04:00 98.1 18 96/55 (69) Intake and Output 11/16/16 11/16/16 11/17/16 08:00 16:00 00:00 Intake Total 2023.0 ml Output Total 1600 ml Balance 423.0 ml Result Diagram: 11/16/16 0342 11/16/16 0342 Imaging Last Impressions Chest X-Ray 11/14/16 0600 Signed Impressions: Service Date/Time: Monday, November 14, 2016 04:59 - CONCLUSION: 1. Basilar airspace disease similar to November 12. Endotracheal tube and nasogastric tube in satisfactory position. Kit Cates MD Brain MRI 11/07/16 0000 Signed Impressions: Service Date/Time: Monday, November 07, 2016 11:17 - CONCLUSION: 1. Continued subtle signal abnormality involving the pinto-white junction in the right occipital and right parietal regions. There has been no significant change when compared to the prior exam. Kranthi Lloyd MD Upper Extremity Ultrasound 11/04/16 0000 Signed Impressions: Service Date/Time: Friday, November 04, 2016 18:24 - CONCLUSION: Occlusion of the cephalic vein. The other veins are patent. Everett Block MD Lower Extremity Ultrasound 11/03/16 0000 Signed Impressions: Service Date/Time: Thursday, November 03, 2016 15:19 - CONCLUSION: Negative for deep venous thrombosis. Rahat Frey MD FACR Chest CT 11/01/16 0000 Signed Impressions: Service Date/Time: Tuesday, November 01, 2016 15:59 - CONCLUSION: Minimal nonspecific adenopathy the bibasilar parenchymal changes worse on the left. Rahat Frey MD FACR Abdomen/Pelvis CT 11/01/16 0000 Signed Impressions: Service Date/Time: Tuesday, November 01, 2016 16:04 - CONCLUSION: Nonspecific minimal bowel wall thickening transverse colon. There are no ancillary signs of malignancy. Rahat Frey MD FACR Lumbar Puncture Fluoroscopy 10/26/16 0000 Signed Impressions: Service Date/Time: October 12:24 - CONCLUSION: Uncomplicated fluoroscopically guided cervical puncture. Kranthi Lloyd MD Last Impressions Chest X-Ray 11/12/16 0600 Signed Impressions: Service Date/Time: Saturday, November 12, 2016 03:47 - CONCLUSION: Bilateral perihilar infiltrates and right small to moderate pleural effusion, all slightly worse in the interim. Madhav Oneil MD Brain MRI 11/07/16 0000 Signed Impressions: Service Date/Time: Monday, November 07, 2016 11:17 - CONCLUSION: 1. Continued subtle signal abnormality involving the pinto-white junction in the right occipital and right parietal regions. There has been no significant change when compared to the prior exam. Kranthi Lloyd MD Upper Extremity Ultrasound 11/04/16 0000 Signed Impressions: Service Date/Time: Friday, November 04, 2016 18:24 - CONCLUSION: Occlusion of the cephalic vein. The other veins are patent. Everett Block MD Lower Extremity Ultrasound 11/03/16 0000 Signed Impressions: Service Date/Time: Thursday, November 03, 2016 15:19 - CONCLUSION: Negative for deep venous thrombosis. Rahat Frey MD FACR Chest CT 11/01/16 0000 Signed Impressions: Service Date/Time: Tuesday, November 01, 2016 15:59 - CONCLUSION: Minimal nonspecific adenopathy the bibasilar parenchymal changes worse on the left. Rahat Frey MD FACR Abdomen/Pelvis CT 11/01/16 0000 Signed Impressions: Service Date/Time: Tuesday, November 01, 2016 16:04 - CONCLUSION: Nonspecific minimal bowel wall thickening transverse colon. There are no ancillary signs of malignancy. Rahat Frey MD FACR Lumbar Puncture Fluoroscopy 10/26/16 0000 Signed Impressions: Service Date/Time: October 12:24 - CONCLUSION: Uncomplicated fluoroscopically guided cervical puncture. Kranthi Lloyd MD Objective Remarks GENERAL: 66-year-old male, lying in bed, intubated, and sedated. SKIN: Warm and dry. No lesions noted. HEENT: Normocephalic. Pupils equal 2 mm reactive. orotracheally intubated CARDIOVASCULAR: RRR. Telemetry sinus rhythm RESPIRATORY:. Symmetrical excursion. intubated. GASTROINTESTINAL: Abdomen soft, non-tender, nondistended MUSCULOSKELETAL: No obvious deformities. No significant peripheral edema. NEUROLOGICAL: GCS 3T.Deeply sedated on multiple sedatives. Pupils 5 mm bilaterally and reactive. A/P Assessment and Plan Assessment: 66yM with acute encephalopathy of unknown etiology. All tests negative at this point. Prognosis would be poor. palliative on board. If goals of care remain aggressive, then we need to pursue trach and peg. Will discuss today with multidisciplinary team conference and family conference our plan of care from this point. CJD would have a terminal prognosis, as would likely any diagnosis at this point going forward. We will entertain possibility of brain biopsy, understanding that there are risks associated with that with minimal benefit. 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 Goal of RASS -4 -10/31 MRI brain: Subtle signal abdomen only at the pinto-white junction in the right hemisphere as above. The findings may reflect encephalitis or cerebritis -11/07 repeat MRI brain continued subtle signal abnormality involving pinto/white matter junction in right occiput total and right parietal regions. No change from previous MRI -11/10 Continuous EEG, noted subclinical appears worse than 11/08 EEG - Continue IV fosphenytoin 200mg Q6, lacosamide 100 mg every 6 hours valproic acid 600 mill grams IV every 4 hours Recheck levels 11/14 - Workup negative for infectious encephalitis - Ongoing workup for autoimmune encephalitis, anti-NMDA receptor antibody negative. - all paraneoplastic antibodies and anti nmda antibody negative. - Repeat MRI unchanged. - Continue IV Solu-Medrol 60 mg IV Q6 per Dr. Branham/neurology - TTP/HUS unlikely given lack of schistocytes on peripheral smear 11/01 -Hold all sedation vacations per Dr. Branham, due to active seizure activity RESP: Acute hypoxic and hypercarbic respiratory failure PRVC 16/550/03/09/34 Albuterol/ipratropium every 6 hours and when necessary - HOLD SBT / CPAP trials at this time, maintain sedation secondary to active seizure activity -CXR 11/12: Moderate right pleural effusion, atelectasis. CV: -Monitor HR and BP keep MAP>65mmHg Not requiring any interventions and/or vasopressors at the present time Continue clonidine patch 0.1 mg every week. GI: Hypoalbuminemia -Continue tube feeds- Glucerna 1.5 @ 50ml/hr @ goal Pantoprazole 40 mg IV daily for GI prophylaxis - Bowel Regimen with docusate sodium/senna twice a day on hold C. difficile positive-by mouth vancomycin lactulose 15 cc every 8 hours Renal/: Acute kidney injury- resolved. Hypocalcemia - Monitor renal function, - electrolytes replacement as needed per ICU electrolyte protocol Currently stable ID: Encephalitis is probably noninfectious E Coli UTI E. Aerogenes Escherichia coli/staph aureus bacteremia Pneumonia C. difficile Continue with abx (Cefepime, levofloxacin) ID is following monitor for signs of infections ( Fever, WBC) - Blood cultures 11/11 - no growth - Blood,sputum from 11/05: Escherichia coli, sputum cx 11/05: Escherichia coli, Staph Aureus, Enterobacter Aerogenes -Urine cx 10/30: Escherichia coli - TTP/HUS unlikely given negative peripheral smear for schistocytes -ID following-Dr. Mackay. Discontinued cefepime 11/12. Restarted instead on ceftriaxone 11/12. Currently on levofloxacin 500 mg daily and until 11/18 Oral vancomycin 500 every 6 hours for C. difficile +11/12 HEME: Thrombocytopenia Normocytic anemia Superficial thrombus cephalic vein/right - Monitor CBC, CMP, coags, Fibrinogen level 365 11/05, Heme was called and currently signed off -HIT panel is negative No indications for transfusion of blood product at this time ENDO: Type 2 diabetes Hyperglycemia secondary steroids Holding metformin 500 mg twice a day/home medication - Electrolyte replacement per protocol - SSI (High scale Novulin R) Levemir 14 units BID MSK: Wound care consult for eschar noted sacral [id number] recommendations PROPH: - Bilateral lower extremity SCDs. Anoxic. SQ -US RUE: Occlusion of the cephalic vein. -US LE b/L: No DVT - IV pantoprazole LINES: - Utilize peripheral IVs Dispo: Will attempt to have family conference to decide goals and plan of care. Luis Fernando Sadler MD Nov 16, 2016 08:17
[2016-11-16] MEDS: INSULIN DETEMIR 100 UNITS/ML VIAL SQ SCH ×2 (09:00→21:00)
[2016-11-16] MEDS: FUROSEMIDE 40 MG/4 ML VIAL IV PUSH SCH ×2 (09:36→18:15)
[2016-11-16] MEDS: ENOXAPARIN SODIUM 40 MG/0.4 ML SYRINGE SQ SCH (09:37)
[2016-11-16] MEDS: LACTULOSE SYRUP 20 GM/30 ML CUP PO SCH ×3 (09:37→18:14)
--- NOTE | 2016-11-16 10:04 | HHI.HCPN ---
Discussed with Dr. Sadler. He requests palliative arrange family meeting on 11/17 at 8:30am with Dr. Branham, Dr. Sadler and Palliative care team. Left message for spouse, Liberty Luong to arrange meeting. Awaiting return call. called to report she and her son will be able to meet on 11/17/16 at 8:30am as requested. Dr. Sadler notified. . Mari Bobo Nov 16, 2016 10:04
[2016-11-16] MEDS: SODIUM CHLORIDE 0.9% FLUSH 10 ML FLUSH IV FLUSH SCH (10:09)
[2016-11-16] MEDS: CHLORHEXIDINE 0.12% (ORAL KIT) 15 ML CUP MT SCH ×2 (10:09→19:47)
--- NOTE | 2016-11-16 11:17 | HHI.HCPN ---
Reason for visit a. To assist with evaluation and management of symptoms including: pain; dyspnea; encephalopathy; edema b. To assist medical decision maker(s) with: better understanding of current medical conditions; weighing benefits/burdens of medical treatment options; making medical treatment decisions. . Subjective/Interval History Patient seen and examined in ICU. Discussed with nurse, Deepa and Dr. Sadler. No family at bedside. Patient remains sedated on mech vent, FiO2 35%. Afebrile. WBC 12.9, hemoglobin 8.9, hematocrit 27.4, platelets 118. Total protein 6.1. No changes or improvements. MRI with persistence of subtle changes in the temporal and occipital regions. Highest on the differential is spongiform encephalitis at this point per neurology. Neuro considering possible brain biopsy. Dr. Sadler and Dr. Branham have requested family meeting 11/17/16 8:30am with palliative care to review treatment options, prognosis and further clarification of treatment goals. I have left a message for and for nurse to ensure family can meet. . Family/friend interactions Dr. Sadler and I met with at bedside. Dr. Sadler provided medical update, options of continued aggressive care including trach/PEG and brain biopsy vs transition to comfort measures. 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 is appropriately tearful. She continually states "I can't pull the plug." She is not sure what her would want. She is going to speak with her sons and again we offered to speak with her sons. Reminded her that Dr. Sadler, Dr. Branham and palliative care are available to meet on 11/17/16 at 8:30am. She will speak with sons and let s know. 2:15pm: Call from to report she and her son will be here for meeting at 8:30am. Dr. Sadler notified. Advance Directives Living Will: Never completed Health Care Surrogate: Never completed Durable Power of Fuel Cell Battery Technician: Never completed Advance Directive Specifics Date completed: Patient has never completed advance directives . Health Care Surrogate(s): There is no written designation of health care surrogate. . Documented care wishes: There is no written documentation of health care goals or preferences . Significant change in goals: FULL CODE and continued aggressive care. . Objective Vital Signs Date Time Temp Pulse Resp B/P (MAP) Pulse Ox O2 Delivery O2 Flow Rate FiO2 11/16/16 08:37 99 35 11/16/16 06:00 66 11/16/16 04:09 100 35 11/16/16 04:00 98.1 65 18 96/55 (69) 98 11/16/16 04:00 65 11/16/16 04:00 35 11/16/16 02:00 65 11/16/16 00:13 98 35 11/16/16 00:00 98.0 66 18 82/50 (61) 97 11/16/16 00:00 66 11/16/16 00:00 35 11/15/16 22:00 65 11/15/16 22:00 65 18 91/53 (66) 97 11/15/16 20:33 97 35 11/15/16 20:00 66 11/15/16 20:00 97.6 66 18 98/56 (70) 98 11/15/16 20:00 35 11/15/16 18:02 96 35 11/15/16 18:00 63 11/15/16 16:00 64 11/15/16 16:00 97.9 64 16 134/66 (88) 94 11/15/16 16:00 35 11/15/16 15:00 100 100 11/15/16 14:00 67 11/15/16 12:54 99 35 11/15/16 12:00 58 11/15/16 12:00 35 11/15/16 12:00 98.0 58 17 112/62 (79) 99 Intake & Output 11/16/16 11/16/16 07:00 19:00 Intake Total 2383.5 ml Output Total 1600 ml Balance 783.5 ml IV Total 1093.5 ml Tube Feeding 690 ml Other 600 ml Output Urine Total 800 ml Stool Total 800 ml Physical Exam CONSTITUTIONAL/GENERAL: This is an adequately nourished patient with generalized edema, sedated, unresponsive, mechanically ventilated, and the medical intensive care unit bed. There is no apparent distress. TUBES/LINES/DRAINS: Peripheral IV; ETT, nasogastric tube; sparrow catheter; soft wrist restraints; rectal tube; SCDs SKIN: No jaundice, rashes, or lesions. No wounds seen anteriorly. Hands are cool; otherwise skin temperature is normal.. Not diaphoretic. EYES: Pupils equal and round, reactive. No scleral icterus. No injection or drainage. ENT: Unable to evaluate hearing. Nose without bleeding or purulent drainage. Throat without visible erythema, exudates, masses, or lesions though oropharynx and throat very difficult to evaluate with intubations. CARDIOVASCULAR: Regular rate and rhythm without murmurs, gallops, or rubs. No JVD. Peripheral pulses symmetric. RESPIRATORY/CHEST: Symmetric, unlabored respirations. Clear to auscultation. Breath sounds equal bilaterally. No wheezes, rales, or rhonchi. GASTROINTESTINAL: Abdomen soft, non-tender, nondistended. No hepato-splenomegaly , or palpable masses. No guarding. Bowel sounds present. GENITOURINARY: Without palpable bladder distension. Sparrow catheter in place. Scrotal and penile edema is present. MUSCULOSKELETAL: Extremities without clubbing, cyanosis. Significant bilateral upper extremity edema, weeping edema. Some lower extremity edema proximal to the SCDs. No mottling. NEUROLOGICAL: Sedated, unresponsive. PSYCHIATRIC: Unable to assess due to level of responsiveness. . Diagnostic Tests Laboratory Laboratory Tests Test 11/13/16 15:52 11/14/16 04:07 11/15/16 03:43 11/15/16 05:15 Ammonia 40 MCMOL/L (11-32) White Blood Count 8.6 TH/MM3 (4.0-11.0) 10.4 TH/MM3 (4.0-11.0) Red Blood Count 3.42 MIL/MM3 (4.50-5.90) 2.85 MIL/MM3 (4.50-5.90) Hemoglobin 10.7 GM/DL (13.0-17.0) 8.8 GM/DL (13.0-17.0) Hematocrit 32.2 % (39.0-51.0) 27.0 % (39.0-51.0) Mean Corpuscular Volume 94.2 FL (80.0-100.0) 94.6 FL (80.0-100.0) Mean Corpuscular Hemoglobin 31.5 PG (27.0-34.0) 31.0 PG (27.0-34.0) Mean Corpuscular Hemoglobin Concent 33.4 % (32.0-36.0) 32.8 % (32.0-36.0) Red Cell Distribution Width 13.8 % (11.6-17.2) 14.3 % (11.6-17.2) Platelet Count 109 TH/MM3 (150-450) 135 TH/MM3 (150-450) Mean Platelet Volume 10.2 FL (7.0-11.0) 10.2 FL (7.0-11.0) Neutrophils (%) (Auto) 91.1 % (16.0-70.0) Lymphocytes (%) (Auto) 3.5 % (9.0-44.0) Monocytes (%) (Auto) 4.9 % (0.0-8.0) Eosinophils (%) (Auto) 0.1 % (0.0-4.0) Basophils (%) (Auto) 0.4 % (0.0-2.0) Neutrophils # (Auto) 7.8 TH/MM3 (1.8-7.7) Lymphocytes # (Auto) 0.3 TH/MM3 (1.0-4.8) Monocytes # (Auto) 0.4 TH/MM3 (0-0.9) Eosinophils # (Auto) 0.0 TH/MM3 (0-0.4) Basophils # (Auto) 0.0 TH/MM3 (0-0.2) CBC Comment AUTO DIFF Differential Total Cells Counted 100 Neutrophils % (Manual) 93 % (16-70) Lymphocytes % 2 % (9-44) Monocytes % 3 % (0-8) Neutrophils # (Manual) 8.2 TH/MM3 (1.8-7.7) Metamyelocytes 1 % (0-1) Myelocytes 1 % (0-0) Differential Comment FINAL DIFF MANUAL Platelet Estimate LOW (NORMAL) Platelet Morphology Comment NORMAL (NORMAL) Ovalocytes 1+ (NORMAL) Blood Urea Nitrogen 33 MG/DL (7-18) 32 MG/DL (7-18) Creatinine 0.74 MG/DL (0.60-1.30) 0.69 MG/DL (0.60-1.30) Random Glucose 137 MG/DL (74-106) 127 MG/DL (74-106) Total Protein 5.9 GM/DL (6.4-8.2) Albumin 1.2 GM/DL (3.4-5.0) Calcium Level 7.4 MG/DL (8.5-10.1) 7.5 MG/DL (8.5-10.1) Phosphorus Level 3.0 MG/DL (2.5-4.9) 3.2 MG/DL (2.5-4.9) Magnesium Level 2.1 MG/DL (1.5-2.5) 2.3 MG/DL (1.5-2.5) Alkaline Phosphatase 61 U/L (45-117) Aspartate Amino Transf (AST/SGOT) 72 U/L (15-37) Alanine Aminotransferase (ALT/SGPT) 75 U/L (12-78) Total Bilirubin 0.2 MG/DL (0.2-1.0) Sodium Level 150 MEQ/L (136-145) 148 MEQ/L (136-145) Potassium Level 4.1 MEQ/L (3.5-5.1) 4.3 MEQ/L (3.5-5.1) Chloride Level 116 MEQ/L (98-107) 113 MEQ/L (98-107) Carbon Dioxide Level 27.8 MEQ/L (21.0-32.0) 28.8 MEQ/L (21.0-32.0) Anion Gap 6 MEQ/L (5-15) 6 MEQ/L (5-15) Estimat Glomerular Filtration Rate 105 ML/MIN (>89) 114 ML/MIN (>89) Protein Corrected Calcium 8.1 MG/DL (8.5-10.1) Phenytoin (Dilantin) Level 7.8 MCG/ML (10.0-20.0) 9.2 MCG/ML (10.0-20.0) Valproic Acid (Depakene) Level 41 MCG/ML (50-100) 54 MCG/ML (50-100) Blood Gas Puncture Site LT BRACHIAL Blood Gas Patient Temperature 98.6 Blood Gas HCO3 26 mmol/L (22-26) Blood Gas Base Excess 2.6 mmol/L (-2-2) Blood Gas Oxygen Saturation 94 % (90-100) Arterial Blood pH 7.45 (7.380-7.420) Arterial Blood Partial Pressure CO2 39 mmHg (38-42) Arterial Blood Partial Pressure O2 82 mmHg (61-120) Arterial Blood Oxygen Content 11.2 Vol % (12.0-20.0) Arterial Blood Carboxyhemoglobin 1.9 % (0-4) Arterial Blood Methemoglobin 1.0 % (0-2) Blood Gas Hemoglobin 8.4 G/DL (12.0-16.0) Oxygen Delivery Device VENTILATOR Blood Gas Ventilator Setting COMMENT Blood Gas Inspired Oxygen 35 % Test 11/16/16 03:42 White Blood Count 12.9 TH/MM3 (4.0-11.0) Red Blood Count 2.85 MIL/MM3 (4.50-5.90) Hemoglobin 8.9 GM/DL (13.0-17.0) Hematocrit 27.4 % (39.0-51.0) Mean Corpuscular Volume 96.1 FL (80.0-100.0) Mean Corpuscular Hemoglobin 31.2 PG (27.0-34.0) Mean Corpuscular Hemoglobin Concent 32.4 % (32.0-36.0) Red Cell Distribution Width 14.4 % (11.6-17.2) Platelet Count 118 TH/MM3 (150-450) Mean Platelet Volume 10.5 FL (7.0-11.0) Blood Urea Nitrogen 33 MG/DL (7-18) Creatinine 0.76 MG/DL (0.60-1.30) Random Glucose 89 MG/DL (74-106) Total Protein 6.1 GM/DL (6.4-8.2) Calcium Level 7.4 MG/DL (8.5-10.1) Sodium Level 149 MEQ/L (136-145) Potassium Level 4.1 MEQ/L (3.5-5.1) Chloride Level 111 MEQ/L (98-107) Carbon Dioxide Level 31.0 MEQ/L (21.0-32.0) Anion Gap 7 MEQ/L (5-15) Estimat Glomerular Filtration Rate 102 ML/MIN (>89) Protein Corrected Calcium 7.9 MG/DL (8.5-10.1) Result Diagram: 11/16/16 0342 11/16/16 0342 Microbiology Microbiology Date/Time Source Procedure Growth Status 11/11/16 01:37 Blood Peripheral Aerobic Blood Culture - Final NO GROWTH IN 5 DAYS Complete 11/11/16 01:37 Blood Peripheral Anaerobic Blood Culture - Final NO GROWTH IN 5 DAYS Complete 10/26/16 13:00 Cerebral Spinal Fluid Lumbar Puncture Fungal Smear - Final NO FUNGAL ELEMENTS SEEN. Resulted 10/26/16 13:00 Cerebral Spinal Fluid Lumbar Puncture Fungal Culture - Preliminary NO GROWTH IN 2 WEEKS Resulted 11/05/16 09:15 Sputum Endotracheal Gram Stain - Final Complete 11/05/16 09:15 Sputum Culture - Final Staphylococcus Aureus Escherichia Coli Enterobacter Aerogenes Complete 11/06/16 03:00 Urine Catheterized Urine Urine Culture - Final NO GROWTH IN 48 HOURS. Complete Imaging Last Impressions Chest X-Ray 11/15/16 0600 Signed Impressions: Service Date/Time: Tuesday, November 15, 2016 04:21 - CONCLUSION: 1. Stable basilar airspace disease and probable small effusions. Support apparatus unchanged. Kit Cates MD Brain MRI 11/15/16 0000 Signed Impressions: Service Date/Time: Tuesday, November 15, 2016 15:53 - CONCLUSION: Stable MRI of the brain with subtle increased signal pinto-white matter junction right parietal and occipital regions. Rahat Frey MD FACR Upper Extremity Ultrasound 11/04/16 0000 Signed Impressions: Service Date/Time: Friday, November 04, 2016 18:24 - CONCLUSION: Occlusion of the cephalic vein. The other veins are patent. Everett Block MD Lower Extremity Ultrasound 11/03/16 0000 Signed Impressions: Service Date/Time: Thursday, November 03, 2016 15:19 - CONCLUSION: Negative for deep venous thrombosis. Rahat Frey MD FACR Chest CT 11/01/16 0000 Signed Impressions: Service Date/Time: Tuesday, November 01, 2016 15:59 - CONCLUSION: Minimal nonspecific adenopathy the bibasilar parenchymal changes worse on the left. Rahat Frey MD FACR Abdomen/Pelvis CT 11/01/16 0000 Signed Impressions: Service Date/Time: Tuesday, November 01, 2016 16:04 - CONCLUSION: Nonspecific minimal bowel wall thickening transverse colon. There are no ancillary signs of malignancy. Rahat Frey MD FACR Lumbar Puncture Fluoroscopy 10/26/16 0000 Signed Impressions: Service Date/Time: October 12:24 - CONCLUSION: Uncomplicated fluoroscopically guided cervical puncture. Kranthi Lloyd MD Procedures * Intubation/mechanical ventilation . Assessment and Plan Disease Oriented Problem List: (1) Major neurocognitive disorder (2) Diabetes (3) Status epilepticus (4) Thrombocytopenia (5) Hypoalbuminemia Symptom Scale: (1) Pain 0-10 Scale: Unable to quantify Comment: sources of pain might include the following: Prolonged bedbound status ; Sparrow catheter; significant edema; orotracheal tube; nasogastric tube; vascular access lines. No known pre-hospitalization pain syndromes. . (2) Dyspnea 0-10 Scale: Unable to quantify Comment: Controlled with mechanical ventilation . (3) Encephalopathy 0-10 Scale: 10 Comment: Patient unresponsive . (4) Status epilepticus 0-10 Scale: 10 (Unable to control on multiple anti-seizure meds without heavy sedation) Pertinent Non-Medical Issues Psychosocial: ([place]) spends day at bedside. She has CHF, PE, bad leg. Unable to drive. Two sons locally ([place] is a [employer] office). Spiritual: Restorationist. Appreciates assistant professor of physics visits. Legal: No advance directives Ethical issues impacting care: No ethical issues impacting care at this time. . Important Contacts * Liberty Luong (spouse) [phone]; [phone] . Prognosis Will need to defer to neurology to understand prognosis. Unclear if neurology thinks there may have been permanent brain injury from ongoing status epilepticus? Of the remaining possibilities in the differential, which have potential cures? If he survives to receive treatment, what is the likely post treatment functional/cognitive status? . Code Status: Full Code Plan * Code Status -- FULL CODE * Decision making: The patient is incapacitated to make his own health care decisions, unlikely that he will regain capacity. There is no written designation of health care surrogate. According to [place] statutes, health care proxy decision making falls to the patient's spouse. * Goals of medical treatment: The patient's is still under the impression that there are outstanding diagnostic tests that might provide a clue on how to successfully treat the illness. She tells me that no one has discussed the possibility of a type of permanent brain injury from the ongoing status epilepticus. For these reasons, at this time, she would like full CODE STATUS and ongoing aggressive care including tracheostomy if necessary. She has her discussion about a possible brain biopsy and she would agree to this as a "last resort." * 11/16/16 - Dr. Sadler and Dr. Branham have requested family meeting 11/17/16 8: 30am with palliative care to review treatment options, prognosis and further clarification of treatment goals. (and son) will be here for meeting as requested. Dr. Sadler notified. Per Dr. Jo's note 11/15/16: The patient's would benefit greatly from an open and jeniffer discussion from neurology regarding prognosis. This discussion will be important before she has to make decisions regarding tracheostomy and possible brain biopsy. Important questions include the following: * Does neurology believe the patient may have suffered any type of permanent brain injury from the ongoing status epilepticus? If so how severe might this be and what can be expected should he survive? * The patient's understands that there are still outstanding diagnostic tests. Of the remaining possibilities in the differential, which are treatable ? With treatment, what type of recovery can we expect? * What is the best possible outcome from her brain biopsy? What diagnoses might be made from that test that would be treatable and likely bring the patient back to normal physical and cognitive abilities? It is important that neurology weigh in on overall prognosis so the rest of the medical team can deliver a unified message. Palliative care will be much better equipped to help with decision making with this information. * Though this patient might benefit from a transfer to a tertiary care medical center, because his spouse cannot drive, she is very reluctant to let this happen. She would need to know what specific things that center could offer. She would also need to know that the hospital costs [facility] Symptoms: * Pain: There are no known prehospitalization pain syndromes. Current sources of pain might include prolonged bedbound status; orotracheal intubation; nasogastric intubation; Sparrow catheter; rectal tube; soft wrist restraints; extensive edema. It is unclear to what extent the patient is able to experience pain. Patient currently has orders for fentanyl, and propofol. No further recommendations at this time. * Dyspnea: Dyspnea is well controlled with mechanical ventilation. The patient 's opiates, propofol, and midazolam would also mitigate any dyspnea. No further recommendations at this time . * Edema: Patient has a significant positive fluid balance. Patient is being diuresed currently. No further recommendations at this time. * Encephalopathy: The challenges to find the underlying illness and treat that. There has been an extensive effort to diagnosis problem with no success. I have no recommendations at this time. * Palliative care will continue to follow to assist with symptom management and to further clarify goals of medical treatment as the clinical course evolves. We will also try to support the patient's spouse. . Attestation To help prompt me to consider important information that might be impacting today's encounter and assessment, information from prior notes written by myself or my colleagues may have been "brought forward" into today's note. My signature on this note, however, is an attestation that I personally performed the exam, history, and/or decision-making noted today, and, unless otherwise indicated, the interactions with patient, family, and staff as well as the review of records all occurred today. I also attest that the listed assessment and stated plan reflect my best clinical judgment today based on the combination of historical information, prior notes, and today's exam/ interactions. When time spent is documented, it refers only to time spent today by the signer, or if indicated, combined time spent today by collaborating physician/nurse practitioner. Mari Bobo Nov 16, 2016 11:17
[2016-11-16] MEDS: PANTOPRAZOLE SODIUM 40 MG VIAL IV PUSH SCH (16:18)
--- NOTE | 2016-11-16 16:19 | HHI.PR ---
Subjective Remarks 66 YOWM with AMS, sz, renal insuff Sedated with Versed 10 mg /hr at BS On Fi02 35% Starts seizing on weaning sedation Objective Vital Signs Vital Signs Date Time Temp Pulse Resp B/P (MAP) Pulse Ox O2 Delivery O2 Flow Rate FiO2 11/16/16 12:50 97 35 11/16/16 12:00 35 11/16/16 08:37 99 35 11/16/16 08:00 35 11/16/16 08:00 98.1 11/16/16 06:00 66 11/16/16 04:09 100 35 11/16/16 04:00 98.1 65 18 96/55 (69) 98 11/16/16 04:00 65 11/16/16 04:00 35 11/16/16 02:00 65 11/16/16 00:13 98 35 11/16/16 00:00 98.0 66 18 82/50 (61) 97 11/16/16 00:00 66 11/16/16 00:00 35 11/15/16 22:00 65 11/15/16 22:00 65 18 91/53 (66) 97 11/15/16 20:33 97 35 11/15/16 20:00 66 11/15/16 20:00 97.6 66 18 98/56 (70) 98 11/15/16 20:00 35 11/15/16 18:02 96 35 11/15/16 18:00 63 I/O 11/15/16 11/15/16 11/15/16 11/16/16 11/16/16 11/16/16 07:00 15:00 23:00 07:00 15:00 23:00 Intake Total 1902.0 ml 793 ml 890.5 ml 2023.0 ml Output Total 1300 ml 4300 ml 1600 ml Balance 602.0 ml 793 ml -3409.5 ml 423.0 ml IV Total 748.0 ml 466 ml 890.5 ml 733.0 ml Tube Feeding 554 ml 327 ml 690 ml Other 600 ml 600 ml Output Urine Total 800 ml 3400 ml 800 ml Stool Total 500 ml 900 ml 800 ml Bladder Scan Volume Amount 585 ml Result Diagram: 11/16/1634111/16/16341 Objective Remarks GENERAL: WBWN male, unresponsive SKIN: Warm and dry. HEAD: Normocephalic. EYES: No scleral icterus. No injection or drainage. NECK: Supple, trachea midline. No JVD or lymphadenopathy. CARDIOVASCULAR: Regular rate and rhythm without murmurs, gallops, or rubs. RESPIRATORY: Breath sounds equal bilaterally. No accessory muscle use. GASTROINTESTINAL: Abdomen soft, non-tender, nondistended. MUSCULOSKELETAL: No cyanosis, or edema. BACK: Nontender without obvious deformity. No CVA tenderness. A/P Assessment and Plan AMS SZ disorder Renal insuff ? Cerebritis RF, on vent PLAN Vent Support Anti sz meds per Neuro Monitor renal functions Neuro following pt. DW at BS Sedation with versed PO Vanco Diurease not sure if she wants brain bx Her sons coming tommorrow to meet with palliative care. Stanley Malhotra MD Nov 16, 2016 16:19
[2016-11-16] MEDS ORDERED: CALCIUM GLUCONATE 10% 1 GM/10 ML VIAL IV PRN (16:30)
[2016-11-16] MEDS ORDERED: BISACODYL 10 MG SUPP RECTAL PRN (16:30)
[2016-11-16] MEDS ORDERED: ACETAMINOPHEN 325 MG TAB PO PRN (16:30)
[2016-11-16] MEDS ORDERED: MAGNESIUM SULFATE INJ 4 GM in SODIUM CHLORIDE 0.9% INJ 100 ML IV PRN (16:30)
[2016-11-16] MEDS ORDERED: SODIUM CHLORIDE 0.9% FLUSH 5 ML FLUSH IVF PRN (16:30)
[2016-11-16] MEDS ORDERED: POTASSIUM CHLOR 20 MEQ PREMIX 100 ML IV PRN (16:30)
[2016-11-16] MEDS ORDERED: ACETAMINOPHEN/HYDROcodone 325 MG/10 MG TAB PO PRN ×2 (16:30)
[2016-11-16] MEDS ORDERED: MORPHINE SULFATE 4 MG/ML INJ IV PUSH PRN ×2 (16:30)
[2016-11-16] MEDS: NS + KCL 20 MEQ INJ 1,000 ML IV SCH (18:00)
[2016-11-16] MEDS: levETIRAcetam INJ 500 MG in SODIUM CHLORIDE 0.9% INJ 100 ML IV SCH (19:46)
[2016-11-16] MEDS: ceFAZolin 2 GM PREMIX 50 ML IV SCH (19:46)
--- NOTE | 2016-11-16 20:16 | HHI.PR ---
Review/Management Diagnosis Progressive encephalopathy . No evidence for infectious etiology. Anti- paraneoplastic antibodies so far negative. 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 EEG continues to show bilateral PLEDS, although suppressed on current sedation. Creutzfeld Juanjo is still in differential given clinical progression associated with myoclonus and PLEDS on EEG. Plan I discussed case at length tonight with his and will have conference with family and other physicians on his case in am. I reviewed possibilities with his including continue current care, consider brain biopsy, reconsider referal to [facility] for second opinion. 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 Branham to consider and f/u dilantin/depakote pending Subjective Subjective Comments No acute events reported No clinical seizure or myoclonus noted--on versed and propofol, dph, valproic acid. Active Medications Current Medications Medications (Trade) Dose Ordered Sig/Alyssa Route Start Time Stop Time Status Last Admin (Narcan Inj) 0.4 mg UNSCH PRN IV 10/25/16 00:45 (Ativan Inj) 1 mg Q6H PRN IV 10/26/16 21:30 11/08/16 17:34 (Catapres-Tts 0.1mg Patch.7d) 1 patch Q7D T-DERMAL 10/29/16 16:00 11/12/16 16:43 Miscellaneous Information 1 Q7D T-DERMAL 11/05/16 16:00 11/12/16 16:00 Lacosamide 100 mg/ Sodium Chloride 110 ml @ 110 mls/hr Q6H IV 11/01/16 15:00 11/16/16 13:28 (Peridex 0.12% Liq) 15 ml BID@08,20 MT 11/01/16 20:00 11/16/16 19:47 Midazolam HCl 100 ml @ 2 mls/hr TITRATE PRN IV 11/01/16 12:30 11/16/16 18:16 (Lovenox Inj) 40 mg Q24H SQ 11/02/16 09:00 Future hold 11/16/16 09:37 Potassium Chloride 100 ml @ 50 mls/hr Q2H PRN IV 11/01/16 14:00 Potassium Chloride 100 ml @ 50 mls/hr Q2H PRN IV 11/01/16 14:00 (K-Lyte Cl Eff) 50 meq UNSCH PRN PO 11/01/16 14:00 Potassium Chloride 100 ml @ 25 mls/hr UNSCH PRN IV 11/01/16 14:00 Potassium Chloride 100 ml @ 50 mls/hr Q2H PRN IV 11/01/16 14:00 Magnesium Sulfate 4 gm/Sodium Chloride 100 ml @ 50 mls/hr UNSCH PRN IV 11/01/16 14:00 (Mag-Ox) 800 mg UNSCH PRN PO 11/01/16 14:00 Magnesium Sulfate 2 gm/Sodium Chloride 100 ml @ 50 mls/hr UNSCH PRN IV 11/01/16 14:00 (K-Phos) 2,000 mg Q4H PRN PO 11/01/16 14:00 Sodium Phosphate 30 mmol/Sodium Chloride 250 ml @ 42 mls/hr UNSCH PRN IV 11/01/16 14:00 11/08/16 08:48 (K-Phos) 2,000 mg UNSCH PRN PO/TUBE 11/01/16 14:00 Potassium Phosphate 30 mmol/ Sodium Chloride 260 ml @ 42 mls/hr UNSCH PRN IV 11/01/16 14:00 (Lactulose Liq) 15 ml TID PO 11/05/16 09:00 11/16/16 18:14 Fentanyl Citrate 250 ml @ 5 mls/hr TITRATE PRN IV 11/05/16 22:15 11/07/16 19:41 (Levemir Inj) 14 units Q12HR SQ 11/06/16 09:00 11/16/16 09:00 (D50w (Vial) Inj) 50 ml UNSCH PRN IV 11/07/16 09:30 (Glucagon Inj) 1 mg UNSCH PRN OTHER 11/07/16 09:30 (NovoLIN R SUPPLEMENTAL SCALE) 1 Q6H SQ 11/07/16 11:00 11/14/16 05:00 (SoluMEDROL INJ) 60 mg Q6H IV 11/11/16 02:00 11/16/16 19:47 Propofol 100 ml @ 15.3 mls/hr CONTINUOUS PRN IV 11/11/16 17:15 11/16/16 18:23 (Albuterol Neb) 2.5 mg Q2HR NEB PRN NEB 11/12/16 15:15 (VANCOMYCIN for oral use only) 500 mg Q6H PO 11/13/16 00:00 11/16/16 18:00 Fosphenytoin Sodium 200 mgpe/ Sodium Chloride 54 ml @ 216 mls/hr Q6HR IV 11/14/16 12:00 11/16/16 18:15 Valproate Sodium 750 mg/Sodium Chloride 107.5 ml @ 105 mls/hr Q4HR IV 11/14/16 16:00 11/16/16 19:46 (Free Water) VOLUME: 300 ML Q4HR G-TUBE 11/15/16 16:00 11/16/16 19:46 (Lasix Inj) 40 mg BID@09,18 IV PUSH 11/15/16 14:45 11/16/16 18:15 Potassium Chloride/Sodium Chloride 1,000 ml @ 100 mls/hr Q10H IV 11/16/16 18:00 11/16/16 18:00 (NS Flush) 2 ml UNSCH PRN IVF 11/16/16 16:30 (NS Flush) 2 ml BID IVF 11/16/16 21:00 Cefazolin Sodium/ Dextrose 50 ml @ 100 mls/hr Q8H IV 11/16/16 20:00 11/17/16 12:29 11/16/16 19:46 Levetriacetam 500 mg/Sodium Chloride 105 ml @ 400 mls/hr Q12H IV 11/16/16 20:00 11/16/16 19:46 (Dulcolax Supp) 10 mg DAILY PRN RECTAL 11/16/16 16:30 (Colace) 100 mg BID PO 11/16/16 21:00 (Protonix) 40 mg DAILY PO 11/17/16 09:00 (Protonix Inj) 40 mg DAILY IVP 11/17/16 09:00 (Zofran Inj) 4 mg Q6H PRN IV 11/16/16 16:30 (Calcium Gluconate Inj) 1 gm UNSCH PRN IV 11/16/16 16:30 Potassium Chloride 100 ml @ 50 mls/hr UNSCH PRN IV 11/16/16 16:30 Magnesium Sulfate 4 gm/Sodium Chloride 108 ml @ 108 mls/hr UNSCH PRN IV 11/16/16 16:30 (Wilson 10-325 Mg) 1 tab Q4H PRN PO 11/16/16 16:30 (Wilson 10-325 Mg) 2 tab Q4H PRN PO 11/16/16 16:30 (Morphine Inj) 2 mg Q2H PRN IV PUSH 11/16/16 16:30 (Morphine Inj) 4 mg Q2H PRN IV PUSH 11/16/16 16:30 (Tylenol) 650 mg Q4H PRN PO 11/16/16 16:30 Allergies Allergies Coded Allergies penicillin G (Unverified Allergy, Severe, 10/17/16) Review of Systems All other ROS: ROS reviewed as documented in chart Exam I&O / VS 11/16/16 11/16/16 11/17/16 15:00 23:00 07:00 Intake Total 1301 ml Output Total 1450 ml Balance -149 ml Tube Feeding 701 ml Other 600 ml Output Urine Total 1250 ml Stool Total 200 ml Bladder Scan Volume Amount 585 ml Vital Signs Date Time Temp Pulse Resp B/P (MAP) Pulse Ox O2 Delivery O2 Flow Rate FiO2 11/16/16 19:53 100 35 11/16/16 18:30 61 11/16/16 18:15 59 11/16/16 18:00 62 11/16/16 17:05 100 35 11/16/16 17:05 99 Ventilator 35 11/16/16 17:00 62 17 84/53 (63) 99 11/16/16 16:59 62 17 82/52 (62) 99 11/16/16 16:30 63 19 87/50 (62) 99 11/16/16 16:30 63 11/16/16 16:00 64 17 103/55 (71) 97 11/16/16 16:00 64 11/16/16 16:00 35 11/16/16 15:30 63 11/16/16 15:30 63 11 86/54 (65) 97 11/16/16 15:00 61 11/16/16 15:00 61 17 86/54 (65) 98 11/16/16 14:30 63 11/16/16 14:30 63 23 91/55 (67) 98 11/16/16 14:12 64 11/16/16 14:12 64 10 85/52 (63) 91 11/16/16 14:00 63 18 83/49 (60) 98 11/16/16 14:00 63 11/16/16 13:30 61 11/16/16 13:30 61 17 94/53 (67) 98 11/16/16 13:00 61 18 84/53 (63) 98 11/16/16 13:00 61 11/16/16 12:50 97 35 11/16/16 12:30 62 11/16/16 12:30 62 20 83/54 (64) 95 11/16/16 12:00 63 20 83/53 (63) 95 11/16/16 12:00 63 11/16/16 12:00 35 11/16/16 11:30 62 11/16/16 11:00 62 11/16/16 10:30 62 11/16/16 10:00 63 11/16/16 09:30 61 11/16/16 09:00 62 11/16/16 08:37 99 35 11/16/16 08:35 63 11/16/16 08:30 64 11/16/16 08:00 35 11/16/16 08:00 98.1 11/16/16 08:00 62 11/16/16 06:00 66 11/16/16 04:09 100 35 11/16/16 04:00 98.1 65 18 96/55 (69) 98 11/16/16 04:00 65 11/16/16 04:00 35 11/16/16 02:00 65 11/16/16 00:13 98 35 11/16/16 00:00 98.0 66 18 82/50 (61) 97 11/16/16 00:00 66 11/16/16 00:00 35 11/15/16 22:00 65 11/15/16 22:00 65 18 91/53 (66) 97 11/15/16 20:33 97 35 Exam Comments Intubated and on versed.propofol --nonresponsive CN--PERRL, MOTOR--no focal deficit.No clinical sz activity Objective Micro and Labs Laboratory Tests Test 11/16/16 03:42 White Blood Count 12.9 Red Blood Count 2.85 Hemoglobin 8.9 Hematocrit 27.4 Mean Corpuscular Volume 96.1 Mean Corpuscular Hemoglobin 31.2 Mean Corpuscular Hemoglobin Concent 32.4 Red Cell Distribution Width 14.4 Platelet Count 118 Mean Platelet Volume 10.5 Blood Urea Nitrogen 33 Creatinine 0.76 Random Glucose 89 Total Protein 6.1 Calcium Level 7.4 Sodium Level 149 Potassium Level 4.1 Chloride Level 111 Carbon Dioxide Level 31.0 Anion Gap 7 Estimat Glomerular Filtration Rate 102 Protein Corrected Calcium 7.9 Date/Time Source Procedure Growth Status 11/11/16 01:37 Blood Peripheral Aerobic Blood Culture - Final NO GROWTH IN 5 DAYS Complete 11/11/16 01:37 Blood Peripheral Anaerobic Blood Culture - Final NO GROWTH IN 5 DAYS Complete 10/26/16 13:00 Cerebral Spinal Fluid Lumbar Puncture Fungal Smear - Final NO FUNGAL ELEMENTS SEEN. Resulted 10/26/16 13:00 Cerebral Spinal Fluid Lumbar Puncture Fungal Culture - Preliminary NO GROWTH IN 3 WEEKS Resulted 11/05/16 09:15 Sputum Endotracheal Gram Stain - Final Complete 11/05/16 09:15 Sputum Culture - Final Staphylococcus Aureus Escherichia Coli Enterobacter Aerogenes Complete 11/06/16 03:00 Urine Catheterized Urine Urine Culture - Final NO GROWTH IN 48 HOURS. Complete Miguelito Branham PhD Nov 16, 2016 20:16
[2016-11-16] MEDS: SODIUM CHLORIDE 0.9% FLUSH 5 ML FLUSH IVF SCH (21:00)
[2016-11-16] MEDS: DOCUSATE SODIUM 100 MG CAP PO SCH (21:51)
[2016-11-17] VITALS (17 sets, daily range): BP systolic 90–112; BP diastolic 56–61; PULSE 62–69; RESP 17–18; TEMP 97.7–99.3; O2SAT 96–100
[2016-11-17] MEDS: FREE WATER G-TUBE SCH ×6 (04:00→19:53)
[2016-11-17] MEDS: PROPOFOL 1000 MG/100 ML INJ 100 ML IV PRN ×3 (04:02→19:53)
[2016-11-17] MEDS: VANCOMYCIN 500 MG VIAL (FOR ORAL USE ONLY) PO SCH ×4 (04:02→17:51)
[2016-11-17] MEDS: methylPREDNISolone SOD SUCC 125 MG/2 ML VIAL IV SCH ×4 (04:02→19:54)
[2016-11-17] MEDS: FOSPHENYTOIN INJ 200 MGPE in SODIUM CHLORIDE 0.9% INJ 50 ML IV SCH ×4 (04:02→17:50)
[2016-11-17] MEDS: LACOSAMIDE INJ 100 MG in SODIUM CHLORIDE 0.9% INJ 100 ML IV SCH ×4 (04:02→19:54)
[2016-11-17] MEDS: NS + KCL 20 MEQ INJ 1,000 ML IV SCH ×2 (04:03→12:17)
[2016-11-17] MEDS: VALPROATE INJ 750 MG in SODIUM CHLORIDE 0.9% INJ 100 ML IV SCH ×6 (04:03→19:53)
[2016-11-17 04:37] LABS: HEMATOCRIT 29.6 % (39.0-51.0); MEAN CELL VOLUME 96.4 FL (80.0-100.0); MEAN CORPUSCULAR HEMOGLOBIN 31.4 PG (27.0-34.0); MEAN CORPUSCULAR HGB CONC 32.6 % (32.0-36.0); PLATELET COUNT 131 TH/MM3 (150-450); RED BLOOD COUNT 3.07 MIL/MM3 (4.50-5.90); RED CELL DISTRIBUTION WIDTH 15.1 % (11.6-17.2); REVIEW FLAG FINAL; WHITE BLOOD COUNT 12.9 TH/MM3 (4.0-11.0)
[2016-11-17] MEDS: ceFAZolin 2 GM PREMIX 50 ML IV SCH ×2 (04:43→12:18)
[2016-11-17] MEDS: INSULIN NovoLIN REGULAR SUPPLEMENTAL SCALE SQ SCH ×4 (04:43→23:00)
[2016-11-17 05:06] LABS: BICARBONATE 28.6 MEQ/L (21.0-32.0); POTASSIUM 4.6 MEQ/L (3.5-5.1)
[2016-11-17 05:41] LABS: CALCIUM-PROTEIN CORRECTED 7.9 MG/DL (8.5-10.1)
[2016-11-17] MEDS: levETIRAcetam INJ 500 MG in SODIUM CHLORIDE 0.9% INJ 100 ML IV SCH ×2 (07:42→19:54)
[2016-11-17] MEDS: FUROSEMIDE 40 MG/4 ML VIAL IV PUSH SCH ×2 (07:43→17:50)
[2016-11-17] MEDS: ENOXAPARIN SODIUM 40 MG/0.4 ML SYRINGE SQ SCH (07:43)
[2016-11-17] MEDS: PANTOPRAZOLE SODIUM 40 MG VIAL IVP SCH (07:43)
[2016-11-17] MEDS: LACTULOSE SYRUP 20 GM/30 ML CUP PO SCH ×3 (07:43→17:50)
[2016-11-17] MEDS: INSULIN DETEMIR 100 UNITS/ML VIAL SQ SCH ×2 (07:51→19:55)
[2016-11-17] MEDS: DOCUSATE SODIUM 100 MG CAP PO SCH ×2 (08:04→19:55)
[2016-11-17] MEDS: SODIUM CHLORIDE 0.9% FLUSH 5 ML FLUSH IVF SCH ×2 (08:04→19:54)
[2016-11-17] MEDS: PANTOPRAZOLE SOD 40 MG DELAYED RELEASE TAB PO SCH (08:05)
[2016-11-17] MEDS: CHLORHEXIDINE 0.12% (ORAL KIT) 15 ML CUP MT SCH ×2 (08:57→19:54)
--- NOTE | 2016-11-17 10:03 | HHI.HCPN ---
Reason for visit a. To assist with evaluation and management of symptoms including: pain; dyspnea; encephalopathy; edema b. To assist medical decision maker(s) with: better understanding of current medical conditions; weighing benefits/burdens of medical treatment options; making medical treatment decisions. . Subjective/Interval History Patient seen in ICU. Discussed with nurse, Deepa, Dr. Sadler and Dr. Branham. Patient remains sedated on mech vent. Afebrile. WBC 12.9, hemoglobin 9.6, hematocrit 29.6, platelets 131. Total protein 5.9. No significant clinical change or improvement. Overall poor prognosis. . Family/friend interactions Family meeting: In attendance: Mrs. Luong, son, Dr. Branham, Dr. Sadler and me. Items discussed: * Review of test results to date * Medical update * Options including continued aggressive care that would include brain biopsy, trach and PEG vs. transition to comfort measures with withdrawal of life support * Poor prognosis * Questions answered In summary, family needs more time to consider options. Son verbalizes he knows the patient would not want them to proceed with biopsy and he would not want to live like this. Family is appropriately tearful. Family was advised we would need a decision by Sunday11/20/16. Offered to speak with patient's other son if he has additional questions. . Advance Directives Living Will: Never completed Health Care Surrogate: Never completed Durable Power of [place] Strip Inspector: Never completed Advance Directive Specifics Date completed: Patient has never completed advance directives . Health Care Surrogate(s): There is no written designation of health care surrogate. . Documented care wishes: There is no written documentation of health care goals or preferences . Significant change in goals: FULL CODE. Family considering continued aggressive care vs. transition to comfort. . Objective Vital Signs Date Time Temp Pulse Resp B/P (MAP) Pulse Ox O2 Delivery O2 Flow Rate FiO2 11/17/16 07:33 98 35 11/17/16 06:00 65 11/17/16 06:00 65 18 107/59 (75) 96 11/17/16 04:26 100 35 11/17/16 04:00 35 11/17/16 04:00 63 11/17/16 04:00 97.8 63 18 90/56 (67) 98 11/17/16 02:00 65 11/17/16 00:00 100 35 9/15/17 00:00 97.7 62 17 94/57 (69) 100 15/17 00:00 62 15/17 00:00 35 14/17 22:00 63 14/17 20:00 98.0 61 18 92/54 (67) 100 14/17 20:00 35 14/17 20:00 61 14/17 19:53 100 35 14/17 18:30 61 14/17 18:15 59 14/17 18:00 62 14/17 17:05 100 35 14/17 17:05 99 Ventilator 35 14/17 17:00 62 17 84/53 (63) 99 14/17 16:59 62 17 82/52 (62) 99 14/17 16:30 63 19 87/50 (62) 99 14/17 16:30 63 14/17 16:00 64 17 103/55 (71) 97 17 16:00 64 17 16:00 35 11/16/17 15:30 63 14/17 15:30 63 11 86/54 (65) 97 14/17 15:00 61 14/17 15:00 61 17 86/54 (65) 98 14/17 14:30 63 14/17 14:30 63 23 91/55 (67) 98 14/17 14:12 64 14/17 14:12 64 10 85/52 (63) 91 17 14:00 63 18 83/49 (60) 98 14/17 14:00 63 14/17 13:30 61 14/17 13:30 61 17 94/53 (67) 98 14/17 13:00 61 18 84/53 (63) 98 14/17 13:00 61 14/17 12:50 97 35 14/17 12:30 62 /14/17 12:30 62 20 83/54 (64) 95 14/17 12:00 63 20 83/53 (63) 95 14/17 12:00 63 14/17 12:00 35 14/17 11:30 62 9/14/17 11:00 62 11/16/16 10:30 62 11/16/16 10:00 63 Intake & Output 11/17/16 11/17/16 07:00 19:00 Intake Total 2822 ml Output Total 800 ml Balance 2022 ml IV Total 1633 ml Tube Feeding 589 ml Other 600 ml Output Urine Total 500 ml Stool Total 300 ml Physical Exam CONSTITUTIONAL/GENERAL: This is an adequately nourished patient with generalized edema, sedated on mech vent. TUBES/LINES/DRAINS: Peripheral IV; ETT, nasogastric tube; sparrow catheter; soft wrist restraints; rectal tube; SCDs SKIN: No jaundice. EYES: Eyes closed. CARDIOVASCULAR: Regular rate and rhythm on monitor. RESPIRATORY/CHEST: Symmetric, unlabored respirations on vent. GASTROINTESTINAL: Abdomen soft, nondistended. GENITOURINARY: Without palpable bladder distension. Sparrow catheter in place. Scrotal and penile edema is present. MUSCULOSKELETAL: Extremities without clubbing, cyanosis. Significant bilateral upper extremity edema, weeping edema. NEUROLOGICAL: Sedated, unresponsive. PSYCHIATRIC: Unable to assess due to level of responsiveness. . Diagnostic Tests Laboratory Laboratory Tests Test 11/15/16 03:43 11/15/16 05:15 11/16/16 03:42 11/17/16 04:15 Blood Gas Puncture Site LT BRACHIAL Blood Gas Patient Temperature 98.6 Blood Gas HCO3 26 mmol/L (22-26) Blood Gas Base Excess 2.6 mmol/L (-2-2) Blood Gas Oxygen Saturation 94 % (90-100) Arterial Blood pH 7.45 (7.380-7.420) Arterial Blood Partial Pressure CO2 39 mmHg (38-42) Arterial Blood Partial Pressure O2 82 mmHg (61-120) Arterial Blood Oxygen Content 11.2 Vol % (12.0-20.0) Arterial Blood Carboxyhemoglobin 1.9 % (0-4) Arterial Blood Methemoglobin 1.0 % (0-2) Blood Gas Hemoglobin 8.4 G/DL (12.0-16.0) Oxygen Delivery Device VENTILATOR Blood Gas Ventilator Setting COMMENT Blood Gas Inspired Oxygen 35 % White Blood Count 10.4 TH/MM3 (4.0-11.0) 12.9 TH/MM3 (4.0-11.0) 12.9 TH/MM3 (4.0-11.0) Red Blood Count 2.85 MIL/MM3 (4.50-5.90) 2.85 MIL/MM3 (4.50-5.90) 3.07 MIL/MM3 (4.50-5.90) Hemoglobin 8.8 GM/DL (13.0-17.0) 8.9 GM/DL (13.0-17.0) 9.6 GM/DL (13.0-17.0) Hematocrit 27.0 % (39.0-51.0) 27.4 % (39.0-51.0) 29.6 % (39.0-51.0) Mean Corpuscular Volume 94.6 FL (80.0-100.0) 96.1 FL (80.0-100.0) 96.4 FL (80.0-100.0) Mean Corpuscular Hemoglobin 31.0 PG (27.0-34.0) 31.2 PG (27.0-34.0) 31.4 PG (27.0-34.0) Mean Corpuscular Hemoglobin Concent 32.8 % (32.0-36.0) 32.4 % (32.0-36.0) 32.6 % (32.0-36.0) Red Cell Distribution Width 14.3 % (11.6-17.2) 14.4 % (11.6-17.2) 15.1 % (11.6-17.2) Platelet Count 135 TH/MM3 (150-450) 118 TH/MM3 (150-450) 131 TH/MM3 (150-450) Mean Platelet Volume 10.2 FL (7.0-11.0) 10.5 FL (7.0-11.0) 9.8 FL (7.0-11.0) Blood Urea Nitrogen 32 MG/DL (7-18) 33 MG/DL (7-18) 42 MG/DL (7-18) Creatinine 0.69 MG/DL (0.60-1.30) 0.76 MG/DL (0.60-1.30) 0.86 MG/DL (0.60-1.30) Random Glucose 127 MG/DL (74-106) 89 MG/DL (74-106) 124 MG/DL (74-106) Calcium Level 7.5 MG/DL (8.5-10.1) 7.4 MG/DL (8.5-10.1) 7.3 MG/DL (8.5-10.1) Phosphorus Level 3.2 MG/DL (2.5-4.9) Magnesium Level 2.3 MG/DL (1.5-2.5) Sodium Level 148 MEQ/L (136-145) 149 MEQ/L (136-145) 147 MEQ/L (136-145) Potassium Level 4.3 MEQ/L (3.5-5.1) 4.1 MEQ/L (3.5-5.1) 4.6 MEQ/L (3.5-5.1) Chloride Level 113 MEQ/L (98-107) 111 MEQ/L (98-107) 111 MEQ/L (98-107) Carbon Dioxide Level 28.8 MEQ/L (21.0-32.0) 31.0 MEQ/L (21.0-32.0) 28.6 MEQ/L (21.0-32.0) Anion Gap 6 MEQ/L (5-15) 7 MEQ/L (5-15) 7 MEQ/L (5-15) Estimat Glomerular Filtration Rate 114 ML/MIN (>89) 102 ML/MIN (>89) 88 ML/MIN (>89) Phenytoin (Dilantin) Level 9.2 MCG/ML (10.0-20.0) Valproic Acid (Depakene) Level 54 MCG/ML (50-100) Total Protein 6.1 GM/DL (6.4-8.2) 5.9 GM/DL (6.4-8.2) Protein Corrected Calcium 7.9 MG/DL (8.5-10.1) 7.9 MG/DL (8.5-10.1) Result Diagram: 11/17/16 0415 11/17/16 0415 Microbiology Microbiology Date/Time Source Procedure Growth Status 11/11/16 01:37 Blood Peripheral Aerobic Blood Culture - Final NO GROWTH IN 5 DAYS Complete 11/11/16 01:37 Blood Peripheral Anaerobic Blood Culture - Final NO GROWTH IN 5 DAYS Complete 10/26/16 13:00 Cerebral Spinal Fluid Lumbar Puncture Fungal Smear - Final NO FUNGAL ELEMENTS SEEN. Resulted 10/26/16 13:00 Cerebral Spinal Fluid Lumbar Puncture Fungal Culture - Preliminary NO GROWTH IN 3 WEEKS Resulted 11/05/16 09:15 Sputum Endotracheal Gram Stain - Final Complete 11/05/16 09:15 Sputum Culture - Final Staphylococcus Aureus Escherichia Coli Enterobacter Aerogenes Complete 11/06/16 03:00 Urine Catheterized Urine Urine Culture - Final NO GROWTH IN 48 HOURS. Complete Imaging Last Impressions Chest X-Ray 11/15/16 0600 Signed Impressions: Service Date/Time: Tuesday, November 15, 2016 04:21 - CONCLUSION: 1. Stable basilar airspace disease and probable small effusions. Support apparatus unchanged. Kit Cates MD Brain MRI 11/15/16 0000 Signed Impressions: Service Date/Time: Tuesday, November 15, 2016 15:53 - CONCLUSION: Stable MRI of the brain with subtle increased signal pinto-white matter junction right parietal and occipital regions. Rahat Frey MD FACR Upper Extremity Ultrasound 11/04/16 0000 Signed Impressions: Service Date/Time: Friday, November 04, 2016 18:24 - CONCLUSION: Occlusion of the cephalic vein. The other veins are patent. Everett Block MD Lower Extremity Ultrasound 11/03/16 0000 Signed Impressions: Service Date/Time: Thursday, November 03, 2016 15:19 - CONCLUSION: Negative for deep venous thrombosis. Rahat Frey MD FACR Chest CT 11/01/16 0000 Signed Impressions: Service Date/Time: Tuesday, November 01, 2016 15:59 - CONCLUSION: Minimal nonspecific adenopathy the bibasilar parenchymal changes worse on the left. Rahat Frey MD FACR Abdomen/Pelvis CT 11/01/16 0000 Signed Impressions: Service Date/Time: Tuesday, November 01, 2016 16:04 - CONCLUSION: Nonspecific minimal bowel wall thickening transverse colon. There are no ancillary signs of malignancy. Rahat Frey MD FACR Lumbar Puncture Fluoroscopy 10/26/16 0000 Signed Impressions: Service Date/Time: October 12:24 - CONCLUSION: Uncomplicated fluoroscopically guided cervical puncture. Kranthi Lloyd MD Procedures * Intubation/mechanical ventilation . Assessment and Plan Disease Oriented Problem List: (1) Major neurocognitive disorder (2) Diabetes (3) Status epilepticus (4) Thrombocytopenia (5) Hypoalbuminemia Symptom Scale: (1) Pain 0-10 Scale: Unable to quantify Comment: sources of pain might include the following: Prolonged bedbound status ; Sparrow catheter; significant edema; orotracheal tube; nasogastric tube; vascular access lines. No known pre-hospitalization pain syndromes. . (2) Dyspnea 0-10 Scale: Unable to quantify Comment: Controlled with mechanical ventilation . (3) Encephalopathy 0-10 Scale: 10 Comment: Patient unresponsive . (4) Status epilepticus 0-10 Scale: Unable to quantify Pertinent Non-Medical Issues Psychosocial: ([place]) spends day at bedside. She has CHF, PE, bad leg. Unable to drive. Two sons locally ([place] is a [employer] office). Spiritual: Mandaeism. Appreciates accessioner visits. Legal: No advance directives Ethical issues impacting care: No ethical issues impacting care at this time. . Important Contacts * Liberty Luong (spouse) [phone]; [phone] . Prognosis Per neurology and engineering aid, appears patient has Creutzfedlt- Ministerio disease as infectious, viral and autoimmune disease has been ruled out by process of elimination. Overall poor prognosis. . Code Status: Full Code Plan * Code Status -- FULL CODE - Will need to readdress Code status, next visit, though I anticipate transition to comfort in the coming days. * Decision making: The patient is incapacitated to make his own health care decisions, unlikely that he will regain capacity. There is no written designation of health care surrogate. According to [place] statutes, health care proxy decision making falls to the patient's spouse. * Goals of medical treatment: Family is considering options of continued aggressive care (including trach/PEG, brain biopsy) vs transition to comfort measures, anticipate decision Sunday11/20/16. * 4pm: Spoke with at bedside, she is asking questions about , brain biopsy, comfort measures and what happens after patient dies. Spoke with vice president medical affairs who indicates this would not be [place] case and they would not do autopsy. Advised autopsy could be pursued by family through [facility] @ [phone], average cost $[phone], uncertain if they would just perform brain biopsy. Called [facility] that reports Creutzfeldt-Juanjo disease being reprovable varies by state. Called [facility] ([phone]) who tells me CJD is reportable in [place], they took patient information understanding this is likely diagnosis. Number for [facility] ([phone]) given should we have additional questions or needs. She also indicates family may be able to get assistance with brain biopsy after through [facility] [phone]. Information provided to Mrs. Luong, she is very appreciative. She verbalizes financial concerns about expense. Provided information regarding Indigent Burial/Cremation services should she need assistance, as well as a home list. Also provided additional anticipatory guidance regarding withdrawal of life support as is asking additional questions about what happens if they elect comfort focused care. * Palliative care will continue to follow to assist with symptom management and to further clarify goals of medical treatment as the clinical course evolves. We will also try to support the patient's spouse. Symptoms: * Pain: There are no known prehospitalization pain syndromes. Current sources of pain might include prolonged bedbound status; orotracheal intubation; nasogastric intubation; Sparrow catheter; rectal tube; soft wrist restraints; extensive edema. It is unclear to what extent the patient is able to experience pain. Patient currently has orders for fentanyl, and propofol. No further recommendations at this time. * Dyspnea: Dyspnea is well controlled with mechanical ventilation. The patient 's opiates, propofol, and midazolam would also mitigate any dyspnea. No further recommendations at this time . * Edema: Patient has a significant positive fluid balance. Patient is being diuresed currently. No further recommendations at this time. * Encephalopathy: Patient with likely Creutzfeldt- Ministerio disease as infectious, viral and autoimmune disease has been ruled out by process of elimination. . Attestation To help prompt me to consider important information that might be impacting today's encounter and assessment, information from prior notes written by myself or my colleagues may have been "brought forward" into today's note. My signature on this note, however, is an attestation that I personally performed the exam, history, and/or decision-making noted today, and, unless otherwise indicated, the interactions with patient, family, and staff as well as the review of records all occurred today. I also attest that the listed assessment and stated plan reflect my best clinical judgment today based on the combination of historical information, prior notes, and today's exam/ interactions. When time spent is documented, it refers only to time spent today by the signer, or if indicated, combined time spent today by collaborating physician/nurse practitioner. Mari Bobo Nov 17, 2016 10:03
[2016-11-17] MEDS: MIDAZOLAM 100 MG/NS 100 ML DRIP Premix IV PRN (12:45)
--- NOTE | 2016-11-17 18:12 | HHI.CCPN ---
Subjective Remarks/Hospital Course This is a 66-year-old man with history of diabetes, hypertension, dyslipidemia who about a month ago started having difficulty with balance with shuffling type of gait and resting tremor along with recent cognitive decline as well. His initial admission was on 10/06/16, as initial workup was negative patient was admitted to psych unit on 10/06/16 for suicidal ideations and altered mental status. He was evaluated by neurology Dr Branham, possibility of Parkinsonian symptoms and vitamin B 12 deficiency was entertained, but there was no improvement with treatment. He was re admitted to hospitalist service with worsening mental status on 10/25/16. Per Dr. Branham, MRI showed possible cerebritis. Differential included Creutzfeldt-Ministerio. But 14-3-3 protein for Creutzfeldt-Ministerio was negative. Currently on acyclovir for possibility of viral cerebritis. EEG done 10/24/16 showed generalized epileptiform activity. Patient was placed on Cerebyx, Keppra. Keppra was DCd due to rash and currently patient is on Cerebyx and Vimpat. Repeat EEGs from 10/31/16 and today shows continued seizure activity/subclinical seizures. Patient continues to be encephalopathic not responding. EEG today shows continued seizure activity indicating status epilepticus. Critical-care medicine was consulted by Dr. Branham today for continuous Versed infusion after intubation I evaluated the patient in ICU. He barely opens his eyes to painful stimuli localizes with right upper extremity withdrawal of any other extremities. Discussed with Dr. Branham multiple times. In his opinion, this appears to be a autoimmune encephalitis less likely to be infectious. Anti-NMDA receptor antibody ordered. Per Dr. Branham D/D possibly paraneoplastic, vasculitic or NMDA- receptor encephalitis. Currently patient is on IV Solu-Medrol and IVIG had been ordered by Dr. Branham. Initiate continuous EEG monitoring. TTP/HUS unlikely, but patient has E Coli UTI, I have asked for peripheral smear review by pathologist 11/02: remains encephalopathic, but also very deeply sedated on versed drip. continuous EEG with intermittent sharp spikes that correspond with rhythmic neck movement. neurology adding additional anti-epileptics. peripheral smear without Schistocytes. currently receiving IVIG for possible au immune encephalopathy. 11/03 Patient remains sedated and intubated. Afebrile. 11/04 Patient remains intubated and sedated with Versed 10mg/hr. Tmax 100.6 11/05 No events overnight. On Versed drip for sedation, no seizures overnight. Patient is on continuous EEG monitoring. T: 101.0 last night. 11/06 Patient is sedated with Versed and Fentanyl. No seizures overnight. Afebrile. 11/07 Patient remains sedated and intubated. Afebrile. No recurrent seizures overnight. 11/08 TMax 99.6. The patient was noted to be on sedation vacation, EEG was being performed patient was noted to have subclinical seizures persistent. The patient was immediately bolused with 5 mg IV.Versed infusion continued at 8 mg/ h noted cessation of subclinical seizures and the patient continues to be monitored via EEG. Noted phenytoin and valproic acid levels were noted subtherapeutic today. 11/09 TMax 100.7. No further sedation holiday per Neurology due to ongoing subclinical seizure activity.the patient continues on AED's. AED levels pending in am.The patient remained on continuous EEG monitoring throughout the night with cessation of subclinical seizure activity. 11/10: No acute events overnight. EEG performed today. Propofol infusion added to medication regimen.\ 11/12: Maximum 101.9. Currently afebrile. Tolerating tube feeding. Positive BM. 11/13: Moved from room 526 to room 500 due to leaking window. Early afebrile. Diagnosed with C. difficile EPID O27 negative. Started on oral vancomycin per infectious disease. Otherwise no changes overnight. 11/14: The patient continues on deep sedation secondary to subclinical seizure activity, per Dr. Branham recommendation. Continues on Versed 10 mg, propofol 25 mcgs. Discussed extensively possibility of tracheostomy with today. Further discussion planned tomorrow, after results from EEG and repeat MRI are obtained, to assess for continued subclinical seizure activity. 11/15: no improvements in mental status. will get palliative involved. poor prognosis. still seizes with any lightening of deep sedation. 11/16: No changes or improvements. MRI with persistence of subtle changes in the temporal and occipital regions. Highest on the differential is spongiform encephalitis at this point per neurology. Neuro considering possible brain biopsy. Palliative involved. Subjective 11/17: no improvements. long family discussion today. family will discuss the options of aggressive care with trach/peg and placement vs. palliation and comfort measures. Objective Vital Signs Date Time Temp Pulse Resp B/P (MAP) Pulse Ox O2 Delivery O2 Flow Rate FiO2 11/17/16 17:27 98 35 11/17/16 16:00 62 11/17/16 16:00 99.3 11/17/16 06:00 18 107/59 (75) 11/16/16 17:05 Ventilator Intake and Output 11/17/16 11/17/16 11/18/16 08:00 16:00 00:00 Intake Total 2772 ml Output Total 800 ml Balance 1972 ml Result Diagram: 11/17/16 0415 11/17/16 0415 Imaging Last Impressions Chest X-Ray 11/14/16 0600 Signed Impressions: Service Date/Time: Monday, November 14, 2016 04:59 - CONCLUSION: 1. Basilar airspace disease similar to November 12. Endotracheal tube and nasogastric tube in satisfactory position. Kit Cates MD Brain MRI 11/07/16 0000 Signed Impressions: Service Date/Time: Monday, November 07, 2016 11:17 - CONCLUSION: 1. Continued subtle signal abnormality involving the pinto-white junction in the right occipital and right parietal regions. There has been no significant change when compared to the prior exam. Kranthi Lloyd MD Upper Extremity Ultrasound 11/04/16 0000 Signed Impressions: Service Date/Time: Friday, November 04, 2016 18:24 - CONCLUSION: Occlusion of the cephalic vein. The other veins are patent. Everett Block MD Lower Extremity Ultrasound 11/03/16 0000 Signed Impressions: Service Date/Time: Thursday, November 03, 2016 15:19 - CONCLUSION: Negative for deep venous thrombosis. Rahat Frey MD FACR Chest CT 11/01/16 0000 Signed Impressions: Service Date/Time: Tuesday, November 01, 2016 15:59 - CONCLUSION: Minimal nonspecific adenopathy the bibasilar parenchymal changes worse on the left. Rahat Frey MD FACR Abdomen/Pelvis CT 11/01/16 0000 Signed Impressions: Service Date/Time: Tuesday, November 01, 2016 16:04 - CONCLUSION: Nonspecific minimal bowel wall thickening transverse colon. There are no ancillary signs of malignancy. Rahat Frey MD FACR Lumbar Puncture Fluoroscopy 10/26/16 0000 Signed Impressions: Service Date/Time: October 12:24 - CONCLUSION: Uncomplicated fluoroscopically guided cervical puncture. Kranthi Llody MD Last Impressions Chest X-Ray 11/12/16 0600 Signed Impressions: Service Date/Time: Saturday, November 12, 2016 03:47 - CONCLUSION: Bilateral perihilar infiltrates and right small to moderate pleural effusion, all slightly worse in the interim. Madhav Oneil MD Brain MRI 11/07/16 0000 Signed Impressions: Service Date/Time: Monday, November 07, 2016 11:17 - CONCLUSION: 1. Continued subtle signal abnormality involving the pinto-white junction in the right occipital and right parietal regions. There has been no significant change when compared to the prior exam. Kranthi Lloyd MD Upper Extremity Ultrasound 11/04/16 0000 Signed Impressions: Service Date/Time: Friday, November 04, 2016 18:24 - CONCLUSION: Occlusion of the cephalic vein. The other veins are patent. Everett Block MD Lower Extremity Ultrasound 11/03/16 0000 Signed Impressions: Service Date/Time: Thursday, November 03, 2016 15:19 - CONCLUSION: Negative for deep venous thrombosis. Rahat Frey MD FACR Chest CT 11/01/16 0000 Signed Impressions: Service Date/Time: Tuesday, November 01, 2016 15:59 - CONCLUSION: Minimal nonspecific adenopathy the bibasilar parenchymal changes worse on the left. Rahat Frey MD FACR Abdomen/Pelvis CT 11/01/16 0000 Signed Impressions: Service Date/Time: Tuesday, November 01, 2016 16:04 - CONCLUSION: Nonspecific minimal bowel wall thickening transverse colon. There are no ancillary signs of malignancy. Rahat Frey MD FACR Lumbar Puncture Fluoroscopy 10/26/16 0000 Signed Impressions: Service Date/Time: October 12:24 - CONCLUSION: Uncomplicated fluoroscopically guided cervical puncture. Kranthi Lloyd MD Objective Remarks GENERAL: 66-year-old male, lying in bed, intubated, and sedated. SKIN: Warm and dry. No lesions noted. HEENT: Normocephalic. Pupils equal 2 mm reactive. orotracheally intubated CARDIOVASCULAR: RRR. Telemetry sinus rhythm RESPIRATORY:. Symmetrical excursion. intubated. GASTROINTESTINAL: Abdomen soft, non-tender, nondistended MUSCULOSKELETAL: No obvious deformities. No significant peripheral edema. NEUROLOGICAL: GCS 3T.Deeply sedated on multiple sedatives. Pupils 5 mm bilaterally and reactive. A/P Assessment and Plan Assessment: 66yM with acute encephalopathy of unknown etiology. All tests negative at this point. Prognosis would be poor. palliative on board. If goals of care remain aggressive, then we need to pursue trach and peg. Will discuss today with multidisciplinary team conference and family conference our plan of care from this point. CJD would have a terminal prognosis, as would likely any diagnosis at this point going forward. Family does not want to pursue brain biopsy, but will decide on aggressive measures vs. palliative withdraw. 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 Goal of RASS -4 -10/31 MRI brain: Subtle signal abdomen only at the pinto-white junction in the right hemisphere as above. The findings may reflect encephalitis or cerebritis -11/07 repeat MRI brain continued subtle signal abnormality involving pinto/white matter junction in right occiput total and right parietal regions. No change from previous MRI -11/10 Continuous EEG, noted subclinical appears worse than 11/08 EEG - Continue IV fosphenytoin 200mg Q6, lacosamide 100 mg every 6 hours valproic acid 600 mill grams IV every 4 hours Recheck levels 11/14 - Workup negative for infectious encephalitis - Ongoing workup for autoimmune encephalitis, anti-NMDA receptor antibody negative. - all paraneoplastic antibodies and anti nmda antibody negative. - Repeat MRI unchanged. - Continue IV Solu-Medrol 60 mg IV Q6 per Dr. Branham/neurology - TTP/HUS unlikely given lack of schistocytes on peripheral smear 11/01 -Hold all sedation vacations per Dr. Branham, due to active seizure activity RESP: Acute hypoxic and hypercarbic respiratory failure PRVC 16/550///35 Albuterol/ipratropium every 6 hours and when necessary - HOLD SBT / CPAP trials at this time, maintain sedation secondary to active seizure activity -CXR 11/12: Moderate right pleural effusion, atelectasis. CV: -Monitor HR and BP keep MAP>65mmHg Not requiring any interventions and/or vasopressors at the present time Continue clonidine patch 0.1 mg every week. GI: Hypoalbuminemia -Continue tube feeds- Glucerna 1.5 @ 50ml/hr @ goal Pantoprazole 40 mg IV daily for GI prophylaxis - Bowel Regimen with docusate sodium/senna twice a day on hold C. difficile positive-by mouth vancomycin lactulose 15 cc every 8 hours Renal/: Acute kidney injury- resolved. Hypocalcemia - Monitor renal function, - electrolytes replacement as needed per ICU electrolyte protocol Currently stable ID: Encephalitis is probably noninfectious E Coli UTI E. Aerogenes Escherichia coli/staph aureus bacteremia Pneumonia C. difficile Continue with abx (Cefepime, levofloxacin) ID is following monitor for signs of infections ( Fever, WBC) - Blood cultures 11/11 - no growth - Blood,sputum from 11/05: Escherichia coli, sputum cx 11/05: Escherichia coli, Staph Aureus, Enterobacter Aerogenes -Urine cx 10/30: Escherichia coli - TTP/HUS unlikely given negative peripheral smear for schistocytes -ID following-Dr. Mackay. Discontinued cefepime 11/12. Restarted instead on ceftriaxone 11/12. Currently on levofloxacin 500 mg daily and until 11/18 Oral vancomycin 500 every 6 hours for C. difficile +11/12 HEME: Thrombocytopenia Normocytic anemia Superficial thrombus cephalic vein/right - Monitor CBC, CMP, coags, Fibrinogen level 365 11/05, Heme was called and currently signed off -HIT panel is negative No indications for transfusion of blood product at this time ENDO: Type 2 diabetes Hyperglycemia secondary steroids Holding metformin 500 mg twice a day/home medication - Electrolyte replacement per protocol - SSI (High scale Novulin R) Levemir 14 units BID MSK: Wound care consult for eschar noted sacral nedr-aifjta-oe recommendations PROPH: - Bilateral lower extremity SCDs. Anoxic. SQ -US RUE: Occlusion of the cephalic vein. -US LE b/L: No DVT - IV pantoprazole LINES: - Utilize peripheral IVs Luis Fernando Sadler MD Nov 17, 2016 18:12
--- NOTE | 2016-11-17 18:21 | HHI.PR ---
Review/Management Diagnosis Progressive encephalopathy . No evidence for infectious etiology. Anti- paraneoplastic antibodies so far negative. 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 EEG continues to show bilateral PLEDS, although suppressed on current sedation. Creutzfeld Juanjo is still in differential given clinical progression associated with myoclonus and PLEDS on EEG. Plan I discussed case at length today with his and son, indicating that Juanjo Creutzfeld is most likely dx, but there is no definite proof. Paraneoplastic abs are negative. No sign of attendance clerk infection. I met with family along with Palliative care and shrimp peeling machine tender Dr Gage and discussed options at this time including brain biopsy to try to achieve definitive dx, continue aggressive therapy or withdraw given the poor prognosis. Also [facility] to [facility]. Discussed with family that if current level of care were to continue,he will need to have tracheostomy placed soon. Family indicated they would like to discuss these options among themselves over next few days. 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 Branham to consider and f/u dilantin/depakote pending Subjective Subjective Comments No acute events reported No clinical Sz noted Active Medications Current Medications Medications (Trade) Dose Ordered Sig/Alyssa Route Start Time Stop Time Status Last Admin (Narcan Inj) 0.4 mg UNSCH PRN IV 10/25/16 00:45 (Ativan Inj) 1 mg Q6H PRN IV 10/26/16 21:30 11/08/16 17:34 (Catapres-Tts 0.1mg Patch.7d) 1 patch Q7D T-DERMAL 10/29/16 16:00 11/12/16 16:43 Miscellaneous Information 1 Q7D T-DERMAL 11/05/16 16:00 11/12/16 16:00 Lacosamide 100 mg/ Sodium Chloride 110 ml @ 110 mls/hr Q6H IV 11/01/16 15:00 11/17/16 16:24 (Peridex 0.12% Liq) 15 ml BID@08,20 MT 11/01/16 20:00 11/17/16 08:57 Midazolam HCl 100 ml @ 2 mls/hr TITRATE PRN IV 11/01/16 12:30 11/17/16 12:45 (Lovenox Inj) 40 mg Q24H SQ 11/02/16 09:00 Future hold 11/17/16 07:43 Potassium Chloride 100 ml @ 50 mls/hr Q2H PRN IV 11/01/16 14:00 Potassium Chloride 100 ml @ 50 mls/hr Q2H PRN IV 11/01/16 14:00 (K-Lyte Cl Eff) 50 meq UNSCH PRN PO 11/01/16 14:00 Potassium Chloride 100 ml @ 25 mls/hr UNSCH PRN IV 11/01/16 14:00 Potassium Chloride 100 ml @ 50 mls/hr Q2H PRN IV 11/01/16 14:00 Magnesium Sulfate 4 gm/Sodium Chloride 100 ml @ 50 mls/hr UNSCH PRN IV 11/01/16 14:00 (Mag-Ox) 800 mg UNSCH PRN PO 11/01/16 14:00 Magnesium Sulfate 2 gm/Sodium Chloride 100 ml @ 50 mls/hr UNSCH PRN IV 11/01/16 14:00 (K-Phos) 2,000 mg Q4H PRN PO 11/01/16 14:00 Sodium Phosphate 30 mmol/Sodium Chloride 250 ml @ 42 mls/hr UNSCH PRN IV 11/01/16 14:00 11/08/16 08:48 (K-Phos) 2,000 mg UNSCH PRN PO/TUBE 11/01/16 14:00 Potassium Phosphate 30 mmol/ Sodium Chloride 260 ml @ 42 mls/hr UNSCH PRN IV 11/01/16 14:00 (Lactulose Liq) 15 ml TID PO 11/05/16 09:00 11/17/16 17:50 Fentanyl Citrate 250 ml @ 5 mls/hr TITRATE PRN IV 11/05/16 22:15 11/07/16 19:41 (Levemir Inj) 14 units Q12HR SQ 11/06/16 09:00 11/17/16 07:51 (D50w (Vial) Inj) 50 ml UNSCH PRN IV 11/07/16 09:30 (Glucagon Inj) 1 mg UNSCH PRN OTHER 11/07/16 09:30 (NovoLIN R SUPPLEMENTAL SCALE) 1 Q6H SQ 11/07/16 11:00 11/14/16 05:00 (SoluMEDROL INJ) 60 mg Q6H IV 11/11/16 02:00 11/17/16 12:18 Propofol 100 ml @ 15.3 mls/hr CONTINUOUS PRN IV 11/11/16 17:15 11/17/16 12:19 (Albuterol Neb) 2.5 mg Q2HR NEB PRN NEB 11/12/16 15:15 (VANCOMYCIN for oral use only) 500 mg Q6H PO 11/13/16 00:00 11/17/16 17:51 Fosphenytoin Sodium 200 mgpe/ Sodium Chloride 54 ml @ 216 mls/hr Q6HR IV 11/14/16 12:00 11/17/16 17:50 Valproate Sodium 750 mg/Sodium Chloride 107.5 ml @ 105 mls/hr Q4HR IV 11/14/16 16:00 11/17/16 16:25 (Free Water) VOLUME: 300 ML Q4HR G-TUBE 11/15/16 16:00 11/17/16 16:00 (Lasix Inj) 40 mg BID@09,18 IV PUSH 11/15/16 14:45 11/17/16 17:50 Potassium Chloride/Sodium Chloride 1,000 ml @ 100 mls/hr Q10H IV 11/16/16 18:00 11/17/16 12:17 (NS Flush) 2 ml UNSCH PRN IVF 11/16/16 16:30 (NS Flush) 2 ml BID IVF 11/16/16 21:00 11/16/16 21:00 Levetriacetam 500 mg/Sodium Chloride 105 ml @ 400 mls/hr Q12H IV 11/16/16 20:00 11/17/16 07:42 (Dulcolax Supp) 10 mg DAILY PRN RECTAL 11/16/16 16:30 (Colace) 100 mg BID PO 11/16/16 21:00 11/16/16 21:51 (Protonix) 40 mg DAILY PO 11/17/16 09:00 (Protonix Inj) 40 mg DAILY IVP 11/17/16 09:00 11/17/16 07:43 (Zofran Inj) 4 mg Q6H PRN IV 11/16/16 16:30 (Calcium Gluconate Inj) 1 gm UNSCH PRN IV 11/16/16 16:30 Potassium Chloride 100 ml @ 50 mls/hr UNSCH PRN IV 11/16/16 16:30 Magnesium Sulfate 4 gm/Sodium Chloride 108 ml @ 108 mls/hr UNSCH PRN IV 11/16/16 16:30 ([place] 10-325 Mg) 1 tab Q4H PRN PO 11/16/16 16:30 ([place] 10-325 Mg) 2 tab Q4H PRN PO 11/16/16 16:30 (Morphine Inj) 2 mg Q2H PRN IV PUSH 11/16/16 16:30 (Morphine Inj) 4 mg Q2H PRN IV PUSH 11/16/16 16:30 (Tylenol) 650 mg Q4H PRN PO 11/16/16 16:30 Allergies Allergies Coded Allergies penicillin G (Unverified Allergy, Severe, 10/17/16) Review of Systems All other ROS: ROS reviewed as documented in chart Exam I&O / VS Vital Signs Date Time Temp Pulse Resp B/P (MAP) Pulse Ox O2 Delivery O2 Flow Rate FiO2 11/17/16 17:27 98 35 11/17/16 16:00 62 11/17/16 16:00 99.3 11/17/16 16:00 35 11/17/16 14:00 66 11/17/16 12:00 68 11/17/16 12:00 99.1 11/17/16 12:00 35 11/17/16 11:14 97 35 11/17/16 10:00 69 11/17/16 08:00 35 11/17/16 08:00 98.2 11/17/16 08:00 66 11/17/16 07:33 98 35 11/17/16 06:00 65 11/17/16 06:00 65 18 107/59 (75) 96 11/17/16 04:26 100 35 11/17/16 04:00 35 11/17/16 04:00 63 11/17/16 04:00 97.8 63 18 90/56 (67) 98 11/17/16 02:00 65 11/17/16 00:00 100 35 11/17/16 00:00 97.7 62 17 94/57 (69) 100 11/17/16 00:00 62 11/17/16 00:00 35 11/16/16 22:00 63 11/16/16 20:00 98.0 61 18 92/54 (67) 100 11/16/16 20:00 35 11/16/16 20:00 61 11/16/16 19:53 100 35 11/16/16 18:30 61 Exam Comments Intubated and on versed.propofol --nonresponsive CN--PERRL, MOTOR--no focal deficit.No clinical sz activity Objective Micro and Labs Laboratory Tests Test 11/17/16 04:15 White Blood Count 12.9 Red Blood Count 3.07 Hemoglobin 9.6 Hematocrit 29.6 Mean Corpuscular Volume 96.4 Mean Corpuscular Hemoglobin 31.4 Mean Corpuscular Hemoglobin Concent 32.6 Red Cell Distribution Width 15.1 Platelet Count 131 Mean Platelet Volume 9.8 Blood Urea Nitrogen 42 Creatinine 0.86 Random Glucose 124 Total Protein 5.9 Calcium Level 7.3 Sodium Level 147 Potassium Level 4.6 Chloride Level 111 Carbon Dioxide Level 28.6 Anion Gap 7 Estimat Glomerular Filtration Rate 88 Protein Corrected Calcium 7.9 Date/Time Source Procedure Growth Status 11/11/16 01:37 Blood Peripheral Aerobic Blood Culture - Final NO GROWTH IN 5 DAYS Complete 11/11/16 01:37 Blood Peripheral Anaerobic Blood Culture - Final NO GROWTH IN 5 DAYS Complete 10/26/16 13:00 Cerebral Spinal Fluid Lumbar Puncture Fungal Smear - Final NO FUNGAL ELEMENTS SEEN. Resulted 10/26/16 13:00 Cerebral Spinal Fluid Lumbar Puncture Fungal Culture - Preliminary NO GROWTH IN 3 WEEKS Resulted 11/05/16 09:15 Sputum Endotracheal Gram Stain - Final Complete 11/05/16 09:15 Sputum Culture - Final Staphylococcus Aureus Escherichia Coli Enterobacter Aerogenes Complete 11/06/16 03:00 Urine Catheterized Urine Urine Culture - Final NO GROWTH IN 48 HOURS. Complete Miguelito Branham PhD Nov 17, 2016 18:21
--- NOTE | 2016-11-17 18:40 | HHI.PR ---
Subjective Remarks 66 YOWM with AMS, sz, renal insuff Sedated with Versed 10 mg /hr at BS On Fi02 35% No new changes Objective Vital Signs Vital Signs Date Time Temp Pulse Resp B/P (MAP) Pulse Ox O2 Delivery O2 Flow Rate FiO2 11/17/16 18:00 62 11/17/16 17:27 98 35 11/17/16 16:00 62 11/17/16 16:00 99.3 11/17/16 16:00 35 11/17/16 14:00 66 11/17/16 12:00 68 11/17/16 12:00 99.1 11/17/16 12:00 35 11/17/16 11:14 97 35 11/17/16 10:00 69 11/17/16 08:00 35 11/17/16 08:00 98.2 11/17/16 08:00 66 11/17/16 07:33 98 35 11/17/16 06:00 65 11/17/16 06:00 65 18 107/59 (75) 96 11/17/16 04:26 100 35 11/17/16 04:00 35 11/17/16 04:00 63 11/17/16 04:00 97.8 63 18 90/56 (67) 98 11/17/16 02:00 65 11/17/16 00:00 100 35 11/17/16 00:00 97.7 62 17 94/57 (69) 100 11/17/16 00:00 62 11/17/16 00:00 35 11/16/16 22:00 63 11/16/16 20:00 98.0 61 18 92/54 (67) 100 11/16/16 20:00 35 11/16/16 20:00 61 11/16/16 19:53 100 35 I/O 11/16/16 11/16/16 11/16/16 11/17/16 11/17/16 11/17/16 07:00 15:00 23:00 07:00 15:00 23:00 Intake Total 2023.0 ml 1351 ml 2772 ml 1314 ml Output Total 1600 ml 1450 ml 800 ml 1400 ml Balance 423.0 ml -99 ml 1972 ml -86 ml IV Total 733.0 ml 50 ml 1583 ml Tube Feeding 690 ml 701 ml 589 ml 714 ml Other 600 ml 600 ml 600 ml 600 ml Output Urine Total 800 ml 1250 ml 500 ml 1100 ml Stool Total 800 ml 200 ml 300 ml 300 ml Bladder Scan Volume Amount 585 ml # Voids 2 Result Diagram: 11/17/1641411/17/16414 Objective Remarks GENERAL: WBWN male, unresponsive SKIN: Warm and dry. HEAD: Normocephalic. EYES: No scleral icterus. No injection or drainage. NECK: Supple, trachea midline. No JVD or lymphadenopathy. CARDIOVASCULAR: Regular rate and rhythm without murmurs, gallops, or rubs. RESPIRATORY: Breath sounds equal bilaterally. No accessory muscle use. GASTROINTESTINAL: Abdomen soft, non-tender, nondistended. MUSCULOSKELETAL: No cyanosis, or edema. BACK: Nontender without obvious deformity. No CVA tenderness. A/P Assessment and Plan AMS SZ disorder Renal insuff ? Cerebritis RF, on vent PLAN Vent Support Anti sz meds per Neuro Monitor renal functions Neuro following pt. DW at BS Sedation with versed PO Stanley Lee MD Nov 17, 2016 18:40
[2016-11-18] VITALS (19 sets, daily range): BP systolic 94–122; BP diastolic 54–72; PULSE 65–72; RESP 11–23; TEMP 96.9–98.2; O2SAT 92–100
[2016-11-18] MEDS: VALPROATE INJ 750 MG in SODIUM CHLORIDE 0.9% INJ 100 ML IV SCH ×6 (00:06→20:05)
[2016-11-18] MEDS: VANCOMYCIN 500 MG VIAL (FOR ORAL USE ONLY) PO SCH ×4 (00:06→17:30)
[2016-11-18] MEDS: FOSPHENYTOIN INJ 200 MGPE in SODIUM CHLORIDE 0.9% INJ 50 ML IV SCH ×4 (00:06→17:32)
[2016-11-18] MEDS: methylPREDNISolone SOD SUCC 125 MG/2 ML VIAL IV SCH ×4 (02:31→20:06)
[2016-11-18] MEDS: PROPOFOL 1000 MG/100 ML INJ 100 ML IV PRN ×4 (02:31→18:49)
[2016-11-18] MEDS: LACOSAMIDE INJ 100 MG in SODIUM CHLORIDE 0.9% INJ 100 ML IV SCH ×4 (02:31→21:08)
[2016-11-18] MEDS: FREE WATER G-TUBE SCH ×6 (04:00→20:00)
[2016-11-18] MEDS: NS + KCL 20 MEQ INJ 1,000 ML IV SCH ×2 (04:10→12:04)
[2016-11-18] MEDS: INSULIN NovoLIN REGULAR SUPPLEMENTAL SCALE SQ SCH ×4 (04:21→23:00)
[2016-11-18] MEDS ORDERED: DEXTROSE 50% IN WATER 50 ML SYRINGE ONE ×3 (04:22→06:08)
[2016-11-18 06:37] LABS: HEMATOCRIT 30.4 % (39.0-51.0); MEAN CELL VOLUME 96.1 FL (80.0-100.0); MEAN CORPUSCULAR HEMOGLOBIN 30.9 PG (27.0-34.0); MEAN CORPUSCULAR HGB CONC 32.2 % (32.0-36.0); PLATELET COUNT 166 TH/MM3 (150-450); RED BLOOD COUNT 3.16 MIL/MM3 (4.50-5.90); RED CELL DISTRIBUTION WIDTH 14.9 % (11.6-17.2)
[2016-11-18 06:55] LABS: REVIEW FLAG FINAL
[2016-11-18 07:06] LABS: BICARBONATE 26.1 MEQ/L (21.0-32.0)
[2016-11-18 07:29] LABS: CALCIUM-PROTEIN CORRECTED 7.6 MG/DL (8.5-10.1)
[2016-11-18] MEDS: levETIRAcetam INJ 500 MG in SODIUM CHLORIDE 0.9% INJ 100 ML IV SCH ×2 (08:00→20:05)
[2016-11-18] MEDS: CHLORHEXIDINE 0.12% (ORAL KIT) 15 ML CUP MT SCH ×2 (08:00→20:00)
[2016-11-18] MEDS: ENOXAPARIN SODIUM 40 MG/0.4 ML SYRINGE SQ SCH (08:28)
[2016-11-18] MEDS: PANTOPRAZOLE SODIUM 40 MG VIAL IVP SCH (08:30)
[2016-11-18] MEDS: MIDAZOLAM 100 MG/NS 100 ML DRIP Premix IV PRN (08:30)
[2016-11-18] MEDS: FUROSEMIDE 40 MG/4 ML VIAL IV PUSH SCH ×2 (08:32→17:30)
[2016-11-18] MEDS: SODIUM CHLORIDE 0.9% FLUSH 5 ML FLUSH IVF SCH ×2 (08:51→20:06)
[2016-11-18] MEDS: PANTOPRAZOLE SOD 40 MG DELAYED RELEASE TAB PO SCH (08:52)
[2016-11-18] MEDS: DOCUSATE SODIUM 100 MG CAP PO SCH ×2 (08:52→21:00)
[2016-11-18] MEDS: LACTULOSE SYRUP 20 GM/30 ML CUP PO SCH ×3 (08:52→17:30)
[2016-11-18] MEDS: INSULIN DETEMIR 100 UNITS/ML VIAL SQ SCH ×2 (08:53→20:06)
--- NOTE | 2016-11-18 15:48 | HHI.PR ---
Subjective Remarks 66 YOWM with AMS, sz, renal insuff Sedated with Versed 10 mg /hr at BS On Fi02 35% No new changes On CPAP , tolerates Objective Vital Signs Vital Signs Date Time Temp Pulse Resp B/P (MAP) Pulse Ox O2 Delivery O2 Flow Rate FiO2 11/18/16 14:00 65 11/18/16 13:31 98 35 11/18/16 12:00 69 11/18/16 12:00 97.5 70 14 122/72 (89) 98 11/18/16 12:00 35 11/18/16 10:00 70 11/18/16 08:15 35 11/18/16 08:08 35 11/18/16 08:08 96 35 11/18/16 08:00 35 11/18/16 08:00 69 11/18/16 08:00 97.7 69 19 105/63 (77) 97 11/18/16 06:00 69 11/18/16 04:19 96 35 11/18/16 04:00 35 11/18/16 04:00 98.2 72 23 116/65 (82) 92 11/18/16 04:00 72 11/18/16 02:00 67 11/18/16 00:07 100 35 11/18/16 00:00 35 11/18/16 00:00 98.2 68 18 109/60 (76) 100 11/18/16 00:00 68 11/17/16 22:00 66 11/17/16 21:14 100 35 11/17/16 20:00 66 11/17/16 20:00 35 11/17/16 20:00 98.8 66 18 112/61 (78) 99 11/17/16 18:00 62 11/17/16 17:27 98 35 11/17/16 16:00 62 11/17/16 16:00 99.3 11/17/16 16:00 35 I/O 11/17/16 11/17/16 11/17/16 11/18/16 11/18/16 11/18/16 07:00 15:00 23:00 07:00 15:00 23:00 Intake Total 2772 ml 50 ml 1414 ml 262 ml 260 ml Output Total 800 ml 1400 ml 1250 ml Balance 1972 ml 50 ml 14 ml -988 ml 260 ml IV Total 1583 ml 50 ml 100 ml 262 ml 260 ml Tube Feeding 589 ml 714 ml Other 600 ml 600 ml Output Urine Total 500 ml 1100 ml 600 ml Stool Total 300 ml 300 ml 650 ml # Voids 2 Result Diagram: 11/18/1644611/18/16446 Objective Remarks GENERAL: WBWN male, unresponsive SKIN: Warm and dry. HEAD: Normocephalic. EYES: No scleral icterus. No injection or drainage. NECK: Supple, trachea midline. No JVD or lymphadenopathy. CARDIOVASCULAR: Regular rate and rhythm without murmurs, gallops, or rubs. RESPIRATORY: Breath sounds equal bilaterally. No accessory muscle use. GASTROINTESTINAL: Abdomen soft, non-tender, nondistended. MUSCULOSKELETAL: No cyanosis, or edema. BACK: Nontender without obvious deformity. No CVA tenderness. A/P Assessment and Plan AMS SZ disorder Renal insuff ? Cerebritis RF, on vent PLAN Vent Support, cont CPAP as tolerated Anti sz meds per Neuro Monitor renal functions Neuro following pt. DW at BS Sedation with versed Stanley Malhotra MD Nov 18, 2016 15:48
--- NOTE | 2016-11-18 16:02 | HHI.CCPN ---
Subjective Remarks/Hospital Course This is a 66-year-old man with history of diabetes, hypertension, dyslipidemia who about a month ago started having difficulty with balance with shuffling type of gait and resting tremor along with recent cognitive decline as well. His initial admission was on 10/06/16, as initial workup was negative patient was admitted to psych unit on 10/06/16 for suicidal ideations and altered mental status. He was evaluated by neurology Dr Branham, possibility of Parkinsonian symptoms and vitamin B 12 deficiency was entertained, but there was no improvement with treatment. He was re admitted to hospitalist service with worsening mental status on 10/25/16. Per Dr. Branham, MRI showed possible cerebritis. Differential included Creutzfeldt-Ministerio. But 14-3-3 protein for Creutzfeldt-Ministerio was negative. Currently on acyclovir for possibility of viral cerebritis. EEG done 10/24/16 showed generalized epileptiform activity. Patient was placed on Cerebyx, Keppra. Keppra was DCd due to rash and currently patient is on Cerebyx and Vimpat. Repeat EEGs from 10/31/16 and today shows continued seizure activity/subclinical seizures. Patient continues to be encephalopathic not responding. EEG today shows continued seizure activity indicating status epilepticus. Critical-care medicine was consulted by Dr. Branham today for continuous Versed infusion after intubation I evaluated the patient in ICU. He barely opens his eyes to painful stimuli localizes with right upper extremity withdrawal of any other extremities. Discussed with Dr. Branham multiple times. In his opinion, this appears to be a autoimmune encephalitis less likely to be infectious. Anti-NMDA receptor antibody ordered. Per Dr. Branham D/D possibly paraneoplastic, vasculitic or NMDA- receptor encephalitis. Currently patient is on IV Solu-Medrol and IVIG had been ordered by Dr. Branham. Initiate continuous EEG monitoring. TTP/HUS unlikely, but patient has E Coli UTI, I have asked for peripheral smear review by pathologist 11/02: remains encephalopathic, but also very deeply sedated on versed drip. continuous EEG with intermittent sharp spikes that correspond with rhythmic neck movement. neurology adding additional anti-epileptics. peripheral smear without Schistocytes. currently receiving IVIG for possible au immune encephalopathy. 11/03 Patient remains sedated and intubated. Afebrile. 11/04 Patient remains intubated and sedated with Versed 10mg/hr. Tmax 100.6 11/05 No events overnight. On Versed drip for sedation, no seizures overnight. Patient is on continuous EEG monitoring. T: 101.0 last night. 11/06 Patient is sedated with Versed and Fentanyl. No seizures overnight. Afebrile. 11/07 Patient remains sedated and intubated. Afebrile. No recurrent seizures overnight. 11/08 TMax 99.6. The patient was noted to be on sedation vacation, EEG was being performed patient was noted to have subclinical seizures persistent. The patient was immediately bolused with 5 mg IV.Versed infusion continued at 8 mg/ h noted cessation of subclinical seizures and the patient continues to be monitored via EEG. Noted phenytoin and valproic acid levels were noted subtherapeutic today. 11/09 TMax 100.7. No further sedation holiday per Neurology due to ongoing subclinical seizure activity.the patient continues on AED's. AED levels pending in am.The patient remained on continuous EEG monitoring throughout the night with cessation of subclinical seizure activity. 11/10: No acute events overnight. EEG performed today. Propofol infusion added to medication regimen.\ 11/12: Maximum 101.9. Currently afebrile. Tolerating tube feeding. Positive BM. 11/13: Moved from room 526 to room 500 due to leaking window. Early afebrile. Diagnosed with C. difficile EPID O27 negative. Started on oral vancomycin per infectious disease. Otherwise no changes overnight. 11/14: The patient continues on deep sedation secondary to subclinical seizure activity, per Dr. Branham recommendation. Continues on Versed 10 mg, propofol 25 mcgs. Discussed extensively possibility of tracheostomy with today. Further discussion planned tomorrow, after results from EEG and repeat MRI are obtained, to assess for continued subclinical seizure activity. 11/15: no improvements in mental status. will get palliative involved. poor prognosis. still seizes with any lightening of deep sedation. 11/16: No changes or improvements. MRI with persistence of subtle changes in the temporal and occipital regions. Highest on the differential is spongiform encephalitis at this point per neurology. Neuro considering possible brain biopsy. Palliative involved. 11/17: no improvements. long family discussion today. family will discuss the options of aggressive care with trach/peg and placement vs. palliation and comfort measures. Subjective 11/18: no neuro changes. family still deciding on their goals of care. for now, still aggressive. Objective Vital Signs Date Time Temp Pulse Resp B/P (MAP) Pulse Ox O2 Delivery O2 Flow Rate FiO2 11/18/16 14:00 65 11/18/16 13:31 98 35 11/18/16 12:00 97.5 14 122/72 (89) 11/16/16 17:05 Ventilator Intake and Output 11/18/16 11/18/16 11/19/16 08:00 16:00 00:00 Intake Total 262 ml 260 ml Output Total 1250 ml Balance -988 ml 260 ml Result Diagram: 11/18/16 0447 11/18/16 0447 Imaging Last Impressions Chest X-Ray 11/14/16 0600 Signed Impressions: Service Date/Time: Monday, November 14, 2016 04:59 - CONCLUSION: 1. Basilar airspace disease similar to November 12. Endotracheal tube and nasogastric tube in satisfactory position. Kit Cates MD Brain MRI 11/07/16 0000 Signed Impressions: Service Date/Time: Monday, November 07, 2016 11:17 - CONCLUSION: 1. Continued subtle signal abnormality involving the pinto-white junction in the right occipital and right parietal regions. There has been no significant change when compared to the prior exam. Kranthi Lloyd MD Upper Extremity Ultrasound 11/04/16 0000 Signed Impressions: Service Date/Time: Friday, November 04, 2016 18:24 - CONCLUSION: Occlusion of the cephalic vein. The other veins are patent. Everett Block MD Lower Extremity Ultrasound 11/03/16 0000 Signed Impressions: Service Date/Time: Thursday, November 03, 2016 15:19 - CONCLUSION: Negative for deep venous thrombosis. Rahat Frey MD FACR Chest CT 11/01/16 0000 Signed Impressions: Service Date/Time: Tuesday, November 01, 2016 15:59 - CONCLUSION: Minimal nonspecific adenopathy the bibasilar parenchymal changes worse on the left. Rahat Frye MD FACR Abdomen/Pelvis CT 11/01/16 0000 Signed Impressions: Service Date/Time: Tuesday, November 01, 2016 16:04 - CONCLUSION: Nonspecific minimal bowel wall thickening transverse colon. There are no ancillary signs of malignancy. Rahat Frey MD FACR Lumbar Puncture Fluoroscopy 10/26/16 0000 Signed Impressions: Service Date/Time: October 12:24 - CONCLUSION: Uncomplicated fluoroscopically guided cervical puncture. Kranthi Lloyd MD Last Impressions Chest X-Ray 11/12/16 0600 Signed Impressions: Service Date/Time: Saturday, November 12, 2016 03:47 - CONCLUSION: Bilateral perihilar infiltrates and right small to moderate pleural effusion, all slightly worse in the interim. Madhav Oneil MD Brain MRI 11/07/16 0000 Signed Impressions: Service Date/Time: Monday, November 07, 2016 11:17 - CONCLUSION: 1. Continued subtle signal abnormality involving the pinto-white junction in the right occipital and right parietal regions. There has been no significant change when compared to the prior exam. Kranthi Lloyd MD Upper Extremity Ultrasound 11/04/16 0000 Signed Impressions: Service Date/Time: Friday, November 04, 2016 18:24 - CONCLUSION: Occlusion of the cephalic vein. The other veins are patent. Everett Block MD Lower Extremity Ultrasound 11/03/16 0000 Signed Impressions: Service Date/Time: Thursday, November 03, 2016 15:19 - CONCLUSION: Negative for deep venous thrombosis. Rahat Frey MD FACR Chest CT 11/01/16 0000 Signed Impressions: Service Date/Time: Tuesday, November 01, 2016 15:59 - CONCLUSION: Minimal nonspecific adenopathy the bibasilar parenchymal changes worse on the left. Rahat Frey MD FACR Abdomen/Pelvis CT 11/01/16 0000 Signed Impressions: Service Date/Time: Tuesday, November 01, 2016 16:04 - CONCLUSION: Nonspecific minimal bowel wall thickening transverse colon. There are no ancillary signs of malignancy. Rahat Frey MD FACR Lumbar Puncture Fluoroscopy 10/26/16 0000 Signed Impressions: Service Date/Time: October 12:24 - CONCLUSION: Uncomplicated fluoroscopically guided cervical puncture. Kranthi Lloyd MD Objective Remarks GENERAL: 66-year-old male, lying in bed, intubated, and sedated. SKIN: Warm and dry. No lesions noted. HEENT: Normocephalic. Pupils equal 2 mm reactive. orotracheally intubated CARDIOVASCULAR: RRR. Telemetry sinus rhythm RESPIRATORY:. Symmetrical excursion. intubated. GASTROINTESTINAL: Abdomen soft, non-tender, nondistended MUSCULOSKELETAL: No obvious deformities. No significant peripheral edema. NEUROLOGICAL: GCS 3T.Deeply sedated on multiple sedatives. Pupils 5 mm bilaterally and reactive. A/P Assessment and Plan Assessment: 66yM with acute encephalopathy of unknown etiology. All tests negative at this point. Prognosis would be poor. palliative on board. If goals of care remain aggressive, then we need to pursue trach and peg. CJD would have a terminal prognosis, as would likely any diagnosis at this point going forward. Family does not want to pursue brain biopsy, but will decide on aggressive measures vs. palliative withdraw. 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 Goal of RASS -4 -10/31 MRI brain: Subtle signal abdomen only at the pinto-white junction in the right hemisphere as above. The findings may reflect encephalitis or cerebritis -11/07 repeat MRI brain continued subtle signal abnormality involving pinto/white matter junction in right occiput total and right parietal regions. No change from previous MRI -11/10 Continuous EEG, noted subclinical appears worse than 11/08 EEG - Continue IV fosphenytoin 200mg Q6, lacosamide 100 mg every 6 hours valproic acid 600 mill grams IV every 4 hours Recheck levels 11/14 - Workup negative for infectious encephalitis - Ongoing workup for autoimmune encephalitis, anti-NMDA receptor antibody negative. - all paraneoplastic antibodies and anti nmda antibody negative. - Repeat MRI unchanged. - Continue IV Solu-Medrol 60 mg IV Q6 per Dr. Branham/neurology - TTP/HUS unlikely given lack of schistocytes on peripheral smear 11/01 -Hold all sedation vacations per Dr. Branham, due to active seizure activity RESP: Acute hypoxic and hypercarbic respiratory failure PRVC 16/550// Albuterol/ipratropium every 6 hours and when necessary - HOLD SBT / CPAP trials at this time, maintain sedation secondary to active seizure activity -CXR 11/12: Moderate right pleural effusion, atelectasis. CV: -Monitor HR and BP keep MAP>65mmHg Not requiring any interventions and/or vasopressors at the present time Continue clonidine patch 0.1 mg every week. GI: Hypoalbuminemia -Continue tube feeds- Glucerna 1.5 @ 50ml/hr @ goal Pantoprazole 40 mg IV daily for GI prophylaxis - Bowel Regimen with docusate sodium/senna twice a day on hold C. difficile positive-by mouth vancomycin lactulose 15 cc every 8 hours Renal/: Acute kidney injury- resolved. Hypocalcemia - Monitor renal function, - electrolytes replacement as needed per ICU electrolyte protocol Currently stable ID: Encephalitis is probably noninfectious E Coli UTI E. Aerogenes Escherichia coli/staph aureus bacteremia Pneumonia C. difficile Continue with abx (Cefepime, levofloxacin) ID is following monitor for signs of infections ( Fever, WBC) - Blood cultures 11/11 - no growth - Blood,sputum from 11/05: Escherichia coli, sputum cx 11/05: Escherichia coli, Staph Aureus, Enterobacter Aerogenes -Urine cx 10/30: Escherichia coli - TTP/HUS unlikely given negative peripheral smear for schistocytes -ID following-Dr. Mackay. Discontinued cefepime 11/12. Restarted instead on ceftriaxone 11/12. Currently on levofloxacin 500 mg daily and until 11/18, d/c today. HEME: Thrombocytopenia Normocytic anemia Superficial thrombus cephalic vein/right - Monitor CBC, CMP, coags, Fibrinogen level 365 11/05, Heme was called and currently signed off -HIT panel is negative No indications for transfusion of blood product at this time ENDO: Type 2 diabetes Hyperglycemia secondary steroids Holding metformin 500 mg twice a day/home medication - Electrolyte replacement per protocol - SSI (High scale Novulin R) Levemir 14 units BID MSK: Wound care consult for eschar noted sacral [id number] recommendations PROPH: - Bilateral lower extremity SCDs. Anoxic. SQ -US RUE: Occlusion of the cephalic vein. -US LE b/L: No DVT - PO pantoprazole. LINES: - Utilize peripheral IVs Luis Fernando Sadler MD Nov 18, 2016 16:02
[2016-11-19] VITALS (18 sets, daily range): BP systolic 86–129; BP diastolic 51–78; PULSE 69–104; RESP 16–21; TEMP 97.2–100.4; O2SAT 93–99
[2016-11-19] MEDS: FOSPHENYTOIN INJ 200 MGPE in SODIUM CHLORIDE 0.9% INJ 50 ML IV SCH ×4 (00:34→17:30)
[2016-11-19] MEDS: VANCOMYCIN 500 MG VIAL (FOR ORAL USE ONLY) PO SCH ×4 (00:34→17:29)
[2016-11-19] MEDS: PROPOFOL 1000 MG/100 ML INJ 100 ML IV PRN ×5 (00:34→20:12)
[2016-11-19] MEDS: VALPROATE INJ 750 MG in SODIUM CHLORIDE 0.9% INJ 100 ML IV SCH ×6 (00:56→20:15)
[2016-11-19] MEDS: methylPREDNISolone SOD SUCC 125 MG/2 ML VIAL IV SCH ×4 (03:15→20:14)
[2016-11-19] MEDS: FREE WATER G-TUBE SCH ×6 (03:15→20:00)
[2016-11-19] MEDS: LACOSAMIDE INJ 100 MG in SODIUM CHLORIDE 0.9% INJ 100 ML IV SCH ×4 (03:15→20:15)
[2016-11-19] MEDS: MIDAZOLAM 100 MG/NS 100 ML DRIP Premix IV PRN ×2 (03:15→20:13)
[2016-11-19 05:00] LABS: HEMATOCRIT 32.4 % (39.0-51.0); MEAN CORPUSCULAR HEMOGLOBIN 31.7 PG (27.0-34.0); PLATELET COUNT 175 TH/MM3 (150-450); RED BLOOD COUNT 3.38 MIL/MM3 (4.50-5.90); RED CELL DISTRIBUTION WIDTH 17.9 % (11.6-17.2); REVIEW FLAG FINAL; WHITE BLOOD COUNT 8.1 TH/MM3 (4.0-11.0)
[2016-11-19] MEDS: INSULIN NovoLIN REGULAR SUPPLEMENTAL SCALE SQ SCH ×4 (05:00→20:16)
[2016-11-19 05:28] LABS: BICARBONATE 26.7 MEQ/L (21.0-32.0); POTASSIUM 4.4 MEQ/L (3.5-5.1)
[2016-11-19] MEDS: CHLORHEXIDINE 0.12% (ORAL KIT) 15 ML CUP MT SCH ×2 (07:43→20:14)
[2016-11-19] MEDS: levETIRAcetam INJ 500 MG in SODIUM CHLORIDE 0.9% INJ 100 ML IV SCH ×2 (07:45→20:14)
[2016-11-19] MEDS: LACTULOSE SYRUP 20 GM/30 ML CUP PO SCH ×3 (08:15→17:29)
[2016-11-19] MEDS: DOCUSATE SODIUM 100 MG CAP PO SCH ×2 (08:15→20:14)
[2016-11-19] MEDS: FUROSEMIDE 40 MG/4 ML VIAL IV PUSH SCH ×2 (08:15→17:29)
[2016-11-19] MEDS: INSULIN DETEMIR 100 UNITS/ML VIAL SQ SCH ×2 (08:16→20:15)
[2016-11-19] MEDS: PANTOPRAZOLE SOD 40 MG DELAYED RELEASE TAB PO SCH (08:16)
[2016-11-19] MEDS: SODIUM CHLORIDE 0.9% FLUSH 5 ML FLUSH IVF SCH ×2 (08:16→20:15)
[2016-11-19] MEDS: ENOXAPARIN SODIUM 40 MG/0.4 ML SYRINGE SQ SCH (08:16)
--- NOTE | 2016-11-19 13:50 | HHI.CCPN ---
Subjective Remarks/Hospital Course This is a 66-year-old man with history of diabetes, hypertension, dyslipidemia who about a month ago started having difficulty with balance with shuffling type of gait and resting tremor along with recent cognitive decline as well. His initial admission was on 10/06/16, as initial workup was negative patient was admitted to psych unit on 10/06/16 for suicidal ideations and altered mental status. He was evaluated by neurology Dr Branham, possibility of Parkinsonian symptoms and vitamin B 12 deficiency was entertained, but there was no improvement with treatment. He was re admitted to hospitalist service with worsening mental status on 10/25/16. Per Dr. Branham, MRI showed possible cerebritis. Differential included Creutzfeldt-Ministerio. But 14-3-3 protein for Creutzfeldt-Ministerio was negative. Currently on acyclovir for possibility of viral cerebritis. EEG done 10/24/16 showed generalized epileptiform activity. Patient was placed on Cerebyx, Keppra. Keppra was DCd due to rash and currently patient is on Cerebyx and Vimpat. Repeat EEGs from 10/31/16 and today shows continued seizure activity/subclinical seizures. Patient continues to be encephalopathic not responding. EEG today shows continued seizure activity indicating status epilepticus. Critical-care medicine was consulted by Dr. Branham today for continuous Versed infusion after intubation I evaluated the patient in ICU. He barely opens his eyes to painful stimuli localizes with right upper extremity withdrawal of any other extremities. Discussed with Dr. Branham multiple times. In his opinion, this appears to be a autoimmune encephalitis less likely to be infectious. Anti-NMDA receptor antibody ordered. Per Dr. Branham D/D possibly paraneoplastic, vasculitic or NMDA- receptor encephalitis. Currently patient is on IV Solu-Medrol and IVIG had been ordered by Dr. Branham. Initiate continuous EEG monitoring. TTP/HUS unlikely, but patient has E Coli UTI, I have asked for peripheral smear review by pathologist 11/02: remains encephalopathic, but also very deeply sedated on versed drip. continuous EEG with intermittent sharp spikes that correspond with rhythmic neck movement. neurology adding additional anti-epileptics. peripheral smear without Schistocytes. currently receiving IVIG for possible au immune encephalopathy. 11/03 Patient remains sedated and intubated. Afebrile. 11/04 Patient remains intubated and sedated with Versed 10mg/hr. Tmax 100.6 11/05 No events overnight. On Versed drip for sedation, no seizures overnight. Patient is on continuous EEG monitoring. T: 101.0 last night. 11/06 Patient is sedated with Versed and Fentanyl. No seizures overnight. Afebrile. 11/07 Patient remains sedated and intubated. Afebrile. No recurrent seizures overnight. 11/08 TMax 99.6. The patient was noted to be on sedation vacation, EEG was being performed patient was noted to have subclinical seizures persistent. The patient was immediately bolused with 5 mg IV.Versed infusion continued at 8 mg/ h noted cessation of subclinical seizures and the patient continues to be monitored via EEG. Noted phenytoin and valproic acid levels were noted subtherapeutic today. 11/09 TMax 100.7. No further sedation holiday per Neurology due to ongoing subclinical seizure activity.the patient continues on AED's. AED levels pending in am.The patient remained on continuous EEG monitoring throughout the night with cessation of subclinical seizure activity. 11/10: No acute events overnight. EEG performed today. Propofol infusion added to medication regimen.\ 11/12: Maximum 101.9. Currently afebrile. Tolerating tube feeding. Positive BM. 11/13: Moved from room 526 to room 500 due to leaking window. Early afebrile. Diagnosed with C. difficile EPID O27 negative. Started on oral vancomycin per infectious disease. Otherwise no changes overnight. 11/14: The patient continues on deep sedation secondary to subclinical seizure activity, per Dr. Branham recommendation. Continues on Versed 10 mg, propofol 25 mcgs. Discussed extensively possibility of tracheostomy with today. Further discussion planned tomorrow, after results from EEG and repeat MRI are obtained, to assess for continued subclinical seizure activity. 11/15: no improvements in mental status. will get palliative involved. poor prognosis. still seizes with any lightening of deep sedation. 11/16: No changes or improvements. MRI with persistence of subtle changes in the temporal and occipital regions. Highest on the differential is spongiform encephalitis at this point per neurology. Neuro considering possible brain biopsy. Palliative involved. 11/17: no improvements. long family discussion today. family will discuss the options of aggressive care with trach/peg and placement vs. palliation and comfort measures. Subjective 11/18: no neuro changes. family still deciding on their goals of care. for now, still aggressive. 11/19: No acute events overnight. No neurological improvements. The patient continues on Diprivan and Versed infusion per neurology's recommendations, Objective Vital Signs Date Time Temp Pulse Resp B/P (MAP) Pulse Ox O2 Delivery O2 Flow Rate FiO2 11/19/16 12:00 45 11/19/16 12:00 94 11/19/16 12:00 99.0 18 129/78 (95) 94 11/16/16 17:05 Ventilator Intake and Output 11/19/16 11/19/16 11/20/16 08:00 16:00 00:00 Intake Total 1865 ml 763 ml Output Total 1950 ml Balance -85 ml 763 ml Result Diagram: 11/19/16 0401 11/19/16 0401 Imaging Last Impressions Chest X-Ray 11/14/16 0600 Signed Impressions: Service Date/Time: Monday, November 14, 2016 04:59 - CONCLUSION: 1. Basilar airspace disease similar to November 12. Endotracheal tube and nasogastric tube in satisfactory position. Kit Cates MD Brain MRI 11/07/16 0000 Signed Impressions: Service Date/Time: Monday, November 07, 2016 11:17 - CONCLUSION: 1. Continued subtle signal abnormality involving the pinto-white junction in the right occipital and right parietal regions. There has been no significant change when compared to the prior exam. Kranthi Lloyd MD Upper Extremity Ultrasound 11/04/16 0000 Signed Impressions: Service Date/Time: Friday, November 04, 2016 18:24 - CONCLUSION: Occlusion of the cephalic vein. The other veins are patent. Everett Block MD Lower Extremity Ultrasound 11/03/16 0000 Signed Impressions: Service Date/Time: Thursday, November 03, 2016 15:19 - CONCLUSION: Negative for deep venous thrombosis. Rahat Frey MD FACR Chest CT 11/01/16 0000 Signed Impressions: Service Date/Time: Tuesday, November 01, 2016 15:59 - CONCLUSION: Minimal nonspecific adenopathy the bibasilar parenchymal changes worse on the left. Rahat Frey MD FACR Abdomen/Pelvis CT 11/01/16 0000 Signed Impressions: Service Date/Time: Tuesday, November 01, 2016 16:04 - CONCLUSION: Nonspecific minimal bowel wall thickening transverse colon. There are no ancillary signs of malignancy. Rahat Frey MD FACR Lumbar Puncture Fluoroscopy 10/26/16 0000 Signed Impressions: Service Date/Time: October 12:24 - CONCLUSION: Uncomplicated fluoroscopically guided cervical puncture. Kranthi Lloyd MD Last Impressions Chest X-Ray 11/12/16 0600 Signed Impressions: Service Date/Time: Saturday, November 12, 2016 03:47 - CONCLUSION: Bilateral perihilar infiltrates and right small to moderate pleural effusion, all slightly worse in the interim. Madhav Oneil MD Brain MRI 11/07/16 0000 Signed Impressions: Service Date/Time: Monday, November 07, 2016 11:17 - CONCLUSION: 1. Continued subtle signal abnormality involving the pinto-white junction in the right occipital and right parietal regions. There has been no significant change when compared to the prior exam. Kranthi Lloyd MD Upper Extremity Ultrasound 11/04/16 0000 Signed Impressions: Service Date/Time: Friday, November 04, 2016 18:24 - CONCLUSION: Occlusion of the cephalic vein. The other veins are patent. Everett Block MD Lower Extremity Ultrasound 11/03/16 0000 Signed Impressions: Service Date/Time: Thursday, November 03, 2016 15:19 - CONCLUSION: Negative for deep venous thrombosis. Rahat Frey MD FACR Chest CT 11/01/16 0000 Signed Impressions: Service Date/Time: Tuesday, November 01, 2016 15:59 - CONCLUSION: Minimal nonspecific adenopathy the bibasilar parenchymal changes worse on the left. Rahat Frey MD FACR Abdomen/Pelvis CT 11/01/16 0000 Signed Impressions: Service Date/Time: Tuesday, November 01, 2016 16:04 - CONCLUSION: Nonspecific minimal bowel wall thickening transverse colon. There are no ancillary signs of malignancy. Rahat Frey MD FACR Lumbar Puncture Fluoroscopy 10/26/16 0000 Signed Impressions: Service Date/Time: October 12:24 - CONCLUSION: Uncomplicated fluoroscopically guided cervical puncture. Kranthi Lloyd MD Objective Remarks GENERAL: 66-year-old male, lying in bed, intubated, and sedated. SKIN: Warm and dry. No lesions noted. HEENT: Normocephalic. Pupils equal 2 mm reactive. orotracheally intubated CARDIOVASCULAR: RRR. Telemetry sinus rhythm RESPIRATORY:. Symmetrical excursion. intubated. GASTROINTESTINAL: Abdomen soft, non-tender, nondistended MUSCULOSKELETAL: No obvious deformities. No significant peripheral edema. NEUROLOGICAL: GCS 3T.Deeply sedated on multiple sedatives. Pupils 5 mm bilaterally and reactive. A/P Assessment and Plan Assessment: 66yM with acute encephalopathy of unknown etiology. All tests negative at this point. Prognosis would be poor. palliative on board. If goals of care remain aggressive, then we need to pursue trach and peg. CJD would have a terminal prognosis, as would likely any diagnosis at this point going forward. Family does not want to pursue brain biopsy, but will decide on aggressive measures vs. palliative withdraw. 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 Goal of RASS -4 -10/31 MRI brain: Subtle signal abdomen only at the pinto-white junction in the right hemisphere as above. The findings may reflect encephalitis or cerebritis -11/07 repeat MRI brain continued subtle signal abnormality involving pinto/white matter junction in right occiput total and right parietal regions. No change from previous MRI -11/10 Continuous EEG, noted subclinical appears worse than 11/08 EEG - Continue IV fosphenytoin 200mg Q6, lacosamide 100 mg every 6 hours valproic acid 600 mill grams IV every 4 hours Recheck levels 11/14 - Workup negative for infectious encephalitis - Ongoing workup for autoimmune encephalitis, anti-NMDA receptor antibody negative. - all paraneoplastic antibodies and anti nmda antibody negative. - Repeat MRI unchanged. - Continue IV Solu-Medrol 60 mg IV Q6 per Dr. Branham/neurology - TTP/HUS unlikely given lack of schistocytes on peripheral smear 11/01 -Hold all sedation vacations per Dr. Branham, due to active seizure activity RESP: Acute hypoxic and hypercarbic respiratory failure PRVC 16/550// Albuterol/ipratropium every 6 hours and when necessary - HOLD SBT / CPAP trials at this time, maintain sedation secondary to active seizure activity -CXR 11/12: Moderate right pleural effusion, atelectasis. Follow-up repeat chest x-ray in a.m. CV: -Monitor HR and BP keep MAP>65mmHg Not requiring any interventions and/or vasopressors at the present time Continue clonidine patch 0.1 mg every week. GI: Hypoalbuminemia -Continue tube feeds- Glucerna 1.5 @ 50ml/hr @ goal Pantoprazole 40 mg IV daily for GI prophylaxis - Bowel Regimen with docusate sodium/senna twice a day on hold C. difficile positive-by mouth vancomycin lactulose 15 cc every 8 hours Renal/: Acute kidney injury- resolved. Hypocalcemia - Monitor renal function, - electrolytes replacement as needed per ICU electrolyte protocol Currently stable ID: Encephalitis is probably noninfectious E Coli UTI E. Aerogenes Escherichia coli/staph aureus bacteremia Pneumonia C. difficile Continue with abx (Cefepime, levofloxacin) ID is following monitor for signs of infections ( Fever, WBC) - Blood cultures 11/11 - no growth - Blood,sputum from 11/05: Escherichia coli, sputum cx 11/05: Escherichia coli, Staph Aureus, Enterobacter Aerogenes -Urine cx 10/30: Escherichia coli - TTP/HUS unlikely given negative peripheral smear for schistocytes -ID following-Dr. Mackay. Discontinued cefepime 11/12. Restarted instead on ceftriaxone 11/12. Currently on levofloxacin 500 mg daily and until 11/18. HEME: Thrombocytopenia Normocytic anemia Superficial thrombus cephalic vein/right - Monitor CBC, CMP, coags, Fibrinogen level 365 11/05, Heme was called and currently signed off -HIT panel is negative No indications for transfusion of blood product at this time ENDO: Type 2 diabetes Hyperglycemia secondary steroids Holding metformin 500 mg twice a day/home medication - Electrolyte replacement per protocol - SSI (High scale Novulin R) Levemir 14 units BID MSK: Wound care consult for eschar noted sacral [id number] recommendations PROPH: - Bilateral lower extremity SCDs. Anoxic. SQ -US RUE: Occlusion of the cephalic vein. -US LE b/L: No DVT - PO pantoprazole. LINES: - Utilize peripheral IVs Dispo: Level3 Physician Leslie Hoffman MD Nov 19, 2016 13:50
--- NOTE | 2016-11-19 14:56 | HHI.PR ---
Subjective Remarks 66 YOWM with AMS, sz, renal insuff Sedated with Versed 10 mg /hr at BS On Fi02 35% No new changes Objective Vital Signs Vital Signs Date Time Temp Pulse Resp B/P (MAP) Pulse Ox O2 Delivery O2 Flow Rate FiO2 11/19/16 14:00 104 11/19/16 12:00 45 11/19/16 12:00 94 11/19/16 12:00 99.0 94 18 129/78 (95) 94 11/19/16 10:12 96 35 11/19/16 10:00 77 11/19/16 08:00 72 11/19/16 08:00 98.5 72 16 108/62 (77) 95 11/19/16 08:00 35 11/19/16 06:00 70 11/19/16 05:12 96 35 11/19/16 04:00 97.2 69 16 103/59 (74) 96 11/19/16 04:00 69 11/19/16 04:00 35 11/19/16 02:00 70 11/19/16 01:56 99 35 11/19/16 00:00 97.5 69 18 106/65 (79) 98 11/19/16 00:00 72 11/19/16 00:00 35 11/18/16 23:05 99 35 11/18/16 22:00 68 11/18/16 20:57 100 35 11/18/16 20:00 96.9 66 14 98/61 (73) 99 11/18/16 20:00 35 11/18/16 20:00 66 11/18/16 18:00 66 11/18/16 16:43 98 35 11/18/16 16:00 67 11/18/16 16:00 97.8 67 11 94/54 (67) 98 11/18/16 16:00 35 I/O 11/18/16 11/18/16 11/18/16 11/19/16 11/19/16 11/19/16 07:00 15:00 23:00 07:00 15:00 23:00 Intake Total 1462 ml 260 ml 2260 ml 1865 ml 763 ml Output Total 1250 ml 1350 ml 1950 ml Balance 212 ml 260 ml 910 ml -85 ml 763 ml IV Total 262 ml 260 ml 760 ml 763 ml Tube Feeding 550 ml 665 ml Tube Irrigant 1200 ml 50 ml 1200 ml Other 900 ml Output Urine Total 600 ml 1250 ml 1600 ml Stool Total 650 ml 100 ml 350 ml Result Diagram: 11/19/1640011/19/16400 Objective Remarks GENERAL: WBWN male, unresponsive SKIN: Warm and dry. HEAD: Normocephalic. EYES: No scleral icterus. No injection or drainage. NECK: Supple, trachea midline. No JVD or lymphadenopathy. CARDIOVASCULAR: Regular rate and rhythm without murmurs, gallops, or rubs. RESPIRATORY: Breath sounds equal bilaterally. No accessory muscle use. GASTROINTESTINAL: Abdomen soft, non-tender, nondistended. MUSCULOSKELETAL: No cyanosis, or edema. BACK: Nontender without obvious deformity. No CVA tenderness. A/P Assessment and Plan AMS SZ disorder Renal insuff ? Cerebritis RF, on vent PLAN Vent Support, cont CPAP as tolerated Anti sz meds per Neuro Monitor renal functions Neuro following pt. Sedation with versed and Diprivan DW , planning withdrawl of life support in AM DNR Stanley Malhotra MD Nov 19, 2016 14:56
[2016-11-19] MEDS: ONDANSETRON HCL 4 MG/2 ML VIAL IV PRN (15:00)
[2016-11-19] MEDS: [UNRECOGNIZED DRUG - OTHER] T-DERMAL SCH (15:46)
[2016-11-19] MEDS: cloNIDine HCL 0.1 MG/24 HR PATCH T-DERMAL SCH (15:46)
[2016-11-19] MEDS: ARTIFICIAL TEARS OPTH SOLN 15 ML BTL EACH EYE SCH (17:30)
[2016-11-20] VITALS (16 sets, daily range): BP systolic 96–113; BP diastolic 55–65; PULSE 84–101; RESP 16–22; TEMP 99.1–100.5; O2SAT 65–100
[2016-11-20] MEDS: methylPREDNISolone SOD SUCC 125 MG/2 ML VIAL IV SCH ×2 (01:43→08:46)
[2016-11-20] MEDS: VANCOMYCIN 500 MG VIAL (FOR ORAL USE ONLY) PO SCH ×3 (01:43→11:29)
[2016-11-20] MEDS: FOSPHENYTOIN INJ 200 MGPE in SODIUM CHLORIDE 0.9% INJ 50 ML IV SCH ×3 (01:43→11:31)
[2016-11-20] MEDS: VALPROATE INJ 750 MG in SODIUM CHLORIDE 0.9% INJ 100 ML IV SCH ×6 (01:43→23:51)
[2016-11-20] MEDS: PROPOFOL 1000 MG/100 ML INJ 100 ML IV PRN ×2 (01:55→09:40)
[2016-11-20] MEDS: FREE WATER G-TUBE SCH ×4 (04:00→11:32)
[2016-11-20] MEDS: LACOSAMIDE INJ 100 MG in SODIUM CHLORIDE 0.9% INJ 100 ML IV SCH ×3 (04:20→20:41)
[2016-11-20] MEDS: INSULIN NovoLIN REGULAR SUPPLEMENTAL SCALE SQ SCH ×2 (04:21→11:00)
[2016-11-20 05:45] LABS: HEMATOCRIT 32.3 % (39.0-51.0); MEAN CELL VOLUME 95.9 FL (80.0-100.0); MEAN CORPUSCULAR HEMOGLOBIN 31.2 PG (27.0-34.0); MEAN CORPUSCULAR HGB CONC 32.5 % (32.0-36.0); PLATELET COUNT 181 TH/MM3 (150-450); RED BLOOD COUNT 3.37 MIL/MM3 (4.50-5.90); RED CELL DISTRIBUTION WIDTH 18.2 % (11.6-17.2); REVIEW FLAG FINAL; WHITE BLOOD COUNT 7.5 TH/MM3 (4.0-11.0)
[2016-11-20 06:06] LABS: BICARBONATE 26.5 MEQ/L (21.0-32.0); MAGNESIUM 2.2 MG/DL (1.5-2.5); POTASSIUM 4.1 MEQ/L (3.5-5.1)
[2016-11-20 06:24] LABS: CALCIUM-PROTEIN CORRECTED 7.5 MG/DL (8.5-10.1)
[2016-11-20] MEDS: ENOXAPARIN SODIUM 40 MG/0.4 ML SYRINGE SQ SCH (08:39)
[2016-11-20] MEDS: DOCUSATE SODIUM 100 MG CAP PO SCH (08:46)
[2016-11-20] MEDS: PANTOPRAZOLE SOD 40 MG DELAYED RELEASE TAB PO SCH (08:46)
[2016-11-20] MEDS: FUROSEMIDE 40 MG/4 ML VIAL IV PUSH SCH (08:49)
[2016-11-20] MEDS: LACTULOSE SYRUP 20 GM/30 ML CUP PO SCH (08:49)
[2016-11-20] MEDS: SODIUM CHLORIDE 0.9% FLUSH 5 ML FLUSH IVF SCH ×2 (08:53→21:00)
[2016-11-20] MEDS: INSULIN DETEMIR 100 UNITS/ML VIAL SQ SCH (08:53)
[2016-11-20] MEDS: CHLORHEXIDINE 0.12% (ORAL KIT) 15 ML CUP MT SCH (08:55)
[2016-11-20] MEDS: levETIRAcetam INJ 500 MG in SODIUM CHLORIDE 0.9% INJ 100 ML IV SCH ×2 (08:58→20:00)
[2016-11-20] MEDS: ARTIFICIAL TEARS OPTH SOLN 15 ML BTL EACH EYE SCH (09:41)
--- NOTE | 2016-11-20 11:08 | HHI.HCPN ---
Reason for visit a. To assist with evaluation and management of symptoms including: pain; dyspnea; encephalopathy; edema b. To assist medical decision maker(s) with: better understanding of current medical conditions; weighing benefits/burdens of medical treatment options; making medical treatment decisions. . Subjective/Interval History Patient seen and examined in ICU. Discussed with nurse, Francisca. Patient remains sedated on mech vent. Nurse reports vomiting overnight, tube feeding on hold. Tmax 100.4. Labs stable. Awaiting arrival of to further clarify goals. No significant clinical change or improvement. Overall poor prognosis. . Family/friend interactions Met with and 2 sons. They have decided to proceed with withdrawal of life support. Anticipatory guidance provided regarding withdrawal life support. Questions answered. Family verbalizes desire for comfort measures and is very concerned that patient "not be allowed to suffer." Reviewed plan for symptom management and family agrees with plan of care. Discussed with Dr. Smyth and left message for Dr. Branham to notify of family decision. . Advance Directives Living Will: Never completed Health Care Surrogate: Never completed Durable Power of Pumper Gager: Never completed Advance Directive Specifics Date completed: Patient has never completed advance directives . Health Care Surrogate(s): There is no written designation of health care surrogate. . Documented care wishes: There is no written documentation of health care goals or preferences . Significant change in goals: NO CODE. Family has elected to proceed with withdrawal of life support and transition to comfort focused care. . Objective Vital Signs Date Time Temp Pulse Resp B/P (MAP) Pulse Ox O2 Delivery O2 Flow Rate FiO2 11/20/16 08:11 100 40 11/20/16 06:00 94 11/20/16 04:24 96 40 11/20/16 04:00 92 11/20/16 04:00 40 11/20/16 04:00 99.1 93 16 113/65 (81) 98 11/20/16 02:00 84 11/20/16 01:40 96 40 11/20/16 00:00 40 11/20/16 00:00 99.4 85 17 96/57 (70) 96 11/20/16 00:00 84 11/19/16 22:30 96 40 11/19/16 22:00 85 11/19/16 20:50 98 40 11/19/16 20:00 100.0 90 16 86/51 (63) 93 11/19/16 20:00 45 11/19/16 20:00 86 11/19/16 18:00 89 11/19/16 16:00 93 11/19/16 16:00 45 11/19/16 16:00 100.4 93 21 91/55 (67) 93 11/19/16 15:23 93 45 11/19/16 14:00 104 11/19/16 12:00 45 11/19/16 12:00 94 11/19/16 12:00 99.0 94 18 129/78 (95) 94 Intake & Output 11/20/16 11/20/16 07:00 19:00 Intake Total 600 ml Output Total 950 ml Balance -350 ml Tube Feeding 0 ml Other 600 ml Output Urine Total 450 ml Stool Total 500 ml Physical Exam CONSTITUTIONAL/GENERAL: This is an adequately nourished patient with generalized edema, sedated on mech vent. TUBES/LINES/DRAINS: Peripheral IV; ETT, nasogastric tube; sparrow catheter; soft wrist restraints; rectal tube; SCDs SKIN: No jaundice. EYES: Eyes closed. CARDIOVASCULAR: Regular rate and rhythm on monitor. RESPIRATORY/CHEST: Symmetric, unlabored respirations on vent. GASTROINTESTINAL: Abdomen soft, nondistended. GENITOURINARY: Without palpable bladder distension. Sparrow catheter in place. Scrotal and penile edema is present. MUSCULOSKELETAL: Extremities without clubbing, cyanosis. Significant bilateral upper extremity edema, weeping edema. NEUROLOGICAL: Sedated, unresponsive. PSYCHIATRIC: Unable to assess due to level of responsiveness. . Diagnostic Tests Laboratory Laboratory Tests Test 11/18/16 04:47 11/19/16 04:01 11/20/16 04:13 White Blood Count 12.0 TH/MM3 (4.0-11.0) 8.1 TH/MM3 (4.0-11.0) 7.5 TH/MM3 (4.0-11.0) Red Blood Count 3.16 MIL/MM3 (4.50-5.90) 3.38 MIL/MM3 (4.50-5.90) 3.37 MIL/MM3 (4.50-5.90) Hemoglobin 9.8 GM/DL (13.0-17.0) 10.7 GM/DL (13.0-17.0) 10.5 GM/DL (13.0-17.0) Hematocrit 30.4 % (39.0-51.0) 32.4 % (39.0-51.0) 32.3 % (39.0-51.0) Mean Corpuscular Volume 96.1 FL (80.0-100.0) 96.0 FL (80.0-100.0) 95.9 FL (80.0-100.0) Mean Corpuscular Hemoglobin 30.9 PG (27.0-34.0) 31.7 PG (27.0-34.0) 31.2 PG (27.0-34.0) Mean Corpuscular Hemoglobin Concent 32.2 % (32.0-36.0) 33.0 % (32.0-36.0) 32.5 % (32.0-36.0) Red Cell Distribution Width 14.9 % (11.6-17.2) 17.9 % (11.6-17.2) 18.2 % (11.6-17.2) Platelet Count 166 TH/MM3 (150-450) 175 TH/MM3 (150-450) 181 TH/MM3 (150-450) Mean Platelet Volume 9.4 FL (7.0-11.0) 9.2 FL (7.0-11.0) 9.0 FL (7.0-11.0) Blood Urea Nitrogen 43 MG/DL (7-18) 40 MG/DL (7-18) 52 MG/DL (7-18) Creatinine 0.76 MG/DL (0.60-1.30) 0.80 MG/DL (0.60-1.30) 1.01 MG/DL (0.60-1.30) Random Glucose 115 MG/DL (74-106) 125 MG/DL (74-106) 169 MG/DL (74-106) Total Protein 6.3 GM/DL (6.4-8.2) 6.2 GM/DL (6.4-8.2) Calcium Level 7.2 MG/DL (8.5-10.1) 7.6 MG/DL (8.5-10.1) 7.0 MG/DL (8.5-10.1) Sodium Level 146 MEQ/L (136-145) 144 MEQ/L (136-145) 146 MEQ/L (136-145) Potassium Level 4.0 MEQ/L (3.5-5.1) 4.4 MEQ/L (3.5-5.1) 4.1 MEQ/L (3.5-5.1) Chloride Level 111 MEQ/L (98-107) 109 MEQ/L (98-107) 110 MEQ/L (98-107) Carbon Dioxide Level 26.1 MEQ/L (21.0-32.0) 26.7 MEQ/L (21.0-32.0) 26.5 MEQ/L (21.0-32.0) Anion Gap 9 MEQ/L (5-15) 8 MEQ/L (5-15) 10 MEQ/L (5-15) Estimat Glomerular Filtration Rate 102 ML/MIN (>89) 96 ML/MIN (>89) 73 ML/MIN (>89) Protein Corrected Calcium 7.6 MG/DL (8.5-10.1) 7.5 MG/DL (8.5-10.1) Phosphorus Level 4.2 MG/DL (2.5-4.9) Magnesium Level 2.2 MG/DL (1.5-2.5) Result Diagram: 11/20/16 0413 11/20/16 0413 Microbiology Microbiology Date/Time Source Procedure Growth Status 11/11/16 01:37 Blood Peripheral Aerobic Blood Culture - Final NO GROWTH IN 5 DAYS Complete 11/11/16 01:37 Blood Peripheral Anaerobic Blood Culture - Final NO GROWTH IN 5 DAYS Complete 10/26/16 13:00 Cerebral Spinal Fluid Lumbar Puncture Fungal Smear - Final NO FUNGAL ELEMENTS SEEN. Resulted 10/26/16 13:00 Cerebral Spinal Fluid Lumbar Puncture Fungal Culture - Preliminary NO GROWTH IN 3 WEEKS Resulted 11/05/16 09:15 Sputum Endotracheal Gram Stain - Final Complete 11/05/16 09:15 Sputum Culture - Final Staphylococcus Aureus Escherichia Coli Enterobacter Aerogenes Complete 11/06/16 03:00 Urine Catheterized Urine Urine Culture - Final NO GROWTH IN 48 HOURS. Complete Imaging Last Impressions Chest X-Ray 11/15/16 0600 Signed Impressions: Service Date/Time: Tuesday, November 15, 2016 04:21 - CONCLUSION: 1. Stable basilar airspace disease and probable small effusions. Support apparatus unchanged. Kit Cates MD Brain MRI 11/15/16 0000 Signed Impressions: Service Date/Time: Tuesday, November 15, 2016 15:53 - CONCLUSION: Stable MRI of the brain with subtle increased signal pinto-white matter junction right parietal and occipital regions. Rahat Frey MD FACR Upper Extremity Ultrasound 11/04/16 0000 Signed Impressions: Service Date/Time: Friday, November 04, 2016 18:24 - CONCLUSION: Occlusion of the cephalic vein. The other veins are patent. Everett Block MD Lower Extremity Ultrasound 11/03/16 0000 Signed Impressions: Service Date/Time: Thursday, November 03, 2016 15:19 - CONCLUSION: Negative for deep venous thrombosis. Rahat Frey MD FACR Chest CT 11/01/16 0000 Signed Impressions: Service Date/Time: Tuesday, November 01, 2016 15:59 - CONCLUSION: Minimal nonspecific adenopathy the bibasilar parenchymal changes worse on the left. Rahat Frey MD FACR Abdomen/Pelvis CT 11/01/16 0000 Signed Impressions: Service Date/Time: Tuesday, November 01, 2016 16:04 - CONCLUSION: Nonspecific minimal bowel wall thickening transverse colon. There are no ancillary signs of malignancy. Rahat Frey MD FACR Lumbar Puncture Fluoroscopy 10/26/16 0000 Signed Impressions: Service Date/Time: October 12:24 - CONCLUSION: Uncomplicated fluoroscopically guided cervical puncture. Kranthi Lloyd MD . Procedures * Intubation/mechanical ventilation . Assessment and Plan Disease Oriented Problem List: (1) Major neurocognitive disorder (2) Diabetes (3) Status epilepticus (4) Thrombocytopenia (5) Hypoalbuminemia Symptom Scale: (1) Pain 0-10 Scale: Unable to quantify Comment: sources of pain might include the following: Prolonged bedbound status ; Sparrow catheter; significant edema; orotracheal tube; nasogastric tube; vascular access lines. No known pre-hospitalization pain syndromes. . (2) Dyspnea 0-10 Scale: Unable to quantify Comment: Controlled with mechanical ventilation . (3) Encephalopathy 0-10 Scale: 10 Comment: Patient unresponsive . (4) Status epilepticus 0-10 Scale: Unable to quantify Pertinent Non-Medical Issues Psychosocial: ([place]) spends day at bedside. She has CHF, PE, bad leg. Unable to drive. Two sons locally ([place] is a [employer] office). Spiritual: [employer]. Appreciates country printer visits. Legal: No advance directives Ethical issues impacting care: No ethical issues impacting care at this time. . Important Contacts * Liberty Luong (spouse) [phone]; [phone] . 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 Overall poor prognosis. . Code Status: No Code Plan * Decision making: The patient is incapacitated to make his own health care decisions, unlikely that he will regain capacity. There is no written designation of health care surrogate. According to [place] statutes, health care proxy decision making falls to the patient's spouse. * NO CODE. * 11/20/16 - Family has elected to transition to comfort focused care and to proceed with withdrawal of life support. They are waiting for additional family and country printer to arrive. Anticipatory guidance provided. Orders written. Discussed with Dr. Smyth and nurse, Francisca. Left message for Dr. Branham to notify of family decision. * Exhibits B & C on chart. * 11/17/16: 4pm: Spoke with at bedside, she is asking questions about , brain biopsy, comfort measures and what happens after patient dies. Spoke with medical appliance maker who indicates this would not be ME case and they would not do autopsy. Advised autopsy could be pursued by family through [facility] @ [phone], average cost $[phone], uncertain if they would just perform brain biopsy. Called CDC that reports Creutzfeldt-Juanjo disease being reprovable varies by state. Called [place] [facility] ( [phone]) who tells me CJD is reportable in [place], they took patient information understanding this is likely diagnosis. Number for [facility] ([phone]) given should we have additional questions or needs. She also indicates family may be able to get assistance with brain biopsy after through [facility] [phone]. Information provided to Mrs. Luong, she is very appreciative. She verbalizes financial concerns about expense. Provided information regarding Indigent Burial/Cremation services should she need assistance, as well as a home list. Also provided additional anticipatory guidance regarding withdrawal of life support as is asking additional questions about what happens if they elect comfort focused care. * Palliative care will continue to follow to assist with symptom management and to further clarify goals of medical treatment as the clinical course evolves. We will also try to support the patient's spouse. Symptoms: Orders written for transition to comfort measures and compassionate withdrawal of life support. * Pain: There are no known prehospitalization pain syndromes. Current sources of pain might include prolonged bedbound status; orotracheal intubation; nasogastric intubation; Sparrow catheter; rectal tube; soft wrist restraints; extensive edema. It is unclear to what extent the patient is able to experience pain. * Dyspnea: Dyspnea is well controlled with mechanical ventilation. * Edema: Patient has a significant positive fluid balance. Patient is being diuresed currently. * Encephalopathy: Patient with likely Creutzfeldt- Ministerio disease as infectious, viral and autoimmune disease has been ruled out by process of elimination. . . Attestation To help prompt me to consider important information that might be impacting today's encounter and assessment, information from prior notes written by myself or my colleagues may have been "brought forward" into today's note. My signature on this note, however, is an attestation that I personally performed the exam, history, and/or decision-making noted today, and, unless otherwise indicated, the interactions with patient, family, and staff as well as the review of records all occurred today. I also attest that the listed assessment and stated plan reflect my best clinical judgment today based on the combination of historical information, prior notes, and today's exam/ interactions. When time spent is documented, it refers only to time spent today by the signer, or if indicated, combined time spent today by collaborating physician/nurse practitioner. Mari Bobo Nov 20, 2016 11:08
--- NOTE | 2016-11-20 12:43 | HHI.CCPN ---
Subjective Remarks/Hospital Course This is a 66-year-old man with history of diabetes, hypertension, dyslipidemia who about a month ago started having difficulty with balance with shuffling type of gait and resting tremor along with recent cognitive decline as well. His initial admission was on 10/06/16, as initial workup was negative patient was admitted to psych unit on 10/06/16 for suicidal ideations and altered mental status. He was evaluated by neurology Dr Branham, possibility of Parkinsonian symptoms and vitamin B 12 deficiency was entertained, but there was no improvement with treatment. He was re admitted to hospitalist service with worsening mental status on 10/25/16. Per Dr. Branham, MRI showed possible cerebritis. Differential included Creutzfeldt-Ministerio. But 14-3-3 protein for Creutzfeldt-Ministerio was negative. Currently on acyclovir for possibility of viral cerebritis. EEG done 10/24/16 showed generalized epileptiform activity. Patient was placed on Cerebyx, Keppra. Keppra was DCd due to rash and currently patient is on Cerebyx and Vimpat. Repeat EEGs from 10/31/16 and today shows continued seizure activity/subclinical seizures. Patient continues to be encephalopathic not responding. EEG today shows continued seizure activity indicating status epilepticus. Critical-care medicine was consulted by Dr. Branham today for continuous Versed infusion after intubation I evaluated the patient in ICU. He barely opens his eyes to painful stimuli localizes with right upper extremity withdrawal of any other extremities. Discussed with Dr. Branham multiple times. In his opinion, this appears to be a autoimmune encephalitis less likely to be infectious. Anti-NMDA receptor antibody ordered. Per Dr. Branham D/D possibly paraneoplastic, vasculitic or NMDA- receptor encephalitis. Currently patient is on IV Solu-Medrol and IVIG had been ordered by Dr. Branham. Initiate continuous EEG monitoring. TTP/HUS unlikely, but patient has E Coli UTI, I have asked for peripheral smear review by pathologist 11/02: remains encephalopathic, but also very deeply sedated on versed drip. continuous EEG with intermittent sharp spikes that correspond with rhythmic neck movement. neurology adding additional anti-epileptics. peripheral smear without Schistocytes. currently receiving IVIG for possible au immune encephalopathy. 11/03 Patient remains sedated and intubated. Afebrile. 11/04 Patient remains intubated and sedated with Versed 10mg/hr. Tmax 100.6 11/05 No events overnight. On Versed drip for sedation, no seizures overnight. Patient is on continuous EEG monitoring. T: 101.0 last night. 11/06 Patient is sedated with Versed and Fentanyl. No seizures overnight. Afebrile. 11/07 Patient remains sedated and intubated. Afebrile. No recurrent seizures overnight. 11/08 TMax 99.6. The patient was noted to be on sedation vacation, EEG was being performed patient was noted to have subclinical seizures persistent. The patient was immediately bolused with 5 mg IV.Versed infusion continued at 8 mg/ h noted cessation of subclinical seizures and the patient continues to be monitored via EEG. Noted phenytoin and valproic acid levels were noted subtherapeutic today. 11/09 TMax 100.7. No further sedation holiday per Neurology due to ongoing subclinical seizure activity.the patient continues on AED's. AED levels pending in am.The patient remained on continuous EEG monitoring throughout the night with cessation of subclinical seizure activity. 11/10: No acute events overnight. EEG performed today. Propofol infusion added to medication regimen.\ 11/12: Maximum 101.9. Currently afebrile. Tolerating tube feeding. Positive BM. 11/13: Moved from room 526 to room 500 due to leaking window. Early afebrile. Diagnosed with C. difficile EPID O27 negative. Started on oral vancomycin per infectious disease. Otherwise no changes overnight. 11/14: The patient continues on deep sedation secondary to subclinical seizure activity, per Dr. Branham recommendation. Continues on Versed 10 mg, propofol 25 mcgs. Discussed extensively possibility of tracheostomy with today. Further discussion planned tomorrow, after results from EEG and repeat MRI are obtained, to assess for continued subclinical seizure activity. 11/15: no improvements in mental status. will get palliative involved. poor prognosis. still seizes with any lightening of deep sedation. 11/16: No changes or improvements. MRI with persistence of subtle changes in the temporal and occipital regions. Highest on the differential is spongiform encephalitis at this point per neurology. Neuro considering possible brain biopsy. Palliative involved. 11/17: no improvements. long family discussion today. family will discuss the options of aggressive care with trach/peg and placement vs. palliation and comfort measures. Subjective 11/18: no neuro changes. family still deciding on their goals of care. for now, still aggressive. 11/19: No acute events overnight. No neurological improvements. The patient continues on Diprivan and Versed infusion per neurology's recommendations. 11/20: No acute issues during the night. No neurological changes. Family has decided for withdrawal of care/comfort care measures today. Palliative care following. Objective Vital Signs Date Time Temp Pulse Resp B/P (MAP) Pulse Ox O2 Delivery O2 Flow Rate FiO2 11/20/16 08:11 100 40 11/20/16 06:00 94 11/20/16 04:00 99.1 16 113/65 (81) 11/16/16 17:05 Ventilator Intake and Output 11/20/16 11/20/16 11/21/16 08:00 16:00 00:00 Intake Total 600 ml Output Total 950 ml Balance -350 ml Result Diagram: 11/20/16 04111/20/16 0413 Imaging Last Impressions Chest X-Ray 11/14/16 0600 Signed Impressions: Service Date/Time: Monday, November 14, 2016 04:59 - CONCLUSION: 1. Basilar airspace disease similar to November 12. Endotracheal tube and nasogastric tube in satisfactory position. Kit Cates MD Brain MRI 11/07/16 0000 Signed Impressions: Service Date/Time: Monday, November 07, 2016 11:17 - CONCLUSION: 1. Continued subtle signal abnormality involving the pinto-white junction in the right occipital and right parietal regions. There has been no significant change when compared to the prior exam. Kranthi Lloyd MD Upper Extremity Ultrasound 11/04/16 0000 Signed Impressions: Service Date/Time: Friday, November 04, 2016 18:24 - CONCLUSION: Occlusion of the cephalic vein. The other veins are patent. Everett Block MD Lower Extremity Ultrasound 11/03/16 0000 Signed Impressions: Service Date/Time: Thursday, November 03, 2016 15:19 - CONCLUSION: Negative for deep venous thrombosis. Rahat Frey MD FACR Chest CT 11/01/16 0000 Signed Impressions: Service Date/Time: Tuesday, November 01, 2016 15:59 - CONCLUSION: Minimal nonspecific adenopathy the bibasilar parenchymal changes worse on the left. Rahat Frey MD FACR Abdomen/Pelvis CT 11/01/16 0000 Signed Impressions: Service Date/Time: Tuesday, November 01, 2016 16:04 - CONCLUSION: Nonspecific minimal bowel wall thickening transverse colon. There are no ancillary signs of malignancy. Rahat Frey MD FACR Lumbar Puncture Fluoroscopy 10/26/16 0000 Signed Impressions: Service Date/Time: October 12:24 - CONCLUSION: Uncomplicated fluoroscopically guided cervical puncture. Kranthi Lloyd MD Last Impressions Chest X-Ray 11/12/16 0600 Signed Impressions: Service Date/Time: Saturday, November 12, 2016 03:47 - CONCLUSION: Bilateral perihilar infiltrates and right small to moderate pleural effusion, all slightly worse in the interim. Madhav Oneil MD Brain MRI 11/07/16 0000 Signed Impressions: Service Date/Time: Monday, November 07, 2016 11:17 - CONCLUSION: 1. Continued subtle signal abnormality involving the pinto-white junction in the right occipital and right parietal regions. There has been no significant change when compared to the prior exam. Kranthi Lloyd MD Upper Extremity Ultrasound 11/04/16 0000 Signed Impressions: Service Date/Time: Friday, November 04, 2016 18:24 - CONCLUSION: Occlusion of the cephalic vein. The other veins are patent. Everett Block MD Lower Extremity Ultrasound 11/03/16 0000 Signed Impressions: Service Date/Time: Thursday, November 03, 2016 15:19 - CONCLUSION: Negative for deep venous thrombosis. Rahat Frey MD FACR Chest CT 11/01/16 0000 Signed Impressions: Service Date/Time: Tuesday, November 01, 2016 15:59 - CONCLUSION: Minimal nonspecific adenopathy the bibasilar parenchymal changes worse on the left. Rahat Frey MD FACR Abdomen/Pelvis CT 11/01/16 0000 Signed Impressions: Service Date/Time: Tuesday, November 01, 2016 16:04 - CONCLUSION: Nonspecific minimal bowel wall thickening transverse colon. There are no ancillary signs of malignancy. Rahat Frey MD FACR Lumbar Puncture Fluoroscopy 10/26/16 0000 Signed Impressions: Service Date/Time: October 12:24 - CONCLUSION: Uncomplicated fluoroscopically guided cervical puncture. Kranthi Lloyd MD Objective Remarks GENERAL: 66-year-old male, lying in bed, intubated, and sedated. SKIN: Warm and dry. No lesions noted. HEENT: Normocephalic. Pupils equal 2 mm reactive. orotracheally intubated CARDIOVASCULAR: RRR. Telemetry sinus rhythm RESPIRATORY:. Symmetrical excursion. intubated. GASTROINTESTINAL: Abdomen soft, non-tender, nondistended MUSCULOSKELETAL: No obvious deformities. No significant peripheral edema. NEUROLOGICAL: GCS 3T.Pupils 5 mm bilaterally and reactive. A/P Assessment and Plan Assessment: 66yM with acute encephalopathy of unknown etiology. All tests negative at this point. Prognosis would be poor. palliative on board. If goals of care remain aggressive, then we need to pursue trach and peg. CJD would have a terminal prognosis, as would likely any diagnosis at this point going forward. Family does not want to pursue brain biopsy, but will decide on aggressive measures vs. palliative withdraw. 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 Goal of RASS -4 -10/31 MRI brain: Subtle signal abdomen only at the pinto-white junction in the right hemisphere as above. The findings may reflect encephalitis or cerebritis -11/07 repeat MRI brain continued subtle signal abnormality involving pinto/white matter junction in right occiput total and right parietal regions. No change from previous MRI -11/10 Continuous EEG, noted subclinical appears worse than 11/08 EEG - Continue IV fosphenytoin 200mg Q6, lacosamide 100 mg every 6 hours valproic acid 600 mill grams IV every 4 hours Recheck levels 11/14 - Workup negative for infectious encephalitis - Ongoing workup for autoimmune encephalitis, anti-NMDA receptor antibody negative. - all paraneoplastic antibodies and anti nmda antibody negative. - Repeat MRI unchanged. - Continue IV Solu-Medrol 60 mg IV Q6 per Dr. Branham/neurology - TTP/HUS unlikely given lack of schistocytes on peripheral smear 11/01 -Currently holding all sedation vacations per Dr. Branham, due to active seizure activity RESP: Acute hypoxic and hypercarbic respiratory failure [facility] 16//03/09/34 Albuterol/ipratropium every 6 hours and when necessary - HOLD SBT / CPAP trials at this time, maintain sedation secondary to active seizure activity -CXR 11/12: Moderate right pleural effusion, atelectasis. CV: -Monitor HR and BP keep MAP>65mmHg Not requiring any interventions and/or vasopressors at the present time Continue clonidine patch 0.1 mg every week. GI: Hypoalbuminemia -Continue tube feeds- Glucerna 1.5 @ 50ml/hr @ goal Pantoprazole 40 mg IV daily for GI prophylaxis - Bowel Regimen with docusate sodium/senna twice a day on hold C. difficile positive-by mouth vancomycin lactulose 15 cc every 8 hours Renal/: Acute kidney injury- resolved. Hypocalcemia - Monitor renal function, - electrolytes replacement as needed per ICU electrolyte protocol Currently stable ID: Encephalitis is probably noninfectious E Coli UTI E. Aerogenes Escherichia coli/staph aureus bacteremia Pneumonia C. difficile Continue with abx (Cefepime, levofloxacin) ID is following monitor for signs of infections ( Fever, WBC) - Blood cultures 11/11 - no growth - Blood,sputum from 11/05: Escherichia coli, sputum cx 11/05: Escherichia coli, Staph Aureus, Enterobacter Aerogenes -Urine cx 10/30: Escherichia coli - TTP/HUS unlikely given negative peripheral smear for schistocytes -ID following-Dr. Mackay. Discontinued cefepime 11/12. Restarted instead on ceftriaxone 11/12. Currently on levofloxacin 500 mg daily and until 11/18. HEME: Thrombocytopenia Normocytic anemia Superficial thrombus cephalic vein/right - Monitor CBC, CMP, coags, Fibrinogen level 365 11/05, Heme was called and currently signed off -HIT panel is negative No indications for transfusion of blood product at this time ENDO: Type 2 diabetes Hyperglycemia secondary steroids Holding metformin 500 mg twice a day/home medication - Electrolyte replacement per protocol - SSI (High scale Novulin R) Levemir 14 units BID MSK: Wound care consult for eschar noted sacral lovh-fragkl-gy recommendations PROPH: - Bilateral lower extremity SCDs. Anoxic. SQ -US RUE: Occlusion of the cephalic vein. -US LE b/L: No DVT - PO pantoprazole. LINES: - Utilize peripheral IVs Dispo: Extensive discussion with family and palliative care team, and ICURN @ bedside. Plan for comfort care measures and withdrawal of care today. All questions answered. Physician Leslie Hoffman MD Nov 20, 2016 12:42
[2016-11-20] MEDS ORDERED: HYOSCYAMINE 0.125 MG TAB PO/SL ONE (12:45)
[2016-11-20] MEDS ORDERED: MORPHINE SULFATE 8 MG/ML INJ IV PUSH ONE (12:45)
[2016-11-20] MEDS ORDERED: HYOSCYAMINE 0.125 MG TAB SL PRN (12:45)
[2016-11-20] MEDS ORDERED: LORazepam 2 MG/ML VIAL IV PUSH ONE ×2 (12:45→13:15)
[2016-11-20] MEDS ORDERED: MIDAZOLAM 100 MG/100 ML INJ 100 ML IV PRN (12:45)
[2016-11-20] MEDS ORDERED: MORPHINE SULFATE 4 MG/ML INJ IV PUSH PRN (13:15)
[2016-11-20] MEDS ORDERED: MORPHINE SULFATE 4 MG/ML INJ IV PUSH ONE (13:15)
[2016-11-20] MEDS ORDERED: MORPHINE SULFATE 8 MG/ML INJ IV PUSH PRN (13:15)
[2016-11-20] MEDS ORDERED: ACETAMINOPHEN 650 MG SUPP RECTAL PRN (13:15)
[2016-11-20] MEDS ORDERED: LORazepam 2 MG/ML VIAL IV PUSH PRN ×3 (13:15)
[2016-11-20] MEDS ORDERED: FUROSEMIDE 20 MG/2 ML VIAL IV PUSH PRN (13:15)
--- NOTE | 2016-11-20 18:43 | HHI.PR ---
Subjective Remarks 66 YOWM with AMS, sz, renal insuff Extubated per family request On RA at BS Objective Vital Signs Vital Signs Date Time Temp Pulse Resp B/P (MAP) Pulse Ox O2 Delivery O2 Flow Rate FiO2 11/20/16 15:55 Room Air 11/20/16 12:30 100 40 11/20/16 08:11 100 40 11/20/16 06:00 94 11/20/16 04:24 96 40 11/20/16 04:00 92 11/20/16 04:00 40 11/20/16 04:00 99.1 93 16 113/65 (81) 98 11/20/16 02:00 84 11/20/16 01:40 96 40 11/20/16 00:00 40 11/20/16 00:00 99.4 85 17 96/57 (70) 96 11/20/16 00:00 84 11/19/16 22:30 96 40 11/19/16 22:00 85 11/19/16 20:50 98 40 11/19/16 20:00 100.0 90 16 86/51 (63) 93 11/19/16 20:00 45 11/19/16 20:00 86 I/O 11/19/16 11/19/16 11/19/16 11/20/16 11/20/16 11/20/16 07:00 15:00 23:00 07:00 15:00 23:00 Intake Total 1865 ml 763 ml 1628 ml 600 ml Output Total 1950 ml 2250 ml 950 ml Balance -85 ml 763 ml -622 ml -350 ml IV Total 763 ml 1141 ml Tube Feeding 665 ml 487 ml 0 ml Tube Irrigant 1200 ml Other 600 ml Output Urine Total 1600 ml 1650 ml 450 ml Stool Total 350 ml 600 ml 500 ml Result Diagram: 11/20/1641211/20/16412 Objective Remarks GENERAL: WBWN male, unresponsive SKIN: Warm and dry. HEAD: Normocephalic. EYES: No scleral icterus. No injection or drainage. NECK: Supple, trachea midline. No JVD or lymphadenopathy. CARDIOVASCULAR: Regular rate and rhythm without murmurs, gallops, or rubs. RESPIRATORY: Breath sounds equal bilaterally. No accessory muscle use. GASTROINTESTINAL: Abdomen soft, non-tender, nondistended. MUSCULOSKELETAL: No cyanosis, or edema. BACK: Nontender without obvious deformity. No CVA tenderness. A/P Assessment and Plan AMS SZ disorder Renal insuff ? Cerebritis RF, on vent PLAN DW , planning withdrawl of life support in AM DNR Comfort care Palliative care following I will sign off Stanley Malhotra MD Nov 20, 2016 18:43
[2016-11-20] MEDS: LORazepam 2 MG/ML VIAL IV PUSH SCH ×2 (20:40→23:50)
[2016-11-20] MEDS: MORPHINE SULFATE 4 MG/ML INJ IV PUSH SCH ×2 (20:41→23:51)
[2016-11-20] MEDS: ONDANSETRON HCL 4 MG/2 ML VIAL IV PRN (22:29)
[2016-11-21] VITALS: PULSE 94; PULSE 95; O2SAT 51
[2016-11-21] MEDS: FOSPHENYTOIN INJ 200 MGPE in SODIUM CHLORIDE 0.9% INJ 50 ML IV SCH ×2
--- NOTE | 2016-11-22 06:25 | HHI.DS ---
Summary Note Date of : Nov 21, 2016 Time Of : 0148 Admission Date Oct 24, 2016 at 23:10 Admitting Diagnosis Diagnosis at Time of : (1) GEOVANY (acute kidney injury) ICD Code: N17.9 - Acute kidney failure, unspecified (2) Rapidly progressive dementia ICD Code: F03.90 - Unspecified dementia without behavioral disturbance (3) Diabetes ICD Code: E11.9 - Type 2 diabetes mellitus without complications (4) HTN (hypertension) ICD Code: I10 - Essential (primary) hypertension (5) Rash ICD Code: R21 - Rash and other nonspecific skin eruption Brief History Mr. Luong is a 66 year male who initially presented on 10/08/16 with complaints of dizziness, workup was negative. Patient was then admitted to psych unit for suicidal ideations and altered mental status. He was evaluated by neurology, diagnosed with possible Parkinsonian symptoms and vitamin B 12 deficiency. However symptoms did not improve. MRI of the brain showed increased signal on T2 within the right occipital region possible cerebritis however CSF studies does not support this. EEG showed PLEDs, and with his clinical progression of extrapyramidal features was concerning for Creutzfeldt- Ministerio Disease. He underwent lumbar puncture for CSF studies but not enough sample was obtained to test for Creutzfeldt-Jakcob Disease. Patient discharged from psychiatry to inpatient for further workup. Presently, per patient's , patient acutely became confused in a span of 24 hours. No meaningful recovery since that happened. Patient remains to be a poor historian. He does not follow commands but seems to recognize his . CBC/BMP: 11/20/16 0413 11/20/16 0413 Significant Findings Laboratory Tests Test 11/20/16 04:13 Red Blood Count 3.37 MIL/MM3 (4.50-5.90) Hemoglobin 10.5 GM/DL (13.0-17.0) Hematocrit 32.3 % (39.0-51.0) Red Cell Distribution Width 18.2 % (11.6-17.2) Blood Urea Nitrogen 52 MG/DL (7-18) Random Glucose 169 MG/DL (74-106) Total Protein 6.2 GM/DL (6.4-8.2) Calcium Level 7.0 MG/DL (8.5-10.1) Sodium Level 146 MEQ/L (136-145) Chloride Level 110 MEQ/L (98-107) Estimat Glomerular Filtration Rate 73 ML/MIN (>89) Protein Corrected Calcium 7.5 MG/DL (8.5-10.1) Imaging Last Impressions Chest X-Ray 11/14/16 0600 Signed Impressions: Service Date/Time: Monday, November 14, 2016 04:59 - CONCLUSION: 1. Basilar airspace disease similar to November 12. Endotracheal tube and nasogastric tube in satisfactory position. Kit Cates MD Brain MRI 11/07/16 0000 Signed Impressions: Service Date/Time: Monday, November 07, 2016 11:17 - CONCLUSION: 1. Continued subtle signal abnormality involving the pinto-white junction in the right occipital and right parietal regions. There has been no significant change when compared to the prior exam. Kranthi Lloyd MD Upper Extremity Ultrasound 11/04/16 0000 Signed Impressions: Service Date/Time: Friday, November 04, 2016 18:24 - CONCLUSION: Occlusion of the cephalic vein. The other veins are patent. Everett Block MD Lower Extremity Ultrasound 11/03/16 0000 Signed Impressions: Service Date/Time: Thursday, November 03, 2016 15:19 - CONCLUSION: Negative for deep venous thrombosis. Rahat Frey MD FACR Chest CT 11/01/16 0000 Signed Impressions: Service Date/Time: Tuesday, November 01, 2016 15:59 - CONCLUSION: Minimal nonspecific adenopathy the bibasilar parenchymal changes worse on the left. Rahat Frey MD FACR Abdomen/Pelvis CT 11/01/16 0000 Signed Impressions: Service Date/Time: Tuesday, November 01, 2016 16:04 - CONCLUSION: Nonspecific minimal bowel wall thickening transverse colon. There are no ancillary signs of malignancy. Rahat Frey MD FACR Lumbar Puncture Fluoroscopy 10/26/16 0000 Signed Impressions: Service Date/Time: October 12:24 - CONCLUSION: Uncomplicated fluoroscopically guided cervical puncture. Kranthi Lloyd MD Last Impressions Chest X-Ray 11/12/16 0600 Signed Impressions: Service Date/Time: Saturday, November 12, 2016 03:47 - CONCLUSION: Bilateral perihilar infiltrates and right small to moderate pleural effusion, all slightly worse in the interim. Madhav Oneil MD Brain MRI 11/07/16 0000 Signed Impressions: Service Date/Time: Monday, November 07, 2016 11:17 - CONCLUSION: 1. Continued subtle signal abnormality involving the pinto-white junction in the right occipital and right parietal regions. There has been no significant change when compared to the prior exam. Kranthi Lloyd MD Upper Extremity Ultrasound 11/04/16 Signed Impressions: Service Date/Time: Friday, November 04, 2016 18:24 - CONCLUSION: Occlusion of the cephalic vein. The other veins are patent. Everett Block MD Lower Extremity Ultrasound 11/03/16 0000 Signed Impressions: Service Date/Time: Thursday, November 03, 2016 15:19 - CONCLUSION: Negative for deep venous thrombosis. Rahat Frey MD FACR Chest CT 11/01/16 0000 Signed Impressions: Service Date/Time: Tuesday, November 01, 2016 15:59 - CONCLUSION: Minimal nonspecific adenopathy the bibasilar parenchymal changes worse on the left. Rahat Frey MD FACR Abdomen/Pelvis CT 11/01/16 0000 Signed Impressions: Service Date/Time: Tuesday, November 01, 2016 16:04 - CONCLUSION: Nonspecific minimal bowel wall thickening transverse colon. There are no ancillary signs of malignancy. Rahat Frey MD FACR Lumbar Puncture Fluoroscopy 10/26/16 0000 Signed Impressions: Service Date/Time: October 12:24 - CONCLUSION: Uncomplicated fluoroscopically guided cervical puncture. Kranthi Lloyd MD Hospital Course 11/02: remains encephalopathic, but also very deeply sedated on versed drip. continuous EEG with intermittent sharp spikes that correspond with rhythmic neck movement. neurology adding additional anti-epileptics. peripheral smear without Schistocytes. currently receiving IVIG for possible au immune encephalopathy. 11/03 Patient remains sedated and intubated. Afebrile. 11/04 Patient remains intubated and sedated with Versed 10mg/hr. Tmax 100.6 11/05 No events overnight. On Versed drip for sedation, no seizures overnight. Patient is on continuous EEG monitoring. T: 101.0 last night. 11/06 Patient is sedated with Versed and Fentanyl. No seizures overnight. Afebrile. 11/07 Patient remains sedated and intubated. Afebrile. No recurrent seizures overnight. 11/08 TMax 99.6. The patient was noted to be on sedation vacation, EEG was being performed patient was noted to have subclinical seizures persistent. The patient was immediately bolused with 5 mg IV.Versed infusion continued at 8 mg/ h noted cessation of subclinical seizures and the patient continues to be monitored via EEG. Noted phenytoin and valproic acid levels were noted subtherapeutic today. 11/09 TMax 100.7. No further sedation holiday per Neurology due to ongoing subclinical seizure activity.the patient continues on AED's. AED levels pending in am.The patient remained on continuous EEG monitoring throughout the night with cessation of subclinical seizure activity. 11/10: No acute events overnight. EEG performed today. Propofol infusion added to medication regimen.\ 11/12: Maximum 101.9. Currently afebrile. Tolerating tube feeding. Positive BM. 11/13: Moved from room 526 to room 500 due to leaking window. Early afebrile. Diagnosed with C. difficile EPID O27 negative. Started on oral vancomycin per infectious disease. Otherwise no changes overnight. 11/14: The patient continues on deep sedation secondary to subclinical seizure activity, per Dr. Branham recommendation. Continues on Versed 10 mg, propofol 25 mcgs. Discussed extensively possibility of tracheostomy with today. Further discussion planned tomorrow, after results from EEG and repeat MRI are obtained, to assess for continued subclinical seizure activity. 11/15: no improvements in mental status. will get palliative involved. poor prognosis. still seizes with any lightening of deep sedation. 11/16: No changes or improvements. MRI with persistence of subtle changes in the temporal and occipital regions. Highest on the differential is spongiform encephalitis at this point per neurology. Neuro considering possible brain biopsy. Palliative involved. 11/17: no improvements. long family discussion today. family will discuss the options of aggressive care with trach/peg and placement vs. palliation and comfort measures. Subjective 11/18: no neuro changes. family still deciding on their goals of care. for now, still aggressive. 11/19: No acute events overnight. No neurological improvements. The patient continues on Diprivan and Versed infusion per neurology's recommendations. 11/20: No acute issues during the night. No neurological changes. Family has decided for withdrawal of care/comfort care measures today. Palliative care following. 11/21: With family at bedside comfort care measures instituted, the patient at 0148. Leslie Smyth MD Nov 22, 2016 06:25
== END 2016-11-21 01:48 | disposition expired | DRG 97 ==
LOC: N05A 23:10 → HIMN 10-30 13:00 → HIMW 11-13 00:26
PROVIDERS: ADMIT Internal Medicine; ATTEND Internal Medicine
PROC: 009U3ZX Drainage of Spinal Canal, Percutaneous Approach, Diagnostic (ICD-10-PCS; principal; 2016-10-26)
PROC: B01BZZZ Fluoroscopy of Spinal Cord (ICD-10-PCS; 2016-10-26)
PROC: 5A1955Z Respiratory Ventilation, Greater than 96 Consecutive Hours (ICD-10-PCS; 2016-11-01)
PROC: 0BH17EZ Insertion of Endotracheal Airway into Trachea, Via Natural or Artificial Opening (ICD-10-PCS; 2016-11-01)
PROC: 30233S1 Transfusion of Nonautologous Globulin into Peripheral Vein, Percutaneous Approach (ICD-10-PCS; 2016-11-01)
DX: G04.81 Other encephalitis and encephalomyelitis (principal); J18.9 Pneumonia, unspecified organism; L89.150 Pressure ulcer of sacral region, unstageable; J96.01 Acute respiratory failure with hypoxia; J96.02 Acute respiratory failure with hypercapnia; E87.0 Hyperosmolality and hypernatremia; R78.81 Bacteremia; D69.6 Thrombocytopenia, unspecified; N39.0 Urinary tract infection, site not specified; E11.22 Type 2 diabetes mellitus with diabetic chronic kidney disease; I82.611 Acute embolism and thrombosis of superficial veins of right upper extremity; J98.11 Atelectasis; R13.10 Dysphagia, unspecified; E53.8 Deficiency of other specified B group vitamins; M79.89 Other specified soft tissue disorders; N18.9 Chronic kidney disease, unspecified; I12.9 Hypertensive chronic kidney disease with stage 1 through stage 4 chronic kidney disease, or unspecified chronic kidney disease; F32.9 Major depressive disorder, single episode, unspecified; E78.00 Pure hypercholesterolemia, unspecified; G40.901 Epilepsy, unspecified, not intractable, with status epilepticus; R47.02 Dysphasia; L27.0 Generalized skin eruption due to drugs and medicaments taken internally; D64.9 Anemia, unspecified; Z51.5 Encounter for palliative care; E11.65 Type 2 diabetes mellitus with hyperglycemia; E83.51 Hypocalcemia; E86.0 Dehydration; Z66 Do not resuscitate; Z78.1 Physical restraint status; B95.61 Methicillin susceptible Staphylococcus aureus infection as the cause of diseases classified elsewhere; B96.89 Other specified bacterial agents as the cause of diseases classified elsewhere; Z88.0 Allergy status to penicillin; B96.20 Unspecified Escherichia coli [E. coli] as the cause of diseases classified elsewhere; Z79.84 Long term (current) use of oral hypoglycemic drugs; Z87.891 Personal history of nicotine dependence; Z87.442 Personal history of urinary calculi; T38.0X5A Adverse effect of glucocorticoids and synthetic analogues, initial encounter; T42.6X5A Adverse effect of other antiepileptic and sedative-hypnotic drugs, initial encounter
CPT/HCPCS: 31500; 36600; 61050; 70551; 70553; 71010; 71250; 74176; 76937; 77003; 80048; 80053; 80164; 80185; 81001; 82140; 82247; 82248; 82805; 82945; 82948; 83010; 83615; 83735; 83935; 84100; 84145; 84155; 84157; 84295; 84300; 85007; 85025; 85027; 85044; 85060; 85384; 85610; 85652; 85730; 86022; 86038; 86140; 86160; 86341; 86403; 86592; 86618; 86651; 86652; 86653; 86654; 86703; 86880; 87015; 87040; 87070; 87077; 87086; 87102; 87116; 87147; 87186; 87205; 87206; 87493; 87497; 87529; 87641; 87799; 87801; 89051; 93970; 93971; 94002; 94003; 94640; 94664; 95819; A9579; C9113; C9254; J0133; J0610; J0690; J0692; J0696; J1120; J1459; J1650; J1815; J1940; J1953; J2060; J2250; J2270; J2405; J2930; J3010; J3480; J7030; J7040; J7042; J7050; J7060; Q2009; Q9967